=== PATIENT | female | born 1955 | race Caucasian/White ===

== ENCOUNTER 2018-09-23 17:17 | Observation (INO) | payer OTHER, SELFPAY ==
[2018-09-23] VITALS (12 sets, daily range): BP systolic 142–181; BP diastolic 83–127; PULSE 103–143; RESP 18–30; TEMP 36.8–37.2; O2SAT 93–98; BMI 24.7; BMI 24.5
--- NOTE | 2018-09-23 17:31 | EKG12_ITS ---
Test Reason : SOB Blood Pressure : / mmHG Vent. Rate : 124 BPM Atrial Rate : 124 BPM P-R Int : 162 ms QRS Dur : 082 ms QT Int : 296 ms P-R-T Axes : 058 065 125 degrees QTc Int : 425 ms Sinus tachycardia with Premature ventricular complexes or Fusion complexes Nonspecific ST and T wave abnormality Abnormal ECG Confirmed by SHAUNA SIBLEY, KAILEE ([id number]), publication editor GLORIA BEAN ([id number]) on 09/27/2018 1:08:24 PM Referred By: LETITIA Confirmed By:ALCIRA VILLATORO MD
[2018-09-23] MEDS: Ipratropium/Albuterol Sulfate 3 ML AMPUL.NEB INHALATION (17:43)
--- NOTE | 2018-09-23 17:48 | RAD_ITS ---
STUDY: X-RAY CHEST REASON FOR EXAM: Female, 63 years old. Cough TECHNIQUE: PA and lateral views of the chest COMPARISON: None. FINDINGS: There is elevation of the left hemidiaphragm. The lungs are clear. There are no pleural effusions. There is no pneumothorax. The cardiomediastinal contour is obscured. The visualized osseous structures are within normal limits. There is prominent gaseous distention of the colon as well as gaseous distention of the visualized small bowel. RAD/Chest PA and Lateral IMPRESSION: Clear lungs. Elevation of the left hemidiaphragm. Prominent gaseous distention of the colon as well as gaseous distention of the visualized small bowel. Correlate clinically. CT of the abdomen and pelvis with IV and by mouth contrast is suggested. Electronically Signed: Manuel Rico, at 18:02 EDT Tel , Service support ,
[2018-09-23 17:49] LABS: Absolute Lymphocyte Count 1.55 X10^3/uL (0.83-4.51); Basophil# 0.05 X10^3/uL; Basophil% 0.4 % (0-1); Eosinophil# 0.06 X10^3/uL; Eosinophils% 0.4 % (0-5); Hematocrit 41.8 % (37-47); Lymphocyte # 1.55 X10^3/ul (4.0); Lymphocyte % 11.1 % (19-41); Mean Corp Hgb Conc 33.5 g/dL (32-36); Mean Corpuscular Hgb 29.5 pg (27.0-32.0); Mean Platelet Vol. 10.3 fl (6.2-12.0); Monocyte# 1.26 X10^3/uL; NRBC Flagged by Analyzer 0 % (0-5); Neutrophil # 11.03 X10^3/uL (2.7-7.7); Neutrophil % 78.7 % (47-70); Platelet Count 325 K/mm3 (150-450); RBC Distribution Width CV 14.1 % (11.6-14.6); RBC Distribution Width SD 45.3 fl (35.1-43.9); Red Blood Count 4.75 M/mm3 (4.2-5.4)
[2018-09-23] MEDS: Albuterol 2.5 MG/3 ML VIAL.NEB. INHALATION ×2 (17:56→18:49)
[2018-09-23 18:05] LABS: ALB/GLOB Ratio 1.2 RATIO (0.9-2.4); AST(SGOT) 15 U/L (15-37); Alanine Aminotransfer ALT/SGPT 30 U/L (13-56); Alkaline Phosphatase 95 U/L (45-117); Anion Gap 8 (5-15); BUN 7 mg/dL (7-18); Calcium,Total 9.6 mg/dL (8.5-10.1); Chloride 103 mmol/L (98-107); EST Glomerular Filtration Rate 90 mL/min (>60); Est Glom Filt Rate - Afr Amer 109 mL/min (>60); Estimated Creatinine Clearance 68.05 ml/min; Globulin 3.2 g/dL (2.2-4.2); Glucose 144 mg/dL (74-106); Potassium 3.8 mmol/L (3.5-5.1); Protein, Total 7.2 g/dL (6.4-8.2); Sodium Level 134 mmol/L (136-145)
--- NOTE | 2018-09-23 18:07 | CT_ITS ---
STUDY: CTA CHEST REASON FOR EXAM: Female, 63 years old. Shortness of breath RADIATION DOSAGE (If Supplied By Facility): TECHNIQUE: The examination was performed with the intravenous administration of 100ml IV Isovue 300. Post-processing of the angiographic images was performed, with multiplanar reformation and 3D reconstruction. Individualized dose optimization techniques were used for this CT. COMPARISON: None. FINDINGS: Normal enhancement of the main pulmonary artery and right and left pulmonary arteries. Normal enhancement of the bilateral peripheral pulmonary arteries. There is no demonstrated pulmonary embolism. Normal thoracic aorta and visualized great vessels. There is no demonstrated aortic dissection. Normal heart and pericardium. Normal mediastinum. Normal hilar regions. Mild bronchial wall thickening and mild bilateral lower lobe/perihilar ground glass opacities are present. There is no dense consolidation. Normal pleura. Normal chest wall structures. Normal osseous structures. Reference CT abdomen and pelvis performed the same date for subdiaphragmatic findings. CT/CTA Chest W/WO Contrast IMPRESSION: No evidence of pulmonary embolus. Mild bronchial wall thickening and mild bilateral lower lobe/perihilar groundglass opacities, suggesting bronchitis. Electronically Signed: Manuel Rico, at 18:58 EDT Tel , Service support ,
--- NOTE | 2018-09-23 18:19 | CT_ITS ---
STUDY: CT ABDOMEN AND PELVIS WITH CONTRAST REASON FOR EXAM: Female, 63 years old. Shortness of breath RADIATION DOSAGE (If Supplied By Facility): DLP = ( 897.33 ) mGycm TECHNIQUE: Transaxial images were obtained from the dome of the diaphragm to the symphysis pubis without oral contrast. 100 ml of Isovue 300 contrast was administered. Sagittal and coronal images were reconstructed. Individualized dose optimization techniques were used for this CT. COMPARISON: None. FINDINGS: There is bronchial wall thickening at the lung bases with mild adjacent ground glass opacity. The visualized portions of the heart and pericardium are within normal limits. There are no calcified gallstones present. The liver is within normal limits. There are no suspicious hepatic lesions. The spleen is normal in size. The pancreas is within normal limits. The adrenal glands are within normal limits. There are no obstructing renal stones. There is no hydronephrosis. There is a left renal mid pole 2.9 cm cyst. Normal visualized stomach. There is no bowel obstruction or inflammation. The appendix is normal. The aorta is normal in caliber. There is no abdominal or pelvic free air, free fluid, fluid collection or lymphadenopathy. There are no destructive osseous lesions. Moderate to severe disc space loss is present at the L1-L2 level with grade [address]/Abdomen/Pelvis W IV Cont ONLY IMPRESSION: Bronchial wall thickening of the lung bases with mild adjacent groundglass opacity, possibly secondary to bronchitis. No acute intra-abdominal pathology. Electronically Signed: Manuel Rico, at 18:54 EDT Tel , Service support ,
[2018-09-23] MEDS: 0.9% Normal Saline 1,000 ML 1000 ML IV (18:25)
[2018-09-23 18:26] LABS: Lactic Acid 2.1 mmol/L (0.4-2.0)
--- NOTE | 2018-09-23 18:26 | ED.RN ---
LAB CALLED TO REPORT LACTIC 2.1, DR. DONG AND PRIMARY NURSE NOTIFIED.
--- NOTE | 2018-09-23 19:05 | ED.DCSUM_ITS ---
History of Present Illness Chief Complaint: Shortness of Breath Informant: Patient Onset: Days Context: Gradual Onset Timing: Continuous Current Severity: Moderate Maximum Severity: Severe Narrative: The patient presents to the emergency department with cough, fever, and shortness of breath. Patient has a history of asthma. She states that she was recently treated for pneumonia. She finished a course of doxycycline about a week ago. She states she is feeling better for about 3 or 4 days. Since then, she began to have worsening cough with productive sputum. She also admits to some chest tightness and dyspnea. She had a fever of 101 today. She denies any chest pain. She denies any nausea vomiting. She does admit to some generalized malaise and feels like she cannot get around without being short of breath. She has not used her inhalers at home. Prior similar symptoms: Yes Recent Illness/Hospitalization: Yes Past Medical History - Allergies and Home Meds Allergies/Adverse Reactions: Allergies erythromycin base [Erythromycin Base] Allergy (Verified 09/23/18 17:21) Rash pregabalin [From Lyrica] Allergy (Verified 09/23/18 17:21) Anaphylaxis ramipril [From Altace] Allergy (Verified 09/23/18 17:21) Anaphylaxis atenolol Adverse Reaction (Verified 09/23/18 17:21) Other Primary Care Physician: Manny Pickering MD [Primary Care Provider] - Prior records reviewed: Yes Surgical History: no surgical history Smoking Status: Never smoker Alcohol: None Drugs: None Review of Systems General: Reports: Fever Eyes: Denies: Visual changes - bilaterally, Diplopia ENT: Denies: Rhinorrhea, Sore throat Cardiovascular: Denies: Chest pain, Palpitations Respiratory: Reports: Dyspnea, Cough, Sputum Gastrointestinal: Denies: Abdominal pain, Nausea, Vomiting, Diarrhea, Melena, Hematochezia Genitourinary: Denies: Dysuria, Hematuria, Frequency Musculoskeletal: Denies: Back pain, Extremity Pain Skin: Denies: Rash, Wounds Neurological: Denies: Headache, Weakness, Numbness Psych: Denies: Depression Endocrine: Denies: Polyuria Physical Exam Vital Signs/Narrative: Vital Signs Temp Pulse Resp BP Pulse Ox 09/23/18 18:50 127 H 20 H 09/23/18 18:18 123 H 18 157/89 H 96 09/23/18 17:57 143 H 30 H 09/23/18 17:44 128 H 26 H 98 09/23/18 17:18 99 F 135 H 22 H 159/127 H 95 Inital Vital Signs reviewed: Yes General: Well nourished, Well developed, No Acute Distress Head: Normocephalic, Atraumatic Eyes: Perrl, EOMI ENT: Moist mucous membranes, No rhinorrhea Neck: Supple, Nontender Cardiovascular: Regular rhythm, No murmurs, Tachycardia Respiratory: No distress, Chest nontender, Wheezing, Decreased Air Movement Abdomen: Soft, Nontender, Nondistended, Normal bowel sounds Back: Nontender, Normal Inspection Extremities: Nontender, No edema Skin: Normal color, No rash Neurological: Alert, Oriented x3, Cranial nerves II-XII grossly intact, Normal Strength, Normal Sensation Psychological: Normal affect, Normal Mood Diagnostic/Tx/Re-eval Chest X-Ray - ED: 2 View, Normal, Heart, Lungs Clinical Impression(s) from Imaging Studies Chest X-Ray 09/23/18 17:48 IMPRESSION: Clear lungs. Elevation of the left hemidiaphragm. Prominent gaseous distention of the colon as well as gaseous distention of the visualized small bowel. Correlate clinically. CT of the abdomen and pelvis with IV and by mouth contrast is suggested. Electronically Signed: Manuel Rico, at 18:02 EDT Tel , Service support , Chest CTA 09/23/18 18:07 IMPRESSION: No evidence of pulmonary embolus. Mild bronchial wall thickening and mild bilateral lower lobe/perihilar groundglass opacities, suggesting bronchitis. Electronically Signed: Manuel Rico, at 18:58 EDT Tel , Service support , Abdomen/Pelvis CT 09/23/18 18:19 IMPRESSION: Bronchial wall thickening of the lung bases with mild adjacent groundglass opacity, possibly secondary to bronchitis. No acute intra-abdominal pathology. Electronically Signed: Manuel Rico, at 18:54 EDT Tel , Service support , Abnormal Lab Results 09/23/18 09/23/18 09/23/18 17:40 17:40 17:40 WBC 14.0 H RBC 4.75 Hgb 14.0 Hct 41.8 MCV 88.0 MCH 29.5 MCHC 33.5 RDW Std Deviation 45.3 H RDW Coeff of Elisabeth 14.1 Plt Count 325 MPV 10.3 Immature Gran % (Auto) 0.400 Neut % (Auto) 78.7 H Lymph % (Auto) 11.1 L [place] % (Auto) 9.0 Eos % (Auto) 0.4 Baso % (Auto) 0.4 Absolute Neuts (auto) 11.0 H Absolute Lymphs (auto) 1.55 Nucleated RBC % 0 Sodium 134 L Potassium 3.8 Chloride 103 Carbon Dioxide 23.0 Anion Gap 8 BUN 7 Creatinine 0.70 Estim Creat Clear Calc 68.05 Est GFR (MDRD) Af Amer 109 Est GFR (MDRD) Non-Af 90 BUN/Creatinine Ratio 10.0 Glucose 144 H Lactic Acid 2.1 H Calcium 9.6 Total Bilirubin 0.80 AST 15 ALT 30 Alkaline Phosphatase 95 Troponin I < 0.015 Total Protein 7.2 Albumin 4.0 Globulin 3.2 Albumin/Globulin Ratio 1.2 - Rhythm Strip Rhythm Strip: Sinus Tach Rate: 130 Ectopy: None - EKG Initial EKG Interpretation: No Acute Injury Pattern, Sinus Tachycardia Prior: Unchanged - Medical Decision Making The patient presents with cough, fever, and shortness of breath. She has diminished air movement and wheezing all lung barnes. She is also tachypneic and tachycardic. Sepsis work-up was pursued. Chest x-ray does not show evidence of focal infiltrate, however the patient does have a leukocytosis and a mildly elevated lactic acid. With her persistent tachycardia and dyspnea, I did obtain a CTA of her chest. There is no evidence of pulmonary embolus but she does have patchy bilateral lower lobe infiltrates. The patient will be started on IV Levaquin. Given her persistent dyspnea, I do feel that she would benefit from admission. The patient was discussed with the hospitalist. Impression 1. Acute dyspnea 2. Bronchitis with persistent bronchospasm 3. Sepsis ED Disposition - Plan for ED Patient: Referrals: Manny Pickering MD [Primary Care Provider] -
--- NOTE | 2018-09-23 19:07 | NURSING ---
3 ATTEMPTS AT COLLECTING THE SECOND BLOOD CULTURE WAS DONE AND UNSUCCESSFUL. DR DONG NOTIFIED.
--- NOTE | 2018-09-23 19:09 | HP.PCM_ITS ---
History of Present Illness Date of Admission: 09/23/18 Chief Complaint: shortness of breath, wheezing The patient is a 63 year old F with past medical history of asthma, hypertension and diabetes as well as hyperlipidemia. She was admitted through the ED on 09/23/2018 with complaint of shortness of breath, wheezing and a cough for the past few days. Patient states was treated for pneumonia about 2 weeks ago with a course of p.o. doxycycline and states she completed the course. A few days ago started having worsening shortness of breath with wheezing and a cough productive of greenish sputum. Patient states she has not been very compliant with her asthma inhalers because she was not sure if she needed it or not. She had no assisted fever or chills but states wheezing and shortness of breath got worse to the point where she could not fully complete her sentences so she decided to come into the ED. Review of systems is otherwise negative. In the ED, vitals were significant for pulse rate of 128, respiratory rate of 23 and blood pressure 181/90. She was saturating at 96% on room air. CBC showed white cell count of 14 and BMP was unremarkable. Lactic acid was elevated at 2.1. Chest x-ray done showed clear lungs and elevation of the left hemidiaphragm with prominent gaseous distention of the colon as well as gaseous distention of the visualized small bowel. CT of the chest showed no evidence of PE but showed mild bronchial wall thickening and mild bilateral lower lobe and perihilar groundglass opacity suggesting bronchitis. CT of the abdomen and pelvis showed no acute intra-abdominal pathology but showed bronchial wall thickening of the lung bases with mild adjacent groundglass opacities possibly secondary to bronchitis. She has been admitted for acute asthma exacerbation and sepsis due to infectious bronchitis. [] Past Medical History Allergies erythromycin base [Erythromycin Base] Allergy (Verified 09/23/18 17:21) Rash pregabalin [From Lyrica] Allergy (Verified 09/23/18 17:21) Anaphylaxis ramipril [From Altace] Allergy (Verified 09/23/18 17:21) Anaphylaxis atenolol Adverse Reaction (Verified 09/23/18 17:21) Other Home Medications: Ambulatory Orders Medication Instructions Recorded Atorvastatin Calcium [Lipitor] 20 mg PO QHS 04/02/13 Irbesartan [Avapro] 150 mg PO DAILY 04/02/13 Montelukast [Singulair] 10 mg PO DAILY 04/02/13 metFORMIN HCl [Glucophage] 500 mg PO DAILY 04/02/13 Aspirin [Aspir 81] 81 mg PO DAILY 09/23/18 Cetirizine HCl [Zyrtec] 10 mg PO DAILY 09/23/18 Cholecalciferol (VIT D3) [Vitamin 1,000 unit PO DAILY 09/23/18 D] Gabapentin [Neurontin] 300 mg PO BID 09/23/18 Meloxicam 15 mg PO DAILY 09/23/18 Multivit-Min/Iron/Folic/Lutein 1 tab PO DAILY 09/23/18 [Centrum Silver Women Tablet] Tolterodine Tartrate [Tolterodine 4 mg PO DAILY 09/23/18 Tartrate ER] Surgical History: no surgical history Psychiatric History: No pertinent psych hx 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 Denies: Chills, Fever, Weight Change Eyes: Denies: Blurred vision HEENT: Denies: Head Aches, Sinus Congestion, Sinus Drainage Cardiovascular: Denies: Chest Pain, Palpitations Respiratory: Reports: Cough, Shortness of Breath, Shortness of breath at rest, Shortness of breath upon exertion, Sputum production, Wheezing Gastrointestinal: Denies: Abdominal Pain, Nausea, Vomiting Genitourinary: Denies: Dysuria Musculoskeletal: Denies: Joint Pain, Joint Tenderness Skin: Denies: Rash, Wounds Neurological: Denies: Numbness, Tingling, Focal weakness Psychiatric: Denies: Anxiety, Depression, Homicidal Ideations, Suicidal Ideations Hematologic/ Lymphatic: Denies: Easy Bruising, Easy Bleeding VTE Information - Inpt Only VTE Present on Admission: No VTE Pharm Prophylaxis ordered?: Yes - Physical Exam General: Alert, Oriented x3, Cooperative, Lethargic HEENT: Atraumatic, PERRLA, EOMI, Normocephalic Oral: Dry Mucosa Neck: Supple, No JVD, Negative Carotid Bruits Lungs: Tachypneic, Using Accessory Muscles, Wheezes, - - decreased breath sounds in all lung barnes, with audible expiratory wheezing adn rhonchi, as well as few crackles in all lung barnes. has difficulty completing sentences without getting SOB. Cardiovascular: Normal S1, Normal S2, No murmurs, Tachycardic Abdomen: Bowel Sounds Present, Soft, Non Tender Extremities: No clubbing, No cyanosis, No edema, Capillary Refill Less than 3 Seconds Skin: No rashes, No breakdown Musculoskeletal: No Tenderness to Palpation of Joints or Extremities Lymphatic: No Cervical, Supraclavicular, or Inguinal Adenopathy Neurological: Cranial nerves II-XII grossly intact, Neuro grossly intact, Motor Exam 5/5 strength throughout Psych/Mental Status: Normal Affect, Appropriate, Alert and oriented to time, place, person, mood and affect Vital Signs Temp Pulse Resp BP Pulse Ox 99 F 127 H 20 H 157/89 H 96 09/23/18 17:18 09/23/18 18:50 09/23/18 18:50 09/23/18 18:18 09/23/18 18:18 Oxygen Delivery Method Room Air Weight: 140 lb Body Mass Index (BMI) 24.7 Laboratory Tests Past 24 Hrs 09/23/18 09/23/18 09/23/18 17:40 17:40 17:40 WBC 14.0 H RBC 4.75 Hgb 14.0 Hct 41.8 MCV 88.0 MCH 29.5 MCHC 33.5 RDW Std Deviation 45.3 H RDW Coeff of Elisbaeth 14.1 Plt Count 325 MPV 10.3 Immature Gran % (Auto) 0.400 Neut % (Auto) 78.7 H Lymph % (Auto) 11.1 L [place] % (Auto) 9.0 Eos % (Auto) 0.4 Baso % (Auto) 0.4 Absolute Neuts (auto) 11.0 H Absolute Lymphs (auto) 1.55 Nucleated RBC % 0 Sodium 134 L Potassium 3.8 Chloride 103 Carbon Dioxide 23.0 Anion Gap 8 BUN 7 Creatinine 0.70 Estim Creat Clear Calc 68.05 Est GFR (MDRD) Af Amer 109 Est GFR (MDRD) Non-Af 90 BUN/Creatinine Ratio 10.0 Glucose 144 H Lactic Acid 2.1 H Calcium 9.6 Total Bilirubin 0.80 AST 15 ALT 30 Alkaline Phosphatase 95 Troponin I < 0.015 Total Protein 7.2 Albumin 4.0 Globulin 3.2 Albumin/Globulin Ratio 1.2 Diagnostic Data Chest X-Ray 09/23/18 17:48 IMPRESSION: Clear lungs. Elevation of the left hemidiaphragm. Prominent gaseous distention of the colon as well as gaseous distention of the visualized small bowel. Correlate clinically. CT of the abdomen and pelvis with IV and by mouth contrast is suggested. Electronically Signed: Manuel Rico, at 18:02 EDT Tel , Service support , Chest CTA 09/23/18 18:07 IMPRESSION: No evidence of pulmonary embolus. Mild bronchial wall thickening and mild bilateral lower lobe/perihilar groundglass opacities, suggesting bronchitis. Electronically Signed: Manuel Rico, at 18:58 EDT Tel , Service support , Abdomen/Pelvis CT 09/23/18 18:19 IMPRESSION: Bronchial wall thickening of the lung bases with mild adjacent groundglass opacity, possibly secondary to bronchitis. No acute intra-abdominal pathology. Electronically Signed: Manuel Richteri, at 18:54 EDT Tel , Service support , Assessment/Plan 63-year-old female admitted with a complaint of worsening shortness of breath and a cough productive of greenish sputum. 1. Sepsis due to acute bronchitis * admit to PCU with telemetry * SIRS criteria is 3/4 (tachycardia, tachypnea and leucocytosis) * started on IV levaquin; will continue * get sputum cultures and blood cultures, as well as urine for strep and legionella antigens * hydrate gently with IVF * repeat lactic acid as per sepsis protocol; lactic acid was 2.1 2. Acute asthmatic exacerbation precipitated by acute bronchitis * Also worsened by noncompliance with her inhalers. Tachycardia and tachypnea could also be due to acute asthma exacerbation. * That IV Solu-Medrol 40 mg every 8. States she has not been on steroids recently. * Breathing treatments with DuoNeb's. * Titrate oxygen to maintain saturation above 90%. * To put on BiPAP as needed. * Continue Singulair * 3. Hypertension: Fairly controlled. On atorvastatin. 4. Diabetes mellitus: On metformin 500 mg daily. Will hold on account of lactic acidosis. Sliding scale. Accuchecks ACHS DVT prophylaxis: Lovenox Code Status: Full code * Patient counseled extensively about different types of CODE STATUS including full code, DNR CCA and DNR CCA. Patient elects to be (). Total [id number] time () minutes. Code Visit Inpatient E&M: 49246 Init Hosp L3 Procedures: 91205 Advncd Care Plan 30 Min
[2018-09-23] MEDS: levoFLOXacin IV 500 MG/100 ML BAG 100 MG IV (19:16)
[2018-09-23] MEDS: MethylPREDNISolone 125 MG/2 ML Vial IV (19:16)
[2018-09-23 21:42] LABS: Reflex Lactate? Y
[2018-09-23] MEDS: 0.9% Normal Saline 1,000 ML 150 ML IV (22:03)
[2018-09-23] MEDS: Insulin Lispro 100 UNIT/ML INSULN.PEN SC (22:13)
[2018-09-23 22:30] LABS: Lactic Acid 3.9 mmol/L (0.4-2.0)
--- NOTE | 2018-09-23 23:30 | NURSING ---
This RN gave report to step down RN and handed over care at this time.
[2018-09-23 23:40] LABS: Allen Test POS; Base Excess -6 mmol/L (-2 to +2); Blood Gas Specimen Type ART; O2 Delivery Device Nasal Can; PO2 92 mmHG (75-100); SITE L Radial; SO2 97 % (95-99); Time Given 2320; Total Carbon Dioxide 20 mmol/L; pCO2 29.9 mmHg (35-45); pH 7.41 (7.35-7.45)
[2018-09-24] VITALS (18 sets, daily range): BP systolic 111–160; BP diastolic 78–99; PULSE 82–108; RESP 12–24; TEMP 36.6–36.9; O2SAT 94–100
[2018-09-24 00:06] LABS: Bedside Glucose 152 mg/dL (70-110)
[2018-09-24] MEDS: guaiFENesin 1,200 MG Tablet 1200 MG PO ×2 (00:09→09:49)
[2018-09-24] MEDS: 0.9% Normal Saline 1,000 ML 999 ML IV (00:10)
--- NOTE | 2018-09-24 01:21 | CPS ---
Attempted to start bipap on pt, 09/12 and 11/13 both settings pt said it felt like she was being smothered. Pt unable to tolerate bipap. 2L nasal o2 on , pt breathing easy and comfortable with head of bed up. RN notified.
[2018-09-24] MEDS: 0.9% Normal Saline 1,000 ML 150 ML IV (01:32)
[2018-09-24 02:04] LABS: Bacteria 0 SEEN /hpf (None Seen); Mucous, Urine 0 SEEN /hpf (<or=2+); Squamous Epithelial Cells - UA 0 SEEN /hpf (5-10); White Blood Cells 0 SEEN /hpf (0-5)
[2018-09-24 02:07] LABS: Color, Urine Straw (Yellow); Glucose, Dipstick 50 mg/dl (Normal); Ketone-Dipstick 50 mg/dl (Negative); Leukocyte Esterase-Dipstick Negative /ul (Negative); Nitrite-Dipstick Negative (Negative); Occult Blood-Urine 10 /ul (Negative); Protein-Dipstick Negative (Negative); Urine Bilirubin Dipstick Negative (Negative); Urine Clarity Clear (Clear); Urine Urobilinogen Normal (Normal)
[2018-09-24 02:13] LABS: Red Blood Cells-Urine 0-5 SEEN /hpf (0-5)
[2018-09-24 02:42] LABS: Lactic Acid 1.6 mmol/L (0.4-2.0)
[2018-09-24] MEDS: 0.9% NaCl Peripheral Flush Adult/Peds IV ×2 (05:07→14:25)
[2018-09-24 06:33] LABS: Absolute Lymphocyte Count 0.63 X10^3/uL (0.83-4.51); Absolute Neutrophil Count 11.6 X10^3/uL (2.0-7.7); Basophil# 0.01 X10^3/uL; Basophil% 0.1 % (0-1); Hematocrit 34.6 % (37-47); Hemoglobin 11.5 g/dL (12.0-15.0); Lymphocyte # 0.63 X10^3/ul (4.0); Mean Corp Hgb Conc 33.2 g/dL (32-36); Mean Corpuscular Hgb 29.2 pg (27.0-32.0); Mean Corpuscular Volume 87.8 fL (81-99); Mean Platelet Vol. 10.3 fl (6.2-12.0); Monocyte# 0.28 X10^3/uL; Monocyte% 2.2 % (0-10); NRBC Flagged by Analyzer 0 % (0-5); Neutrophil % 92.3 % (47-70); Platelet Count 273 K/mm3 (150-450); RBC Distribution Width CV 14.3 % (11.6-14.6); RBC Distribution Width SD 45.7 fl (35.1-43.9); Red Blood Count 3.94 M/mm3 (4.2-5.4); White Blood Count 12.6 K/mm3 (4.4-11.0)
[2018-09-24] MEDS: Insulin Lispro 100 UNIT/ML INSULN.PEN SC ×2 (06:34→11:58)
[2018-09-24 06:46] LABS: Bedside Glucose 155 mg/dL (70-110)
[2018-09-24 06:56] LABS: Anion Gap 8 (5-15); BUN 5 mg/dL (7-18); BUN/Creat Ratio 9.8 RATIO (10-20); Calcium,Total 7.8 mg/dL (8.5-10.1); Chloride 112 mmol/L (98-107); Creatinine, Serum 0.51 mg/dL (0.55-1.02); EST Glomerular Filtration Rate 130 mL/min (>60); Est Glom Filt Rate - Afr Amer 157 mL/min (>60); Glucose 166 mg/dL (74-106); Potassium 3.6 mmol/L (3.5-5.1); Sodium Level 142 mmol/L (136-145)
[2018-09-24] MEDS: Multivitamins,Ther W-Minerals Tablet 1 TABLET PO (08:42)
[2018-09-24] MEDS: Gabapentin 300 MG Capsule PO (08:42)
[2018-09-24] MEDS: Aspirin E.C. 81 MG Tablet PO (08:42)
[2018-09-24] MEDS: Loratadine 10 MG Tablet PO (09:49)
[2018-09-24] MEDS: Tolterodine Tartrate 4 MG CAP.SA PO (09:49)
[2018-09-24] MEDS: Enoxaparin 40 MG/0.4 ML Syringe SC (09:49)
[2018-09-24] MEDS: Losartan Potassium 50 MG Tablet PO (09:49)
[2018-09-24] MEDS: Meloxicam 15 MG Tablet PO (09:49)
[2018-09-24] MEDS: Montelukast 10 MG Tablet PO (09:49)
[2018-09-24] MEDS: levoFLOXacin IV 750 MG/150 ML BAG 100 MG IV (10:11)
[2018-09-24] MEDS: Ipratropium/Albuterol Sulfate 3 ML AMPUL.NEB INHALATION (11:15)
--- NOTE | 2018-09-24 11:15 | DCINST_ITS ---
You will use the following diet at home:: Calorie/Carbohydrate Controlled (specify 1200, 1400, etc) - 1800 calories/day Your food should be the consistency of: Regular Your liquids should be the consistency of: Regular/Thin Discharge Activity: Return to Normal Activity Call your doctor if you observe: Fever of 101 or Higher, Shortness of breath Allergies/Adverse Reactions: Allergies erythromycin base [Erythromycin Base] Allergy (Verified 09/23/18 17:21) Rash pregabalin [From Lyrica] Allergy (Verified 09/23/18 17:21) Anaphylaxis ramipril [From Altace] Allergy (Verified 09/23/18 17:21) Anaphylaxis atenolol Adverse Reaction (Verified 09/23/18 17:21) Other Medications to take at Discharge Atorvastatin Calcium [Lipitor] 20 mg PO QHS 04/02/13 Irbesartan [Avapro] 150 mg PO DAILY 04/02/13 Montelukast [Singulair] 10 mg PO DAILY 04/02/13 Aspirin [Aspir 81] 81 mg PO DAILY 09/23/18 Cetirizine HCl [Zyrtec] 10 mg PO DAILY 09/23/18 Cholecalciferol (VIT D3) [Vitamin D3] 1,000 unit PO DAILY 09/23/18 Gabapentin [Neurontin] 300 mg PO BID 09/23/18 Meloxicam 15 mg PO DAILY 09/23/18 Multivit-Min/Iron/Folic/Lutein [Centrum Silver Women Tablet] 1 tab PO DAILY 09/23/18 Tolterodine Tartrate [Tolterodine Tartrate ER] 4 mg PO DAILY 09/23/18 Albuterol Inhaler [Ventolin Hfa] 1 - 2 puff INHALATION Q4H PRN PRN #1 inhaler 09/24/18 Guaifenesin [Mucinex] 1,200 mg PO BID #10 tab 09/24/18 Prednisone 2 tab PO DAILY #10 tab 09/24/18 levoFLOXacin tablet [Levaquin tablet] 750 mg PO DAILY #5 tab 09/24/18 metFORMIN HCl [Glucophage] 500 mg PO DAILY #0 09/24/18 The following prescriptions were given: levoFLOXacin tablet [Levaquin tablet] 750 mg PO DAILY #5 tab Transmission Status: Pending to [facility] Guaifenesin [Mucinex] 1,200 mg PO BID #10 tab Transmission Status: Pending to [facility] Prednisone 2 tab PO DAILY #10 tab Transmission Status: Pending to [facility] Albuterol Inhaler [Ventolin Hfa] 1 - 2 puff INHALATION Q4H PRN PRN #1 inhaler PRN Reason: Shortness Of Breath Transmission Status: Pending to [facility] Primary Care Physician: Manny Pickering MD [Primary Care Provider] - Within 1 Week Test Results: Test results from this visit will be discussed in further detail at your follow- up appointment, if applicable. Proposed Discharge Date: 09/24/18
--- NOTE | 2018-09-24 11:17 | PCM.DC.SUM ---
Discharge Date and Diagnosis - Problem List Patient Problems: Active and Suspected Problems Severe sepsis (Acute) Bronchitis (Acute) Date of Admission: 09/23/18 Date of Discharge: 09/24/18 - Primary Discharge Diagnosis Active and Suspected Problems Bronchitis (Acute) Hospital Course and Treatment Imaging Results: Clinical Impression(s) from Imaging Studies Chest X-Ray 09/23/18 17:48 IMPRESSION: Clear lungs. Elevation of the left hemidiaphragm. Prominent gaseous distention of the colon as well as gaseous distention of the visualized small bowel. Correlate clinically. CT of the abdomen and pelvis with IV and by mouth contrast is suggested. Electronically Signed: Manuel Rico, at 18:02 EDT Tel , Service support , Chest CTA 09/23/18 18:07 IMPRESSION: No evidence of pulmonary embolus. Mild bronchial wall thickening and mild bilateral lower lobe/perihilar groundglass opacities, suggesting bronchitis. Electronically Signed: Manuel Rico, at 18:58 EDT Tel , Service support , Abdomen/Pelvis CT 09/23/18 18:19 IMPRESSION: Bronchial wall thickening of the lung bases with mild adjacent groundglass opacity, possibly secondary to bronchitis. No acute intra-abdominal pathology. Electronically Signed: Manuel Rico, at 18:54 EDT Tel , Service support , Operations: None Procedures: None Summary of Care Provided: The patient is a 63 year old F presents with cough, fever and shortness of breath. Patient was treated recently with an biotics for pneumonia with doxycycline and was feeling well for a few days way to get worse. At home, patient had a fever of 101 Fahrenheit. Presented to the emergency room and underwent CAT scans that showed some bronchitis and no definitive infiltrate. Patient was brought to the hospital, started on high-dose IV steroids with methylprednisolone 40 mg 3 times daily plus received 2 doses of Levaquin. Today, the patient is feeling much better. Does have some faint crackles in bases but otherwise clear otherwise doing well. Patient had an amatory pulse ox to see if she does require any oxygen when she leaves but that patient be discharged with prednisone burst, complete 7-day course of Levaquin and an albuterol metered-dose inhaler. Patient instructed to follow-up with primary care provider in about a week's time to make sure that she is continued to improve. Patient did take only have a severe sepsis upon arrival with a lactic acid initially 2.1 that peaked at 3.9. Patient is also tachycardic and tachypneic. [] Patient Problems: Active and Suspected Problems Severe sepsis (Acute) Bronchitis (Acute) - Physical Exam General: Alert, No apparent distress HEENT: Atraumatic, Normocephalic Oral: Moist Mucosa, No Gingival or Mucosal Lesions/ Ulcerations Neck: No Nodes, Thyroid Normal Size and Texture Lungs: Diminished, - - bibasilar crackles. Cardiovascular: Regular rate, Regular Rhythm, Normal S1, Normal S2, No murmurs Abdomen: Bowel Sounds Present, Soft, Non Tender, Non-Distended, No Hepato-splenomegaly Extremities: No edema, No Calf Tenderness Skin: No rashes, No breakdown Psych/Mental Status: Normal Affect, Appropriate Vital Signs Temp Pulse Resp BP Pulse Ox 36.7 C 104 H 18 128/87 H 98 09/24/18 09:40 09/24/18 11:07 09/24/18 09:40 09/24/18 09:40 09/24/18 09:40 Oxygen Flow Rate (L/min) 2 Oxygen Delivery Method Nasal Cannula Weight: 62.8 kg Body Mass Index (BMI) 24.5 Intake and Output for Last 24 Hours 09/22/18 09/23/18 09/24/18 23:59 23:59 23:59 Intake Total 2637 / 2637 Output Total 1502 / 1502 Balance 1135 / 1135 Microbiology Past 72 Hours 09/24/18 08:32 Gram Stain - Final Sputum, Expectorated/Coughed Laboratory Tests Past 24 Hrs 09/23/18 09/23/18 09/23/18 17:40 17:40 17:40 WBC 14.0 H RBC 4.75 Hgb 14.0 Hct 41.8 MCV 88.0 MCH 29.5 MCHC 33.5 RDW Std Deviation 45.3 H RDW Coeff of Elisabeth 14.1 Plt Count 325 MPV 10.3 Immature Gran % (Auto) 0.400 Neut % (Auto) 78.7 H Lymph % (Auto) 11.1 L [place] % (Auto) 9.0 Eos % (Auto) 0.4 Baso % (Auto) 0.4 Absolute Neuts (auto) 11.0 H Absolute Lymphs (auto) 1.55 Nucleated RBC % 0 Specimen Type Sample Site pH Bicarbonate Actual POC Total CO2 Base Excess O2 Saturation ABG pCO2 ABG pO2 [place] Test O2 Delivery Device Liter Flow Blood Gas Notified Whom Blood Gas Notified Time Sodium 134 L Potassium 3.8 Chloride 103 Carbon Dioxide 23.0 Anion Gap 8 BUN 7 Creatinine 0.70 Estim Creat Clear Calc 68.05 Est GFR (MDRD) Af Amer 109 Est GFR (MDRD) Non-Af 90 BUN/Creatinine Ratio 10.0 Glucose 144 H Lactic Acid 2.1 H Calcium 9.6 Total Bilirubin 0.80 AST 15 ALT 30 Alkaline Phosphatase 95 Troponin I < 0.015 Total Protein 7.2 Albumin 4.0 Globulin 3.2 Albumin/Globulin Ratio 1.2 Urine Color Urine Clarity Urine pH Ur Specific [place] Urine Protein Urine Glucose (UA) Urine Ketones Urine Occult Blood Urine Nitrite Urine Bilirubin Urine Urobilinogen Ur Leukocyte Esterase Urine RBC Urine WBC Ur Squamous Epith Cells Urine Bacteria Urine Mucus 09/23/18 09/23/18 09/24/18 21:57 23:33 01:50 WBC RBC Hgb Hct MCV MCH MCHC RDW Std Deviation RDW Coeff of Elisabeth Plt Count MPV Immature Gran % (Auto) Neut % (Auto) Lymph % (Auto) [place] % (Auto) Eos % (Auto) Baso % (Auto) Absolute Neuts (auto) Absolute Lymphs (auto) Nucleated RBC % Specimen Type ART Sample Site L Radial pH 7.41 Bicarbonate Actual 19.0 L POC Total CO2 20 Base Excess -6 L O2 Saturation 97 ABG pCO2 29.9 L ABG pO2 92 [place] Test POS O2 Delivery Device Nasal Can Liter Flow 2.0 Blood Gas Notified Whom [facility] Blood Gas Notified Time 2320 Sodium Potassium Chloride Carbon Dioxide Anion Gap BUN Creatinine Estim Creat Clear Calc Est GFR (MDRD) Af Amer Est GFR (MDRD) Non-Af BUN/Creatinine Ratio Glucose Lactic Acid 3.9 H Calcium Total Bilirubin AST ALT Alkaline Phosphatase Troponin I Total Protein Albumin Globulin Albumin/Globulin Ratio Urine Color Straw Urine Clarity Clear Urine pH 6.0 Ur Specific [place] 1.010 Urine Protein Negative Urine Glucose (UA) 50 H Urine Ketones 50 H Urine Occult Blood 10 H Urine Nitrite Negative Urine Bilirubin Negative Urine Urobilinogen Normal Ur Leukocyte Esterase Negative Urine RBC 0-5 SEEN Urine WBC 0 SEEN Ur Squamous Epith Cells 0 SEEN Urine Bacteria 0 SEEN Urine Mucus 0 SEEN 09/24/18 09/24/18 09/24/18 02:11 05:45 05:45 WBC 12.6 H RBC 3.94 L Hgb 11.5 L Hct 34.6 L MCV 87.8 MCH 29.2 MCHC 33.2 RDW Std Deviation 45.7 H RDW Coeff of Elisabeth 14.3 Plt Count 273 MPV 10.3 Immature Gran % (Auto) 0.400 Neut % (Auto) 92.3 H Lymph % (Auto) 5.0 L [place] % (Auto) 2.2 Eos % (Auto) 0.0 Baso % (Auto) 0.1 Absolute Neuts (auto) 11.6 H Absolute Lymphs (auto) 0.63 L Nucleated RBC % 0 Specimen Type Sample Site pH Bicarbonate Actual POC Total CO2 Base Excess O2 Saturation ABG pCO2 ABG pO2 [place] Test O2 Delivery Device Liter Flow Blood Gas Notified Whom Blood Gas Notified Time Sodium 142 Potassium 3.6 Chloride 112 H Carbon Dioxide 22.0 Anion Gap 8 BUN 5 L Creatinine 0.51 L Estim Creat Clear Calc 93.40 Est GFR (MDRD) Af Amer 157 Est GFR (MDRD) Non-Af 130 BUN/Creatinine Ratio 9.8 L Glucose 166 H Lactic Acid 1.6 Calcium 7.8 L Total Bilirubin AST ALT Alkaline Phosphatase Troponin I Total Protein Albumin Globulin Albumin/Globulin Ratio Urine Color Urine Clarity Urine pH Ur Specific [place] Urine Protein Urine Glucose (UA) Urine Ketones Urine Occult Blood Urine Nitrite Urine Bilirubin Urine Urobilinogen Ur Leukocyte Esterase Urine RBC Urine WBC Ur Squamous Epith Cells Urine Bacteria Urine Mucus POC Glucose 09/24/18 09/23/18 06:30 22:05 POC Glucose 155 H 152 H Discharge Diet: 1800 Calorie Control Diet Discharge Activity: Return to Normal Activity Call your doctor if you observe: Fever of 101 or Higher, Shortness of breath Home Medications: Medications to take at Discharge Atorvastatin Calcium [Lipitor] 20 mg PO QHS 04/02/13 Irbesartan [Avapro] 150 mg PO DAILY 04/02/13 Montelukast [Singulair] 10 mg PO DAILY 04/02/13 Aspirin [Aspir 81] 81 mg PO DAILY 09/23/18 Cetirizine HCl [Zyrtec] 10 mg PO DAILY 09/23/18 Cholecalciferol (VIT D3) [Vitamin D3] 1,000 unit PO DAILY 09/23/18 Gabapentin [Neurontin] 300 mg PO BID 09/23/18 Meloxicam 15 mg PO DAILY 09/23/18 Multivit-Min/Iron/Folic/Lutein [Centrum Silver Women Tablet] 1 tab PO DAILY 09/23/18 Tolterodine Tartrate [Tolterodine Tartrate ER] 4 mg PO DAILY 09/23/18 Albuterol Inhaler [Ventolin Hfa] 1 - 2 puff INHALATION Q4H PRN PRN #1 inhaler 09/24/18 Guaifenesin [Mucinex] 1,200 mg PO BID #10 tab 09/24/18 Prednisone 2 tab PO DAILY #10 tab 09/24/18 levoFLOXacin tablet [Levaquin tablet] 750 mg PO DAILY #5 tab 09/24/18 metFORMIN HCl [Glucophage] 500 mg PO DAILY #0 09/24/18 Following Prescrptions Were Given to Patient: levoFLOXacin tablet [Levaquin tablet] 750 mg PO DAILY #5 tab Transmission Status: Pending to [facility] Guaifenesin [Mucinex] 1,200 mg PO BID #10 tab Transmission Status: Pending to [facility] Prednisone 2 tab PO DAILY #10 tab Transmission Status: Pending to [facility] Albuterol Inhaler [Ventolin Hfa] 1 - 2 puff INHALATION Q4H PRN PRN #1 inhaler PRN Reason: Shortness Of Breath Transmission Status: Pending to [facility] Primary Care Physician: Manny Pickering MD [Primary Care Provider] - Within 1 Week Disposition: Home Minutes spent on discharge:: 28 Patient Condition:: Good Medical Necessity - Tobacco Use Smoking Status: Never smoker Meaningful Use Info Meaningful Use Diagnoses (Choose all that apply): None applicable Code Visit OBSV E&M: 58198 Observation care discharge
--- NOTE | 2018-09-24 11:45 | CASEMGMT ---
RN CM Assessment Presentation: Severe Sepsis, Bronchitis Intro role of CM and purpose of RN CM assessment to patient in room. Demographics, PCP and Pharmacy verified. Pt states she is independent, active and plans to return home on discharge. Pt is on O2 2L NC now, however does not use Oxygen at home. If continues, may need testing prior to dc, but anticipate pt will not require. PCP: Dr. Pickering Specialists: (hand and foot doctor) no other specialists per pt. Preferred Pharmacy: [facility] Insurance: [employer] Prescription Benefit: yes LNOK: SisterUnique Living Arrangements: Lives independently. No care needs identified. Pt states she is active normally. Transportation: pt drives DME: none HHC: none Patient DC goals: Home DC PLAN: Home Mabel RODRIGUEZ RN ACM
[2018-09-24 12:11] LABS: Bedside Glucose 170 mg/dL (70-110)
== END 2018-09-24 15:00 | disposition home or self-care (01) ==
LOC: ED 18:00 → PCU 09-24 07:12
PROVIDERS: Admitting Provider Student in an Organized Health Care Education/Training Program; Emergency Provider Emergency Medicine; Family Provider Family Medicine; PCP Family Medicine
DX: J20.9 Acute bronchitis, unspecified (principal); J45.901 Unspecified asthma with (acute) exacerbation; E11.9 Type 2 diabetes mellitus without complications; E78.5 Hyperlipidemia, unspecified; I10 Essential (primary) hypertension; Z91.14 Patient's other noncompliance with medication regimen; Z66 Do not resuscitate; Z79.82 Long term (current) use of aspirin; Z79.899 Other long term (current) drug therapy; Z88.1 Allergy status to other antibiotic agents; Z91.19 Patient's noncompliance with other medical treatment and regimen
CPT/HCPCS: 36415; 36600; 71046; 71275; 74177; 80048; 80053; 81001; 82803; 82962; 83605; 84484; 85025; 87040; 87070; 87205; 93005; 94002; 94640; 94667; 94762; 96361; 96365; 96366; 96376; 99218; 99251; 99285; J7030; Q9967; A4216; G0378; G0463

== ENCOUNTER 2018-11-30 08:00 | Outpatient (RCR) | payer OTHER, SELFPAY ==
[2018-09-23 20:05] VITALS: BMI 24.5
--- NOTE | 2018-11-01 09:03 | HP.PTEVAL_ITS ---
Patient's Visit Information FROY PITTMAN is a 63 year old F referred to Physical Therapy by Luis Kelley MD with a diagnosis of L RC Tear. Date of Evaluation: 11/01/18 Physical Therapist: Lorraine Smith DPT - Visit Plan Frequency: 2x /Week Duration: 4 Weeks Plan: Focus on UE strengthening, scapular/core s/s, decreasing pain. 11/01/18 HEP Prescribed: scapular retractions, B Ext. Rot., Serratus Wall Presses- postural education - Subjective Findings: Torn L RC. Previous attended PT at [facility] 5 years ago for torn RC. Reports tear has gotten worse/larger. 08/06/18 MRI - Confirmed L RC tear. Went back to for MRI after reaching for can of soup off second shelf & felt a clunk. Lives alone. Describes pain as strong ache. Worst: 8/10 Aggravating factors: sleeping on L side, picking up objects, reaching for objects, reaching for seatbelt (or any other time behind). best: 10 Relieving factors: Resting. After painful activity pain takes awhile to subside. Disrupts sleeping at night. 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 Pain localized to L shoulder. Just got over bronchitis 2 weeks ago after hospital stay & medication prescribed, x-ray showed 2 fractured ribs on R side. Told to get Bone Density test in a month. R thumb ligamentous replacement - wears brace o R hand when she needs. Braces on B fingers (tendons replaced via surgery). Occupation: Retired Activities: Cleaning around the house, lawn care, gardening, meetings, cooking. Exercise program: Intermittently - walks frequently. instructed pt. to hold off on therapy until it is fully torn & to cont. therapy for current treatment. R hand dominant (prefferred L hand times). PMH/Meds: See chart - Objective Posture: RS, FH - corrected w/ V/C but not maintained. Gait:L no deviations noted - good trunk rotation & arm swing. Sensation: WNL to gross B touch. Palpation: TTP at L UT/biceptial groove/supraspinatus. Strength: Scapular: fair minus- increased winging of left>right. Shoulder abd./add/flex 4-/5, Ext. 4+/5, IR/ER at neutral 4/5. ELbow flex/ext 4-/5. ROM: Shoulder Abd./Flex. - WFL (pain & end-range, muscle substitution.), Internal Rotation - WFL - slow & painful. Pa in at end range w/ all shoulder motions. Elbow WFL. Special Test: Empty Can/Full Can (-), Impingement (+) - Goals Goal 1:: Pt. will be I w/ HEP & progression Goal Time Frame: 4-6 Weeks Goal 2:: Pt. will demo 5/5 strength in L UE. Goal Time Frame: 4-6 Weeks Goal 3:: Pt. will maintain proper posture t/o tx session to demo improved core strength. Goal Time Frame: 4-6 Weeks Goal 4:: Patient will report no more than 2/10 pain for 1 week Goal Time Frame: 4-6 Weeks - Rehabilitation Potential Physical Therapy Diagnosis: Presets w/ hypmobility, poor posture, decreased L UE muscle performance, and pain which leads to decreased tolerance of ADL's. Rehabilitation Potential: Good - Anticipated Interventions Patient/Client Instruction: Educate patient on: Condition For the Purpose of:: To decrease pain Therapeutic Exercise to Include: Strength training, Endurance training, Body mechanics, Postural training, Flexibilty training, Active ROM, Scapular Strength/Stabilization For the Purpose of:: To improve muscle performance and motor function Cryotherapy (ice pack, ice massage): Yes Thermo therapy (hot pack): Yes Ultrasound (thermal/non thermal): Yes For the Purpose of:: To decrease pain Thank you for the opportunity to evaluate your patient. For Medicare and Medicare HMO plans, please review the plan of care and approve it. It will need to be FAXED BACK to us at [phone] for Medicare purposes. For Medicare only, by signing this I certify the plan of care. Please let me know if there are questions or concerns regarding this plan of care. Physician Signature: Date:
--- NOTE | 2018-11-30 08:35 | HP.PTDCSUM ---
HP - PT D/C Summary It has been my pleasure to treat FROY PITTMAN under orders from Luis Kelley MD, for the diagnosis of L RC Tear for a total of 6 visit(s). Discharge Date: Please see the following information for a summary of their discharge status. - Subjective Subjective: Patient reports that she was doing great- sleeping and able to do all ADLs without pain but then she cleaned out a closet and was doing a lot of overhead activties - Pain L SH Pain Intensity (Out of 10): 2 - Objective Objective/Function: Posture: good throughout treatment session Gait:L no deviations noted - good trunk rotation & arm swing. Sensation: WNL to gross B touch. Palpation: tender throughout shoulder. Strength: Scapular: fair plus- mild winging of left>right. Shoulder abd./add/flex 4+/5, Ext. 5/5, IR/ER at neutral 4+/5. ELbow flex/ext 4+/5. ROM: Shoulder: no pain at end ranges Elbow WFL. Special Test: Empty Can/Full Can (-), Impingement (+) - Goals Goal 1:: Pt. will be I w/ HEP & progression Goal Progress: Goal Met Goal 2:: Pt. will demo 5/5 strength in L UE. Goal Progress: Progressing Goal 3:: Pt. will maintain proper posture t/o tx session to demo improved core strength. Goal Progress: Goal Met Goal 4:: Patient will report no more than 2/10 pain for 1 week Goal Progress: Progressing - Plan Plan: Discharge to I HEP - D/C Information If there are questions or concerns regarding this patient's physical therapy, please feel free to call me at [phone]. Thank you for the referral of this patient. Sincerely, Lorraine Smith DPT
== END 2018-11-30 08:47 | disposition home or self-care (01) ==
LOC: PT 08:00
PROVIDERS: Family Provider Family Medicine; PCP Family Medicine; Referring Provider Orthopaedic Surgery; Visit Provider Orthopaedic Surgery
DX: M75.112 Incomplete rotator cuff tear or rupture of left shoulder, not specified as traumatic (principal)
CPT/HCPCS: 97110; 97161; 97164

== ENCOUNTER → 2020-01-23 09:54 | Outpatient (CLI) | payer OTHER, SELFPAY ==
[2018-09-23 20:05] VITALS: BMI 24.5
--- NOTE | 2020-01-23 10:01 | CDU_ITS ---
Reason For Study: STABLE BRANCH RETINAL VEIN Rt. Velocities/BP Lt. Velocities/BP Prox CCA 113.9/34.3 cm/sec. Prox CCA 112.5/25.3 cm/sec. Mid CCA 102.1/33.0 cm/sec. Mid CCA 87.9/32.7 cm/sec. Dist CCA 89.1/33.0 cm/sec. Dist CCA 85.5/27.8 cm/sec. Prox ICA 90.8/30.8 cm/sec. Prox ICA 83.4/25.7 cm/sec. Mid ICA 86.9/32.1 cm/sec. Mid ICA 92.0/34.3 cm/sec. Dist ICA 112.5/43.1 cm/sec. Dist ICA 94.4/39.2 cm/sec. Rt. ICA/CCA = 112.5/113.9=1.0. Lt. ICA/CCA = 94.4/112.5=0.8. Prox ECA 82.9/9.9 cm/sec. Prox ECA 79.7/6.0 cm/sec. Rt. Vert. 50.2/14.5 cm/sec. Lt. Vert. 22.6/0.0 cm/sec. Right Extracranial There is no significant atherosclerotic plaque noted in the right common carotid artery. There is intimal thickening but no significant atherosclerotic plaque noted in the right internal carotid artery. There is heterogeneous, irregular atherosclerotic plaque noted in the right external carotid artery. Antegrade flow is noted in the right vertebral artery. Left Extracranial There is homogeneous, smooth atherosclerotic plaque noted in the left common carotid artery. There is intimal thickening but no significant atherosclerotic plaque noted in the left internal carotid artery. There is intimal thickening but no significant atherosclerotic plaque noted in the left external carotid artery. Antegrade flow is noted in the left vertebral artery. Procedure Carotid Duplex [id number]. Exam performed in department. Interpretation Summary No significant atherosclerotic plaque or stenosis noted in the internal carotid arteries bilaterally. Flow within the vertebral arteries is antegrade bilaterally. Ordering Physician: Jimmy Piper Referring Physician: Howard Pickering Performed By: Cindy Isidro RDCS, RVT
== END ==
PROVIDERS: PCP Family Medicine; Referring Provider Ophthalmology; Visit Provider Ophthalmology
DX: H34.8312 Tributary (branch) retinal vein occlusion, right eye, stable (principal)
CPT/HCPCS: 93880

== ENCOUNTER 2020-03-07 08:00 | Outpatient (RCR) | payer OTHER, SELFPAY ==
[2018-09-23 20:05] VITALS: BMI 24.5
--- NOTE | 2020-02-15 08:57 | HP.PTEVAL ---
Patient's Visit Information FROY PITTMAN is a 64 year old F referred to Physical Therapy by Dr. Luis Kelley MD with a diagnosis of Left Shoulder Pain. Date of Evaluation: 02/15/20 Physical Therapist: Lorraine Smith DPT - Visit Plan Frequency: 2x /Week Duration: 3 Weeks Plan: HEP Given: Postural education, Mid Row, LAE, bilateral ER (GTB given- OTB at home) - Subjective Same left shoulder pain that comes and goes. In the anterior shoulder and radiates to the deltoid. No pain that radiates past the elbow. Wear and tear insidious onset- couple of years. Worst: 07/19 Agg: sleeping on it, reaching up into the cupboard. Can get it over head but it does not feel great. Did have an injection- 02/08/2020- that helped a lot. She feels it still hurts but is better- 50% better. Best: 02/18 Eases: rest, not reaching overhead. Does not use ice or heat. Sleep: wakes her up and hard to get comfortable- due to being a side sleeper. Prefers to sleep on the left side. No N/T in the fingers- No changes in finger dexterity or dropping things. No blurred vision, neck pain, dizziness. She is supposed to have lumbar surgery for stenosis but has been postponed due to COVID-19. Has had an EMG to check for carpal tunnel which cleared her cervical spine. Has not had recent x-ray or MRI of the shoulder. R thumb ligamentous replacement - wears brace on R hand when she needs. Braces on B fingers (tendons replaced via surgery). Occupation: Retired Activities: Cleaning around the house, lawn care, gardening, meetings, cooking. Exercise program: Not at this time- 3 days a week is her limit without overdoing it. If she gets half way around the grocery she is happy. R hand dominant. PMH/Meds: irbesartan, metformin, singluair, neurontin, mobic, zyrtec, detrol LA, lipitor, asprin, skelaxin, nasonex, proair, hydrocortsone,- HEDS, Reynaud's, high cholesterol, arthritis, cervial stenosis, lumbar DDD, rosacea - Objective Posture: RS, FH - corrected w/ V/C but not able to maintain. Gait:no deviations noted - good trunk rotation & arm swing. Sensation: WNL to gross B touch throughout bilateral UE Palpation: TTP at L UT/biceptial groove/supraspinatus. Strength: Scapular s/s: fair minus- increased winging of left>right. Shoulder abd./add/flex 4-/5, Ext. 4+/5, IR/ER at neutral 4/5. Elbow flex/ext 4-/5. ROM: Shoulder Abd./Flex. - WFL pain at end range, Internal Rotation behind the back - WFL - slow & painful. Pain at end range w/ all shoulder motions. Elbow WFL. Special Test: Empty Can/Full Can (-), Impingement Chapis Ross (+) - Goals Goal 1:: Patient will be I with HEP and progression Goal Time Frame: 4-6 Weeks Goal 2:: Patient will maintain proper posture t/o tx session to demo increased scap s/s Goal Time Frame: 4-6 Weeks Goal 3:: Patient will report no more than 2/10 pain in the shoulder for 1 week Goal Time Frame: 4-6 Weeks - Rehabilitation Potential Physical Therapy Diagnosis: Patient presents with hypomobility- she has decreased ROM, strength and muscular endurance leading to poor posture and increased pain with ADL's. Rehabilitation Potential: Fair - Anticipated Interventions Patient/Client Instruction: Educate patient on: Benefits of Fitness Program Therapeutic Exercise to Include: Strength training, Endurance training, Body mechanics, Postural training, Neuromotor development, Dynamic Lumbar Stabilization, Scapular Strength/Stabilization For the Purpose of:: To improve muscle performance and motor function TENS: Yes Cryotherapy (ice pack, ice massage): Yes Thermo therapy (hot pack): Yes Ultrasound (thermal/non thermal): Yes For the Purpose of:: To decrease pain Thank you for the opportunity to evaluate your patient. For Medicare and Medicare HMO plans, please review the plan of care and approve it. It will need to be FAXED BACK to us at [phone] for Medicare purposes. For Medicare only, by signing this I certify the plan of care. Please let me know if there are questions or concerns regarding this plan of care. Physician Signature: Date:
--- NOTE | 2020-03-07 08:36 | HP.PTDCSUM_ITS ---
It has been my pleasure to treat FROY PITTMAN referred by Dr. Luis Kelley MD, with the diagnosis of Left Shoulder Pain for a total of 7 visit(s). Discharge Date: Please see the following information for a summary of their discharge status. Subjective: Pt reports that she is able to sleep better now. Pt reports no pain. Pt reports 90%- not 100% when she is doing such as moving her arm in wrong direction. Left Shoulder Pain Intensity (Out of 10): 0 % Improvement: 90 Objective/Function: Posture: RS, FH corrections able to maintain. Palpation: denies pain Strength: shoulder/elbow:WFL in all planes ROM: shoulder/elbow: WFL in all planes Special Test: Empty Can/Full Can (-), Impingement Chapis Ross (-) Goal 1:: Patient will be I with HEP and progression Goal Progress: Goal Met Goal 2:: Patient will maintain proper posture t/o tx session to demo increased scap s/s Goal Progress: Goal Met Goal 3:: Patient will report no more than 2/10 pain in the shoulder for 1 week Goal Progress: Goal Met Plan: Patient to continue with HEP in order to promote I functional moblity task s and ADLs, will discharge at this time d/t improvement in functional mobility and subjective % improvement. Encouraged patient to call if questions or concerns. If there are questions or concerns regarding this patient's physical therapy, please feel free to call me at [phone]. Thank you for the referral of this patient. Sincerely, Lorraine Smith DPT
== END 2020-03-07 19:00 | disposition home or self-care (01) ==
LOC: PT 08:00
PROVIDERS: PCP Family Medicine; Referring Provider Orthopaedic Surgery; Visit Provider Orthopaedic Surgery
DX: M75.112 Incomplete rotator cuff tear or rupture of left shoulder, not specified as traumatic (principal)
CPT/HCPCS: 97110; 97161; 97164

== ENCOUNTER 2020-04-06 15:47 | Emergency (ER) | payer OTHER, SELFPAY ==
[2018-09-23 20:05] VITALS: BMI 24.5
[2020-04-06 15:49] VITALS: BP 142/90; PULSE 95; RESP 14; TEMP 36.8; O2SAT 99; BMI 25.3
[2020-04-06 15:52] VITALS: BP 142/90; PULSE 92; RESP 15; O2SAT 98
--- NOTE | 2020-04-06 16:15 | EKG12_ITS ---
Test Reason : CP Blood Pressure : / mmHG Vent. Rate : 094 BPM Atrial Rate : 094 BPM P-R Int : 118 ms QRS Dur : 086 ms QT Int : 360 ms P-R-T Axes : 043 056 058 degrees QTc Int : 450 ms Sinus rhythm with occasional Premature ventricular complexes Otherwise normal ECG Confirmed by ANA SIBLEY, ANTHONY ([id number]), news editor ALLI EDUARDO ([id number]) on 04/09/2020 10:10:30 AM Referred By: WILI Confirmed By:ANTHONY PEREZ MD
--- NOTE | 2020-04-06 16:16 | ED.VISSUMM ---
- ER Visit Summary Date of Service: 04/06/20 Chief Complaint: Chest pain History of Present Illness: The patient is a 64 F who presents with chest pain that began last night. Patient states the pain began after she felt a pop in her substernal area. Patient states today the pain is over the left chest area. Patient describes the pain as throbbing. Patient states it is worse with deep breathing and certain movements. Patient states the pain improves whenever she remains still. Patient admits to some mild lightheadedness. Patient denies any nausea or vomiting. Patient denies any diaphoresis. Patient denies any shortness of breath or cough. Patient denies any palpitations. Patient also admits to some mild pain in her posterior left thigh. Patient denies any swelling of her left lower extremity. Patient does have a history of hypertension, diabetes, hypercholesterolemia, and Dulce Maria-Danlos syndrome. Patient also has a history of ductal carcinoma in situ of the left breast. Physical Examination: Vital signs are stable. Patient is afebrile. Patient is in no acute distress. Oral mucosa is pink and moist. Neck is supple. Trachea is midline. There is no JVD noted. Heart was regular rate and rhythm. Lungs are clear and equal bilaterally. There is some tenderness over the left lateral chest wall. There is no bony crepitance or step-off. Abdomen is soft. Bowel sounds are normal. There is no tenderness. There is no rebound or guarding noted. Skin is warm dry. Cranial nerves II through XII are intact. There are no focal motor or sensory deficits noted. Extremities are intact. There is no calf tenderness or edema. Test Results: EKG was obtained. On my interpretation, there is a normal sinus rhythm with a rate of 94. There is an occasional PAC noted. There are no acute ST or T wave changes. CT interval, QRS interval, and QT interval were within normal limits. [place] was normal. Portable 1 view chest x-ray was obtained. On my interpretation, lung barnes are clear. There is normal cardiac silhouette. Bony thorax is normal. There is no acute process noted. Radiologist also interpreted the x-ray and agrees. CBC, basic metabolic profile, troponin, and D-dimer were obtained and were within normal limits. Emergency Department Course and Treatment: Patient was given aspirin here. Patient was advised of her findings. Patient has a HEART score of 3. Patient was advised that this is low risk for acute cardiac event. Patient was instructed to follow-up with her primary care physician in 5 to 7 days. Patient was given a prescription for ibuprofen to take for pain. Patient was instructed to return if worse in any way. Patient understood and was agreeable with the plan. All questions were answered. Disposition: Discharge home Impression: Chest pain of uncertain etiology This note was generated with ZenoLink dictation software. It may contain incorrect words, spelling, and punctuation that were not noted in review of the chart prior to signing ED Disposition - Plan for ED Patient: Disposition: Home or Assisted Living Diagnosis: Chest pain of uncertain etiology Instructions: ED Chest Pain, Uncertain Cause Prescriptions: Ibuprofen [Motrin] 800 mg PO TID PRN PRN #20 tab PRN Reason: Pain Score 1-10 Transmission Status: Pending to [facility] Referrals: Manny Pickering MD [Primary Care Provider] - 5-7 Days
[2020-04-06] MEDS: Aspirin 81 MG TAB.CHEW 324 MG PO (16:19)
--- NOTE | 2020-04-06 16:32 | RAD_ITS ---
STUDY: X-RAY CHEST REASON FOR EXAM: Female, 64 years old. chest pain TECHNIQUE: Single AP portable view of the chest. COMPARISON: 09/23/2018. FINDINGS: Elevated left hemidiaphragm, less than prior study. Otherwise normal lung volumes. No infiltrates or effusions. Normal size heart. Normal mediastinum and allie. Normal visualized pulmonary arteries. Normal visualized aortic arch and descending thoracic aorta. Normal visualized thoracic spine. Since prior study there is a new fracture of the right seventh rib. There is no demonstrated abnormality of the visualized soft tissue structures of the upper abdomen. RAD/Chest 1 View (Portable) IMPRESSION: Elevated left hemidiaphragm but better than prior study. No definite acute chest disease. Electronically Signed: Jonah Limon MD at 16:52 EST , Service support ,
[2020-04-06 16:52] LABS: Absolute Lymphocyte Count 2.33 X10^3/uL (0.83-4.51); Absolute Neutrophil Count 5.7 X10^3/uL (2.0-7.7); Basophil# 0.05 X10^3/uL; Basophil% 0.6 % (0-1); Eosinophil# 0.11 X10^3/uL; Eosinophils% 1.2 % (0-5); Hematocrit 41.4 % (37-47); Hemoglobin 13.1 g/dL (12.0-15.0); Lymphocyte # 2.33 X10^3/ul (4.0); Lymphocyte % 25.9 % (19-41); Mean Corp Hgb Conc 31.6 g/dL (32-36); Mean Corpuscular Hgb 28.9 pg (27.0-32.0); Mean Corpuscular Volume 91.4 fL (81-99); Mean Platelet Vol. 10.5 fl (6.2-12.0); Monocyte# 0.75 X10^3/uL; Monocyte% 8.3 % (0-10); NRBC Flagged by Analyzer 0 % (0-5); Neutrophil # 5.72 X10^3/uL (2.7-7.7); Neutrophil % 63.6 % (47-70); Platelet Count 315 K/mm3 (150-450); RBC Distribution Width CV 14.3 % (11.6-14.6); RBC Distribution Width SD 47.9 fl (35.1-43.9); Red Blood Count 4.53 M/mm3 (4.2-5.4)
[2020-04-06 16:59] LABS: Anion Gap 8 (5-15); BUN 18 mg/dL (7-18); BUN/Creat Ratio 20.4 RATIO (10-20); Calcium,Total 9.4 mg/dL (8.5-10.1); Chloride 109 mmol/L (98-107); Creatinine, Serum 0.88 mg/dL (0.55-1.02); EST Glomerular Filtration Rate 69 mL/min (>60); Est Glom Filt Rate - Afr Amer 83 mL/min (>60); Estimated Creatinine Clearance 53.43 ml/min; Glucose 104 mg/dL (74-106); Potassium 3.8 mmol/L (3.5-5.1); Sodium Level 141 mmol/L (136-145)
[2020-04-06 18:08] LABS: D-Dimer Quantitative (DVT/PE) <= 0.27 FEU/ug/m (0.27-0.49)
[2020-04-06 18:49] VITALS: BP 124/78; PULSE 90; RESP 14; O2SAT 98
== END 2020-04-06 18:51 | disposition home or self-care (01) ==
PROVIDERS: Emergency Provider Emergency Medicine; PCP Family Medicine
DX: R07.9 Chest pain, unspecified (principal); I10 Essential (primary) hypertension; E11.9 Type 2 diabetes mellitus without complications; E78.00 Pure hypercholesterolemia, unspecified; Z79.82 Long term (current) use of aspirin; Z79.84 Long term (current) use of oral hypoglycemic drugs; Z79.899 Other long term (current) drug therapy
CPT/HCPCS: 71045; 80048; 84484; 85025; 85379; 93005; 99284; A4216

== ENCOUNTER → 2020-06-30 09:54 | Outpatient (CLI) | payer MEDICARE, SELFPAY ==
--- NOTE | 2020-06-30 09:56 | CT_ITS ---
STUDY: CT MAXILLOFACIAL SINUSES REASON FOR EXAM: Female, 65 years old. SINUSITIS RADIATION DOSAGE (If Supplied By Facility): CTDIvol = ( 33.06 ) mGy, DLP = ( 792.53 ) mGycm TECHNIQUE: The patient was scanned in a multi detector CT scanner. High resolution axial imaging was performed without the administration of intravenous contrast material. Sagittal and coronal images were reconstructed. Individualized dose optimization techniques were used for this CT. COMPARISON: None. FINDINGS: FRONTAL SINUSES: Normal aeration, without mucosal inflammatory disease. ETHMOIDAL SINUSES: Normal aeration, without mucosal inflammatory disease. MAXILLARY SINUSES: Very small mucosal retention cyst of the right anterior maxillary sinus. SPHENOIDAL SINUSES: Normal aeration, without mucosal inflammatory disease. [place] air cells noted. There is patency of the bilateral maxillary infundibuli with normal uncinate processes, ethmoid bullae, and hiatus semilunaris. Normal bilateral middle turbinates. Normal bilateral inferior turbinates. Normal midline nasal septum. There is patency of the bilateral nasal airways. The visualized osseous structures are normal. The visualized bilateral orbital contents are normal. CT/Sinus/Facial Bone IMPRESSION: No sinonasal mass or air-fluid levels. Electronically Signed: Matteo Mayen MD ([place]) at 15:45 EDT , Service support ,
== END ==
PROVIDERS: PCP Student in an Organized Health Care Education/Training Program; Referring Provider Otolaryngology; Visit Provider Otolaryngology
DX: J32.9 Chronic sinusitis, unspecified (principal)
CPT/HCPCS: 70486

== ENCOUNTER 2020-12-07 08:30 | Outpatient (RCR) | payer MEDICARE, SELFPAY ==
--- NOTE | 2020-10-01 14:23 | HP.PTEVAL_ITS ---
Patient's Visit Information FROY PITTMAN is a 65 year old F referred to Physical Therapy by Dr. Hitesh Maria DO with a diagnosis of Chronic B knee pain. Date of Evaluation: 10/01/20 Physical Therapist: LATOSHA Galarza - Visit Plan Frequency: 2x /Week Duration: 6 Weeks Plan: 2X/ week for B hip and knee strengthening, light neutral spine core stability, gait training to avoid hyperextension, stair negotiation, with HEP. HEP: HEP: SLR, Glut sets, and X 10 Bridges - Subjective Pt reports that her knees do not really hurt they just like to bend backwards... it is usually the R is worse than the L one. She has not done any exercises for her legs in a long time. This has been going on for about 1.5 years. She feels that if she exercises too much then she is in worse shape. She has Ehler Danlos Syndrome. No falls. She felt AT made her worse the last time she did them. She does not have a latex allergy. Stairs: sometimes she has not enough strength to get to the next step and she has to pull herself up. She has 3 steps from garage to the house. She feels that her legs are weak. They did x-rays of B knees and it did not show anything. Pt is having hand surgery next week on top of all of this. - Objective Gait: Walks with decrease stride and decrease heel to toe gait pattern. Pt is able to walk on heels and toes (harder to walk on her heels). LE MMT: B hip flex 3+/5, B knee flex and knee ext 3+/5, R hip abd 4/5, and L hip abd 4-/5, Prone hip extension 4-/5 B. Bridges able to go 1/2 normal ROM. R knee AROM: 0-148. L knee AROM: 0-145. good HS length, tight gastro B,. Observeration: L ankle swelling (lymph), No obvious swelling. No pain with palpation - Goals Goal 1:: I HEP Goal Time Frame: 4-6 Weeks Goal 2:: Increase B hip and knee strength by 1/2 muscle grade (at time of the eval: LE MMT: B hip flex 3+/5, B knee flex and knee ext 3+/5, R hip abd 4/5, and L hip abd 4-/5, Prone hip extension 4-/5 B) Goal Time Frame: 4-6 Weeks Goal 3:: Be able to go up and down the stairs recip with 1 hand rail for safety without having to pull self up the stairs using the railing Goal Time Frame: 4-6 Weeks - Rehabilitation Potential Rehabilitation Potential: Good - Anticipated Interventions Patient/Client Instruction: Educate patient on: Condition, Plan of Care For the Purpose of:: To improve nutrient delivery to tissue, To improve muscle performance and motor function, To improve ability to perform ADL's, To increase tolerance to activity/condition/position, To improve performance and indep endence with ADL's, To improve ability of physical actions for home/community/work/leisure, To improve gait and locomotor functions, To reduce risk of recurrence Therapeutic Exercise to Include: Strength training, Balance training, Gait and locomotor training, Neuromotor development, Active ROM For the Purpose of:: To improve muscle performance and motor function, To improve ability to perform ADL's, To increase tolerance to activity/condition/position, To improve gait and locomotor functions, To improve health of tissue Functional Training to Include: Gait training For the Purpose of:: To improve gait and locomotor functions Thank you for the opportunity to evaluate your patient. For Medicare and Medicare HMO plans, please review the plan of care and approve it. It will need to be FAXED BACK to us at [phone] for Medicare purposes. For Medicare only, by signing this I certify the plan of care. Please let me know if there are questions or concerns regarding this plan of care. Physician Signature: Dat e:
--- NOTE | 2020-12-07 08:58 | HP.PTDCSUM ---
It has been my pleasure to treat FROY PITTMAN referred by Dr. Hitesh Maria DO, with the diagnosis of Chronic B knee pain for a total of 9 visit(s). Discharge Date: 12/07/20 Please see the following information for a summary of their discharge status. Subjective: Pt reports that her L knee hurts under the knee today. This weather and her do not agree. Pt feels that she is ready to do her HEP. Her knee has only bent backward once. Pt is now able to get out of the car easier now. right knee Pain Intensity (Out of 10): 7 % Improvement: 95 Objective/Function: LE MMT: B hip flex 4-/5, B knee flex and knee ext 4/5, R hip abd 4/5, and L hip abd 4/5. Stairs: pt is able to go up and down the stairs recip with 1 handrail without having to pull herself up. Goal 1:: I HEP Goal Progress: Goal Met Goal 2:: Increase B hip and knee strength by 1/2 muscle grade (at time of the eval: LE MMT: B hip flex 3+/5, B knee flex and knee ext 3+/5, R hip abd 4/5, and L hip abd 4-/5, Prone hip extension 4-/5 B) Goal Progress: Goal Met Goal 3:: Be able to go up and down the stairs recip with 1 hand rail for safety without having to pull self up the stairs using the railing Goal Progress: Goal Met Plan: DC PT to HEP Discharge Comments: DC PT to HEP If there are questions or concerns regarding this patient's physical therapy, please feel free to call me at [phone]. Thank you for the referral of this patient. Sincerely, Elis Connors, MPT Balance/Gait/Functional tests - Balance/Special Test Scores Lower Extremity Functional Score: 66
== END 2020-12-07 19:00 | disposition home or self-care (01) ==
LOC: PT 08:30
PROVIDERS: PCP Student in an Organized Health Care Education/Training Program; Referring Provider Student in an Organized Health Care Education/Training Program; Visit Provider Student in an Organized Health Care Education/Training Program
DX: M25.561 Pain in right knee (principal); M25.562 Pain in left knee; G89.29 Other chronic pain
CPT/HCPCS: 97110; 97161; 97530

== ENCOUNTER → 2021-02-04 | Outpatient (CLI) | payer MEDICARE, SELFPAY ==
--- NOTE | 2021-02-04 09:00 | MASS_PTH ---
PATIENT: FROY PITTMAN [facility]: [facility] U#:[id number] AGE/SX: 65/F ROOM: RE02/04/[address]: Dr. Howard Martinez MD : 1955 BED: DIS: 02/04/2021 SPEC #: [id number] RECD: 02/04/21 14:54 STATUS: ELVA MAN #: [id number] AMERICO: 02/04/21 09:[address]: Howard Martinez DEPT: SURGICAL PATHOLOGY RECD BY: Isabel Muniz ENTERED: 02/05/21 11:08 SP TYPE: Mass OTHR DR: Dr. Hitesh Maria, DO Tissues: Nose, NOS Procedures: Surgery Specimen Level IV HEADER OPERATION: Right nasal mass PRE-OP DIAGNOSIS: Right nasal mass TISSUE SUBMITTED: Right nasal mass MICROSCOPIC DIAGNOSIS Right nasal mass, biopsy: Squamous epithelium and fragments of fibrinopurulent material. Negative for malignancy. See comment. SJ:melyssa 02/06/2021 COMMENT The specimen predominantly consists of fibrinopurulent material. Scant fragments of squamous epithelium is noted. If there is suspicion of malignancy, re-biopsy of the lesion is suggested if clinically indicated. MICROSCOPIC DESCRIPTION Slides are reviewed. GROSS DESCRIPTION Received in fixative is one container labeled with the patient's name and designated right nasal mass. The specimen consists of two pieces of cotton-white soft tissue measuring in aggregate 1 x 0.3 x 0.1 cm. The specimen is totally submitted in one cassette. / MABEL:melyssa 02/05/21 TC:2 CPT: 00952
== END | disposition home or self-care (01) ==
LOC: LABSPEC 02-05 09:46
PROVIDERS: PCP Student in an Organized Health Care Education/Training Program; Visit Provider Otolaryngology
DX: J34.89 Other specified disorders of nose and nasal sinuses (principal)
CPT/HCPCS: 88305

== ENCOUNTER 2021-03-11 08:00 | Outpatient (RCR) | payer MEDICARE, SELFPAY ==
--- NOTE | 2021-02-12 11:07 | HP.PTEVAL_ITS ---
Patient's Visit Information FROY PITTMAN is a 65 year old F referred to Physical Therapy by HARDIK BUSTOS with a diagnosis of R lumbar radiculitis. Date of Evaluation: 02/12/21 Physical Therapist: Noble Godlberg, STEVET, OCS, CSCS - Visit Plan Frequency: 2x /Week Duration: 4-6 Weeks Plan: 2x/week x 4 weeks for : 1. NS mat core based strength and hip strength. 2. flexion bias L.S ROM and stretching. 3. Progress to HEP. 4. STM as needed. - Subjective I have bone spurs n my back for long time. X ray showed spurs and stenosis. Will have MRI 03/02. Symptoms are pain and locking and stiffness over the low back and into SI joint. It effects lateral R hip and down to knee. Hard to walk up steps due to pain. Feels like she is dragging R foot. has 3 steps to enter house, does them safely but more challenging. LBP gets to 7/10 with walking,moving. Sitting today is 7/10. No leg pain at rest. It gets to 4/10 in R leg. Worse with walking. sleep is interrupted and keeps her awake with pain. Advil or tylenol with aspirin can be helpful with heat. Retired. No regular exercises. Basic ADLs are getting done, cleaning is dependent on hand due to thumb surgery in June. It is more limiting than back. Seeing hand doctor for L hand also. Picking things up off the floor can be challenging. Bending hurts, can do golfers lift. Hobbies include feeding birds, walks at [facility] are limited due to back pain. Hanging and leaning on cart helps her to last longer. - Pain LBP Pain Intensity (Out of 10): 6 Pain Intensity Range: 1, 7 - Objective Walks slowly but i back to Pt [facility] room. Trasnfers bed and chair I but slow. Steps reciprocal with one rail, weak but I. LB AROM ext mod limited with some pain, SB min limited no pain, flexion stiff but no pain. PA pressure hurts upper lumbar area. Sensation LE WNL to gross light touch. reflexes 2/3 patella and achilles. strength hips 3+ B, knee ext 3+, flexion 3+ and ankles 4- B without myotomal abnormalities. - SLR. - slump - Balance/Special Test Scores Functional Gait Assessment Score: 27 % Disability: 10.0000 Oswestry Low Back Score: 19 - Goals Goal 1:: LB AROM full and without pain Goal Time Frame: 4-6 Weeks Goal 2:: Pain 0-2/10 at all times and 75% improved overall. Goal Time Frame: 4-6 Weeks Goal 3:: Pt sleep without interruption from pain Goal Time Frame: 4-6 Weeks Goal 4:: oswestryscore 8 or less Goal Time Frame: 4-6 Weeks Goal 5:: I HEP to limit future problems. Goal Time Frame: 4-6 Weeks - Rehabilitation Potential Physical Therapy Diagnosis: LBP limiting functiona dn effecting sleep Rehabilitation Potential: Fair - Anticipated Interventions Patient/Client Instruction: Educate patient on: Condition, Plan of Care For the Purpose of:: To decrease pain, To increase ROM, To improve muscle performance and motor function, To increase tolerance to activity/condition/position, To improve ability of physical actions for home/community/work/leisure, To improve gait and locomotor functions Therapeutic Exercise to Include: Strength training, Postural training, Flexibilty training, Passive ROM, Active ROM, Dynamic Lumbar Stabilization For the Purpose of:: To decrease pain, To improve nutrient delivery to tissue, To improve muscle performance and motor function Manual Therapy Techniques to Include: Soft tissue mobilization For the Purpose of:: To decrease pain Thank you for the opportunity to evaluate your patient. For Medicare and Medicare HMO plans, please review the plan of care and approve it. It will need to be FAXED BACK to us at [phone] for Medicare purposes. For Medicare only, by signing this I certify the plan of care. Please let me know if there are questions or concerns regarding this plan of care. Physician Signature: Date:
--- NOTE | 2021-02-20 14:26 | HP.PTREVAL_ITS ---
HARDIK BUSTOS, It has been my pleasure to treat FROY PITTMAN over the last 3 visits for R lumbar radiculitis. Please see the progress note below for an update on the physical therapy plan of care! Subjective: Difficulty with reaching toes this morning, feeling tight. Loosened up as the day progressed. Objective/Function: Reported LTR as HEP - agreed she could do this as long as painfulness does not increase. Added to HEP below. Cues for no breath holding with abdominal bracing d/t demo's of this. Able to move into neutral pelvis in supine, however MUCH more difficulty (with awareness) in standing agaisnt gravitational resistance. Often over-correcting and/or demo'ing hyperext of the knees. Cues to engage quad to avoid knee hyperext. Ed. also to avoid excessive ER of RLE with driving. Given as HEP with written descriptions and review of good posture. States she was offered AT and would be willing to try it now. D iscussed with supervising PT this change of POC with PT agreeable. Given pool paperwork and scheduling slip to adjust current scheduled appts. Pt agreeable. Plan Plan: *f/u with new HEP tasks. *Changing POC to aquatics. 2x/week x 4 weeks for : 1. NS mat core based strength and hip strength. 2. flexion bias L.S ROM and stretching. 3. Progress to HEP. 4. STM as needed. Will =do this in the pool due to high grades of pain lately to finsih out this POC, pt agreeable. Balance/Gait/Functional tests - Balance/Special Test Scores Functional Gait Assessment Score: 27 % Disability: 10.0000 Oswestry Low Back Score: 19 Goals Goal 1:: LB AROM full and without pain Goal Time Frame: 4-6 Weeks Goal 2:: Pain 0-2/10 at all times and 75% improved overall. Goal Time Frame: 4-6 Weeks Goal 3:: Pt sleep without interruption from pain Goal Time Frame: 4-6 Weeks Goal 4:: oswestryscore 8 or less Goal Time Frame: 4-6 Weeks Goal 5:: I HEP to limit future problems. Goal Time Frame: 4-6 Weeks Anticipated Interventions Patient/Client Instruction: Educate patient on: Condition, Plan of Care For the Purpose of:: To decrease pain, To increase ROM, To improve muscle performance and motor function, To increase tolerance to activity/condition/position, To improve ability of physical actions for home/community/work/leisure, To improve gait and locomotor functions Therapeutic Exercise to Include: Strength training, Postural training, Flexibilty training, Passive ROM, Active ROM, Dynamic Lumbar Stabilization For the Purpose of:: To decrease pain, To improve nutrient delivery to tissue, To improve muscle performance and motor function Manual Therapy Techniques to Include: Soft tissue mobilization For the Purpose of:: To decrease pain Please do not hesitate to contact me at [phone] by phone or if you have questions or concerns regarding this new plan of care! Sincerely, Noble Goldberg, DPT, OCS, CSCS
--- NOTE | 2021-03-11 08:31 | HP.PTDCSUM ---
It has been my pleasure to treat FROY PITTMAN referred by HARDIK BUSTOS, with the diagnosis of R lumbar radiculitis for a total of 7 visit(s). Discharge Date: 03/11/21 Please see the following information for a summary of their discharge status. Subjective: Walks hunched over the day after therapy. Pain is 7/10 on daily basis. Worse in am until muscle relaxers. Water treatment worked better than land. Less pain for the rest of that day, next day is hard to stand up tall. Sleep is not great but never is. easier to squat down at times but pain intensity not much different. LBP Pain Intensity (Out of 10): 6 RLE Pain Intensity (Out of 10): 2 LLE Pain Intensity (Out of 10): 6 % Improvement: 10 Objective/Function: Slow and painful transfers from chair. AROM ext max limited and painful SI area, flexion min limited, R SB painful and slow, L SB OK. Walks I and safe. Not improving painwise how she had hoped. Goal 1:: LB AROM full and without pain Goal Progress: Progressing Goal 2:: Pain 0-2/10 at all times and 75% improved overall. Goal Progress: Not Progressing Goal 3:: Pt sleep without interruption from pain Goal Progress: Not Progressing Goal 4:: oswestryscore 8 or less Goal Progress: Not Progressing Goal 5:: I HEP to limit future problems. Goal Progress: too stiff. Plan: d/c, pt to contact doctor regarding continued pain and other options. She thinks injection is the next step which may be appropriate, would benefit form continued PT for general ex once doctor follow up is done. Discharge Comments: Pt to contact doctor to schedule f/u due to continued pain. If there are questions or concerns regarding this patient's physical therapy, please feel free to call me at [phone]. Thank you for the referral of this patient. Sincerely, Noble Goldberg, DPT, OCS, CSCS Balance/Gait/Functional tests - Balance/Special Test Scores Functional Gait Assessment Score: 27 % Disability: 10.0000 Oswestry Low Back Score: 20
== END 2021-03-11 19:00 | disposition home or self-care (01) ==
LOC: PT 08:00
PROVIDERS: PCP Student in an Organized Health Care Education/Training Program
DX: M54.16 Radiculopathy, lumbar region (principal); M48.062 Spinal stenosis, lumbar region with neurogenic claudication; M47.816 Spondylosis without myelopathy or radiculopathy, lumbar region; M79.18 Myalgia, other site
CPT/HCPCS: 97110; 97113; 97161; 97164; 97530

== ENCOUNTER 2021-06-18 11:06 | Day surgery (SDC) | payer MEDICARE, SELFPAY ==
[2021-06-18] MEDS: Lactated Ringers 1,000 ML 15 ML IV (11:30)
[2021-06-18 12:05] VITALS: BP 152/84; PULSE 76; RESP 18; TEMP 36.7; O2SAT 95; BMI 24.3
[2021-06-18 12:08] LABS: Anion Gap 9 (5-15); BUN 12 mg/dL (7-18); BUN/Creat Ratio 19.8 RATIO (10-20); Calcium,Total 9.1 mg/dL (8.5-10.1); Chloride 109 mmol/L (98-107); EST Glomerular Filtration Rate 105 mL/min (>60); Est Glom Filt Rate - Afr Amer 127 mL/min (>60); Glucose 96 mg/dL (74-106); Potassium 3.7 mmol/L (3.5-5.1); Sodium Level 143 mmol/L (136-145)
--- NOTE | 2021-06-18 13:00 | MASS_PTH ---
PATIENT: FROY PITTMAN LOC: [facility] [place] U#:[id number] AGE/SX: 66/F ROOM: RE06/18/[address]: Dr. Howard Martinez MD : 1955 BED: DIS: 06/18/2021 SPEC #: [id number] RECD: 06/18/21 14:42 STATUS: ELVA MAN #: [id number] AMERICO: 06/18/21 13:[address]: Howard Martinez DEPT: SURGICAL PATHOLOGY RECD BY: Isabel Muniz ENTERED: 06/19/21 09:52 SP TYPE: Mass OTHR DR: Dr. Hitesh Maria DO Tissues: NASAL POLYP Procedures: Special Stain Group I Surgery Specimen Level IV GMS Stain (control) HEADER OPERATION: Intranasal lesion excision PRE-OP DIAGNOSIS: Right intranasal mass TISSUE SUBMITTED: Right intranasal mass MICROSCOPIC DIAGNOSIS Right intranasal mass, biopsy: Benign squamous mucosal polyp, inflamed. See comment. AM:melyssa 06/20/2021 COMMENT GMS stain with matched control was used in the evaluation of this case. MICROSCOPIC DESCRIPTION Slides are reviewed. GROSS DESCRIPTION Received in fixative is one container labeled with the patient's name and designated right intranasal mass. The specimen consists of two pieces of cotton-white to light brown soft tissue measuring in aggregate 0.9 x 0.6 x 0.1 cm. The entire specimen is submitted in one cassette. / SJ:melyssa 06/19/2021 TC:1 CPT: 52978, 83677
--- NOTE | 2021-06-18 13:22 | PCM.DC ---
Discharge Instructions Diet Discharge Diet: No restrictions Activity Discharge Activity: Return to Normal Activity Dressing / Incision Call your doctor if your incision/area has: Sudden Increased Bleeding Follow Up Care Please Follow Up With: shruthi When: 3 weeks Test Results: Test results from this visit will be discussed in further detail at your follow-up appointment, if applicable. Discharge Plan Admission Attending Provider: Manny Martinez Primary Care Provider: Hitesh Maria Discharge Orders/Prescriptions Prescriptions: No Action atorvastatin 20 MG tablet 20 mg PO QHS RF: 0 montelukast 10 MG tablet 10 mg PO DAILY RF: 0 irbesartan [Avapro] 150 MG tablet 150 mg PO DAILY RF: 0 cetirizine 10 MG tablet 10 mg PO DAILY RF: 0 tolterodine 4 MG capsule,extended release 24hr 4 mg PO DAILY RF: 0 meloxicam 15 MG tablet 15 mg PO DAILY RF: 0 aspirin 81 MG tablet,delayed release (DR/EC) 81 mg PO DAILY RF: 0 gabapentin 300 MG capsule 300 mg PO BID RF: 0 cholecalciferol (vitamin D3) 1,000 UNIT tablet 1,000 unit PO DAILY RF: 0 zxptmlwh-qxj-ygic-FA-lutein 1 EACH tablet 1 tab PO DAILY RF: 0 albuterol sulfate 1 INHALER inhaler 1 - 2 puff inhalation Q4H PRN PRN (Reason: Shortness Of Breath) Qty: 1 RF: 0 metformin 500 MG tablet 500 mg PO DAILY Qty: 0 RF: 0 metaxalone 800 MG tablet 0.5 - 1 tab PO TID RF: 0 fvotegxcncgnvl-rulwupylha-bfzg 2 GM cream in packet 2 gm TP TID RF: 0 ibuprofen 800 MG tablet 800 mg PO TID PRN PRN (Reason: Pain Score 1-10) Qty: 20 RF: 0 latanoprost 0.005 % drops 1 drp EACH EYE DAILY RF: 0 magnesium 500 mg Tablet 15 mg PO QHS RF: 0 carboxymethylcellulose sodium [Refresh] 1 % Drops, Liquid Gel 2 drp EACH EYE BID PRN (Reason: Dry Eyes) RF: 0 Ivkouwgr-Vjlks-HFA(with boron) 500-416.6-20 mg Tablet 1 tab PO DAILY RF: 0 Disposition Discharge Orders: Discharge Patient (Routine); Ordered 06/18/21 Ordered By: Dr. Manny Martinez
--- NOTE | 2021-06-18 13:40 | PCM.OPRPT ---
Problems Associated Problem List Diagnoses (1) Mass of nasal sinus: Report of Operation Date of Procedure: 06/18/21 Pre-Operative Diagnosis: right intranasal mass Post-Operative Diagnosis: right intranasal mass Surgery/Procedure Performed:: 1. nasal endoscopy 2. excision intranasal mass 3. submucous resection inferior turbinate, right Surgeon: Manny Martinez Type of Anesthesia: General Description of Procedure: on the day of the procedure, after appropriate informed consent was obtained, the patient was brought to the operating room and placed in supine position on the operating table. she was placed under general intravenous anesthesia by the anesthesiologist. a LMA was placed. the zero degree endoscope was used to evaluate the right nasal cavity. a 1cm mass of the right inferior turbinate was visualized. this was excised with a 15 blade and a william elevator. hemostasis was achieved with suction cautery. an incision was made at the head of the inferior turbinate. this was dissected submucosally with the william elevator. it was reduced submucosally with the suction electrocautery and bone was removed with a ortiz cut. it was outfractured with a boies elevator. a merocel was placed. she was awoken from anesthesia and transferred to the PACU in stable condition.
[2021-06-18 13:56] LABS: Bedside Glucose 83 mg/dL (74-106)
[2021-06-18] MEDS: Lidocaine 1% /Epi 1:100 (20ml) 20 ML Vial (14:02)
[2021-06-18 14:24] VITALS: BP 119/65; PULSE 89; RESP 14; TEMP 36.9; O2SAT 98
[2021-06-18 14:30] VITALS: BP 110/74; PULSE 80; RESP 14; O2SAT 94
[2021-06-18 14:45] VITALS: BP 116/74; PULSE 73; RESP 16; O2SAT 100
[2021-06-18 15:04] VITALS: BP 123/69; PULSE 70; RESP 16; TEMP 36.5; O2SAT 97
[2021-06-18 15:42] VITALS: BP 123/69; BP 132/71; PULSE 76; RESP 16; TEMP 36.4; O2SAT 98
== END 2021-06-18 15:55 | disposition home or self-care (01) ==
LOC: SDC 11:07 → AC 11:09
PROVIDERS: PCP Student in an Organized Health Care Education/Training Program; Referring Provider Otolaryngology; Visit Provider Otolaryngology
PROC: (CPT 31237; principal; 2021-06-18 12:50)
DX: D14.0 Benign neoplasm of middle ear, nasal cavity and accessory sinuses (principal); E11.9 Type 2 diabetes mellitus without complications; I10 Essential (primary) hypertension; E78.00 Pure hypercholesterolemia, unspecified; E07.9 Disorder of thyroid, unspecified; J45.909 Unspecified asthma, uncomplicated; M19.90 Unspecified osteoarthritis, unspecified site; Z79.82 Long term (current) use of aspirin; Z79.84 Long term (current) use of oral hypoglycemic drugs; Z79.899 Other long term (current) drug therapy
CPT/HCPCS: 31237; 30140; 00160; 80048; 82962; 88304; 88305; 88312; J7120; J2405

== ENCOUNTER 2021-12-02 15:30 | Outpatient (RCR) | payer MEDICARE, SELFPAY ==
--- NOTE | 2021-09-11 13:41 | HP.PTEVAL_ITS ---
Patient's Visit Information FROY PITTMAN is a 66 year old F referred to Physical Therapy by Dr. Luis Kelley MD with a diagnosis of Left SAD and GH Debridement August 29, 2021. Date of Evaluation: 09/11/21 Physical Therapist: Lorraine Smith DPT - Visit Plan Frequency: 2-3x /Week Duration: 4 Weeks Plan: Phase 1 and Phase 2- Follow Protocol in Folder. HEP Given IE: Supine cane flexion, seated abduction, elbow flexion/extn, postural awareness. - Subjective Patient reports that she had left shoulder surgery [address] Kelley- SAD and GH Debridement. Headed home after surgery- right hand dominate. She was in a sling until the block wore off but then was allowed to remove. Saw the PA on Thursday- and they were happy with how everything was going. She feels that its not catching anymore but its still pretty sore. Pain is located in the deltoid and along the AC joint. Describes the pain as achy and sometimes she has muscle spasms. Worst: 8/10 Agg: rolling over on it, overuse. Best: 0/10 Eases: ice, pain medication and rest. No N/T in the fingers. No PEREZ, blurred vision, dizziness. No x-ray or MRI since surgery. Goes back to the surgeon Oct 04, 2021. Sleep: wakes her up when she rolls over on it. She reports that she is normally pretty active- no specific exercise program. PMHx/Meds: no changes since 06/2021 in chart. - Objective Posture: FH, RS can correct but does not maintain- mild guarding of the left UE. Palpation: tender along bicipital groove and AC joint. Observation: bruising along deltoid and biceps. ROM: Cervical: WNL, Shoulder: AROM: Flexion: 80 degrees Abd: 50 degrees, IR: belt line: ER: 50 degrees. PROM: Flexion: 130 degrees, Abd: 100 degrees, IR: to belly ER: 60 degrees Elbow: WFL discomfort at end range, Wrist: WNL. Strength: Wrist: 4+/5, Elbow: 4-/5, Shoulder: not tested due to protocol Scap: fair minus - Balance/Special Test Scores Quick DASH Score: 56.8175 - Goals Goal 1:: Patient will be I with HEP and progression Goal Time Frame: 4-6 Weeks Goal 2:: Patient will demo full AROM without pain for 1 week Goal Time Frame: 4-6 Weeks Goal 3:: Patient will maintain proper posture t/o tx session to demo increased scap s/s. Goal Time Frame: 4-6 Weeks Goal 4:: Patient will report 80% improvement. - Rehabilitation Potential Physical Therapy Diagnosis: Patient presents with hypomobility s/p shoulder surgery- she has decreased UE ROM, scapular strength/stabilization and muscular endurance leading to poor posture and increased pain with ADL's. Rehabilitation Potential: Good - Anticipated Interventions Patient/Client Instruction: Educate patient on: Benefits of Fitness Program Therapeutic Exercise to Include: Strength training, Endurance training, Body mechanics, Postural training, Neuromotor development, Passive ROM, Active ROM, Scapular Strength/Stabilization Cryotherapy (ice pack, ice massage): Yes Thermo therapy (hot pack): Yes Ultrasound (thermal/non thermal): No Thank you for the opportunity to evaluate your patient. For Medicare and Medicare HMO plans, please review the plan of care and approve it. It will need to be FAXED BACK to us at [phone] for Medicare purposes. For Medicare only, by signing this I certify the plan of care. Please let me know if there are questions or concerns regarding this plan of care. Physician Signature: Date:
--- NOTE | 2021-10-11 10:12 | HP.PTREVAL ---
Dr. Luis Kelley MD, It has been my pleasure to treat FROY PITTMAN over the last 12 visits for Left SAD and GH Debridement August 29, 2021. Please see the progress note below for an update on the physical therapy plan of care! Subjective: Pt. reports overall doing much better. She reports being 60% better. She still has some soreness with reaching over head and with reaching her night stand at home. She has started phase III and has been a little bit sore with this transition. Objective/Function: PROM: flexion 165deg, abd 165deg, ER at 9d0eg 80deg, IR at 90deg 30deg. Mild increase NW at end ranges motion. AROM: flexion 150deg, abd 145dge mild increase NW. functional ER C4, functional IR T10. MMT: L shoulder: flexion 4/5 mild increase NW, abd 4/5 mild increase NW. ext 5/5 NE, ER 4/5 mild increase NW, IR 4+/5 NE. Pt. reports overall doing better. She is a little bit more sore but is just started phase III. Cont. to progress with this phase as tolerated. Cont. to build deltoid, RTC, scapular and periscapular strengthening. Plan Plan: Pt. is doing better with all of her ROM and strength. She is still weak and needs to progress this for increased function. Continue to make sure ROM is maintained. Balance/Gait/Functional tests - Balance/Special Test Scores Quick DASH Score: 36.3625 Goals Goal 1:: Patient will be I with HEP and progression Goal Time Frame: 4-6 Weeks Goal Progress: Progressing Goal 2:: Patient will demo full AROM without pain for 1 week Goal Time Frame: 4-6 Weeks Goal Progress: Progressing Goal 3:: Patient will maintain proper posture t/o tx session to demo increased scap s/s. Goal Time Frame: 4-6 Weeks Goal Progress: Progressing Goal 4:: Patient will report 80% improvement. Goal Progress: Progressing Goal 5:: LTG: Pt. to have increased L shoulder strength to at least 4+/5 throughout RTC and scapular musculature. Goal Time Frame: 4-6 Weeks Goal Progress: Progressing Anticipated Interventions Patient/Client Instruction: Educate patient on: Benefits of Fitness Program Therapeutic Exercise to Include: Strength training, Endurance training, Body mechanics, Postural training, Neuromotor development, Passive ROM, Active ROM, Scapular Strength/Stabilization Cryotherapy (ice pack, ice massage): Yes Thermo therapy (hot pack): Yes Ultrasound (thermal/non thermal): No Please do not hesitate to contact me at [phone] by phone or if you have questions or concerns regarding this new plan of care! Sincerely, STEVE PonceT
--- NOTE | 2021-11-07 08:57 | HP.PTREVAL ---
Dr. Luis Kelley MD, It has been my pleasure to treat FROY PITTMAN over the last 20 visits for Left SAD and GH Debridement August 29, 2021. Please see the progress note below for an update on the physical therapy plan of care! Subjective: Patient reports that she has some soreness in the shoulder but it does everything its suppose to do. Sometimes she has issues reaching to her upper back. She feels that she would like to try to do her own thing while she is on vacation and diya call when you get back. Objective/Function: Posture: fair throughout. Gait: no deviation noted good arm swing and trunk rotation. ROM: WNL in all ranges AROM. Strength: 4+/5 throughout Plan Plan: Hold- 3 weeks while patient is on vacation- progress as tolerated Balance/Gait/Functional tests - Balance/Special Test Scores Quick DASH Score: 27.2721 Goals Goal 1:: Patient will be I with HEP and progression Goal Time Frame: 4-6 Weeks Goal Progress: Progressing Goal 2:: Patient will demo full AROM without pain for 1 week Goal Time Frame: 4-6 Weeks Goal Progress: Progressing Goal 3:: Patient will maintain proper posture t/o tx session to demo increased scap s/s. Goal Time Frame: 4-6 Weeks Goal Progress: Progressing Goal 4:: Patient will report 80% improvement. Goal Progress: Progressing Goal 5:: LTG: Pt. to have increased L shoulder strength to at least 4+/5 throughout RTC and scapular musculature. Goal Time Frame: 4-6 Weeks Goal Progress: Progressing Anticipated Interventions Patient/Client Instruction: Educate patient on: Benefits of Fitness Program Therapeutic Exercise to Include: Strength training, Endurance training, Body mechanics, Postural training, Neuromotor development, Passive ROM, Active ROM, Scapular Strength/Stabilization Cryotherapy (ice pack, ice massage): Yes Thermo therapy (hot pack): Yes Ultrasound (thermal/non thermal): No Please do not hesitate to contact me at [phone] by phone or if you have questions or concerns regarding this new plan of care! Sincerely, Lorraine Smith DPT
== END 2021-12-02 19:00 | disposition home or self-care (01) ==
LOC: PT 15:30
PROVIDERS: PCP Student in an Organized Health Care Education/Training Program; Referring Provider Orthopaedic Surgery; Visit Provider Orthopaedic Surgery
DX: M19.012 Primary osteoarthritis, left shoulder (principal)
CPT/HCPCS: 97110; 97140; 97162; 97164

== ENCOUNTER 2022-02-04 11:00 | Outpatient (RCR) | payer MEDICARE, SELFPAY ==
--- NOTE | 2021-12-04 16:23 | HP.PTEVAL_ITS ---
Patient's Visit Information FROY PITTMAN is a 66 year old F referred to Physical Therapy by Dr. Hitesh Maria DO with a diagnosis of Lumbar Pain. Date of Evaluation: 12/04/21 Physical Therapist: Lorraine Smith DPT - Visit Plan Frequency: 2x /Week Duration: 4 Weeks Plan: Aquatic PT- focus on LE and core strength/stabilzation - Subjective Patient reports that she has SI pain that then radiates to the lateral left hip and knee which has been going on for a few months- insidious onset. She is really stiff in the AM and feels like she can't get all the way straight up and down. Describes the pain as more achy pain. Worst: 6-7/10 Agg: getting up in the AM, picking something up off the floor, or getting up from sitting. Best: 0/10 Eases: muscle relaxers for her back. She has been taking muscle relaxers for her back on/off for years. Her last set of injections in her lumbar spine were in Mar- she is having SI injections in Jan or February. Had an MRI (DDD throughout with L4-L5 severe) and x-rays. Sleep: disturbed- kwan splint pain- and sometimes she will stretch too far- comes from her hypermobility- side sleeper or stomach. No N/T in the toes. Does have some feelings if her knees don't line up. She has a hard time lifting her right leg up to put her pants on. Hates to put her socks and shoes on due to pain. PMHx/Meds: no change since June - Objective Posture: FH, RS increased kyphosis- can correct with verbal cues but does not maintain. Gait: no deviation noted- good arm swing and trunk rotation. ROM: Lumbar: left side bending is painful and diminished by 50% all other motions WFL- pain with forward flexion. Strength: Core: fair minus, Right: Hip: 4/5, Knee: 4+/5, Ankle: 5/5. Left: Hip: 4-/5, Knee: 4/5, Ankle: 4+/5. Flex: hypermobility throughout. Sensation: WNL. Reflex: WNL - Special Tests L Hip Scour: Negative L Hip DENG - Intraarticular Pathology: Negative L Hip FADDIR - Labrum: Negative L Hip Trendelenberg - Glut Medius: Negative - Goals Goal 1:: Patient will be I with HEP and progression Goal Time Frame: 4-6 Weeks Goal 2:: Patient will maintain proper posture t/o tx session to demo increased core s/s Goal Time Frame: 4-6 Weeks Goal 3:: Patient will report 80% improvement - Rehabilitation Potential Physical Therapy Diagnosis: Patient presents with hypomobility- she has decreased LE and core strength/stabilization and muscular endurance leading to poor posture and increased pain with ADL's. Rehabilitation Potential: Fair - Anticipated Interventions Patient/Client Instruction: Educate patient on: Benefits of Fitness Program Therapeutic Exercise to Include: Strength training, Endurance training, Balance training, Coordination, Agility training, Body mechanics, Postural training, Flexibilty training, Gait and locomotor training, Neuromotor development, In an aquatic setting, Dynamic Lumbar Stabilization, Scapular Strength/Stabilization For the Purpose of:: To improve muscle performance and motor function Thank you for the opportunity to evaluate your patient. For Medicare and Medicare HMO plans, please review the plan of care and approve it. It will need to be FAXED BACK to us at [phone] for Medicare purposes. For Medicare only, by signing this I certify the plan of care. Please let me know if there are questions or concerns regarding this plan of care. Physician Signature: Date:
--- NOTE | 2021-12-30 13:52 | HP.PTREVAL ---
Dr. Hitesh Maria, DO, It has been my pleasure to treat FROY PITTMAN over the last 8 visits for Lumbar Pain. Please see the progress note below for an update on the physical therapy plan of care! Subjective: Patient reports that she is better- she is still a little stiff and sore- but she feels its a good stiff. She gets a little bit more house work done- she is able to get her shoes and socks on- she is now sleeping better. She feels that continuation of PT is a good idea and likes the pool. Objective/Function: Posture: FH, RS increased kyphosis- can correct with verbal cues but does not maintain. Gait: no deviation noted- good arm swing and trunk rotation. ROM: Lumbar: WFL without pain Strength: Core: fair, Right: Hip: 4/5, Knee: 4+/5, Ankle: 5/5. Left: Hip: 4/5, Knee: 4+/5, Ankle: 4+/5. Flex: hypermobility throughout. Sensation: WNL. Reflex: WNL. - Special Tests. L Hip Scour: Negative. L Hip DENG - Intraarticular Pathology: Negative. L Hip FADDIR - Labrum: Negative. L Hip Trendelenberg - Glut Medius: Negative Plan Plan: 12/30/21: Continued aquatics 2x 4 weeks for progression of core strength/stabilization. Aquatic PT- focus on LE and core strength/stabilization Balance/Gait/Functional tests - Balance/Special Test Scores Oswestry Low Back Score: 10 Goals Goal 1:: Patient will be I with HEP and progression Goal Time Frame: 4-6 Weeks Goal Progress: Progressing Goal 2:: Patient will maintain proper posture t/o tx session to demo increased core s/s Goal Time Frame: 4-6 Weeks Goal Progress: Progressing Goal 3:: Patient will report 80% improvement Goal Time Frame: 4-6 Weeks Goal Progress: Progressing Anticipated Interventions Patient/Client Instruction: Educate patient on: Benefits of Fitness Program Therapeutic Exercise to Include: Strength training, Endurance training, Balance training, Coordination, Agility training, Body mechanics, Postural training, Flexibilty training, Gait and locomotor training, Neuromotor development, In an aquatic setting, Dynamic Lumbar Stabilization, Scapular Strength/Stabilization For the Purpose of:: To improve muscle performance and motor function Please do not hesitate to contact me at [phone] by phone or if you have questions or concerns regarding this new plan of care! Sincerely, STEVE EmanuelT
--- NOTE | 2022-02-04 11:19 | HP.PTDCSUM_ITS ---
It has been my pleasure to treat FROY PITTMAN referred by Dr. Hitesh Maria DO, with the diagnosis of Lumbar Pain for a total of 16 visit(s). Discharge Date: Please see the following information for a summary of their discharge status. Subjective: Patient reports that she had an injection and feels that therapy has really helped. She feels 90-95% better. She does not have any issues with ADL's. RLE Pain Intensity (Out of 10): 8 SI Pain Intensity (Out of 10): 8 % Improvement: 95 Objective/Function: Posture: Fair throughout Gait: no deviation noted- good arm swing and trunk rotation. ROM: Lumbar: WFL without pain Strength: Core: fair, Right: Hip: 4+/5, Knee: 4+/5, Ankle: 5/5. Left: Hip: 4+/5, Knee:5/5, Ankle: 4+/5. Flex: hypermobility throughout. Sensation: WNL. Reflex: WNL. - Special Tests. L Hip Scour: Negative. L Hip DENG - Intraarticular Pathology: Negative. L Hip FADDIR - Labrum: Negative. L Hip Trendelenberg - Glut Medius: Negative Goal 1:: Patient will be I with HEP and progression Goal Progress: Progressing Goal 2:: Patient will maintain proper posture t/o tx session to demo increased core s/s Goal Progress: Progressing Goal 3:: Patient will report 80% improvement Goal Progress: Progressing Plan: 02/04/22: Discharge to I HEP-educated on importance of HEP and continued strength. *f/u with HEP tasks d/t recent non-compliance. *Progress DLP tasks to kitchen sink tasks next. 12/30/21: Continued aquatics 2x 4 weeks for p rogression of core strength/stabilization. Aquatic PT- focus on LE and core strength/stabilization If there are questions or concerns regarding this patient's physical therapy, please feel free to call me at [phone]. Thank you for the referral of this patient. Sincerely, Lorraine Smith, DPT Balance/Gait/Functional tests - Balance/Special Test Scores Oswestry Low Back Score: 3
== END 2022-02-04 19:00 | disposition home or self-care (01) ==
LOC: PT 11:00
PROVIDERS: PCP Student in an Organized Health Care Education/Training Program; Referring Provider Student in an Organized Health Care Education/Training Program; Visit Provider Student in an Organized Health Care Education/Training Program
DX: M25.561 Pain in right knee (principal); M25.562 Pain in left knee; G89.29 Other chronic pain; M54.41 Lumbago with sciatica, right side; M54.42 Lumbago with sciatica, left side; M53.3 Sacrococcygeal disorders, not elsewhere classified
CPT/HCPCS: 97110; 97113; 97162; 97164

== ENCOUNTER 2022-09-18 09:30 | Outpatient (RCR) | payer MEDICARE, SELFPAY ==
--- NOTE | 2022-08-25 15:56 | HP.PTEVAL_ITS ---
Patient's Visit Information Visit Information Visit Information: FROY PITTMAN is a 67 year old F referred to Physical Therapy by RC KULKARNI with a diagnosis of CHRONIC PATELLOFEMORAL PAIN OF LEFT KNEE. Date of Evaluation: 08/25/22 Physical Therapist: Shane Nguyen, PT, Cert MDT, OCS Visit Plan Frequency: 2x /Week Duration: 4 Weeks Plan: PT INTERVENTIONS STRENGTHENING QUADS/HAMSTRINGS/HIP ,FUNCTIONAL STRENGTHENING AND MODALTIES NEEDED Subjective Subjective: This 67 y/o female presents to physical therapy with right patellofemoral. Patient has had pain left knee pain for ~ 2months gradually worsen. Patient seen DR x-rays showed DJD . Pain located anterior knee pain. Aggravating squatting/kneeling/stairs/ extended walking. Alleviating factors rest. Denies paresthesia/tingling. Pain described as sharp throbbing pain. Sleeping okay but initially aggravating sleep. Patient has no injury . Patient left knee pain affects QOL and ADLS. Goals to decrease pain. SOCAIL: single VOCATION: retired Pain Left Knee: Pain Intensity (Out of 10): 3 Pain Intensity Range: 10 Objective Objective: POSTURE: WFL GAIT: reciprocal pattern EDEMA: absent PALAPTION: unremarkable MMT: quads/hams 4/5 ,hip flexion 4/5 ,hip abd 4-/5 ,ankle 5/5 STAIRS: alternating with rails Special Tests L Knee Frannie - Meniscus: Negative L Knee Lulu - ACL: Negative L Knee Anterior Drawer - ACL: Negative L Knee Posterior Drawer - PCL: Negative L Knee Posterior Sag - PCL: Negative L Knee Valgus - MCL: Negative L Knee Varus - LCL: Negative L Knee Patellar Apprehension - PFS: Positive L Knee Patellar Grind - PFS: Positive L Knee Medial Patellar Plica - Plica Syndrome: Negative Balance/Special Test Scores Lower Extremity Functional Score: 39 Goals Goal 1:: I with HEP Goal Time Frame: 4-6 Weeks Goal 2:: Patient to demonstrate 50% improvement with less pain and improved function. Goal Time Frame: 4-6 Weeks Goal 3:: Patient to be able to squat /kneel and perform stairs with min limitations. Goal Time Frame: 4-6 Weeks Goal 4:: Patient to improve LFES score by 5 points or > to improve QOL and function. 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 and pain with squatting /kneeling and stairs thus benefit from skilled PT Rehabilitation Potential: Good Anticipated Interventions Patient/Client Instruction: Educate patient on: Condition and Plan of Care For the Purpose of:: To decrease pain, To increase ROM, To improve muscle performance and motor function, To increase tolerance to activity/condition/position, To improve ability of physical actions for home/c ommunity/work/leisure, To improve health of tissue, To improve endurance, To improve balance, To reduce risk of recurrence and To improve tolerance to ADL's Therapeutic Exercise to Include: Strength training, Endurance training, Balance training, Flexibilty training and Active ROM Comment: QUADS/HAMS/HIP For the Purpose of:: To decrease pain, To increase ROM, To improve muscle performance and motor function, To improve ability to perform ADL's, To increase tolerance to activity/condition/position, To improve ability of physical actions for home/community/work/leisure, To improve health of tissue, To decrease soft tissue restriction, To increase flexibility/ROM and To improve endurance TENS: Yes IF ES: Yes Cryotherapy (ice pack, ice massage): Yes Thermo therapy (hot pack): Yes Ultrasound (thermal/non thermal): Yes For the Purpose of:: To decrease pain, To increase ROM, To improve ability of physical actions for home/community/work/leisure, To improve health of tissue, To decrease soft tissue restriction, To increase flexibility/ROM and To improve tolerance to ADL's Text: Thank you for the opportunity to evaluate your patient. For Medicare and Medicare HMO plans, please review the plan of care and approve it. It will need to be FAXED BACK to us at [phone] for Medicare purposes. For Medicare only, by signing this I certify the plan of care. Please let me know if there are questions or concerns regarding this plan of care. Physician Signature: ___Date:
--- NOTE | 2022-09-18 09:54 | HP.PTDCSUM ---
Discharge Summary D/C summary: It has been my pleasure to treat FROY PITTMAN referred by RC KULKARNI, with the diagnosis of CHRONIC PATELLOFEMORAL PAIN OF LEFT KNEE for a total of 9 visit(s). Discharge Date: Please see the following information for a summary of their discharge status. Subjective Subjective: Doing well ..ready for d/c Pain Left Knee: Pain Intensity (Out of 10): 0 Overall Improvement % Improvement: 90 Objective Objective/Function: Objective: POSTURE: WFL GAIT: reciprocal pattern EDEMA: absent PALAPTION: unremarkable MMT: quads/hams 4/5 ,hip flexion 4/5 ,hip abd 4-/5 ,ankle 5/5 STAIRS: alternating with rails Goals Goal 1:: I with HEP Goal Progress: Goal Met Goal 2:: Patient to demonstrate 50% improvement with less pain and improved function. Goal Progress: Goal Met Goal 3:: Patient to be able to squat /kneel and perform stairs with min limitations. Goal Progress: Goal Met Goal 4:: Patient to improve LFES score by 5 points or > to improve QOL and function. Goal Progress: Goal Met Plan Plan: PT INTERVENTIONS STRENGTHENING QUADS/HAMSTRINGS/HIP ,FUNCTIONAL STRENGTHENING AND MODALTIES NEEDED D/C Information d/c sentence: If there are questions or concerns regarding this patient's physical therapy, please feel free to call me at [phone]. Thank you for the referral of this patient. Sincerely, Shane Nguyen, PT, Cert MDT, OCS Balance/Gait/Functional tests Balance/Special Test Scores Lower Extremity Functional Score: 39
== END 2022-09-18 15:12 | disposition home or self-care (01) ==
LOC: PT 09:30
PROVIDERS: PCP Student in an Organized Health Care Education/Training Program
DX: M25.562 Pain in left knee (principal); G89.29 Other chronic pain
CPT/HCPCS: 97110; 97162; 97530

== ENCOUNTER 2022-11-03 18:10 | Emergency (ER) | payer MEDICARE, SELFPAY ==
[2022-11-03 18:10] VITALS: BP 155/91; PULSE 96; RESP 16; TEMP 36.9; O2SAT 99
[2022-11-03 18:40] LABS: Absolute Lymphocyte Count 2.43 X10^3/uL (0.83-4.51); Absolute Neutrophil Count 6.7 X10^3/uL (2.0-7.7); Basophil# 0.05 X10^3/uL; Basophil% 0.5 % (0-1); Eosinophil# 0.09 X10^3/uL; Eosinophils% 0.9 % (0-5); Hematocrit 42.2 % (37-47); Hemoglobin 13.5 g/dL (12.0-15.0); Lymphocyte # 2.43 X10^3/ul (0.83-4.51); Lymphocyte % 23.9 % (19-41); Mean Corpuscular Volume 90.6 fL (81-99); Monocyte# 0.85 X10^3/uL; Monocyte% 8.4 % (0-10); NRBC Flagged by Analyzer 0 % (0-5); Neutrophil # 6.69 X10^3/uL (2.7-7.7); Neutrophil % 65.8 % (47-70); Platelet Count 335 K/mm3 (150-450); RBC Distribution Width CV 13.6 % (11.6-14.6); RBC Distribution Width SD 44.9 fl (35.1-43.9); Red Blood Count 4.66 M/mm3 (4.2-5.4); White Blood Count 10.2 K/mm3 (4.4-11.0)
[2022-11-03 18:56] LABS: Anion Gap 6 (5-15); BUN 18 mg/dL (7-18); BUN/Creat Ratio 25.5 RATIO (10-20); Chloride 108 mmol/L (98-107); Creatinine, Serum 0.71 mg/dL (0.55-1.02); EST Glomerular Filtration Rate 88 mL/min (>60); Est Glom Filt Rate - Afr Amer 106 mL/min (>60); Glucose 125 mg/dL (74-106); Potassium 3.5 mmol/L (3.5-5.1); Sodium Level 140 mmol/L (136-145); Troponin-I HS (w/2H Reflex) 4 pg/mL (3.0-54.0)
--- NOTE | 2022-11-03 19:00 | RAD_ITS ---
INDICATION: chest pain EXAMINATION/TECHNIQUE: X-RAY - XR Chest 1 View COMPARISON: 04/06/2020 FINDINGS: LIFE-SUPPORT AND LINES: 1. None HEART AND VESSELS: The cardiac silhouette, pulmonary vasculature have normal appearance. No evidence of congestive failure. LUNGS AND PLEURAL SPACES: Elevation LEFT hemidiaphragm, gaseous distention of the stomach underlying LEFT hemidiaphragm. Mild basilar atelectasis and crowding of bronchovascular markings due to elevation LEFT hemidiaphragm however remaining lung zones are clear. No pulmonary mass is noted. MEDIASTINUM AND HILAR REGIONS: No masses adenopathy noted. No areas of calcification. Visualized upper airway is normal in position. BONY ELEMENTS: RIGHT 6th rib fracture with mild displacement without interval change. RAD/Chest 1 View (Portable) IMPRESSION: 1. Elevation LEFT hemidiaphragm, crowding of bronchovascular markings and mild atelectasis however no focal infiltrate, consolidation, or effusion. 2. No evidence congestive failure. 3. Healed RIGHT 6th rib fracture. Electronically Signed: Chester Wood MD at 19:25 EDT ,
[2022-11-03 19:20] VITALS: PULSE 98; RESP 17; O2SAT 98; BMI 23.6
[2022-11-03] MEDS: 0.9% Normal Saline (500mL Bag) 500 ML 999 ML IV (20:01)
--- NOTE | 2022-11-03 20:09 | EDS_ITS ---
HPI History of Present Illness Chief Complaint: Palpitations [facility] Medical History Arthritis Asthma Back pain Cancer Diabetes Dietary restriction High cholesterol History of echocardiogram History of edema History of irregular heartbeat History of steroid therapy Hypertension Non-smoker Thyroid disease Wears glasses Home Medications atorvastatin 20 mg tablet 20 mg PO QHS cholesterol 04/02/13 [History Last Taken 09/22/18] irbesartan 150 mg tablet (Avapro) 150 mg PO DAILY bp 04/02/13 [History Last Taken 06/18/21] montelukast 10 mg tablet 10 mg PO DAILY allergies 04/02/13 [History Last Taken 09/23/18] aspirin 81 mg tablet,delayed release 81 mg PO DAILY heart health 09/23/18 [History Last Taken 06/05/21] cetirizine 10 mg tablet 10 mg PO DAILY allergies 09/23/18 [History Last Taken 06/18/21] cholecalciferol (vitamin D3) 25 mcg (1,000 unit) tablet 1,000 unit PO DAILY supplement 09/23/18 [History Last Taken 09/23/18] gabapentin 300 mg capsule 300 mg PO BID nerve pain 09/23/18 [History Last Taken 06/18/21] meloxicam 15 mg tablet 15 mg PO DAILY pain 09/23/18 [History Last Taken 09/23/18] wwyzbwir-oxlz-otgl 8 mg-folic 400 mcg-K 50 mcg-lutein 300 mcg tablet 1 tab PO DAILY supplement 09/23/18 [History Last Taken 09/23/18] tolterodine 4 mg capsule,extended release 24 hr 4 mg PO DAILY bladder 09/23/18 [History Last Taken 09/23/18] albuterol sulfate 90 mcg/actuation aerosol inhaler 1 - 2 puff inhalation Q4H PRN PRN Shortness Of Breath ##1 09/24/18 [Rx Last Taken Unknown] metformin 500 mg tablet 500 mg PO DAILY dm ##0 09/24/18 [Rx Last Taken 09/23/18] hydrocortisone 1.9 %-iodoquinol 1 %-aloe vera topical cream packet 2 gm TP TID 04/06/20 [History Last Taken Unknown] ibuprofen 800 mg tablet 800 mg PO TID PRN PRN Pain Score 1-10 #20 tabs 04/06/20 [Rx Last Taken Unknown] metaxalone 800 mg tablet 0.5 - 1 tab PO TID 04/06/20 [History Last Taken Unknown] carboxymethylcellulose sodium 1 % eye liquid gel drops 2 drp EACH EYE BID PRN Dry Eyes 06/11/21 [History Last Taken Unknown] glucosamine 500 cz-wznszwlocj-bsy9 416.6 mg-C 20 mg-brenda 0.6 mg tablet 1 tab PO DAILY 06/11/21 [History Last Taken Unknown] latanoprost 0.005 % eye drops 1 drp EACH EYE DAILY 06/11/21 [History Last Taken 06/18/21] magnesium 500 mg tablet 15 mg PO QHS 06/11/21 [History Last Taken Unknown] Allergy/AdvReac Type Severity Reaction Status Date / Time baclofen Allergy Other Verified 11/03/22 19:22 bupropion [From Wellbutrin] Allergy Other Verified 11/03/22 19:22 erythromycin base Allergy Rash Verified 11/03/22 19:22 [Erythromycin Base] nifedipine Allergy Other Verified 11/03/22 19:22 pregabalin [From Lyrica] Allergy Anaphylaxis Verified 11/03/22 19:22 ramipril [From Altace] Allergy Anaphylaxis Verified 11/03/22 19:22 Sulfa (Sulfonamide Allergy Swelling Verified 11/03/22 19:22 Antibiotics) trazodone Allergy Other Verified 11/03/22 19:22 atenolol AdvReac Other Verified 11/03/22 19:22 doxepin AdvReac Other Verified 11/03/22 19:22 fenofibrate AdvReac Other Verified 11/03/22 19:22 mirtazapine [From Remeron] AdvReac Other Verified 11/03/22 19:22 nefazodone [From Serzone] AdvReac Other Verified 11/03/22 19:22 olmesartan AdvReac Diarrhea Verified 11/03/22 19:22 pineapple AdvReac Swelling Verified 11/03/22 19:22 turkey AdvReac Swelling Verified 11/03/22 19:22 Surgical History History of bunionectomy Hx of eye surgery Hx of hand surgery Hx of left mastectomy Hx of tonsillectomy Hx of wisdom tooth extraction Social History Smoking Status: Never smoker EXAM Physical Exam Const Vital Signs: 11/03/22 18:10 11/03/22 19:20 11/03/22 19:20 Temperature 98.5 F Temperature Source Temporal Pulse Rate 96 98 Respiratory Rate 16 17 Respiratory Effort Blood Pressure 155/91 H Blood Pressure Mean 112 Pulse Ox 99 98 98 Oxygen Delivery Method Room Air Room Air Room Air 11/03/22 19:22 Temperature Temperature Source Pulse Rate Respiratory Rate Respiratory Effort Short of Breath Blood Pressure Blood Pressure Mean Pulse Ox Oxygen Delivery Method MDM MDM MDM Narrative Medical decision making narrative: HISTORY OF PRESENT ILLNESS: 67-year-old female here with palpitations. States been going on for 1 day. Note has been taking migraine medicine that contains caffeine. Denies any other stimulant use or drug use. Denies chest pain. The patient denies recent surgery in the last 4 weeks or immobilization in the last 3 days, denies previous diagnosis of DVT or PE, hemoptysis, unilateral leg swelling or malign jose with treatment the last 6 months or palliative. No estrogen use noted. No vomiting, no bleeding diathesis. No diarrhea. No history of thyroid dysfunction. REVIEW OF SYSTEMS: Pertinent positives: Palpitations Pertinent negatives: Chest pain, shortness of breath PHYSICAL EXAM: Nursing triage notes reviewed, Vital signs reviewed Constitutional: please see mdm HENT: MMM Eyes: Pupils equal round and reactive to light, Extraocular muscles intact Neck: No stridor, no JVD, full neck ROM Lungs: Clear to auscultation, No wheezing or rales. No increased work of breathing, no conversational dyspnea, no accessory muscle use, no nasal flaring. No respiratory distress noted Heart: Regular rate and rhythm, No murmurs, No rubs and No gallops, 2+ distal pulses (radial, femoral, posterior tibial) in all extremities Abdomen: Soft, there is no tenderness, rigidity, rebound or guarding, no obvious peritoneal signs, no palpable pulsatile abdominal masses, no auscultated abdominal bruit : No CVAT Extremities: No edema Neuro: No focal neurological deficits, cranial nerves II through XII intact, 5/5 strength in all extremities. Intact sensation to light touch in all extremities, 2+ reflexes bilateral patella tendons. Normal gait. No ataxia. Skin: No rash or lesions noted MEDICAL DECISION MAKING: Chief Complaint: Palpitations External records reviewed: Imaging reviewed: No recent echocardiograms or Holter monitor is noted in the chart Factors affecting care: Hyperlipidemia, type 2 diabetes Social determinants of health: none History obtained from others: none Consults: none [facility] Narrative: Patient was hemodynamically stable, afebrile, nontoxic-appearing. Exam with no focal cardiopulmonary maladies. Heart was S1-S2 with no murmurs gallops rubs or irregularity noted on palpation or auscultation. I considered the following differential diagnosis: Arrhythmia, myocardial schema, anemia, electrolyte abnormalities, pneumonia, thyroid dysfunction, stimulant use I considered thyroid dysfunction as potential etiology however patient had no proptosis, severe vital sign derangements to suggest thyroid storm. I considered pneumonia however patient's lungs are clear she is not hypoxic and no fever. Low suspicion for pneumonia at this time. Clinically the patient's presentation likely secondary to stimulus given she was using migraine medicine that contains caffeine ALL IMAGES (IF OBTAINED) HAVE BEEN PERSONALLY REVIEWED AND INTERPRETED BY MYSELF. EKG with normal sinus rhythm, normal axis, normal intervals, no STEMI CBC without leukocytosis, severe anemia, no thrombocytopenia. BMP without evidence of significant electrolyte abnormalities, no anion gap, no acute kidney injury. Troponin is negative, no evidence of myocardial ischemia The amalgamation of the patient's labs and EKG were unremarkable for life- threatening arrhythmia or other etiology to explain the patient's symptoms. I suspect the patient's palpitations are secondary to stimulus in the form of caffeine-containing migraine medication. She was given 500 cc of normal saline encouraged to discontinue taking caffeine-containing medicines as well as decrease other stimulants including caffeine tea or other energy drinks. She was given close PCP follow-up for outpatient Holter monitoring and possibly echocardiogram. The patient and/or family, caregivers express understanding. The patient and/or family, caregivers agrees with the plan. Shared decision making: I will have a discussion with the patient and or visitors regarding risk/benefits of further testing or admission. They will be made aware of of the risk/benefits inherent in this decision they will be given the opportunity to voice understanding. Total critical care time today provided was at least 0 [] minutes. This excludes separately billable procedures. Critical care time (if documented) is secondary to the patient having high probability of clinically significant/life threatening deterioration in the patient's condition which required my urgent intervention. Impression: 1. Palpitations 2. Excessive caffeine intake Dispo: Discharge Lab Data Labs: Laboratory Results - last 24 hr 11/03/22 18:30 WBC 10.2 RBC 4.66 Hgb 13.5 Hct 42.2 MCV 90.6 MCH 29.0 MCHC 32.0 RDW Std Deviation 44.9 H RDW Coeff of Elisabeth 13.6 Plt Count 335 MPV 10.0 Immature Gran % (Auto) 0.500 Neut % (Auto) 65.8 Lymph % (Auto) 23.9 [place] % (Auto) 8.4 Eos % (Auto) 0.9 Baso % (Auto) 0.5 Absolute Neuts (auto) 6.7 Absolute Lymphs (auto) 2.43 Nucleated RBC % 0 Sodium 140 Potassium 3.5 Chloride 108 H Carbon Dioxide 26.0 Anion Gap 6 BUN 18 Creatinine 0.71 Est GFR (MDRD) Af Amer 106 Est GFR (MDRD) Non-Af 88 BUN/Creatinine Ratio 25.5 H Glucose 125 H Calcium 9.0 Troponin I High Sens 4 Radiography Diagnostic Testing: Clinical Impression(s) from Imaging Studies Chest X-Ray 11/03/22 19:00 IMPRESSION: 1. Elevation LEFT hemidiaphragm, crowding of bronchovascular markings and mild atelectasis however no focal infiltrate, consolidation, or effusion. 2. No evidence congestive failure. 3. Healed RIGHT 6th rib fracture. Electronically Signed: Chester Wood MD at 19:25 EDT , Discharge Plan Triage Chief Complaint: Palpitations ED Provider: Manpreet Gray Dx/Rx/DC Orders Prescriptions: No Action atorvastatin 20 MG tablet 20 mg PO QHS montelukast 10 MG tablet 10 mg PO DAILY irbesartan [Avapro] 150 MG tablet 150 mg PO DAILY cetirizine 10 MG tablet 10 mg PO DAILY tolterodine 4 MG capsule,extended release 24hr 4 mg PO DAILY meloxicam 15 MG tablet 15 mg PO DAILY aspirin 81 MG tablet,delayed release (DR/EC) 81 mg PO DAILY gabapentin 300 MG capsule 300 mg PO BID cholecalciferol (vitamin D3) 1,000 UNIT tablet 1,000 unit PO DAILY jobibufl-qdf-ucug-FA-vit K-lut 1 EACH tablet 1 tab PO DAILY albuterol sulfate 1 INHALER inhaler 1 - 2 puff inhalation Q4H PRN PRN (Reason: Shortness Of Breath) Qty: 1 0RF metformin 500 MG tablet 500 mg PO DAILY Qty: 0 0RF Rx Instructions: do not take until 09/28/18 metaxalone 800 MG tablet 0.5 - 1 tab PO TID nkkgykmdipgfpn-vapptrhevd-shmi 2 GM cream in packet 2 gm TP TID ibuprofen 800 MG tablet 800 mg PO TID PRN PRN (Reason: Pain Score 1-10) Qty: 20 0RF latanoprost 0.005 % drops 1 drp EACH EYE DAILY magnesium 500 mg Tablet 15 mg PO QHS carboxymethylcellulose sodium [Refresh] 1 % Drops, Liquid Gel 2 drp EACH EYE BID PRN (Reason: Dry Eyes) Pkzrdehm-Yjfzp-SWQ(with boron) 500-416.6-20 mg Tablet 1 tab PO DAILY Primary Care Provider: Hitesh Maria Referrals: Hitesh Maria DO [Primary Care Provider] -
[2022-11-03 20:19] VITALS: BP 145/83; PULSE 74; RESP 15; O2SAT 99
[2022-11-03 20:36] LABS: Reflex Troponin-HS? (from REC) Y
[2022-11-03 20:49] VITALS: BP 150/86; PULSE 83; RESP 17; O2SAT 100
== END 2022-11-03 21:05 | disposition home or self-care (01) ==
LOC: ED 20:31
PROVIDERS: Emergency Provider Emergency Medicine; PCP Student in an Organized Health Care Education/Training Program; Visit Provider Emergency Medicine
DX: R00.2 Palpitations (principal)
CPT/HCPCS: 71045; 80048; 84484; 85025; 93005; 96360; 99284; J7040; A4216

== ENCOUNTER → 2022-12-29 | Outpatient (CLI) | payer MEDICARE, SELFPAY | END | disposition home or self-care (01) | PROVIDERS: PCP Student in an Organized Health Care Education/Training Program; Referring Provider Student in an Organized Health Care Education/Training Program; Visit Provider Student in an Organized Health Care Education/Training Program | DX: G47.33 Obstructive sleep apnea (adult) (pediatric) (principal); R53.83 Other fatigue | CPT/HCPCS: 95810 ==

== ENCOUNTER → 2023-03-03 | Outpatient (CLI) | payer MEDICARE, SELFPAY ==
--- OUTSIDE RECORDS SUMMARY | 2023-03-03 20:02 | XMS RPT_ITS | CCD ---
Author Name Unknown Address [address] [employer] [facility] [address] [place] [address] Organization [facility] Care Team Providers Care Global Marketing Specialist Name Role Phone Reilly SIBLEY MD, Daesung Unavailable Hitesh Maria DO Primary Care Provider Luis Kelley MD Unavailable Domingo Andrews PA-C Unavailable [phone] Reilly SIBLEY MD, Daesung Unavailable Hitesh Maria DO Primary Care Provider Hitesh Maria DO Primary Care Provider Reilly SIBLEY MD, Daesung Unavailable Hitesh Maria DO Primary Care Provider HITESH MARIA Primary Care Unavailable CHAVEZ, JEREMY Admitting Unavailable CHAVEZ, JEREMY Attending Unavailable MARIAHITESH Primary Care Unavailable HITESH MARIA Primary Care Unavailable CHAVEZ, JEREMY Admitting Unavailable CHAVEZ, JEREMY Attending Unavailable CHAVEZ, JEREMY Admitting Unavailable CHAVEZ, JEREMY Attending Unavailable MARIAHITESH Primary Care Unavailable HITESH MARIA Primary Care Unavailable UNGPRASERT, PATOMPONG Referring UnavailHITESH Helms Primary Care Unavailable KATHY, JEREMY Attending Unavailable HITESH MARIA Primary Care Unavailable PETRA LANGLEY Referring Unavailable MARIA, HITESH Santos Primary Care Unavailable SIGIFREDO PARIS Attending Unavailable JAMIL NIXON Attending Unavailable MARIAHITESH Primary Care Unavailable ELICEO BEAVER Attending Unavailable HITESH MARIA Primary Care Unavailable HITESH MARIA Primary Care Unavailable CONNIE PICKERING Attending Unavailab le MARIA, HITESH L Primary Care Unavailable CONNIE PICKERING Referring Unavailab le MARIA, HITESH L Primary Care Unavailable CONNIE PICKERING Referring Unavailab le MARIA, HITESH L Primary Care Unavailable MARIA, HITESH L Referring Unavailable MARIA, HITESH L Primary Care Unavailable BELEN WHITNEY Attending Unavailable MARIA, HITESH L Primary Care Unavailable FREDA, NYA Attending Unavailable BEN PAULSON Referring Unavailable REGOTTI, YSABEL Attending Unavailable MARIA, HITESH L Primary Care Unavailable MARIA, HITESH L Primary Care Unavailable MARIA, HITESH L Attending Unavailable MARIA, HITESH L Primary Care Unavailable MARIA, HITESH L Referring Unavailable VIPUL DIASRIA Attending Unavailable MARIA, HITESH L Primary Care Unavailable DOMINGO ROBERTO Attending Unavailable MARIA, HITESH L Primary Care Unavailable MARIA, HITESH L Primary Care Unavailable MARIA, HITESH L Referring Unavailable MARIA, HITESH L Primary Care Unavailable MARIA, HIETSH L Attending Unavailable CHENCHO YOUNGYSON Attending Unavailable MARIA, HITESH L Primary Care Unavailable JERAMY STEPHANIE Referring Unavailable MARIA, HITESH L Primary Care Unavailable LORENA RODRIGUEZ Attending Unavailable MARIA, HITESH L Primary Care Unavailable NYA BARBA Referring Unavailable PETRA LANGLEY Referring Unavailable MARIA, HITESH L Primary Care Unavailable SIGIFREDO PARIS Attending Unavailable JAMIL NIXON Attending Unavailable JAMIL NIXON Admitting Unavailable MARIA, HITESH L Primary Care Unavailable MARIA, HITESH L Primary Care Unavailable MOLLY MCCARTNEY Attending Unavailabl e MARIA, HITESH L Primary Care Unavailable DOMINGO ROBERTO Referring Unavailable MARIA, HITESH L Primary Care Unavailable JAMIL NIXON Attending Unavailable JAMIL NIXON Admitting Unavailable MARIA, HITESH L Primary Care Unavailable JAMIL NIXON Attending Unavailable JAMIL NIXON Admitting Unavailable MARIA, HITESH L Primary Care Unavailable MARIA, HITESH L Primary Care Unavailable JEREMY CHAVEZ Attending Unavailable MARIA, HITESH L Primary Care Unavailable JORGE WEBSTER Attending Unavailable MARIA, HITESH L Primary Care Unavailable JEREMY CHAVEZ Referring Unavailable MARIA, HITESH L Primary Care Unavailable BEN PAULSON Attending Unavailable MARIA, HITESH L Primary Care Unavailable JEREMY CHAVEZ Referring Unavailable MARIA, HITESH L Primary Care Unavailable DARIUSZ SHARPE Attending Unavailable MARIA, HITESH L Primary Care Unavailable MARIA, HITESH L Primary Care Unavailable MARIA, HITESH L Primary Care Unavailable SD, ELICEO Referring Unavailable BEN PAULSON Referring Unavailable YSABEL DIAS Attending Unavailable MARIA, HITESH L Primary Care Unavailable MARIA, HITESH L Primary Care Unavailable JEREMY CHAVEZ Referring Unavailable MARIA, HITESH L Primary Care Unavailable MARIA, HITESH L Primary Care Unavailable CHAVEZJEREMY MICHAEL Referring Unavailable MARIA, HITESH L Primary Care Unavailable MARIA, HITESH L Primary Care Unavailable UNGPRASERT, PATOMPONG Attending Unavailabl e MARIA, HITESH L Primary Care Unavailable FREDANYA GARRETT Attending Unavailable MARIA, HITESH L Primary Care Unavailable FREDA, NYA Referring Unavailable DOMINGO ROBERTO Referring Unavailable MARIA, HITESH L Primary Care Unavailable VIPUL SHARPERA Attending Unavailable MARIA, HITESH L Primary Care Unavailable MARIA, HITESH L Primary Care Unavailable FREDA, NYA Attending Unavailable MARIA, HITESH L Primary Care Unavailable FREDA, NYA Referring Unavailable BEN PAULSON Referring Unavailable MARIA, HITESH L Primary Care Unavailable MARIA, HITESH L Primary Care Unavailable MARIA, HITESH L Referring Unavailable FREDA, NYA Attending Unavailable MARIA, HITESH L Primary Care Unavailable FREDA, NYA Referring Unavailable ELICEO BEAVER Attending Unavailable MARIA, HITESH L Primary Care Unavailable Allergies Allergy Classification Reported Allergen(s) Allergy Type Date of Onset Reaction(s) Facility (20 sources) amLODIPine; Translations: [AMLODIPINE] Drug Allergy 03-15-19 22 Itching [facility] Work Phone: (20 sources) Atenolol; Translations: [ATENOLOL] Drug Allergy 03-09-19 15 Other: See Comments [facility] Work Phone: (20 sources) Baclofen; Translations: [BACLOFEN] Drug Allergy 09-18-19 18 Intolerance [facility] (20 sources) buPROPion; Translations: [BUPROPION HCL] Drug Allergy 12-01-19 15 Intolerance [facility] (20 sources) Cat; Translations: [CATS] Allergy to substance 03-09-19 15 Swelling [facility] Work Phone: (20 sources) Erythromycin; Translations: [ERYTHROMYCIN] Drug Allergy 03-13-19 06 Intolerance [facility] Work Phone: (20 sources) Fenofibrate; Translations: [FENOFIBRATE] Drug Allergy 02-20-19 15 Other: See Comments [facility] (20 sources) Fenofibrate; Translations: [FENOFIBRATE MICRONIZED] Drug Allergy 01-16-20 06 Intolerance [facility] Work Phone: (20 sources) Mirtazapine; Translations: [MIRTAZAPINE] Drug Allergy 03-09-19 15 Other: See Comments [facility] Work Phone: (20 sources) nefazodone; Translations: [NEFAZODONE HCL] Drug Allergy 12-01-19 15 Intolerance [facility] (20 sources) olmesartan; Translations: [OLMESARTAN] Drug Allergy 07-20-19 19 Diarrhea [facility] (20 sources) pregabalin; Translations: [PREGABALIN] Drug Allergy 03-08-19 09 Intolerance [facility] (20 sources) Ramipril; Translations: [RAMIPRIL] Drug Allergy 05-25-19 10 Swelling [facility] (20 sources) Sulfamethoxazole / Trimethoprim; Translations: [SULFAMETHOXAZOLE-T RIMETHOPRIM] Drug Allergy 06-23-19 13 Swelling [facility] Work Phone: (20 sources) traZODone; Translations: [TRAZODONE] Drug Allergy 01-11-20 16 Other: See Comments [facility] (20 sources) turkey allergenic extract; Translations: [TURKEY] Drug Allergy 01-12-20 15 Swelling [facility] (20 sources) Pineapple; Translations: [PINEAPPLE] Drug Allergy 02-23-19 13 Anaphylaxis [facility] Work Phone: (20 sources) Ragweed; Translations: [RAGWEED] Allergy to substance 03-09-19 15 Swelling [facility] Work Phone: (2 sources) buPROPion Drug Allergy 12-12-19 16 [facility] Work Phone: (2 sources) Doxepin Drug Allergy 08-26-19 19 headache, very sleepy, difficult to wake up [facility] Work Phone: (2 sources) House dust mite; Translations: [DUST MITES] allergy to substance 01-12-20 15 [facility] Work Phone: (2 sources) Mirtazapine Drug Allergy 02-20-19 15 hyperactive [facility] Work Phone: (2 sources) nefazodone Drug Allergy 12-12-19 16 grouchy - per patient [facility] Work Phone: (2 sources) pregabalin Drug Allergy 02-23-19 13 facial/oral swelling [facility] Work Phone: (2 sources) Ramipril Drug Allergy 02-23-19 13 swelling /soreness of throat [facility] Work Phone: (2 sources) Sulfacetamide Drug Allergy 02-20-19 15 swelling of mouth [facility] Work Phone: (2 sources) traZODone Drug Allergy 12-12-19 16 headaches [facility] Work Phone: (2 sources) NEPHEDAPINE drug allergy 05-03-19 22 Cognitive impairments, chills, unsteady [facility] Work Phone: (2 sources) NEFEDIPINE drug allergy 03-21-19 22 pressure the head, aura in eyes, fatigue [facility] Work Phone: (2 sources) DRAGONFUIT; Translations: [DRAGONFUIT] food allergy 12-22-19 20 [facility] Work Phone: (2 sources) ANIMALS / CATS; Translations: [ANIMALS / CATS] allergy to substance 02-23-19 13 [facility] Work Phone: (2 sources) PLANT POLLENS; Translations: [PLANT POLLENS] allergy to substance 05-08-19 21 hay fever [facility] Work Phone: (2 sources) THISTLE drug allergy 12-11-19 [facility] Work Phone: (20 sources) Doxycycline; Translations: [DOXYCYCLINE] Drug Allergy 07-04-19 GI Upset [facility] Medications Current Medications Medication Drug Class(es) Dates Sig (Normalized) Sig (Original) atorvastatin 20 mg oral tablet (20 sources) HMG-CoA Reductase Inhibitor Start: 08-13-2022 End: 03-03-2023 take 1 tablet by mouth once daily atorvastatin (LIPITOR) 20 mg tablet Indications: Dyslipidemia Take 1 tablet by mouth once daily. 90 tablet 3 12/03/2022 03/03/2023 Active Completed/Discontinued Medications Medication Drug Class(es) Dates Sig (Normalized) Sig (Original) acetaminophen 500 mg oral tablet (3 sources) Start: 07-08-2022 End: 07-08-2022 take 2 tablets by mouth every six hours as needed acetaminophen (TYLENOL EXTRA STRENGTH) 500 mg tablet Take 2 tablets by mouth every 6 hours as needed for pain for up to 7 days. 56 tablet 2 07/08/2022 07/08/2022 Discontinued Problems Active Problems Problem Classification Problem Date Documented Da te Episodic/Chronic Administrative/social admission (1 source) Education and/or schooling finding; Translations: [Problems related to education and literacy, unspecified] Episodic Asthma (20 sources) Asthma; Translations: [Unspecified asthma, uncomplicated] Onset: 08-19-2005 05-17-2015 Chronic Cancer of breast (20 sources) Intraductal carcinoma in situ of breast; Translations: [Intraductal carcinoma in situ of unspecified breast] Onset: 10-19-2014 10-19-2014 Chronic Diabetes mellitus with complications (20 sources) Disorder of nervous system due to type 2 diabetes mellitus; Translations: [Type 2 diabetes mellitus with other diabetic neurological complication] Onset: 07-02-2022 Chronic Diabetes mellitus without complication (20 sources) Type 2 diabetes mellitus without complication; Translations: [Type 2 diabetes mellitus without complications] Onset: 08-19-2005 02-13-2015 Chronic Diseases of mouth; excluding dental (1 source) Sore mouth; Translations: [Other lesions of oral mucosa] 01-24-2023 Episodic Disorders of lipid metabolism (20 sources) Mixed hyperlipidemia; Translations: [Mixed hyperlipidemia] Onset: 06-15-2020 02-13-2015 Chronic E Codes: Natural/environment (1 source) Repetitive motion disorder; Translations: [Overexertion from repetitive movements, initial encounter] Episodic Essential hypertension (20 sources) Hypertensive disorder; Translations: [Essential (primary) hypertension] Onset: 02-13-2017 02-13-2017 Chronic Fracture of lower limb (2 sources) Closed fracture of distal phalanx of lesser toe; Translations: [Nondisplaced fracture of distal phalanx of right lesser toe(s), initial encounter for closed fracture] Episodic Genitourinary symptoms and ill-defined conditions (20 sources) Mixed urinary incontinence; Translations: [Mixed incontinence] Onset: 10-21-2016 10-21-2016 Chronic Genitourinary symptoms and ill-defined conditions (10 sources) Dysuria; Translations: [Dysuria] Episodic Glaucoma (20 sources) Glaucoma; Translations: [Other specified glaucoma] 04-13-2020 Chronic Heart valve disorders (20 sources) Mitral valve prolapse; Translations: [Nonrheumatic mitral (valve) prolapse] Onset: 11-07-2008 11-07-2008 Chronic Menopausal disorders (1 source) Atrophy of vagina; Translations: [Postmenopausal atrophic vaginitis] 12-31-2022 Chronic Nutritional deficiencies (20 sources) Vitamin D deficiency; Translations: [Vitamin D deficiency, unspecified] Onset: 06-15-2020 06-15-2020 Chronic Osteoarthritis (20 sources) Degenerative joint disease involving multiple joints; Translations: [Polyosteoarthritis, unspecified] Onset: 11-28-2014 03-14-2015 Chronic Other circulatory disease (20 sources) Raynaud's disease; Translations: [Raynaud's syndrome without gangrene] Onset: 08-27-2005 08-27-2005 Chronic Other circulatory disease (1 source) Raynaud's syndrome without gangrene; Translations: [Raynaud's disease without gangrene] Onset: 08-27-2005 Chronic Other congenital anomalies (20 sources) Dulce Maria-Danlos syndrome; 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, unspecified] Onset: 05-17-2015 05-17-2015 Chronic Other connective tissue disease (2 sources) Extensor tenosynovitis of wrist; Translations: [Other synovitis and tenosynovitis, left forearm] Onset: 05-02-2021 05-02-2021 Episodic Other connective tissue disease (1 source) Pain in right foot; Translations: [Pain in right foot] Episodic Other connective tissue disease (1 source) Hypermobility syndrome; Translations: [Hypermobility syndrome] Episodic Other connective tissue disease (1 source) Myofascial pain; Translations: [Myalgia, other site] 02-07-2021 Episodic Other connective tissue disease (1 source) Cramp and spasm; Translations: [Cramp in lower leg] Onset: 02-25-2023 Episodic Other diseases of bladder and urethra (20 sources) Overactive bladder; Translations: [Overactive bladder] Onset: 09-26-2022 Chronic Other female genital disorders (1 source) Vaginal discharge; Translations: [Other specified noninflammatory disorders of vagina] Episodic Other gastrointestinal disorders (1 source) Dysphagia; Translations: [Dysphagia, unspecified] Episodic Other hereditary and degenerative nervous system conditions (8 sources) Restless legs; Translations: [Restless legs syndrome] Onset: 12-03-2022 12-03-2022 Chronic Other hereditary and degenerative nervous system conditions (1 source) Restless legs syndrome; Translations: [Restless legs] Onset: 12-03-2022 Chronic Other inflammatory condition of skin (20 sources) Rosacea; Translations: [Rosacea, unspecified] Onset: 12-18-2006 12-18-2006 Chronic Other inflammatory condition of skin (20 sources) Psoriasis; Translations: [Other psoriasis] Onset: 12-18-2006 12-18-2006 Chronic Other lower respiratory disease (1 source) Snoring; Translations: [Snoring] Onset: 02-06-2023 Episodic Other lower respiratory disease (1 source) Apnea, not elsewhere classified; Translations: [Apneic episode] Onset: 02-06-2023 Episodic Other nervous system disorders (2 sources) Lesion of ulnar nerve, right upper limb; Translations: [Lesion of ulnar nerve] Onset: 10-25-2015 10-25-2015 Chronic Other nervous system disorders (1 source) Other chronic pain; Translations: [Chronic right-sided low back pain with right-sided sciatica] Onset: 02-18-2023 Chronic Other nervous system disorders (1 source) Acute postoperative pain; Translations: [Other acute postprocedural pain] Episodic Other nervous system disorders (1 source) Other acute postprocedural pain; Translations: [Postoperative pain] Onset: 07-08-2022 Episodic Other non-traumatic joint disorders (2 sources) Hip pain; Translations: [Pain in unspecified hip] Episodic Other non-traumatic joint disorders (2 sources) Disorder of patellofemoral joint; Translations: [Pain in left knee] 09-26-2022 Episodic Other non-traumatic joint disorders (1 source) Effusion of right knee joint; Translations: [Effusion, right knee] 01-15-2023 Episodic Other non-traumatic joint disorders (1 source) Pain in left ankle and joints of left foot; Translations: [Acute left ankle pain] Onset: 02-25-2023 Episodic Other non-traumatic joint disorders (1 source) Pain in right knee; Translations: [Acute pain of right knee] Onset: 02-04-2023 Episodic Other non-traumatic joint disorders (1 source) Pain in right hip; Translations: [Pain of right hip] Onset: 02-04-2023 Episodic Other nutritional; endocrine; and metabolic disorders (20 sources) Metabolic syndrome X; Translations: [Metabolic syndrome] Onset: 04-17-2006 04-17-2006 Chronic Other upper respiratory infections (1 source) Sore throat symptom; Translations: [Acute pharyngitis, unspecified] 10-23-2022 Episodic Residual codes; unclassified (8 sources) Obstructive sleep apnea syndrome; Translations: [Obstructive sleep apnea (adult) (pediatric)] Onset: 12-03-2022 12-03-2022 Chronic Residual codes; unclassified (1 source) Other hypersomnia; Translations: [Excessive daytime sleepiness] Onset: 02-06-2023 Chronic Residual codes; unclassified (1 source) Obstructive sleep apnea (adult) (pediatric); Translations: [SAGE (obstructive sleep apnea)] Onset: 12-03-2022 Chronic Residual codes; unclassified (20 sources) Insomnia; Translations: [Insomnia, unspecified] 02-21-2016 Episodic Residual codes; unclassified (3 sources) Presence of neurostimulator; Translations: [Other postprocedural status] Episodic Residual codes; unclassified (2 sources) Postoperative state; Translations: [Other specified postprocedural states] Episodic Residual codes; unclassified (9 sources) Disturbance in sleep behavior; Translations: [Sleep disorder, unspecified] Onset: 12-03-2022 11-27-2022 Episodic Residual codes; unclassified (1 source) Sleep disorder, unspecified; Translations: [Sleep disturbances] Onset: 12-03-2022 Episodic Spondylosis; intervertebral disc disorders; other back problems (20 sources) Degeneration of lumbar intervertebral disc; Translations: [Other intervertebral disc degeneration, lumbar region] Onset: 04-16-2016 01-06-2018 Chronic Spondylosis; intervertebral disc disorders; other back problems (20 sources) Neck pain; Translations: [Cervicalgia] Onset: 01-17-2013 02-04-2021 Episodic Thyroid disorders (20 sources) Goiter; Translations: [Nontoxic goiter, unspecified] Onset: 07-03-2021 Chronic Unclassified (2 sources) Presence of neurostimulator; Translations: [Sacral neurostimulator in situ] Onset: 07-08-2022 Urinary tract infections (20 sources) Acute cystitis; Translations: [Acute cystitis with hematuria] Onset: 07-03-2021 Episodic Past or Other Problems Problem Classification Problem Date Documented Date Episodic/Chronic Allergic reactions (20 sources) Radiation-induced dermatosis; Translations: [Other skin changes due to chronic exposure to nonionizing radiation] Onset: 7 12-18-2006 Episodic Cardiac dysrhythmias (20 sources) Palpitations; Translations: [Palpitations] Onset: 1 06-15-2020 Episodic Complication of device; implant or graft (2 sources) Mechanical complication of genitourinary device; Translations: [Breakdown (mechanical) of urinary electronic stimulator device, initial encounter] Onset: 3 10-22-2022 Episodic Complications of surgical procedures or medical care (20 sources) Malignant hyperthermia; Translations: [Malignant hyperthermia due to anesthesia, initial encounter] Onset: 0 12-09-2019 Episodic Malaise and fatigue (20 sources) Fatigue; Translations: [Other fatigue] Onset: 10-25-202 2 Episodic Other acquired deformities (2 sources) [place]-neck deformity; Translations: [[place]-neck deformity of left finger(s)] Onset: 7 03-25-2016 Episodic Other acquired deformities (2 sources) [place]-neck deformity of right finger(s); Translations: [[place]-neck deformity] Onset: 6 10-25-2015 Episodic Other bone disease and musculoskeletal deformities (20 sources) Somatic dysfunction of lumbar region; Translations: [Segmental and somatic dysfunction of lumbar region] Onset: 8 11-03-2017 Episodic Other bone disease and musculoskeletal deformities (20 sources) Somatic dysfunction of pelvic region; Translations: [Segmental and somatic dysfunction of pelvic region] Onset: 8 11-03-2017 Episodic Other bone disease and musculoskeletal deformities (20 sources) Somatic dysfunction of thoracic region; Translations: [Segmental and somatic dysfunction of thoracic region] Onset: 8 11-03-2017 Episodic Other bone disease and musculoskeletal deformities (20 sources) Cervical somatic dysfunction; Translations: [Segmental and somatic dysfunction of cervical region] Onset: 8 01-08-2018 Episodic Other bone disease and musculoskeletal deformities (20 sources) Somatic dysfunction of rib; Translations: [Segmental and somatic dysfunction of rib cage] Onset: 8 01-08-2018 Episodic Other bone disease and musculoskeletal deformities (20 sources) Somatic dysfunction of head region; Translations: [Segmental and somatic dysfunction of head region] Onset: 8 01-08-2018 Episodic Other circulatory disease (20 sources) Non-neoplastic nevus; Translations: [Nevus, non-neoplastic] Onset: 7 12-18-2006 Episodic Other connective tissue disease (20 sources) Fibromyalgia; Translations: [Fibromyalgia] Onset: 0 12-11-2009 Episodic Other connective tissue disease (20 sources) Enthesopathy of hip region; Translations: [Other specified enthesopathies of unspecified lower limb, excluding foot] Onset: 2 08-15-2011 Episodic Other connective tissue disease (20 sources) Tendinitis of right posterior tibial tendon; Translations: [Posterior tibial tendinitis, right leg] Onset: 9 04-21-2018 Episodic Other connective tissue disease (20 sources) Prepatellar bursitis of left knee; Translations: [Prepatellar bursitis, left knee] Onset: 1 06-15-2020 Episodic Other connective tissue disease (2 sources) Hand cramps; Translations: [Cramp and spasm] Onset: 0 12-22-2019 Episodic Other connective tissue disease (2 sources) Incomplete rotator cuff tear or rupture of left shoulder, not specified as traumatic; Translations: [Partial tear of rotator cuff] Onset: 9 08-25-2018 Episodic Other connective tissue disease (2 sources) Triggering of digit; Translations: [Trigger finger, right ring finger] Onset: 7 04-01-2016 Episodic Other ear and sense organ disorders (1 source) Tinnitus, bilateral; Translations: [Tinnitus of both ears] Onset: 3 Episodic Other female genital disorders (1 source) Other specified noninflammatory disorders of vagina; Translations: [Vaginal discharge] Onset: 3 Episodic Other injuries and conditions due to external causes (2 sources) Injury of wrist; Translations: [Unspecified injury of left wrist, hand and finger(s), initial encounter] Onset: 1 03-08-2020 Episodic Other injuries and conditions due to external causes (2 sources) Injury of finger; Translations: [Unspecified injury of unspecified wrist, hand and finger(s), initial encounter] Onset: 0 11-22-2019 Episodic Other injuries and conditions due to external causes (2 sources) Thumb injury ; Translations: [Unspecified injury of right wrist, hand and finger(s), initial encounter] Onset: 9 12-10-2018 Episodic Other nervous system disorders (20 sources) Trigeminal neuralgia; Translations: [Trigeminal neuralgia] Onset: 9 07-20-2008 Episodic Other non-traumatic joint disorders (20 sources) Pain in left knee; Translations: [Pain in joint, lower leg] Onset: 1 01-23-2020 Episodic Other non-traumatic joint disorders (20 sources) Pain in right hip joint; Translations: [Pain in right hip] Onset: 8 01-08-2018 Episodic Other non-traumatic joint disorders (2 sources) Pain in wrist; Translations: [Pain in left wrist] Onset: 1 02-05-2021 Episodic Other non-traumatic joint disorders (2 sources) Instability of joint; Translations: [Other instability, unspecified joint] Onset: 9 08-19-2018 Episodic Other non-traumatic joint disorders (20 sources) Chronic pain of left upper limb; Translations: [Pain in left shoulder] Onset: 2 07-03-2021 Episodic Other non-traumatic joint disorders (1 source) Effusion, left knee; Translations: [Effusion of left knee] Onset: 3 Episodic Other nutritional; endocrine; and metabolic disorders (20 sources) Unintentional weight loss; Translations: [Abnormal weight loss] Onset: 2 12-03-2021 Episodic Other screening for suspected conditions (not mental disorders or infectious disease) (8 sources) Patient encounter status; Translations: [Encounter for screening mammogram for malignant neoplasm of breast] Onset: 3 Episodic Other skin disorders (20 sources) Disorder of skin pigmentation; Translations: [Disorder of pigmentation, unspecified] Onset: 7 12-18-2006 Episodic Other skin disorders (20 sources) Keratosis; Translations: [Epidermal thickening, unspecified] Onset: 3 Episodic Residual codes; unclassified (20 sources) Bilateral lower limb edema; Translations: [Localized edema] Onset: 2 07-03-2021 Episodic Residual codes; unclassified (1 source) Other specified postprocedural states; Translations: [Post-operative state] Onset: 3 Episodic Sprains and strains (6 sources) Sprain of metacarpophalangeal joint; Translations: [Sprain of metacarpophalangeal joint of right thumb, subsequent encounter] Onset: 6 01-29-2016 Episodic Superficial injury; contusion (2 sources) Contusion of hand; Translations: [Contusion of right hand, initial encounter] Onset: 0 11-10-2019 Episodic Thyroid disorders (3 sources) Finding of thyroid gland; Translations: [Other specified disorders of thyroid] Onset: 3 Episodic Unclassified (2 sources) Problem Results Test Name Value Interpretation Reference Range Facil ity Vital Signs Date Time Vital Sign Value Performing Clinician Facility 01-24-2023 08:36-0500 Body temperature 97.9 [degF] Alfredo Perry MD Work Phone: [facility] 01-24-2023 08:36-0500 Body weight 58.06 kg Alfredo Perry MD Work Phone: [facility] 01-24-2023 08:36-0500 Diastolic blood pressure 80 mm[Hg] Alfredo Perry MD Work Phone: [facility] 01-24-2023 08:36-0500 Heart rate 69 /min Alfredo Perry MD Work Phone: [facility] 01-24-2023 08:36-0500 Respiratory rate 16 /min Alfredo Perry MD Work Phone: [facility] 01-24-2023 08:36-0500 SaO2% (BldA) [Mass fraction] 98 % Alfredo Perry MD Work Phone: [facility] 01-24-2023 08:36-0500 Systolic blood pressure 136 mm[Hg] Alfredo Perry MD Work Phone: [facility] 12-31-2022 11:42-0500 Diastolic blood pressure 73 mm[Hg] Dariusz Sharpe MD Work Phone: [facility] 12-31-2022 11:42-0500 Systolic blood pressure 109 mm[Hg] Dariusz Sharpe MD Work Phone: [facility] 12-03-2022 15:55-0400 Body temperature 98.2 [degF] Hitesh Maria DO Work Phone: [facility] 12-03-2022 15:55-0400 Body weight 59.88 kg Hitesh Nyrison DO Work Phone: [facility] 12-03-2022 15:55-0400 Diastolic blood pressure 82 mm[Hg] Hitesh Paulinoon DO Work Phone: [facility] 12-03-2022 15:55-0400 Heart rate 80 /min Hitesh Maria DO Work Phone: [facility] 12-03-2022 15:55-0400 Respiratory rate 16 /min Hitesh Maria DO Work Phone: [facility] 12-03-2022 15:55-0400 Systolic blood pressure 136 mm[Hg] Hitesh Maria DO Work Phone: [facility] 11-11-2022 09:48-0400 Body temperature 97.9 [degF] Joellen Fox CLAIM 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: [facility] 11-11-2022 09:48-0400 Body weight 58.79 kg Joellen Fox CLAIM 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: [facility] 11-11-2022 09:48-0400 Diastolic blood pressure 62 mm[Hg] Joellen Fox CLAIM 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: [facility] 11-11-2022 09:48-0400 Heart rate 78 /min Joellen Fox CLAIM 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: [facility] 11-11-2022 09:48-0400 Respiratory rate 16 /min Joellen Fox CLAIM 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: [facility] 11-11-2022 09:48-0400 SaO2% (BldA) [Mass fraction] 97 % Joellen Fox CLAIM 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: [facility] 11-11-2022 09:48-0400 Systolic blood pressure 110 mm[Hg] Joellen Fox CLAIM 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: [facility] 10-24-2022 18:31-0400 Body temperature 98.6 [degF] Martha Older CLAIM 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: [facility] 10-24-2022 18:31-0400 Body weight 59.78 kg Martha Older CLAIM 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: [facility] 10-24-2022 18:31-0400 Diastolic blood pressure 78 mm[Hg] Martha Older CLAIM 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: [facility] 10-24-2022 18:31-0400 Heart rate 79 /min Martha Older CLAIM 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: [facility] 10-24-2022 18:31-0400 Respiratory rate 22 /min Martha Older CLAIM 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: [facility] 10-24-2022 18:31-0400 SaO2% (BldA) [Mass fraction] 100 % Martha Older CLAIM 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: [facility] 10-24-2022 18:31-0400 Systolic blood pressure 136 mm[Hg] Martha Older CLAIM 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: [facility] 10-23-2022 10:24-0400 Body temperature 99.1 [degF] Kimber Praisler-Wood CLAIM 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: [facility] 10-23-2022 10:24-0400 Body weight 59.51 kg Kimber Praisler-Wood CLAIM 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: [facility] 10-23-2022 10:24-0400 Diastolic blood pressure 90 mm[Hg] Kimber Praisler-Wood CLAIM 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: [facility] 10-23-2022 10:24-0400 Heart rate 76 /min Kimber Praisler-Wood CLAIM 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: [facility] 10-23-2022 10:24-0400 Respiratory rate 21 /min Kimber Praisler-Wood CLAIM 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: [facility] 10-23-2022 10:24-0400 SaO2% (BldA) [Mass fraction] 98 % Kimber Praisler-Wood CLAIM 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: [facility] 10-23-2022 10:24-0400 Systolic blood pressure 142 mm[Hg] Kimber Praisler-Wood CLAIM 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: [facility] 09-26-2022 08:26-0400 Body temperature 97.7 [degF] Hitesh Maria DO Work Phone: [facility] 09-26-2022 08:26-0400 Body weight 59.88 kg Hitesh Maria DO Work Phone: [facility] 09-26-2022 08:26-0400 Diastolic blood pressure 80 mm[Hg] Hitesh Maria DO Work Phone: [facility] 09-26-2022 08:26-0400 Heart rate 76 /min Hitesh Maria DO Work Phone: [facility] 09-26-2022 08:26-0400 Respiratory rate 20 /min Hitesh Maria DO Work Phone: [facility] 09-26-2022 08:26-0400 Systolic blood pressure 120 mm[Hg] Hitesh Maria DO Work Phone: [facility] 08-06-2022 11:00-0400 Heart rate 88 /min Connie Pickering MD Work Phone: [facility] 08-06-2022 10:33-0400 Body temperature 97.9 [degF] Connie Pickering MD Work Phone: [facility] 08-06-2022 10:33-0400 Body weight 58.6 kg Connie Pickering MD Work Phone: [facility] 08-06-2022 10:33-0400 Diastolic blood pressure 72 mm[Hg] Connie Pickering MD Work Phone: [facility] 08-06-2022 10:33-0400 Respiratory rate 16 /min Connie Pickering MD Work Phone: [facility] 08-06-2022 10:33-0400 SaO2% (BldA) [Mass fraction] 96 % Connie Pickering MD Work Phone: [facility] 08-06-2022 10:33-0400 Systolic blood pressure 118 mm[Hg] Connie Pickering MD Work Phone: [facility] 07-22-2022 09:13-0400 Body weight 58.06 kg Ben Paulson CLAIM 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: [facility] 07-22-2022 09:13-0400 Diastolic blood pressure 80 mm[Hg] Ben Paulson CLAIM 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: [facility] 07-22-2022 09:13-0400 Heart rate 86 /min Ben Paulson CLAIM 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: [facility] 07-22-2022 09:13-0400 Respiratory rate 16 /min Ben Paulson CLAIM 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: [facility] 07-22-2022 09:13-0400 Systolic blood pressure 138 mm[Hg] Ben Paulson CLAIM 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: [facility] 07-08-2022 06:38-0400 Body height 157.5 cm Jeremy Chavez MD Work Phone: [facility] 07-08-2022 06:38-0400 Body temperature 97.9 [degF] Jeremy Chavez MD Work Phone: [facility] 07-08-2022 06:38-0400 Body weight 58.97 kg Jeremy Chavez MD Work Phone: [facility] 07-08-2022 06:38-0400 Diastolic blood pressure 87 mm[Hg] Jeremy Chavez MD Work Phone: [facility] 07-08-2022 06:38-0400 Respiratory rate 18 /min Jeremy Chavez MD Work Phone: [facility] 07-08-2022 06:38-0400 SaO2% (BldA) [Mass fraction] 98 % Jeremy Chavez MD Work Phone: [facility] 07-08-2022 06:38-0400 Systolic blood pressure 124 mm[Hg] Jeremy Chavez MD Work Phone: [facility] 05-30-2022 08:30-0400 Body height 158.8 cm Pacc 1 Work Phone: [facility] 05-30-2022 08:30-0400 Body temperature 98.1 [degF] Pacc 1 Work Phone: [facility] 05-30-2022 08:30-0400 Body weight 58.97 kg Pacc 1 Work Phone: [facility] 05-30-2022 08:30-0400 Diastolic blood pressure 80 mm[Hg] Pacc 1 Work Phone: [facility] 05-30-2022 08:30-0400 Heart rate 72 /min Pacc 1 Work Phone: [facility] 05-30-2022 08:30-0400 Respiratory rate 14 /min Pacc 1 Work Phone: [facility] 05-30-2022 08:30-0400 SaO2% (BldA) [Mass fraction] 99 % Pacc 1 Work Phone: [facility] 05-30-2022 08:30-0400 Systolic blood pressure 120 mm[Hg] Pacc 1 Work Phone: [facility] 05-09-2022 09:03-0400 Body weight 58.51 kg Belen Dinh CLAIM 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: [facility] 05-09-2022 09:03-0400 Diastolic blood pressure 72 mm[Hg] Belen Dinh CLAIM 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: [facility] 05-09-2022 09:03-0400 Systolic blood pressure 110 mm[Hg] Belen Timber CLAIM 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: [facility] 04-01-2022 08:54-0500 Body temperature 99 [degF] Molly Mccartney MD Work Phone: [facility] 04-01-2022 08:54-0500 Body weight 58.51 kg Molly Mccartney MD Work Phone: [facility] 02-21-2023 08:54-0500 Diastolic blood pressure 78 mm[Hg] Pattrinh Mccartney MD Work Phone: [facility] 04-01-2022 08:54-0500 Heart rate 78 /min Pattrinh Mccartney MD Work Phone: [facility] 04-01-2022 08:54-0500 Systolic blood pressure 126 mm[Hg] Pattrinh Mccartney MD Work Phone: [facility] 03-14-2022 10:02-0500 Body height 158.8 cm Pulm Wstr Work Phone: [facility] 03-14-2022 10:02-0500 Body weight 58.97 kg Pulm Wstr Work Phone: [facility] 03-14-2022 10:02-0500 Heart rate 88 /min Pulm Wstr Work Phone: [facility] 03-14-2022 10:02-0500 Respiratory rate 12 /min Pulm Wstr Work Phone: [facility] 03-14-2022 10:02-0500 SaO2% (BldA) [Mass fraction] 99 % Pulm Wstr Work Phone: [facility] 03-12-2022 08:16-0500 Body weight 59.78 kg Nya Freda CLAIM 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: [facility] 03-12-2022 08:16-0500 Diastolic blood pressure 78 mm[Hg] Nya Freda CLAIM 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: [facility] 03-12-2022 08:16-0500 Heart rate 77 /min Nya Freda CLAIM 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: [facility] 03-12-2022 08:16-0500 Respiratory rate 16 /min Nya Freda CLAIM 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: [facility] 03-12-2022 08:16-0500 SaO2% (BldA) [Mass fraction] 99 % Nya Freda CLAIM 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: [facility] 03-12-2022 08:16-0500 Systolic blood pressure 122 mm[Hg] Nya Barba CLAIM 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: [facility] 02-24-2022 11:27-0500 Body height 158.8 cm Jeremy Chavez MD Work Phone: [facility] 02-24-2022 11:27-0500 Body weight 58.06 kg Jeremy Chavez MD Work Phone: [facility] 02-24-2022 11:27-0500 Diastolic blood pressure 79 mm[Hg] Jeremy Chavez MD Work Phone: [facility] 02-24-2022 11:27-0500 Heart rate 97 /min Jeremy Chavez MD Work Phone: [facility] 02-24-2022 11:27-0500 Systolic blood pressure 138 mm[Hg] Jeremy Chavez MD Work Phone: [facility] 12-12-2021 11:26-0400 Body weight 58.42 kg Stephanie Zurawick CLAIM 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: [facility] 12-12-2021 11:26-0400 Diastolic blood pressure 64 mm[Hg] Stephanie Zurawick CLAIM 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: [facility] 12-12-2021 11:26-0400 Heart rate 62 /min Stephanie Zurawick CLAIM 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: [facility] 12-12-2021 11:26-0400 Respiratory rate 16 /min Stephanie Zurawick CLAIM 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: [facility] 12-12-2021 11:26-0400 Systolic blood pressure 120 mm[Hg] Stephanie Zurawick CLAIM 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: [facility] 12-03-2021 08:26-0400 Body temperature 97 [degF] Hitesh Maria DO Work Phone: [facility] 12-03-2021 08:26-0400 Body weight 58.06 kg Hitesh Maria DO Work Phone: [facility] 12-03-2021 08:26-0400 Diastolic blood pressure 60 mm[Hg] Hitesh Maria DO Work Phone: [facility] 12-03-2021 08:26-0400 Heart rate 80 /min Hitesh Maria DO Work Phone: [facility] 12-03-2021 08:26-0400 Respiratory rate 16 /min Hitesh Maria DO Work Phone: [facility] 12-03-2021 08:26-0400 Systolic blood pressure 100 mm[Hg] Hitesh Maria DO Work Phone: [facility] 10-24-2021 10:58-0400 Body weight 59.06 kg Stephanie Zurawick CLAIM 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: [facility] 10-24-2021 10:58-0400 Diastolic blood pressure 62 mm[Hg] Stephanie Zurawick CLAIM 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: [facility] 10-24-2021 10:58-0400 Heart rate 68 /min Stephanie Zurawick CLAIM 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: [facility] 10-24-2021 10:58-0400 Respiratory rate 14 /min Stephanie Zurawick CLAIM 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: [facility] 10-24-2021 10:58-0400 Systolic blood pressure 118 mm[Hg] Stephanie Zurawick CLAIM 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: [facility] 10-08-2021 07:51-0400 Body temperature 98.01 [degF] Hannah Deandra CLAIM 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: [facility] 10-08-2021 07:51-0400 Body weight 59.42 kg Hannah Deandra CLAIM 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: [facility] 10-08-2021 07:51-0400 Diastolic blood pressure 64 mm[Hg] Hannah Deandra CLAIM 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: [facility] 10-08-2021 07:51-0400 Heart rate 78 /min Hannah Deandra CLAIM 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: [facility] 10-08-2021 07:51-0400 Respiratory rate 16 /min Hannah Deandra CLAIM 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: [facility] 10-08-2021 07:51-0400 SaO2% (BldA) [Mass fraction] 98 % Hannah Deandra CLAIM 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: [facility] 10-08-2021 07:51-0400 Systolic blood pressure 110 mm[Hg] Hannah Deandra CLAIM 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: [facility] 08-08-2021 11:46-0400 Body weight 60.6 kg Nya Freda CLAIM 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: [facility] 08-08-2021 11:46-0400 Diastolic blood pressure 82 mm[Hg] Nya Freda CLAIM 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: [facility] 08-08-2021 11:46-0400 Heart rate 81 /min Nya Freda CLAIM 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: [facility] 08-08-2021 11:46-0400 Respiratory rate 16 /min Nya Freda CLAIM 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: [facility] 08-08-2021 11:46-0400 SaO2% (BldA) [Mass fraction] 96 % Nya Freda CLAIM 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: [facility] 08-08-2021 11:46-0400 Systolic blood pressure 126 mm[Hg] Nya Freda CLAIM 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: [facility] 05-24-2021 09:40-0400 Body height 160 cm Natan Rankin MD Work Phone: [facility] 05-24-2021 09:40-0400 Body temperature 97.81 [degF] Natan Rankin MD Work Phone: [facility] 05-24-2021 09:40-0400 Body weight 63.05 kg Natan Rankin MD Work Phone: [facility] 05-24-2021 09:40-0400 Diastolic blood pressure 70 mm[Hg] Natan Rankin MD Work Phone: [facility] 05-24-2021 09:40-0400 Heart rate 80 /min Natan Rankin MD Work Phone: [facility] 05-24-2021 09:40-0400 Respiratory rate 18 /min Natan Rankin MD Work Phone: [facility] 05-24-2021 09:40-0400 SaO2% (BldA) [Mass fraction] 93 % Natan Rankin MD Work Phone: [facility] 05-24-2021 09:40-0400 Systolic blood pressure 108 mm[Hg] Natan Rankin MD Work Phone: [facility] 05-06-2021 14:25-0400 Body weight 62.69 kg Stephanie Zurawick CLAIM 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: [facility] 05-06-2021 14:25-0400 Diastolic blood pressure 62 mm[Hg] Stephanie Zurawick CLAIM 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: [facility] 05-06-2021 14:25-0400 Heart rate 72 /min Stephanie Zurawick CLAIM 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: [facility] 05-06-2021 14:25-0400 Respiratory rate 16 /min Setphanie Zurawick CLAIM 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: [facility] 05-06-2021 14:25-0400 Systolic blood pressure 118 mm[Hg] Stephanie Zurawick CLAIM 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: [facility] 05-03-2021 14:22-0400 Body temperature 97.9 [degF] Julia Castillo PA-C Work Phone: [facility] 05-03-2021 14:22-0400 Body weight 63.87 kg Julia Athy PA-C Work Phone: [facility] 05-03-2021 14:22-0400 Diastolic blood pressure 74 mm[Hg] Julia Athy PA-C Work Phone: [facility] 05-03-2021 14:22-0400 Heart rate 71 /min Julia Athy PA-C Work Phone: [facility] 05-03-2021 14:22-0400 Respiratory rate 18 /min Julia Athy PA-C Work Phone: [facility] 05-03-2021 14:22-0400 SaO2% (BldA) [Mass fraction] 99 % Julia Athy PA-C Work Phone: [facility] 05-03-2021 14:22-0400 Systolic blood pressure 126 mm[Hg] Julia Athy PA-C Work Phone: [facility] NEGATED: Highlighted [id number] 11:00-0400 Body height 160.02 cm Dariusz Germainensky AT [facility] Work Phone: NEGATED: Highlighted [id number] 11:00-0400 Body height 160 cm Dariusz Shimensky AT [facility] Work Phone: NEGATED: Highlighted [id number] 11:00-0400 Body mass index (BMI) [Ratio] 24.89 kg/m2 Dariusz Shimensky AT [facility] Work Phone: NEGATED: Highlighted [id number] 11:00-0400 Body weight 63.5 kg Dariusz Shimensky AT [facility] Work Phone: NEGATED: Highlighted [id number] 11:00-0400 Body weight 64 kg Dariusz Shimensky AT [facility] Work Phone: NEGATED: Highlighted [id number] 13:43-0400 Body height 160.02 cm Dariusz Beadnell AT [facility] Work Phone: NEGATED: Highlighted [id number] 13:43-0400 Body height 160 cm Dariusz Beadnell AT [facility] Work Phone: NEGATED: Highlighted [id number] 13:43-0400 Body mass index (BMI) [Ratio] 24.89 kg/m2 Dariusz Beadnell AT [facility] Work Phone: NEGATED: Highlighted [id number] 13:43-0400 Body weight 63.5 kg Dariusz Beadnell AT [facility] Work Phone: NEGATED: Highlighted [id number] 13:43-0400 Body weight 64 kg Dariusz Beadnell AT [facility] Work Phone: Encounters Encounter Date Encounter Type Care Provider Facility Start: 02-25-2023 End: 02-26-2023 ambulatory HITESH L MARIA Facility:[facility] Start: 02-18-2023 End: 02-18-2023 ambulatory JAMIL PERKINSO Facility:[facility] Start: 02-16-2023 End: 02-16-2023 ambulatory HITESH L MARIA Facility:[facility] Start: 02-12-2023 End: 02-12-2023 ambulatory JAMIL PERKINSO Facility:[facility] Start: 02-06-2023 End: 02-07-2023 ambulatory LORENA RODRIGUEZ Facility:[facility] Start: 02-04-2023 End: 02-04-2023 ambulatory STEPHANIE YOUNG Facility:[facility] Start: 01-30-2023 End: 01-31-2023 ambulatory DOMINGO ROBERTO Facility:[facility] Start: 01-24-2023 End: 01-24-2023 ambulatory HITESH L MARIA Facility:[facility] Start: 01-24-2023 End: 01-24-2023 Patient encounter procedure Alfredo J Perry MD Work Phone: [facility] Procedures Date Procedure Procedure Detail Performing Clinician Start: 01-15-2023 Arthrocentesis aspir &/inj major jt/bursa w/o us Ysabel Dias PA-C Work Phone: Start: 11-27-2022 Screening digital br east tomosynthesis bi Hitesh Maria DO Work Phone: Start: 11-11-2022 Urnls dip stick/tabl et rgnt auto w/o microscopy Joellen Fox CLAIM 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: Start: 10-29-2022 Radiologic exam pelv is compl minimum 3 views Jeremy Chavez MD Work Phone: Start: 10-24-2022 Urnls dip stick/tabl et rgnt auto w/o microscopy Kimber Tello CLAIM 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: Start: 10-23-2022 COVID & INFLUENZA A/ B & RSV NAAT, ROUTINE Kimber Tello CLAIM 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: Start: 10-23-2022 Iadna respiratry pro be & rev trnscr 3-5 targets Kimber Tello CLAIM 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: Start: 10-23-2022 Sars-cov-2 detection by dna/rna Kimber Tello CLAIM 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: Start: 08-08-2022 Us soft tissue head & neck real time imge docm Connie Pickering MD Work Phone: Start: 07-22-2022 Radiologic exam knee complete 4/more views Ben Paulson CLAIM 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: Start: 07-08-2022 Radiologic exam pelv is compl minimum 3 views Jeremy Chavez MD Work Phone: Start: 07-08-2022 Gluc bld gluc mntr d ev cleared fda spec home use Jeremy Chavez MD Work Phone: Start: 05-02-2022 Us soft tissue head & neck real time imge jorge alberto Maria DO Work Phone: Start: 03-14-2022 Brncdilat rspse spmt ry pre&post-brncdilat admn Nya Barba CLAIM 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: Start: 02-24-2022 Urnls dip stick/tabl et rgnt auto w/o microscopy Jeremy Chavez MD Work Phone: Start: 12-23-2021 Dxa bone density marlon dy 1/> sites axial skel Hitesh Maria DO Work Phone: Start: 11-25-2021 EAMON SCREENING W WINSTON Raúl Lynn MD Work Phone: Start: 11-25-2021 Mammography Screen Wst r Start: 11-08-2021 Radex foot complete minimum 3 views Petra Shivam Work Phone: Start: 10-08-2021 Radex foot complete minimum 3 views Hannah Liriano CLAIM 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: Start: 10-08-2021 Urnls dip stick/tabl et rgnt auto w/o microscopy Hannah Liriano CLAIM 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: Start: 06-04-2021 End: 06-04-2021 BP scrn no perf at interval Domingo Andrews PA-C Work Phone: Start: 06-04-2021 End: 06-04-2021 Calc BMI norm parameters Domingo hong PA-C Work Phone: Start: 06-04-2021 End: 06-04-2021 Current tobacco non-user cad cap copd pv dm Domingo Andrews PA-C Work Phone: Start: 06-04-2021 End: 06-04-2021 Docrev cur meds by kye Andrews PA-C Work Phone: Start: 06-04-2021 End: 06-04-2021 Pain doc pos and plan Domingo Nguyen Work Phone: Start: 06-04-2021 End: 06-04-2021 Patient encounter procedure Domingo Andrews PA-C Work Phone: Start: 05-21-2021 End: 05-22-2021 BP scrn no perf at interval Luis Kelley MD Work Phone: Start: 05-21-2021 End: 05-22-2021 Calc BMI norm parameters Luis Espinoza Work Phone: Start: 05-21-2021 End: 05-22-2021 Current tobacco non-user cad cap copd pv dm Luis Kelley MD Work Phone: Start: 05-21-2021 End: 05-22-2021 Docrev cur meds by elig clin Luis Kelley MD Work Phone: Start: 05-21-2021 End: 05-22-2021 Pain doc pos and plan Luis Kelley MD Work Phone: Start: 05-21-2021 End: 05-22-2021 Patient encounter procedure Luis Kelley MD Work Phone: Start: 05-21-2021 End: 05-21-2021 Radex shoulder complete minimum 2 views Luis Kelley MD Work Phone: Start: 05-07-2021 Us soft tissue head & neck real time imge jorge alberto Ladd CLAIM 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: Start: 05-03-2021 Urnls dip stick/tabl et rgnt auto w/o microscopy [facility] Provider Start: 02-07-2021 Radex spine lumbosac ral 2/3 views Boston Morejon MD Work Phone: Start: 02-04-2021 Adult depression screening assessment Julia Castillo PA-C Work Phone: Start: 11-22-2020 Mammography Julia Castillo PA-C Work Phone: Start: 05-22-2009 Colonoscopy Julia Castillo PA-C Work Phone: NEGATED: Highlighted rowStart: 06-04-2021 End: 06-04-2021 Documentation of current medications Dariusz Euceda AT NEGATED: Highlighted rowStart: 05-21-2021 End: 05-21-2021 Documentation of current medications Dariusz Garay AT Plan of Treatment Date Care Activity Detail Author Start: 02-19-2028 Urine microalbumin profile [facility] Start: 01-21-2024 Glaucoma screening Dilated Retinal E xam [facility] Start: 01-13-2024 Annual PCP Team Blood Donor Recruiter katerine Disease Visit Annual PCP Team Chronic Disease Visit [facility] Start: 01-01-2024 BP Controlled (<130/80) BP Controlle d (<130/80) [facility] Start: 12-04-2023 Annual PCP Team Blood Donor Recruiter katerine Disease Visit Annual PCP Team Chronic Disease Visit [facility] Start: 11-28-2023 Mammography Mammogram Screening [facility] Start: 11-28-2023 Screening for malign ant neoplasm of breast Mammogram Screening [facility] Start: 11-12-2023 BP Controlled (<130/80) BP Controlle d (<130/80) [facility] Start: 09-27-2023 3 comp foot exam completed DIABETIC FOOT EXAM [facility] Start: 09-27-2023 ANNUAL PCP TEAM VESSEL LINER KATERINE DISEASE VISIT ANNUAL PCP TEAM CHRONIC DISEASE VISIT [facility] Start: 09-27-2023 BP CONTROLLED (<130/80) BP CONTROLLE D (<130/80) [facility] Start: 09-27-2023 Diabetic foot examination Diabetic F oot Exam [facility] Start: 08-07-2023 ANNUAL PCP TEAM VESSEL LINER KATERINE DISEASE VISIT ANNUAL PCP TEAM CHRONIC DISEASE VISIT [facility] Start: 08-07-2023 BP CONTROLLED (<130/80) BP CONTROLLE D (<130/80) [facility] Start: 07-23-2023 ANNUAL PCP TEAM VESSEL LINER KATERINE DISEASE VISIT ANNUAL PCP TEAM CHRONIC DISEASE VISIT [facility] Start: 06-04-2023 Hepatitis C antibody , confirmatory test DILATED RETINAL EXAM [facility] Start: 05-17-2023 ANNUAL PCP TEAM VESSEL LINER KATERINE DISEASE VISIT ANNUAL PCP TEAM CHRONIC DISEASE VISIT [facility] Start: 05-17-2023 BP CONTROLLED (<130/80) BP CONTROLLE D (<130/80) [facility] Start: 05-10-2023 BP CONTROLLED (<130/80) BP CONTROLLE D (<130/80) [facility] Start: 04-01-2023 BP CONTROLLED (<130/80) BP CONTROLLE D (<130/80) [facility] Start: 03-29-2023 Hemoglobin A1c measurement HbA1C [facility] Start: 03-29-2023 Hemoglobin A1c/Hemoglobin.total in Blood HBA1C [facility] Start: 03-12-2023 ANNUAL PCP TEAM VESSEL LINER KATERINE DISEASE VISIT ANNUAL PCP TEAM CHRONIC DISEASE VISIT [facility] Start: 03-12-2023 BP CONTROLLED (<130/80) BP CONTROLLE D (<130/80) [facility] Start: 03-12-2023 COLORECTAL CANCER SCREENING COLORECTAL CANCER SCREENING [facility] Immunizations Immunization Date Immunization Notes Care Provider Mayra jiang 11-06-2022 COVID-19 vaccine, ag e 12+ yr, season (MODERNA) Joellen Fox CLAIM 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: [facility] 11-01-2021 influenza virus vacc ine, unspecified formulation Jeremy Chavez MD Work Phone: [facility] 10-22-2021 COVID-19 vaccine, ag e 18+ yr, bivalent booster (MODERNA) Stephanie Ladd CLAIM 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: [facility] 11-19-2020 influenza, high dose seasonal, preservative-free Julia Castillo PA-C Work Phone: [facility] Work Phone: 09-21-2020 pneumococcal polysaccharide vaccine, 23 valent Julia Castillo PA-C Work Phone: [facility] Work Phone: 06-06-2020 COVID-19 vaccine, fu ll dose (MODERNA) Julia Castillo PA-C Work Phone: [facility] 05-09-2020 COVID-19 vaccine, fu ll dose (MODERNA) Juliahannah Romanoy PA-C Work Phone: [facility] 12-16-2019 zoster vaccine recombinant Julia Athy PA-C Work Phone: [facility] 10-15-2019 influenza, seasonal, injectable Julia Athy PA-C Work Phone: [facility] 10-06-2019 zoster vaccine recombinant Julia Athy PA-C Work Phone: [facility] 10-05-2019 influenza, seasonal, injectable Julia Athy PA-C Work Phone: [facility] Work Phone: 11-12-2018 influenza virus vacc ine, unspecified formulation Julia Athy PA-C Work Phone: [facility] 11-12-2018 influenza, injectabl e, quadrivalent, contains preservative Julia Athy PA-C Work Phone: [facility] 02-18-2018 tetanus and diphther ia toxoids, adsorbed, preservative free, for adult use (5 Lf of tetanus toxoid and 2 Lf of diphtheria toxoid) Julia Athy PA-C Work Phone: [facility] 11-07-2017 influenza, injectabl e, quadrivalent, contains preservative Julia Athy PA-C Work Phone: [facility] 12-13-2016 influenza, injectabl e, quadrivalent, contains preservative Julia Athy PA-C Work Phone: [facility] Work Phone: 10-10-2016 zoster vaccine, live Julia At hy PA-C Work Phone: [facility] Work Phone: 09-26-2015 influenza virus vacc ine, whole virus Julia Athy PA-C Work Phone: [facility] Work Phone: 09-04-2015 influenza virus vacc ine, unspecified formulation Julia Athy PA-C Work Phone: [facility] 11-02-2014 influenza, seasonal, injectable Julia Athy PA-C Work Phone: [facility] 11-18-2013 influenza, seasonal, injectable Julia Athy PA-C Work Phone: [facility] 08-05-2013 pneumococcal polysaccharide vaccine, 23 valent Julia Athy PA-C Work Phone: [facility] 07-10-2013 pneumococcal conjuga te vaccine, 13 valent Julia Athy PA-C Work Phone: [facility] 12-04-2012 influenza virus vacc ine, unspecified formulation Julia Athy PA-C Work Phone: [facility] Work Phone: 11-15-2011 influenza virus vacc ine, unspecified formulation Julia Athy PA-C Work Phone: [facility] Work Phone: 11-30-2010 influenza virus vacc ine, unspecified formulation Julia Athy PA-C Work Phone: [facility] Work Phone: 11-13-2009 influenza virus vacc ine, unspecified formulation Julia Athy PA-C Work Phone: [facility] 11-04-2008 influenza virus vacc ine, unspecified formulation Julia Athy PA-C Work Phone: [facility] Work Phone: 11-03-2008 influenza virus vacc ine, unspecified formulation Julia Athy PA-C Work Phone: [facility] Work Phone: 05-18-2007 tetanus toxoid, redu coco diphtheria toxoid, and acellular pertussis vaccine, adsorbed Julia Athy PA-C Work Phone: [facility] Work Phone: 12-15-2006 influenza virus vacc ine, unspecified formulation Julia Athy PA-C Work Phone: [facility] 12-09-2005 influenza virus vacc ine, unspecified formulation Julia Athy PA-C Work Phone: [facility] Work Phone: 05-30-1997 diphtheria and tetan us toxoids, adsorbed for pediatric use Julia Athy PA-C Work Phone: [facility] Work Phone: 07-15-1973 diphtheria and tetan us toxoids, adsorbed for pediatric use Julia Athy PA-C Work Phone: [facility] Work Phone: 01-25-1966 diphtheria and tetan us toxoids, adsorbed for pediatric use Julia Athy PA-C Work Phone: [facility] Work Phone: 06-09-1961 trivalent poliovirus vaccine, live, oral Julia Athy PA-C Work Phone: [facility] Work Phone: 04-09-1961 trivalent poliovirus vaccine, live, oral Julia Athy PA-C Work Phone: [facility] Work Phone: 02-09-1961 trivalent poliovirus vaccine, live, oral Julia Athy PA-C Work Phone: [facility] Work Phone: 06-05-1960 diphtheria, tetanus toxoids and pertussis vaccine Julia Athy PA-C Work Phone: [facility] Work Phone: 10-31-1957 diphtheria, tetanus toxoids and pertussis vaccine Julia Athy PA-C Work Phone: [facility] Work Phone: 1955 diphtheria, tetanus toxoids and pertussis vaccine Julia Athy PA-C Work Phone: [facility] Work Phone: Payers Date Payer Category Payer Medicare AETNA MEDICARE A ETNA MEDICARE PPO [id number] 2021 [address] [place] [address] PPO [id number] 2021 Medicare [id number] 2020 Medicare [id number] Social History Date Type Detail Facility Start: 07-27-2012 End: 10-08-2021 Tobacco smoking status NHIS Never smoked tobacco [facility] Start: 05-03-2021 End: 01-24-2023 Alcohol intake Ex-drinker (finding) [facility] Start: 01-28-2021 End: 03-05-2022 History SDOH Alcohol Frequency 1 [facility] Start: 01-28-2021 History SDOH Alcohol Std Drinks 98 [facility] Start: 01-28-2021 End: 03-05-2022 History SDOH Social Connections Phone 4 [facility] Start: 01-28-2021 End: 03-05-2022 History SDOH Social Connections Get Together 3 [facility] Start: 01-28-2021 End: 03-05-2022 History SDOH Social Connections Living 7 [facility] Start: 01-28-2021 End: 03-05-2022 History SDOH Financial 5 [facility] Start: 01-28-2021 End: 03-05-2022 History SDOH Transport Med 2 [facility] Start: 01-22-2019 Education 16 [facility] Start: 1955 Sex Assigned At Female [facility] Start: 01-08-2021 End: 12-27-2021 Exposure to SARS-CoV-2 (event) Not sure [facility] Start: 05-22-2021 End: 06-04-2021 Assertion Unknown if ever smoked [facility] Work Phone: Start: 07-27-2012 End: 10-08-2021 Tobacco use and exposure Smokeless tobacco non-user [facility] Start: 03-05-2022 History SDOH Alcohol Std Drinks 0 [facility] Start: 03-05-2022 End: 06-13-2022 History of Social function [facility] Start: 03-05-2022 End: 06-13-2022 Social connection and isolation panel [facility] Do you belong to any clubs or organizations such as mormon groups, unions, fraternal or athletic groups, or school groups? Yes [facility] Are you now , , , , never or living with a partner? Never [facility] How often to you hav e a drink containing alcohol? Never [facility] How many standard dr inks containing alcohol do you have on a typical day? Patient does not drink [facility] Do you feel stress - tense, restless, nervous, or anxious, or unable to sleep at night because your mind is troubled all the time - these days [OSQ] Not at all [facility] (I/We) worried wheophelia er (my/our) food would run out before (I/we) got money to buy more. Never true [facility] In the past 12 month s, was there a time when you were not able to pay the mortgage or rent on time? No [facility] Start: 09-08-2019 Gender identity Identifies as female gender (finding) [facility] Start: 09-08-2019 Sexual orientation Heterosexual (finding) [facility] Medical Equipment Procedure Code Equipment Code Equipment Origin al Text Equipment Identifier Dates [id number] Implant - [id number] Start: 05-28-2015 Clinical Notes 01-29-2018 to 01-24-2023 Alfredo Perry MD - 01/24/2023 8:41 AM Ysabel Goldberg PA-C - 01/15/2023 10:57 AM Dariusz Reeves MD - 12/31/2022 11:30 AM Hitesh Ashley DO - 12/03/2022 4:23 PM EDT Note Date & Type Note Facility 01-24-2023 History of Present illness Narrative Patient presents with: Mouth/Lip Problem: Possible thrush x 1 week HPI: Feeling like the roof of her mouth is burnt for 1 week, has moved to the throat some. Positive symptoms: sore roof of the mouth, Sore throat, Rhinorrhea, Negative symptoms: Cough, Fever, Chills, OTC: Uses nasonex a couple times per week. PHx of thrush on Cx and feels similar. Home COVID test negative. MEDICATIONS: Current Outpatient Medications Medication Sig estradiol (ESTRACE) 0.01 % (0.1 mg/gram) vaginal cream Use 0.5 g vaginally two times a week. Apply twice weekly to the vaginal opening. gabapentin (NEURONTIN) 300 mg capsule Take 1 capsule by mouth two times a day for 180 days. atorvastatin (LIPITOR) 20 mg tablet Take 1 tablet by mouth once daily. metFORMIN (GLUCOPHAGE) 500 mg tablet Take 1 tablet by mouth once daily. meloxicam (MOBIC) 15 mg tablet TAKE 1 TABLET DAILY WITH FOOD FOR PAIN metaxalone (SKELAXIN) 800 mg tablet Take 0.5-1 tablets by mouth three times daily as needed for pain (or muscle spasms). metFORMIN (GLUCOPHAGE) 500 mg tablet Take 1 tablet by mouth once daily. Calcium Citrate 250 mg calcium tab Take 1 tablet by mouth once daily. tolterodine ER (DETROL LA) 4 mg 24 hr capsule Take 1 capsule by mouth once daily. hydrocortisone 0.5 % ointment Apply to affected area twice daily. albuterol HFA (VENTOLIN HFA) 90 mcg/actuation inhaler Inhale 2 Puffs as instructed every 4 hours as needed. blood sugar diagnostic (BLOOD GLUCOSE TEST) test strip Test blood sugar(s) 1 times daily. Dx: Type 2 DM - Controlled E11.9 Insulin: No Lancets lancets Test blood sugar(s) 1 times daily. Dx: Type 2 DM - Controlled E11.9 Insulin: No ibuprofen (MOTRIN) 200 mg tablet Take 200 mg by mouth every 6 hours as needed. aspirin, enteric coated (ASPIRIN, ENTERIC COATED) 81 mg EC tablet aspirin Aspirin 81 MG PO DAILY September 23, 2018 Active 09-23-2018 [facility] ([id number]) cholecalciferol (VITAMIN D3) 1,000 unit tab tablet cholecalciferol Cholecalciferol (Vit D3) Active 1000 UNIT DAILY September 23, 2018 7:41pm 09-23-2018 [facility] ([id number]) latanoprost (XALATAN) 0.005 % ophthalmic solution Use 1 Drop in both eyes daily at bedtime. glucosamine/msm/chondroitin A (UQAFKMOOHVS-ZFIIPW-ULC ORAL) montelukast (SINGULAIR) 10 mg tablet Take 1 tablet by mouth once daily. mometasone (NASONEX) 50 mcg/actuation nasal spray Use 2 Sprays in the nose once daily. cetirizine (ZYRTEC) 10 mg tablet Take 10 mg by mouth every other day. THERAPEUTIC MULTIVITAMIN TAB Take one (1) tablet daily irbesartan (AVAPRO) 150 mg tablet Take 1 tablet by mouth every morning. No current facility-administered medications for this visit. ALLERGIES: ALLERGIES Allergen Reactions Olmesartan Diarrhea Sulfamethoxazole-Tr* Swelling Tongue swelled. Altace [Ramipril] Swelling Swells up throat. Amlodipine Itching Atenolol Other: See Comments Extremely low pulse Baclofen Intolerance Headache 20 min after taking Cats Swelling irritates eyes,hand swelling Doxycycline GI Upset Fenofibrate Other: See Comments Sore Muscles Lyrica [Pregabalin] Intolerance tongue swelling Pineapple Anaphylaxis throat swells Ragweed Swelling Remeron [Mirtazapin* Other: See Comments Hyperactive and desire to danielle into things Trazodone Other: See Comments Bad Headache Tricor [Fenofibrate* Intolerance muscle pain [place] Swelling Throat and mouth swelling Erythromycin Intolerance turns bright red all over Serzone [Nefazodone* Intolerance States it makes her grouchy Wellbutrin [Bupropi* Intolerance States medication makes her nervous VITALS: BP 136/80 Pulse 69 Temp 36.6 C (97.9 F) Resp 16 Wt 58.1 kg (128 lb) LMP 09/05/2005 SpO2 98% BMI 23.41 kg/m PHYSICAL EXAM: GEN: Pleasant, in no acute distress. HEENT: PERRL, EOMI, conjunctiva clear Sinuses: non-tender frontal sinus, non-tender maxillary sinuses Throat: moist mucous membranes, no oral ulcers, no white patches, no exudate Neck: supple, no thyromegaly, no lymphadenopathy HEART: regular rate and rhythm, no murmurs LUNGS: clear to auscultation, no wheezes or crackles, no increased WOB ASSESSMENT/PLAN: 1. Sore mouth - ICD9: 528.9, ICD10: K13.79 Possible thrush by symptoms. No obvious exam findings to direct diagnosis. Discussed testing and treatment options. She will start antifungal medicine without culture. - CLOTRIMAZOLE 10 MG MICHAEL Alfredo Perry MD documented in this encounter [facility] 01-15-2023 History of Present illness Narrative Associated Order(s): Large Joint Arthro/Inj: R knee joint Post-Procedure Diagnose(s): Effusion of right knee; Chronic patellofemoral pain of right knee Ysabel Dias PA-C Established Patient Department of Orthopaedics Orthopa[facility] [address] [address] Dept: [phone] January 15, 2023 SUBJECTIVE: CHIEF COMPLAINT: Established Patient, Follow Up, and Knee Pain of the Right Knee HPI: Ms. Froy Sharma is a 67 year old female. She has known chronic bilateral patellofemoral pain. She has previously participated in physical therapy. Today she rates her pain a 3 on a scale of 0 to 10 at rest. She states that her right knee has been more painful [place] Her pain increases to a 9/10 with activity. She describes the pain as achy and sharp. She has been using topical roll on medications with relief. She denies any numbness/tingling, weakness, locking/catching or giving out. Past Medical History: PAST MEDICAL HISTORY Diagnosis Date Asthma Breast cancer (HCC) mastectomy, was seeing Masci Cervical stenosis of spine DCIS (ductal carcinoma in situ) 09/201415 grade 3 Delayed emergence from general anesthesia Diabetes mellitus, type II (HCC) Foraminal stenosis of cervical region Dr. Juarez High cholesterol Hypermobility syndrome Hypertension Insomnia Lumbar stenosis Dr. Juarez Malignant hyperthermia Myalgia and myositis, unspecified SAGE (obstructive sleep apnea) 12/03/[address] Motta P[address] Dr. Phelan Right lumbar radiculitis Rotator cuff tear, left Trigeminal neuralgia Past Surgical History: PAST SURGICAL HISTORY Procedure Laterality Date BREAST LUMPECTOMY HX Left 11/2015, 01/2016 CATARACT EXTRACTION HX Bilateral 02/2018, 05/2018 COLONOSCOPY 05/22/2009 [facility] ENDOMETRIAL BIOPSY 05/24/2009 EXTRACTION, ERUPTED TOOTH OR EXPOSED ROOT (ELEVATION AND/OR FORCEPS REMOVAL) 1976 FUSION OF FINGER TENDONS 08/24/2017 4 fingers INTERSTIM,NEUROSTIM 3023 07/17/2022 Interstim lead removal and replacement , Fluoroscopy MASTECTOMY BRA Left 05/2015 MASTECTOMY HX Left 05/28/2015 reconstructed with gel implant MASTOPEXY Right 05/2015 and again Feb 2016 after implant completed NEUROPLASTY &/TRANSPOS MEDIAN NRV CARPAL TUNNE Right 2017 Carpal tunnel decomp NIPPLE/AREOLA RECONSTRUCTION Right 05/2016 PAST SURGICAL HISTORY OF laser surgery right eye to repair blood vessels PAST SURGICAL HISTORY OF several surgeries on feet PAST SURGICAL HISTORY OF 06/2009 Taking Tendon and Making Thumb Ligament (Right Wrist) PAST SURGICAL HISTORY OF 01/2010 Removal of Extra Tendon at Wrist (Right) PAST SURGICAL HISTORY OF Pisform bone right hand PAST SURGICAL HISTORY OF 1985,1987 wrist surgery bilateral PAST SURGICAL HISTORY OF 04/2014 slt on right eye PAST SURGICAL HISTORY OF Right 07/2016 Right trigger finger, [facility] PAST SURGICAL HISTORY OF 2009 D&C, polypectomy for postmenopausal bleeding PAST SURGICAL HISTORY OF 10/10/2020 thumb surgery on right hand at [facility] (fused the thumb) PAST SURGICAL HISTORY OF 06/19/2022 INSERTION STIMULATOR GENERATOR BLADDER REPAIR FINGER TENDON 05/2012 right thumb TONSILLECTOMY PRIMARY/SECONDARY <AGE 12 Tonsillectomy Family History: FAMILY HISTORY Problem Relation Age of Onset Hypertension Mother Anesthesia Mother Stroke Mother Parkinson s Disease Mother Dementia Hypertension Father Blood Disease Father Mylofibrosis Diabetes Sister Heart Sister Myocardial Infarction/Triple Bypass Hypertension Sister other (DCIS) Sister grade 2 Diabetes Sister Cancer Sister melanoma Hypertension Sister Diabetes Maternal Grandmother Diabetes Maternal Grandfather Diabetes Paternal Grandmother Diabetes Paternal Grandfather Diabetes Maternal Aunt other (DCIS) Other Social History: Social History Tobacco Use Smoking status: Never Smokeless tobacco: Never Vaping Use Vaping Use: Never used Substance Use Topics Alcohol use: Not Currently Drug use: Never Medications: Current Outpatient Medications Medication Sig estradiol (ESTRACE) 0.01 % (0.1 mg/gram) vaginal cream Use 0.5 g vaginally two times a week. Apply twice weekly to the vaginal opening. gabapentin (NEURONTIN) 300 mg capsule Take 1 capsule by mouth two times a day for 180 days. atorvastatin (LIPITOR) 20 mg tablet Take 1 tablet by mouth once daily. irbesartan (AVAPRO) 150 mg tablet Take 1 tablet by mouth every morning. metFORMIN (GLUCOPHAGE) 500 mg tablet Take 1 tablet by mouth once daily. meloxicam (MOBIC) 15 mg tablet TAKE 1 TABLET DAILY WITH FOOD FOR PAIN metaxalone (SKELAXIN) 800 mg tablet Take 0.5-1 tablets by mouth three times daily as needed for pain (or muscle spasms). metFORMIN (GLUCOPHAGE) 500 mg tablet Take 1 tablet by mouth once daily. Calcium Citrate 250 mg calcium tab Take 1 tablet by mouth once daily. tolterodine ER (DETROL LA) 4 mg 24 hr capsule Take 1 capsule by mouth once daily. hydrocortisone 0.5 % ointment Apply to affected area twice daily. albuterol HFA (VENTOLIN HFA) 90 mcg/actuation inhaler Inhale 2 Puffs as instructed every 4 hours as needed. blood sugar diagnostic (BLOOD GLUCOSE TEST) test strip Test blood sugar(s) 1 times daily. Dx: Type 2 DM - Controlled E11.9 Insulin: No Lancets lancets Test blood sugar(s) 1 times daily. Dx: Type 2 DM - Controlled E11.9 Insulin: No ibuprofen (MOTRIN) 200 mg tablet Take 200 mg by mouth every 6 hours as needed. aspirin, enteric coated (ASPIRIN, ENTERIC COATED) 81 mg EC tablet aspirin Aspirin 81 MG PO DAILY September 23, 2018 Active 09-23-2018 [facility] ([id number]) cholecalciferol (VITAMIN D3) 1,000 unit tab tablet cholecalciferol Cholecalciferol (Vit D3) Active 1000 UNIT DAILY September 23, 2018 7:41pm 09-23-2018 [facility] ([id number]) latanoprost (XALATAN) 0.005 % ophthalmic solution Use 1 Drop in both eyes daily at bedtime. glucosamine/msm/chondroitin A ([id number]-XPBDQK-FWZ ORAL) montelukast (SINGULAIR) 10 mg tablet Take 1 tablet by mouth once daily. mometasone (NASONEX) 50 mcg/actuation nasal spray Use 2 Sprays in the nose once daily. cetirizine (ZYRTEC) 10 mg tablet Take 10 mg by mouth every other day. THERAPEUTIC MULTIVITAMIN TAB Take one (1) tablet daily No current facility-administered medications for this visit. Allergies: Olmesartan, Sulfamethoxazole-Trimethoprim, Altace [Ramipril], Amlodipine, Atenolol, Baclofen, Cats, Doxycycline, Fenofibrate, Lyrica [Pregabalin], Pineapple, Ragweed, Remeron [Mirtazapine], Trazodone, Tricor [Fenofibrate Micronized], [place], Erythromycin, Serzone [Nefazodone Hcl], and Wellbutrin [Bupropion Hcl] ROS: General: negative for fatigue, malaise, weight loss/gain Musculoskeletal: see HPI Psych: no depression, anxiety OBJECTIVE: Ms. Froy Sharma is a pleasant 67 year old in no apparent distress. Gen:LMP 09/05/2005 nl development, non obese, no deformities ENT: Normocephalic, normal hearing, moist mucosa CV: Pulses:DP/PT= 2+ and symmetric, capillary refill < 2 secs, no peripheral edema/varicosities Skin: no rash, bruising or lesions. Good turgor. Psych: cooperative and appropriate, alert and oriented x 3, good mood and affect. Musculoskeletal: Left knee, bilateral hips and ankles FROM without pain or limitation. RT Knee: Alignment: Varus deformity, Correctable Active Extension 0 and Active Flexion 120 Extension lag: No Pain with ROM: Yes Effusion: Slight Erythema: No Ecchymosis: No Tender to the palpation of lateral patellar facet and inferior patellar pole Pain with patellar compression: No Stability: Anterior/Posterior stable and Varus/Valgus stable Patellofemoral crepitus: Yes Quad Atrophy: No Frannie's: Negative Anterior drawer: Negative IMAGING: Not indicated ASSESSMENT: M25.461 Effusion of right knee (primary encounter diagnosis) M25.561, G89.29 Chronic patellofemoral pain of right knee PLAN: Reviewed images taken previously. Recommendation for acute arthritis flare after injury is repeat corticosteroid injection. Right knee corticosteroid injection agreed upon and administered today. Patient agreeable with plan and will follow up as needed. PROCEDURE: Large Joint Arthro/Inj: R knee joint Informed Consent Consent Obtained: Verbal [place] Protocol A moment to CARE was completed. SIGN IN Personnel directly involved with the procedure wore the appropriate PPE. Special Equipment: N/A Patient/Surrogate Stated/Verified: Patient name, Date of , Relevant allergies and Intended procedure TIME OUT Intended patient and procedure match the source document(s). Consent documented and matches the intended procedure. Relevant labs, photos, and/or imaging studies have been reviewed. Correct side/site marked and visible. Medications required for procedure verified. No fire risk assessment and interventions applicable. No implant(s) inserted. 01/15/2023 11:13 AM The procedure site was prepped in the usual sterile fashion. Site: R knee joint Medications: 12 mg betamethasone acetate-betamethasone sodium phosphate 6 mg/mL Anesthetics: 3 mL lidocaine (PF) 10 mg/mL (1 %) Outcome: Tolerated well, no immediate complications Post-injection instructions were reviewed with the patient and the patient voiced understanding of these instructions. SIGN OUT No instruments, equipment or retained foreign bodies applicable. FOLLOW UP INSTRUCTIONS: As needed Ysabel Dias PA-C documented in this encounter [facility] 12-31-2022 History of Present illness Narrative Female Pelvic Medicine & Reconstructive Surgery Follow-Up Froy Sharma is a 67 year old female, who presents for a follow-up of urinary incontinence. JOSE: 11/05/22 Impression: Froy Sharma is a 67 year old female with Refractory OAB/UUI Lead appropriately positioned per XR, not fractured Impedence check normal Continue on program 4, 0.6 Return to clinic in 3 months History since last visit: Pt had the interstim at 0.8 then decreased after vacation due to feeling a paper inserter the lower back. 0.7 is helping. would like to increase it to 0.8 but the pulsating is too much for her. She is not sure if a different program is needed. If pt waits too long to empty she is concerned her prolapse effects her emptying. Urinary Incontinence: yes, sometimes Voiding Dysfunction: yes, if she waits too long to empty. 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 LMP: Patient's last menstrual period was 09/05/2005.; Menopause yes age 50: Menstrual history: I have confirmed and edited as necessary, the PFSH obtained by others. Dariusz Sharpe MD [employer] Information [employer] offered: Patient accepts, visit chaperoned by Tuyet Roberto RN. OBJECTIVE: LMP 09/05/2005 General: Well appearing, alert, in no acute distress, well-hydrated, well nourished. Abdomen: Abdomen soft, non-tender Pelvic: Ext. Genitalia: No lesions or other abnormalities Vagina: atrophic epithelium POP-Q: Prolapse Noted: Yes Aa = -0.5 Ba = -0.5 C = -5.0 gh = 2.0 pb = 4.0 tvl = 8.0 Ap = -2.0 Bp = -2.0 D = -6.0 Cervix: Normal Urethra: atrophic Program changed from 4, 0.7 to 5, 0.6 Impression: Froy Sharma is a 67 year old female with UUI Program changed from 4, 0.7 to 5, 0.6 If new program not great, she will reach out to [employer] for next set of changes Might consider adding medication back on if still not helping Vaginal atrophy Start estrace 2x/week Recurrent UTI Start estrace as above Follow up in 2-3 months Dariusz Sharpe MD documented in this encounter [facility] 12-24-2022 Miscellaneous Notes Attempted to contact regarding appointment on 01/15/23 with Dariusz HEWITT), and instructed patient return call to office at [phone]. Patient is scheduled to see Dariusz HEWITT) for a Rt Knee F/u. The patient has seen Dariusz HEWITT) in the past for her Lt Knee. Please verify if the patient is seeing Michelle for her Rt or Lt Knee, thank you!. Raisa JOHNSON December 24, 2022 2:45 PM documented in this encounter [facility] 12-19-2022 Miscellaneous Notes Called pt. Verified name/. Message below given and pt verbalizes understanding. Pt had just picked up her Rx. Advised to call office if no improvement with antibiotics. ----- Message from Domingo Roberto APRN.CNP sent at 12/18/2022 12:29 PM EST ----- Hello Triage, Please call this pt and let her know the results of her urine culture are positive and a prescription has been sent to her local pharmacy. Thank you. Tequila Ramirez RN December 19, 2022 10:54 AM Pt with positive urine culture Sensitivities and allergies reviewed. The following approved medication requests have been transmitted electronically. Requested Prescriptions Signed Prescriptions Disp Refills cephALEXin (KEFLEX) 500 mg capsule 14 capsule 0 Sig: Take 1 capsule by mouth two times a day for 7 days. Authorizing Provider: DOMINGO ROBERTO Pharmacy Information Pharmacy Address Telephone [id number] [address] [place] [address] Domingo Roberto APRN.CNP December 18, 2022 12:27 PM documented in this encounter [facility] 12-03-[address] [facility] 12-03-2022 History of Present illness Narrative CC: Froy Sharma is a 67 year old female who presents to the office for sleep concerns. HPI: Sleeping concerns, she doesn't feel that she sleeps well, often waking up in the middle of the night. Sometimes wakes up feeling a little short of breath. Also concerns for sleep apnea and restless legs. She states that she was previously diagnosed with SAGE after 2003, did have health benefits from CPAP or Bipap that she used in the past. Hasn't had CPAP or Bipap recently but is willing to have testing done again and start again since she is struggling with sleep and she is worried about her health risks. 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 Juarez High cholesterol Hypermobility syndrome Hypertension Insomnia Lumbar stenosis Dr. Juarez Malignant hyperthermia Myalgia and myositis, unspecified Other specified glaucoma Dr. Motta Psoriasis Dr. Phelan Right lumbar radiculitis Rotator cuff tear, left Trigeminal neuralgia PAST SURGICAL HISTORY Procedure Laterality Date BREAST LUMPECTOMY HX Left 11/2015, 01/2016 CATARACT EXTRACTION HX Bilateral 02/2018, 05/2018 COLONOSCOPY 05/22/2009 [facility] ENDOMETRIAL BIOPSY 05/24/2009 EXTRACTION, ERUPTED TOOTH OR EXPOSED ROOT (ELEVATION AND/OR FORCEPS REMOVAL) 1977 FUSION OF FINGER TENDONS 08/24/2017 4 fingers INTERSTIM,NEUROSTIM 3023 07/17/2022 Interstim lead removal and replacement , Fluoroscopy MASTECTOMY BRA Left 05/2015 MASTECTOMY HX Left 05/28/2015 reconstructed with gel implant MASTOPEXY Right 05/2015 and again Feb 2016 after implant completed NEUROPLASTY &/TRANSPOS MEDIAN NRV CARPAL TUNNE Right 2017 Carpal tunnel decomp NIPPLE/AREOLA RECONSTRUCTION Right 05/2016 PAST SURGICAL HISTORY OF laser surgery right eye to repair blood vessels PAST SURGICAL HISTORY OF several surgeries on feet PAST SURGICAL HISTORY OF 06/2009 Taking Tendon and Making Thumb Ligament (Right Wrist) PAST SURGICAL HISTORY OF 01/2010 Removal of Extra Tendon at Wrist (Right) PAST SURGICAL HISTORY OF Pisform bone right hand PAST SURGICAL HISTORY OF 1985,1987 wrist surgery bilateral PAST SURGICAL HISTORY OF 04/2014 slt on right eye PAST SURGICAL HISTORY OF Right 07/2016 [facility] trigger finger[facility] PAST SURGICAL HISTORY OF 2009 D&C, polypectomy for postmenopausal bleeding PAST SURGICAL HISTORY OF 10/10/2020 thumb surgery on right hand at [facility] (fused the thumb) PAST SURGICAL HISTORY OF 06/19/2022 INSERTION STIMULATOR GENERATOR BLADDER REPAIR FINGER TENDON 05/2012 right thumb TONSILLECTOMY PRIMARY/SECONDARY <AGE 12 Tonsillectomy Current Outpatient Medications Medication Sig metFORMIN (GLUCOPHAGE) 500 mg tablet Take 1 tablet by mouth once daily. meloxicam (MOBIC) 15 mg tablet TAKE 1 TABLET DAILY WITH FOOD FOR PAIN metaxalone (SKELAXIN) 800 mg tablet Take 0.5-1 tablets by mouth three times daily as needed for pain (or muscle spasms). metFORMIN (GLUCOPHAGE) 500 mg tablet Take 1 tablet by mouth once daily. Calcium Citrate 250 mg calcium tab Take 1 tablet by mouth once daily. tolterodine ER (DETROL LA) 4 mg 24 hr capsule Take 1 capsule by mouth once daily. hydrocortisone 0.5 % ointment Apply to affected area twice daily. albuterol HFA (VENTOLIN HFA) 90 mcg/actuation inhaler Inhale 2 Puffs as instructed every 4 hours as needed. blood sugar diagnostic (BLOOD GLUCOSE TEST) test strip Test blood sugar(s) 1 times daily. Dx: Type 2 DM - Controlled E11.9 Insulin: No cholecalciferol (VITAMIN D3) 1,000 unit tab tablet cholecalciferol Cholecalciferol (Vit D3) Active 1000 UNIT DAILY September 23, 2018 7:41pm 09-23-2018 [facility] ([id number]) latanoprost (XALATAN) 0.005 % ophthalmic solution Use 1 Drop in both eyes daily at bedtime. montelukast (SINGULAIR) 10 mg tablet Take 1 tablet by mouth once daily. mometasone (NASONEX) 50 mcg/actuation nasal spray Use 2 Sprays in the nose once daily. cetirizine (ZYRTEC) 10 mg tablet Take 10 mg by mouth every other day. gabapentin (NEURONTIN) 300 mg capsule Take 1 capsule by mouth two times a day for 180 days. atorvastatin (LIPITOR) 20 mg tablet Take 1 tablet by mouth once daily. irbesartan (AVAPRO) 150 mg tablet Take 1 tablet by mouth every morning. Lancets lancets Test blood sugar(s) 1 times daily. Dx: Type 2 DM - Controlled E11.9 Insulin: No ibuprofen (MOTRIN) 200 mg tablet Take 200 mg by mouth every 6 hours as needed. aspirin, enteric coated (ASPIRIN, ENTERIC COATED) 81 mg EC tablet aspirin Aspirin 81 MG PO DAILY September 23, 2018 Active 09-23-2018 [facility] ([id number]) glucosamine/msm/chondroitin A ([id number]-MPT ORAL) THERAPEUTIC MULTIVITAMIN TAB Take one (1) tablet daily No current facility-administered medications for this visit. ALLERGIES Allergen Reactions Olmesartan Diarrhea Sulfamethoxazole-Tr* Swelling Tongue swelled. Altace [Ramipril] Swelling Swells up throat. Amlodipine Itching Atenolol Other: See Comments Extremely low pulse Baclofen Intolerance Headache 20 min after taking Cats Swelling irritates eyes,hand swelling Doxycycline GI Upset Fenofibrate Other: See Comments Sore Muscles Lyrica [Pregabalin] Intolerance tongue swelling Pineapple Anaphylaxis throat swells Ragweed Swelling Remeron [Mirtazapin* Other: See Comments Hyperactive and desire to danielle into things Trazodone Other: See Comments Bad Headache Tricor [Fenofibrate* Intolerance muscle pain [place] Swelling Throat and mouth swelling Erythromycin Intolerance turns bright red all over Serzone [Nefazodone* Intolerance States it makes her grouchy Wellbutrin [Bupropi* Intolerance States medication makes her nervous Social History Tobacco Use Smoking status: Never Smokeless tobacco: Never Vaping Use Vaping Use: Never used Substance Use Topics Alcohol use: Not Currently Drug use: Never ROS: See HPI PE: BP 136/82 Pulse 80 Temp (Src) 98.2 (Temporal) Resp 16 Wt 132 lb (59.9kg) LMP 09/05/2005 Gen: A&OX3, NAD, non-toxic appearing HEENT: PERRLA, EOMs intact b/l, nares without drainage, pharynx without erythema, exudate, lesions, or drainage. Uvula midline. Neck: No LAD, no thyromegaly, no meningismus. CV: RRR, no murmur Lungs: CTA b/l, no wheezing Skin: No rashes, lesions, or wounds on exposed skin. No edema, normal pulses ASSESSMENT/PLAN: 1. SAGE (obstructive sleep apnea) - ICD9: 327.23, ICD10: G47.33 (primary diagnosis) Concerns that she needs to be restart on CPAP or Bipap. Will need PSG with titration study to determine type of machine and pressure settings and masks. Hx of SAGE - PAP TITRATION PSG (CPAP, BIPAP, ASV) 2. Dyslipidemia - ICD9: 272.4, ICD10: E78.5 - ATORVASTATIN 20 MG TABLET 3. Type 2 diabetes mellitus without complication, without long-term current use of insulin (HCC) - ICD9: 250.00, ICD10: E11.9 4. Sleep disturbances - ICD9: 780.50, ICD10: G47.9 Concerns that she needs to be restart on CPAP or Bipap. Will need PSG with titration study to determine type of machine and pressure settings and masks. Hx of SAGE - PAP TITRATION PSG (CPAP, BIPAP, ASV) 5. Restless legs - ICD9: 333.94, ICD10: G25.81 Concerns that she needs to be restart on CPAP or Bipap. Will need PSG with titration study to determine type of machine and pressure settings and masks. Hx of SAGE. Also concerns for restless legs. - PAP TITRATION PSG (CPAP, BIPAP, ASV) Hitesh Maria DO Return if no improvement. Follow up with Hitesh Maria DO. To ER if develops chest pain, shortness of breath. Discussed risks, benefits, alternatives, and potential side effects of medications. Patient/Guardian expressed understanding and agreed with the plan. See patient instructions. Hitesh Maria DO [address] [place] [address] documented in this encounter [facility] 11-28-2022 Miscellaneous Notes Patient returned call and went over results, notes from Dr Maria with understanding. Left message for return call. Please inform patient that her mammogram is normal/negative. She will need routine screening mammogram in 1 year. Thanks PARIS Dejesus documented in this encounter [facility] 11-27-2022 Miscellaneous Notes Needs appointment to discuss and order. Thank you, Stephanie Young APRN.COOK CANDY Patient calls and states that she talked to her hand doctor and he was encouraging her to get sleep study done again so that she could possible be started on PAP therapy. Patient asking if provider can place these orders? Patient does have fatigue, and does wake up with trouble breathing. Patient also moves around in the bed a lot. Patient aware that provider not in this week. Please review and advise, Beata Shipley RN documented in this encounter [facility] 11-27-2022 Miscellaneous Notes November 27, 2022 PID: [id number] Froy Sharma [address] [place] [address] Dear Ms. Sharma, We are pleased to inform you that the results of your recent breast imaging exam on 11/27/2022 are normal. Early detection of cancer is very important. We also understand recommendations regarding breast cancer screening are controversial. Please discuss with your primary care provider which strategy is best for you and whether a mammogram is right for you. Your imaging studies and report will be kept on file at [facility] as part of your permanent medical record and are available for your continuing care. Thank you for allowing us to help in meeting your health care needs. Sincerely, Dr. Rhodes Interpreting Radiologist [facility] (Normal over 40) documented in this encounter [facility] 11-27-[address] [facility] 11-27-2022 History of Present illness Narrative Radiology Service Progress Note PATIENT NAME: Froy Sharma DATE OF SERVICE: November 27, 2022 TIME: 8:07 AM PATIENT IDENTITY VERIFICATION COMPLETED USING TWO (2) IDENTIFIERS: Name and Date of confirmed by patient verbally. FALL SCREENING: Has the patient had 2 falls in the last year or 1 fall with injury or currently using an Ambulatory Assistive Device (Walker, Cane, Wheelchair, Crutches, etc.)? No PATIENT GENDER DATA: Female. status: : No status: NO. PATIENT RELEVANT IMPLANT DATA REVIEWED: Not Applicable RADIOLOGY DEPARTMENT: Mammography PERIPHERAL IV DATA: Not applicable SIGNED BY: Sy Palacio November 27, 2022 8:07 AM documented in this encounter [facility] 11-26-[address] [facility] 11-26-2022 History of Present illness Narrative VIRTUAL VISIT PROGRESS NOTE This is a virtual visit using [employer] Video Visit. It required patient-provider interaction for the medical decision making as documented below. I have communicated my name and active licensure. The patient's identity and physical location were verified at the time of this visit. Either the patient or their legal signs and displays sales representative has been informed of the risks and benefits of -- and alternatives to -- treatment through a remote evaluation and consents to proceed with the evaluation remotely. Froy Sharma is a 67 year old female seen for urge incontinence. Pt had InterStim placed with Dr. Chavez in 07/2022 - wearing pads during the day and at night - getting up 1-2x/night; sometimes pad will be damp - changing 1 pad per day; (Depends); may be saturated - feels as if she is leaking less in amount - reports her frequency has decreased since her procedure Has changed the program once since her procedure - she believes this was from Program to 3 to 4 Feels as if she is infection free today Cultures - last 3 years CULTURE 11/11/2022 >=100,000 CFU/ml Escherichia coli(A) 10/24/2022 50,000-<100,000 CFU/ml Escherichia coli(A) 10/24/2022 Mixed microbiota, including predominantly: 03/25/2022 >=100,000 CFU/ml Citrobacter freundii complex(A) 11/02/2021 >=100,000 CFU/ml Klebsiella oxytoca(A) HISTORY REVIEWED (electronic chart updated): PAST MEDICAL HISTORY Diagnosis Date Asthma Breast cancer (HCC) mastectomy, was seeing Masci Cervical stenosis of spine DCIS (ductal carcinoma in situ) 09/201415 grade 3 Delayed emergence from general anesthesia Diabetes mellitus, type II (HCC) Foraminal stenosis of cervical region Dr. Juarez High cholesterol Hypermobility syndrome Hypertension Insomnia Lumbar stenosis Dr. Juarez Malignant hyperthermia Myalgia and myositis, unspecified Other specified glaucoma Dr. Motta Psoriasis Dr. Phelan Right lumbar radiculitis Rotator cuff tear, left Trigeminal neuralgia PAST SURGICAL HISTORY Procedure Laterality Date BREAST LUMPECTOMY HX Left 11/2015, 01/2016 CATARACT EXTRACTION HX Bilateral 02/2018, 05/2018 COLONOSCOPY 05/22/2009 [facility] ENDOMETRIAL BIOPSY 05/24/2009 EXTRACTION, ERUPTED TOOTH OR EXPOSED ROOT (ELEVATION AND/OR FORCEPS REMOVAL) 1976 FUSION OF FINGER TENDONS 08/24/2017 4 fingers INTERSTIM,NEUROSTIM 3023 07/17/2022 Interstim lead removal and replacement , Fluoroscopy MASTECTOMY BRA Left 05/2015 MASTECTOMY HX Left 05/28/2015 reconstructed with gel implant MASTOPEXY Right 05/2015 and again Feb 2016 after implant completed NEUROPLASTY &/TRANSPOS MEDIAN NRV CARPAL TUNNE Right 2017 Carpal tunnel decomp NIPPLE/AREOLA RECONSTRUCTION Right 05/2016 PAST SURGICAL HISTORY OF laser surgery right eye to repair blood vessels PAST SURGICAL HISTORY OF several surgeries on feet PAST SURGICAL HISTORY OF 06/2009 Taking Tendon and Making Thumb Ligament (Right Wrist) PAST SURGICAL HISTORY OF 01/2010 Removal of Extra Tendon at Wrist (Right) PAST SURGICAL HISTORY OF Pisform bone right hand PAST SURGICAL HISTORY OF 1985,1987 wrist surgery bilateral PAST SURGICAL HISTORY OF 04/2014 slt on right eye PAST SURGICAL HISTORY OF Right 07/2016 Right trigger finger, [facility] PAST SURGICAL HISTORY OF 2009 D&C, polypectomy for postmenopausal bleeding PAST SURGICAL HISTORY OF 10/10/2020 thumb surgery on right hand at [facility] (fused the thumb) PAST SURGICAL HISTORY OF 06/19/2022 INSERTION STIMULATOR GENERATOR BLADDER REPAIR FINGER TENDON 05/2012 right thumb TONSILLECTOMY PRIMARY/SECONDARY <AGE 12 Tonsillectomy FAMILY HISTORY Problem Relation Age of Onset Hypertension Mother Anesthesia Mother Stroke Mother Parkinson s Disease Mother Dementia Hypertension Father Blood Disease Father Mylofibrosis Diabetes Sister Heart Sister Myocardial Infarction/Triple Bypass Hypertension Sister other (DCIS) Sister grade 2 Diabetes Sister Cancer Sister melanoma Hypertension Sister Diabetes Maternal Grandmother Diabetes Maternal Grandfather Diabetes Paternal Grandmother Diabetes Paternal Grandfather Diabetes Maternal Aunt other (DCIS) Other Social History Tobacco Use Smoking status: Never Smokeless tobacco: Never Vaping Use Vaping Use: Never used Substance Use Topics Alcohol use: Not Currently Drug use: Never Current Outpatient Medications Medication Sig metFORMIN (GLUCOPHAGE) 500 mg tablet Take 1 tablet by mouth once daily. irbesartan (AVAPRO) 150 mg tablet Take 1 tablet by mouth every morning. meloxicam (MOBIC) 15 mg tablet TAKE 1 TABLET DAILY WITH FOOD FOR PAIN atorvastatin (LIPITOR) 20 mg tablet Take 1 tablet by mouth once daily. metaxalone (SKELAXIN) 800 mg tablet Take 0.5-1 tablets by mouth three times daily as needed for pain (or muscle spasms). gabapentin (NEURONTIN) 300 mg capsule Take 1 capsule by mouth twice daily for 180 days. metFORMIN (GLUCOPHAGE) 500 mg tablet Take 1 tablet by mouth once daily. Calcium Citrate 250 mg calcium tab Take 1 tablet by mouth once daily. tolterodine ER (DETROL LA) 4 mg 24 hr capsule Take 1 capsule by mouth once daily. hydrocortisone 0.5 % ointment Apply to affected area twice daily. albuterol HFA (VENTOLIN HFA) 90 mcg/actuation inhaler Inhale 2 Puffs as instructed every 4 hours as needed. blood sugar diagnostic (BLOOD GLUCOSE TEST) test strip Test blood sugar(s) 1 times daily. Dx: Type 2 DM - Controlled E11.9 Insulin: No Lancets lancets Test blood sugar(s) 1 times daily. Dx: Type 2 DM - Controlled E11.9 Insulin: No ibuprofen (MOTRIN) 200 mg tablet Take 200 mg by mouth every 6 hours as needed. aspirin, enteric coated (ASPIRIN, ENTERIC COATED) 81 mg EC tablet aspirin Aspirin 81 MG PO DAILY September 23, 2018 Active 09-23-2018 [facility] ([id number]) cholecalciferol (VITAMIN D3) 1,000 unit tab tablet cholecalciferol Cholecalciferol (Vit D3) Active 1000 UNIT DAILY September 23, 2018 7:41pm 09-23-2018 [facility] ([id number]) latanoprost (XALATAN) 0.005 % ophthalmic solution Use 1 Drop in both eyes daily at bedtime. glucosamine/msm/chondroitin A ([id number]-CSL ORAL) montelukast (SINGULAIR) 10 mg tablet Take 1 tablet by mouth once daily. mometasone (NASONEX) 50 mcg/actuation nasal spray Use 2 Sprays in the nose once daily. cetirizine (ZYRTEC) 10 mg tablet Take 10 mg by mouth every other day. THERAPEUTIC MULTIVITAMIN TAB Take one (1) tablet daily No current facility-administered medications for this visit. ALLERGIES Allergen Reactions Olmesartan Diarrhea Sulfamethoxazole-Tr* Swelling Tongue swelled. Altace [Ramipril] Swelling Swells up throat. Amlodipine Itching Atenolol Other: See Comments Extremely low pulse Baclofen Intolerance Headache 20 min after taking Cats Swelling irritates eyes,hand swelling Doxycycline GI Upset Fenofibrate Other: See Comments Sore Muscles Lyrica [Pregabalin] Intolerance tongue swelling Pineapple Anaphylaxis throat swells Ragweed Swelling Remeron [Mirtazapin* Other: See Comments Hyperactive and desire to danielle into things Trazodone Other: See Comments Bad Headache Tricor [Fenofibrate* Intolerance muscle pain [place] Swelling Throat and mouth swelling Erythromycin Intolerance turns bright red all over Serzone [Nefazodone* Intolerance States it makes her grouchy Wellbutrin [Bupropi* Intolerance States medication makes her nervous REVIEW OF SYSTEMS: GENERAL: feeling well without fatigue, no recent change in weight RESPIRATORY: no cough, no wheezing or shortness of breath CARDIOVASCULAR: no chest pain, no palpitations GI: normal appetite and tolerating PO well : see HPI MUSCULOSKELETAL: arthritis pain PHYSICAL EXAMINATION: VIDEO EXAM: (if completed, performed via video enabled technology) No exam performed ASSESSMENT: (N39.0) Frequent UTI (primary encounter diagnosis) (R35.0) Urinary frequency (N39.41) Urge incontinence PLAN: Urge incontinence/Frequency - InterStim in place Frequent UTI - standing urine cx F/U as scheduled with Dr. Sharpe and Kathy I spent a total of 35 minutes on the date of the service which included preparing to see the patient, completing clinical documentation, counseling and educating the patient/family/caregiver, and ordering medications, tests, or procedures Domingo Roberto APRN.COOK CANDY documented in this encounter [facility] 11-11-[address] [facility] 11-11-2022 History of Present illness Narrative This note was created using [employer]. Subjective Froy Sharma is a 67 year old female. 67 year old female with PMH overactive bladder with bladder stimulator in place, fibromyalgia, DM, hyperlipidemia, HTN, MVP, Dulce Maria-Danlos, OA presents for complaints of urinary symptoms. Recurrent in nature. This bout started 3 to 4 days ago +urinary frequency +burning +foul odor smells like brown sugar Hesitancy Denies vaginal bleeding. Denies vaginal discharge. Denies fever or chills Denies recent coitus. Has tried cranberry juice without relief. Has urologist, Dr. Smith JOSE 11/05/22 Last urine culture 10/24/22 with e.coli and placed on Macrobid. The history is provided by the patient. No foreign language stenographer was used. UTI This is a recurrent problem. The current episode started more than 2 days ago. The problem occurs every urination. The problem has been gradually worsening. The quality of the pain is described as burning. The pain is at a severity of 5/10. The pain is moderate. There has been no fever. She is Not sexually active. There is No history of pyelonephritis. Associated symptoms include frequency, hesitancy and urgency. Pertinent negatives include no chills, no sweats, no nausea, no vomiting, no discharge, no hematuria, no possible and no flank pain. Treatments tried: cranberry juice. Her past medical history is significant for urological procedure and recurrent UTIs. Her past medical history does not include kidney stones, single kidney, urinary stasis or catheterization. 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 Juarez High cholesterol Hypermobility syndrome Hypertension Insomnia Lumbar stenosis Dr. Juarez Malignant hyperthermia Myalgia and myositis, unspecified Other specified glaucoma Dr. Motta Psoriasis Dr. Phelan Right lumbar radiculitis Rotator cuff tear, left Trigeminal neuralgia PAST SURGICAL HISTORY Procedure Laterality Date BREAST LUMPECTOMY HX Left 11/2015, 01/2016 CATARACT EXTRACTION HX Bilateral 02/2018, 05/2018 COLONOSCOPY 05/22/2009 [facility] ENDOMETRIAL BIOPSY 05/24/2009 EXTRACTION, ERUPTED TOOTH OR EXPOSED ROOT (ELEVATION AND/OR FORCEPS REMOVAL) 1976 FUSION OF FINGER TENDONS 08/24/2017 4 fingers INTERSTIM,NEUROSTIM 3023 07/17/2022 Interstim lead removal and replacement , Fluoroscopy MASTECTOMY BRA Left 05/2015 MASTECTOMY HX Left 05/28/2015 reconstructed with gel implant MASTOPEXY Right 05/2015 and again Feb 2016 after implant completed NEUROPLASTY &/TRANSPOS MEDIAN NRV CARPAL TUNNE Right 2017 Carpal tunnel decomp NIPPLE/AREOLA RECONSTRUCTION Right 05/2016 PAST SURGICAL HISTORY OF laser surgery right eye to repair blood vessels PAST SURGICAL HISTORY OF several surgeries on feet PAST SURGICAL HISTORY OF 06/2009 Taking Tendon and Making Thumb Ligament (Right Wrist) PAST SURGICAL HISTORY OF 01/2010 Removal of Extra Tendon at Wrist (Right) PAST SURGICAL HISTORY OF Pisform bone right hand PAST SURGICAL HISTORY OF 1985,1987 wrist surgery bilateral PAST SURGICAL HISTORY OF 04/2014 slt on right eye PAST SURGICAL HISTORY OF Right 07/2016 Right trigger finger, [facility] PAST SURGICAL HISTORY OF 2009 D&C, polypectomy for postmenopausal bleeding PAST SURGICAL HISTORY OF 10/10/2020 thumb surgery on right hand at [facility] (fused the thumb) PAST SURGICAL HISTORY OF 06/19/2022 INSERTION STIMULATOR GENERATOR BLADDER REPAIR FINGER TENDON 05/2012 right thumb TONSILLECTOMY PRIMARY/SECONDARY <AGE 12 Tonsillectomy ALLERGIES Olmesartan, Sulfamethoxazole-Trimethoprim, Altace [Ramipril], Amlodipine, Atenolol, Baclofen, Cats, Doxycycline, Fenofibrate, Lyrica [Pregabalin], Pineapple, Ragweed, Remeron [Mirtazapine], Trazodone, Tricor [Fenofibrate Micronized], [place], Erythromycin, Serzone [Nefazodone Hcl], and Wellbutrin [Bupropion Hcl] MEDICATIONS metFORMIN (GLUCOPHAGE) 500 mg tablet Take 1 tablet by mouth once daily. meloxicam (MOBIC) 15 mg tablet TAKE 1 TABLET DAILY WITH FOOD FOR PAIN atorvastatin (LIPITOR) 20 mg tablet Take 1 tablet by mouth once daily. metaxalone (SKELAXIN) 800 mg tablet Take 0.5-1 tablets by mouth three times daily as needed for pain (or muscle spasms). gabapentin (NEURONTIN) 300 mg capsule Take 1 capsule by mouth twice daily for 180 days. metFORMIN (GLUCOPHAGE) 500 mg tablet Take 1 tablet by mouth once daily. Calcium Citrate 250 mg calcium tab Take 1 tablet by mouth once daily. tolterodine ER (DETROL LA) 4 mg 24 hr capsule Take 1 capsule by mouth once daily. hydrocortisone 0.5 % ointment Apply to affected area twice daily. albuterol HFA (VENTOLIN HFA) 90 mcg/actuation inhaler Inhale 2 Puffs as instructed every 4 hours as needed. blood sugar diagnostic (BLOOD GLUCOSE TEST) test strip Test blood sugar(s) 1 times daily. Dx: Type 2 DM - Controlled E11.9 Insulin: No Lancets lancets Test blood sugar(s) 1 times daily. Dx: Type 2 DM - Controlled E11.9 Insulin: No ibuprofen (MOTRIN) 200 mg tablet Take 200 mg by mouth every 6 hours as needed. aspirin, enteric coated (ASPIRIN, ENTERIC COATED) 81 mg EC tablet aspirin Aspirin 81 MG PO DAILY September 23, 2018 Active 09-23-2018 [facility] ([id number]) cholecalciferol (VITAMIN D3) 1,000 unit tab tablet cholecalciferol Cholecalciferol (Vit D3) Active 1000 UNIT DAILY September 23, 2018 7:41pm 09-23-2018 [facility] ([id number]) latanoprost (XALATAN) 0.005 % ophthalmic solution Use 1 Drop in both eyes daily at bedtime. glucosamine/msm/chondroitin A ([id number] ORAL) montelukast (SINGULAIR) 10 mg tablet Take 1 tablet by mouth once daily. mometasone (NASONEX) 50 mcg/actuation nasal spray Use 2 Sprays in the nose once daily. cetirizine (ZYRTEC) 10 mg tablet Take 10 mg by mouth every other day. THERAPEUTIC MULTIVITAMIN TAB Take one (1) tablet daily cephALEXin (KEFLEX) 500 mg capsule Take 1 capsule by mouth two times a day for 7 days. irbesartan (AVAPRO) 150 mg tablet Take 1 tablet by mouth every morning. FAMILY HISTORY Problem Relation Age of Onset Hypertension Mother Anesthesia Mother Stroke Mother Parkinson s Disease Mother Dementia Hypertension Father Blood Disease Father Mylofibrosis Diabetes Sister Heart Sister Myocardial Infarction/Triple Bypass Hypertension Sister other (DCIS) Sister grade 2 Diabetes Sister Cancer Sister melanoma Hypertension Sister Diabetes Maternal Grandmother Diabetes Maternal Grandfather Diabetes Paternal Grandmother Diabetes Paternal Grandfather Diabetes Maternal Aunt other (DCIS) Other Social History Tobacco Use Smoking status: Never Smokeless tobacco: Never Vaping Use Vaping Use: Never used Substance Use Topics Alcohol use: Not Currently Drug use: Never Review of Systems Constitutional: Negative for chills, fatigue and fever. Respiratory: Negative for apnea, cough, choking and chest tightness. Cardiovascular: Negative for chest pain, palpitations and leg swelling. Gastrointestinal: Negative for abdominal pain, diarrhea, nausea and vomiting. Genitourinary: Positive for dysuria, frequency, hesitancy and urgency. Negative for flank pain, hematuria, vaginal bleeding, vaginal discharge and vaginal pain. Musculoskeletal: Negative for arthralgias, back pain and gait problem. Skin: Negative for color change, pallor, rash and wound. Allergic/Immunologic: Negative for environmental allergies, food allergies and immunocompromised state. Neurological: Negative for dizziness, facial asymmetry, light-headedness and headaches. Hematological: Negative for adenopathy. Does not bruise/bleed easily. Psychiatric/Behavioral: Negative for agitation and behavioral problems. Objective LMP 09/05/2005 BP 110/62 Pulse 78 Temp 36.6 C (97.9 F) Resp 16 Wt 58.8 kg (129 lb 9.6 oz) LMP 09/05/2005 SpO2 97% BMI 23.70 kg/m Physical Exam Vitals and nursing note reviewed. Constitutional: General: She is not in acute distress. Appearance: Normal appearance. She is normal weight. She is not ill-appearing, toxic-appearing or diaphoretic. HENT: Head: Normocephalic and atraumatic. Right Ear: Ear canal and external ear normal. Left Ear: Ear canal and external ear normal. Nose: Nose normal. No congestion or rhinorrhea. Mouth/Throat: Mouth: Mucous membranes are moist. Pharynx: No oropharyngeal exudate or posterior oropharyngeal erythema. Eyes: General: Right eye: No discharge. Left eye: No discharge. Extraocular Movements: Extraocular movements intact. Conjunctiva/sclera: Conjunctivae normal. Pupils: Pupils are equal, round, and reactive to light. Cardiovascular: Rate and Rhythm: Normal rate and regular rhythm. Pulses: Normal pulses. Heart sounds: Normal heart sounds. No murmur heard. No friction rub. Pulmonary: Effort: Pulmonary effort is normal. No respiratory distress. Breath sounds: Normal breath sounds. No stridor. No wheezing, rhonchi or rales. Chest: Chest wall: No tenderness. Abdominal: General: Abdomen is flat. There is no distension. Palpations: Abdomen is soft. There is no mass. Tenderness: There is no abdominal tenderness. There is no right CVA tenderness, left CVA tenderness, guarding or rebound. Hernia: No hernia is present. Musculoskeletal: General: No swelling, tenderness, deformity or signs of injury. Normal range of motion. Cervical back: Normal range of motion and neck supple. No rigidity. Right lower leg: No edema. Left lower leg: No edema. Lymphadenopathy: Cervical: No cervical adenopathy. Skin: General: Skin is warm and dry. Capillary Refill: Capillary refill takes less than 2 seconds. Coloration: Skin is not jaundiced or pale. Findings: No bruising, erythema, lesion or rash. Neurological: General: No focal deficit present. Mental Status: She is alert and oriented to person, place, and time. Cranial Nerves: No cranial nerve deficit. Sensory: No sensory deficit. Motor: No weakness. Coordination: Coordination normal. Gait: Gait normal. Psychiatric: Mood and Affect: Mood normal. Behavior: Behavior normal. Thought Content: Thought content normal. Judgment: Judgment normal. Assessment and Plan ASSESSMENT/PLAN: 1. Dysuria - ICD9: 788.1, ICD10: R30.0 X 2 to 3 days History of recurrent infections. History of OAB and with bladder stimulator recurrent - UA positive for jessica esterase, hematuria, and proteinuria - Send urine for culture - Begin treatment with Keflex for 7 days (Patient was treated 10/24/22 with Macrobid for e.coli) - Patient education for prevention given Follow up with urology - UA DIP, URINE (POC) Joellen Fxo APRN.COOK CANDY documented in this encounter [facility] 11-05-[address] [facility] 11-03-2022 Miscellaneous Notes Triage protocol recommended: ER now due to palpitations and chest tightness and >60 years of age. Pt states she has a friend that can take her to ER. Reason for Disposition Sounds like a life-threatening emergency to the triager Answer Assessment - Initial Assessment Questions 1. DESCRIPTION: Reports fluctuating heart rate over last couple of days ranging from 59-123, with tightness in chest and feels like heart is pounding at times. Patient reports she had heart palpitations last night while resting in bed. Manning slight tightness in chest as well. Also reports she could hear her neighbor's loud tv last night and that was causing her stress. Reports heart palpitations again this afternoon for several hours, continuing during this call. Having chest tightness currently as well. Reports has Apple Watch which states her rate has been going up and down today and yesterday, ranging from 59-123. Currently 77-82. Has woke up in mornings with headaches at times for the last couple of months. States does not see cardiology. Last EKG was 1 year ago-was normal. Reports has heart valve issue and being monitored by PCP. 2. ONSET: 11/02 3. DURATION: > 1 hour last night and for several hours today and continuing now 4. PATTERN: comes and goes 5. TAP: not completed 6. HEART RATE: currently Apple watch states heart rate is 77-82 7. RECURRENT SYMPTOM: reports history of palpitations 8. CAUSE: Pt unsure if stress, reports stress with house cleaning and not sleeping well last night, neighbors tv loud last 2 days, estate meeting with family keeps changing-states it's kind of a mess 9. CARDIAC HISTORY: see history 10. OTHER SYMPTOMS: No dizziness, no chest pain (but has tightness), no sweating, and no difficulty breathing Denies pain in one arm or in jaw. Denies current SOB, dizziness or weakness. No swelling in legs or feet. No recent exercising or strenuous activity. Protocols used: Heart Rate and Heartbeat [id number] documented in this encounter [facility] 10-31-2022 Miscellaneous Notes OUTGOING TELEPHONE CALL Telephone call to discuss Xray results Interstim lead and generator look like they are in the correct location. Patient reports that she had the program changes last week and her symptoms have improved. She has an appointment with Dr. Sharpe on 11/05 and will follow-up then. Urogynecology [facility] Main provided: or Urogynecology [facility] provided: Jeremy Chavez Staff Physician, Department of Urogynecology and Pelvic Floor Disorders documented in this encounter [facility] 10-29-[address] [facility] 10-29-2022 History of Present illness Narrative Radiology Service Progress Note PATIENT NAME: Froy Sharma DATE OF SERVICE: October 29, 2022 TIME: 10:53 AM PATIENT IDENTITY VERIFICATION COMPLETED USING TWO (2) IDENTIFIERS: Name and Date of confirmed by patient verbally. FALL SCREENING: Has the patient had 2 falls in the last year or 1 fall with injury or currently using an Ambulatory Assistive Device (Walker, Cane, Wheelchair, Crutches, etc.)? No PATIENT GENDER DATA: Female. status: : No status: NO. PATIENT RELEVANT IMPLANT DATA REVIEWED: Yes RADIOLOGY DEPARTMENT: General X-ray: Exam(s) Completed: Pelvis X-Ray: Pelvis General AP and Pelvis inlet/outlet and lateral pelvis PERIPHERAL IV DATA: Not applicable SIGNED BY: RT Reina(R) October 29, 2022 10:53 AM documented in this encounter [facility] 10-28-2022 Miscellaneous Notes OUTGOING TELEPHONE CALL Telephone call to discuss Interstim. Patient reports fall on 10/15/2022 while on vacation and then had UUI throughout vacation. She has turned down the stimulation on her device because it was hurting her hip. Order placed for lateral and A/P X rays to look at leads and compare to prior leads.. Pt was also diagnosed with a UTI so she starting taking Macrobid. Also encouraged her to reach out to Interstim rep to adjust programs. Jeremy Chavez Staff Physician, Department of Urogynecology and Pelvic Floor Disorders documented in this encounter [facility] 10-27-2022 Miscellaneous Notes Pt returned call and given provider's message below with verbalized understanding. Left message for patient to return call. Pari Del Valle Urine culture grew sufficient bacteria to be treated with antibiotic. Nitrofurantoin has been sent to the pharmacy. She may start it if still having urinary symptoms. documented in this encounter [facility] 10-24-[address] [facility] 10-24-2022 History of Present illness Narrative CC: Patient presents with: Urinary Problem: Frequency, burning x 3 days HPI Froy Sharma is a 67 year old female who presents with complaint of possible UTI. These symptoms have been present for 3 days. Associated symptoms: hesitancy, burning, urgency, and frequency Denies: foul smelling urine, backpain, hematuria, pressure, fever, chills, abdominal pain, decreased urine output, nausea, vomiting, and flank pain Treatments: nothing Patient has an Interstim device and has noticed more urinary leakage despite turning it up more. She had messaged her urologist about this today but has not responded yet. Denies any recent urinary procedures or catheretization. She was seen here yesterday for cold symptoms, swab for COVID, RSV and influenza were negative. The ROS was otherwise negative. PMH, Medications, labs, allergies, and recent past visits with PCP were reviewed and updated as able. PHYSICAL EXAM: BP 136/78 Pulse 79 Temp 37 C (98.6 F) Resp 22 Wt 59.8 kg (131 lb 12.8 oz) LMP 09/05/2005 SpO2 100% BMI 24.11 kg/m General: Well appearing and alert CV: Regular rate and rhythm without obvious murmur Lungs: clear to auscultation bilaterally Back: no CVA tenderness Abdomen: soft, nontender, nondistended ASSESSMENT/PLAN: 1. Burning with urination - ICD9: 788.1, ICD10: R30.0 - UA DIP, URINE (POC) positive for 15 ketones - send URINE CULTURE - recommend treatment with antibiotics instead of waiting for culture. Patient declined antibiotics at this time. [facility] any worsening symptoms. She will be contacted with urine culture results Prescription instructions reviewed with patient as applicable. Potential red flag symptoms discussed with the patient. Reviewed appropriate action plan to take if red flag symptoms occur. Patient agreeable to treatment plan. Martha Carrasco APRN.CNP documented in this encounter [facility] 10-23-2022 Instructions Kimber Tello APRN.CNP - 10/23/2022 4:16 PM EDT ASSESSMENT/PLAN: 1. Sore throat - ICD9: 462, ICD10: J02.9 (primary diagnosis) - suspect viral - COVD/flu/RSV sent - Discussed supportive care treatment with fluids, rest and analgesia. - The patient may also use OTC decongestants prn, OTC cough and cold meds as needed, and warm salt water gargles, throat lozenges and/or OTC throat spray as needed. - The patient should follow up in 3-5 days if symptoms persist or worsen - COVID & INFLUENZA A/B & RSV NAAT, ROUTINE - COVID NAAT, UPPER RESPIRATORY, ROUTINE - ROUTINE FLU A/B + RSV 2. Left hip pain - ICD9: 719.45, ICD10: M25.552 - XR negative: IMPRESSION: No acute bony finding. 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 - Discussed supportive care treatment with fluids, rest and analgesia. - Discussed expected course of illness TEACHING PROVIDER (Physician/PA/CLAIM SPECIALIST) NOTE OF PERSONAL INVOLVEMENT IN CARE: I have personally seen and examined the patient and performed the medical decision-making components. I have reviewed the Advanced Practice Registered Nurse (CLAIM SPECIALIST) Student's documentation and verified the findings in the note as written. Any additions or changes are noted in bold/italics. Signature: Kimber Tello Date: 10/23/2022 Time: 4:14 PM CONTUSIONS GENERAL INFORMATION: A contusion, or bruise, is caused by an injury that does not break the skin. Bleeding under the skin causes it to look black and blue. It may take 2 or 3 weeks for the bruising to disappear. INSTRUCTIONS: 1. You may continue your normal daily activities as tolerated. Rest the injured area as much as possible. 2. Apply ice to the injury for 15 minutes each hour (while awake) for the first two days. Put the ice in a plastic bag and place a thin towel between the bag of ice and your skin. 3. After the first 1 to 2 days, you may apply heat to the injury to help relieve pain. You may use a warm heating pad, whirlpool bath, or warm moist towels for 15-20 minutes every hour (while awake) for 48 hours. 4. You may use medicines for pain such as acetaminophen, ibuprofen or aspirin (unless otherwise instructed by your physician). CONTACT YOUR DOCTOR OR RETURN TO THE ED IF: 1. Your pain becomes worse. 2. You develop a temperature over 101 F (38.3 C). 3. The swelling increases greatly in the area of the bruise. 4. Redness or lines of redness develop in the area of the bruise. documented in this encounter [facility] 10-23-[address] [facility] 10-23-[address] [facility] 10-23-2022 History of Present illness Narrative Images from the original note were not included. This note was created using [employer]. Subjective Froy Sharma is a 67 year old female. Patient presents after having a fall six days ago while traveling in [place]. She tripped over luggage and landed on her left hip. She denies hitting her head or loss of consciousness. She has been ambulating independently since the fall, but reports 7/10 sore aching pain not relieved by Mobic or Advil. She denies any numbness or tingling. She also reports mild upper respiratory symptoms for five days. Most bothersome is an intermittent sore throat. She denies known exposure to illness but has been traveling by train from [place]. The history is provided by the patient. Trauma Associated symptoms include congestion, coughing and a sore throat. Pertinent negatives include no abdominal pain, chest pain, chills, fever, headaches, nausea or vomiting. Review of Systems Constitutional: Negative for chills and fever. HENT: Positive for congestion, sinus pressure and sore throat. Respiratory: Positive for cough. Negative for shortness of breath and wheezing. Cardiovascular: Negative for chest pain. Gastrointestinal: Negative for abdominal pain, diarrhea, nausea and vomiting. Neurological: Negative for headaches. All other systems reviewed and are negative. Objective BP 142/90 Pulse 76 Temp 37.3 C (99.1 F) Resp 21 Wt 59.5 kg (131 lb 3.2 oz) LMP 09/05/2005 SpO2 98% BMI 24.00 kg/m PAST MEDICAL HISTORY Diagnosis Date Asthma Breast cancer (HCC) mastectomy, was seeing Masci Cervical stenosis of spine DCIS (ductal carcinoma in situ) 09/201415 grade 3 Delayed emergence from general anesthesia Diabetes mellitus, type II (HCC) Foraminal stenosis of cervical region Dr. Juarez High cholesterol Hypermobility syndrome Hypertension Insomnia Lumbar stenosis Dr. Juarez Malignant hyperthermia Myalgia and myositis, unspecified Other specified glaucoma Dr. Motta Psoriasis Dr. Phelan Right lumbar radiculitis Rotator cuff tear, left Trigeminal neuralgia PAST SURGICAL HISTORY Procedure Laterality Date BREAST LUMPECTOMY HX Left 11/2015, 01/2016 CATARACT EXTRACTION HX Bilateral 02/2018, 05/2018 COLONOSCOPY 05/22/2009 [facility] ENDOMETRIAL BIOPSY 05/24/2009 EXTRACTION, ERUPTED TOOTH OR EXPOSED ROOT (ELEVATION AND/OR FORCEPS REMOVAL) 1976 FUSION OF FINGER TENDONS 08/24/2017 4 fingers INTERSTIM,NEUROSTIM 3023 07/17/2022 Interstim lead removal and replacement , Fluoroscopy MASTECTOMY BRA Left 05/2015 MASTECTOMY HX Left 05/28/2015 reconstructed with gel implant MASTOPEXY Right 05/2015 and again Feb 2016 after implant completed NEUROPLASTY &/TRANSPOS MEDIAN NRV CARPAL TUNNE Right 2017 Carpal tunnel decomp NIPPLE/AREOLA RECONSTRUCTION Right 05/2016 PAST SURGICAL HISTORY OF laser surgery right eye to repair blood vessels PAST SURGICAL HISTORY OF several surgeries on feet PAST SURGICAL HISTORY OF 06/2009 Taking Tendon and Making Thumb Ligament (Right Wrist) PAST SURGICAL HISTORY OF 01/2010 Removal of Extra Tendon at Wrist (Right) PAST SURGICAL HISTORY OF Pisform bone right hand PAST SURGICAL HISTORY OF 1985,1987 wrist surgery bilateral PAST SURGICAL HISTORY OF 04/2014 slt on right eye PAST SURGICAL HISTORY OF Right 07/2016 Right trigger finger, [facility] PAST SURGICAL HISTORY OF 2009 D&C, polypectomy for postmenopausal bleeding PAST SURGICAL HISTORY OF 10/10/2020 thumb surgery on right hand at [facility] (fused the thumb) PAST SURGICAL HISTORY OF 06/19/2022 INSERTION STIMULATOR GENERATOR BLADDER REPAIR FINGER TENDON 05/2012 right thumb TONSILLECTOMY PRIMARY/SECONDARY <AGE 12 Tonsillectomy ALLERGIES Olmesartan, Sulfamethoxazole-Trimethoprim, Altace [Ramipril], Amlodipine, Atenolol, Baclofen, Cats, Doxycycline, Fenofibrate, Lyrica [Pregabalin], Pineapple, Ragweed, Remeron [Mirtazapine], Trazodone, Tricor [Fenofibrate Micronized], [place], Erythromycin, Serzone [Nefazodone Hcl], and Wellbutrin [Bupropion Hcl] MEDICATIONS metFORMIN (GLUCOPHAGE) 500 mg tablet Take 1 tablet by mouth once daily. irbesartan (AVAPRO) 150 mg tablet Take 1 tablet by mouth every morning. meloxicam (MOBIC) 15 mg tablet TAKE 1 TABLET DAILY WITH FOOD FOR PAIN atorvastatin (LIPITOR) 20 mg tablet Take 1 tablet by mouth once daily. metaxalone (SKELAXIN) 800 mg tablet Take 0.5-1 tablets by mouth three times daily as needed for pain (or muscle spasms). gabapentin (NEURONTIN) 300 mg capsule Take 1 capsule by mouth twice daily for 180 days. metFORMIN (GLUCOPHAGE) 500 mg tablet Take 1 tablet by mouth once daily. Calcium Citrate 250 mg calcium tab Take 1 tablet by mouth once daily. tolterodine ER (DETROL LA) 4 mg 24 hr capsule Take 1 capsule by mouth once daily. hydrocortisone 0.5 % ointment Apply to affected area twice daily. albuterol HFA (VENTOLIN HFA) 90 mcg/actuation inhaler Inhale 2 Puffs as instructed every 4 hours as needed. blood sugar diagnostic (BLOOD GLUCOSE TEST) test strip Test blood sugar(s) 1 times daily. Dx: Type 2 DM - Controlled E11.9 Insulin: No Lancets lancets Test blood sugar(s) 1 times daily. Dx: Type 2 DM - Controlled E11.9 Insulin: No ibuprofen (MOTRIN) 200 mg tablet Take 200 mg by mouth every 6 hours as needed. aspirin, enteric coated (ASPIRIN, ENTERIC COATED) 81 mg EC tablet aspirin Aspirin 81 MG PO DAILY September 23, 2018 Active 09-23-2018 [facility] ([id number]) cholecalciferol (VITAMIN D3) 1,000 unit tab tablet cholecalciferol Cholecalciferol (Vit D3) Active 1000 UNIT DAILY September 23, 2018 7:41pm 09-23-2018 [facility] ([id number]) latanoprost (XALATAN) 0.005 % ophthalmic solution Use 1 Drop in both eyes daily at bedtime. glucosamine/msm/chondroitin A (NDIUFOBMZZB-CYTMEX-ZIY ORAL) montelukast (SINGULAIR) 10 mg tablet Take 1 tablet by mouth once daily. mometasone (NASONEX) 50 mcg/actuation nasal spray Use 2 Sprays in the nose once daily. cetirizine (ZYRTEC) 10 mg tablet Take 10 mg by mouth every other day. THERAPEUTIC MULTIVITAMIN TAB Take one (1) tablet daily FAMILY HISTORY Problem Relation Age of Onset Hypertension Mother Anesthesia Mother Stroke Mother Parkinson s Disease Mother Dementia Hypertension Father Blood Disease Father Mylofibrosis Diabetes Sister Heart Sister Myocardial Infarction/Triple Bypass Hypertension Sister other (DCIS) Sister grade 2 Diabetes Sister Cancer Sister melanoma Hypertension Sister Diabetes Maternal Grandmother Diabetes Maternal Grandfather Diabetes Paternal Grandmother Diabetes Paternal Grandfather Diabetes Maternal Aunt other (DCIS) Other Social History Tobacco Use Smoking status: Never Smokeless tobacco: Never Vaping Use Vaping Use: Never used Substance Use Topics Alcohol use: Not Currently Drug use: Never Physical Exam Vitals reviewed. Constitutional: General: She is not in acute distress. Appearance: Normal appearance. She is normal weight. She is not ill-appearing or toxic-appearing. HENT: Right Ear: Tympanic membrane, ear canal and external ear normal. No swelling or tenderness. There is no impacted cerumen. Tympanic membrane is not perforated, erythematous, retracted or bulging. Left Ear: Tympanic membrane, ear canal and external ear normal. No swelling or tenderness. There is no impacted cerumen. Tympanic membrane is not perforated, erythematous, retracted or bulging. Nose: No congestion. Mouth/Throat: Mouth: Mucous membranes are moist. Pharynx: Oropharynx is clear. Uvula midline. Posterior oropharyngeal erythema present. No pharyngeal swelling, oropharyngeal exudate or uvula swelling. Cardiovascular: Rate and Rhythm: Normal rate and regular rhythm. Pulmonary: Effort: Pulmonary effort is normal. No respiratory distress. Breath sounds: Normal breath sounds. Musculoskeletal: Right hip: Normal strength. Left hip: Tenderness present. Normal strength. Legs: Neurological: General: No focal deficit present. Mental Status: She is alert and oriented to person, place, and time. Mental status is at baseline. Psychiatric: Mood and Affect: Mood normal. Behavior: Behavior normal. Thought Content: Thought content normal. Judgment: Judgment normal. Assessment and Plan ASSESSMENT/PLAN: 1. Sore throat - ICD9: 462, ICD10: J02.9 (primary diagnosis) - suspect viral - COVD/flu/RSV sent - Discussed supportive care treatment with fluids, rest and analgesia. - The patient may also use OTC decongestants prn, OTC cough and cold meds as needed, and warm salt water gargles, throat lozenges and/or OTC throat spray as needed. - The patient should follow up in 3-5 days if symptoms persist or worsen - COVID & INFLUENZA A/B & RSV NAAT, ROUTINE - COVID NAAT, UPPER RESPIRATORY, ROUTINE - ROUTINE FLU A/B + RSV 2. Left hip pain - ICD9: 719.45, ICD10: M25.552 - XR negative: IMPRESSION: No acute bony finding. 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 - Discussed supportive care treatment with fluids, rest and analgesia. - Discussed expected course of illness TEACHING PROVIDER (Physician/PA/CLAIM SPECIALIST) NOTE OF PERSONAL INVOLVEMENT IN CARE: I have personally seen and examined the patient and performed the medical decision-making components. I have reviewed the Advanced Practice Registered Nurse (CLAIM SPECIALIST) Student's documentation and verified the findings in the note as written. Any additions or changes are noted in bold/italics. Signature: Kimber Tello Date: 10/23/2022 Time: 4:14 PM documented in this encounter [facility] 10-22-2022 Note HNO ID: [id number] Author: Jeremy Chavez MD Service: ? Author Type: Physician Type: Progress Notes Filed: 10/22/2022 1:12 PM Note Text: Order placed for AP, lateral X-rays to evaluate Interstim leads and generator [facility] 10-22-2022 History of Present illness Narrative Order placed for AP, lateral X-rays to evaluate Interstim leads and generator documented in this encounter [facility] 09-26-2022 History of Present illness Narrative Ysabel Dias PA-C Established Patient Department of Orthopaedics Orthopaedics [address] [place] [id number] Dept: [phone] September 26, 2022 SUBJECTIVE: CHIEF COMPLAINT: Established Patient, Follow Up, and Knee Pain of the Left Knee HPI: Ms. Froy Sharma is a 67 year old female. She was last seen in the office on 08/15/2022 where she was consulted to physical therapy and started on mobic. She presents today for follow up. Today she rates her pain a 0 on a scale of 0 to 10 at rest. She states that she has had significant improvement in her knee pain with physical therapy. She has been taking mobic with relief as well. She denies any recent injury or the onset of new or worsening symptoms. Past Medical History: PAST MEDICAL HISTORY Diagnosis Date Asthma Breast cancer (HCC) mastectomy, was seeing Masci Cervical stenosis of spine DCIS (ductal carcinoma in situ) 09/201415 grade 3 Delayed emergence from general anesthesia Diabetes mellitus, type II (HCC) Foraminal stenosis of cervical region Dr. Juarez High cholesterol Hypermobility syndrome Hypertension Insomnia Lumbar stenosis Dr. Juarez Malignant hyperthermia Myalgia and myositis, unspecified Other specified glaucoma Dr. Motta Psoriasis Dr. Phelan Right lumbar radiculitis Rotator cuff tear, left Trigeminal neuralgia Past Surgical History: PAST SURGICAL HISTORY Procedure Laterality Date BREAST LUMPECTOMY HX Left 11/2015, 01/2016 CATARACT EXTRACTION HX Bilateral 02/2018, 05/2018 COLONOSCOPY 05/22/2009 [facility] ENDOMETRIAL BIOPSY 05/24/2009 EXTRACTION, ERUPTED TOOTH OR EXPOSED ROOT (ELEVATION AND/OR FORCEPS REMOVAL) 1977 FUSION OF FINGER TENDONS 08/24/2017 4 fingers INTERSTIM,NEUROSTIM 3023 07/17/2022 Interstim lead removal and replacement , Fluoroscopy MASTECTOMY BRA Left 05/2015 MASTECTOMY HX Left 05/28/2015 reconstructed with gel implant MASTOPEXY Right 05/2015 and again Feb 2016 after implant completed NEUROPLASTY &/TRANSPOS MEDIAN NRV CARPAL TUNNE Right 2017 Carpal tunnel decomp NIPPLE/AREOLA RECONSTRUCTION Right 05/2016 PAST SURGICAL HISTORY OF laser surgery right eye to repair blood vessels PAST SURGICAL HISTORY OF several surgeries on feet PAST SURGICAL HISTORY OF 06/2009 Taking Tendon and Making Thumb Ligament (Right Wrist) PAST SURGICAL HISTORY OF 01/2010 Removal of Extra Tendon at Wrist (Right) PAST SURGICAL HISTORY OF Pisform bone right hand PAST SURGICAL HISTORY OF 1985,1987 wrist surgery bilateral PAST SURGICAL HISTORY OF 04/2014 slt on right eye PAST SURGICAL HISTORY OF Right 07/2016 Right trigger finger, [facility] PAST SURGICAL HISTORY OF 2009 D&C, polypectomy for postmenopausal bleeding PAST SURGICAL HISTORY OF 10/10/2020 thumb surgery on right hand at [facility] (fused the thumb) PAST SURGICAL HISTORY OF 06/19/2022 INSERTION STIMULATOR GENERATOR BLADDER REPAIR FINGER TENDON 05/2012 right thumb TONSILLECTOMY PRIMARY/SECONDARY <AGE 12 Tonsillectomy Family History: FAMILY HISTORY Problem Relation Age of Onset Hypertension Mother Anesthesia Mother Stroke Mother Parkinson s Disease Mother Dementia Hypertension Father Blood Disease Father Mylofibrosis Diabetes Sister Heart Sister Myocardial Infarction/Triple Bypass Hypertension Sister other (DCIS) Sister grade 2 Diabetes Sister Cancer Sister melanoma Hypertension Sister Diabetes Maternal Grandmother Diabetes Maternal Grandfather Diabetes Paternal Grandmother Diabetes Paternal Grandfather Diabetes Maternal Aunt other (DCIS) Other Social History: Social History Tobacco Use Smoking status: Never Smokeless tobacco: Never Vaping Use Vaping Use: Never used Substance Use Topics Alcohol use: Not Currently Drug use: Never Medications: Current Outpatient Medications Medication Sig metFORMIN (GLUCOPHAGE) 500 mg tablet Take 1 tablet by mouth once daily. irbesartan (AVAPRO) 150 mg tablet Take 1 tablet by mouth every morning. meloxicam (MOBIC) 15 mg tablet TAKE 1 TABLET DAILY WITH FOOD FOR PAIN atorvastatin (LIPITOR) 20 mg tablet Take 1 tablet by mouth once daily. metaxalone (SKELAXIN) 800 mg tablet Take 0.5-1 tablets by mouth three times daily as needed for pain (or muscle spasms). gabapentin (NEURONTIN) 300 mg capsule Take 1 capsule by mouth twice daily for 180 days. metFORMIN (GLUCOPHAGE) 500 mg tablet Take 1 tablet by mouth once daily. Calcium Citrate 250 mg calcium tab Take 1 tablet by mouth once daily. tolterodine ER (DETROL LA) 4 mg 24 hr capsule Take 1 capsule by mouth once daily. hydrocortisone 0.5 % ointment Apply to affected area twice daily. albuterol HFA (VENTOLIN HFA) 90 mcg/actuation inhaler Inhale 2 Puffs as instructed every 4 hours as needed. blood sugar diagnostic (BLOOD GLUCOSE TEST) test strip Test blood sugar(s) 1 times daily. Dx: Type 2 DM - Controlled E11.9 Insulin: No Lancets lancets Test blood sugar(s) 1 times daily. Dx: Type 2 DM - Controlled E11.9 Insulin: No ibuprofen (MOTRIN) 200 mg tablet Take 200 mg by mouth every 6 hours as needed. aspirin, enteric coated (ASPIRIN, ENTERIC COATED) 81 mg EC tablet aspirin Aspirin 81 MG PO DAILY September 23, 2018 Active 09-23-2018 [facility] ([id number]) cholecalciferol (VITAMIN D3) 1,000 unit tab tablet cholecalciferol Cholecalciferol (Vit D3) Active 1000 UNIT DAILY September 23, 2018 7:41pm 09-23-2018 [facility] ([id number]) latanoprost (XALATAN) 0.005 % ophthalmic solution Use 1 Drop in both eyes daily at bedtime. glucosamine/msm/chondroitin A (AORMCPMZOJK-VESSUK-BBC ORAL) montelukast (SINGULAIR) 10 mg tablet Take 1 tablet by mouth once daily. mometasone (NASONEX) 50 mcg/actuation nasal spray Use 2 Sprays in the nose once daily. cetirizine (ZYRTEC) 10 mg tablet Take 10 mg by mouth every other day. THERAPEUTIC MULTIVITAMIN TAB Take one (1) tablet daily No current facility-administered medications for this visit. Allergies: Olmesartan, Sulfamethoxazole-Trimethoprim, Altace [Ramipril], Amlodipine, Atenolol, Baclofen, Cats, Doxycycline, Fenofibrate, Lyrica [Pregabalin], Pineapple, Ragweed, Remeron [Mirtazapine], Trazodone, Tricor [Fenofibrate Micronized], [place], Erythromycin, Serzone [Nefazodone Hcl], and Wellbutrin [Bupropion Hcl] ROS: General: negative for fatigue, malaise, weight loss/gain Musculoskeletal: see HPI Psych: no depression, anxiety OBJECTIVE: Ms. Froy Sharma is a pleasant 67 year old in no apparent distress. Gen:LMP 09/05/2005 nl development, non obese, no deformities ENT: Normocephalic, normal hearing, moist mucosa CV: Pulses:DP/PT= 2+ and symmetric, capillary refill < 2 secs, no peripheral edema/varicosities Skin: no rash, bruising or lesions. Good turgor. Psych: cooperative and appropriate, alert and oriented x 3, good mood and affect. Musculoskeletal: Right knee, bilateral hips and ankles FROM without pain or limitation. LT Knee: Alignment: Varus deformity, Correctable Active Extension 0 and Active Flexion 120 Extension lag: No Pain with ROM: No Effusion: None Tender to the palpation of None Pain with patellar compression: No Stability: Anterior/Posterior stable and Varus/Valgus stable Patellofemoral crepitus: Yes Quad Atrophy: No Frannie's: Negative Anterior drawer: Negative IMAGING: Not indicated ASSESSMENT: M25.562, G89.29 Chronic patellofemoral pain of left knee (primary encounter diagnosis) PLAN: Reviewed images taken previously. Recommend patient continue to participate in HEP. Patient agreeable with plan and will follow up as needed. FOLLOW UP INSTRUCTIONS: As needed Ysabel Dias PA-C documented in this encounter [facility] 09-26-2022 History of Present illness Narrative Patient presents with: Medicare Wellness Exam HPI: Froy Sharma is a 67 year old female who presents to the office today for review of health conditions. Concerns today: Overall she is doing well Occasional right low back/buttock discomfort, comes and goes, not consistent, no known injuries. No bowel or bladder changes Overactive bladder, much improved symptoms with stimulator in place now. Rare use of tolteradine medication, sees URO Thyroid nodules, last checked labs and thyroid US in July, which was stable. Ms. Sharma has past history of diabetes. Since our last visit she denies excessive thirst or increased frequency of urination, chest pain or dyspnea , new or unusual visual symptoms, and low sugar/hypoglycemic reactions. Depression- no. Follows a diabetic diet most of the time. She is compliant with medication(s) and is tolerating med(s) without any side effects. She reports checking her glucose on a once a day schedule with sugars in the <200 range. Patient's last HgA1C was Hemoglobin A1C (%) Date Value 01/13/2022 5.9 08/02/2021 5.6 04/10/2020 6.1 09/26/2019 5.9 ) Last Ophthalmology exam was within the past 12 months Ms. Sharma reports history of hyperlipidemia. Current therapy includes atorvastatin (Lipitor) 20 mg. Denies side effects of muscle weakness or achiness. Her most recent lipid panels are reviewed. Cholesterol, Total (mg/dL) Date Value 01/13/2022 186 04/10/2020 146 HDL Cholesterol (mg/dL) Date Value 01/13/2022 38 04/10/2020 39 LDL Cholesterol (mg/dL) Date Value 01/13/2022 107 04/10/2020 84 Triglyceride (mg/dL) Date Value 01/13/2022 205 04/10/2020 115 Ms. Sharma indicates a history of hypertension and states that she is feeling well and denies any symptoms referable to elevated blood pressure. Specifically denies headache, chest pain, palpitations, dyspnea, and peripheral edema. Patient denies any side effects of her medication(s) and is compliant with their regimen. Last 3 Encounter BP Readings: Date: BP: 09/26/2022 120/80 08/06/2022 118/72 08/04/2022 118/73 She watches her diet for sodium, low fat and low cholesterol most of the time. She does not check BP's generally. Froy gets sporadic irregular exercise. 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 Juarez High cholesterol Hypermobility syndrome Hypertension Insomnia Lumbar stenosis Dr. Juarez Malignant hyperthermia Myalgia and myositis, unspecified Other specified glaucoma Dr. Motta Psoriasis Dr. Phelan Right lumbar radiculitis Rotator cuff tear, left Trigeminal neuralgia PAST SURGICAL HISTORY Procedure Laterality Date BREAST LUMPECTOMY HX Left 11/2015, 01/2016 CATARACT EXTRACTION HX Bilateral 02/2018, 05/2018 COLONOSCOPY 05/22/2009 [facility] ENDOMETRIAL BIOPSY 05/24/2009 EXTRACTION, ERUPTED TOOTH OR EXPOSED ROOT (ELEVATION AND/OR FORCEPS REMOVAL) 1977 FUSION OF FINGER TENDONS 08/24/2017 4 fingers INTERSTIM,NEUROSTIM 3023 07/17/2022 Interstim lead removal and replacement , Fluoroscopy MASTECTOMY BRA Left 05/2015 MASTECTOMY HX Left 05/28/2015 reconstructed with gel implant MASTOPEXY Right 05/2015 and again Feb 2016 after implant completed NEUROPLASTY &/TRANSPOS MEDIAN NRV CARPAL TUNNE Right 2017 Carpal tunnel decomp NIPPLE/AREOLA RECONSTRUCTION Right 05/2016 PAST SURGICAL HISTORY OF laser surgery right eye to repair blood vessels PAST SURGICAL HISTORY OF several surgeries on feet PAST SURGICAL HISTORY OF 06/2009 Taking Tendon and Making Thumb Ligament (Right Wrist) PAST SURGICAL HISTORY OF 01/2010 Removal of Extra Tendon at Wrist (Right) PAST SURGICAL HISTORY OF Pisform bone right hand PAST SURGICAL HISTORY OF 1985,1987 wrist surgery bilateral PAST SURGICAL HISTORY OF 04/2014 slt on right eye PAST SURGICAL HISTORY OF Right 07/2016 Right trigger finger, [facility] PAST SURGICAL HISTORY OF 2009 D&C, polypectomy for postmenopausal bleeding PAST SURGICAL HISTORY OF 10/10/2020 thumb surgery on right hand at [facility] (fused the thumb) PAST SURGICAL HISTORY OF 06/19/2022 INSERTION STIMULATOR GENERATOR BLADDER REPAIR FINGER TENDON 05/2012 right thumb TONSILLECTOMY PRIMARY/SECONDARY <AGE 12 Tonsillectomy Social History Tobacco Use Smoking status: Never Smokeless tobacco: Never Vaping Use Vaping Use: Never used Substance Use Topics Alcohol use: Not Currently Drug use: Never FAMILY HISTORY Problem Relation Age of Onset Hypertension Mother Anesthesia Mother Stroke Mother Parkinson s Disease Mother Dementia Hypertension Father Blood Disease Father Mylofibrosis Diabetes Sister Heart Sister Myocardial Infarction/Triple Bypass Hypertension Sister other (DCIS) Sister grade 2 Diabetes Sister Cancer Sister melanoma Hypertension Sister Diabetes Maternal Grandmother Diabetes Maternal Grandfather Diabetes Paternal Grandmother Diabetes Paternal Grandfather Diabetes Maternal Aunt other (DCIS) Other Allergies: ALLERGIES Allergen Reactions Olmesartan Diarrhea Sulfamethoxazole-Tr* Swelling Tongue swelled. Altace [Ramipril] Swelling Swells up throat. Amlodipine Itching Atenolol Other: See Comments Extremely low pulse Baclofen Intolerance Headache 20 min after taking Cats Swelling irritates eyes,hand swelling Doxycycline GI Upset Fenofibrate Other: See Comments Sore Muscles Lyrica [Pregabalin] Intolerance tongue swelling Pineapple Anaphylaxis throat swells Ragweed Swelling Remeron [Mirtazapin* Other: See Comments Hyperactive and desire to danielle into things Trazodone Other: See Comments Bad Headache Tricor [Fenofibrate* Intolerance muscle pain [place] Swelling Throat and mouth swelling Erythromycin Intolerance turns bright red all over Serzone [Nefazodone* Intolerance States it makes her grouchy Wellbutrin [Bupropi* Intolerance States medication makes her nervous Current Meds: meloxicam (MOBIC) 15 mg tablet TAKE 1 TABLET DAILY WITH FOOD FOR PAIN atorvastatin (LIPITOR) 20 mg tablet Take 1 tablet by mouth once daily. metaxalone (SKELAXIN) 800 mg tablet Take 0.5-1 tablets by mouth three times daily as needed for pain (or muscle spasms). metFORMIN (GLUCOPHAGE) 500 mg tablet Take 1 tablet by mouth once daily. Calcium Citrate 250 mg calcium tab Take 1 tablet by mouth once daily. tolterodine ER (DETROL LA) 4 mg 24 hr capsule Take 1 capsule by mouth once daily. hydrocortisone 0.5 % ointment Apply to affected area twice daily. albuterol HFA (VENTOLIN HFA) 90 mcg/actuation inhaler Inhale 2 Puffs as instructed every 4 hours as needed. blood sugar diagnostic (BLOOD GLUCOSE TEST) test strip Test blood sugar(s) 1 times daily. Dx: Type 2 DM - Controlled E11.9 Insulin: No Lancets lancets Test blood sugar(s) 1 times daily. Dx: Type 2 DM - Controlled E11.9 Insulin: No ibuprofen (MOTRIN) 200 mg tablet Take 200 mg by mouth every 6 hours as needed. latanoprost (XALATAN) 0.005 % ophthalmic solution Use 1 Drop in both eyes daily at bedtime. montelukast (SINGULAIR) 10 mg tablet Take 1 tablet by mouth once daily. mometasone (NASONEX) 50 mcg/actuation nasal spray Use 2 Sprays in the nose once daily. cetirizine (ZYRTEC) 10 mg tablet Take 10 mg by mouth every other day. metFORMIN (GLUCOPHAGE) 500 mg tablet Take 1 tablet by mouth once daily. irbesartan (AVAPRO) 150 mg tablet Take 1 tablet by mouth every morning. gabapentin (NEURONTIN) 300 mg capsule Take 1 capsule by mouth twice daily for 180 days. aspirin, enteric coated (ASPIRIN, ENTERIC COATED) 81 mg EC tablet aspirin Aspirin 81 MG PO DAILY September 23, 2018 Active 09-23-2018 [facility] ([id number]) cholecalciferol (VITAMIN D3) 1,000 unit tab tablet cholecalciferol Cholecalciferol (Vit D3) Active 1000 UNIT DAILY September 23, 2018 7:41pm 09-23-2018 [facility] ([id number]) glucosamine/msm/chondroitin A ([id number]-HCCBUU-PDW ORAL) THERAPEUTIC MULTIVITAMIN TAB Take one (1) tablet daily Review of Systems: The remainder of the review of systems is negative. PE: 09/26/22 0826 BP: 120/80 Pulse: 76 Resp: 20 Temp: 36.5 C (97.7 F) TempSrc: Left Tympanic Weight: 59.9 kg (132 lb) Gen: A&O, NAD, non-toxic appearing, Pleasant, cooperative HEENT: NT/AC, PERRLA, EOMs intact b/l, nares clear and patent b/l, pharynx without erythema, exudate or lesions. Uvula midline. MMM., EACs without erythema or debris. TMs pearly mcconnell with intact landmarks b/l. Hard of hearing Neck: supple, No cervical LAD, no thyromegaly, no carotid bruits CV: RRR, normal S1 and S2, no murmurs, no gallops, no rubs, Pulses 2+ and symmetric in UE and LE b/l Lungs: normal respiratory effort, CTA b/l, no wheezing or rhonchi or rales Abd: soft, NT, ND, +BS, no hepatosplenomegaly MS: FROM all 4 extremities Neuro: CN II-XII intact b/l, strength 5/5 b/l UE and LE, DTRs 2/4 UE and LE, sensation intact. Skin: warm, dry, intact, No rashes or lesions on exposed skin. Foot exam: Monofilament wnl on right and left feet. No edema, normal pulses ASSESSMENT/PLAN: 1. Type 2 diabetes mellitus without complication, without long-term current use of insulin (HCC) - ICD9: 250.00, ICD10: E11.9 (primary diagnosis) - Controlled - Continue current medications - Blood glucose monitoring on a once daily schedule - Counseled on healthy diet and regular exercise - METFORMIN 500 MG TABLET - HGB A1C - COMP METABOLIC PANEL - CBC + DIFF - ALBUMIN/CREAT RATIO RND UR 2. Other diabetic neurological complication associated with type 2 diabetes mellitus (HCC) - ICD9: 250.60, ICD10: E11.49 - Controlled - Continue current medications 3. Dyslipidemia - ICD9: 272.4, ICD10: E78.5 - Controlled - Continue current medications - Counseled on healthy diet and regular exercise 4. Fatigue, unspecified type - ICD9: 780.79, ICD10: R53.83 stable 5. Multiple thyroid nodules - ICD9: 241.1, ICD10: E04.2 Stable, recent thyroid US and labs were stable. 6. Right hip pain - ICD9: 719.45, ICD10: M25.551 F/u with PHYSICAL THERAPY if not improving, giving her exercises to do today 7. OAB (overactive bladder) - ICD9: 596.51, ICD10: N32.81 Improved with stimulator Hitesh Maria DO To ER if develops chest pain, shortness of breath, or severe worsening of symptoms. Discussed risks, benefits, alternatives, and potential side effects of medications. Patient expressed understanding and agreed with the plan. Hitesh Maria DO [address] [place] [address] documented in this encounter [facility] 08-25-2022 Miscellaneous Notes Last office visit: 08/06/22 F/u scheduled: 09/26/22 Patient Comment: [facility] only refilled for 20 pills this last time. I only have 1 pill left. Anne Marie Duncan Ma documented in this encounter [facility] 08-13-2022 Miscellaneous Notes Patient phones requesting refills as follows: Requested Prescriptions Pending Prescriptions Disp Refills atorvastatin (LIPITOR) 20 mg tablet 90 tablet 1 Sig: Take 1 tablet by mouth once daily. JOSE-08/06/22 Labs-08/06/22 NOV-09/26/22 Please review and advise. Dorota Flores LPN documented in this encounter [facility] 08-11-2022 Miscellaneous Notes TC to patient who verbalized understanding of providers message with no questions at this time. ALXE Hollis ----- Message from Connie Pickering MD sent at 08/11/2022 11:29 AM EDT ----- Thyroid size unchanged since last US in April. Nodules still recommended to be monitored annually. No significant change to correspond with feeling of neck fullness. Call if symptoms persist or worsen. documented in this encounter [facility] 08-08-[address] [facility] 08-08-2022 Miscellaneous Notes Phoned patient and spoke with her and advised her of lab correction and provider's message. Patient voiced understanding. T3 level corrected. Both readings are in the normal range and does not change her management. Please notify patient. Arleen from [facility] Automated Chemistry Dept to update provider on corrected T3 lab report. Was resulted as 103 but corrected to 84. documented in this encounter [facility] 08-08-2022 History of Present illness Narrative Radiology Service Progress Note PATIENT NAME: Froy Sharma DATE OF SERVICE: August 08, 2022 TIME: 10:56 AM PATIENT IDENTITY VERIFICATION COMPLETED USING TWO (2) IDENTIFIERS: Name and Date of confirmed by patient verbally. FALL SCREENING: Has the patient had 2 falls in the last year or 1 fall with injury or currently using an Ambulatory Assistive Device (Walker, Cane, Wheelchair, Crutches, etc.)? No PATIENT GENDER DATA: Female. status: : No status: NO. PATIENT RELEVANT IMPLANT DATA REVIEWED: Not Applicable RADIOLOGY DEPARTMENT: Ultrasound PERIPHERAL IV DATA: Not applicable SIGNED BY: Gabrielle Diaz RDMS August 08, 2022 10:56 AM documented in this encounter [facility] 08-06-[address] [facility] 08-06-2022 History of Present illness Narrative Chief Complaint Patient presents with: Thyroid Problem: Goiter; swelling middle of neck x 1 week with increased fatigue HPI Froy Sharma is a 67 year old female who presents here today for Above Complaints. Patient here today complaining of increased thyroid swelling for the last week. Admits to fatigue. Denies hot/cold intolerance, weight change, diarrhea, constipation, hair/skin changes, neck pain, dysphagia. US 3 months ago showed normal sized thyroid with two <1cm nodules. Past medical history, appointments, medications, allergies reviewed. 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 Juarez High cholesterol Hypermobility syndrome Hypertension Insomnia Lumbar stenosis Dr. Juarez Malignant hyperthermia Myalgia and myositis, unspecified Other specified glaucoma Dr. Motta Psoriasis Dr. Phelan Right lumbar radiculitis Rotator cuff tear, left Trigeminal neuralgia Previous Surgical History PAST SURGICAL HISTORY Procedure Laterality Date BREAST LUMPECTOMY HX Left 11/2015, 01/2016 CATARACT EXTRACTION HX Bilateral 02/2018, 05/2018 COLONOSCOPY 05/22/2009 [facility] ENDOMETRIAL BIOPSY 05/24/2009 EXTRACTION, ERUPTED TOOTH OR EXPOSED ROOT (ELEVATION AND/OR FORCEPS REMOVAL) 1977 FUSION OF FINGER TENDONS 08/24/2017 4 fingers INTERSTIM,NEUROSTIM 3023 07/17/2022 Interstim lead removal and replacement , Fluoroscopy MASTECTOMY BRA Left 05/2015 MASTECTOMY HX Left 05/28/2015 reconstructed with gel implant MASTOPEXY Right 05/2015 and again Feb 2016 after implant completed NEUROPLASTY &/TRANSPOS MEDIAN NRV CARPAL TUNNE Right 2017 Carpal tunnel decomp NIPPLE/AREOLA RECONSTRUCTION Right 05/2016 PAST SURGICAL HISTORY OF laser surgery right eye to repair blood vessels PAST SURGICAL HISTORY OF several surgeries on feet PAST SURGICAL HISTORY OF 06/2009 Taking Tendon and Making Thumb Ligament (Right Wrist) PAST SURGICAL HISTORY OF 01/2010 Removal of Extra Tendon at Wrist (Right) PAST SURGICAL HISTORY OF Pisform bone right hand PAST SURGICAL HISTORY OF 1985,1987 wrist surgery bilateral PAST SURGICAL HISTORY OF 04/2014 slt on right eye PAST SURGICAL HISTORY OF Right 07/2016 Right trigger finger, [facility] PAST SURGICAL HISTORY OF 2009 D&C, polypectomy for postmenopausal bleeding PAST SURGICAL HISTORY OF 10/10/2020 thumb surgery on right hand at [facility] (fused the thumb) PAST SURGICAL HISTORY OF 06/19/2022 INSERTION STIMULATOR GENERATOR BLADDER REPAIR FINGER TENDON 05/2012 right thumb TONSILLECTOMY PRIMARY/SECONDARY <AGE 12 Tonsillectomy Family History FAMILY HISTORY Problem Relation Age of Onset Hypertension Mother Anesthesia Mother Stroke Mother Parkinson s Disease Mother Dementia Hypertension Father Blood Disease Father Mylofibrosis Diabetes Sister Heart Sister Myocardial Infarction/Triple Bypass Hypertension Sister other (DCIS) Sister grade 2 Diabetes Sister Cancer Sister melanoma Hypertension Sister Diabetes Maternal Grandmother Diabetes Maternal Grandfather Diabetes Paternal Grandmother Diabetes Paternal Grandfather Diabetes Maternal Aunt other (DCIS) Other Patient Allergies ALLERGIES Allergen Reactions Olmesartan Diarrhea Sulfamethoxazole-Tr* Swelling Tongue swelled. Altace [Ramipril] Swelling Swells up throat. Amlodipine Itching Atenolol Other: See Comments Extremely low pulse Baclofen Intolerance Headache 20 min after taking Cats Swelling irritates eyes,hand swelling Doxycycline GI Upset Fenofibrate Other: See Comments Sore Muscles Lyrica [Pregabalin] Intolerance tongue swelling Pineapple Anaphylaxis throat swells Ragweed Swelling Remeron [Mirtazapin* Other: See Comments Hyperactive and desire to danielle into things Trazodone Other: See Comments Bad Headache Tricor [Fenofibrate* Intolerance muscle pain [place] Swelling Throat and mouth swelling Erythromycin Intolerance turns bright red all over Serzone [Nefazodone* Intolerance States it makes her grouchy Wellbutrin [Bupropi* Intolerance States medication makes her nervous Current Medications Current Outpatient Medications on File Prior to Visit Medication Sig metaxalone (SKELAXIN) 800 mg tablet Take 0.5-1 tablets by mouth three times daily as needed for pain (or muscle spasms). gabapentin (NEURONTIN) 300 mg capsule Take 1 capsule by mouth twice daily for 180 days. Calcium Citrate 250 mg calcium tab Take 1 tablet by mouth once daily. tolterodine ER (DETROL LA) 4 mg 24 hr capsule Take 1 capsule by mouth once daily. hydrocortisone 0.5 % ointment Apply to affected area twice daily. albuterol HFA (VENTOLIN HFA) 90 mcg/actuation inhaler Inhale 2 Puffs as instructed every 4 hours as needed. metFORMIN (GLUCOPHAGE) 500 mg tablet Take 1 tablet by mouth once daily. meloxicam (MOBIC) 15 mg tablet TAKE 1 TABLET DAILY WITH FOOD FOR PAIN blood sugar diagnostic (BLOOD GLUCOSE TEST) test strip Test blood sugar(s) 1 times daily. Dx: Type 2 DM - Controlled E11.9 Insulin: No Lancets lancets Test blood sugar(s) 1 times daily. Dx: Type 2 DM - Controlled E11.9 Insulin: No ibuprofen (MOTRIN) 200 mg tablet Take 200 mg by mouth every 6 hours as needed. aspirin, enteric coated (ASPIRIN, ENTERIC COATED) 81 mg EC tablet aspirin Aspirin 81 MG PO DAILY September 23, 2018 Active 09-23-2018 [facility] ([id number]) cholecalciferol (VITAMIN D3) 1,000 unit tab tablet cholecalciferol Cholecalciferol (Vit D3) Active 1000 UNIT DAILY September 23, 2018 7:41pm 09-23-2018 [facility] ([id number]) latanoprost (XALATAN) 0.005 % ophthalmic solution Use 1 Drop in both eyes daily at bedtime. glucosamine/msm/chondroitin A ([id number]-ZDS ORAL) montelukast (SINGULAIR) 10 mg tablet Take 1 tablet by mouth once daily. mometasone (NASONEX) 50 mcg/actuation nasal spray Use 2 Sprays in the nose once daily. cetirizine (ZYRTEC) 10 mg tablet Take 10 mg by mouth every other day. THERAPEUTIC MULTIVITAMIN TAB Take one (1) tablet daily metFORMIN (GLUCOPHAGE) 500 mg tablet Take 1 tablet by mouth once daily. (Patient not taking: Reported on 08/06/2022) irbesartan (AVAPRO) 150 mg tablet Take 1 tablet by mouth daily at bedtime. (Patient taking differently: Take 150 mg by mouth every morning.) atorvastatin (LIPITOR) 20 mg tablet Take 1 tablet by mouth once daily. No current facility-administered medications on file prior to visit. Social History Social History Tobacco Use Smoking status: Never Smokeless tobacco: Never Vaping Use Vaping Use: Never used Substance Use Topics Alcohol use: Not Currently Drug use: Never Review of Symptoms REVIEW OF SYSTEMS See HPI EXAM: BP 118/72 Pulse 114 Temp 36.6 C (97.9 F) (Right Tympanic) Resp 16 Wt 58.6 kg (129 lb 3.2 oz) LMP 09/05/2005 SpO2 96% BMI 23.63 kg/m General Appearance: Well appearing, alert, in no acute distress, well-hydrated, well nourished.. Skin: Skin color, texture, turgor normal, no suspicious rashes or lesions. Neck: Supple, no adenopathy; thyroid symmetric, normal size, no bruits. Health Maintenance List URINE ALBUMIN:CREATININE RATIO due on 07/03/2022 DIABETIC FOOT EXAM due on 07/03/2022 BP CONTROLLED (<130/80) due on 07/03/2022 HBA1C due on 07/14/2022 COLORECTAL CANCER SCREENING due on 03/12/2023 MAMMOGRAM due on 11/25/2022 LDL CHOLESTEROL due on 01/13/2023 DILATED RETINAL EXAM due on 06/04/2023 ANNUAL PCP TEAM CHRONIC DISEASE VISIT due on 07/23/2023 DTAP,TDAP,TD(10 - Td or Tdap) due on 02/19/2028 BONE DENSITY Completed SPIROMETRY Completed INFLUENZA Completed DEPRESSION ASSESSMENT Completed HEPATITIS C SCREENING Completed SHINGRIX VACCINE Completed COVID-19 VACCINE Completed PNEUMOCOCCAL: 65+ Completed ADVANCE DIRECTIVE DISCUSSION Discontinued Data reviewed Component Latest Ref Rng & Units 01/13/2022 TSH 0.270 - 4.200 mIU/L 2.440 Free T4 0.9 - 1.7 ng/dL 0.9 Free T3 2.3 - 4.1 pg/mL 2.8 ASSESSMENT/PLAN: 1. Thyroid fullness - ICD9: 246.8, ICD10: E07.89 (primary diagnosis) Normal on my exam today. Will recheck labs and US to confirm since I have not checked her thyroid in years to compare today's exam to. Red flags for re-assessment reviewed with patient in detail. - TSH BLD - T4 FREE/FREE THYROX - T3 BLD - US THYROID/PARATHYROID 2. Fatigue, unspecified type - ICD9: 780.79, ICD10: R53.83 See above. Connie Pickering MD documented in this encounter [facility] 08-04-[address] [facility] 07-31-2022 Miscellaneous Notes Froy Sharma is scheduled for an injection on 09/03/[address] Nixon located on the 2nd floor of the [facility]. [address] [place] [id number] The day before your procedure, our staff will contact you with the scheduled time. * Please Remember * X-rays, MRI s or CT scans of the area being injected. This only applies to imaging done at an outside facility. You will be asked to reschedule if the films are not present. Insurance card, team truck driver s license, current medication / allergy list. Tray Checker that remains present during your entire procedure - it could take up to 2-3 hours. No procedure will be performed without a team truck driver. Leave all valuables and jewelry at home. Do not wear Contact lenses, bring a case for eye glasses Do not wear makeup or nail estonian. No food 6 hours before scheduled time. May have clear liquids up to 2 hours before scheduled time You must be HEALTHY on the day of your procedure. You will need to reschedule if you are on ANTIBIOTICS for any infection Medications Please take all routine medications for your heart, high blood pressure and seizures. These medications can be taken with small sips of water up to 2 hours prior to your procedure time. Blood thinners - STOP 14 days prior to procedure : Ticlid 5-7 days prior : Plavix, ReoPro, Effient, Altepase, Coumadin, Aspirin 325 mg or 81 mg, Persantine, Aggrenox, Orgaran, Pradaxa, Brinlinta 3 days prior : NSAIDs, Pletal, Trental, Xeralto, Eliquis 12 hours prior : Heparin, Lovenox, Innohep, Fragmin, Normiflo You will need to consult your family physician or gas prover for permission to stop these medications Diabetic Medications Insulin - please contact your prescribing physician regarding dosage. Metformin - hold evening before and morning of procedure day Other oral diabetic medications - Hold day of procedure and bring with you. Supplements Stop 5 days before procedure : Multivitamins, [place] 3 fish oils, Vitamin E, herbals with lenora, ginko biloba, and feverfew, cumin, and tumeric Pain Medications Do NOT take any pain medications the day of your procedure documented in this encounter [facility] 07-22-[address] [facility] 07-22-[address] [facility] 07-22-2022 Instructions Ben Paulson APRN.MARCOS - 07/22/2022 9:22 AM EDT Complete xray documented in this encounter [facility] 07-22-2022 History of Present illness Narrative Chief Complaint Patient presents with: Knee Pain HPI Froy Sharma is a 67 year old female who presents here today for Above Complaints.. Patient presents for left knee pain x10 days. Patient reports she feels like there is gravel in her knee and that there is something poking in there when she bends it. Patient reports taking advil with slight improvement. Past medical history, appointments, medications, allergies reviewed. 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 Juarez High cholesterol Hypermobility syndrome Hypertension Insomnia Lumbar stenosis Dr. Juarez Malignant hyperthermia Myalgia and myositis, unspecified Other specified glaucoma Dr. Motta Psoriasis Dr. Phelan Right lumbar radiculitis Rotator cuff tear, left Trigeminal neuralgia Previous Surgical History PAST SURGICAL HISTORY Procedure Laterality Date BREAST LUMPECTOMY HX Left 11/2015, 01/2016 CATARACT EXTRACTION HX Bilateral 02/2018, 05/2018 COLONOSCOPY 05/22/2009 [facility] ENDOMETRIAL BIOPSY 05/24/2009 EXTRACTION, ERUPTED TOOTH OR EXPOSED ROOT (ELEVATION AND/OR FORCEPS REMOVAL) 1977 FUSION OF FINGER TENDONS 08/24/2017 4 fingers MASTECTOMY BRA Left 05/2015 MASTECTOMY HX Left 05/28/2015 reconstructed with gel implant MASTOPEXY Right 05/2015 and again Feb 2016 after implant completed NEUROPLASTY &/TRANSPOS MEDIAN NRV CARPAL TUNNE Right 2017 Carpal tunnel decomp NIPPLE/AREOLA RECONSTRUCTION Right 05/2016 PAST SURGICAL HISTORY OF laser surgery right eye to repair blood vessels PAST SURGICAL HISTORY OF several surgeries on feet PAST SURGICAL HISTORY OF 06/2009 Taking Tendon and Making Thumb Ligament (Right Wrist) PAST SURGICAL HISTORY OF 01/2010 Removal of Extra Tendon at Wrist (Right) PAST SURGICAL HISTORY OF Pisform bone right hand PAST SURGICAL HISTORY OF 1985,1987 wrist surgery bilateral PAST SURGICAL HISTORY OF 04/2014 slt on right eye PAST SURGICAL HISTORY OF Right 07/2016 Right trigger finger, [facility] PAST SURGICAL HISTORY OF 2009 D&C, polypectomy for postmenopausal bleeding PAST SURGICAL HISTORY OF 10/10/2020 thumb surgery on right hand at [facility] (fused the thumb) PAST SURGICAL HISTORY OF 06/19/2022 INSERTION STIMULATOR GENERATOR BLADDER REPAIR FINGER TENDON 05/2012 right thumb TONSILLECTOMY PRIMARY/SECONDARY <AGE 12 Tonsillectomy Family History FAMILY HISTORY Problem Relation Age of Onset Hypertension Mother Anesthesia Mother Stroke Mother Parkinson s Disease Mother Dementia Hypertension Father Blood Disease Father Mylofibrosis Diabetes Sister Heart Sister Myocardial Infarction/Triple Bypass Hypertension Sister other (DCIS) Sister grade 2 Diabetes Sister Cancer Sister melanoma Hypertension Sister Diabetes Maternal Grandmother Diabetes Maternal Grandfather Diabetes Paternal Grandmother Diabetes Paternal Grandfather Diabetes Maternal Aunt other (DCIS) Other Patient Allergies ALLERGIES Allergen Reactions Olmesartan Diarrhea Sulfamethoxazole-Tr* Swelling Tongue swelled. Altace [Ramipril] Swelling Swells up throat. Amlodipine Itching Atenolol Other: See Comments Extremely low pulse Baclofen Intolerance Headache 20 min after taking Cats Swelling irritates eyes,hand swelling Doxycycline GI Upset Fenofibrate Other: See Comments Sore Muscles Lyrica [Pregabalin] Intolerance tongue swelling Pineapple Anaphylaxis throat swells Ragweed Swelling Remeron [Mirtazapin* Other: See Comments Hyperactive and desire to danielle into things Trazodone Other: See Comments Bad Headache Tricor [Fenofibrate* Intolerance muscle pain [place] Swelling Throat and mouth swelling Erythromycin Intolerance turns bright red all over Serzone [Nefazodone* Intolerance States it makes her grouchy Wellbutrin [Bupropi* Intolerance States medication makes her nervous Current Medications Current Outpatient Medications on File Prior to Visit Medication Sig cephALEXin (KEFLEX) 500 mg capsule Take 1 capsule by mouth twice daily for 7 days. oxyCODONE-acetaminophen (PERCOCET) 5-325 mg tablet Take 1 tablet by mouth every 4 hours as needed for pain. metaxalone (SKELAXIN) 800 mg tablet Take 0.5-1 tablets by mouth three times daily as needed for pain (or muscle spasms). gabapentin (NEURONTIN) 300 mg capsule Take 1 capsule by mouth twice daily for 180 days. metFORMIN (GLUCOPHAGE) 500 mg tablet Take 1 tablet by mouth once daily. Calcium Citrate 250 mg calcium tab Take 1 tablet by mouth once daily. tolterodine ER (DETROL LA) 4 mg 24 hr capsule Take 1 capsule by mouth once daily. irbesartan (AVAPRO) 150 mg tablet Take 1 tablet by mouth daily at bedtime. (Patient taking differently: Take 150 mg by mouth every morning.) hydrocortisone 0.5 % ointment Apply to affected area twice daily. albuterol HFA (VENTOLIN HFA) 90 mcg/actuation inhaler Inhale 2 Puffs as instructed every 4 hours as needed. metFORMIN (GLUCOPHAGE) 500 mg tablet Take 1 tablet by mouth once daily. meloxicam (MOBIC) 15 mg tablet TAKE 1 TABLET DAILY WITH FOOD FOR PAIN atorvastatin (LIPITOR) 20 mg tablet Take 1 tablet by mouth once daily. blood sugar diagnostic (BLOOD GLUCOSE TEST) test strip Test blood sugar(s) 1 times daily. Dx: Type 2 DM - Controlled E11.9 Insulin: No Lancets lancets Test blood sugar(s) 1 times daily. Dx: Type 2 DM - Controlled E11.9 Insulin: No ibuprofen (MOTRIN) 200 mg tablet Take 200 mg by mouth every 6 hours as needed. aspirin, enteric coated (ASPIRIN, ENTERIC COATED) 81 mg EC tablet aspirin Aspirin 81 MG PO DAILY September 23, 2018 Active 09-23-2018 [facility] ([id number]) cholecalciferol (VITAMIN D3) 1,000 unit tab tablet cholecalciferol Cholecalciferol (Vit D3) Active 1000 UNIT DAILY September 23, 2018 7:41pm 09-23-2018 [facility] ([id number]) latanoprost (XALATAN) 0.005 % ophthalmic solution Use 1 Drop in both eyes daily at bedtime. glucosamine/msm/chondroitin A ([id number]-ZHRFGW-IQE ORAL) montelukast (SINGULAIR) 10 mg tablet Take 1 tablet by mouth once daily. mometasone (NASONEX) 50 mcg/actuation nasal spray Use 2 Sprays in the nose once daily. cetirizine (ZYRTEC) 10 mg tablet Take 10 mg by mouth every other day. THERAPEUTIC MULTIVITAMIN TAB Take one (1) tablet daily No current facility-administered medications on file prior to visit. Social History Social History Tobacco Use Smoking status: Never Smokeless tobacco: Never Vaping Use Vaping Use: Never used Substance Use Topics Alcohol use: Not Currently Drug use: Never Review of Symptoms REVIEW OF SYSTEMS SEE HPI EXAM: BP 138/80 Pulse 86 Resp 16 Wt 58.1 kg (128 lb) LMP 09/05/2005 BMI 23.41 kg/m General Appearance: Well appearing, alert, in no acute distress, well-hydrated, well nourished.. Extremities: Positive findings: joint location: on left knee pain, swelling, painful movement, and loss of ROM. Health Maintenance List BP CONTROLLED (<130/80) due on 07/03/2022 HBA1C due on 07/14/2022 URINE ALBUMIN:CREATININE RATIO due on 07/03/2022 DIABETIC FOOT EXAM due on 07/03/2022 COLORECTAL CANCER SCREENING due on 03/12/2023 MAMMOGRAM due on 11/25/2022 LDL CHOLESTEROL due on 01/13/2023 ANNUAL PCP TEAM CHRONIC DISEASE VISIT due on 05/17/2023 DILATED RETINAL EXAM due on 06/04/2023 DTAP,TDAP,TD(10 - Td or Tdap) due on 02/19/2028 BONE DENSITY Completed SPIROMETRY Completed INFLUENZA Completed DEPRESSION ASSESSMENT Completed HEPATITIS C SCREENING Completed SHINGRIX VACCINE Completed COVID-19 VACCINE Completed PNEUMOCOCCAL: 65+ Completed ADVANCE DIRECTIVE DISCUSSION Discontinued ASSESSMENT/PLAN: 1. Acute pain of left knee - ICD9: 719.46, ICD10: M25.562 - XR KNEE GENERAL 4V AP BOTH/PA BOTH/LAT/MERC LEFT Ben Paulson APRN.MARCOS documented in this encounter [facility] 07-08-[address] [facility] 07-08-2022 Note HNO ID: [id number] Author: Gigi Marcelino RN Service: Nursing Author Type: Registered Nurse Type: Nursing Progress Note Filed: 07/08/2022 8:04 AM Note Text: [employer] tech not available, OR case cancelled per Dr Chavez [facility] 07-08-2022 Note HNO ID: [id number] Author: Jeremy Chavez MD Service: ? Author Type: Physician Type: Progress Notes Filed: 07/08/2022 7:53 AM Note Text: Order placed for lateral and AP x-rays [facility] 07-08-2022 Nurse Note [employer] tech not available, OR case cancelled per Dr Chavez documented in this encounter [facility] 07-08-2022 History of Present illness Narrative Order placed for lateral and AP x-rays documented in this encounter [facility] 07-08-2022 History and physical note UPDATED HISTORY AND PHYSICAL EXAMINATION SERVICE DATE: 07/08/2022 SERVICE TIME: 6:26 AM PHYSICAL EXAM MUST BE COMPLETED ON ADMISSION The History and Physical (completed in the past 30 days) has been reviewed and the patient has been examined. The contents accurately reflect the patient's condition with the following additions or revisions since the H&P was completed. Examination indicates no changes. This H&P can be found in the Electronic Medical Record dated 07/03/2022. SIGNATURE: Kasey De La Torre MD PATIENT NAME: Froy Sharma DATE: July 08, 2022 TIME: 6:26 AM Source Note - Britta Hanley PA-C - 07/03/2022 10:05 AM EDT Images from the original note were not included. HISTORY AND PHYSICAL EXAMINATION SERVICE DATE: 07/03/2022 SERVICE TIME: 2:11 PM PRIMARY CARE PHYSICIAN: Hitesh Maria DO REASON FOR VISIT: Froy Sharma is a 67 year old female who is scheduled for Procedure(s): REPLACE STIMULATOR GENERATOR BLADDER (Bilateral) REMOVE STIMULATOR LEAD BLADDER (Bilateral) FLUOROSCOPIC GUIDANCE/LOCALIZATION OF NEEDLE/CATHETER TIP FOR DIAG OR THERAPUETIC SPINE/PARASPINOUS INJECTION PROCEDURES (Bilateral) at the request of Dr. Jeremy Chavez MD for consultation. My final recommendation will be communicated back to the requesting physician by way of shared medical record or letter. 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 Neck Pain Breast Cancer (Hcc) Insomnia Mixed Stress and Urge Urinary Incontinence Hypertension Foraminal Stenosis of Cervical Region Cervical Radiculitis Somatic Dysfunction of Spine, Lumbar Somatic Dysfunction of Pelvic Region Somatic Dysfunction of Thoracic Region Lumbar Degenerative Disc Disease Lumbar Spondylosis Somatic Dysfunction of Spine, Cervical Somatic Dysfunction of Rib Somatic Dysfunction of Head Region Right Hip Pain Lumbar Stenosis With Neurogenic Claudication Posterior Tibial Tendinitis of Right Leg Malignant Hyperthermia Other Specified Glaucoma Prepatellar Bursitis, Left Knee Vitamin D Deficiency Palpitations Dyslipidemia Nonrheumatic Mitral Valve Regurgitation Recurrent Uti (Urinary Tract Infection) Goiter Multiple Thyroid Nodules Bilateral Leg Edema Chronic Left Shoulder Pain Si (Sacroiliac) Joint Dysfunction Unintentional Weight Loss Fatigue Hyperkeratosis of Skin Other Diabetic Neurological Complication Associated With Type 2 Diabetes Mellitus (Hcc) COVID-19 Immunization Status COVID-19 VACCINE (Series Information) Completed 10/22/2021 Imm Admin: COVID-19 booster vaccine, age 12+ yr, bivalent (MODERNA) 12/31/2020 Outside Immunization: COVID-19, mRNA, LNP-S, PF, 100 mcg/0.5mL dose or 50 mcg/0.25mL dose 06/06/2020 Imm Admin: COVID-19 original vaccine, full dose, monovalent (MODERNA) Only the first 3 history entries have been loaded, but more history exists. CHIEF COMPLAINT: h/o OAB s/p bladder stimulator HPI: Froy Sharma is a 67 year old female presenting for pre-anesthesia consultation. Pt has history of OAB s/p bladder stimulator placement on 06/19/22. She reports constant pain since having stimulator placed. She reports weakness in foot and leg. She also reports pain in her back, and states it feels like she is sitting on a metal bench when she is sitting. Above procedure recommended to manage symptoms. Procedure scheduled on 07/08/2022 at [facility]. REVIEW OF SYSTEMS: General: No weight loss, malaise or fevers. Neurological: No history of TIA's, stroke, REGISTERED NURSE AMBULATORY tumor, impaired sensorium, hemiplegia, paraplegia or quadraplegia. No neurological symptoms or problems. Respiratory: Positive for: asthma (on Singulair and albuterol PRN (uses rarely), follows with allergist immunologist at [facility]). Negative for: bronchitis, COPD, current cough, tobacco use, URI < 2 weeks and obstructive sleep apnea. Cardiovascular: +Raynaud's Positive for: hyperlipidemia and hypertension Negative for: arrhythmia, atrial fibrillation, CHF, DVT/PE, recent NC and murmur/valvular heart disease. GI: No history of GI symptoms or problems. No history of esophageal varices, recent ascites, or ETOH greater than 2 drinks per day. : See HPI. Negative for: dysuria, hematuria and renal failure. Endocrine: +Thyroid nodules - monitored annually with US. Positive for: diabetes mellitus (A1C 5.9% 01/2022, does not check BG at home). Patient's diabetes mellitus is controlled by oral agents. Negative for: hyperthyroidism, hypothyroidism and steroid for chronic problem. Hematology: Positive for: chronic anti-coagulation/platelet meds. Patient is on anti-coagulation/platelet medication(s): Aspirin. Negative for: anemia, factor V Leiden and thrombocytopenia. Oncology: +Hx of L breast cancer - 2016, s/p L mastectomy and radiation. Psych: Positive for: anxiety and depression. 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 Skin: Negative for lesions, rash and itching. 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 Juarez High cholesterol Hypermobility syndrome Hypertension Insomnia Lumbar stenosis Dr. Juarez Malignant hyperthermia Myalgia and myositis, unspecified Other specified glaucoma Dr. Motta Psoriasis Dr. Phelan Right lumbar radiculitis Rotator cuff tear, left Trigeminal neuralgia PAST SURGICAL HISTORY Procedure Laterality Date BREAST LUMPECTOMY HX Left 11/2015, 01/2016 CATARACT EXTRACTION HX Bilateral 02/2018, 05/2018 COLONOSCOPY 05/22/2009 [facility] ENDOMETRIAL BIOPSY 05/24/2009 EXTRACTION, ERUPTED TOOTH OR EXPOSED ROOT (ELEVATION AND/OR FORCEPS REMOVAL) 1977 FUSION OF FINGER TENDONS 08/24/2017 4 fingers MASTECTOMY BRA Left 05/2015 MASTECTOMY HX Left 05/28/2015 reconstructed with gel implant MASTOPEXY Right 05/2015 and again Feb 2016 after implant completed NEUROPLASTY &/TRANSPOS MEDIAN NRV CARPAL TUNNE Right 2017 Carpal tunnel decomp NIPPLE/AREOLA RECONSTRUCTION Right 05/2016 PAST SURGICAL HISTORY OF laser surgery right eye to repair blood vessels PAST SURGICAL HISTORY OF several surgeries on feet PAST SURGICAL HISTORY OF 06/2009 Taking Tendon and Making Thumb Ligament (Right Wrist) PAST SURGICAL HISTORY OF 01/2010 Removal of Extra Tendon at Wrist (Right) PAST SURGICAL HISTORY OF Pisform bone right hand PAST SURGICAL HISTORY OF 1985,1987 wrist surgery bilateral PAST SURGICAL HISTORY OF 04/2014 slt on right eye PAST SURGICAL HISTORY OF Right 07/2016 Right trigger finger, [facility] PAST SURGICAL HISTORY OF 2009 D&C, polypectomy for postmenopausal bleeding PAST SURGICAL HISTORY OF 10/10/2020 thumb surgery on right hand at [facility] (fused the thumb) PAST SURGICAL HISTORY OF 06/19/2022 INSERTION STIMULATOR GENERATOR BLADDER REPAIR FINGER TENDON 05/2012 right thumb TONSILLECTOMY PRIMARY/SECONDARY <AGE 12 Tonsillectomy FAMILY HISTORY Problem Relation Age of Onset Hypertension Mother Anesthesia Mother Stroke Mother Parkinson s Disease Mother Dementia Hypertension Father Blood Disease Father Mylofibrosis Diabetes Sister Heart Sister Myocardial Infarction/Triple Bypass Hypertension Sister other (DCIS) Sister grade 2 Diabetes Sister Cancer Sister melanoma Hypertension Sister Diabetes Maternal Grandmother Diabetes Maternal Grandfather Diabetes Paternal Grandmother Diabetes Paternal Grandfather Diabetes Maternal Aunt other (DCIS) Other Social History Tobacco Use Smoking status: Never Smokeless tobacco: Never Vaping Use Vaping Use: Never used Substance Use Topics Alcohol use: Not Currently Drug use: Never Prior to Admission medications as of 07/03/22 1422 Medication Sig Last Dose Taking metaxalone (SKELAXIN) 800 mg tablet Take 0.5-1 tablets by mouth three times daily as needed for pain (or muscle spasms). Yes gabapentin (NEURONTIN) 300 mg capsule Take 1 capsule by mouth twice daily for 180 days. Yes metFORMIN (GLUCOPHAGE) 500 mg tablet Take 1 tablet by mouth once daily. Yes Calcium Citrate 250 mg calcium tab Take 1 tablet by mouth once daily. Yes tolterodine ER (DETROL LA) 4 mg 24 hr capsule Take 1 capsule by mouth once daily. Yes irbesartan (AVAPRO) 150 mg tablet Take 1 tablet by mouth daily at bedtime. Patient taking differently: Take 150 mg by mouth every morning. Yes hydrocortisone 0.5 % ointment Apply to affected area twice daily. Yes albuterol HFA (VENTOLIN HFA) 90 mcg/actuation inhaler Inhale 2 Puffs as instructed every 4 hours as needed. Yes metFORMIN (GLUCOPHAGE) 500 mg tablet Take 1 tablet by mouth once daily. Yes meloxicam (MOBIC) 15 mg tablet TAKE 1 TABLET DAILY WITH FOOD FOR PAIN Yes atorvastatin (LIPITOR) 20 mg tablet Take 1 tablet by mouth once daily. Yes blood sugar diagnostic (BLOOD GLUCOSE TEST) test strip Test blood sugar(s) 1 times daily. Dx: Type 2 DM - Controlled E11.9 Insulin: No Yes Lancets lancets Test blood sugar(s) 1 times daily. Dx: Type 2 DM - Controlled E11.9 Insulin: No Yes ibuprofen (MOTRIN) 200 mg tablet Take 200 mg by mouth every 6 hours as needed. Yes aspirin, enteric coated (ASPIRIN, ENTERIC COATED) 81 mg EC tablet aspirin Aspirin 81 MG PO DAILY September 23, 2018 Active 09-23-2018 [facility] ([id number]) Yes cholecalciferol (VITAMIN D3) 1,000 unit tab tablet cholecalciferol Cholecalciferol (Vit D3) Active 1000 UNIT DAILY September 23, 2018 7:41pm 09-23-2018 [facility] ([id number]) Yes latanoprost (XALATAN) 0.005 % ophthalmic solution Use 1 Drop in both eyes daily at bedtime. Yes glucosamine/msm/chondroitin A (RUTOPLWUUJO-ACDSHU-CJJ ORAL) Yes montelukast (SINGULAIR) 10 mg tablet Take 1 tablet by mouth once daily. Yes mometasone (NASONEX) 50 mcg/actuation nasal spray Use 2 Sprays in the nose once daily. Yes cetirizine (ZYRTEC) 10 mg tablet Take 10 mg by mouth every other day. Yes THERAPEUTIC MULTIVITAMIN TAB Take one (1) tablet daily Yes No medication comments found. ALLERGIES Allergen Reactions Olmesartan Diarrhea Sulfamethoxazole-Tr* Swelling Tongue swelled. Altace [Ramipril] Swelling Swells up throat. Amlodipine Itching Atenolol Other: See Comments Extremely low pulse Baclofen Intolerance Headache 20 min after taking Cats Swelling irritates eyes,hand swelling Doxycycline GI Upset Fenofibrate Other: See Comments Sore Muscles Lyrica [Pregabalin] Intolerance tongue swelling Pineapple Anaphylaxis throat swells Ragweed Swelling Remeron [Mirtazapin* Other: See Comments Hyperactive and desire to danielle into things Trazodone Other: See Comments Bad Headache Tricor [Fenofibrate* Intolerance muscle pain [place] Swelling Throat and mouth swelling Erythromycin Intolerance turns bright red all over Serzone [Nefazodone* Intolerance States it makes her grouchy Wellbutrin [Bupropi* Intolerance States medication makes her nervous Objective PHYSICAL EXAM: General: alert and oriented and healthy appearance. Pertinent negatives noted - not distressed. Skin: normal color, no rash or lesions. HEENT: EOM intact and pupils equal round. Pertinent negatives noted - no carotid bruit. Cardiovascular: regular rate and rhythm, normal S1 and S2, no rub, murmurs, or gallop. Pulse characterized as regular.No radial pulse abnormalities. Respiratory: normal breath sounds, no wheezes or crackles. Abdomen: bowel sounds present. Extremities: no deformity, no edema or tenderness, no joint swelling or clubbing. Neurological: normal cognition and motor skills. Gait normal. No weakness or sensory deficit. PAIN ASSESSMENT: Pain Pain Level: 7 Pain Location: Back Duration Units: Unknown Frequency: Continuous VITALS: BP 142/77 Pulse 92 Temp (Src) 98.3 (Temporal) Resp 16 Ht 5' 2 (1.58m) Wt 130 lb (59.0kg) SpO2 98% LMP 09/05/2005 BMI 23.77 kg/(m^2). Diagnostic tests reviewed for today's visit: Lab Value Units Date High Low HB 14.0 g/dL 04/01/2022 15.5 11.5 HCT 44.4 % 04/01/2022 46.0 36.0 WBC 8.48 k/uL 04/01/2022 11.00 3.70 PLT 363 k/uL 04/01/2022 400 150 NA 139 mmol/L 01/13/2022 144 136 K 4.0 mmol/L 01/13/2022 5.1 3.7 GLUC 100 mg/dL 01/13/2022 99 74 BUN 15 mg/dL 04/01/2022 21 7 CREAT 0.55 mg/dL 04/01/2022 0.96 0.58 PTSEC No results within date range. INR No results within date range. APTT No results within date range. ALT 26 U/L 04/01/2022 38 7 AST 21 U/L 04/01/2022 35 13 TBILI 0.5 mg/dL 01/13/2022 1.3 0.2 TSH 2.440 mIU/L 01/13/2022 4.200 0.270 Lab Value Units Date High Low HCGQT No results within date range. UHCG No results within date range. HCG, BODY* No results within date range. Lab Value Units Date High Low ABORHD No results within date range. ABSCREEN No results within date range. Hemoglobin A1C (%) Date Value 01/13/2022 5.9 08/02/2021 5.6 05/06/2021 5.9 04/10/2020 6.1 09/26/2019 5.9 01/27/2019 5.9 08/10/2018 5.8 01/28/2018 5.8 Recent Results (from the past 8760 hour(s)) ECG COMPLETE Collection Time: 08/08/21 11:39 AM Result Value Ventricular Rate 71 Atrial Rate 71 P-R Interval 122 QRS Duration 88 QT Interval 404 QTC Calculation (Bazett) 439 Calculated P [place] 56 Calculated R [place] 66 Calculated T [place] 76 Impression NORMAL SINUS RHYTHM NORMAL ECG Recent Results (from the past 64764 hour(s)) ECHO Collection Time: 06/15/20 1:41 PM Impression CONCLUSIONS: - Technically difficult exam due to body habitus and breast augmentation. - Exam indication: Palpitations - The left ventricle is small. Left ventricular systolic function is normal. EF = 63 5% (2D biplane) Grade I left ventricular diastolic dysfunction. - The right ventricle is normal in size. Right ventricular systolic function is normal. - Anatomical bicuspid aortic valve. There is trace (trace - 1+) aortic valve regurgitation. The peak gradient is 5 mmHg. - Exam was compared with the prior echocardiographic exam performed on 03/22/2012, no significant change. * * * Final * * * Assessment Patient has the following medical conditions which may affect keri-operative course: Malignant hyperthermia Assessment: Pt reports hx of malignant hyperthermia. Email sent to Clement Muir (director of ASCU/PACU), CC'd Dr. Duong and Dr. Chavez, pt to be first case of the day. Asthma Assessment: Stable, on Singulair and albuterol PRN (uses rarely), follows with allergist immunologist at outside facility. Lungs CTAB, SpO2 98% on RA. Mixed hyperlipidemia Assessment: Stable, on RX. Hypertension Assessment: Stable, on RX. BP today 142/77. Fibromyalgia Assessment: Stable, managed on gabapentin and NSAIDs. Type 2 diabetes mellitus without complication (HCC) Assessment: Controlled on metformin, does not check BG at home, A1C 5.9% 01/2022. Multiple thyroid nodules Assessment: Stable, monitored with annual US. Breast cancer (HCC) Assessment: Hx L breast cancer in 2016, s/p lumpectomy then mastectomy and radiation. 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 De Activity Status Index: METS: Climb a flight of stairs or walk up a hill (5.50 METs) DASI Score: 5.5 Patient denies any chest pain or undue shortness of breath with the above physical activity. Clinical Frailty Scale: 3. Well, with treated comorbid disease STOP-Bang Score: Has or is being treated for high blood pressure Patient over 50 years old Denies snoring loudly Denies feeling tired, fatigued, or sleepy during the daytime Has not been observed to stop breathing or choking/gasping during sleep BMI less than or equal to 35 kg/m^2 Does not have a large neck Non-male patient STOP-Bang Score: 2 [id number] Score: Hypertension history: Yes Diabetes history: Yes [id number] Score: 2 ASA Class: 3 ANESTHESIA FINDINGS: Intubation History: No history of difficult intubation. No abnormal airway history Significant Anesthesia Considerations: patient or family history of malignant hyperthermia potential slow emergence Airway History: No history of difficult airway No abnormal airway history I - PHYSICAL EVALUATION AIRWAY Patient intubated: No. Tracheostomy tube not present Mallampati: I. TM distance: >3 FB. Neck ROM: full ROM without neurological symptoms. Short neck: no. Thick neck: no Lip Bite Test: II Microretrognathia/Micronagthia/Re cessed Chin: No DENTAL Dental findings: teeth intact. II - ANESTHESIA PLAN ASA Score: 3 Anesthetic Plan: general Beta April Monitoring Plan Post Procedure Analgesic Plan Prepared for Surgery: optimally prepared for surgery. Email sent to Clement Muir (director of ASCU/PACU), CC'd Dr. Duong and Dr. Chavez regarding FYI for hx of MH, need to be first case of the day. CONSULTS: Patient does not require consults for optimization at this time Planned Anesthetic: general The Following Tests/Procedures Have Been Initiated: No orders of the defined types were placed in this encounter. Instructions Given to Patient: Instructions located in the after visit summary. Patient given verbal and written preop instructions and voices comprehension and compliance. SIGNATURE: Britta Hanley PA-C PATIENT NAME: Froy Sharma DATE: July 03, 2022 TIME: 10:05 AM PAGER/CONTACT #: documented in this encounter [facility] 07-08-2022 Hospital Discharge instructions Kasey De La Torre MD - 07/08/2022 6:12 AM EDT documented in this encounter [facility] 07-03-2022 Note HNO ID: [id number] Author: Jeremy Chavez MD Service: ? Author Type: Physician Type: Progress Notes Filed: 07/03/2022 9:38 AM Note Text: Order placed for surgical request for Interstim lead and generator removal [facility] 07-02-[address] [facility] 06-29-[address] [facility] 06-11-2022 Miscellaneous Notes Is seeing ENT tomorrow 06/12. Nya Barba APRN.MARCOS Advised pt to go ahead and reach out to ENT to schedule since not improved. Review message from pt. Deysi Dela Cruz Ma Asked pt additional questions. Deysi Dela Cruz Ma documented in this encounter [facility] 06-03-[address] [facility] 06-02-2022 Miscellaneous Notes Patient has been identified by name and date of : Yes Requested Prescriptions Pending Prescriptions Disp Refills Calcium Citrate 250 mg calcium tab 90 tablet 2 Sig: Take 1 tablet by mouth once daily. RX INSTRUCTIONS: Patient aware RX will be sent to pharmacy. No need to notify patient. Patient last office visit: 05/16/22 Patient next office visit: none scheduled [facility] Alyce Minaya MA documented in this encounter [facility] 05-30-[address] [facility] 05-30-2022 History and physical note Surgeon: Jeremy Chavez MD Type of surgery: : Patient scheduled for surgery on 06/19/22 . Surgery Location: [facility] Diagnosis: Preop examination (primary encounter diagnosis) Dyslipidemia Nonrheumatic mitral valve regurgitation Malignant hyperthermia, initial encounter Primary hypertension BP 120/80 Pulse 72 Temp (Src) 98.1 (Temporal) Resp 14 Ht 5' 2.5 (1.59m) Wt 130 lb (59.0kg) SpO2 99% LMP 09/05/2005 BMI 23.38 kg/(m^2). 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 Juarez High cholesterol Hypermobility syndrome Hypertension Insomnia Lumbar stenosis Dr. Juarez Malignant hyperthermia Myalgia and myositis, unspecified Other specified glaucoma Dr. Motta Psoriasis Dr. Phelan Right lumbar radiculitis Rotator cuff tear, left Trigeminal neuralgia PAST SURGICAL HISTORY Procedure Laterality Date BREAST LUMPECTOMY HX Left 11/2015, 01/2016 CATARACT EXTRACTION HX Bilateral 02/2018, 05/2018 COLONOSCOPY 05/22/2009 [facility] ENDOMETRIAL BIOPSY 05/24/2009 EXTRACTION, ERUPTED TOOTH OR EXPOSED ROOT (ELEVATION AND/OR FORCEPS REMOVAL) 1977 FUSION OF FINGER TENDONS 08/24/2017 4 fingers MASTECTOMY BRA Left 05/2015 MASTECTOMY HX Left 05/28/2015 reconstructed with gel implant MASTOPEXY Right 05/2015 and again Feb 2016 after implant completed NEUROPLASTY &/TRANSPOS MEDIAN NRV CARPAL TUNNE Right 2017 Carpal tunnel decomp NIPPLE/AREOLA RECONSTRUCTION Right 05/2016 PAST SURGICAL HISTORY OF laser surgery right eye to repair blood vessels PAST SURGICAL HISTORY OF several surgeries on feet PAST SURGICAL HISTORY OF 06/2009 Taking Tendon and Making Thumb Ligament (Right Wrist) PAST SURGICAL HISTORY OF 01/2010 Removal of Extra Tendon at Wrist (Right) PAST SURGICAL HISTORY OF Pisform bone right hand PAST SURGICAL HISTORY OF 1985,1987 wrist surgery bilateral PAST SURGICAL HISTORY OF 04/2014 slt on right eye PAST SURGICAL HISTORY OF Right 07/2016 Right trigger finger, [facility] PAST SURGICAL HISTORY OF 2009 D&C, polypectomy for postmenopausal bleeding PAST SURGICAL HISTORY OF 10/10/2020 thumb surgery on right hand at [facility] (fused the thumb) REPAIR FINGER TENDON 05/2012 right thumb TONSILLECTOMY PRIMARY/SECONDARY <AGE 12 Tonsillectomy FAMILY HISTORY Problem Relation Age of Onset Hypertension Mother Anesthesia Mother Stroke Mother Parkinson s Disease Mother Dementia Hypertension Father Blood Disease Father Mylofibrosis Diabetes Sister Heart Sister Myocardial Infarction/Triple Bypass Hypertension Sister other (DCIS) Sister grade 2 Diabetes Sister Cancer Sister melanoma Hypertension Sister Diabetes Maternal Grandmother Diabetes Maternal Grandfather Diabetes Paternal Grandmother Diabetes Paternal Grandfather Diabetes Maternal Aunt other (DCIS) Other Social History Tobacco Use Smoking status: Never Smokeless tobacco: Never Vaping Use Vaping Use: Never used Substance Use Topics Alcohol use: Not Currently Drug use: Never tolterodine ER (DETROL LA) 4 mg 24 hr capsule Take 1 capsule by mouth once daily. Calcium Citrate 250 mg calcium tab Take 1 tablet by mouth once daily. hydrocortisone 0.5 % ointment Apply to affected area twice daily. albuterol HFA (VENTOLIN HFA) 90 mcg/actuation inhaler Inhale 2 Puffs as instructed every 4 hours as needed. metaxalone (SKELAXIN) 800 mg tablet Take 0.5-1 tablets by mouth three times daily as needed for pain (or muscle spasms). meloxicam (MOBIC) 15 mg tablet TAKE 1 TABLET DAILY WITH FOOD FOR PAIN atorvastatin (LIPITOR) 20 mg tablet Take 1 tablet by mouth once daily. blood sugar diagnostic (BLOOD GLUCOSE TEST) test strip Test blood sugar(s) 1 times daily. Dx: Type 2 DM - Controlled E11.9 Insulin: No Lancets lancets Test blood sugar(s) 1 times daily. Dx: Type 2 DM - Controlled E11.9 Insulin: No metFORMIN (GLUCOPHAGE) 500 mg tablet Take 1 tablet by mouth once daily. ibuprofen (MOTRIN) 200 mg tablet Take 200 mg by mouth every 6 hours as needed. aspirin, enteric coated (ASPIRIN, ENTERIC COATED) 81 mg EC tablet aspirin Aspirin 81 MG PO DAILY September 23, 2018 Active 09-23-2018 [facility] ([id number]) latanoprost (XALATAN) 0.005 % ophthalmic solution Use 1 Drop in both eyes daily at bedtime. glucosamine/msm/chondroitin A ([id number]-OUU ORAL) montelukast (SINGULAIR) 10 mg tablet Take 1 tablet by mouth once daily. mometasone (NASONEX) 50 mcg/actuation nasal spray Use 2 Sprays in the nose once daily. cetirizine (ZYRTEC) 10 mg tablet Take 10 mg by mouth every other day. THERAPEUTIC MULTIVITAMIN TAB Take one (1) tablet daily solifenacin (VESICARE) 5 mg tablet Take 1 tablet by mouth once daily. (Patient not taking: Reported on 05/30/2022) irbesartan (AVAPRO) 150 mg tablet Take 1 tablet by mouth daily at bedtime. (Patient taking differently: Take 150 mg by mouth every morning.) cephALEXin (KEFLEX) 250 mg capsule Take 1 capsule by mouth once daily. (Patient not taking: Reported on 05/30/2022) metFORMIN (GLUCOPHAGE) 500 mg tablet Take 1 tablet by mouth once daily. (Patient not taking: Reported on 05/30/2022) gabapentin (NEURONTIN) 300 mg capsule Take 1 capsule by mouth twice daily for 180 days. cholecalciferol (VITAMIN D3) 1,000 unit tab tablet cholecalciferol Cholecalciferol (Vit D3) Active 1000 UNIT DAILY September 23, 2018 7:41pm 09-23-2018 [facility] ([id number]) (Patient not taking: Reported on 05/30/2022) ALLERGIES Allergen Reactions Olmesartan Diarrhea Sulfamethoxazole-Tr* Swelling Tongue swelled. Altace [Ramipril] Swelling Swells up throat. Amlodipine Itching Atenolol Other: See Comments Extremely low pulse Baclofen Intolerance Headache 20 min after taking Cats Swelling irritates eyes,hand swelling Fenofibrate Other: See Comments Sore Muscles Lyrica [Pregabalin] Intolerance tongue swelling Pineapple Anaphylaxis throat swells Ragweed Swelling Remeron [Mirtazapin* Other: See Comments Hyperactive and desire to danielle into things Trazodone Other: See Comments Bad Headache Tricor [Fenofibrate* Intolerance muscle pain [place] Swelling Throat and mouth swelling Erythromycin Intolerance turns bright red all over Serzone [Nefazodone* Intolerance States it makes her grouchy Wellbutrin [Bupropi* Intolerance States medication makes her nervous COVID VACCINATION STATUS: Fully vaccinated PHYSICAL EXAMINATION: Alert and oriented, No acute distress, Healthy appearance Lungs clear to auscultation. No wheezing, rhonchi, rales. RRR without murmur, gallop, or rubs. No ectopy Laboratory and Testing: Lab Value Units Date High Low HB 14.0 g/dL 04/01/2022 15.5 11.5 HCT 44.4 % 04/01/2022 46.0 36.0 WBC 8.48 k/uL 04/01/2022 11.00 3.70 PLT 363 k/uL 04/01/2022 400 150 NA 139 mmol/L 01/13/2022 144 136 K 4.0 mmol/L 01/13/2022 5.1 3.7 GLUC 100 mg/dL 01/13/2022 99 74 BUN 15 mg/dL 04/01/2022 21 7 CREAT 0.55 mg/dL 04/01/2022 0.96 0.58 PTSEC No results within date range. INR No results within date range. APTT No results within date range. ALT 26 U/L 04/01/2022 38 7 AST 21 U/L 04/01/2022 35 13 TBILI 0.5 mg/dL 01/13/2022 1.3 0.2 TSH 2.440 mIU/L 01/13/2022 4.200 0.270 Lab Value Units Date High Low HCGQT No results within date range. UHCG No results within date range. HCG, BODY* No results within date range. Lab Value Units Date High Low ABORHD No results within date range. ABSCREEN No results within date range. Hemoglobin A1C (%) Date Value 01/13/2022 5.9 08/02/2021 5.6 05/06/2021 5.9 04/10/2020 6.1 09/26/2019 5.9 01/27/2019 5.9 08/10/2018 5.8 01/28/2018 5.8 EKG READING: Confirmed - Procedure Date : Aug 08 2021 11:39:55 Edit Date : Aug 19 2021 13:43:26 Diagnosis: NORMAL SINUS RHYTHM NORMAL ECG Confirmed by MANUEL RAGSDALE M.D. ([id number]) on 08/19/2021 1:43:24 PM OTHER TESTS: Echo: Date: 06/2020, Results: CONCLUSIONS: - Technically difficult exam due to body habitus and breast augmentation. - Exam indication: Palpitations - The left ventricle is small. Left ventricular systolic function is normal. EF = 63 5% (2D biplane) Grade I left ventricular diastolic dysfunction. - The right ventricle is normal in size. Right ventricular systolic function is normal. - Anatomical bicuspid aortic valve. There is trace (trace - 1+) aortic valve regurgitation. The peak gradient is 5 mmHg. - Exam was compared with the prior echocardiographic exam performed on 03/22/2012, no significant change. THESIOLOGY REVIEW: MOUTH OPENING/TMJ : Full jaw ROM MICROGNATHIA/OVERBITE: no MP SCORE: MP 1 UPPER LIP BITE TEST: Class I - Lower incisors can bite the upper lip above the gwendolyn line DENTITION: Intact THYROMENTAL DIST: WNL SHORT NECK: No NECK FLEX: Full ROM NECK EXTENSION: Full ROM INTUBATION HISTORY: no h/o diff intubation ADVERSE ANESTHESIA EVENT: Malignant Hyperthermia (MH) - notice sent [facility] anesthesiologist. ANESTHETIC OPTIONS: Final anesthesia management options will be discussed on day of surgery. PAIN MANAGEMENT OPTIONS: Final pain management plan will be discussed on the day of surgery. OPTIMIZATION STATUS: Patient optimized for OR, pending DOS review. ASA Class: 3 Jocelyn Alex PA-C May 30, 2022 8:00 AM documented in this encounter [facility] 05-30-2022 Instructions Tuyet Roberto RN - 05/30/2022 8:20 AM EDT PATIENT INSTRUCTIONS PRIOR TO SURGERY Please read these instructions carefully. Your surgery may be cancelled if you do not follow these instructions. PATIENTS WITHOUT DELAYED STOMACH EMPTYING: You can eat a regular diet on the day before your surgery up until midnight. Light, low-fat meals that are rich in carbohydrates are preferred, as these improve your healing after surgery. Do not to have any solid food to eat after midnight prior to surgery (this includes no gum, mints, smoking). You may drink small amounts (up to 12 oz) of clear liquids up until 2 hours prior to your arrival time. Clear liquids include water, fruit juices without pulp, carbonated beverages (i.e. lenora mercedes), clear tea and black coffee, clear broth, popsicles and jello (no milk). We recommend that you drink carbohydrate-rich beverages such as Gatorade, Boost Breeze and Clearfast . It is safe to drink these if you have type 2 diabetes mellitus. No alcohol the day before or day of surgery. PATIENTS WITH DELAYED STOMACH EMPTYING: I have been instructed not to have anything to eat or drink after midnight prior to my surgery (this includes no gum, mints, smoking). No alcohol the day before or day of surgery. Please start Miralax (polyethylene glycol) 17 g (1 measured capful or 1 packet dissolved in any clear liquid) once daily in the evening, beginning four days before your surgery. MEDICATIONS: Unless your surgeon tells you differently, STOP THESE MEDICATIONS SEVEN DAYS PRIOR TO SURGERY: ibuprofen (Motrin /Naproxen/Aleve/Advil) aspirin vitamin E herbal medications and supplements diet pills [id number] medications Taking acetaminophen (Tylenol) is okay. If you are taking any of the following blood thinning medications, discuss these with your surgeon and your gas prover or primary care physician: Aspirin Clopidogrel (Plavix) Eliquis (Apixaban) Ticagrelor (Brilinta) Prasugrel (Efficient) Ticlodipine (Ticlid) Warfarin (Coumadin) Dibigatran (Pradaxa) Rivaroxaban (Xarelto) If you stop a blood-thinning medication, ask your surgeon when to resume taking it. If you are on oral hormone replacement (estrogen or progesterone), ask your surgeon if you need to stop this medication prior to surgery. Patients with diabetes Do not take morning diabetes medication (pills) on the morning of surgery If you are on insulin, ask your doctor about how to take your insulin on the morning of surgery. If your surgery is delayed, notify the nurse or check-in desk that you have diabetes. If you use inhalers for breathing, use them as needed prior to surgery and bring them to the hospital. For all other medications, you will receive individualized instructions on which medication(s) you should take on the morning of surgery. Oral medications should be taken a couple sips of water. Your doctor may order you medications to take in the preoperative area of the hospital on the day of surgery. These medications are used to improve pain control after surgery, and include: Acetaminophen (Tylenol) Gabapentin (Neurontin) Celecoxib (Celebrex) GENERAL Do not wear jewelry, body piercing(s), makeup, nail estonian, hairpins, or contacts on the day of surgery. Leave valuables and money at home or with family members. If you have Obstructive Sleep Apnea and use a CPAP/BiPAP machine, bring your mask, tubing, and machine with you on the day of surgery. If you are going home on the day of surgery, a responsible person must drive you home. It is suggested that someone stay with you for 24 hours. A business development professional or cabdriver is NOT a responsible caregiver. INFECTION PREVENTION Please notify your doctor if you have any signs of an infection (i.e. fever, severe cough, nasal congestion, pain with urination, abnormal vaginal discharge, etc). Shower the night before surgery AND the morning of surgery with Hibiclens (provided by your surgeon). If you are allergic to Hibiclens or unable to obtain the Hibiclens, please wash with antibacterial soap. Wash your body from the neck down, focusing on your abdomen, belly button, groins, and external genitalia. Do not forget to scrub any skin folds and creases. No lotions, oils, creams, or powders after your shower. Underarm deodorant is okay. No shaving (abdominal or pubic hair) or douching the day before surgery. You may be asked to apply an antiseptic solution called Chlorhexidine Gluconate (CHG) which will be provided to you on arrival to the preop area. Hand washing is extremely important in preventing infection (for both you as the patient and for the caregivers). HOSPITALIZATION Before you leave the hospital, you typically need to be able to eat/drink, urinate, and have your pain controlled with oral medication. Your surgeon or other members of your surgeon s team will discuss any other specific medical issues related to your discharge with you. Your surgeon may order intermittent compression sleeves. These are massaging leg pumps to help prevent blood clots after surgery. It is also very important that you walk as soon as possible and as frequently as possible after surgery. This will help decrease your risk of blood clots, exercise your lungs and speed up your recovery after surgery. If you are admitted to the hospital overnight, you will be given an incentive spirometer, which is a breathing machine that will help make sure that you are taking deep breaths and expanding your lungs while in the hospital. [facility] TEAM At the [facility], we have a multidisciplinary team of caregivers that includes fellows, residents, nurse practitioners (civil litigation attorney), physician assistants (PAs), clinical nurse specialists (CNSs), nurses, medical assistants (MAs), patient care nursing assistants (PCNAs), social workers, therapeutic case manager and many others. We all have different roles and responsibilities but we all are here to help you. If you spend the night in the hospital, a physician from your care team will see you the day after your surgery. At times, scheduling does not permit your surgeon to see you in the hospital the day after surgery. If this occurs, another physician on the urogynecology care team will see you in the hospital. THE DAY BEFORE SURGERY If you are having surgery at [facility]: On the day before your surgery, you must call [phone] to find out your surgery arrival time. If you are having surgery at a [facility] ([facility] center, [facility]): You will receive a call the day before surgery to give you your surgery arrival time. THE DAY OF SURGERY/CHECK IN Surgery Location Parking Check-in Location [facility] [address] surgery center (unless otherwise instructed) [facility] [address] [facility]. [place], [place] Parking garage connected to hospital or second baker Registration desk, first floor, [facility] [address] [place], [place] Parking lot in front of building [address] (elevator to lower level) [facility] [address] [place], [place] Parking garage next to hospital or [facility] Atrium, Surgical Waiting Desk [facility] [address] [facility]. [place], [place] Parking garage across from main entrance. Main entrance [facility] [address] [place] [place], [place] Park in the back of the hospital, go to Entrance A. Take elevators to 1st floor and enter into the Surgery Department [facility] NEUROMOD[facility] UROGYNECOLOGY POSTOP INSTRUCTIONS ACTIVITY No heavy lifting/pushing/pulling for 1 week. Do not lift anything more than 10 lbs, vacuum, push heavy doors or grocery carts, etc. You may climb stairs as tolerated. You may return to work when directed by your physician. Please contact your doctor if you need any return to work letters or medical leave paperwork to be completed. WOUND CARE You may leave the hospital with a bandage on your incision. If you are undergoing the testing phase with an external stimulator, do not remove the bandage covering your incision. If you do not have a bandage covering your incision, wash your incision daily with a mild antibacterial soap and water. Pat your incision dry with a clean towel. Wash your hands frequently, especially before touching your incision. PAIN MANAGEMENT After you go home, you should take the prescribed acetaminophen (Tylenol) and ibuprofen (Motrin) as directed. We recommend rotating the timing of these medications so that you are taking one of these medications every 3 to [address], you can help prevent pain. After the first 72 hours, you can take these medications as needed. OTHER MEDICATIONS Your doctor may have prescribed you an antibiotic to take for several days after your procedure. Please complete the entire course of antibiotics. Please check your discharge instructions about when to resume other medications. WHAT TO EXPECT AT HOME Recovery from surgery is generally 1 week, but sometimes longer for more strenuous activity. WHEN TO CALL YOUR DOCTOR: Fever (>100.4 F or 38.0 C) or chills. Incision problems such as redness, warmth, swelling, or foul-smelling drainage. Severe pain not relieved with pain medication. Pain and swelling in your legs, especially if it is only on one side and not the other. Pain with urination, cloudy urine, or foul-smelling urine. Or if you have any other problems or questions. CALL 911 OR GO TO THE EMERGENCY ROOM IF YOU HAVE: shortness of breath, difficulty breathing, or chest pain. UROGYNECOLOGY PHYSICIAN CONTACT INFORMATION Dr. Arrignton Dr. Matias ([facility]) Dr. Lang Dr. Duke Dr. Malik Dr. Ayers Dr. Hoff Dr. Chavez Eliceo Beaver, COOK CANDY Armani Alonso, COOK CANDY Domingo Roberto, COOK CANDY Jacque Terrell, COOK CANDY After 4:30 pm or on holidays or weekends, call: or . Ask the package line relief operator to page the 'EXTRUSION PROCESS OPERATOR tactical air control party manager.' [facility] [place] Patients ONLY: After 4:30 PM or on holidays or weekends, call and you will be connected to the answering service/physician tactical air control party manager. Funnel Coater, [employer] For Expecteens stimulator (Julieta Mckenna - [phone]) Please DO NOT use MyChart for post-surgery concerns. Complete two day bladder diary and bring it to your next appointment. documented in this encounter [facility] 05-30-2022 History of Present illness Narrative DATE OF SERVICE: 05/30/2022 PROBLEM: Froy Sharma presents for pre-op teaching. PRE-OP DIAGNOSIS: overactive bladder, SCHEDULED SURGERY AND DATE: 06/19/22 INSERTION STIMULATOR GEN PRIMARY SURGEON: Jeremy Chavez MD NURSING PREOP ASSESSMENT: Fevers, chills, cough, or nasal congestion: No Vaginal itching, burning, discharge, or odor: No Pain with urination, frequency, urgency, cloudy or foul smelling urine: No If yes to any of the above then MD notified: Not Applicable ADVANCED CARE PLANNING: Does the patient have an advanced directive: No Does [facility] have a copy of the patient's advanced directive: No Was advanced directive given to the patient: explained how to find on mychart PATIENT LEARNING ASSESSMENT: Individual patient/family learning needs evaluated and addressed: Yes Cognitive ability: Alert and oriented Motivation to learn: Interested Factors affecting learning: None Physical limitations affecting learning: None Patient learns best by: Verbal Instruction Method of instruction: Verbal instruction Instructions provided to: Patient via telephone. Written material provided prior to education appointment. Family support: Unable to assess - Family not present PRE- AND POST-OPERATIVE TEACHING Pre-operative teaching and supplemental material provided and reviewed with patient: Written pre-op and post-op instructions Antibacterial soap: explained in pre op Pre-operative instructions provided and reviewed with patient/family: No eating, drinking, or smoking after midnight prior to surgery unless otherwise directed No alcohol the day before surgery Medications as prescribed by anesthesia, internal medicine, surgeon, or DIRECTOR OF PURCHASING Stop NSAIDs, Aspirin (ASA), vitamins, herbal supplements, herbal teas, and diet pills 7-10 days prior to surgery OK to take tylenol prn pain unless otherwise directed by physician Call surgery coordinators if any other questions about surgery date or pre-op appointments Bowel prep instructions: NPO after midnight Day of surgery instructions provided and reviewed with patient/family: Arrival time (call surgical coordinators on the office day prior to surgery for verification) No jewelry, body piercing, makeup, contacts, lotions, nail estonian on fingers, or anything in hair on arrival to surgery Wear low healed shoes and loose fitting clothing Leave all valuables at home or with a family member Directions to [facility] and [facility] Parking/parking validation on the day prior to surgery Admission/check in (Report to DESK J1-9 for surgery) Holding area Placement of IV Surgical positioning Family waiting area Surgical recovery room Post-operative instructions provided and reviewed with patient/family: SEE PATIENT INSTRUCTION SECTION FOR DETAILS. ACTIVITY - No heavy lifting (>5-10 lbs), no pushing/pulling, OK to climb stairs DRIVING - No driving for 3 weeks unless prior approval from MD, OK to ride in a car. DIET - Advance diet as tolerated and as ordered by MD, drink 8 glasses of water a day, eat a diet high in protein and fiber unless otherwise directed by MD. CATHETER - Will be inserted during surgery, you may go home with a catheter for 7-10 days and will have to come back to the office for a voiding trial, UTI symptoms reviewed and patient instructed to notify MD of any of these symptoms. INCISION CARE - Keep incision clean and dry, kenny to be removed 7-10 days after surgery, steristrips do not need to be removed by MD VULVAR CARE - Sitz baths TID and prn, keep vulva clean/dry/open to air, apply medicated cream as prescribed by surgeon. BATHING - OK to shower after surgery unless otherwise directed by MD, no tub baths. PAIN MEDICATION - IV pain medication after surgery, IV JAVA JSF DEVELOPER if ordered by MD, discharged home with a prescription for PO pain medication, pain management after surgery, side effects of pain medication (including constipation, dizziness, drowsiness, and medication interactions). VAGINAL CARE - Pelvic rest x6 weeks unless otherwise directed by MD. DVT PROPHYLAXIS - Early ambulation, SCDs, injectable anticoagulants (heparin, lovenox, etc) RESPIRATORY - Incentive spirometer, coughing/deep breathing exercises, ambulation. RETURN TO WORK - As directed by physician, please send any FMLA papers to physician's hospice patient care secretary. SYMPTOMS TO NOTIFY MD - Fever, chills, nausea, vomiting, increased or severe pain, heavy vaginal bleeding, foul smelling vaginal drainage, pain or swelling in extremities. URGENT SYMPTOMS - Call 911 or go to ER if any shortness of breath, difficulty breathing, or chest pain. HOW TO CONTACT PHYSICIAN - Physician's office phone number given to patient, if after hours patient instructed to call package line relief operator and ask for tactical air control party manager radio frequency design engineer onc resident. KIKE program offered to patient: No, Additional teaching as indicated by patient/family learning needs. PATIENT LEARNING EVALUATION & FOLLOW UP PLAN: Patient verbalizes understanding of pre- and post-operative instructions but reinforcement still needed. Follow up plan: Contact information given. Patient has a post-op appointment scheduled: Yes Referral (recommentation): Educator: Tuyet Roberto RN [facility] documented in this encounter [facility] 05-30-2022 Instructions Jocelyn Alex PA-C - 05/30/2022 8:15 AM EDT PATIENT PREOPERATIVE INSTRUCTIONS Jeremy Chavez MD has scheduled you for your procedure at this surgery center: [facility]: [phone] -- [address] [facility] [address] [address]. Please read below carefully for your personalized instructions. Dietary Restrictions: - No solid food after midnight. - You may have 12 ounces of clear liquids (water, clear juices such as apple juice or gatorade, carbonated beverages, clear tea, black coffee, jello) until 2 hours before scheduled arrival at facility. Is Patient Diabetic:Yes Preoperative Instructions for Patient's with Diabetes Mellitus Diabetic Medication Instructions:Please take the following meds at your usual dose the day before surgery. DO NOT TAKE THE MORNING OF SURGERY; Byetta, Bydureon, Trajenta, Symlin, Victoza, Trulicity, Metformin, Actos/Pioglitazone and Amaryl/Glimepiride Medications: Unless instructed differently below, stay on all of your medications until your surgery. Approved medications to take the morning of surgery with a sip of water: NEURONTIN, INHALERS IF NEEDED If you start any new medications after today's visit, please contact the surgeon's office. Blood Thinning Medications: - Stop NSAIDS (Ibuprofen, Advil, Aleve, Motrin, Celebrex, Mobic, etc.) 7 days before surgery, as directed by your surgeon. - Stop Aspirin 7 days before surgery, as directed by your surgeon. - Stop Vitamin E, ALL multi-vitamins, herbals and dietary supplements 7 days before surgery. - You may take Tylenol (Acetaminophen) or any of your pain medications that do not contain aspirin or NSAIDS as needed. Important Reminders: If you are on dialysis, please check with your dialysis center or waste management specialist to see if any adjustments need to be made to your schedule for the week of your surgery - Candy, mints, and tobacco products are NOT permitted the morning of surgery. - Hearing aids, dentures and glasses may be worn the morning of surgery. - NO jewelry, body piercings, makeup, hairpins or contacts are to be worn the day of surgery. If you develop symptoms such as a fever, cold, or flu, or have other changes to your health within TWO DAYS of scheduled surgery or the morning of surgery, please contact the surgery center above. Personal Belongings: -Please have photo ID and insurance cards. -If you do not have a copy of advance directives on file with us, please bring a copy with you on the day of surgery. - Leave ALL valuables and money at home or with family members. For Outpatient Procedures: - YOU MUST HAVE A RESPONSIBLE HOTEL OR MOTEL ROOM SERVICE SUPERVISOR TAKE YOU HOME. A SHIP SCALER OR GLOBAL CLIMATE CHANGE RESEARCHER CANNOT BE MADE A RESPONSIBLE HOTEL OR MOTEL ROOM SERVICE SUPERVISOR. - We recommend that a responsible person stays with you overnight to take care of you. - You cannot stay in a hotel alone after outpatient surgery. You will not be permitted to have your surgery, if you do not have someone to take care of you. Arrival Time for Surgery: - The Surgery Center or hospital where you are having surgery will call the afternoon before surgery (or Thursday for Thursday surgery) with a scheduled arrival time. - If you have not heard by 4 pm, please contact the surgery center above. Please be aware that emergency situations arise, which may delay or change your surgical time. If this happens, we will notify you as soon as possible and regret any inconvenience. If you already have an Advance Directive, please fax a copy to [phone] or email to for it to be added to your chart. If you do not have an Advance Directive, you can find the appropriate form and more information at [email or web address]. We recommend that you complete the Advance Directive form found on the website and bring it with you the day of your surgery. It can be witnessed and scanned into your chart that day. Jocelyn Alex PA-C documented in this encounter [facility] 05-26-[address] [facility] 05-26-2022 History of Present illness Narrative POPULATION HEALTH NAVIGATION OUTREACH Action/I [employer] Care Gaps 4.5.23 Discuss/Due for: Medicare Annual Wellness exam, Dilated Retinal Eye Exam due 01/21/2023, Advance Directives, Mammogram Screening due 11/25/2022, Colorectal Cancer Screening (Cologuard) Future Diabetic Labs - Hgb a1c due 07/14/2022 - Urine Albumin due 07/03/2022 Outcome: 1st attempt - Left Message 2nd attempt - MyChart message sent Patient Identified by Name and : NO Outreach Outcome/Action Unable to reach patient: Left message MyChart message sent Did you use a PCP flex slot to schedule this appointment? N/A Reason for Outreach Care Gap or Scheduling/Wellness visits Payer: Payor: [employer] MEDICARE / Plan: [employer] MEDICARE PPO / Product Type: PPO / Care Gap Reviewed:: Annual Wellness visit Breast Cancer screening Colorectal Cancer Screening Reminder: Reminder note to check Health Maintenance for items below Health Maintenance items due: There are no preventive care reminders to display for this patient. Navigation Signature: Kitty Dominique MA May 26, 2022 10:38 AM documented in this encounter [facility] 05-16-[address] [facility] 05-14-2022 Miscellaneous Notes Called patient, verified name and date of . Per patient, she is taking detrol LA 4 mg and it is not improving her urinary symptoms. Is interested in trying a different medication until she can get interstim placed in June. Denies concerns for UTI, per chart review, symptoms consistent with reported symptoms at last virtual visit with Dr. Chavez on 04/28/2022. Advised patient that new medications can take up to 4 weeks to take effect, patient verbalized understanding and expressed she still wished to try new medication. Discussed r/b/a of vesicare. Patient to stop detrol and start taking 5 mg vesicare daily and will message office if she is tolerating medication and would like to increase to 10 mg a day. The following approved medication requests have been transmitted electronically. Requested Prescriptions Signed Prescriptions Disp Refills solifenacin (VESICARE) 5 mg tablet 30 tablet 3 Sig: Take 1 tablet by mouth once daily. Authorizing Provider: JORGE WEBSTER APRN.CNP Called patient, verified name and . Patient reports that her urinary urgency has picked in the last week. She is now unable to make it to the bathroom in time before wetting her pants. She is wearing a depends and changing this at least 2x/day She is getting up at least 2x/night, but she reports she is already wet before she gets up. She is also taking detrol, she says she has been on this for years, but this doesn't really help. She denies burning with urination and hematuria. She has interstim placement schedule in June with Dr. Chavez. However, patient would like to know how she can get some relief before her procedure. Diego Croft RN May 14, 2022 9:35 AM 04/28/22 ASSESSMENT: Froy Sharma is a 66 year old female with T2DM, urinary incontinence and overactive bladder PLAN: 1) Overactive Bladder: - Options discussed today include repeat botox injections (increase dose from 100 units to 200 units of Botox), trial another OAB medication (trospium), and/or InterStim Procedure. The risks and benefits of all options were discussed in-depth today. We also discussed neuromodulation. InterStim is used to manage both OAB with leak and fecal incontinence. Discussed that Interstim is now MRI-compatible although she would need to turn off device when she had MRI. Also discussed the need for PNE in the office and the an anesthetic procedures in the OR. - After a thorough discussion, she would like to proceed with the InterStim procedure. The patient was informed to complete a voiding diary for 3 days prior to the PNE. 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 She would like her procedure done in [facility]. I am going to place the surgical request today (PNE on June 13, 2022 and procedure on June 19, 2022). This was a Video visit, including two-way audio and video communication, in lieu of an in-person visit. The patient provided verbal consent to participate in the telehealth visit. I spent a total of 30 minutes on the date of the service which included preparing to see the patient, [id number] patient care, completing clinical documentation, obtaining and/or reviewing separately obtained history, counseling and educating the patient/family/caregiver, ordering medications, tests, or procedures, and communicating with other HCPs (not separately reported). ATTESTATION: By signing my name below, I, Nicole Starks, attest that this documentation has been prepared under the direction and in the presence of Dr. Chavez. Electronically signed, Kristie Padgett April 28, 2022 8:25 AM Patient: Froy Martinezhler : 1955 Provider: Jeremy Chavez MD Caller: Pt Caller Phone #: [phone] (home) [phone] (cell) Reason for call: Pt calling with concern about her ongoing issue with her urgency. Date of next visit: Appointments for Next 60 Days Date Time Provider Location Dept Phone 05/30/2022 8:40 AM PACC KIRA 1 Kira [facility] [phone] 06/02/2022 11:00 AM URO EXTRUSION PROCESS OPERATOR NURSE ESCOBEDO [facility] [phone] 06/13/2022 2:30 PM [facility] [phone] documented in this encounter [facility] 05-09-[address] [facility] 05-09-2022 History of Present illness Narrative Froy Sharma is a 66 year old female who presents for vaginal pruritis, burning, and discharge for 1 week(s). Vaginal discharge: moderate amount, clear, cotton, and green. Itching: YES Dyspareunia: N/A Fever/chills: No Abdominal pain: No Bladder: Negative for dysuria or frequency Bowel: No blood in stool, pain with BM, tarry stool, persistent diarrhea or constipation Are you currently taking any medications to treat vaginitis: Yes, Monistat x 2 night Do you use feminine sprays, douches or deodorants: No Past medical, surgical, social history, medications and allergies reviewed and updated. OBJECTIVE: BP 110/72 Wt 129 lb (58.5kg) LMP 09/05/2005 GENERAL: Well developed, well nourished in no apparent distress PELVIC: external genitalia normal, normal Bartholin's glands, urethra, Elmira's glands, no vulvar lesions, no cervical lesions, physiologic discharge present, normal appearing perineal body and perianal region, atrophic changes ASSESSMENT/PLAN: 1. Vaginal discharge - ICD9: 623.5, ICD10: N89.8 - BACT/CARO VAG GRAM STAIN - will notify pt of results - follow up as needed Belen Whitney APRN.CNP Medical Decision Making: Problems: Moderate: New problem with uncertain prognosis Data: Unique test(s) ordered: 2 Risk: Low: Low risk from testing/treatment Medical Decision Making Level: 3 - Low documented in this encounter [facility] 05-07-2022 Miscellaneous Notes Pt. informed. Please inform patient that her thyroid US shows 2 small nodules present, repeat US in 1 year. No further current testing needing since both are <1 cm in size Hitesh Maria DO documented in this encounter [facility] 05-02-[address] [facility] 05-02-2022 History of Present illness Narrative Radiology Service Progress Note PATIENT NAME: Froy Sharma DATE OF SERVICE: May 02, 2022 TIME: 8:16 AM PATIENT IDENTITY VERIFICATION COMPLETED USING TWO (2) IDENTIFIERS: Name and Date of confirmed by patient verbally. FALL SCREENING: Has the patient had 2 falls in the last year or 1 fall with injury or currently using an Ambulatory Assistive Device (Walker, Cane, Wheelchair, Crutches, etc.)? No PATIENT GENDER DATA: Female. status: : No status: NO. PATIENT RELEVANT IMPLANT DATA REVIEWED: Not Applicable RADIOLOGY DEPARTMENT: Ultrasound PERIPHERAL IV DATA: Not applicable SIGNED BY: Gabrielle Diaz RDMS May 02, 2022 8:16 AM documented in this encounter [facility] 04-29-[address] [facility] 04-29-2022 History of Present illness Narrative [facility] DME ISSUE NOTE Patient identified by name and date: Yes Subjective: Froy Sharma is a 66 year old female seen today for fitting and sweet pickled fruit maker of custom foot orthotics. Equipment Owned: none DME Delivery: Pt was educated on wear schedule and care of custom foot orthotics. Pt was educated on the option of having orthotics refurbished as needed in the future as long as shell is performing it's intended function well. Pt was educated on approximate cost of refurbishing orthotics and an approximate time frame when this might be necessary. Pt was urged to follow the wear schedule and to call with any questions or concerns. Pt was instructed to start with wearing orthotics one hour the first day and then to add one hour of wear time per day until time clerk wear is achieved. Pt was educated on how to remove insoles from shoes and then place orthotics in shoes. The fit of orthotics was assessed with pt standing, with and without shoes. The comfort of orthotics was assessed with pt standing and walking with orthotics in shoes. Pt denied any rubbing or pinching and felt that fit of custom orthotics was correct. Contact information for this therapist was provided to patient. Custom biomechanical foot orthotics with serial number: #[id number] were issued to patient and proof of receipt form signed by pt and therapist. All specifications for custom foot orthotics can be found in orthotic evaluation visit note. Planned Interventions: Follow up as needed for brace fitting/issues. Billing:[facility]: Orthotics Management and Training ([id number]): 1:1 time: 15 minutes (1 unit: 8-22 mins) Equipment: [id number] x2 pair of custom foot orthotics Total time: 15 minutes Sigifredo Paris PT documented in this encounter [facility] 04-28-[address] [facility] 04-28-2022 History of Present illness Narrative UROGYN VIRTUAL VISIT PROGRESS NOTE This is a virtual visit. It required patient-provider interaction for the medical decision making as documented below. Patient identified by and name. I obtained consent from the patient to complete the visit virtually. Froy Sharma is a 66 year old female seen to discuss InterStim Procedure. LAST VISIT: 04/01/2022 (Telephone with Eliceo Beaver) Called patient to follow up on UTI, bladder symptoms. Since completing the Macrobid she feels that she can empty her bladder better. She has tried taking the detrol every 2-3 days: on days she does not take it, she voids more easily but has more urgency. Re: recurrent UTI- she has not been on antibiotic PPX. Discussed options, she agrees to trial of Keflex PPX as below Pt to update office in a few weeks- if she tolerates this well, will need 90 day Rx sent to [facility]. She can d/c Detrol and f/u with Dr Chavez as scheduled to discuss Interstim History since last visit: - Feels like last botox injection did help as much as previous injections. - Urinating about 5 times/ day and twice/night. - She empties her bladder more on Keflex. - She is wearing 1 pad/day. She is leaking during the night. Sometimes she has to increase to 2 pads/day. 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 Juarez High cholesterol Hypermobility syndrome Hypertension Insomnia Lumbar stenosis Dr. Juarez Malignant hyperthermia Myalgia and myositis, unspecified Other specified glaucoma Dr. Motta Psoriasis Dr. Phelan Right lumbar radiculitis Rotator cuff tear, left Trigeminal neuralgia PAST SURGICAL HISTORY Procedure Laterality Date BREAST LUMPECTOMY HX Left 11/2015, 01/2016 CATARACT EXTRACTION HX Bilateral 02/2018, 05/2018 COLONOSCOPY 05/22/2009 [facility] ENDOMETRIAL BIOPSY 05/24/2009 EXTRACTION, ERUPTED TOOTH OR EXPOSED ROOT (ELEVATION AND/OR FORCEPS REMOVAL) 1977 FUSION OF FINGER TENDONS 08/24/2017 4 fingers MASTECTOMY BRA Left 05/2015 MASTECTOMY HX Left 05/28/2015 reconstructed with gel implant MASTOPEXY Right 05/2015 and again Feb 2016 after implant completed NEUROPLASTY &/TRANSPOS MEDIAN NRV CARPAL TUNNE Right 2017 Carpal tunnel decomp NIPPLE/AREOLA RECONSTRUCTION Right 05/2016 PAST SURGICAL HISTORY OF laser surgery right eye to repair blood vessels PAST SURGICAL HISTORY OF several surgeries on feet PAST SURGICAL HISTORY OF 06/2009 Taking Tendon and Making Thumb Ligament (Right Wrist) PAST SURGICAL HISTORY OF 01/2010 Removal of Extra Tendon at Wrist (Right) PAST SURGICAL HISTORY OF Pisform bone right hand PAST SURGICAL HISTORY OF 1985,1987 wrist surgery bilateral PAST SURGICAL HISTORY OF 04/2014 slt on right eye PAST SURGICAL HISTORY OF Right 07/2016 Right trigger finger, [facility] PAST SURGICAL HISTORY OF 2009 D&C, polypectomy for postmenopausal bleeding PAST SURGICAL HISTORY OF 10/10/2020 thumb surgery on right hand at [facility] (fused the thumb) REPAIR FINGER TENDON 05/2012 right thumb TONSILLECTOMY PRIMARY/SECONDARY <AGE 12 Tonsillectomy FAMILY HISTORY Problem Relation Age of Onset Hypertension Mother Anesthesia Mother Stroke Mother Parkinson s Disease Mother Dementia Hypertension Father Blood Disease Father Mylofibrosis Diabetes Sister Heart Sister Myocardial Infarction/Triple Bypass Hypertension Sister other (DCIS) Sister grade 2 Diabetes Sister Cancer Sister melanoma Hypertension Sister Diabetes Maternal Grandmother Diabetes Maternal Grandfather Diabetes Paternal Grandmother Diabetes Paternal Grandfather Diabetes Maternal Aunt other (DCIS) Other Social History Tobacco Use Smoking status: Never Smokeless tobacco: Never Vaping Use Vaping Use: Never used Substance Use Topics Alcohol use: Not Currently Drug use: Never Current Outpatient Medications Medication Sig Dispense Refill Calcium Citrate 250 mg calcium tab Take 1 tablet by mouth once daily. 30 tablet 5 irbesartan (AVAPRO) 150 mg tablet Take 1 tablet by mouth daily at bedtime. 14 tablet 0 felodipine ER (PLENDIL) 5 mg 24 hr tablet Take 1 tablet by mouth once daily. 30 tablet 5 cephALEXin (KEFLEX) 250 mg capsule Take 1 capsule by mouth once daily. 30 capsule 0 tolterodine ER (DETROL LA) 4 mg 24 hr capsule Take 1 capsule by mouth once daily. 90 capsule 3 hydrocortisone 0.5 % ointment Apply to affected area twice daily. albuterol HFA (VENTOLIN HFA) 90 mcg/actuation inhaler Inhale 2 Puffs as instructed every 4 hours as needed. 8 g 5 metFORMIN (GLUCOPHAGE) 500 mg tablet Take 1 tablet by mouth once daily. 90 tablet 1 metaxalone (SKELAXIN) 800 mg tablet Take 0.5-1 tablets by mouth three times daily as needed for pain (or muscle spasms). 90 tablet 1 gabapentin (NEURONTIN) 300 mg capsule Take 1 capsule by mouth twice daily for 180 days. 180 capsule 1 meloxicam (MOBIC) 15 mg tablet TAKE 1 TABLET DAILY WITH FOOD FOR PAIN 90 tablet 1 atorvastatin (LIPITOR) 20 mg tablet Take 1 tablet by mouth once daily. 90 tablet 1 blood sugar diagnostic (BLOOD GLUCOSE TEST) test strip Test blood sugar(s) 1 times daily. Dx: Type 2 DM - Controlled E11.9 Insulin: No 100 Strip 11 Lancets lancets Test blood sugar(s) 1 times daily. Dx: Type 2 DM - Controlled E11.9 Insulin: No 100 Each 11 metFORMIN (GLUCOPHAGE) 500 mg tablet Take 1 tablet by mouth once daily. 20 tablet 0 ibuprofen (MOTRIN) 200 mg tablet Take 200 mg by mouth every 6 hours as needed. aspirin, enteric coated (ASPIRIN, ENTERIC COATED) 81 mg EC tablet aspirin Aspirin 81 MG PO DAILY September 23, 2018 Active 09-23-2018 [facility] ([id number]) cholecalciferol (VITAMIN D3) 1,000 unit tab tablet cholecalciferol Cholecalciferol (Vit D3) Active 1000 UNIT DAILY September 23, 2018 7:41pm 09-23-2018 [facility] ([id number]) latanoprost (XALATAN) 0.005 % ophthalmic solution Use 1 Drop in both eyes daily at bedtime. glucosamine/msm/chondroitin A ([place] ORAL) montelukast (SINGULAIR) 10 mg tablet Take 1 tablet by mouth once daily. mometasone (NASONEX) 50 mcg/actuation nasal spray Use 2 Sprays in the nose once daily. cetirizine (ZYRTEC) 10 mg tablet Take 10 mg by mouth every other day. 0 THERAPEUTIC MULTIVITAMIN TAB Take one (1) tablet daily 0 No current facility-administered medications for this visit. ALLERGIES Allergen Reactions Olmesartan Diarrhea Sulfamethoxazole-Tr* Swelling Tongue swelled. Altace [Ramipril] Swelling Swells up throat. Amlodipine Itching Atenolol Other: See Comments Extremely low pulse Baclofen Intolerance Headache 20 min after taking Cats Swelling irritates eyes,hand swelling Fenofibrate Other: See Comments Sore Muscles Lyrica [Pregabalin] Intolerance tongue swelling Pineapple Anaphylaxis throat swells Ragweed Swelling Remeron [Mirtazapin* Other: See Comments Hyperactive and desire to danielle into things Trazodone Other: See Comments Bad Headache Tricor [Fenofibrate* Intolerance muscle pain [place] Swelling Throat and mouth swelling Erythromycin Intolerance turns bright red all over Serzone [Nefazodone* Intolerance States it makes her grouchy Wellbutrin [Bupropi* Intolerance States medication makes her nervous REVIEW OF SYSTEMS: ROS collected on 04/28/2022 by Nicole Starks; reviewed and confirmed by me today. GENERAL: feeling well without fatigue, no recent change in weight PHYSICAL EXAMINATION: VIDEO EXAM: (if completed, performed via video enabled technology) GENERAL: alert and appropriate, in no distress, well-hydrated, well nourished, and happy, smiling, interactive ASSESSMENT: Froy Sharma is a 66 year old female with T2DM, urinary incontinence and overactive bladder PLAN: 1) Overactive Bladder: - Options discussed today include repeat botox injections (increase dose from 100 units to 200 units of Botox), trial another OAB medication (trospium), and/or InterStim Procedure. The risks and benefits of all options were discussed in-depth today. We also discussed neuromodulation. InterStim is used to manage both OAB with leak and fecal incontinence. Discussed that Interstim is now MRI-compatible although she would need to turn off device when she had MRI. Also discussed the need for PNE in the office and the an anesthetic procedures in the OR. - After a thorough discussion, she would like to proceed with the InterStim procedure. The patient was informed to complete a voiding diary for 3 days prior to the PNE. 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 She would like her procedure done in [facility]. I am going to place the surgical request today (PNE on June 13, 2022 and procedure on June 19, 2022). This was a Video visit, including two-way audio and video communication, in lieu of an in-person visit. The patient provided verbal consent to participate in the telehealth visit. I spent a total of 30 minutes on the date of the service which included preparing to see the patient, [id number] patient care, completing clinical documentation, obtaining and/or reviewing separately obtained history, counseling and educating the patient/family/caregiver, ordering medications, tests, or procedures, and communicating with other HCPs (not separately reported). ATTESTATION: By signing my name below, Nicole Aranda, attest that this documentation has been prepared under the direction and in the presence of Dr. Chavez. Electronically signed, Kristie Padgett April 28, 2022 8:25 AM Provider Attestation: I, Jeremy Chavez MD, personally performed the services described in this documentation. All medical record entries made by the scribe were at my direction and in my presence. I have reviewed the chart and discharge instructions (if applicable) and agree that the record reflects my personal performance and is accurate and complete. Jeremy Chavez MD documented in this encounter [facility] 04-25-2022 Miscellaneous Notes I believe this one does not have vitamin D in it. The following approved medication requests have been transmitted electronically. Requested Prescriptions Signed Prescriptions Disp Refills Calcium Citrate 250 mg calcium tab 30 tablet 5 Sig: Take 1 tablet by mouth once daily. Nya Barba APRN.CNP Please see pt message Magda Posada documented in this encounter [facility] 04-14-[address] [facility] 04-11-2022 Miscellaneous Notes Spoke with pt gave information provided. Pt voices understanding She needs to continue to try to contact her conduit helper. She can try taking Benadryl (diphenhydramine) 25mg and Pepcid (famotidine) 20mg to see if this helps her sx. If they don't resolve or worsen, she needs to go to the emergency department. Nya Barba APRN.MARCOS Patient calling, states that her conduit helper started her on Felodipine and she has only taken it once today. It is extended release. She noticed that she has red splotches on her skin,hands and feet are prickly and tingling, she has a headache and lightheaded, and her heart rate and BP are all over the place today. She has called and sent a message to the doctor but she has not gotten a response. Patient is asking if there is something she should take something for the reaction or just let it wear off. Please advise. documented in this encounter [facility] 04-11-2022 Miscellaneous Notes Froy's mail order will be delayed just over a week. Please call a short term order of the irbesartan to the [facility] for 14 days. Pharmacy verified in [facility] Patient has been identified by name and date of : Yes Patient aware RX will be sent to pharmacy. No need to notify patient. Patient phones for refill(s): Requested Prescriptions Pending Prescriptions Disp Refills irbesartan (AVAPRO) 150 mg tablet 14 tablet 0 Sig: Take 1 tablet by mouth daily at bedtime. Date of last office visit : 03/12/2022 Date of next office visit : Visit date not found Last 2 Encounter Wt Readings: Date: Wt: 04/01/2022 58.5 kg (129 lb) 03/14/2022 59 kg (130 lb) Not applicable Please advise. Kitty May Pss documented in this encounter [facility] 04-11-2022 Miscellaneous Notes Jose--03/12/22 Nov--nothing scheduled Last refill--07/03/21 90 with 1 refill Last labs--04/01/22 documented in this encounter [facility] 04-01-2022 Miscellaneous Notes Called patient to follow up on UTI, bladder symptoms. Since completing the Macrobid she feels that she can empty her bladder better. She has tried taking the detrol every 2-3 days: on days she does not take it, she voids more easily but has more urgency. Re: recurrent UTI- she has not been on antibiotic PPX. Discussed options, she agrees to trial of Keflex PPX as below Pt to update office in a few weeks- if she tolerates this well, will need 90 day Rx sent to [facility]. She can d/c Detrol and f/u with Dr Chavez as scheduled to discuss Interstim. The following approved medication requests have been transmitted electronically. Requested Prescriptions Pending Prescriptions Disp Refills cephALEXin (KEFLEX) 250 mg capsule 30 capsule 0 Sig: Take 1 capsule by mouth once daily. Eliceo Beaver APRN.MARCOS documented in this encounter [facility] 04-01-[address] [facility] 04-01-2022 History of Present illness Narrative Molly Mccartney MD Froy Sharma March 31, 2022 Referring Provider: PCP: Hitesh Maria DO Chief Complaint: Patient presents with: New Patient HPI:Froy Sharma is a 66 year old female who comes here today for Raynaud's phenomena. The patient reports a long history of Raynaud's phenomena of over 20 years. Initially, it happened infrequently. She only noted some paleness in the tip of her fingers and toes along with some coldness. However, over the past few valerio, it becomes much more frequent and intense. It can happen when she just touches something cold in her refrigerator. She now notes classic triphasic color changes. It is also very painful. Per the patient, she tried medications for Raynaud's in the past. She tried amlodipine but it caused itching and was discontinued. She tried nifedipine and it caused nausea and general fatigue and it was also discontinued. She has not been on any treatment for Raynaud's for quite some time. She also carries a diagnosis of hypermobility joint syndrome and she has some degree of aching pain in her joint all the time. However, no obvious joint swelling or stiffness. No rash, malar rash, frequent oral ulcer, pleuritic chest pain, photosensitivity, diarrhea, bloody stool or other CTD symptoms. Family history is positive for rheumatoid arthritis in great-grandmother. The patient denies family history of SLE, , psoriasis, IBD, uveitis, other autoimmune diseases. 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 Juarez High cholesterol Hypermobility syndrome Hypertension Insomnia Lumbar stenosis Dr. Juarez Malignant hyperthermia Myalgia and myositis, unspecified Other specified glaucoma Dr. Motta Psoriasis Dr. Phelan Right lumbar radiculitis Rotator cuff tear, left Trigeminal neuralgia PAST SURGICAL HISTORY Procedure Laterality Date BREAST LUMPECTOMY HX Left 11/2015, 01/2016 CATARACT EXTRACTION HX Bilateral 02/2018, 05/2018 COLONOSCOPY 05/22/2009 [facility] ENDOMETRIAL BIOPSY 05/24/2009 EXTRACTION, ERUPTED TOOTH OR EXPOSED ROOT (ELEVATION AND/OR FORCEPS REMOVAL) 1976 FUSION OF FINGER TENDONS 08/24/2017 4 fingers MASTECTOMY BRA Left 05/2015 MASTECTOMY HX Left 05/28/2015 reconstructed with gel implant MASTOPEXY Right 05/2015 and again Feb 2016 after implant completed NEUROPLASTY &/TRANSPOS MEDIAN NRV CARPAL TUNNE Right 2017 Carpal tunnel decomp NIPPLE/AREOLA RECONSTRUCTION Right 05/2016 PAST SURGICAL HISTORY OF laser surgery right eye to repair blood vessels PAST SURGICAL HISTORY OF several surgeries on feet PAST SURGICAL HISTORY OF 06/2009 Taking Tendon and Making Thumb Ligament (Right Wrist) PAST SURGICAL HISTORY OF 01/2010 Removal of Extra Tendon at Wrist (Right) PAST SURGICAL HISTORY OF Pisform bone right hand PAST SURGICAL HISTORY OF 1985,1987 wrist surgery bilateral PAST SURGICAL HISTORY OF 04/2014 slt on right eye PAST SURGICAL HISTORY OF Right 07/2016 Right trigger finger, [facility] PAST SURGICAL HISTORY OF 2009 D&C, polypectomy for postmenopausal bleeding PAST SURGICAL HISTORY OF 10/10/2020 thumb surgery on right hand at [facility] (fused the thumb) REPAIR FINGER TENDON 05/2012 right thumb TONSILLECTOMY PRIMARY/SECONDARY <AGE 12 Tonsillectomy Social History Tobacco Use Smoking status: Never Smokeless tobacco: Never Vaping Use Vaping Use: Never used Substance Use Topics Alcohol use: Not Currently Drug use: Never Health Maintenance: There are no preventive care reminders to display for this patient. Immunization History Administered Date(s) Administered COVID-19 booster vaccine, age 12+ yr, bivalent (MODERNA) 10/22/2021 COVID-19 original vaccine, full dose, monovalent (MODERNA) 05/09/2020 06/06/2020 12/31/2020 DT(PEDIATRIC) 01/25/1966 07/15/1973 05/30/1997 DTP 1955 10/31/1957 06/05/1960 Influenza Seasonal - High Dose - Age 65+ 11/19/2020 Influenza Seasonal Inj Age 3+ 11/18/2013 11/02/2014 10/05/2019 10/15/2019 Influenza Seasonal Inj Quad Age 6 Mo - 64 Yrs 12/13/2016 11/07/2017 11/12/2018 Influenza Vaccine, Split-Non Spec 12/09/2005 12/15/2006 11/03/2008 11/04/2008 11/04/2008 11/13/2009 11/30/2010 11/15/2011 12/04/2012 09/04/2015 11/12/2018 Influenza Vaccine, Whole 09/26/2015 OPV 02/09/1961 04/09/1961 06/09/1961 Pneumococcal-13 Vac Conjugate 07/10/2013 Pneumovax 08/05/2013 09/21/2020 Tdap (Age 7+) 05/18/2007 Tetanus Diphtheria Booster (Age >7) Pres Free 02/18/2018 Zostavax 10/10/2016 Zoster Recombinant (Shingrix) 10/06/2019 12/16/2019 Current Outpatient Medications Medication Sig Dispense Refill nitrofurantoin monohydrate and macrocrystal (MACROBID) 100 mg capsule Take 1 capsule by mouth twice daily for 5 days. 10 capsule 0 tolterodine ER (DETROL LA) 4 mg 24 hr capsule Take 1 capsule by mouth once daily. 90 capsule 3 calcium-cholecalciferol, D3, (OSCAL+D 250) 250 mg-3.125 mcg (125 unit) per tablet Take 1 tablet by mouth once daily. 30 tablet 0 hydrocortisone 0.5 % ointment Apply to affected area twice daily. Ascorbic Acid (VITAMIN C) 1,000 mg tablet Take 1 tablet by mouth once daily. 90 tablet 3 albuterol HFA (VENTOLIN HFA) 90 mcg/actuation inhaler Inhale 2 Puffs as instructed every 4 hours as needed. 8 g 5 metFORMIN (GLUCOPHAGE) 500 mg tablet Take 1 tablet by mouth once daily. 90 tablet 1 metaxalone (SKELAXIN) 800 mg tablet Take 0.5-1 tablets by mouth three times daily as needed for pain (or muscle spasms). 90 tablet 1 gabapentin (NEURONTIN) 300 mg capsule Take 1 capsule by mouth twice daily for 180 days. 180 capsule 1 meloxicam (MOBIC) 15 mg tablet TAKE 1 TABLET DAILY WITH FOOD FOR PAIN 90 tablet 1 atorvastatin (LIPITOR) 20 mg tablet Take 1 tablet by mouth once daily. 90 tablet 1 irbesartan (AVAPRO) 150 mg tablet Take 1 tablet by mouth daily at bedtime. 90 tablet 1 blood sugar diagnostic (BLOOD GLUCOSE TEST) test strip Test blood sugar(s) 1 times daily. Dx: Type 2 DM - Controlled E11.9 Insulin: No 100 Strip 11 Lancets lancets Test blood sugar(s) 1 times daily. Dx: Type 2 DM - Controlled E11.9 Insulin: No 100 Each 11 metFORMIN (GLUCOPHAGE) 500 mg tablet Take 1 tablet by mouth once daily. 20 tablet 0 ibuprofen (MOTRIN) 200 mg tablet Take 200 mg by mouth every 6 hours as needed. aspirin, enteric coated (ASPIRIN, ENTERIC COATED) 81 mg EC tablet aspirin Aspirin 81 MG PO DAILY September 23, 2018 Active 09-23-2018 [facility] ([id number]) cholecalciferol (VITAMIN D3) 1,000 unit tab tablet cholecalciferol Cholecalciferol (Vit D3) Active 1000 UNIT DAILY September 23, 2018 7:41pm 09-23-2018 [facility] ([id number]) latanoprost (XALATAN) 0.005 % ophthalmic solution Use 1 Drop in both eyes daily at bedtime. glucosamine/msm/chondroitin A ([id number] ORAL) montelukast (SINGULAIR) 10 mg tablet Take 1 tablet by mouth once daily. mometasone (NASONEX) 50 mcg/actuation nasal spray Use 2 Sprays in the nose once daily. cetirizine (ZYRTEC) 10 mg tablet Take 10 mg by mouth every other day. 0 THERAPEUTIC MULTIVITAMIN TAB Take one (1) tablet daily 0 No current facility-administered medications for this visit. ALLERGIES Allergen Reactions Olmesartan Diarrhea Sulfamethoxazole-Tr* Swelling Tongue swelled. Altace [Ramipril] Swelling Swells up throat. Amlodipine Itching Atenolol Other: See Comments Extremely low pulse Baclofen Intolerance Headache 20 min after taking Cats Swelling irritates eyes,hand swelling Fenofibrate Other: See Comments Sore Muscles Lyrica [Pregabalin] Intolerance tongue swelling Pineapple Anaphylaxis throat swells Ragweed Swelling Remeron [Mirtazapin* Other: See Comments Hyperactive and desire to danielle into things Trazodone Other: See Comments Bad Headache Tricor [Fenofibrate* Intolerance muscle pain [place] Swelling Throat and mouth swelling Erythromycin Intolerance turns bright red all over Serzone [Nefazodone* Intolerance States it makes her grouchy Wellbutrin [Bupropi* Intolerance States medication makes her nervous Physical Exam: BP 126/78 Pulse 78 Temp (Src) 99 (Left Tympanic) Wt 129 lb (58.5kg) LMP 09/05/2005 General: Not pale, no jaundice, not in acute distress Head: Normocephalic, atraumatic Eyes: No redeye, no discharge ENT: No oral/nasal ulcer Neck: No lymphadenopathy Lungs: Normal breath sound, no adventitious sound Abdomen: Soft, not tender CV: Normal S1 S2, no murmur, no rub, pulse regular Skin: No rash, no malar rash, no telangiectasia, no pitting nail/onycholysis, no gross periungual telangiectasia Neuro: Grossly intact, motor power 5 all Joints LEFT Shoulder Full ROM, not tender Elbow Full ROM, not tender, not swollen Wrist Full ROM, not tender, not swollen 2nd MCP Not tender, not swollen 3rd MCP Not tender, not swollen 4th MCP Not tender, not swollen 5th MCP Not tender, not swollen 1st IP Not tender, not swollen 2nd PIP Not tender, not swollen 3rd PIP Not tender, not swollen 4th PIP Not tender, not swollen 5th PIP Not tender, not swollen 2nd DIP Not tender, not swollen 3rd DIP Not tender, not swollen 4th DIP Not tender, not swollen 5th DIP Not tender, not swollen Hip Full ROM Knee Full ROM, not tender, no effusion Ankle Not tender, not swollen Achilles Not tender, not swollen Squeezing test Negative RIGHT Shoulder Full ROM, not tender Elbow Full ROM, not tender, not swollen Wrist Full ROM, not tender, not swollen 2nd MCP Not tender, not swollen 3rd MCP Not tender, not swollen 4th MCP Not tender, not swollen 5th MCP Not tender, not swollen 1st IP Not tender, not swollen 2nd PIP Not tender, not swollen 3rd PIP Not tender, not swollen 4th PIP Not tender, not swollen 5th PIP Not tender, not swollen 2nd DIP Not tender, not swollen 3rd DIP Not tender, not swollen 4th DIP Not tender, not swollen 5th DIP Not tender, not swollen Hip Full ROM Knee Full ROM, not tender, no effusion Ankle Not tender, not swollen Achilles Not tender, not swollen Squeezing test Negative Labs: Serology: CRP: No results found for: CCPABG RF: Rheumatoid Factor (IU/mL) Date Value 12/24/2011 <7 03/13/2005 7 ESR: No results found for: WSR CRP CRP (mg/dL) Date Value 12/24/2011 0.1 11/07/2009 <0.3 05/05/2007 <0.3 03/13/2005 <0.3 Quantiferon:No components found for: QTBA Cr: No components found for: CR CBC: Imaging: Impression: 66 year old female presents for rheumatology evaluation at [facility] on March 31, 2022. Raynaud's phenomena Joint hypermobility syndrome It is more likely that she has primary Raynaud's rather than Raynaud's secondary to any underlying systemic rheumatologic autoimmune diseases given the long duration of her Raynaud's and absence of signs and symptoms of inflammatory disease/stigmata of connective tissue disease. Nonetheless, to be prudent, I will obtain a comprehensive set of serologies and inflammatory markers to rule out any underlying systemic rheumatic autoimmune diseases with certainty. I plan to prescribe nicardipine for her if I can confirm that she has primary Raynaud's. Recommendations/Plan Plan discussed with patient Return Visit: I will contact her through [employer] for results. We will make a plan after the results are available. I spent a total of 50 minutes on the date of the service which included preparing to see the patient, [id number] patient care, completing clinical documentation, obtaining and/or reviewing separately obtained history, performing a medically appropriate examination, counseling and educating the patient/family/caregiver, and ordering medications, tests, or procedures. Molly Mccartney MD Referring Provider: PCP: Hitesh Maria DO Answers submitted by the patient for this visit: Review of Systems Rheumatology (Submitted on 03/25/2022) Fever : No Recent Unintentional Weight Change: No Eye Pain: No Eye Redness: No Vision Disturbance: No Eye Dryness: Yes Nose Bleeds: No Sores in your Mouth: No Trouble Swallowing: No Dry Mouth: No Chest Pain: No Leg Swelling: No A Cough: No Shortness of Breath: No Pain with Breathing: No Heartburn: No Abdominal Pain: No Diarrhea: No Black Tarry Stools: No Blood in Urine: No Pain or Burning with Urination: No Joint Pain or Stiffness: No Muscle Weakness: No Muscle Aches: No Joint Swelling: No Morning Stiffness in Joints: No A Rash: No Skin Color Changes: No Hair Loss: No Nail Changes: No Headaches: No Numbness: No Memory Loss: No Swollen Glands: No documented in this encounter [facility] 03-31-[address] [facility] 03-27-2022 Miscellaneous Notes Images from the original note were not included. Called patient LVM to call the office regarding results Jorge Webster APRN.MARCOS A Urogyn Nurse Triage Pool 1 hour ago (8:42 AM) KB Hi! Please advise patient that her urine culture was positive for an infection and treatment with macrobid was sent to her pharmacy. Thank you!!! Patient with urine culture positive for Citrobacter freundii complex, susceptible to macrobid. Medications and allergies reviewed. Treatment sent to pharmacy. The following approved medication requests have been transmitted electronically. Requested Prescriptions Signed Prescriptions Disp Refills nitrofurantoin monohydrate and macrocrystal (MACROBID) 100 mg capsule 10 capsule 0 Sig: Take 1 capsule by mouth twice daily for 5 days. Authorizing Provider: JORGE WEBSTER APRN.CNP documented in this encounter [facility] 03-26-2022 Miscellaneous Notes documented in this encounter [facility] 03-25-2022 Miscellaneous Notes This was discontinued by Anne yesterday during VV. Completing. Penelope Morillo RN March 25, 2022 9:43 AM Attempted to reach patient. VM left for patient to call office. Left VM asking if she needs refill. Kiah Johnson RN documented in this encounter [facility] 03-24-[address] [facility] 03-24-2022 Miscellaneous Notes Addended by: ELICEO BEAVER on: 03/24/2022 10:16 AM Modules accepted: Orders documented in this encounter [facility] 03-24-2022 History of Present illness Narrative UROGYN VIRTUAL VISIT PROGRESS NOTE This is a virtual visit. It required patient-provider interaction for the medical decision making as documented below. Patient identified by and name. I obtained consent from the patient to complete the visit virtually. Froy Sharma is a 66 year old female seen for follow up of intradetrusor Botox. S/P intradetrusor Botox (100 units) on 02/24/2022 History since last visit: Froy is doing OK. She notes that this Botox injection did not seem to work as well as some of the other injections that she had in the past. She notes 75% improvement in her symptoms. She is most bothered by urgency and has UUI about 2 times/day. She wonders if she might have a UTI. She had dysuria a few days ago and notices that volume of urine voided fluctuates. She denies voiding dysfunction or symptoms of urinary retention and did not have to self catheterize after this procedure. She has had several UTIs over the past year. She has history of breast cancer and does not use vaginal estrogen. She continues to take Detrol 4 mg p.o. daily but wonders if she should consider other options. Dr. Chavez mention trying a different medication. She has also been thinking about getting the InterStim. She completed pelvic floor physical therapy several years ago. UDS in 2018 showed DOI, MAURICE Urinary Incontinence: yes, at least 2 times/day with urgency. She has MAURICE with sneezing at times but this is less of an issue. 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 Juarez High cholesterol Hypermobility syndrome Hypertension Insomnia Lumbar stenosis Dr. Juarez Malignant hyperthermia Myalgia and myositis, unspecified Other specified glaucoma Dr. Motta Psoriasis Dr. Phelan Right lumbar radiculitis Rotator cuff tear, left Trigeminal neuralgia PAST SURGICAL HISTORY Procedure Laterality Date BREAST LUMPECTOMY HX Left 11/2015, 01/2016 CATARACT EXTRACTION HX Bilateral 02/2018, 05/2018 COLONOSCOPY 05/22/2009 [facility] ENDOMETRIAL BIOPSY 05/24/2009 EXTRACTION, ERUPTED TOOTH OR EXPOSED ROOT (ELEVATION AND/OR FORCEPS REMOVAL) 1976 FUSION OF FINGER TENDONS 08/24/2017 4 fingers MASTECTOMY BRA Left 05/2015 MASTECTOMY HX Left 05/28/2015 reconstructed with gel implant MASTOPEXY Right 05/2015 and again Feb 2016 after implant completed NEUROPLASTY &/TRANSPOS MEDIAN NRV CARPAL TUNNE Right 2017 Carpal tunnel decomp NIPPLE/AREOLA RECONSTRUCTION Right 05/2016 PAST SURGICAL HISTORY OF laser surgery right eye to repair blood vessels PAST SURGICAL HISTORY OF several surgeries on feet PAST SURGICAL HISTORY OF 06/2009 Taking Tendon and Making Thumb Ligament (Right Wrist) PAST SURGICAL HISTORY OF 01/2010 Removal of Extra Tendon at Wrist (Right) PAST SURGICAL HISTORY OF Pisform bone right hand PAST SURGICAL HISTORY OF 1985,1987 wrist surgery bilateral PAST SURGICAL HISTORY OF 04/2014 slt on right eye PAST SURGICAL HISTORY OF Right 07/2016 Right trigger finger, [facility] PAST SURGICAL HISTORY OF 2009 D&C, polypectomy for postmenopausal bleeding PAST SURGICAL HISTORY OF 10/10/2020 thumb surgery on right hand at [facility] (fused the thumb) REPAIR FINGER TENDON 05/2012 right thumb TONSILLECTOMY PRIMARY/SECONDARY <AGE 12 Tonsillectomy FAMILY HISTORY Problem Relation Age of Onset Hypertension Mother Anesthesia Mother Stroke Mother Parkinson s Disease Mother Dementia Hypertension Father Blood Disease Father Mylofibrosis Diabetes Sister Heart Sister Myocardial Infarction/Triple Bypass Hypertension Sister other (DCIS) Sister grade 2 Diabetes Sister Cancer Sister melanoma Hypertension Sister Diabetes Maternal Grandmother Diabetes Maternal Grandfather Diabetes Paternal Grandmother Diabetes Paternal Grandfather Diabetes Maternal Aunt other (DCIS) Other Social History Tobacco Use Smoking status: Never Smokeless tobacco: Never Vaping Use Vaping Use: Never used Substance Use Topics Alcohol use: Not Currently Drug use: Never Current Outpatient Medications Medication Sig Dispense Refill hydrocortisone 0.5 % ointment Apply to affected area twice daily. Ascorbic Acid (VITAMIN C) 1,000 mg tablet Take 1 tablet by mouth once daily. 90 tablet 3 albuterol HFA (VENTOLIN HFA) 90 mcg/actuation inhaler Inhale 2 Puffs as instructed every 4 hours as needed. 8 g 5 metFORMIN (GLUCOPHAGE) 500 mg tablet Take 1 tablet by mouth once daily. 90 tablet 1 metaxalone (SKELAXIN) 800 mg tablet Take 0.5-1 tablets by mouth three times daily as needed for pain (or muscle spasms). 90 tablet 1 gabapentin (NEURONTIN) 300 mg capsule Take 1 capsule by mouth twice daily for 180 days. 180 capsule 1 meloxicam (MOBIC) 15 mg tablet TAKE 1 TABLET DAILY WITH FOOD FOR PAIN 90 tablet 1 atorvastatin (LIPITOR) 20 mg tablet Take 1 tablet by mouth once daily. 90 tablet 1 irbesartan (AVAPRO) 150 mg tablet Take 1 tablet by mouth daily at bedtime. 90 tablet 1 blood sugar diagnostic (BLOOD GLUCOSE TEST) test strip Test blood sugar(s) 1 times daily. Dx: Type 2 DM - Controlled E11.9 Insulin: No 100 Strip 11 Lancets lancets Test blood sugar(s) 1 times daily. Dx: Type 2 DM - Controlled E11.9 Insulin: No 100 Each 11 metFORMIN (GLUCOPHAGE) 500 mg tablet Take 1 tablet by mouth once daily. 20 tablet 0 tolterodine ER (DETROL LA) 4 mg 24 hr capsule TAKE 1 CAPSULE DAILY 90 capsule 3 ibuprofen (MOTRIN) 200 mg tablet Take 200 mg by mouth every 6 hours as needed. aspirin, enteric coated (ASPIRIN, ENTERIC COATED) 81 mg EC tablet aspirin Aspirin 81 MG PO DAILY September 23, 2018 Active 09-23-2018 [facility] ([id number]) cholecalciferol (VITAMIN D3) 1,000 unit tab tablet cholecalciferol Cholecalciferol (Vit D3) Active 1000 UNIT DAILY September 23, 2018 7:41pm 09-23-2018 [facility] ([id number]) latanoprost (XALATAN) 0.005 % ophthalmic solution Use 1 Drop in both eyes daily at bedtime. glucosamine/msm/chondroitin A ([id number] ORAL) montelukast (SINGULAIR) 10 mg tablet Take 1 tablet by mouth once daily. mometasone (NASONEX) 50 mcg/actuation nasal spray Use 2 Sprays in the nose once daily. cetirizine (ZYRTEC) 10 mg tablet Take 10 mg by mouth every other day. 0 THERAPEUTIC MULTIVITAMIN TAB Take one (1) tablet daily 0 No current facility-administered medications for this visit. ALLERGIES Allergen Reactions Olmesartan Diarrhea Sulfamethoxazole-Tr* Swelling Tongue swelled. Altace [Ramipril] Swelling Swells up throat. Amlodipine Itching Atenolol Other: See Comments Extremely low pulse Baclofen Intolerance Headache 20 min after taking Cats Swelling irritates eyes,hand swelling Fenofibrate Other: See Comments Sore Muscles Lyrica [Pregabalin] Intolerance tongue swelling Pineapple Anaphylaxis throat swells Ragweed Swelling Remeron [Mirtazapin* Other: See Comments Hyperactive and desire to danielle into things Trazodone Other: See Comments Bad Headache Tricor [Fenofibrate* Intolerance muscle pain [place] Swelling Throat and mouth swelling Erythromycin Intolerance turns bright red all over Serzone [Nefazodone* Intolerance States it makes her grouchy Wellbutrin [Bupropi* Intolerance States medication makes her nervous PHYSICAL EXAMINATION: VIDEO EXAM: (if completed, performed via video enabled technology) GENERAL: alert and appropriate, in no distress, well-hydrated, well nourished, and happy, smiling, interactive ASSESSMENT: Froy Sharma is a 66 year old female with: (N32.81) Overactive bladder (primary encounter diagnosis) (N39.41) Urge incontinence (N39.3) MAURICE (stress urinary incontinence, female) (N39.0) Recurrent UTI PLAN: For OAB/ UUI: She is s/p Botox with 75% improvement in symptoms. Discussed future treatment options. She is interested in changing from Detrol to Myrbetriq and proceeding with [facility] for long-term management. We will confer with Dr. Chavez. For MAURICE: Currently, this is less of an issue than the OAB/UUI. For recurrent UTI: Check urine culture. Discussed management options for recurrent UTI. Prefer to avoid vaginal estrogen due to history of breast cancer. Consider prophylactic antibiotic pending results of urine culture. The following approved medication requests have been transmitted electronically. Requested Prescriptions Signed Prescriptions Disp Refills mirabegron (MYRBETRIQ) 25 mg Tb24 30 tablet 5 Sig: Take 1 tablet by mouth once daily. I spent a total of 40 minutes on the date of the service which included preparing to see the patient, [id number] patient care, completing clinical documentation, counseling and educating the patient/family/caregiver, and ordering medications, tests, or procedures. Eliceo Beaver APRN.CNP documented in this encounter [facility] 03-20-2022 Miscellaneous Notes The only 250 calcium I could find is also combined with vitamin D. This is sent to pharmacy. The following approved medication requests have been transmitted electronically. Requested Prescriptions Signed Prescriptions Disp Refills calcium-cholecalciferol, D3, (OSCAL+D 250) 250 mg-3.125 mcg (125 unit) per tablet 30 tablet 0 Sig: Take 1 tablet by mouth once daily. Authorizing Provider: STEPHANIE YOUNG APRN.CNP Patient calls and states that when she picked up medication vitamin C was ordered. Patient asking if provider can send in order for Calcium? Patient states that she was to start of with 250? Please review and advise, Beata Shipley RN documented in this encounter [facility] 03-14-[address] [facility] 03-14-2022 Miscellaneous Notes Called patient's mobile and home number. No answer. Left message below on VM Would advise going to ortho [facility] for evaluation Patient states she is experiencing back pain going downright leg an heard something pop in her right leg and knee Patient state the pain level is at a 8 call back [phone] documented in this encounter [facility] 03-14-2022 History of Present illness Narrative PULM FUNCTION SMARTBLOCK: Provider: Nya Barba APRN.COOK CANDY Assisting Tech: ELSA Tucker Spirometry w/BD: 1 documented in this encounter [facility] 03-12-[address] [facility] 03-12-2022 History of Present illness Narrative Chief Complaint Patient presents with: F/U 3 Month: Raynaud's- Appt with rheumatology 04/01 & bradycardia HPI Froy Sharma is a 66 year old female who presents here today for Above Complaints.. Today: Raynauds-no real change. Hands red/purple/white. Sees rheum on 04/01 for the 1st time. Feet less painful but feel like ice cubes. Saw ortho yesterday for right hip/knee pain. Xray was normal-likely going to be getting MRI. Seeing PT for dry needling for flare ups every 4-6 weeks. Botox to her bladder recently for overactive bladder. DM-doesn't check blood sugars. No excessive thirst or urination. Denies other concerns or complaints today. Past medical history, appointments, medications, allergies reviewed. 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 Juarez High cholesterol Hypermobility syndrome Hypertension Insomnia Lumbar stenosis Dr. Juarez Malignant hyperthermia Myalgia and myositis, unspecified Other specified glaucoma Dr. Motta Psoriasis Dr. Phelan Right lumbar radiculitis Rotator cuff tear, left Trigeminal neuralgia Previous Surgical History PAST SURGICAL HISTORY Procedure Laterality Date BREAST LUMPECTOMY HX Left 11/2015, 01/2016 CATARACT EXTRACTION HX Bilateral 02/2018, 05/2018 COLONOSCOPY 05/22/2009 [facility] ENDOMETRIAL BIOPSY 05/24/2009 EXTRACTION, ERUPTED TOOTH OR EXPOSED ROOT (ELEVATION AND/OR FORCEPS REMOVAL) 1976 FUSION OF FINGER TENDONS 08/24/2017 4 fingers MASTECTOMY BRA Left 05/2015 MASTECTOMY HX Left 05/28/2015 reconstructed with gel implant MASTOPEXY Right 05/2015 and again Feb 2016 after implant completed NEUROPLASTY &/TRANSPOS MEDIAN NRV CARPAL TUNNE Right 2017 Carpal tunnel decomp NIPPLE/AREOLA RECONSTRUCTION Right 05/2016 PAST SURGICAL HISTORY OF laser surgery right eye to repair blood vessels PAST SURGICAL HISTORY OF several surgeries on feet PAST SURGICAL HISTORY OF 06/2009 Taking Tendon and Making Thumb Ligament (Right Wrist) PAST SURGICAL HISTORY OF 01/2010 Removal of Extra Tendon at Wrist (Right) PAST SURGICAL HISTORY OF Pisform bone right hand PAST SURGICAL HISTORY OF 1985,1987 wrist surgery bilateral PAST SURGICAL HISTORY OF 04/2014 slt on right eye PAST SURGICAL HISTORY OF Right 07/2016 Right trigger finger, [facility] PAST SURGICAL HISTORY OF 2009 D&C, polypectomy for postmenopausal bleeding PAST SURGICAL HISTORY OF 10/10/2020 thumb surgery on right hand at [facility] (fused the thumb) REPAIR FINGER TENDON 05/2012 right thumb TONSILLECTOMY PRIMARY/SECONDARY <AGE 12 Tonsillectomy Family History FAMILY HISTORY Problem Relation Age of Onset Hypertension Mother Anesthesia Mother Stroke Mother Parkinson s Disease Mother Dementia Hypertension Father Blood Disease Father Mylofibrosis Diabetes Sister Heart Sister Myocardial Infarction/Triple Bypass Hypertension Sister other (DCIS) Sister grade 2 Diabetes Sister Cancer Sister melanoma Hypertension Sister Diabetes Maternal Grandmother Diabetes Maternal Grandfather Diabetes Paternal Grandmother Diabetes Paternal Grandfather Diabetes Maternal Aunt other (DCIS) Other Patient Allergies ALLERGIES Allergen Reactions Olmesartan Diarrhea Sulfamethoxazole-Tr* Swelling Tongue swelled. Altace [Ramipril] Swelling Swells up throat. Amlodipine Itching Atenolol Other: See Comments Extremely low pulse Baclofen Intolerance Headache 20 min after taking Cats Swelling irritates eyes,hand swelling Fenofibrate Other: See Comments Sore Muscles Lyrica [Pregabalin] Intolerance tongue swelling Pineapple Anaphylaxis throat swells Ragweed Swelling Remeron [Mirtazapin* Other: See Comments Hyperactive and desire to danielle into things Trazodone Other: See Comments Bad Headache Tricor [Fenofibrate* Intolerance muscle pain [place] Swelling Throat and mouth swelling Erythromycin Intolerance turns bright red all over Serzone [Nefazodone* Intolerance States it makes her grouchy Wellbutrin [Bupropi* Intolerance States medication makes her nervous Current Medications Current Outpatient Medications on File Prior to Visit Medication Sig hydrocortisone 0.5 % ointment Apply to affected area twice daily. albuterol HFA (VENTOLIN HFA) 90 mcg/actuation inhaler Inhale 2 Puffs as instructed every 4 hours as needed. metFORMIN (GLUCOPHAGE) 500 mg tablet Take 1 tablet by mouth once daily. metaxalone (SKELAXIN) 800 mg tablet Take 0.5-1 tablets by mouth three times daily as needed for pain (or muscle spasms). gabapentin (NEURONTIN) 300 mg capsule Take 1 capsule by mouth twice daily for 180 days. meloxicam (MOBIC) 15 mg tablet TAKE 1 TABLET DAILY WITH FOOD FOR PAIN atorvastatin (LIPITOR) 20 mg tablet Take 1 tablet by mouth once daily. irbesartan (AVAPRO) 150 mg tablet Take 1 tablet by mouth daily at bedtime. blood sugar diagnostic (BLOOD GLUCOSE TEST) test strip Test blood sugar(s) 1 times daily. Dx: Type 2 DM - Controlled E11.9 Insulin: No Lancets lancets Test blood sugar(s) 1 times daily. Dx: Type 2 DM - Controlled E11.9 Insulin: No metFORMIN (GLUCOPHAGE) 500 mg tablet Take 1 tablet by mouth once daily. tolterodine ER (DETROL LA) 4 mg 24 hr capsule TAKE 1 CAPSULE DAILY ibuprofen (MOTRIN) 200 mg tablet Take 200 mg by mouth every 6 hours as needed. aspirin, enteric coated (ASPIRIN, ENTERIC COATED) 81 mg EC tablet aspirin Aspirin 81 MG PO DAILY September 23, 2018 Active 09-23-2018 [facility] ([id number]) cholecalciferol (VITAMIN D3) 1,000 unit tab tablet cholecalciferol Cholecalciferol (Vit D3) Active 1000 UNIT DAILY September 23, 2018 7:41pm 09-23-2018 [facility] ([id number]) latanoprost (XALATAN) 0.005 % ophthalmic solution Use 1 Drop in both eyes daily at bedtime. glucosamine/msm/chondroitin A ([id number]-[id number]-JOZ ORAL) montelukast (SINGULAIR) 10 mg tablet Take 1 tablet by mouth once daily. mometasone (NASONEX) 50 mcg/actuation nasal spray Use 2 Sprays in the nose once daily. cetirizine (ZYRTEC) 10 mg tablet Take 10 mg by mouth every other day. THERAPEUTIC MULTIVITAMIN TAB Take one (1) tablet daily No current facility-administered medications on file prior to visit. Social History Social History Tobacco Use Smoking status: Never Smokeless tobacco: Never Vaping Use Vaping Use: Never used Substance Use Topics Alcohol use: Not Currently Drug use: Never Review of Symptoms REVIEW OF SYSTEMS See HPI, otherwise negative EXAM: BP 122/78 (BP Site: Left Arm, BP Position: Sitting, BP Cuff Size: Regular Adult) Pulse 77 Resp 16 Wt 59.8 kg (131 lb 12.8 oz) LMP 09/05/2005 SpO2 99% BMI 23.72 kg/m General Appearance: Well appearing, alert, in no acute distress, well-hydrated, well nourished.. Lungs: Lungs clear to auscultation. No wheezing, rhonchi, rales.. Heart: RRR without murmur, gallop, or rubs. No ectopy. Health Maintenance List SPIROMETRY Never done COLORECTAL CANCER SCREENING due on 12/11/2020 DEPRESSION ASSESSMENT due on 02/09/2022 URINE ALBUMIN:CREATININE RATIO due on 07/03/2022 DIABETIC FOOT EXAM due on 07/03/2022 HBA1C due on 07/14/2022 MAMMOGRAM due on 11/25/2022 LDL CHOLESTEROL due on 01/13/2023 DILATED RETINAL EXAM due on 01/21/2023 ANNUAL PCP TEAM CHRONIC DISEASE VISIT due on 03/12/2023 BP CONTROLLED (<130/80) due on 03/12/2023 DTAP,TDAP,TD(10 - Td or Tdap) due on 02/19/2028 BONE DENSITY Completed INFLUENZA Completed HEPATITIS C SCREENING Completed SHINGRIX VACCINE Completed COVID-19 VACCINE Completed PNEUMOCOCCAL: 65+ Completed ADVANCE DIRECTIVE DISCUSSION Discontinued Data reviewed Previous records, office notes ASSESSMENT/PLAN: 1. Type 2 diabetes mellitus without complication, without long-term current use of insulin (HCC) - ICD9: 250.00, ICD10: E11.9 (primary diagnosis) Controlled. - Continue current medications 2. Mild intermittent asthma in adult without complication - ICD9: 493.90, ICD10: J45.20 Mild intermittent Asthma stable - Continue current meds - Avoidance of triggers recommended - SPIROMETRY - BASELINE AND POST DILATOR 3. SI (sacroiliac) joint dysfunction - ICD9: 724.6, ICD10: M53.3 Following with orthopedics. 4. Raynaud's disease without gangrene - ICD9: 443.0, ICD10: I73.00 Seeing rheumatology later this month. 5. OAB (overactive bladder) - ICD9: 596.51, ICD10: N32.81 Following with UROGYN 6. Screening for colon cancer - ICD9: V76.51, ICD10: Z12.11 Complete Cologuard that she has at home. Nya Barba APRN.COOK CANDY documented in this encounter [facility] 03-12-2022 Instructions Marialuisa Gary - 03/12/2022 9:02 AM EST Schedule your thyroid ultrasound for April (order already in) Complete your cologuard screening that you have at home Schedule your spirometry (lung function testing) Follow up with gynecology/urologist that did your botox injection--- should you continue the detrol? documented in this encounter [facility] 02-24-2022 History of Present illness Narrative See progress note from today Froy Welsh Zachary presents today for a intradetrusor Botox injections. Indication: Urge incontinence. UNIVERSAL PROTOCOL / SAFETY CHECKLIST Procedure to be Performed: cystoscopy with botox injections Sign In: A Moment of CARE was completed. Personnel directly involved with the procedure wore the appropriate PPE (Personal Protective Equipment). Patient/Surrogate Stated/Verified: PATIENT VERIFIED(optional for EMERGENT procedures): Patient name, Date of , Relevant allergies, and The intended procedure Time Out Communication: Intended patient and procedure match the source documents. Consent documented and matches the intended procedure. Sign Out: SIGN OUT (optional for EMERGENT procedures): No instruments, equipment or retained foreign bodies applicable. Jeremy Chavez MD PROCEDURE: Indication: Urinary Urgency/Urinary Frequency/Urinary urge incontinence. The patient understands the RBA of intradetrusor Botox injection, including but not limited to UTI, hematuria, urinary retention (dose dependent), treatment failure and transient weakness (rare). Brief description of procedure: After obtaining written informed consent, a time out was performed. The patient was placed in dorsal lithotomy position, then prepped and draped in the usual sterile fashion. 2% urethral lidocaine jelly was introduced into the urethra and allowed to take analgesic effect. Anesthesia: Intraurethral Lidocaine jelly 10 mL. Video-assisted cystourethroscopy was performed using a 21 Sinhala 30 degree rigid cystoscope with saline infusion. The cystoscope was advanced in retrograde fashion into the bladder. Next, the bladder was evaluated. Bilateral ureteral orifices were identified in normal orthotopic position. The bladder mucosa was evaluated in its entirety. There no bladder masses, stones, lesions or foreign bodies. Next 100 units of Botox were reconstituted in 10 mL of preservative-free injectable saline and injected in 1 mL aliquots into the detrusor in a grid-like pattern. In all 10 injections were given. A 1 mL normal saline flush was given to ensure all medication was administered. Finally, the cystoscope was removed from the bladder and the urethra evaluated again. The patient tolerated the procedure well and was given an immediate dose of periprocedural antibiotics. There were no complications. Findings: Normal bladder mucosa. No evidence of inflammation, stones, neoplasia, bladder diverticulum, trabeculations, or other bladder abnormalities. The bladder trigone and ureteral orifices were seen and no abnormalities noted. Normal urethra without inflammation, diverticulum, or other abnormality. Complications: none Procedure Summary: Patient tolerated procedure well. Medications: Macrobid was given for prophylaxis. IMPRESSION: Normal bladder and urethra s/p 100units Botox PLAN: Follow-up in 4 weeks with urogyn DIRECTOR OF PURCHASING to monitor symptoms If significant improvement, then will consider Botox every 6 months to 1 year Jeremy Chavez MD ATTESTATION: By signing my name below, Nicole Aranda, attest that this documentation has been prepared under the direction and in the presence of Dr. Chavez. Electronically signed, Kristie Padgett February 24, 2022 12:11 PM Provider Attestation: Jeremy Aranda MD, personally performed the services described in this documentation. All medical record entries made by the scribe were at my direction and in my presence. I have reviewed the chart and discharge instructions (if applicable) and agree that the record reflects my personal performance and is accurate and complete. Jeremy Chavez MD documented in this encounter [facility] 02-21-2022 Miscellaneous Notes Botox scheduled 02/24 Approval Date Range: 09/04/2021 to 09/04/2022 Approval #: [id number] Dose & Frequency: 100 UNITS EVERY 4 MONTHS FOR 1 YEAR Macrobid sent 12/12 Call to pt. Identified by name/. Pt confirms has Macrobid, not on blood thinner, and will come prepared to give a urine sample. OK to continue Detrol medication for now; can discuss stopping 7-10 days after injection to see if still needed. Era Berry RN documented in this encounter [facility] 02-19-2022 Miscellaneous Notes Noted, thank you. Nya Barba APRN.MARCOS Patient calls and provider message reviewed. Patient reports she goes to the orthopaedic doctor on March 11. Patient reports symptoms are still the same. Pain continues to right knee and leg but patient quit taking Advil d/t upcoming appointment for Botox for bladder. Patient reports that she is able to walk on the leg but it hurts and she does limp. No swelling, fever, numbness, weakness, or back pain. Patient declining ED evaluation. Areli Reese RN Message left to return call. Noted Please call patient for an update to what is going on. Did she see Orthopedics yet? Hitesh Maria DO Pt wrote into the office stating that she called her Orthopaedic with [facility]. FYI. Deysi Dela Cruz Ma Protocol recommends call 911. Patient agreeable. Reason for Disposition Looks like a broken bone or dislocated joint (e.g., crooked or deformed) Answer Assessment - Initial Assessment Questions 1. ONSET: Right hip popped about a week ago, right knee popped at same time. Right hip popped to the outside. Right knee popped to the inside. So they are going in opposite directions. Knee looks distorted, a couple of bumps- and she doesn't know what they are. Pain is worse the last 3 days. Tylenol, advil, muscle relaxer doesn't help. 2. LOCATION: Right hip/knee 3. PAIN: 9/10. Creates pain when walking on it. Creates a limp when walking. 4. WORK OR EXERCISE: Has been exercising in a pool recently. 5. CAUSE: Doesn't know. Hypermobility. 6. OTHER SYMPTOMS: No swelling. No fever. No numbness or weakness. No back pain, last night SI was hurting. 7. : No. Protocols used: Leg Lexs-[id number] documented in this encounter [facility] 02-17-2022 Miscellaneous Notes Noted in Triage encounter that pt wrote into the office stating she call her Orthopaedic at [facility] vs ED. Closing this encounter. Deysi Dela Cruz Ma documented in this encounter [facility] 01-22-2022 Miscellaneous Notes Addended by: PETRA LANGLEY DPM on: 01/22/2022 10:04 AM Modules accepted: Orders documented in this encounter [facility] 01-22-2022 Instructions Petra Langley - 01/22/2022 9:29 AM EST You have pain in right foot Check xrays for stress fracture Will place you in a boot. Do not drive in the boot. Can remove to sleep If you develop any pain in calf, present to ED. documented in this encounter [facility] 01-22-2022 History of Present illness Narrative Images from the original note were not included. Chief Complaint: This 66 year old female who presents with chief complaint:right foot pain HPI Patient presents to clinic with complaint of pain to her right foot Patinet states the pain has been present for 1-1.5 weeks. She states the pain is primarily located to right midfoot but it does radiate to her ankle and her toes. Patient denies any injury. Patient does report increased activity with [employer] shopping and she has been doing increased core strength [facility] but is doing pool exercise. Patient is taking extra strength tylenol for the pain. 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 Juarez High cholesterol Hypermobility syndrome Hypertension Insomnia Lumbar stenosis Dr. Juarez Malignant hyperthermia Myalgia and myositis, unspecified Other specified glaucoma Dr. Motta Psoriasis Dr. Phelan Right lumbar radiculitis Rotator cuff tear, left Trigeminal neuralgia Current Outpatient Medications Medication Sig metFORMIN (GLUCOPHAGE) 500 mg tablet Take 1 tablet by mouth once daily. metaxalone (SKELAXIN) 800 mg tablet Take 0.5-1 tablets by mouth three times daily as needed for pain (or muscle spasms). gabapentin (NEURONTIN) 300 mg capsule Take 1 capsule by mouth twice daily for 180 days. meloxicam (MOBIC) 15 mg tablet TAKE 1 TABLET DAILY WITH FOOD FOR PAIN atorvastatin (LIPITOR) 20 mg tablet Take 1 tablet by mouth once daily. irbesartan (AVAPRO) 150 mg tablet Take 1 tablet by mouth daily at bedtime. tolterodine ER (DETROL LA) 4 mg 24 hr capsule TAKE 1 CAPSULE DAILY aspirin, enteric coated (ASPIRIN, ENTERIC COATED) 81 mg EC tablet aspirin Aspirin 81 MG PO DAILY September 23, 2018 Active 09-23-2018 [facility] ([id number]) cholecalciferol (VITAMIN D3) 1,000 unit tab tablet cholecalciferol Cholecalciferol (Vit D3) Active 1000 UNIT DAILY September 23, 2018 7:41pm 09-23-2018 [facility] ([id number]) latanoprost (XALATAN) 0.005 % ophthalmic solution Use 1 Drop in both eyes daily at bedtime. glucosamine/msm/chondroitin A ([id number]-[id number]-SXT ORAL) montelukast (SINGULAIR) 10 mg tablet Take 1 tablet by mouth once daily. cetirizine (ZYRTEC) 10 mg tablet Take 10 mg by mouth every other day. THERAPEUTIC MULTIVITAMIN TAB Take one (1) tablet daily albuterol HFA (VENTOLIN HFA) 90 mcg/actuation inhaler Inhale 2 Puffs as instructed every 4 hours as needed. blood sugar diagnostic (BLOOD GLUCOSE TEST) test strip Test blood sugar(s) 1 times daily. Dx: Type 2 DM - Controlled E11.9 Insulin: No Lancets lancets Test blood sugar(s) 1 times daily. Dx: Type 2 DM - Controlled E11.9 Insulin: No metFORMIN (GLUCOPHAGE) 500 mg tablet Take 1 tablet by mouth once daily. ibuprofen (MOTRIN) 200 mg tablet Take 200 mg by mouth every 6 hours as needed. mometasone (NASONEX) 50 mcg/actuation nasal spray Use 2 Sprays in the nose once daily. No current facility-administered medications for this visit. ALLERGIES Allergen Reactions Olmesartan Diarrhea Sulfamethoxazole-Tr* Swelling Tongue swelled. Altace [Ramipril] Swelling Swells up throat. Amlodipine Itching Atenolol Other: See Comments Extremely low pulse Baclofen Intolerance Headache 20 min after taking Cats Swelling irritates eyes,hand swelling Fenofibrate Other: See Comments Sore Muscles Lyrica [Pregabalin] Intolerance tongue swelling Pineapple Anaphylaxis throat swells Ragweed Swelling Remeron [Mirtazapin* Other: See Comments Hyperactive and desire to danielle into things Trazodone Other: See Comments Bad Headache Tricor [Fenofibrate* Intolerance muscle pain [place] Swelling Throat and mouth swelling Erythromycin Intolerance turns bright red all over Serzone [Nefazodone* Intolerance States it makes her grouchy Wellbutrin [Bupropi* Intolerance States medication makes her nervous PAST SURGICAL HISTORY Procedure Laterality Date BREAST LUMPECTOMY HX Left 11/2015, 01/2016 CATARACT EXTRACTION HX Bilateral 02/2018, 05/2018 COLONOSCOPY 05/22/2009 [facility] ENDOMETRIAL BIOPSY 05/24/2009 EXTRACTION, ERUPTED TOOTH OR EXPOSED ROOT (ELEVATION AND/OR FORCEPS REMOVAL) 1976 FUSION OF FINGER TENDONS 08/24/2017 4 fingers MASTECTOMY BRA Left 05/2015 MASTECTOMY HX Left 05/28/2015 reconstructed with gel implant MASTOPEXY Right 05/2015 and again Feb 2016 after implant completed NEUROPLASTY &/TRANSPOS MEDIAN NRV CARPAL TUNNE Right 2017 Carpal tunnel decomp NIPPLE/AREOLA RECONSTRUCTION Right 05/2016 PAST SURGICAL HISTORY OF laser surgery right eye to repair blood vessels PAST SURGICAL HISTORY OF several surgeries on feet PAST SURGICAL HISTORY OF 06/2009 Taking Tendon and Making Thumb Ligament (Right Wrist) PAST SURGICAL HISTORY OF 01/2010 Removal of Extra Tendon at Wrist (Right) PAST SURGICAL HISTORY OF Pisform bone right hand PAST SURGICAL HISTORY OF 1985,1987 wrist surgery bilateral PAST SURGICAL HISTORY OF 04/2014 slt on right eye PAST SURGICAL HISTORY OF Right 07/2016 Right trigger finger, [facility] PAST SURGICAL HISTORY OF 2009 D&C, polypectomy for postmenopausal bleeding PAST SURGICAL HISTORY OF 10/10/2020 thumb surgery on right hand at [facility] (fused the thumb) REPAIR FINGER TENDON 05/2012 right thumb TONSILLECTOMY PRIMARY/SECONDARY <AGE 12 Tonsillectomy FAMILY HISTORY Problem Relation Age of Onset Hypertension Mother Anesthesia Mother Stroke Mother Parkinson s Disease Mother Dementia Hypertension Father Blood Disease Father Mylofibrosis Diabetes Sister Heart Sister Myocardial Infarction/Triple Bypass Hypertension Sister other (DCIS) Sister grade 2 Diabetes Sister Cancer Sister melanoma Hypertension Sister Diabetes Maternal Grandmother Diabetes Maternal Grandfather Diabetes Paternal Grandmother Diabetes Paternal Grandfather Diabetes Maternal Aunt other (DCIS) Other Social History Tobacco Use Smoking status: Never Smokeless tobacco: Never Vaping Use Vaping Use: Never used Substance Use Topics Alcohol use: Not Currently Drug use: Never REVIEW OF SYSTEMS GENERAL: Negative for Malaise, significant weight loss, fever RESPIRATORY: Negative for cough, wheezing and shortness of breath CARDIOVASCULAR: Negative for chest pain, leg swelling and palpitations GI: Negative for abdominal discomfort, blood in stools or black stools and change in bowel habits : Negative for dysuria, frequency and incontinence MUSCULOSKELETAL: Negative for joint pain or swelling, back pain, and muscle pain. SKIN: Negative for lesions, rash, and itching. HEMATOLOGY/LYMPHOLOGY Negative for prolonged bleeding, bruising easily, and swollen nodes. ENDOCRINE: Negative for cold or heat intolerance, polyuria, polydipsia and goiter. NEURO: negative Physical Exam: Constitutional: Pt is a well developed 66 year old female who is alert, oriented and cooperative Eyes: Following during examination. No redness or drainage. Respiratory: RR normal and nonlabored. Even breathing. No evidence of distress or shortness of breath. Psychology: Patient is engaged during conversation. Normal affect and mood. Does not appear depressed or anxious during encounter. Vascular: Dorsalis pedis and posterior tibial pulses palpable as b/l Capillary Fill time < 5 seconds to digits 1-5 b/l Skin temperature warm to warm proximal to distal b/l Hair growth present to digits Neurological: intact light touch/epicritic sensation b/l intact protective sensation no significant neurological deficits Dermatological: Nails 1-5 b/l appear normal. Webspaces clean and dry 1-4 b/l. Skin appears well hydrated and supple. good color, texture, turgor. No open lesions present. Callus present to left 4th metatarsal. Musculoskeletal/Orthopaedic: Patient has pain to palpation of right 4th metatarsal shaft Foot type is pronated structurally AJ ROM is full with knee extended and flexed 1st MPJ is decreased when loaded and no pain or crepitus are noted with ROM. MTJ, STJ are full and free of pain and crepitus. 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 Cannot exclude possible stress fracture of right 4th metatarsal. Will get xrays. Will place patient in boot and call with results. Discussed risk of dvt while in boot. If she develops any calf pain present to ed. Vitamin d in spring was normal. Callus reduced with dremmel Ordered custom orthotics Will call with results Petra Langley DPM Podiatry [address] [facility] [address] Dept: [phone] Dept AMB ROOMING INTAKE FLOWSHEET DATA Risk Screening Do you have concerns about personal safety or safety in the home?: No Pain Pain Level: 7 Pain Location: Foot-Right Description: Throbbing Duration Amount of Time: 1 Duration Units: Weeks Frequency: Continuous Intervention/Comfort measure: Other: See comment (none) Right foot pain x 1 week. States she has been doing stretches in the pool at [employer]. documented in this encounter [facility] 01-09-2022 Miscellaneous Notes Pt informed, verbalized understanding Magda Boland Ma Please let patient know that bone scan results show osteopenia. They need to be taking a daily calcium and Vitamin D3 supplement. *1200 mg - 1500 mg calcium per day *800 - 1000 International Units of vitamin D3 per day Nya Barba APRN.COOK CANDY documented in this encounter [facility] 12-23-2021 Miscellaneous Notes Patient has been identified by name and date of : Yes Patient phones for refill(s): Requested Prescriptions Pending Prescriptions Disp Refills albuterol HFA (VENTOLIN HFA) 90 mcg/actuation inhaler 8 g 5 Sig: Inhale 2 Puffs as instructed every 4 hours as needed. Date of last office visit in primary care: 12/12/21 next apt 03/05/22 Last 2 Encounter Wt Readings: Date: Wt: 12/12/2021 58.4 kg (128 lb 12.8 oz) 12/03/2021 58.1 kg (128 lb) Previous labs/tests for medication: Not applicable Thank you. Ce Gaspar LPN documented in this encounter [facility] 12-23-2021 Miscellaneous Notes Please inform patient that her DEXA shows IMPRESSION: Osteopenia in the left femoral neck 10-year Fracture Risk (FRAX): Major osteoporotic fracture risk 10% Hip fracture risk 1.5% documented in this encounter [facility] 12-23-2021 History of Present illness Narrative Radiology Service Progress Note PATIENT NAME: Froy Sharma DATE OF SERVICE: December 23, 2021 TIME: 11:35 AM PATIENT IDENTITY VERIFICATION COMPLETED USING TWO (2) IDENTIFIERS: Name and Date of confirmed by patient verbally. FALL SCREENING: Has the patient had 2 falls in the last year or 1 fall with injury or currently using an Ambulatory Assistive Device (Walker, Cane, Wheelchair, Crutches, etc.)? No PATIENT GENDER DATA: Female. status: : No status: NO. PATIENT RELEVANT IMPLANT DATA REVIEWED: Not Applicable RADIOLOGY DEPARTMENT: Bone Density PERIPHERAL IV DATA: Not applicable SIGNED BY: RT Ai(R) December 23, 2021 11:35 AM documented in this encounter [facility] 12-19-2021 Miscellaneous Notes Last office visit: 12/12/21 F/u scheduled: 03/05/22 Anne Marie Duncan Ma documented in this encounter [facility] 12-16-2021 Miscellaneous Notes The following approved medication requests have been transmitted electronically. Requested Prescriptions Signed Prescriptions Disp Refills metaxalone (SKELAXIN) 800 mg tablet 90 tablet 1 Sig: Take 0.5-1 tablets by mouth three times daily as needed for pain (or muscle spasms). Authorizing Provider: JAMIL NIXON DO JOSE: 02/07/2021 NOV: Visit date not found Orders Pended Lorraine Marquez MA documented in this encounter [facility] 12-12-2021 History of Present illness Narrative Chief Complaint Patient presents with: Discussion: About raynauds states Dr. Barahona dx this. HPI Froy Sharma is a 66 year old female who presents here today for Above Complaints.. Froy is an established patient of Dr. Crow DO and myself. Concerns today... Patient reports her Raynaud's flares up during the winter months and has begun to flare up now. She reports episodes of her middle finger turning white and almost numb at the end. Other 2-3 fingers will turn black and blue down to palm with minimal temperature change. Pt reports exercising in pool and getting out of pool and in locker room will greatly worsen symptoms. Reports 2-3 episodes since last visit with Dr. Maria 1.5 weeks ago. She reports she tried two separate medications earlier this year for this, and due to the side effects, they were not successful-they were amlodipine and nifedipine. In 03/14/21 note, Nya Barba recommended possible verapamil. Has never been to rheumatology for this. No other concerns or complaints. Past medical history, appointments, medications, allergies reviewed. 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 Juarez High cholesterol Hypermobility syndrome Hypertension Insomnia Lumbar stenosis Dr. Juarez Malignant hyperthermia Myalgia and myositis, unspecified Other specified glaucoma Dr. Motta Psoriasis Dr. Phelan Right lumbar radiculitis Rotator cuff tear, left Trigeminal neuralgia Previous Surgical History PAST SURGICAL HISTORY Procedure Laterality Date BREAST LUMPECTOMY HX Left 11/2015, 01/2016 CATARACT EXTRACTION HX Bilateral 02/2018, 05/2018 COLONOSCOPY 05/22/2009 [facility] ENDOMETRIAL BIOPSY 05/24/2009 EXTRACTION, ERUPTED TOOTH OR EXPOSED ROOT (ELEVATION AND/OR FORCEPS REMOVAL) 1976 FUSION OF FINGER TENDONS 08/24/2017 4 fingers MASTECTOMY BRA Left 05/2015 MASTECTOMY HX Left 05/28/2015 reconstructed with gel implant MASTOPEXY Right 05/2015 and again Feb 2016 after implant completed NEUROPLASTY &/TRANSPOS MEDIAN NRV CARPAL TUNNE Right 2017 Carpal tunnel decomp NIPPLE/AREOLA RECONSTRUCTION Right 05/2016 PAST SURGICAL HISTORY OF laser surgery right eye to repair blood vessels PAST SURGICAL HISTORY OF several surgeries on feet PAST SURGICAL HISTORY OF 06/2009 Taking Tendon and Making Thumb Ligament (Right Wrist) PAST SURGICAL HISTORY OF 01/2010 Removal of Extra Tendon at Wrist (Right) PAST SURGICAL HISTORY OF Pisform bone right hand PAST SURGICAL HISTORY OF 1985,1987 wrist surgery bilateral PAST SURGICAL HISTORY OF 04/2014 slt on right eye PAST SURGICAL HISTORY OF Right 07/2016 Right trigger finger, [facility] PAST SURGICAL HISTORY OF 2009 D&C, polypectomy for postmenopausal bleeding PAST SURGICAL HISTORY OF 10/10/2020 thumb surgery on right hand at [facility] (fused the thumb) REPAIR FINGER TENDON 05/2012 right thumb TONSILLECTOMY PRIMARY/SECONDARY <AGE 12 Tonsillectomy Family History FAMILY HISTORY Problem Relation Age of Onset Hypertension Mother Anesthesia Mother Stroke Mother Parkinson s Disease Mother Dementia Hypertension Father Blood Disease Father Mylofibrosis Diabetes Sister Heart Sister Myocardial Infarction/Triple Bypass Hypertension Sister other (DCIS) Sister grade 2 Diabetes Sister Cancer Sister melanoma Hypertension Sister Diabetes Maternal Grandmother Diabetes Maternal Grandfather Diabetes Paternal Grandmother Diabetes Paternal Grandfather Diabetes Maternal Aunt other (DCIS) Other Patient Allergies ALLERGIES Allergen Reactions Olmesartan Diarrhea Sulfamethoxazole-Tr* Swelling Tongue swelled. Altace [Ramipril] Swelling Swells up throat. Amlodipine Itching Atenolol Other: See Comments Extremely low pulse Baclofen Intolerance Headache 20 min after taking Cats Swelling irritates eyes,hand swelling Fenofibrate Other: See Comments Sore Muscles Lyrica [Pregabalin] Intolerance tongue swelling Pineapple Anaphylaxis throat swells Ragweed Swelling Remeron [Mirtazapin* Other: See Comments Hyperactive and desire to danielle into things Trazodone Other: See Comments Bad Headache Tricor [Fenofibrate* Intolerance muscle pain [place] Swelling Throat and mouth swelling Erythromycin Intolerance turns bright red all over Serzone [Nefazodone* Intolerance States it makes her grouchy Wellbutrin [Bupropi* Intolerance States medication makes her nervous Current Medications Current Outpatient Medications on File Prior to Visit Medication Sig gabapentin (NEURONTIN) 300 mg capsule Take 1 capsule by mouth twice daily for 180 days. albuterol HFA (VENTOLIN HFA) 90 mcg/actuation inhaler Inhale 2 Puffs as instructed every 4 hours as needed. meloxicam (MOBIC) 15 mg tablet TAKE 1 TABLET DAILY WITH FOOD FOR PAIN atorvastatin (LIPITOR) 20 mg tablet Take 1 tablet by mouth once daily. irbesartan (AVAPRO) 150 mg tablet Take 1 tablet by mouth daily at bedtime. blood sugar diagnostic (BLOOD GLUCOSE TEST) test strip Test blood sugar(s) 1 times daily. Dx: Type 2 DM - Controlled E11.9 Insulin: No Lancets lancets Test blood sugar(s) 1 times daily. Dx: Type 2 DM - Controlled E11.9 Insulin: No metFORMIN (GLUCOPHAGE) 500 mg tablet Take 1 tablet by mouth once daily. metFORMIN (GLUCOPHAGE) 500 mg tablet Take 1 tablet by mouth once daily. metaxalone (SKELAXIN) 800 mg tablet Take 0.5-1 tablets by mouth three times daily as needed for pain (or muscle spasms). tolterodine ER (DETROL LA) 4 mg 24 hr capsule TAKE 1 CAPSULE DAILY ibuprofen (MOTRIN) 200 mg tablet Take 200 mg by mouth every 6 hours as needed. aspirin, enteric coated (ASPIRIN, ENTERIC COATED) 81 mg EC tablet aspirin Aspirin 81 MG PO DAILY September 23, 2018 Active 09-23-2018 [facility] ([id number]) cholecalciferol (VITAMIN D3) 1,000 unit tab tablet cholecalciferol Cholecalciferol (Vit D3) Active 1000 UNIT DAILY September 23, 2018 7:41pm 09-23-2018 [facility] ([id number]) latanoprost (XALATAN) 0.005 % ophthalmic solution Use 1 Drop in both eyes daily at bedtime. glucosamine/msm/chondroitin A (IPTTUOLNHMT-HEFHCF-DCB ORAL) montelukast (SINGULAIR) 10 mg tablet Take 1 tablet by mouth once daily. mometasone (NASONEX) 50 mcg/actuation nasal spray Use 2 Sprays in the nose once daily. cetirizine (ZYRTEC) 10 mg tablet Take 10 mg by mouth every other day. THERAPEUTIC MULTIVITAMIN TAB Take one (1) tablet daily No current facility-administered medications on file prior to visit. Social History Social History Tobacco Use Smoking status: Never Smokeless tobacco: Never Vaping Use Vaping Use: Never used Substance Use Topics Alcohol use: Not Currently Drug use: Never REVIEW OF SYSTEMS: as above Reviewed relevant PMHx, PSHx, Social Hx, current medications and allergies. Review of Symptoms REVIEW OF SYSTEMS See HPI. All other systems are negative. EXAM: BP 120/64 (BP Site: Left Arm, BP Position: Sitting, BP Cuff Size: Regular Adult) Pulse 62 Resp 16 Wt 58.4 kg (128 lb 12.8 oz) LMP 09/05/2005 BMI 22.82 kg/m General Appearance: Well appearing, alert, in no acute distress, well-hydrated, well nourished.. Skin: Skin color, texture, turgor normal, no suspicious rashes or lesions. Head: Normocephalic, no masses, lesions, tenderness or abnormalities. Lungs: Lungs clear to auscultation. No wheezing, rhonchi, rales.. Heart: RRR without murmur, gallop, or rubs. No ectopy. Extremities: No deformities, edema, skin discoloration, clubbing or cyanosis. Good capillary refill. . Musculoskeletal: No joint swelling, deformity, or tenderness. Peripheral Pulses: Normal. Neurologic: Gait normal. Reflexes normal and symmetric. Sensation grossly intact.. Health Maintenance List SPIROMETRY Never done COLORECTAL CANCER SCREENING due on 12/11/2020 DILATED RETINAL EXAM due on 01/24/2022 HBA1C due on 02/01/2022 LDL CHOLESTEROL due on 05/06/2022 URINE ALBUMIN:CREATININE RATIO due on 07/03/2022 DIABETIC FOOT EXAM due on 07/03/2022 MAMMOGRAM due on 11/25/2022 ANNUAL PCP TEAM CHRONIC DISEASE VISIT due on 12/03/2022 BP CONTROLLED (<130/80) due on 12/03/2022 DTAP,TDAP,TD(10 - Td or Tdap) due on 02/19/2028 BONE DENSITY Completed INFLUENZA Completed DEPRESSION ASSESSMENT Completed HEPATITIS C SCREENING Completed SHINGRIX VACCINE Completed COVID-19 VACCINE Completed PNEUMOCOCCAL: 65+ Completed ADVANCE DIRECTIVE DISCUSSION Discontinued ASSESSMENT/PLAN: 1. Raynaud's disease without gangrene - ICD9: 443.0, ICD10: I73.00 (primary diagnosis) Discussed options of verapamil versus propranolol as next options. Verapamil being in the same drug class as other 2 failed treatments. Propranolol being a BB -- although hx of atenolol side effect of causing bradycardia. Pt reports this was over 30 years ago and pt wanting to retry BB. Given pulse ox machine to check HR daily. If below 50 bpm, please reach out to us. RTO in 1-2 weeks to reassess HR and improvement. If no improvement or bradycardia results with propranolol, discussed rheumatology consult. - PROPRANOLOL 20 MG TABLET 2. Bradycardia - ICD9: 427.89, ICD10: R00.1 History of bradycardia. See above. - OXIMETER NON-INVASIVE RTO in 1-2 weeks, sooner if needed. Prescription instructions reviewed with patient as applicable. Potential red flag symptoms discussed with the patient. Reviewed appropriate action plan to take if red flag symptoms occur. Patient agreeable to treatment plan. Stephanie Ladd APRN.MARCOS [address] [place] [address] documented in this encounter [facility] 12-12-2021 Miscellaneous Notes Patient returned call and given provider's message below. Appt made with provider. Leo Martin RN Left message on patient's answering machine to call PCP office and ask for a nurse to receive provider's message. Amie Martin RN Due to not assessed for this since March. Pt needs an appointment to discuss. Thank you, Stephanie Ladd APRN.COOK CANDY Patient reports her Raynaud's flares up during the winter months and has begun to flare up now. She reports her middle finger is white and almost numb at the end. She reports she tried two separate medications earlier this year for this, and due to the side effects, they were not successful-they were amlodipine and nifedipine. In 03/14/21 note, Nya Barba recommended that patient could try verapamil if she wanted, and patient did not try it at that time. Patient asking if she can try verapamil for her Raynaud's? Requesting [facility] pharmacy in [place]. Please call patient with update. Thank you. documented in this encounter [facility] 12-04-2021 Miscellaneous Notes Froy Welsh Zachary is scheduled for an injection on 01/24/[address] Nixon located on the 2nd floor of the [facility]. The day before your procedure, our staff will contact you with the scheduled time. * Please Remember * X-rays, MRI s or CT scans of the area being injected. This only applies to imaging done at an outside facility. You will be asked to reschedule if the films are not present. Insurance card, team truck driver s license, current medication / allergy list. Tray Checker that remains present during your entire procedure - it could take up to 2-3 hours. No procedure will be performed without a team truck driver. Leave all valuables and jewelry at home. Eyeglass case with you, if you wear glasses. Do not wear Contact lenses. Do not wear makeup or nail estonian. Do not eat or drink anything after midnight. You must be HEALTHY on the day of your procedure. Medications Please take all routine medications for your heart, high blood pressure and seizures. These medications can be taken with small sips of water up to 2 hours prior to your procedure time. If you are taking any of the following medications they need to be stopped. You will need to consult your family physician or gas prover for permission to stop these medications. Antibiotics You will need to be rescheduled if you are being treated for an infection. Blood thinners Plavix, Rheopro, Ticlid, Lovenex, Heparin need to be stopped 14 days prior to procedure. Coumadin, Aspirin 81 mg or 325mg, - Need to be stopped 7 days prior. Diabetic Medications If you are on insulin please contact your prescribing physician regarding dosage. Non- Insulin dependent diabetics do not take your pills but bring them with you the day of the procedure. If you are taking Metformin hold 24 hrs before and 24 hours after. Supplements Vitamin E, Multi Vitamins, and fish oil. - need to be stopped 5 days prior. Pain Medications Do not take any pain medications are to be taken 6 hours prior to your appointment. Please stop at the front facer before leaving today to schedule a 2-3 week follow up appointment from the procedure date. Follow up Appointment . Please Call to [facility] [phone] (After 24 hours from today) Order placed Last procedure 03/22/2021 TF ERIKA L 4 03/22/2021 ERIKA L4 95% after procedure and still working but Left hip 6/10 pain when moving. Not sharp pain but throbbing. No pain when sitting. Last XR hip on 10/24/2021 Patient requesting another injection. Order pending if you agree. Thank you documented in this encounter [facility] 12-04-2021 Miscellaneous Notes Froy Sharma is scheduled for an injection on 12/27/[address] Nixon located on the 2nd floor of the [facility]. The day before your procedure, our staff will contact you with the scheduled time. * Please Remember * X-rays, MRI s or CT scans of the area being injected. This only applies to imaging done at an outside facility. You will be asked to reschedule if the films are not present. Insurance card, team truck driver s license, current medication / allergy list. Tray Checker that remains present during your entire procedure - it could take up to 2-3 hours. No procedure will be performed without a team truck driver. Leave all valuables and jewelry at home. Eyeglass case with you, if you wear glasses. Do not wear Contact lenses. Do not wear makeup or nail estonian. Do not eat or drink anything after midnight. You must be HEALTHY on the day of your procedure. Medications Please take all routine medications for your heart, high blood pressure and seizures. These medications can be taken with small sips of water up to 2 hours prior to your procedure time. If you are taking any of the following medications they need to be stopped. You will need to consult your family physician or gas prover for permission to stop these medications. Antibiotics You will need to be rescheduled if you are being treated for an infection. Blood thinners Plavix, Rheopro, Ticlid, Lovenex, Heparin need to be stopped 14 days prior to procedure. Coumadin, Aspirin 81 mg or 325mg, - Need to be stopped 7 days prior. Diabetic Medications If you are on insulin please contact your prescribing physician regarding dosage. Non- Insulin dependent diabetics do not take your pills but bring them with you the day of the procedure. If you are taking Metformin hold 24 hrs before and 24 hours after. Supplements Vitamin E, Multi Vitamins, and fish oil. - need to be stopped 5 days prior. Pain Medications Do not take any pain medications are to be taken 6 hours prior to your appointment. Please stop at the front facer before leaving today to schedule a 2-3 week follow up appointment from the procedure date. Follow up Appointment . Please Call to [facility] [phone] (After 24 hours from today) documented in this encounter [facility] 12-04-2021 Miscellaneous Notes Called patient to schedule injection. No answer. Left a message for patient to call office back to schedule an injection Order placed. 03/22/2021 ERIKA L4 95% after procedure and still working 04/04/21 Cervical epidural block 100% relief after- worked up until mid October 2021. Now its 30 %. Interested in another procedure. Order pending if you agree Left hip 6/10 pain when moving. Not sharp pain but throbbing. No pain when sitting. Last XR hip on 10/24/2021 Patient called; states that she would like to discuss scheduling SI injection wDr Oscar; requesting call back; ph. [phone] documented in this encounter [facility] 12-03-2021 Miscellaneous Notes Spoke with patient. Patient has been scheduled in [place] already on 02/24/[address] Chavez. Thank you. Pily Tirado Please call patient to schedule Cystoscopy with botox with Dr. Chavez. There are procedure slots open on 03/10 and 04/07. Thank you documented in this encounter [facility] 12-03-2021 History of Present illness Narrative Patient presents with: F/U 3 Month HPI: Froy Sharma is a 66 year old female who presents to the office today for review of health conditions. Concerns today: Low back pain, chronic knee and foot pain, interested in restarting PHYSICAL THERAPY and considering aquatic therapy to help with muscle strengthening and balancing. Weight loss, unintentional, hasn't had any major dietary changes. Was previously in the 140s range, now 128 lbs. Has had some fatigue symptoms and joint and muscle pain. [facility] has sent IFOBT to her home to complete. Ms. Sharma has past history of diabetes. Since our last visit she denies excessive thirst or increased frequency of urination, chest pain or dyspnea , new or unusual visual symptoms, and low sugar/hypoglycemic reactions. Depression- no. Follows a diabetic diet some of the time. She is compliant with medication(s) and is tolerating med(s) without any side effects. She reports checking her glucose on a once a day schedule with sugars in the fasting <150 range. Patient's last HgA1C was Hemoglobin A1C (%) Date Value 08/02/2021 5.6 05/06/2021 5.9 04/10/2020 6.1 09/26/2019 5.9 ) Last Ophthalmology exam was within the past 12 months Ms. Sharma reports history of hyperlipidemia. Current therapy includes atorvastatin (Lipitor) 20 mg. Denies side effects of muscle weakness or achiness. Her most recent lipid panels are reviewed. Cholesterol, Total (mg/dL) Date Value 05/06/2021 172 04/10/2020 146 HDL Cholesterol (mg/dL) Date Value 05/06/2021 35 04/10/2020 39 LDL Cholesterol (mg/dL) Date Value 05/06/2021 101 04/10/2020 84 Triglyceride (mg/dL) Date Value 05/06/2021 180 04/10/2020 115 Ms. Sharma indicates a history of hypertension and states that she is feeling well and denies any symptoms referable to elevated blood pressure. Specifically denies headache, chest pain, dyspnea, and peripheral edema. Patient denies any side effects of her medication(s) and is compliant with their regimen. Last 3 Encounter BP Readings: Date: BP: 12/03/2021 100/60 11/02/2021 118/66 10/24/2021 118/62 She watches her diet for sodium, low fat and low cholesterol some of the time. She does not check BP's generally. Froy gets minimal exercise. 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 Juarez High cholesterol Hypermobility syndrome Hypertension Insomnia Lumbar stenosis Dr. Juarez Malignant hyperthermia Myalgia and myositis, unspecified Other specified glaucoma Dr. Motta Psoriasis Dr. Phelan Right lumbar radiculitis Rotator cuff tear, left Trigeminal neuralgia PAST SURGICAL HISTORY Procedure Laterality Date BREAST LUMPECTOMY HX Left 11/2015, 01/2016 CATARACT EXTRACTION HX Bilateral 02/2018, 05/2018 COLONOSCOPY 05/22/2009 [facility] ENDOMETRIAL BIOPSY 05/24/2009 EXTRACTION, ERUPTED TOOTH OR EXPOSED ROOT (ELEVATION AND/OR FORCEPS REMOVAL) 1977 FUSION OF FINGER TENDONS 08/24/2017 4 fingers MASTECTOMY BRA Left 05/2015 MASTECTOMY HX Left 05/28/2015 reconstructed with gel implant MASTOPEXY Right 05/2015 and again Feb 2016 after implant completed NEUROPLASTY &/TRANSPOS MEDIAN NRV CARPAL TUNNE Right 2017 Carpal tunnel decomp NIPPLE/AREOLA RECONSTRUCTION Right 05/2016 PAST SURGICAL HISTORY OF laser surgery right eye to repair blood vessels PAST SURGICAL HISTORY OF several surgeries on feet PAST SURGICAL HISTORY OF 06/2009 Taking Tendon and Making Thumb Ligament (Right Wrist) PAST SURGICAL HISTORY OF 01/2010 Removal of Extra Tendon at Wrist (Right) PAST SURGICAL HISTORY OF Pisform bone right hand PAST SURGICAL HISTORY OF 1985,1987 wrist surgery bilateral PAST SURGICAL HISTORY OF 04/2014 slt on right eye PAST SURGICAL HISTORY OF Right 07/2016 Right trigger finger, [facility] PAST SURGICAL HISTORY OF 2009 D&C, polypectomy for postmenopausal bleeding PAST SURGICAL HISTORY OF 10/10/2020 thumb surgery on right hand at [facility] (fused the thumb) REPAIR FINGER TENDON 05/2012 right thumb TONSILLECTOMY PRIMARY/SECONDARY <AGE 12 Tonsillectomy Social History Tobacco Use Smoking status: Never Smokeless tobacco: Never Vaping Use Vaping Use: Never used Substance Use Topics Alcohol use: Not Currently Drug use: Never FAMILY HISTORY Problem Relation Age of Onset Hypertension Mother Anesthesia Mother Stroke Mother Parkinson s Disease Mother Dementia Hypertension Father Blood Disease Father Mylofibrosis Diabetes Sister Heart Sister Myocardial Infarction/Triple Bypass Hypertension Sister other (DCIS) Sister grade 2 Diabetes Sister Cancer Sister melanoma Hypertension Sister Diabetes Maternal Grandmother Diabetes Maternal Grandfather Diabetes Paternal Grandmother Diabetes Paternal Grandfather Diabetes Maternal Aunt other (DCIS) Other Allergies: ALLERGIES Allergen Reactions Olmesartan Diarrhea Sulfamethoxazole-Tr* Swelling Tongue swelled. Altace [Ramipril] Swelling Swells up throat. Amlodipine Itching Atenolol Other: See Comments Extremely low pulse Baclofen Intolerance Headache 20 min after taking Cats Swelling irritates eyes,hand swelling Fenofibrate Other: See Comments Sore Muscles Lyrica [Pregabalin] Intolerance tongue swelling Pineapple Anaphylaxis throat swells Ragweed Swelling Remeron [Mirtazapin* Other: See Comments Hyperactive and desire to danielle into things Trazodone Other: See Comments Bad Headache Tricor [Fenofibrate* Intolerance muscle pain [place] Swelling Throat and mouth swelling Erythromycin Intolerance turns bright red all over Serzone [Nefazodone* Intolerance States it makes her grouchy Wellbutrin [Bupropi* Intolerance States medication makes her nervous Current Meds: albuterol HFA (VENTOLIN HFA) 90 mcg/actuation inhaler Inhale 2 Puffs as instructed every 4 hours as needed. meloxicam (MOBIC) 15 mg tablet TAKE 1 TABLET DAILY WITH FOOD FOR PAIN atorvastatin (LIPITOR) 20 mg tablet Take 1 tablet by mouth once daily. irbesartan (AVAPRO) 150 mg tablet Take 1 tablet by mouth daily at bedtime. blood sugar diagnostic (BLOOD GLUCOSE TEST) test strip Test blood sugar(s) 1 times daily. Dx: Type 2 DM - Controlled E11.9 Insulin: No Lancets lancets Test blood sugar(s) 1 times daily. Dx: Type 2 DM - Controlled E11.9 Insulin: No metFORMIN (GLUCOPHAGE) 500 mg tablet Take 1 tablet by mouth once daily. metFORMIN (GLUCOPHAGE) 500 mg tablet Take 1 tablet by mouth once daily. metaxalone (SKELAXIN) 800 mg tablet Take 0.5-1 tablets by mouth three times daily as needed for pain (or muscle spasms). tolterodine ER (DETROL LA) 4 mg 24 hr capsule TAKE 1 CAPSULE DAILY ibuprofen (MOTRIN) 200 mg tablet Take 200 mg by mouth every 6 hours as needed. aspirin, enteric coated (ASPIRIN, ENTERIC COATED) 81 mg EC tablet aspirin Aspirin 81 MG PO DAILY September 23, 2018 Active 09-23-2018 [facility] ([id number]) cholecalciferol (VITAMIN D3) 1,000 unit tab tablet cholecalciferol Cholecalciferol (Vit D3) Active 1000 UNIT DAILY September 23, 2018 7:41pm 09-23-2018 [facility] ([id number]) latanoprost (XALATAN) 0.005 % ophthalmic solution Use 1 Drop in both eyes daily at bedtime. glucosamine/msm/chondroitin A ([id number] ORAL) montelukast (SINGULAIR) 10 mg tablet Take 1 tablet by mouth once daily. mometasone (NASONEX) 50 mcg/actuation nasal spray Use 2 Sprays in the nose once daily. cetirizine (ZYRTEC) 10 mg tablet Take 10 mg by mouth every other day. gabapentin (NEURONTIN) 300 mg capsule Take 1 capsule by mouth twice daily for 180 days. THERAPEUTIC MULTIVITAMIN TAB Take one (1) tablet daily Review of Systems: The remainder of the review of systems is negative. PE: 12/03/21 0826 BP: 100/60 Pulse: 80 Resp: 16 Temp: 36.1 C (97 F) TempSrc: Left Tympanic Weight: 58.1 kg (128 lb) Gen: A&OX3, NAD, non-toxic appearing HEENT: PERRLA, EOMs intact b/l, wearing glasses, nares without drainage, pharynx without erythema, exudate, lesions, or drainage. Uvula midline. Neck: No LAD, no thyromegaly, no meningismus. CV: RRR, no murmur Lungs: CTA b/l, no wheezing Skin: No rashes, lesions, or wounds on exposed skin. Reduced ROM neck, spine, shoulders, finger joints with hypermobility and arthritis changes, impaired balance with slowed gait Trace edema legs left slightly greater than right, no pitting Normal peripheral pulses ASSESSMENT/PLAN: 1. Type 2 diabetes mellitus without complication, without long-term current use of insulin (HCC) - ICD9: 250.00, ICD10: E11.9 (primary diagnosis) Controlled. - Continue current medications - Encouraged regular aerobic exercise and weight loss - Daily Asprin therapy recommended - HGB A1C 2. Screening for colon cancer - ICD9: V76.51, ICD10: Z12.11 - FECAL OCCULT BLOOD TEST 3. Unintentional weight loss - ICD9: 783.21, ICD10: R63.4 Labs as ordered. - COMP METABOLIC PANEL - TSH BLD - T4 FREE/FREE THYROX - T3 FREE BLD - PROTEIN ELECTROPHORESIS SERUM W/INTERP 4. Multiple thyroid nodules - ICD9: 241.1, ICD10: E04.2 Labs as ordered - TSH BLD - T4 FREE/FREE THYROX - T3 FREE BLD 5. Dyslipidemia - ICD9: 272.4, ICD10: E78.5 - to be determined upon return of lab results - Encouraged following a low fat, low cholesterol diet. - Check fasting lipid panel - LIPID PANEL BASIC - CBC + DIFF 6. Screening for osteoporosis - ICD9: V82.81, ICD10: Z13.820 - DXA-AXIAL SKELETON 7. Bilateral chronic knee pain - ICD9: 719.46, 338.29, ICD10: M25.561, M25.562, G89.29 - referral for PHYSICAL THERAPY, f/u with Orthopedics as well - CONSULT TO PHYSICAL THERAPY 8. Chronic midline low back pain with bilateral sciatica - ICD9: 724.2, 724.3, 338.29, ICD10: M54.41, M54.42, G89.29 - referral for PHYSICAL THERAPY, f/u with Orthopedics as well - CONSULT TO PHYSICAL THERAPY 9. SI (sacroiliac) joint dysfunction - ICD9: 724.6, ICD10: M53.3 - referral for PHYSICAL THERAPY, f/u with Orthopedics as well - CONSULT TO PHYSICAL THERAPY 10. Fatigue, unspecified type - ICD9: 780.79, ICD10: R53.83 See above, labs as ordered Hitesh Maria DO To ER if develops chest pain, shortness of breath, or severe worsening of symptoms. Discussed risks, benefits, alternatives, and potential side effects of medications. Patient expressed understanding and agreed with the plan. Hitesh Maria DO [address] [facility] [place] [address] documented in this encounter [facility] 11-25-2021 Miscellaneous Notes November 25, 2021 PID: [id number] Froy Sharma [address] [place] [address] Dear Ms. Sharma, We are pleased to inform you that the results of your recent breast imaging exam on 11/25/2021 are normal. Early detection of cancer is very important. We also understand recommendations regarding breast cancer screening are controversial. Please discuss with your primary care provider which strategy is best for you and whether a mammogram is right for you. Your imaging studies and report will be kept on file at [facility] as part of your permanent medical record and are available for your continuing care. Thank you for allowing us to help in meeting your health care needs. Sincerely, Dr. Mead Interpreting Radiologist [facility] (Normal over 40) documented in this encounter [facility] 11-25-2021 History of Present illness Narrative Radiology Service Progress Note PATIENT NAME: Froy Sharma DATE OF SERVICE: November 25, 2021 TIME: 7:56 AM PATIENT IDENTITY VERIFICATION COMPLETED USING TWO (2) IDENTIFIERS: Name and Date of confirmed by patient verbally. FALL SCREENING: Has the patient had 2 falls in the last year or 1 fall with injury or currently using an Ambulatory Assistive Device (Walker, Cane, Wheelchair, Crutches, etc.)? No PATIENT GENDER DATA: Female. status: : No status: NO. PATIENT RELEVANT IMPLANT DATA REVIEWED: Not Applicable RADIOLOGY DEPARTMENT: Mammography PERIPHERAL IV DATA: Not applicable SIGNED BY: RT Satish(R) November 25, 2021 7:56 AM documented in this encounter [facility] 11-08-2021 History of Present illness Narrative Radiology Service Progress Note PATIENT NAME: Froy Sharma DATE OF SERVICE: November 08, 2021 TIME: 8:42 AM PATIENT IDENTITY VERIFICATION COMPLETED USING TWO (2) IDENTIFIERS: Name and Date of confirmed by patient verbally. FALL SCREENING: Has the patient had 2 falls in the last year or 1 fall with injury or currently using an Ambulatory Assistive Device (Walker, Cane, Wheelchair, Crutches, etc.)? No PATIENT GENDER DATA: Female. status: : No status: NO. PATIENT RELEVANT IMPLANT DATA REVIEWED: Not Applicable RADIOLOGY DEPARTMENT: General X-ray: Exam(s) Completed: Lower Extremity X-Ray(s): Foot, Right and Wt. Bearing PERIPHERAL IV DATA: Not applicable SIGNED BY: RT Lynette(R) November 08, 2021 8:42 AM documented in this encounter [facility] 10-24-2021 History of Present illness Narrative Chief Complaint Patient presents with: Knee Pain: Lft knee pain on outside of knee, also lft hip weakness feels like pops out down into leg HPI Froy Sharma is a 66 year old female who presents here today for Above Complaints. Froy is an established patient of Dr. Maria, DO and myself. Concerns today.. Hip and knee pain --- L hip and knee pain x 3 days. Popping out sensation of hip. Knee pain x 1 week. Knee pain is worse to lateral side. Denies any fall or injury recently. Using walker for a few days d/t worse pain when bearing weight. Able to bear weight and ambulate but feels better with walker. Mild swelling to front of knee cap. Fell on L hip a few years ago and will have flares since where it acts up. Taking tylenol and advil for recent shoulder surgery discomfort that does help relief discomfort. In PT for shoulder currently. Has knee brace but had not been wearing it. Going on vacation in 2-3 weeks to [place] that will involve a lot of walking so would like to figure this out prior. No other concerns or complaints. Past medical history, appointments, medications, allergies reviewed. 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 Juarez High cholesterol Hypermobility syndrome Hypertension Insomnia Lumbar stenosis Dr. Juarez Malignant hyperthermia Myalgia and myositis, unspecified Other specified glaucoma Dr. Motta Psoriasis Dr. Phelan Right lumbar radiculitis Rotator cuff tear, left Trigeminal neuralgia Previous Surgical History PAST SURGICAL HISTORY Procedure Laterality Date BREAST LUMPECTOMY HX Left 11/2015, 01/2016 CATARACT EXTRACTION HX Bilateral 02/2018, 05/2018 COLONOSCOPY 05/22/2009 [facility] ENDOMETRIAL BIOPSY 05/24/2009 EXTRACTION, ERUPTED TOOTH OR EXPOSED ROOT (ELEVATION AND/OR FORCEPS REMOVAL) 1976 FUSION OF FINGER TENDONS 08/24/2017 4 fingers MASTECTOMY BRA Left 05/2015 MASTECTOMY HX Left 05/28/2015 reconstructed with gel implant MASTOPEXY Right 05/2015 and again Feb 2016 after implant completed NEUROPLASTY &/TRANSPOS MEDIAN NRV CARPAL TUNNE Right 2017 Carpal tunnel decomp NIPPLE/AREOLA RECONSTRUCTION Right 05/2016 PAST SURGICAL HISTORY OF laser surgery right eye to repair blood vessels PAST SURGICAL HISTORY OF several surgeries on feet PAST SURGICAL HISTORY OF 06/2009 Taking Tendon and Making Thumb Ligament (Right Wrist) PAST SURGICAL HISTORY OF 01/2010 Removal of Extra Tendon at Wrist (Right) PAST SURGICAL HISTORY OF Pisform bone right hand PAST SURGICAL HISTORY OF 1985,1987 wrist surgery bilateral PAST SURGICAL HISTORY OF 04/2014 slt on right eye PAST SURGICAL HISTORY OF Right 07/2016 Right trigger finger, [facility] PAST SURGICAL HISTORY OF 2009 D&C, polypectomy for postmenopausal bleeding PAST SURGICAL HISTORY OF 10/10/2020 thumb surgery on right hand at [facility] (fused the thumb) REPAIR FINGER TENDON 05/2012 right thumb TONSILLECTOMY PRIMARY/SECONDARY <AGE 12 Tonsillectomy Family History FAMILY HISTORY Problem Relation Age of Onset Hypertension Mother Anesthesia Mother Stroke Mother Parkinson s Disease Mother Dementia Hypertension Father Blood Disease Father Mylofibrosis Diabetes Sister Heart Sister Myocardial Infarction/Triple Bypass Hypertension Sister other (DCIS) Sister grade 2 Diabetes Sister Cancer Sister melanoma Hypertension Sister Diabetes Maternal Grandmother Diabetes Maternal Grandfather Diabetes Paternal Grandmother Diabetes Paternal Grandfather Diabetes Maternal Aunt other (DCIS) Other Patient Allergies ALLERGIES Allergen Reactions Olmesartan Diarrhea Sulfamethoxazole-Tr* Swelling Tongue swelled. Altace [Ramipril] Swelling Swells up throat. Amlodipine Itching Atenolol Other: See Comments Extremely low pulse Baclofen Intolerance Headache 20 min after taking Cats Swelling irritates eyes,hand swelling Fenofibrate Other: See Comments Sore Muscles Lyrica [Pregabalin] Intolerance tongue swelling Pineapple Anaphylaxis throat swells Ragweed Swelling Remeron [Mirtazapin* Other: See Comments Hyperactive and desire to danielle into things Trazodone Other: See Comments Bad Headache Tricor [Fenofibrate* Intolerance muscle pain [place] Swelling Throat and mouth swelling Erythromycin Intolerance turns bright red all over Serzone [Nefazodone* Intolerance States it makes her grouchy Wellbutrin [Bupropi* Intolerance States medication makes her nervous Current Medications Current Outpatient Medications on File Prior to Visit Medication Sig gabapentin (NEURONTIN) 300 mg capsule Take 1 capsule by mouth twice daily for 180 days. albuterol HFA (VENTOLIN HFA) 90 mcg/actuation inhaler Inhale 2 Puffs as instructed every 4 hours as needed. meloxicam (MOBIC) 15 mg tablet TAKE 1 TABLET DAILY WITH FOOD FOR PAIN atorvastatin (LIPITOR) 20 mg tablet Take 1 tablet by mouth once daily. irbesartan (AVAPRO) 150 mg tablet Take 1 tablet by mouth daily at bedtime. blood sugar diagnostic (BLOOD GLUCOSE TEST) test strip Test blood sugar(s) 1 times daily. Dx: Type 2 DM - Controlled E11.9 Insulin: No Lancets lancets Test blood sugar(s) 1 times daily. Dx: Type 2 DM - Controlled E11.9 Insulin: No metFORMIN (GLUCOPHAGE) 500 mg tablet Take 1 tablet by mouth once daily. metFORMIN (GLUCOPHAGE) 500 mg tablet Take 1 tablet by mouth once daily. metaxalone (SKELAXIN) 800 mg tablet Take 0.5-1 tablets by mouth three times daily as needed for pain (or muscle spasms). tolterodine ER (DETROL LA) 4 mg 24 hr capsule TAKE 1 CAPSULE DAILY ibuprofen (MOTRIN) 200 mg tablet Take 200 mg by mouth every 6 hours as needed. aspirin, enteric coated (ASPIRIN, ENTERIC COATED) 81 mg EC tablet aspirin Aspirin 81 MG PO DAILY September 23, 2018 Active 09-23-2018 [facility] ([id number]) cholecalciferol (VITAMIN D3) 1,000 unit tab tablet cholecalciferol Cholecalciferol (Vit D3) Active 1000 UNIT DAILY September 23, 2018 7:41pm 09-23-2018 [facility] ([id number]) latanoprost (XALATAN) 0.005 % ophthalmic solution Use 1 Drop in both eyes daily at bedtime. glucosamine/msm/chondroitin A ([id number]-UJS ORAL) montelukast (SINGULAIR) 10 mg tablet Take 1 tablet by mouth once daily. mometasone (NASONEX) 50 mcg/actuation nasal spray Use 2 Sprays in the nose once daily. cetirizine (ZYRTEC) 10 mg tablet Take 10 mg by mouth every other day. THERAPEUTIC MULTIVITAMIN TAB Take one (1) tablet daily No current facility-administered medications on file prior to visit. Social History Social History Tobacco Use Smoking status: Never Smokeless tobacco: Never Vaping Use Vaping Use: Never used Substance Use Topics Alcohol use: Not Currently Drug use: Never REVIEW OF SYSTEMS: as above Reviewed relevant PMHx, PSHx, Social Hx, current medications and allergies. Review of Symptoms REVIEW OF SYSTEMS See HPI. All other systems are negative. EXAM: BP 118/62 (BP Site: Left Arm, BP Position: Sitting, BP Cuff Size: Regular Adult) Pulse 68 Resp 14 Wt 59.1 kg (130 lb 3.2 oz) LMP 09/05/2005 BMI 23.06 kg/m General Appearance: Well appearing, alert, in no acute distress, well-hydrated, well nourished.. Skin: Skin color, texture, turgor normal, no suspicious rashes or lesions. Head: Normocephalic, no masses, lesions, tenderness or abnormalities. Extremities: No deformities, edema, skin discoloration, clubbing or cyanosis. Good capillary refill. . Musculoskeletal: Mild joint swelling,No deformity or tenderness. Peripheral Pulses: Normal. Neurologic: Gait normal. Reflexes normal and symmetric. Sensation grossly intact. Health Maintenance List SPIROMETRY Never done COLORECTAL CANCER SCREENING due on 12/11/2020 INFLUENZA(1) due on 10/10/2021 MAMMOGRAM due on 11/22/2021 DILATED RETINAL EXAM due on 01/24/2022 HBA1C due on 02/01/2022 DEPRESSION SCREENING due on 02/04/2022 COVID-19 VACCINE(4 - Booster for Moderna series) due on 02/21/2022 LDL CHOLESTEROL due on 05/06/2022 URINE ALBUMIN:CREATININE RATIO due on 07/03/2022 DIABETIC FOOT EXAM due on 07/03/2022 ANNUAL PCP TEAM CHRONIC DISEASE VISIT due on 08/08/2022 BP CONTROLLED (<130/80) due on 10/08/2022 DTAP,TDAP,TD(10 - Td or Tdap) due on 02/19/2028 BONE DENSITY Completed HEPATITIS C SCREENING Completed SHINGRIX VACCINE Completed PNEUMOCOCCAL: 65+ Completed ADVANCE DIRECTIVE DISCUSSION Discontinued ASSESSMENT/PLAN: 1. Hip pain - ICD9: 719.45, ICD10: M25.559 (primary diagnosis) X-ray hip and knee for alignment issues. Continue to take NSAID as prescribed. Has extra strength ibuprofen at home. Discussed importance of immobility of knee brace. Pt agreeable to try to wear. If symptoms do not improve, discussed short burst of prednisone PO if needed for upcoming trip. HgA1c well controlled. - XR HIP GENERAL 3V PELV/AP/LAT LEFT - XR KNEE GENERAL 4V AP BOTH/PA BOTH/LAT/MERC LEFT 2. Acute pain of left knee - ICD9: 719.46, ICD10: M25.562 See above. - XR HIP GENERAL 3V PELV/AP/LAT LEFT - XR KNEE GENERAL 4V AP BOTH/PA BOTH/LAT/MERC LEFT RTO as needed if symptoms worsen or do not improve. Prescription instructions reviewed with patient as applicable. Potential red flag symptoms discussed with the patient. Reviewed appropriate action plan to take if red flag symptoms occur. Patient agreeable to treatment plan. Stephanie Ladd APRN.[facility] [address] [place] [address] documented in this encounter [facility] 10-21-2021 Instructions Petra Langley - 10/21/2021 8:19 AM EDT Continue with surgical shoe or firm sole sneaker Can bart tape the toes together although I do not feel that is necessary Repeat xrays in 1 month Will call with results. Petra Langley DPM documented in this encounter [facility] 10-21-2021 History of Present illness Narrative Images from the original note were not included. Initial Podiatric Office Visit: Chief Complaint: This 66 year old female who presents with chief complaint:fracture of right 5th toe HPI Patient presents to clinic for evaluation of right foot She states she dropped a bottle of shampoo on her right 5th toe on october 06 She went to urgent care and had xrays that confirmed fracture Patient is wearing post-op shoe She is taping the toe to the 4th toe She states the pain is improving. PAIN EVALUATION 10/21/2021 0805 Pain Level: 3 Pain Location: Toe Description: Aching Duration Amount of Time: 2 Duration Units: Weeks Frequency: Intermittent Intervention/Comfort measure: Reposition;Relaxation;Other: See comment bart tape, post op shoe Hemoglobin A1C (%) Date Value 08/02/2021 5.6 05/06/2021 5.9 04/10/2020 6.1 09/26/2019 5.9 01/27/2019 5.9 08/10/2018 5.8 01/28/2018 5.8 PCP: Hitesh Maria DO PAST MEDICAL HISTORY Diagnosis Date Asthma Breast cancer (HCC) mastectomy, was seeing Masci Cervical stenosis of spine DCIS (ductal carcinoma in situ) 09/201415 grade 3 Delayed emergence from general anesthesia Diabetes mellitus, type II (HCC) Foraminal stenosis of cervical region Dr. Juarez High cholesterol Hypermobility syndrome Hypertension Insomnia Lumbar stenosis Dr. Juarez Malignant hyperthermia Myalgia and myositis, unspecified Other specified glaucoma Dr. Motta Psoriasis Dr. Phelan Right lumbar radiculitis Rotator cuff tear, left Trigeminal neuralgia Current Outpatient Medications Medication Sig gabapentin (NEURONTIN) 300 mg capsule Take 1 capsule by mouth twice daily for 180 days. albuterol HFA (VENTOLIN HFA) 90 mcg/actuation inhaler Inhale 2 Puffs as instructed every 4 hours as needed. meloxicam (MOBIC) 15 mg tablet TAKE 1 TABLET DAILY WITH FOOD FOR PAIN atorvastatin (LIPITOR) 20 mg tablet Take 1 tablet by mouth once daily. irbesartan (AVAPRO) 150 mg tablet Take 1 tablet by mouth daily at bedtime. blood sugar diagnostic (BLOOD GLUCOSE TEST) test strip Test blood sugar(s) 1 times daily. Dx: Type 2 DM - Controlled E11.9 Insulin: No Lancets lancets Test blood sugar(s) 1 times daily. Dx: Type 2 DM - Controlled E11.9 Insulin: No metFORMIN (GLUCOPHAGE) 500 mg tablet Take 1 tablet by mouth once daily. metFORMIN (GLUCOPHAGE) 500 mg tablet Take 1 tablet by mouth once daily. metaxalone (SKELAXIN) 800 mg tablet Take 0.5-1 tablets by mouth three times daily as needed for pain (or muscle spasms). tolterodine ER (DETROL LA) 4 mg 24 hr capsule TAKE 1 CAPSULE DAILY ibuprofen (MOTRIN) 200 mg tablet Take 200 mg by mouth every 6 hours as needed. aspirin, enteric coated (ASPIRIN, ENTERIC COATED) 81 mg EC tablet aspirin Aspirin 81 MG PO DAILY September 23, 2018 Active 09-23-2018 [facility] ([id number]) cholecalciferol (VITAMIN D3) 1,000 unit tab tablet cholecalciferol Cholecalciferol (Vit D3) Active 1000 UNIT DAILY September 23, 2018 7:41pm 09-23-2018 [facility] ([id number]) latanoprost (XALATAN) 0.005 % ophthalmic solution Use 1 Drop in both eyes daily at bedtime. glucosamine/msm/chondroitin A (STJIAJJCTWF-MZBNTA-PCJ ORAL) montelukast (SINGULAIR) 10 mg tablet Take 1 tablet by mouth once daily. mometasone (NASONEX) 50 mcg/actuation nasal spray Use 2 Sprays in the nose once daily. cetirizine (ZYRTEC) 10 mg tablet Take 10 mg by mouth every other day. THERAPEUTIC MULTIVITAMIN TAB Take one (1) tablet daily No current facility-administered medications for this visit. ALLERGIES Allergen Reactions Olmesartan Diarrhea Sulfamethoxazole-Tr* Swelling Tongue swelled. Altace [Ramipril] Swelling Swells up throat. Amlodipine Itching Atenolol Other: See Comments Extremely low pulse Baclofen Intolerance Headache 20 min after taking Cats Swelling irritates eyes,hand swelling Fenofibrate Other: See Comments Sore Muscles Lyrica [Pregabalin] Intolerance tongue swelling Pineapple Anaphylaxis throat swells Ragweed Swelling Remeron [Mirtazapin* Other: See Comments Hyperactive and desire to danielle into things Trazodone Other: See Comments Bad Headache Tricor [Fenofibrate* Intolerance muscle pain [place] Swelling Throat and mouth swelling Erythromycin Intolerance turns bright red all over Serzone [Nefazodone* Intolerance States it makes her grouchy Wellbutrin [Bupropi* Intolerance States medication makes her nervous PAST SURGICAL HISTORY Procedure Laterality Date BREAST LUMPECTOMY HX Left 11/2015, 01/2016 CATARACT EXTRACTION HX Bilateral 02/2018, 05/2018 COLONOSCOPY 05/22/2009 [facility] ENDOMETRIAL BIOPSY 05/24/2009 EXTRACTION, ERUPTED TOOTH OR EXPOSED ROOT (ELEVATION AND/OR FORCEPS REMOVAL) 1976 FUSION OF FINGER TENDONS 08/24/2017 4 fingers MASTECTOMY BRA Left 05/2015 MASTECTOMY HX Left 05/28/2015 reconstructed with gel implant MASTOPEXY Right 05/2015 and again Feb 2016 after implant completed NEUROPLASTY &/TRANSPOS MEDIAN NRV CARPAL TUNNE Right 2017 Carpal tunnel decomp NIPPLE/AREOLA RECONSTRUCTION Right 05/2016 PAST SURGICAL HISTORY OF laser surgery right eye to repair blood vessels PAST SURGICAL HISTORY OF several surgeries on feet PAST SURGICAL HISTORY OF 06/2009 Taking Tendon and Making Thumb Ligament (Right Wrist) PAST SURGICAL HISTORY OF 01/2010 Removal of Extra Tendon at Wrist (Right) PAST SURGICAL HISTORY OF Pisform bone right hand PAST SURGICAL HISTORY OF 1985,1987 wrist surgery bilateral PAST SURGICAL HISTORY OF 04/2014 slt on right eye PAST SURGICAL HISTORY OF Right 07/2016 Right trigger finger, [facility] PAST SURGICAL HISTORY OF 2009 D&C, polypectomy for postmenopausal bleeding PAST SURGICAL HISTORY OF 10/10/2020 thumb surgery on right hand at [facility] (fused the thumb) REPAIR FINGER TENDON 05/2012 right thumb TONSILLECTOMY PRIMARY/SECONDARY <AGE 12 Tonsillectomy FAMILY HISTORY Problem Relation Age of Onset Hypertension Mother Anesthesia Mother Stroke Mother Parkinson s Disease Mother Dementia Hypertension Father Blood Disease Father Mylofibrosis Diabetes Sister Heart Sister Myocardial Infarction/Triple Bypass Hypertension Sister other (DCIS) Sister grade 2 Diabetes Sister Cancer Sister melanoma Hypertension Sister Diabetes Maternal Grandmother Diabetes Maternal Grandfather Diabetes Paternal Grandmother Diabetes Paternal Grandfather Diabetes Maternal Aunt other (DCIS) Other Social History Tobacco Use Smoking status: Never Smokeless tobacco: Never Vaping Use Vaping Use: Never used Substance Use Topics Alcohol use: Not Currently Drug use: Never REVIEW OF SYSTEMS GENERAL: Negative for Malaise, significant weight loss, fever RESPIRATORY: Negative for cough, wheezing and shortness of breath CARDIOVASCULAR: Negative for chest pain, leg swelling and palpitations GI: Negative for abdominal discomfort, blood in stools or black stools and change in bowel habits : Negative for dysuria, frequency and incontinence MUSCULOSKELETAL: Negative for joint pain or swelling, back pain, and muscle pain. SKIN: Negative for lesions, rash, and itching. HEMATOLOGY/LYMPHOLOGY Negative for prolonged bleeding, bruising easily, and swollen nodes. ENDOCRINE: Negative for cold or heat intolerance, polyuria, polydipsia and goiter. NEURO: negative Physical Exam: Constitutional: Pt is a well developed 66 year old female who is alert, oriented and cooperative Eyes: Following during examination. No redness or drainage. Respiratory: RR normal and nonlabored. Even breathing. No evidence of distress or shortness of breath. Psychology: Patient is engaged during conversation. Normal affect and mood. Does not appear depressed or anxious during encounter. Vascular: Dorsalis pedis and posterior tibial pulses palpable as b/l Capillary Fill time < 5 seconds to digits 1-5 b/l Skin temperature warm to warm proximal to distal b/l Hair growth present to digits Mild swelling is present in feet Neurological: intact light touch/epicritic sensation b/l intact protective sensation no significant neurological deficits Dermatological: Nails 1-5 b/l appear normal. Webspaces clean and dry 1-4 b/l. Skin appears well hydrated and supple. good color, texture, turgor. No open lesions present. Callus present to left 4th metatarsal Musculoskeletal/Orthopaedic: Patient has no pain to palpation of b/l feet Foot type is pronated structurally AJ ROM is full with knee extended and flexed 1st MPJ is full when loaded and no pain or crepitus are noted with ROM. MTJ, STJ are full and free of pain and crepitus. +5/5 muscle strength dorsiflexion, plantarflexion, inversion, eversion b/l Radiographs: 3 views left foot reviewed October 21, 2021: I have personally reviewed and interpreted these XR myself: nondisplaced fracture of left 5th toe ASSESSMENT: (S92.354K) Closed nondisplaced fracture of distal phalanx of lesser toe of right foot, initial encounter (primary encounter diagnosis) (L85.9) Hyperkeratosis PLAN: 1. History and physical examination performed. 2. XR reviewed with patient and interpreted today 3. She has nondisplaced fracture of right 5th toe. Continue with firm sole shoe or surgical shoe. Repeat xrays in 3-4 weeks. 4. Callus reduced with 15 blade 5. Will call with results. Petra Langley DPM Podiatry [address] [facility] [address] Dept: [phone] Dept . AMB ROOMING INTAKE FLOWSHEET DATA Risk Screening Do you have concerns about personal safety or safety in the home?: No Pain Pain Level: 3 Pain Location: Toe Description: Aching Duration Amount of Time: 2 Duration Units: Weeks Frequency: Intermittent Intervention/Comfort measure: Reposition, Relaxation, Other: See comment (bart tape, post op shoe) Patient presents with: Right 5th Toe - Established Patient, Fracture Patient here to follow up from Urgent Care. Seen on 10/08 for fracture of toe. Reports 2 days earlier she had dropped a bottle of shower gel on her toe. Is bart taping toe and wearing a post op shoe. Continues with mild intermittent pain to toe. Also requesting debridement of callus. documented in this encounter [facility] 10-16-2021 Miscellaneous Notes The following approved medication requests have been transmitted electronically. Requested Prescriptions Signed Prescriptions Disp Refills gabapentin (NEURONTIN) 300 mg capsule 180 capsule 1 Sig: Take 1 capsule by mouth twice daily for 180 days. Authorizing Provider: JAMIL NIXON DO Jose 02/07/21 No up coming visit Sofi Fields MA documented in this encounter [facility] 10-08-2021 Instructions Hannah Liriano APRN.MARCOS - 10/08/2021 9:05 AM EDT Keflex for 7 days Tylenol/ibuprofen as needed for discomfort AZO otc Increase hydration -Follow up with PCP or return to clinic if symptoms not improving in 3 days or if you develop any new (or worsening) symptoms such as fever, chills or back pain go to ER. Bart tape/post op shoe Follow up in [address] Langley documented in this encounter [facility] 10-08-2021 History of Present illness Narrative HPI Froy Sharma is a 66 year old female who presents today for CC of burning with urination for one day. She is also having suprapubic pain. She has not used any medications or treatment . She denies any nausea, vomiting or fever or back pain. She is also having right foot pain that started 2 days ago after dropping something out of the cupboard. She is also having bruising and swelling. 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 Juarez High cholesterol Hypermobility syndrome Hypertension Insomnia Lumbar stenosis Dr. Juarez Malignant hyperthermia Myalgia and myositis, unspecified Other specified glaucoma Dr. Motta Psoriasis Dr. Phelan Right lumbar radiculitis Rotator cuff tear, left Trigeminal neuralgia I have confirmed and edited as necessary, the [facility] REVIEW OF SYSTEMS PAIN ASSESSMENT: Negative for pain, history of chronic pain, or current treatment for a chronic pain condition. GENERAL: No weight loss, malaise or fevers GI: No nausea, vomiting, or diarrhea : Negative for incontinence, decreased stream, and hematuria, Positive for dysuria one day and frequency one MUSCULOSKELETAL: Negative for joint pain or swelling, back pain or muscle pain SKIN: Negative for lesions, rash, and itching All other systems are negative PHYSICAL EXAMINATION: General appearance: Well appearing, alert, in no acute distress, well-hydrated, well nourished. Skin: Skin color, texture, turgor normal, no suspicious rashes or lesions Head: Normocephalic, no masses, lesions, tenderness or abnormalitiesLungs: Lungs clear to auscultation. No wheezing, rhonchi, rales. Heart: RRR without murmur, gallop, or rubs. No ectopy Extremities: Pulses: 2+ pedal Musculoskeletal: Negative findings: Pulses: right 2+, Positive findings: pain and tenderness distal pinky toe and 4th toe Peripheral pulses: Capillary refill <2secs, strong peripheral pulses Neuro: Negative. ASSESSMENT/PLAN: 1. Burning with urination - ICD9: 788.1, ICD10: R30.0 (primary diagnosis) acute - UA positive for jessica esterase, hematuria, and nitrates - Send urine for culture - Begin treatment with keflex for 7 days - Patient education for prevention given - UA DIP, URINE (POC) - URINE CULTURE 2. Foot pain, right - ICD9: 729.5, ICD10: M79.671 - XR FOOT GENERAL 3V AP/LAT/OBL RIGHT RESULT: Suspect nondisplaced fracture of the fifth distal phalanx. It is difficult to assess the fourth distal phalanx due to flexion deformity at the fourth DIP joint. Otherwise, no fracture. Bilateral bunionectomy and first metatarsal head osteotomy. Bilateral hallux valgus and mild-moderate bilateral first MTP osteoarthritis. Mild scattered degenerative changes at the interphalangeal joints. Hammertoe deformities. Right Achilles insertional spur. IMPRESSION: Suspect nondisplaced fracture of the RIGHT fifth distal phalanx. It is difficult to assess the fourth distal phalanx due to flexion deformity at the fourth DIP joint. If there is ongoing clinical concern, dedicated toe radiographs can be obtained. Interpreted by : ONIEL TENORIO DO 3. Closed nondisplaced fracture of distal phalanx of lesser toe of right foot, initial encounter - ICD9: 826.0, ICD10: S92.534A Bart tape, and post op shoe ordered, wear until seen by Dr. Langley Tylenol as needed for pain - POST - OP SHOE Diagnosis and treatment plan were discussed and questions were answered to the patient's satisfaction. Pt acknowledged understanding of concepts and follow up plan. Specific signs and symptoms that would indicate the need for higher level of care were discussed in detail warranting prompt ER evaluation. Hannah Liriano APRN.CNP documented in this encounter [facility] 10-07-2021 Miscellaneous Notes The following approved medication requests have been transmitted electronically. Requested Prescriptions Signed Prescriptions Disp Refills gabapentin (NEURONTIN) 300 mg capsule 180 capsule 1 Sig: Take 1 capsule by mouth twice daily for 180 days. Authorizing Provider: JAMIL NIXON DO JOSE: 02/07/2021 NOV: Visit date not found Orders Pended Lorraine Marquez MA documented in this encounter [facility] 08-28-2021 Miscellaneous Notes Encounter Diagnosis ICD-10-CM 1. Urge incontinence N39.41 CYSTOSCOPY WHI onabotulinum toxin type A 100 Units injection (BOTOX) 2. Urinary frequency R35.0 CYSTOSCOPY WHI onabotulinum toxin type A 100 Units injection (BOTOX) 3. Urinary urgency R39.15 CYSTOSCOPY WHI onabotulinum toxin type A 100 Units injection (BOTOX) Patient sent [employer] message requesting to have repeat Botox injections in October. Last visit 02/18/21 IMPRESSION: Normal bladder and urethra s/p 100units Botox PLAN: 1. Follow-up in 6 months to 1 year for repeat Botox injection 2. Will send home with [employer] supplies today in case she develops urinary retention 3. Continue Detrol but if still having bothersome urinary urgency, frequency and urge incontinence, then will either add Mirabegron 25mg daily or switch from Detrol to Mirabegron Jeremy Chavez MD ======= Orders pended, routing to UroGyn DIRECTOR OF PURCHASING's. Britta Lynn RN documented in this encounter [facility] 08-23-2021 Miscellaneous Notes Phone call placed patient advised (see prior provider encounter) Patient expressed concerns with scheduled shoulder surgery, completing ATB prescribed for UTI. Advised to contact surgeon, doctors office performing shoulder surgery to coordinate care. Patient verbalized understanding, agreed with plan of care. Telma Gaspar LPN Bacterial infection noted on urine culture. Continue antibiotics as prescribed. Follow-up with PCP as needed. Manuel Stock APRN.CNP documented in this encounter [facility] 08-08-2021 Instructions Nya Barba APRN.CNP - 08/08/2021 12:13 PM EDT We will get your records and forms sent over to your surgeon. documented in this encounter [facility] 08-08-2021 History of Present illness Narrative Chief Complaint Patient presents with: Pre-Op Exam HPI Froy Sharma is a 66 year old female who presents here today for Above Complaints. Today: Is having surgery at the [facility] on her left shoulder, with Dr. Luis Benavides on 08/29. Is here today for a pre-surgery physical. Denies complaints or concerns today. Past medical history, appointments, medications, allergies reviewed. 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 Juarez High cholesterol Hypermobility syndrome Hypertension Insomnia Lumbar stenosis Dr. Juarez Malignant hyperthermia Myalgia and myositis, unspecified Other specified glaucoma Dr. Motta Psoriasis Dr. Phelan Right lumbar radiculitis Rotator cuff tear, left Trigeminal neuralgia Previous Surgical History PAST SURGICAL HISTORY Procedure Laterality Date BREAST LUMPECTOMY HX Left 11/2015, 01/2016 CATARACT EXTRACTION HX Bilateral 02/2018, 05/2018 COLONOSCOPY 05/22/2009 [facility] ENDOMETRIAL BIOPSY 05/24/2009 EXTRACTION, ERUPTED TOOTH OR EXPOSED ROOT (ELEVATION AND/OR FORCEPS REMOVAL) 1977 FUSION OF FINGER TENDONS 08/24/2017 4 fingers MASTECTOMY BRA Left 05/2015 MASTECTOMY HX Left 05/28/2015 reconstructed with gel implant MASTOPEXY Right 05/2015 and again Feb 2016 after implant completed NEUROPLASTY &/TRANSPOS MEDIAN NRV CARPAL TUNNE Right 2017 Carpal tunnel decomp NIPPLE/AREOLA RECONSTRUCTION Right 05/2016 PAST SURGICAL HISTORY OF laser surgery right eye to repair blood vessels PAST SURGICAL HISTORY OF several surgeries on feet PAST SURGICAL HISTORY OF 06/2009 Taking Tendon and Making Thumb Ligament (Right Wrist) PAST SURGICAL HISTORY OF 01/2010 Removal of Extra Tendon at Wrist (Right) PAST SURGICAL HISTORY OF Pisform bone right hand PAST SURGICAL HISTORY OF 1985,1987 wrist surgery bilateral PAST SURGICAL HISTORY OF 04/2014 slt on right eye PAST SURGICAL HISTORY OF Right 07/2016 Right trigger finger, [facility] PAST SURGICAL HISTORY OF 2009 D&C, polypectomy for postmenopausal bleeding PAST SURGICAL HISTORY OF 10/10/2020 thumb surgery on right hand at [facility] (fused the thumb) REPAIR FINGER TENDON 05/2012 right thumb TONSILLECTOMY PRIMARY/SECONDARY <AGE 12 Tonsillectomy Family History FAMILY HISTORY Problem Relation Age of Onset Hypertension Mother Anesthesia Mother Stroke Mother Parkinson s Disease Mother Dementia Hypertension Father Blood Disease Father Mylofibrosis Diabetes Sister Heart Sister Myocardial Infarction/Triple Bypass Hypertension Sister other (DCIS) Sister grade 2 Diabetes Sister Cancer Sister melanoma Hypertension Sister Diabetes Maternal Grandmother Diabetes Maternal Grandfather Diabetes Paternal Grandmother Diabetes Paternal Grandfather Diabetes Maternal Aunt other (DCIS) Other Patient Allergies ALLERGIES Allergen Reactions Olmesartan Diarrhea Sulfamethoxazole-Tr* Swelling Tongue swelled. Altace [Ramipril] Swelling Swells up throat. Amlodipine Itching Atenolol Other: See Comments Extremely low pulse Baclofen Intolerance Headache 20 min after taking Cats Swelling irritates eyes,hand swelling Fenofibrate Other: See Comments Sore Muscles Lyrica [Pregabalin] Intolerance tongue swelling Pineapple Anaphylaxis throat swells Ragweed Swelling Remeron [Mirtazapin* Other: See Comments Hyperactive and desire to danielle into things Trazodone Other: See Comments Bad Headache Tricor [Fenofibrate* Intolerance muscle pain [place] Swelling Throat and mouth swelling Erythromycin Intolerance turns bright red all over Serzone [Nefazodone* Intolerance States it makes her grouchy Wellbutrin [Bupropi* Intolerance States medication makes her nervous Current Medications Current Outpatient Medications on File Prior to Visit Medication Sig meloxicam (MOBIC) 15 mg tablet TAKE 1 TABLET DAILY WITH FOOD FOR PAIN atorvastatin (LIPITOR) 20 mg tablet Take 1 tablet by mouth once daily. irbesartan (AVAPRO) 150 mg tablet Take 1 tablet by mouth daily at bedtime. blood sugar diagnostic (BLOOD GLUCOSE TEST) test strip Test blood sugar(s) 1 times daily. Dx: Type 2 DM - Controlled E11.9 Insulin: No Lancets lancets Test blood sugar(s) 1 times daily. Dx: Type 2 DM - Controlled E11.9 Insulin: No metFORMIN (GLUCOPHAGE) 500 mg tablet Take 1 tablet by mouth once daily. metFORMIN (GLUCOPHAGE) 500 mg tablet Take 1 tablet by mouth once daily. metaxalone (SKELAXIN) 800 mg tablet Take 0.5-1 tablets by mouth three times daily as needed for pain (or muscle spasms). gabapentin (NEURONTIN) 300 mg capsule Take 1 capsule by mouth twice daily for 180 days. tolterodine ER (DETROL LA) 4 mg 24 hr capsule TAKE 1 CAPSULE DAILY ibuprofen (ADVIL) 200 mg tablet Take 200 mg by mouth every 6 hours as needed. albuterol HFA (VENTOLIN HFA) 90 mcg/actuation inhaler Inhale 2 Puffs as instructed every 4 hours as needed. aspirin, enteric coated (ASPIRIN, ENTERIC COATED) 81 mg EC tablet aspirin Aspirin 81 MG PO DAILY September 23, 2018 Active 09-23-2018 [facility] ([id number]) cholecalciferol (VITAMIN D3) 1,000 unit tab tablet cholecalciferol Cholecalciferol (Vit D3) Active 1000 UNIT DAILY September 23, 2018 7:41pm 09-23-2018 [facility] ([id number]) latanoprost (XALATAN) 0.005 % ophthalmic solution Use 1 Drop in both eyes daily at bedtime. glucosamine/msm/chondroitin A ([id number]-LORDMM-QGJ ORAL) montelukast (SINGULAIR) 10 mg tablet Take 1 tablet by mouth once daily. mometasone (NASONEX) 50 mcg/actuation nasal spray Use 2 Sprays in the nose once daily. cetirizine (ZYRTEC) 10 mg tablet Take 10 mg by mouth every other day. THERAPEUTIC MULTIVITAMIN TAB Take one (1) tablet daily phenazopyridine (PYRIDIUM) 200 mg tablet Take 1 tablet by mouth three times daily as needed. Current Facility-Administered Medications on File Prior to Visit Medication perflutren lipid microspheres 1.3 mL in NaCl (PF) 0.9% 10 mL injection (DEFINITY) sodium chloride 0.9 % (flush) 10 mL (BD POSIFLUSH) Social History Social History Tobacco Use Smoking status: Never Smoker Smokeless tobacco: Never Used Vaping Use Vaping Use: Never used Substance Use Topics Alcohol use: Not Currently Drug use: Never Review of Symptoms REVIEW OF SYSTEMS see HPI, otherwise negative EXAM: BP 126/82 (BP Site: Left Arm, BP Position: Sitting, BP Cuff Size: Regular Adult) Pulse 81 Resp 16 Wt 60.6 kg (133 lb 9.6 oz) LMP 09/05/2005 SpO2 96% BMI 23.67 kg/m General Appearance: Well appearing, alert, in no acute distress, well-hydrated, well nourished.. Head: Normocephalic, no masses, lesions, tenderness or abnormalities. Ears: External ears normal, canals clear. Oropharynx: Lips, mucosa, and tongue normal, teeth and gums normal, oropharynx normal. Neck: Supple, no adenopathy; thyroid symmetric, normal size, no bruits. Lungs: Lungs clear to auscultation. No wheezing, rhonchi, rales.. Heart: RRR without murmur, gallop, or rubs. No ectopy. Abdomen: Normal abdominal exam, Abdomen soft, non-tender. Bowel sounds normal. No masses, organomegaly. Extremities: No deformities, edema, skin discoloration, clubbing or cyanosis. Good capillary refill. . Musculoskeletal: No joint swelling, deformity, or tenderness. Peripheral Pulses: Normal. Lymph Nodes: No cervical lymphadenopathy and No supraclavicular lymphadenopathy. Health Maintenance List SPIROMETRY Never done COLORECTAL CANCER SCREENING due on 12/11/2020 COVID-19 VACCINE(4 - Booster for Moderna series) due on 04/30/2021 MAMMOGRAM due on 11/22/2021 DILATED RETINAL EXAM due on 01/24/2022 HBA1C due on 02/01/2022 DEPRESSION SCREENING due on 02/04/2022 LDL CHOLESTEROL due on 05/06/2022 URINE ALBUMIN:CREATININE RATIO due on 07/03/2022 DIABETIC FOOT EXAM due on 07/03/2022 ANNUAL PCP TEAM CHRONIC DISEASE VISIT due on 07/03/2022 BP CONTROLLED (<130/80) due on 07/03/2022 DTAP,TDAP,TD(10 - Td or Tdap) due on 02/19/2028 BONE DENSITY Completed INFLUENZA Completed HEPATITIS C SCREENING Completed SHINGRIX VACCINE Completed PNEUMOCOCCAL: 65+ Completed ADVANCE DIRECTIVE DISCUSSION Discontinued Data reviewed Previous records, office notes ASSESSMENT/PLAN: 1. Preop examination - ICD9: V72.84, ICD10: Z01.818 Patient is clear for surgery from my standpoint. EKG NSR without ectopy. Will complete paperwork and fax back to her surgeon. - ECG COMPLETE Nya Barba APRN.MARCOS documented in this encounter [facility] 07-05-2021 Miscellaneous Notes Pt. informed. Kiah Arnold LPN Please inform patient that her urine culture shows a UTI. Needs to start rx as below Hitesh Maria DO The following approved medication requests have been transmitted electronically. Signed Prescriptions Disp Refills ciprofloxacin HCl (CIPRO) 500 mg tablet 14 tablet 0 Sig: Take 1 tablet by mouth twice daily for 7 days. Authorizing Provider: HITESH MARIA DO documented in this encounter [facility] 06-12-2021 History of Present illness Narrative POPULATION HEALTH NAVIGATION OUTREACH Action/ Patient due for Colonoscopy, AD Spoke with patient. Declined colonoscopy scheduling and asked to no longer be contacted about getting a colonoscopy. States she will reach out when she is ready and would like it if no contact was made in the future in regards to this test. Pt identified by name and : YES, via phone Outreach Outcome/Action Spoke to patient or caregiver: Patient declined Reason for Outreach Care Gap or Scheduling/Wellness visits Payer: Payor: [employer] MEDICARE / Plan: [employer] MEDICARE PPO / Product Type: PPO / Care Gap Reviewed:: Colorectal Cancer Screening Reminder: Reminder note to check Health Maintenance for items below Health Maintenance items due: SPIROMETRY Never done URINE ALBUMIN:CREATININE RATIO due on 10/06/2020 COLORECTAL CANCER SCREENING due on 12/11/2020 ADVANCE DIRECTIVE DISCUSSION Never done DIABETIC FOOT EXAM due on 06/15/2021 Message Sent to Practice: No Navigation Signature: Ben Miranda June 12, 2021 8:51 AM documented in this encounter [facility] Work Phone: [phone] 278-391104-15-2022 Nurse Note* Michelle Hogue MINERAL SURVEYING TECHNICIAN - 05/24/2021 9:54 AM EDT REVIEW OF SYSTEMS: General: The patient denies fatigue, denies weight loss, denies weight gain, denies feeling hot, and denies feelings of cold. Eyes: The patient NOTES glaucoma, denies eye injury/surgery, wears glasses or contacts. Ear/Nose/Throat: The patient NOTES allergies, denies hayfever, denies ear infections, and denies bloody noses. Cardiovascular: The patient denies chest pain, denies heart disease, NOTES high blood pressure,denies cardiac stent, denies prior heart attack, denies irregular heart beat, NOTES high cholesterol, denies poor circulation, denies heart failure, other cardiac issues, denies claudication, denies cold feet, denies peripheral arterial stent. Respiratory: The patient denies tuberculosis, denies pneumonia, denies frequent cough, denies pulmonary embolism, denies shortness of breath, and denies coughing up blood. Gastrointestinal: The patient denies difficulty swallowing, denies acid reflux, denies ulcers, denies vomiting, denies jaundice/hepatitis, denies gallbladder problems, denies black or tarry stools, denies hemorrhoids, denies bleeding from rectum, denies diverticulitis, denies constipation, denies diarrhea, denies loss of stool control, and denies hernias. Kidney/Bladder: The patient denies kidney stones, denies urine infections, and denies bloody urine. Skin: The patient denies a history of skin cancer, denies bleeding/changing moles, and denies a history of skin rash. Neurologic: The patient denies a history of epilepsy/convulsions, denies headaches, denies head/spinal injuries, and denies stroke/TIA. Psychiatric: The patient psychiatric medications, denies depression, and denies voices, denies substance abuse. Endocrine: The patient denies thyroid disorders, NOTES diabetes, and denies hormonal problems. Hematologic: The patient denies a history of bruising, denies bleeding, and denies anemia, denies blood clots. Infections: The patient denies a history of measles and mumps, denies rheumatic fever, and denies sexually transmitted diseases. Musculoskeletal: The patient denies back pain/injury, notes back problems (stenosis), denies sciatica, denies knee/foot trouble, NOTES arthritis, or denies gout. When was patient's last Mammogram screening? October 2019, November 2020 per patient Last Colonoscopy: 2009 Michelle Hogue LPN [facility] History of Present illness Narrative* Natan Rankin MD - 05/24/2021 9:46 AM EDT HISTORY AND PHYSICAL Froy Sharma 1955 REFERRING PHYSICIAN: Stephanie Ladd APRN.* CHIEF COMPLAINT: Consult (Goiter) HPI: The patient is a 65 year old female with a complaint of a bilateral thyroid nodule. This thyroid nodule was found on Ultrasound by [facility]. The patient denies pain, notes occasional difficulty swallowing, deniesrapid enlargement of the neck, deniesdysphagia, denies a change in the voice, denies hot or cold intolerence. The patient has not a prior history of neck radiation treatment. TPO ANTIBODY <5.6 IU/mL <1.0 Free T4 0.9 - 1.7 ng/dL 1.0 T3 BLD Order: [id number] Status: Final result Visible to patient: Yes (seen) Dx: Goiter; Fatigue, unspecified type 0 Result Notes 1 Follow-up Encounter Component Ref Range & Units 2 wk ago T3 79 - 165 ng/dL 102 Resulting Agency CCM TSH 0.270 - 4.200 mIU/L 2.730 3.350 R 3.170 R 2.230 R 3.070 R 5.370 R 3.370 R The patient is being seen by me today at the request of Dr. Ladd for my opinion and advice regarding Multinodular goiter (primary encounter diagnosis). 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 Juarez High cholesterol Hypermobility syndrome Hypertension Insomnia Lumbar stenosis Dr. Juarez Malignant hyperthermia Myalgia and myositis, unspecified Other specified glaucoma Dr. Motta Psoriasis Dr. Phelan Right lumbar radiculitis Rotator cuff tear, left Trigeminal neuralgia PAST SURGICAL HISTORY Procedure Laterality Date BREAST LUMPECTOMY HX Left 11/2015, 01/2016 CATARACT EXTRACTION HX Bilateral 02/2018, 05/2018 COLONOSCOPY 05/22/2009 [facility] ENDOMETRIAL BIOPSY 05/24/2009 EXTRACTION, ERUPTED TOOTH OR EXPOSED ROOT (ELEVATION AND/OR FORCEPS REMOVAL) 1977 FUSION OF FINGER TENDONS 08/24/2017 4 fingers MASTECTOMY BRA Left 05/2015 MASTECTOMY HX Left 05/28/2015 reconstructed with gel implant MASTOPEXY Right 05/2015 and again Feb 2016 after implant completed NEUROPLASTY &/TRANSPOS MEDIAN NRV CARPAL TUNNE Right 2017 Carpal tunnel decomp NIPPLE/AREOLA RECONSTRUCTION Right 05/2016 PAST SURGICAL HISTORY OF laser surgery right eye to repair blood vessels PAST SURGICAL HISTORY OF several surgeries on feet PAST SURGICAL HISTORY OF 06/2009 Taking Tendon and Making Thumb Ligament (Right Wrist) PAST SURGICAL HISTORY OF 01/2010 Removal of Extra Tendon at Wrist (Right) PAST SURGICAL HISTORY OF Pisform bone right hand PAST SURGICAL HISTORY OF 1985,1987 wrist surgery bilateral PAST SURGICAL HISTORY OF 04/2014 slt on right eye PAST SURGICAL HISTORY OF Right 07/2016 Right trigger finger, [facility] PAST SURGICAL HISTORY OF 2009 D&C, polypectomy for postmenopausal bleeding PAST SURGICAL HISTORY OF 10/10/2020 thumb surgery on right hand at [facility] (fused the thumb) REPAIR FINGER TENDON 05/2012 right thumb TONSILLECTOMY PRIMARY/SECONDARY <AGE 12 Tonsillectomy Current Outpatient Medications Medication Sig Dispense Refill metFORMIN (GLUCOPHAGE) 500 mg tablet Take 1 tablet by mouth once daily. 20 tablet 0 metaxalone (SKELAXIN) 800 mg tablet Take 0.5-1 tablets by mouth three times daily as needed for pain (or muscle spasms). 90 tablet 1 gabapentin (NEURONTIN) 300 mg capsule Take 1 capsule by mouth twice daily for 180 days. 180 capsule1 tolterodine ER (DETROL LA) 4 mg 24 hr capsule TAKE 1 CAPSULE DAILY 90 capsule 3 meloxicam (MOBIC) 15 mg tablet TAKE 1 TABLET DAILY WITH FOOD FOR PAIN 90 tablet 0 atorvastatin (LIPITOR) 20 mg tablet Take 1 tablet by mouth once daily. 90 tablet 1 ibuprofen (ADVIL) 200 mg tablet Take 200 mg by mouth every 6 hours as needed. irbesartan (AVAPRO) 150 mg tablet Take 1 tablet by mouth daily at bedtime. 90 tablet 1 albuterol HFA (VENTOLIN HFA) 90 mcg/actuation inhaler Inhale 2 Puffs as instructed every 4 hours asneeded. 8 g 5 aspirin, enteric coated (ASPIRIN, ENTERIC COATED) 81 mg EC tablet aspirin Aspirin 81 MG PO DAILY September 23, 2018 Active 09-23-2018 [facility] ([id number]) cholecalciferol (VITAMIN D3) 1,000 unit tab tablet cholecalciferol Cholecalciferol (Vit D3) Active 1000 UNIT DAILY September 23, 2018 7:41pm 09-23-2018 [facility] ([id number]) latanoprost (XALATAN) 0.005 % ophthalmic solution Use 1 Drop in both eyes daily at bedtime. glucosamine/msm/chondroitin A (BPAPAHBFHLW-VJXRTT-IOR ORAL) montelukast (SINGULAIR) 10 mg tablet Take 1 tablet by mouth once daily. mometasone (NASONEX) 50 mcg/actuation nasal spray Use 2 Sprays in the nose once daily. cetirizine (ZYRTEC) 10 mg tablet Take 10 mg by mouth every other day. 0 THERAPEUTIC MULTIVITAMIN TAB Take one (1) tablet daily 0 metFORMIN (GLUCOPHAGE) 500 mg tablet Take 1 tablet by mouth once daily. 90 tablet 1 phenazopyridine (PYRIDIUM) 200 mg tablet Take 1 tablet by mouth three times daily as needed. (Patient not taking: Reported on 05/24/2021 ) 9 tablet 0 Current Facility-Administered Medications Medication Dose Route Frequency Provider Last Rate Last Admin perflutren lipid microspheres 1.3 mL in NaCl (PF) 0.9% 10 mL injection (DEFINITY) INTRAVENOUS DIRECTED PRN Hitesh Maria DO sodium chloride 0.9 % (flush) 10 mL (BD POSIFLUSH) 10 mL INTRAVENOUS DIRECTED PRN Hitesh Maria DO ALLERGIES: Olmesartan, Sulfamethoxazole-Trimethoprim, Altace [Ramipril], Amlodipine, Atenolol, Baclofen, Cats, Fenofibrate, Lyrica [Pregabalin], Pineapple, Ragweed, Remeron [Mirtazapine], Trazodone, Tricor [Fenofibrate Micronized], [place], Erythromycin, Serzone [Nefazodone Hcl], and Wellbutrin [Bupropion Hcl] PERSONAL HISTORY: Social History Tobacco Use Smoking status: Never Smoker Smokeless tobacco: Never Used Vaping Use Vaping Use: Never used Substance Use Topics Alcohol use: Not Currently Drug use: Never FAMILY HISTORY: FAMILY HISTORY Problem Relation Age of Onset Hypertension Mother Anesthesia Mother Stroke Mother Parkinson s Disease Mother Dementia Hypertension Father Blood Disease Father Mylofibrosis Diabetes Sister Heart Sister Myocardial Infarction/Triple Bypass Hypertension Sister other (DCIS) Sister grade 2 Diabetes Sister Cancer Sister melanoma Hypertension Sister Diabetes Maternal Grandmother Diabetes Maternal Grandfather Diabetes Paternal Grandmother Diabetes Paternal Grandfather Diabetes Maternal Aunt other (DCIS) Other REVIEW OF SYMPTOMS: The review of systems data was entered by the nurse and reviewed by nh Nursing Notes: Michelle Hogue LPN 05/24/2021 10:07 AM Signed REVIEW OF SYSTEMS: General: The patient denies fatigue, denies weight loss, denies weight gain, denies feeling hot, and denies feelings of cold. Eyes: The patient NOTES glaucoma, denies eye injury/surgery, wears glasses or contacts. Ear/Nose/Throat: The patient NOTES allergies, denies hayfever, denies ear infections, and denies bloody noses. Cardiovascular: The patient denies chest pain, denies heart disease, NOTES high blood pressure,denies cardiac stent, denies prior heart attack, denies irregular heart beat, NOTES high cholesterol, denies poor circulation, denies heart failure, other cardiac issues, denies claudication, denies cold feet, denies peripheral arterial stent. Respiratory: The patient denies tuberculosis, denies pneumonia, denies frequent cough, denies pulmonary embolism, denies shortness of breath, and denies coughing up blood. Gastrointestinal: The patient denies difficulty swallowing, denies acid reflux, denies ulcers, denies vomiting, denies jaundice/hepatitis, denies gallbladder problems, denies black or tarry stools, denies hemorrhoids, denies bleeding from rectum, denies diverticulitis, denies constipation, denies diarrhea, denies loss of stool control, and denies hernias. Kidney/Bladder: The patient denies kidney stones, denies urine infections, and denies bloody urine. Skin: The patient denies a history of skin cancer, denies bleeding/changing moles, and denies a history of skin rash. Neurologic: The patient denies a history of epilepsy/convulsions, denies headaches, denies head/spinal injuries, and denies stroke/TIA. Psychiatric: The patient psychiatric medications, denies depression, and denies voices, denies substance abuse. Endocrine: The patient denies thyroid disorders, NOTES diabetes, and denies hormonal problems. Hematologic: The patient denies a history of bruising, denies bleeding, and denies anemia, denies blood clots. Infections: The patient denies a history of measles and mumps, denies rheumatic fever, and denies sexually transmitted diseases. Musculoskeletal: The patient denies back pain/injury, notes back problems (stenosis), denies sciatica, denies knee/foot trouble, NOTES arthritis, or denies gout. When was patient's last Mammogram screening? October 2019, November 2020 per patient Last Colonoscopy: 2009 [facility] PHYSICAL EXAMINATION: General: The patient is 65 year old female, well nourished, well hydrated in no acute distress. Thepatient is oriented to time, place, and person. VITALS: Blood pressure 108/70, pulse 80, temperature 36.6 C (97.8 F), resp. rate 18, height 160 cm (5' 3 ), weight 63 kg (139 lb), last menstrual period 09/05/2005, SpO2 93 %. Body mass index is 24.62 kg/m . HEENT: Normal cephalic, ataumatic, pupils are equally round, sclera are anicteric, mucous membranesare moist, oropharynx is clear. Neck has no masses, asymmetry or lymphadenopathy. Thyroid exam no hard nodules are identified.. Respiratory: Clear to auscultation and percussion. Normal respiratory excursion and pattern. Cardiac: Examination is regular rate and rhythm. Abdominal exam: Soft, nontender, with no palpable masses. No hepatosplenomegaly. No palpable hernias. Rectal exam: exam deferred Extremities: no clubbing, cyanosis or edema. No adenopathy. Other: LABORATORY VALUES: As Noted RADIOLOGIC STUDIES: As Noted Assessment IMPRESSION: NODULE - bilateral THYROID PLAN: Given the overall size of these nodules no biopsies are needed at this time. She will need tohave yearly thyroid ultrasounds performed. If the nodules get larger than 1.5 cm no fine-needle aspirations will need to be performed. Diagnoses: (E04.2) Multinodular goiter (primary encounter diagnosis) My findings have been communicated to Dr. Ladd via shared medical record. This note will be forwarded to Dr. Hitesh Maria DO. Return to Clinic: The patient is instructed to follow-up with me as needed. Natan Rankin III, MD [facility] Miscellaneous Notes* Telephone Encounter - MANINDER Ridley - 05/17/2021 10:20 AM EDT Called Patient and schedule with Chucho for 05/24 * Telephone Encounter - Ce Gaspar LPN - 05/15/2021 11:[address] Rankin is [facility] provider here. Tried to reach pt line rings fast busy. Try later. Ce Gaspar LPN * Telephone Encounter - Stephanie Ladd APRN.CNP - 05/15/2021 7:38 AM EDT Order placed. Please fax to [facility] requesting Dr. Rankin. Stephanie Ldad APRN.MARCOS * Telephone Encounter - Marika Miranda - 05/14/2021 12:56 PM EDT Patient called, said Julee mentioned putting a referral in to see Chucho for a thyroid consult.Patient can be reached at [phone] Thank you Marika Miranda * Telephone Encounter - Magda Boland Ma - 05/08/2021 2:11 PM EDT Patient notified and verbalized understanding. Please assist with scheduling Magda Boland Ma * Telephone Encounter - Stephanie Ladd APRN.CNP - 05/08/2021 1:48 PM EDT Please let patient know that ultrasound of thyroid came back. It did show 3 decent sized nodules onthe thyroid. Since we do not have prior ultrasounds to compare to, I recommend a FNA to biopsy these and continue to monitor yearly with ultrasound. I put in general surgery referral for this -- OK with [facility] or [facility] such as Dr. Rankin. Let us know if we need to fax order. The rest of blood work looks great! Thyroid function is not effected by the nodules. Liver fucntion, kidney function, and vitamin and electrolyte levels are all normal. Cholesterol levels are very slightly elevated. I just recommend a healthy diet with routine exercise to help improve these values. Stephanie Ladd APRN.CNP documented in [facility] encounter[facility] Miscellaneous Notes* Telephone Encounter - Stephanie Ladd APRN.CNP - 05/08/2021 1:56 PM EDT Addressed in telephone encounter. Stephanie Ladd APRN.CNP documented in this encounter[facility] History of Present illness Narrative* Joellen Forrester RDMS - 05/07/2021 1:00 PM EDT Radiology Service Progress Note PATIENT NAME: Froy Sharma DATE OF SERVICE: May 07, 2021 TIME: 1:40 PM PATIENT IDENTITY VERIFICATION COMPLETED USING TWO (2) IDENTIFIERS: Name and Date of confirmedby patient verbally. FALL SCREENING: Has the patient had 2 falls in the last year or 1 fall with injury or currently using an Ambulatory Assistive Device (Walker, Cane, Wheelchair, Crutches, etc.)? No PATIENT GENDER DATA: Female. status: : No status: N/A PATIENT RELEVANT IMPLANT DATA REVIEWED: Not Applicable RADIOLOGY DEPARTMENT: Ultrasound PERIPHERAL IV DATA: Not applicable SIGNED BY: Joellen Forrester RDMS RVT May 07, 2021 1:40 PM documented in this encounterOhio[facility]03[facility]28-[facility]22 Instructions* Patient Instructions* Stephanie Ladd APRN.CNP - 05/06/2021 2:49 PM EDT Get blood work today. Schedule US for thyroid. documented in this encounterOhio[facility]03[facility]22 History of Present illness Narrative* Stephanie Ladd APRN.CNP - 05/06/2021 2:36 PM EDT Chief Complaint Patient presents with: Surgical Followup: was seen in urgent care for uti , they feel she has a goiter HPI Froy Sharma is a 65 year old female who presents here today for Above Complaints. Froy is an established patient of Dr. Maria. Froy is new to me today. Concerns today.. Follow-up from visit: UC on 05/03/21 d/t dysuria. Dx with UTI. Started on Macrobid x 7 days and pyridium prn. Today.. UTI symptoms have much improved. Some mild burning with urination still but improving. Urinary urgency is much improved. Just started antibiotic last night. Was not prescribed Macrobid until urine culture resulted so did not have it right off the bat. Gets UTI about twice a year. Very familiar withthese symptoms and how she improves. Goiter? When she went to yearly check-up at allergy doctor, doctor was concerned about goiter. Hand doctor also noticed the goiter and told her to follow-up with PCP. At visit on Thursday, KRISTA also suggestedgetting in to see PCP sooner than June when she was intially scheduled to see Dr. Maria. Does report gernalized fatigue --- unsure if any worse than baseline day-to-day tiredness. Denies constipation, diarrhea, weight gain or loss, abnormal intolerance to heat/cold (baseline intolerance to cold d/t raynaud), palpitations, muscle aches, or skin or hair changes. Sometimes does report getting food stuck when swallowing. Has noticed neck to be slightly swollen about 1-1.5 months ago but did not think anything of it. No known family hx of hypo- or hyper-thyroidism Last TSH: Component Latest Ref Rng & Units 10/01/2018 TSH 0.400 - 5.500 uU/mL 3.350 Past medical history, appointments, medications, allergies reviewed. 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 Juarez High cholesterol Hypermobility syndrome Hypertension Insomnia Lumbar stenosis Dr. Juarez Malignant hyperthermia Myalgia and myositis, unspecified Other specified glaucoma Dr. Motta Psoriasis Dr. Phelan Right lumbar radiculitis Rotator cuff tear, left Trigeminal neuralgia Previous Surgical History PAST SURGICAL HISTORY Procedure Laterality Date BREAST LUMPECTOMY HX Left 11/2015, 01/2016 CATARACT EXTRACTION HX Bilateral 02/2018, 05/2018 COLONOSCOPY 05/22/2009 [facility] ENDOMETRIAL BIOPSY 05/24/2009 EXTRACTION, ERUPTED TOOTH OR EXPOSED ROOT (ELEVATION AND/OR FORCEPS REMOVAL) 1977 FUSION OF FINGER TENDONS 08/24/2017 4 fingers MASTECTOMY BRA Left 05/2015 MASTECTOMY HX Left 05/28/2015 reconstructed with gel implant MASTOPEXY Right 05/2015 and again Feb 2016 after implant completed NEUROPLASTY &/TRANSPOS MEDIAN NRV CARPAL TUNNE Right 2017 Carpal tunnel decomp NIPPLE/AREOLA RECONSTRUCTION Right 05/2016 PAST SURGICAL HISTORY OF laser surgery right eye to repair blood vessels PAST SURGICAL HISTORY OF several surgeries on feet PAST SURGICAL HISTORY OF 06/2009 Taking Tendon and Making Thumb Ligament (Right Wrist) PAST SURGICAL HISTORY OF 01/2010 Removal of Extra Tendon at Wrist (Right) PAST SURGICAL HISTORY OF Pisform bone right hand PAST SURGICAL HISTORY OF 1985,1987 wrist surgery bilateral PAST SURGICAL HISTORY OF 04/2014 slt on right eye PAST SURGICAL HISTORY OF Right 07/2016 Right trigger finger, [facility] PAST SURGICAL HISTORY OF 2009 D&C, polypectomy for postmenopausal bleeding PAST SURGICAL HISTORY OF 10/10/2020 thumb surgery on right hand at [facility] (fused the thumb) REPAIR FINGER TENDON 05/2012 right thumb TONSILLECTOMY PRIMARY/SECONDARY <AGE 12 Tonsillectomy Family History FAMILY HISTORY Problem Relation Age of Onset Hypertension Father Blood Disease Father Mylofibrosis Hypertension Mother Anesthesia Mother Stroke Mother Parkinson s Disease Mother Dementia Diabetes Sister Heart Sister Myocardial Infarction/Triple Bypass Hypertension Sister other (DCIS) Sister grade 2 Diabetes Sister Cancer Sister melanoma Hypertension Sister Diabetes Maternal Grandmother Diabetes Maternal Grandfather Diabetes Paternal Grandmother Diabetes Paternal Grandfather Diabetes Maternal Aunt other (DCIS) Other Patient Allergies ALLERGIES Allergen Reactions Olmesartan Diarrhea Sulfamethoxazole-Tr* Swelling Tongue swelled. Altace [Ramipril] Swelling Swells up throat. Amlodipine Itching Atenolol Other: See Comments Extremely low pulse Baclofen Intolerance Headache 20 min after taking Cats Swelling irritates eyes,hand swelling Fenofibrate Other: See Comments Sore Muscles Lyrica [Pregabalin] Intolerance tongue swelling Pineapple Anaphylaxis throat swells Ragweed Swelling Remeron [Mirtazapin* Other: See Comments Hyperactive and desire to danielle into things Trazodone Other: See Comments Bad Headache Tricor [Fenofibrate* Intolerance muscle pain [place] Swelling Throat and mouth swelling Erythromycin Intolerance turns bright red all over Serzone [Nefazodone* Intolerance States it makes her grouchy Wellbutrin [Bupropi* Intolerance States medication makes her nervous Current Medications Current Outpatient Medications on File Prior to Visit Medication Sig nitrofurantoin monohydrate and macrocrystal (MACROBID) 100 mg capsule Take 1 capsule by mouth twicedaily with meals for 7 days. phenazopyridine (PYRIDIUM) 200 mg tablet Take 1 tablet by mouth three times daily as needed. metFORMIN (GLUCOPHAGE) 500 mg tablet Take 1 tablet by mouth once daily. metFORMIN (GLUCOPHAGE) 500 mg tablet Take 1 tablet by mouth once daily. metaxalone (SKELAXIN) 800 mg tablet Take 0.5-1 tablets by mouth three times daily as needed for pain (or muscle spasms). gabapentin (NEURONTIN) 300 mg capsule Take 1 capsule by mouth twice daily for 180 days. tolterodine ER (DETROL LA) 4 mg 24 hr capsule TAKE 1 CAPSULE DAILY meloxicam (MOBIC) 15 mg tablet TAKE 1 TABLET DAILY WITH FOOD FOR PAIN atorvastatin (LIPITOR) 20 mg tablet Take 1 tablet by mouth once daily. ibuprofen (ADVIL) 200 mg tablet Take 200 mg by mouth every 6 hours as needed. albuterol HFA (VENTOLIN HFA) 90 mcg/actuation inhaler Inhale 2 Puffs as instructed every 4 hours asneeded. aspirin, enteric coated (ASPIRIN, ENTERIC COATED) 81 mg EC tablet aspirin Aspirin 81 MG PO DAILY September 23, 2018 Active 09-23-2018 [facility] ([id number]) cholecalciferol (VITAMIN D3) 1,000 unit tab tablet cholecalciferol Cholecalciferol (Vit D3) Active 1000 UNIT DAILY September 23, 2018 7:41pm 09-23-2018 [facility] [facility] ([id number]) latanoprost (XALATAN) 0.005 % ophthalmic solution Use 1 Drop in both eyes daily at bedtime. glucosamine/msm/chondroitin A (RXQHFOSUMWR-QXFORX-RVU ORAL) montelukast (SINGULAIR) 10 mg tablet Take 1 tablet by mouth once daily. mometasone (NASONEX) 50 mcg/actuation nasal spray Use 2 Sprays in the nose once daily. cetirizine (ZYRTEC) 10 mg tablet Take 10 mg by mouth every other day. THERAPEUTIC MULTIVITAMIN TAB Take one (1) tablet daily NIFEdipine ER (PROCARDIA XL) 30 mg 24 hr tablet Take 1 tablet by mouth once daily. amLODIPine (NORVASC) 5 mg tablet Take 1 tablet by mouth once daily. (Patient not taking: Reported on 05/06/2021 ) irbesartan (AVAPRO) 150 mg tablet Take 1 tablet by mouth daily at bedtime. tiZANidine (ZANAFLEX) 2 mg tablet Take 1-2 tablets by mouth every 8 hours as needed. Current Facility-Administered Medications on File Prior to Visit Medication perflutren lipid microspheres 1.3 mL in NaCl (PF) 0.9% 10 mL injection (DEFINITY) sodium chloride 0.9 % (flush) 10 mL (BD POSIFLUSH) Social History Social History Tobacco Use Smoking status: Never Smoker Smokeless tobacco: Never Used Vaping Use Vaping Use: Never used Substance Use Topics Alcohol use: Not Currently Drug use: No REVIEW OF SYSTEMS: as above Reviewed relevant PMHx, PSHx, Social Hx, current medications and allergies. Review of Symptoms See HPI. All other systems are negative. EXAM: BP 118/62 (BP Site: Left Arm, BP Position: Sitting, BP Cuff Size: Regular Adult) Pulse 72 Resp 16 Wt 62.7 kg (138 lb 3.2 oz) LMP 09/05/2005 BMI 24.48 kg/m General Appearance: Well appearing, alert, in no acute distress, well-hydrated, well nourished.. Skin: Skin color, texture, turgor normal, no suspicious rashes or lesions. Neck: Supple, no adenopathy; thyroid symmetric, normal size, no bruits, Positive findings: thyroid:enlarged. Back:no pain to palpation of vertebrae, good flexion and extension, good range of motion, no muscletenderness, reflexes are 2+ and symmetric, motor and sensory appear to be normal, negative SLR test, no evidence of scoliosis Lungs: Lungs clear to auscultation. No wheezing, rhonchi, rales.. Heart: RRR without murmur, gallop, or rubs. No ectopy. Extremities: No deformities, edema, skin discoloration, clubbing or cyanosis. Good capillary refill. . Musculoskeletal: No joint swelling, deformity, or tenderness. Peripheral Pulses: Normal. Neurologic: Gait normal. Reflexes normal and symmetric. Sensation grossly intact.. Health Maintenance List SPIROMETRY Never done URINE ALBUMIN:CREATININE RATIO due on 10/06/2020 HBA1C due on 10/11/2020 COLORECTAL CANCER SCREENING due on 12/11/2020 ADVANCE DIRECTIVE DISCUSSION Never done LDL CHOLESTEROL due on 04/10/2021 DIABETIC FOOT EXAM due on 06/15/2021 MAMMOGRAM due on 11/22/2021 DILATED RETINAL EXAM due on 01/24/2022 DEPRESSION SCREENING due on 02/04/2022 ANNUAL PCP TEAM CHRONIC DISEASE VISIT due on 02/20/2022 BP CONTROLLED (<130/80) due on 05/03/2022 DTAP,TDAP,TD(10 - Td or Tdap) due on 02/19/2028 BONE DENSITY Completed INFLUENZA Completed HEPATITIS C SCREENING Completed PNEUMOVAX AGE 65 AND OVER WITH 5YR LOOKBACK Completed HIV SCREENING Completed SHINGRIX VACCINE Completed COVID-19 VACCINE Completed MENINGOCOCCAL CONJUGATE Aged Out ASSESSMENT/PLAN: 1. Goiter - ICD9: 240.9, ICD10: E04.9 (primary diagnosis) Concern for goiter. Thyroid enlarged on PE. Thyroid blood work and US. Symptoms of difficulty swallowing and fatigue. - TSH BLD - T3 BLD - T4 FREE/FREE THYROX - THYROID PEROXIDASE ANTIBODY BLOOD - US THYROID/PARATHYROID - CBC - COMP METABOLIC PANEL - HGB A1C - LIPID PANEL, NONFASTING - VITAMIN D 25 HYDROXY - IRON + TIBC - FERRITIN BLD 2. Fatigue, unspecified type - ICD9: 780.79, ICD10: R53.83 Rule out alternative causes of fatigue. - TSH BLD - T3 BLD - T4 FREE/FREE THYROX - THYROID PEROXIDASE ANTIBODY BLOOD - CBC - COMP METABOLIC PANEL - HGB A1C - LIPID PANEL, NONFASTING - VITAMIN D 25 HYDROXY - IRON + TIBC - FERRITIN BLD - VITAMIN B12 BLOOD 3. Dysphagia, unspecified type - ICD9: 787.20, ICD10: R13.10 See above. 4. Recurrent UTI (urinary tract infection) - ICD9: 599.0, ICD10: N39.0 Improving. - Continue treatment with Macrobid and pyridium. - Patient education for prevention given 5. Dyslipidemia - ICD9: 272.4, ICD10: E78.5 - to be determined upon return of lab results - Continue current medication. - Encouraged following a low fat, low cholesterol diet. - Discussed the benefits of regular aerobic exercise and weight loss. - LIPID PANEL, NONFASTING 6. Type 2 diabetes mellitus without complication, without long-term current use of insulin (HCC) - ICD9: 250.00, ICD10: E11.9 Previously controlled. Will determine based on blood work. - Continue current medications - Encouraged regular aerobic exercise and weight loss - Daily Asprin therapy recommended - Discussed diabetic education issues of medications- side effects and need for compliance, importance of exercise, importance of appointments with Fuel Conversion Technician and importance of annual examinations with Opthalmology with patient. - METFORMIN 500 MG TABLET --- refilled. RTO as needed. Prescription instructions reviewed with patient as applicable. Potential red flag symptoms discussed with the patient. Reviewed appropriate action plan to take if red flag symptoms occur. Patient agreeable to treatment plan. Stephanie Ladd APRN.CNP [address] [place] [address] documented in this encounterOhio[facility] Miscellaneous Notes* Telephone Encounter - Kimber Tello APRN.CNP - 05/05/2021 12:11 PM EDT Patient identified by name and date of . Advised urine culture did show bacterial growth. Macrobid sent to her pharmacy. Kimber Tello APRN.CNP documented in this encounterOhio[facility]03-25-[facility]22 History of Present illness Narrative* Julia Castillo PA-C - 05/03/2021 4:02 PM EDT This note was created using [employer]. Subjective Froy Sharma is a 65 year old female. HPI Patient presents with urinary urgency and dysuria over the past 3 days. No fever. No back pain. No abdominal pain. No vomiting or diarrhea. Denies vaginal itching or discharge. She was out of her Metformin until a few days ago as well. She does not check her blood sugar at home. Denies symptoms of a yeast infection. Review of Systems Constitutional: Negative. HENT: Negative. Gastrointestinal: Negative. Genitourinary: Positive for dysuria, frequency and urgency. Negative for hematuria, vaginal discharge and vaginal pain. Musculoskeletal: Negative for back pain. All other systems reviewed and are negative. 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 Juarez High cholesterol Hypermobility syndrome Hypertension Insomnia Lumbar stenosis Dr. Juarez Malignant hyperthermia Myalgia and myositis, unspecified Other specified glaucoma Dr. Motta Psoriasis Dr. Phelan Right lumbar radiculitis Rotator cuff tear, left Trigeminal neuralgia Current Outpatient Medications Medication Sig Dispense Refill metFORMIN (GLUCOPHAGE) 500 mg tablet Take 1 tablet by mouth once daily. 20 tablet 0 metaxalone (SKELAXIN) 800 mg tablet Take 0.5-1 tablets by mouth three times daily as needed for pain (or muscle spasms). 90 tablet 1 gabapentin (NEURONTIN) 300 mg capsule Take 1 capsule by mouth twice daily for 180 days. 180 capsule1 tolterodine ER (DETROL LA) 4 mg 24 hr capsule TAKE 1 CAPSULE DAILY 90 capsule 3 meloxicam (MOBIC) 15 mg tablet TAKE 1 TABLET DAILY WITH FOOD FOR PAIN 90 tablet 0 amLODIPine (NORVASC) 5 mg tablet Take 1 tablet by mouth once daily. 30 tablet 1 atorvastatin (LIPITOR) 20 mg tablet Take 1 tablet by mouth once daily. 90 tablet 1 ibuprofen (ADVIL) 200 mg tablet Take 200 mg by mouth every 6 hours as needed. albuterol HFA (VENTOLIN HFA) 90 mcg/actuation inhaler Inhale 2 Puffs as instructed every 4 hours asneeded. 8 g 5 aspirin, enteric coated (ASPIRIN, ENTERIC COATED) 81 mg EC tablet aspirin Aspirin 81 MG PO DAILY September 23, 2018 Active 09-23-2018 [facility] ([id number]) cholecalciferol (VITAMIN D3) 1,000 unit tab tablet cholecalciferol Cholecalciferol (Vit D3) Active 1000 UNIT DAILY September 23, 2018 7:41pm 09-23-2018 [facility] ([id number]) latanoprost (XALATAN) 0.005 % ophthalmic solution Use 1 Drop in both eyes daily at bedtime. glucosamine/msm/chondroitin A (FUPGBTJKZOI-SKJWQM-BXV ORAL) montelukast (SINGULAIR) 10 mg tablet Take 1 tablet by mouth once daily. mometasone (NASONEX) 50 mcg/actuation nasal spray Use 2 Sprays in the nose once daily. cetirizine (ZYRTEC) 10 mg tablet Take 10 mg by mouth every other day. 0 THERAPEUTIC MULTIVITAMIN TAB Take one (1) tablet daily 0 phenazopyridine (PYRIDIUM) 200 mg tablet Take 1 tablet by mouth three times daily as needed. 9 tablet 0 metFORMIN (GLUCOPHAGE) 500 mg tablet Take 1 tablet by mouth once daily. 90 tablet 1 NIFEdipine ER (PROCARDIA XL) 30 mg 24 hr tablet Take 1 tablet by mouth once daily. 30 tablet 3 irbesartan (AVAPRO) 150 mg tablet Take 1 tablet by mouth daily at bedtime. 90 tablet 1 tiZANidine (ZANAFLEX) 2 mg tablet Take 1-2 tablets by mouth every 8 hours as needed. 60 tablet 0 Current Facility-Administered Medications Medication Dose Route Frequency Provider Last Rate Last Admin perflutren lipid microspheres 1.3 mL in NaCl (PF) 0.9% 10 mL injection (DEFINITY) INTRAVENOUS DIRECTED PRN Hitesh Maria DO sodium chloride 0.9 % (flush) 10 mL (BD POSIFLUSH) 10 mL INTRAVENOUS DIRECTED PRN Hitesh Maria, PAST SURGICAL HISTORY Procedure Laterality Date BREAST LUMPECTOMY HX Left 11/2015, 01/2016 CATARACT EXTRACTION HX Bilateral 02/2018, 05/2018 COLONOSCOPY 05/22/2009 [facility] ENDOMETRIAL BIOPSY 05/24/2009 EXTRACTION, ERUPTED TOOTH OR EXPOSED ROOT (ELEVATION AND/OR FORCEPS REMOVAL) 1977 FUSION OF FINGER TENDONS 08/24/2017 4 fingers MASTECTOMY BRA Left 05/2015 MASTECTOMY HX Left 05/28/2015 reconstructed with gel implant MASTOPEXY Right 05/2015 and again Feb 2016 after implant completed NEUROPLASTY &/TRANSPOS MEDIAN NRV CARPAL TUNNE Right 2017 Carpal tunnel decomp NIPPLE/AREOLA RECONSTRUCTION Right 05/2016 PAST SURGICAL HISTORY OF laser surgery right eye to repair blood vessels PAST SURGICAL HISTORY OF several surgeries on feet PAST SURGICAL HISTORY OF 06/2009 Taking Tendon and Making Thumb Ligament (Right Wrist) PAST SURGICAL HISTORY OF 01/2010 Removal of Extra Tendon at Wrist (Right) PAST SURGICAL HISTORY OF Pisform bone right hand PAST SURGICAL HISTORY OF 1985,1987 wrist surgery bilateral PAST SURGICAL HISTORY OF 04/2014 slt on right eye PAST SURGICAL HISTORY OF Right 07/2016 Right trigger finger, [facility] PAST SURGICAL HISTORY OF 2009 D&C, polypectomy for postmenopausal bleeding PAST SURGICAL HISTORY OF 10/10/2020 thumb surgery on right hand at [facility] (fused the thumb) REPAIR FINGER TENDON 05/2012 right thumb TONSILLECTOMY PRIMARY/SECONDARY <AGE 12 Tonsillectomy FAMILY HISTORY Problem Relation Age of Onset Hypertension Father Blood Disease Father Mylofibrosis Hypertension Mother Anesthesia Mother Stroke Mother Parkinson s Disease Mother Dementia Diabetes Sister Heart Sister Myocardial Infarction/Triple Bypass Hypertension Sister other (DCIS) Sister grade 2 Diabetes Sister Cancer Sister melanoma Hypertension Sister Diabetes Maternal Grandmother Diabetes Maternal Grandfather Diabetes Paternal Grandmother Diabetes Paternal Grandfather Diabetes Maternal Aunt other (DCIS) Other Social History Tobacco Use Smoking status: Never Smoker Smokeless tobacco: Never Used Vaping Use Vaping Use: Never used Substance Use Topics Alcohol use: Not Currently Drug use: No Objective BP 126/74 Pulse 71 Temp 36.6 C (97.9 F) (Temporal) Resp 18 Wt 63.9 kg (140 lb 12.8 oz) LMP 09/05/2005 SpO2 99% BMI 24.94 kg/m Physical Exam Vitals reviewed. Constitutional: Appearance: Normal appearance. HENT: Head: Normocephalic and atraumatic. Neck: Comments: Probable goiter Cardiovascular: Rate and Rhythm: Normal rate and regular rhythm. Heart sounds: Normal heart sounds. Pulmonary: Effort: Pulmonary effort is normal. Breath sounds: Normal breath sounds. Musculoskeletal: Cervical back: Neck supple. Skin: General: Skin is warm and dry. Findings: No rash. Neurological: General: No focal deficit present. Mental Status: She is alert and oriented to person, place, and time. Assessment and Plan ASSESSMENT/PLAN: 1. Dysuria - ICD9: 788.1, ICD10: R30.0 Urine only positive for trace blood. Otherwise negative. I will start her on Pyridium and send urine for culture. Her last 2 urine cultures were negative for infection so we will wait to treat based on culture. Follow-up with PCP. - UA DIP, URINE (POC) - URINE CULTURE Julia Castillo PA-C documented in this encounterOhio[facility]12-30-2021 History of Present illness Narrative* Diego Riley, RT(R) - 02/07/2021 9:30 AM EST Radiology Service Progress Note PATIENT NAME: Froy Sharma DATE OF SERVICE: February 07, 2021 TIME: 9:34 AM PATIENT IDENTITY VERIFICATION COMPLETED USING TWO (2) IDENTIFIERS: Name and Date of confirmedby patient verbally. FALL SCREENING: Has the patient had 2 falls in the last year or 1 fall with injury or currently using an Ambulatory Assistive Device (Walker, Cane, Wheelchair, Crutches, etc.)? No PATIENT GENDER DATA: Female. status: : No status: NO. PATIENT RELEVANT IMPLANT DATA REVIEWED: Not Applicable RADIOLOGY DEPARTMENT: General X-ray: Exam(s) Completed: Spine X-Ray(s): Lumbar AP / LAT / L5-S1 No L5-S1 ordered PERIPHERAL IV DATA: Not applicable SIGNED BY: RT Mylene(R) February 07, 2021 9:34 AM documented in this encounterOhio[facility]12-21-2018 History of Past illness Narrative* Problem Noted Date Resolved Date Neck pain, chronic 01/29/2018 08/18/2018 Overview: Added automatically from request for surgery [id number] Neck pain on left side 01/08/2018 9 Radiculopathy, lumbar region 12/01/201711/2019 Tear of medial meniscus of right knee, subsequen t encounter 08/20/2017 08/18/2018 Muscle weakness 12/22/2016 08/18/2018 Closed dislocation of hip, unspecified site 08/201411/30/2014 Other joint derangement, not elsewhere classified, unspecified site 09/15/2014 11/30/2014 Mammographic microcalcificat ion found on diagnostic imaging of breast 09/13/2014 02/18/2019 Lumbago 01/17/2013 02/18/2019 Pain in joint, pelvic region and thigh 1 11/30/2014 NEVUS///BENIGN ANGELLA SKIN FACE NEC 12/18/2006 08/18/2018 NEVUS BACK/ABD.//BENIGN ANGELLA SKIN TRUNK 7 08/18/2018 Synovitis and tenosynovitis in diseases classifi ed elsewhere 06/27/2005 02/18/2019 Mitral valve disorders(424.0) Type II or unspecified type diabetes mellitus without mention of complication, uncontrolled 05/20/2009 Myalgia and myositis, unspecified 06/24/2013 Generalized osteoarthrosis, unspecified site 08/18/2018 documented as of this encounter (statuses as of 05/03/2021) [facility] History of Past illness Narrative* Problem Noted Date Resolved Date Neck pain, chronic 01/29/2018 08/18/2018 Overview: Added automatically from request for surgery [id number] Neck pain on left side 01/08/2018 9 Radiculopathy, lumbar region 12/01/201711/2019 Tear of medial meniscus of right knee, subsequen t encounter 08/20/2017 08/18/2018 Muscle weakness 12/22/2016 08/18/2018 Closed dislocation of hip, unspecified site 0808/201411/30/2014 Other joint derangement, not elsewhere classified, unspecified site 09/15/2014 11/30/2014 Mammographic microcalcificat ion found on diagnostic imaging of breast 09/13/2014 02/18/2019 Lumbago 01/17/2013 02/18/2019 Pain in joint, pelvic region and thigh 1 11/30/2014 NEVUS///BENIGN ANGELLA SKIN FACE NEC 12/18/2006 08/18/2018 NEVUS BACK/ABD.//BENIGN ANGELLA SKIN TRUNK 7 08/18/2018 Synovitis and tenosynovitis in diseases classifi ed elsewhere 06/27/2005 02/18/2019 Mitral valve disorders(424.0) Type II or unspecified type diabetes mellitus without mention of complication, uncontrolled 05/20/2009 Myalgia and myositis, unspecified 06/24/2013 Generalized osteoarthrosis, unspecified site 08/18/2018 documented as of this encounter (statuses as of 05/05/2021) [facility] of Past illness Narrative* Problem Noted Date Resolved Date Neck pain, chronic 01/29/2018 08/18/2018 Overview: Added automatically from request for surgery [id number] Neck pain on left side 01/08/2018 9 Radiculopathy, lumbar region 12/01/201711/2019 Tear of medial meniscus of right knee, subsequen t encounter 08/20/2017 08/18/2018 Muscle weakness 12/22/2016 08/18/2018 Closed dislocation of hip, unspecified site 08/0 08/201411/30/2014 Other joint derangement, not elsewhere classified, unspecified site 09/15/2014 11/30/2014 Mammographic microcalcificat ion found on diagnostic imaging of breast 09/13/2014 02/18/2019 Lumbago 01/17/2013 02/18/2019 Pain in joint, pelvic region and thigh 1 11/30/2014 NEVUS///BENIGN ANGELLA SKIN FACE NEC 12/18/2006 08/18/2018 NEVUS BACK/ABD.//BENIGN ANGELLA SKIN TRUNK 7 08/18/2018 Synovitis and tenosynovitis in diseases classifi ed elsewhere 06/27/2005 02/18/2019 Mitral valve disorders(424.0) Type II or unspecified type diabetes mellitus without mention of complication, uncontrolled 05/20/2009 Myalgia and myositis, unspecified 06/24/2013 Generalized osteoarthrosis, unspecified site 08/18/2018 documented as of this encounter (statuses as of 05/06/2021) [facility] of Past illness Narrative* Problem Noted Date Resolved Date Neck pain, chronic 01/29/2018 08/18/2018 Overview: Added automatically from request for surgery [id number] Neck pain on left side 01/08/2018 9 Radiculopathy, lumbar region 12/01/201711/2019 Tear of medial meniscus of right knee, subsequen t encounter 08/20/2017 08/18/2018 Muscle weakness 12/22/2016 08/18/2018 Closed dislocation of hip, unspecified site 08/0 08/201411/30/2014 Other joint derangement, not elsewhere classified, unspecified site 09/15/2014 11/30/2014 Mammographic microcalcificat ion found on diagnostic imaging of breast 09/13/2014 02/18/2019 Lumbago 01/17/2013 02/18/2019 Pain in joint, pelvic region and thigh 1 11/30/2014 NEVUS///BENIGN ANGELLA SKIN FACE NEC 12/18/2006 08/18/2018 NEVUS BACK/ABD.//BENIGN ANGELLA SKIN TRUNK 7 08/18/2018 Synovitis and tenosynovitis in diseases classifi ed elsewhere 06/27/2005 02/18/2019 Mitral valve disorders(424.0) Type II or unspecified type diabetes mellitus without mention of complication, uncontrolled 05/20/2009 Myalgia and myositis, unspecified 06/24/2013 Generalized osteoarthrosis, unspecified site 08/18/2018 documented as of this encounter (statuses as of 05/08/2021) [facility] of Past illness Narrative* Problem Noted Date Resolved Date Neck pain, chronic 01/29/2018 08/18/2018 Overview: Added automatically from request for surgery [id number] Neck pain on left side 01/08/2018 9 Radiculopathy, lumbar region 12/01/201711/2019 Tear of medial meniscus of right knee, subsequen t encounter 08/20/2017 08/18/2018 Muscle weakness 12/22/2016 08/18/2018 Closed dislocation of hip, unspecified site 08/08/201411/30/2014 Other joint derangement, not elsewhere classified, unspecified site 09/15/2014 11/30/2014 Mammographic microcalcificat ion found on diagnostic imaging of breast 09/13/2014 02/18/2019 Lumbago 01/17/2013 02/18/2019 Pain in joint, pelvic region and thigh 1 11/30/2014 NEVUS///BENIGN ANGELLA SKIN FACE NEC 12/18/2006 08/18/2018 NEVUS BACK/ABD.//BENIGN ANGELLA SKIN TRUNK 7 08/18/2018 Synovitis and tenosynovitis in diseases classifi ed elsewhere 06/27/2005 02/18/2019 Mitral valve disorders(424.0) Type II or unspecified type diabetes mellitus without mention of complication, uncontrolled 05/20/2009 Myalgia and myositis, unspecified 06/24/2013 Generalized osteoarthrosis, unspecified site 08/18/2018 documented as of this encounter (statuses as of 05/08/2021) [facility] of [facility] illness Narrative* Problem Noted Date Resolved Date Neck pain, chronic 01/29/2018 08/18/2018 Overview: Added automatically from request for surgery [id number] Neck pain on left side 01/08/2018 9 Radiculopathy, lumbar region 12/01/201711/2019 Tear of medial meniscus of right knee, subsequen t encounter 08/20/2017 08/18/2018 Muscle weakness 12/22/2016 08/18/2018 Closed dislocation of hip, unspecified site 0808/201411/30/2014 Other joint derangement, not elsewhere classified, unspecified site 09/15/2014 11/30/2014 Mammographic microcalcificat ion found on diagnostic imaging of breast 09/13/2014 02/18/2019 Lumbago 01/17/2013 02/18/2019 Pain in joint, pelvic region and thigh 1 11/30/2014 NEVUS///BENIGN ANGELLA SKIN FACE NEC 12/18/2006 08/18/2018 NEVUS BACK/ABD.//BENIGN ANGELLA SKIN TRUNK 7 08/18/2018 Synovitis and tenosynovitis in diseases classifi ed elsewhere 06/27/2005 02/18/2019 Mitral valve disorders(424.0) Type II or unspecified type diabetes mellitus without mention of complication, uncontrolled 05/20/2009 Myalgia and myositis, unspecified 06/24/2013 Generalized osteoarthrosis, unspecified site 08/18/2018 documented as of this encounter (statuses as of 05/15/2021) [facility] illness Narrative* Problem Noted Date Resolved Date Neck pain, chronic 01/29/2018 08/18/2018 Overview: Added automatically from request for surgery [id number] Neck pain on left side 01/08/2018 9 Radiculopathy, lumbar region 12/01/201711/2019 Tear of medial meniscus of right knee, subsequen t encounter 08/20/2017 08/18/2018 Muscle weakness 12/22/2016 08/18/2018 Closed dislocation of hip, unspecified site 08/0 08/201411/30/2014 Other joint derangement, not elsewhere classified, unspecified site 09/15/2014 11/30/2014 Mammographic microcalcificat ion found on diagnostic imaging of breast 09/13/2014 02/18/2019 Lumbago 01/17/2013 02/18/2019 Pain in joint, pelvic region and thigh 1 11/30/2014 NEVUS///BENIGN ANGELLA SKIN FACE NEC 12/18/2006 08/18/2018 NEVUS BACK/ABD.//BENIGN ANGELLA SKIN TRUNK 7 08/18/2018 Synovitis and tenosynovitis in diseases classifi ed elsewhere 06/27/2005 02/18/2019 Mitral valve disorders(424.0) Type II or unspecified type diabetes mellitus without mention of complication, uncontrolled 05/20/2009 Myalgia and myositis, unspecified 06/24/2013 Generalized osteoarthrosis, unspecified site 08/18/2018 documented as of this encounter (statuses as of 05/17/2021) [facility] Narrative* Problem Noted Date Resolved Date Neck pain, chronic 01/29/2018 08/18/2018 Overview: Added automatically from request for surgery [id number] Neck pain on left side 01/08/2018 9 Radiculopathy, lumbar region 12/01/201711/2019 Tear of medial meniscus of right knee, subsequen t encounter 08/20/2017 08/18/2018 Muscle weakness 12/22/2016 08/18/2018 Closed dislocation of hip, unspecified site 080 08/201411/30/2014 Other joint derangement, not elsewhere classified, unspecified site 09/15/2014 11/30/2014 Mammographic microcalcificat ion found on diagnostic imaging of breast 09/13/2014 02/18/2019 Lumbago 01/17/2013 02/18/2019 Pain in joint, pelvic region and thigh 1 11/30/2014 NEVUS///BENIGN ANGELLA SKIN FACE NEC 12/18/2006 08/18/2018 NEVUS BACK/ABD.//BENIGN ANGELLA SKIN TRUNK 7 08/18/2018 Synovitis and tenosynovitis in diseases classifi ed elsewhere 06/27/2005 02/18/2019 Mitral valve disorders(424.0) Type II or unspecified type diabetes mellitus without mention of complication, uncontrolled 05/20/2009 Myalgia and myositis, unspecified 06/24/2013 Generalized osteoarthrosis, unspecified site 08/18/2018 documented as of this encounter (statuses as of 05/24/2021) [facility] illness Narrative* Problem Noted Date Resolved Date Neck pain, chronic 01/29/2018 08/18/2018 Overview: Added automatically from request for surgery [id number] Neck pain on left side 01/08/2018 9 Radiculopathy, lumbar region 12/01/201711/2019 Tear of medial meniscus of right knee, subsequen t encounter 08/20/2017 08/18/2018 Muscle weakness 12/22/2016 08/18/2018 Closed dislocation of hip, unspecified site 08/201411/30/2014 Other joint derangement, not elsewhere classified, unspecified site 09/15/2014 11/30/2014 Mammographic microcalcificat ion found on diagnostic imaging of breast 09/13/2014 02/18/2019 Lumbago 01/17/2013 02/18/2019 Pain in joint, pelvic region and thigh 1 11/30/2014 NEVUS///BENIGN ANGELLA SKIN FACE NEC 12/18/2006 08/18/2018 NEVUS BACK/ABD.//BENIGN ANGELLA SKIN TRUNK 7 08/18/2018 Synovitis and tenosynovitis in diseases classifi ed elsewhere 06/27/2005 02/18/2019 Mitral valve disorders(424.0) Type II or unspecified type diabetes mellitus without mention of complication, uncontrolled 05/20/2009 Myalgia and myositis, unspecified 06/24/2013 Generalized osteoarthrosis, unspecified site 08/18/2018 documented as of this encounter (statuses as of 06/12/2021) [facility]12-21[facility]2018 History of Past illness Narrative* Problem Noted Date Resolved Date Neck pain, chronic 01/29/2018 08/18/2018 Overview: Added automatically from request for surgery [id number] Neck pain on left side 01/08/2018 9 Radiculopathy, lumbar region 12/01/201711/2019 Tear of medial meniscus of right knee, subsequen t encounter 08/20/2017 08/18/2018 Muscle weakness 12/22/2016 08/18/2018 Closed dislocation of hip, unspecified site 08/201411/30/2014 Other joint derangement, not elsewhere classified, unspecified site 09/15/2014 11/30/2014 Mammographic microcalcificat ion found on diagnostic imaging of breast 09/13/2014 02/18/2019 Lumbago 01/17/2013 02/18/2019 Pain in joint, pelvic region and thigh 1 11/30/2014 NEVUS///BENIGN ANGELLA SKIN FACE NEC 12/18/2006 08/18/2018 NEVUS BACK/ABD.//BENIGN ANGELLA SKIN TRUNK 7 08/18/2018 Synovitis and tenosynovitis in diseases classifi ed elsewhere 06/27/2005 02/18/2019 Mitral valve disorders(424.0) Type II or unspecified type diabetes mellitus without mention of complication, uncontrolled 05/20/2009 Myalgia and myositis, unspecified 06/24/2013 Generalized osteoarthrosis, unspecified site 08/18/2018 documented as of this encounter (statuses as of 07/05/2021) [facility]12[facility]2018 History of Past illness Narrative* Problem Noted Date Resolved Date Neck pain, chronic 01/29/2018 08/18/2018 Overview: Added automatically from request for surgery [id number] Neck pain on left side 01/08/2018 9 Radiculopathy, lumbar region 12/01/201711/2019 Tear of medial meniscus of right knee, subsequen t encounter 08/20/2017 08/18/2018 Muscle weakness 12/22/2016 08/18/2018 Closed dislocation of hip, unspecified site 08/0 08/201411/30/2014 Other joint derangement, not elsewhere classified, unspecified site 09/15/2014 11/30/2014 Mammographic microcalcificat ion found on diagnostic imaging of breast 09/13/2014 02/18/2019 Lumbago 01/17/2013 02/18/2019 Pain in joint, pelvic region and thigh 1 11/30/2014 NEVUS///BENIGN ANGELLA SKIN FACE NEC 12/18/2006 08/18/2018 NEVUS BACK/ABD.//BENIGN ANGELLA SKIN TRUNK 7 08/18/2018 Synovitis and tenosynovitis in diseases classifi ed elsewhere 06/27/2005 02/18/2019 Mitral valve disorders(424.0) Type II or unspecified type diabetes mellitus without mention of complication, uncontrolled 05/20/2009 Myalgia and myositis, unspecified 06/24/2013 Generalized osteoarthrosis, unspecified site 08/18/2018 documented as of this encounter (statuses as of 08/08/2021) [facility]12[facility]2018 History of Past illness Narrative* Problem Noted Date Resolved Date Neck pain, chronic 01/29/2018 08/18/2018 Overview: Added automatically from request for surgery [id number] Neck pain on left side 01/08/2018 9 Radiculopathy, lumbar region 12/01/201711/2019 Tear of medial meniscus of right knee, subsequen t encounter 08/20/2017 08/18/2018 Muscle weakness 12/22/2016 08/18/2018 Closed dislocation of hip, unspecified site 08/0 08/201411/30/2014 Other joint derangement, not elsewhere classified, unspecified site 09/15/2014 11/30/2014 Mammographic microcalcificat ion found on diagnostic imaging of breast 09/13/2014 02/18/2019 Lumbago 01/17/2013 02/18/2019 Pain in joint, pelvic region and thigh 1 11/30/2014 NEVUS///BENIGN ANGELLA SKIN FACE NEC 12/18/2006 08/18/2018 NEVUS BACK/ABD.//BENIGN ANGELLA SKIN TRUNK 7 08/18/2018 Synovitis and tenosynovitis in diseases classifi ed elsewhere 06/27/2005 02/18/2019 Mitral valve disorders(424.0) Type II or unspecified type diabetes mellitus without mention of complication, uncontrolled 05/20/2009 Myalgia and myositis, unspecified 06/24/2013 Generalized osteoarthrosis, unspecified site 08/18/2018 documented as of this encounter (statuses as of 08/23/2021) [facility] History of Past illness Narrative* Problem Noted Date Resolved Date Neck pain, chronic 01/29/2018 08/18/2018 Overview: Added automatically from request for surgery [id number] Neck pain on left side 01/08/2018 9 Radiculopathy, lumbar region 12/01/201711/2019 Tear of medial meniscus of right knee, subsequen t encounter 08/20/2017 08/18/2018 Muscle weakness 12/22/2016 08/18/2018 Closed dislocation of hip, unspecified site 0808/201411/30/2014 Other joint derangement, not elsewhere classified, unspecified site 09/15/2014 11/30/2014 Mammographic microcalcificat ion found on diagnostic imaging of breast 09/13/2014 02/18/2019 Lumbago 01/17/2013 02/18/2019 Pain in joint, pelvic region and thigh 1 11/30/2014 NEVUS///BENIGN ANGELLA SKIN FACE NEC 12/18/2006 08/18/2018 NEVUS BACK/ABD.//BENIGN ANGELLA SKIN TRUNK 7 08/18/2018 Synovitis and tenosynovitis in diseases classifi ed elsewhere 06/27/2005 02/18/2019 Mitral valve disorders(424.0) Type II or unspecified type diabetes mellitus without mention of complication, uncontrolled 05/20/2009 Myalgia and myositis, unspecified 06/24/2013 Generalized osteoarthrosis, unspecified site 08/18/2018 documented as of this encounter (statuses as of 08/28/2021) [facility] History of Past illness Narrative* Problem Noted Date Resolved Date Neck pain, chronic 01/29/2018 08/18/2018 Overview: Added automatically from request for surgery [id number] Neck pain on left side 01/08/2018 9 Radiculopathy, lumbar region 12/01/201711/2019 Tear of medial meniscus of right knee, subsequen t encounter 08/20/2017 08/18/2018 Muscle weakness 12/22/2016 08/18/2018 Closed dislocation of hip, unspecified site 08/0 08/201411/30/2014 Other joint derangement, not elsewhere classified, unspecified site 09/15/2014 11/30/2014 Mammographic microcalcificat ion found on diagnostic imaging of breast 09/13/2014 02/18/2019 Lumbago 01/17/2013 02/18/2019 Pain in joint, pelvic region and thigh 1 11/30/2014 NEVUS///BENIGN ANGELLA SKIN FACE NEC 12/18/2006 08/18/2018 NEVUS BACK/ABD.//BENIGN ANGELLA SKIN TRUNK 7 08/18/2018 Synovitis and tenosynovitis in diseases classifi ed elsewhere 06/27/2005 02/18/2019 Mitral valve disorders(424.0) Type II or unspecified type diabetes mellitus without mention of complication, uncontrolled 05/20/2009 Myalgia and myositis, unspecified 06/24/2013 Generalized osteoarthrosis, unspecified site 08/18/2018 documented as of this encounter (statuses as of 10/07/2021) [facility] History of Past illness Narrative* Problem Noted Date Resolved Date Neck pain, chronic 01/29/2018 08/18/2018 Overview: Added automatically from request for surgery [id number] Neck pain on left side 01/08/2018 9 Radiculopathy, lumbar region 12/01/201711/2019 Tear of medial meniscus of right knee, subsequen t encounter 08/20/2017 08/18/2018 Muscle weakness 12/22/2016 08/18/2018 Closed dislocation of hip, unspecified site 08/0 08/201411/30/2014 Other joint derangement, not elsewhere classified, unspecified site 09/15/2014 11/30/2014 Mammographic microcalcificat ion found on diagnostic imaging of breast 09/13/2014 02/18/2019 Lumbago 01/17/2013 02/18/2019 Pain in joint, pelvic region and thigh 1 11/30/2014 NEVUS///BENIGN ANGELLA SKIN FACE NEC 12/18/2006 08/18/2018 NEVUS BACK/ABD.//BENIGN ANGELLA SKIN TRUNK 7 08/18/2018 Synovitis and tenosynovitis in diseases classifi ed elsewhere 06/27/2005 02/18/2019 Mitral valve disorders(424.0) Type II or unspecified type diabetes mellitus without mention of complication, uncontrolled 05/20/2009 Myalgia and myositis, unspecified 06/24/2013 Generalized osteoarthrosis, unspecified site 08/18/2018 documented as of this encounter (statuses as of 10/08/2021) [facility] History of Past illness Narrative* Problem Noted Date Resolved Date Neck pain, chronic 01/29/2018 08/18/2018 Overview: Added automatically from request for surgery [id number] Neck pain on left side 01/08/2018 9 Radiculopathy, lumbar region 12/01/201711/2019 Tear of medial meniscus of right knee, subsequen t encounter 08/20/2017 08/18/2018 Muscle weakness 12/22/2016 08/18/2018 Closed dislocation of hip, unspecified site 0808/201411/30/2014 Other joint derangement, not elsewhere classified, unspecified site 09/15/2014 11/30/2014 Mammographic microcalcificat ion found on diagnostic imaging of breast 09/13/2014 02/18/2019 Lumbago 01/17/2013 02/18/2019 Pain in joint, pelvic region and thigh 1 11/30/2014 NEVUS///BENIGN ANGELLA SKIN FACE NEC 12/18/2006 08/18/2018 NEVUS BACK/ABD.//BENIGN ANGELLA SKIN TRUNK 7 08/18/2018 Synovitis and tenosynovitis in diseases classifi ed elsewhere 06/27/2005 02/18/2019 Mitral valve disorders(424.0) Type II or unspecified type diabetes mellitus without mention of complication, uncontrolled 05/20/2009 Myalgia and myositis, unspecified 06/24/2013 Generalized osteoarthrosis, unspecified site 08/18/2018 documented as of this encounter (statuses as of 10/16/2021) [facility] History of Past illness Narrative* Problem Noted Date Resolved Date Neck pain, chronic 01/29/2018 08/18/2018 Overview: Added automatically from request for surgery [id number] Neck pain on left side 01/08/2018 9 Radiculopathy, lumbar region 12/01/201711/2019 Tear of medial meniscus of right knee, subsequen t encounter 08/20/2017 08/18/2018 Muscle weakness 12/22/2016 08/18/2018 Closed dislocation of hip, unspecified site 08/201411/30/2014 Other joint derangement, not elsewhere classified, unspecified site 09/15/2014 11/30/2014 Mammographic microcalcificat ion found on diagnostic imaging of breast 09/13/2014 02/18/2019 Lumbago 01/17/2013 02/18/2019 Pain in joint, pelvic region and thigh 1 11/30/2014 NEVUS///BENIGN ANGELLA SKIN FACE NEC 12/18/2006 08/18/2018 NEVUS BACK/ABD.//BENIGN ANGELLA SKIN TRUNK 7 08/18/2018 Synovitis and tenosynovitis in diseases classifi ed elsewhere 06/27/2005 02/18/2019 Mitral valve disorders(424.0) Type II or unspecified type diabetes mellitus without mention of complication, uncontrolled 05/20/2009 Myalgia and myositis, unspecified 06/24/2013 Generalized osteoarthrosis, unspecified site 08/18/2018 documented as of this encounter (statuses as of 10/22/2021) [facility] History of Past illness Narrative* Problem Noted Date Resolved Date Neck pain, chronic 01/29/2018 08/18/2018 Overview: Added automatically from request for surgery [id number] Neck pain on left side 01/08/2018 9 Radiculopathy, lumbar region 12/01/201711/2019 Tear of medial meniscus of right knee, subsequen t encounter 08/20/2017 08/18/2018 Muscle weakness 12/22/2016 08/18/2018 Closed dislocation of hip, unspecified site 08/0 08/201411/30/2014 Other joint derangement, not elsewhere classified, unspecified site 09/15/2014 11/30/2014 Mammographic microcalcificat ion found on diagnostic imaging of breast 09/13/2014 02/18/2019 Lumbago 01/17/2013 02/18/2019 Pain in joint, pelvic region and thigh 1 11/30/2014 NEVUS///BENIGN ANGELLA SKIN FACE NEC 12/18/2006 08/18/2018 NEVUS BACK/ABD.//BENIGN ANGELLA SKIN TRUNK 7 08/18/2018 Synovitis and tenosynovitis in diseases classifi ed elsewhere 06/27/2005 02/18/2019 Mitral valve disorders(424.0) Type II or unspecified type diabetes mellitus without mention of complication, uncontrolled 05/20/2009 Myalgia and myositis, unspecified 06/24/2013 Generalized osteoarthrosis, unspecified site 08/18/2018 documented as of this encounter (statuses as of 10/24/2021) [facility] History of Past illness Narrative* Problem Noted Date Resolved Date Neck pain, chronic 01/29/2018 08/18/2018 Overview: Added automatically from request for surgery [id number] Neck pain on left side 01/08/2018 9 Radiculopathy, lumbar region 12/01/201711/2019 Tear of medial meniscus of right knee, subsequen t encounter 08/20/2017 08/18/2018 Muscle weakness 12/22/2016 08/18/2018 Closed dislocation of hip, unspecified site 08/0 08/201411/30/2014 Other joint derangement, not elsewhere classified, unspecified site 09/15/2014 11/30/2014 Mammographic microcalcificat ion found on diagnostic imaging of breast 09/13/2014 02/18/2019 Lumbago 01/17/2013 02/18/2019 Pain in joint, pelvic region and thigh 1 11/30/2014 NEVUS///BENIGN ANGELLA SKIN FACE NEC 12/18/2006 08/18/2018 NEVUS BACK/ABD.//BENIGN ANGELLA SKIN TRUNK 7 08/18/2018 Synovitis and tenosynovitis in diseases classifi ed elsewhere 06/27/2005 02/18/2019 Mitral valve disorders(424.0) Type II or unspecified type diabetes mellitus without mention of complication, uncontrolled 05/20/2009 Myalgia and myositis, unspecified 06/24/2013 Generalized osteoarthrosis, unspecified site 08/18/2018 documented as of this encounter (statuses as of 10/25/2021) [facility] History of Past illness Narrative* Problem Noted Date Resolved Date Neck pain, chronic 01/29/2018 08/18/2018 Overview: Added automatically from request for surgery [id number] Neck pain on left side 01/08/2018 9 Radiculopathy, lumbar region 12/01/201711/2019 Tear of medial meniscus of right knee, subsequen t encounter 08/20/2017 08/18/2018 Muscle weakness 12/22/2016 08/18/2018 Closed dislocation of hip, unspecified site 0808/201411/30/2014 Other joint derangement, not elsewhere classified, unspecified site 09/15/2014 11/30/2014 Mammographic microcalcificat ion found on diagnostic imaging of breast 09/13/2014 02/18/2019 Lumbago 01/17/2013 02/18/2019 Pain in joint, pelvic region and thigh 1 11/30/2014 NEVUS///BENIGN ANGELLA SKIN FACE NEC 12/18/2006 08/18/2018 NEVUS BACK/ABD.//BENIGN ANGELLA SKIN TRUNK 7 08/18/2018 Synovitis and tenosynovitis in diseases classifi ed elsewhere 06/27/2005 02/18/2019 Mitral valve disorders(424.0) Type II or unspecified type diabetes mellitus without mention of complication, uncontrolled 05/20/2009 Myalgia and myositis, unspecified 06/24/2013 Generalized osteoarthrosis, unspecified site 08/18/2018 documented as of this encounter (statuses as of 11/09/2021) [facility] History of Past illness Narrative* Problem Noted Date Resolved Date Neck pain, chronic 01/29/2018 08/18/2018 Overview: Added automatically from request for surgery [id number] Neck pain on left side 01/08/2018 9 Radiculopathy, lumbar region 12/01/201711/2019 Tear of medial meniscus of right knee, subsequen t encounter 08/20/2017 08/18/2018 Muscle weakness 12/22/2016 08/18/2018 Closed dislocation of hip, unspecified site 08/201411/30/2014 Other joint derangement, not elsewhere classified, unspecified site 09/15/2014 11/30/2014 Mammographic microcalcificat ion found on diagnostic imaging of breast 09/13/2014 02/18/2019 Lumbago 01/17/2013 02/18/2019 Pain in joint, pelvic region and thigh 1 11/30/2014 NEVUS///BENIGN ANGELLA SKIN FACE NEC 12/18/2006 08/18/2018 NEVUS BACK/ABD.//BENIGN ANGELLA SKIN TRUNK 7 08/18/2018 Synovitis and tenosynovitis in diseases classifi ed elsewhere 06/27/2005 02/18/2019 Mitral valve disorders(424.0) Type II or unspecified type diabetes mellitus without mention of complication, uncontrolled 05/20/2009 Myalgia and myositis, unspecified 06/24/2013 Generalized osteoarthrosis, unspecified site 08/18/2018 documented as of this encounter (statuses as of 11/26/2021) [facility] History of Past illness Narrative* Problem Noted Date Resolved Date Neck pain, chronic 01/29/2018 08/18/2018 Overview: Added automatically from request for surgery [id number] Neck pain on left side 01/08/2018 9 Radiculopathy, lumbar region 12/01/201711/2019 Tear of medial meniscus of right knee, subsequen t encounter 08/20/2017 08/18/2018 Muscle weakness 12/22/2016 08/18/2018 Closed dislocation of hip, unspecified site 08/0 08/201411/30/2014 Other joint derangement, not elsewhere classified, unspecified site 09/15/2014 11/30/2014 Mammographic microcalcificat ion found on diagnostic imaging of breast 09/13/2014 02/18/2019 Lumbago 01/17/2013 02/18/2019 Pain in joint, pelvic region and thigh 1 11/30/2014 NEVUS///BENIGN ANGELLA SKIN FACE NEC 12/18/2006 08/18/2018 NEVUS BACK/ABD.//BENIGN ANGELLA SKIN TRUNK 7 08/18/2018 Synovitis and tenosynovitis in diseases classifi ed elsewhere 06/27/2005 02/18/2019 Mitral valve disorders(424.0) Type II or unspecified type diabetes mellitus without mention of complication, uncontrolled 05/20/2009 Myalgia and myositis, unspecified 06/24/2013 Generalized osteoarthrosis, unspecified site 08/18/2018 documented as of this encounter (statuses as of 11/27/2021) [facility] History of Past illness Narrative* Problem Noted Date Resolved Date Neck pain, chronic 01/29/2018 08/18/2018 Overview: Added automatically from request for surgery [id number] Neck pain on left side 01/08/2018 9 Radiculopathy, lumbar region 12/01/201711/2019 Tear of medial meniscus of right knee, subsequen t encounter 08/20/2017 08/18/2018 Muscle weakness 12/22/2016 08/18/2018 Closed dislocation of hip, unspecified site 08/0 08/201411/30/2014 Other joint derangement, not elsewhere classified, unspecified site 09/15/2014 11/30/2014 Mammographic microcalcificat ion found on diagnostic imaging of breast 09/13/2014 02/18/2019 Pain in joint, pelvic region and thigh 1 11/30/2014 NEVUS///BENIGN ANGELLA SKIN FACE NEC 12/18/2006 08/18/2018 NEVUS BACK/ABD.//BENIGN ANGELLA SKIN TRUNK 7 08/18/2018 Synovitis and tenosynovitis in diseases classifi ed elsewhere 06/27/2005 02/18/2019 Mitral valve disorders(424.0) Type II or unspecified type diabetes mellitus without mention of complication, uncontrolled 05/20/2009 Myalgia and myositis, unspecified 06/24/2013 Generalized osteoarthrosis, unspecified site 08/18/2018 documented as of this encounter (statuses as of 12/03/2021) [facility] History of Past illness Narrative* Problem Noted Date Resolved Date Neck pain, chronic 01/29/2018 08/18/2018 Overview: Added automatically from request for surgery [id number] Neck pain on left side 01/08/2018 9 Radiculopathy, lumbar region 12/01/201711/2019 Tear of medial meniscus of right knee, subsequen t encounter 08/20/2017 08/18/2018 Muscle weakness 12/22/2016 08/18/2018 Closed dislocation of hip, unspecified site 08/08/201411/30/2014 Other joint derangement, not elsewhere classified, unspecified site 09/15/2014 11/30/2014 Mammographic microcalcificat ion found on diagnostic imaging of breast 09/13/2014 02/18/2019 Pain in joint, pelvic region and thigh 1 11/30/2014 NEVUS///BENIGN ANGELLA SKIN FACE NEC 12/18/2006 08/18/2018 NEVUS BACK/ABD.//BENIGN ANGELLA SKIN TRUNK 7 08/18/2018 Synovitis and tenosynovitis in diseases classifi ed elsewhere 06/27/2005 02/18/2019 Mitral valve disorders(424.0) Type II or unspecified type diabetes mellitus without mention of complication, uncontrolled 05/20/2009 Myalgia and myositis, unspecified 06/24/2013 Generalized osteoarthrosis, unspecified site 08/18/2018 documented as of this encounter (statuses as of 12/03/2021) [facility] History of Past illness Narrative* Problem Noted Date Resolved Date Neck pain, chronic 01/29/2018 08/18/2018 Overview: Added automatically from request for surgery [id number] Neck pain on left side 01/08/2018 9 Radiculopathy, lumbar region 12/01/201711/2019 Tear of medial meniscus of right knee, subsequen t encounter 08/20/2017 08/18/2018 Muscle weakness 12/22/2016 08/18/2018 Closed dislocation of hip, unspecified site 08/0 08/201411/30/2014 Other joint derangement, not elsewhere classified, unspecified site 09/15/2014 11/30/2014 Mammographic microcalcificat ion found on diagnostic imaging of breast 09/13/2014 02/18/2019 Pain in joint, pelvic region and thigh 1 11/30/2014 NEVUS///BENIGN ANGELLA SKIN FACE NEC 12/18/2006 08/18/2018 NEVUS BACK/ABD.//BENIGN ANGELLA SKIN TRUNK 7 08/18/2018 Synovitis and tenosynovitis in diseases classifi ed elsewhere 06/27/2005 02/18/2019 Mitral valve disorders(424.0) Type II or unspecified type diabetes mellitus without mention of complication, uncontrolled 05/20/2009 Myalgia and myositis, unspecified 06/24/2013 Generalized osteoarthrosis, unspecified site 08/18/2018 documented as of this encounter (statuses as of 12/04/2021) [facility] History of Past illness Narrative* Problem Noted Date Resolved Date Neck pain, chronic 01/29/2018 08/18/2018 Overview: Added automatically from request for surgery [id number] Neck pain on left side 01/08/2018 9 Radiculopathy, lumbar region 12/01/201711/2019 Tear of medial meniscus of right knee, subsequen t encounter 08/20/2017 08/18/2018 Muscle weakness 12/22/2016 08/18/2018 Closed dislocation of hip, unspecified site 08/0 08/201411/30/2014 Other joint derangement, not elsewhere classified, unspecified site 09/15/2014 11/30/2014 Mammographic microcalcificat ion found on diagnostic imaging of breast 09/13/2014 02/18/2019 Pain in joint, pelvic region and thigh 1 11/30/2014 NEVUS///BENIGN ANGELLA SKIN FACE NEC 12/18/2006 08/18/2018 NEVUS BACK/ABD.//BENIGN ANGELLA SKIN TRUNK 7 08/18/2018 Synovitis and tenosynovitis in diseases classifi ed elsewhere 06/27/2005 02/18/2019 Mitral valve disorders(424.0) Type II or unspecified type diabetes mellitus without mention of complication, uncontrolled 05/20/2009 Myalgia and myositis, unspecified 06/24/2013 Generalized osteoarthrosis, unspecified site 08/18/2018 documented as of this encounter (statuses as of 12/04/2021) [facility] History of Past illness Narrative* Problem Noted Date Resolved Date Neck pain, chronic 01/29/2018 08/18/2018 Overview: Added automatically from request for surgery [id number] Neck pain on left side 01/08/2018 9 Radiculopathy, lumbar region 12/01/201711/2019 Tear of medial meniscus of right knee, subsequen t encounter 08/20/2017 08/18/2018 Muscle weakness 12/22/2016 08/18/2018 Closed dislocation of hip, unspecified site 08/201411/30/2014 Other joint derangement, not elsewhere classified, unspecified site 09/15/2014 11/30/2014 Mammographic microcalcificat ion found on diagnostic imaging of breast 09/13/2014 02/18/2019 Pain in joint, pelvic region and thigh 1 11/30/2014 NEVUS///BENIGN ANGELLA SKIN FACE NEC 12/18/2006 08/18/2018 NEVUS BACK/ABD.//BENIGN ANGELLA SKIN TRUNK 7 08/18/2018 Synovitis and tenosynovitis in diseases classifi ed elsewhere 06/27/2005 02/18/2019 Mitral valve disorders(424.0) Type II or unspecified type diabetes mellitus without mention of complication, uncontrolled 05/20/2009 Myalgia and myositis, unspecified 06/24/2013 Generalized osteoarthrosis, unspecified site 08/18/2018 documented as of this encounter (statuses as of 12/05/2021) [facility] History of Past illness Narrative* Problem Noted Date Resolved Date Neck pain, chronic 01/29/2018 08/18/2018 Overview: Added automatically from request for surgery [id number] Neck pain on left side 01/08/2018 9 Radiculopathy, lumbar region 12/01/201711/2019 Tear of medial meniscus of right knee, subsequen t encounter 08/20/2017 08/18/2018 Muscle weakness 12/22/2016 08/18/2018 Closed dislocation of hip, unspecified site 08/0 08/201411/30/2014 Other joint derangement, not elsewhere classified, unspecified site 09/15/2014 11/30/2014 Mammographic microcalcificat ion found on diagnostic imaging of breast 09/13/2014 02/18/2019 Pain in joint, pelvic region and thigh 1 11/30/2014 NEVUS///BENIGN ANGELLA SKIN FACE NEC 12/18/2006 08/18/2018 NEVUS BACK/ABD.//BENIGN ANGELLA SKIN TRUNK 7 08/18/2018 Synovitis and tenosynovitis in diseases classifi ed elsewhere 06/27/2005 02/18/2019 Mitral valve disorders(424.0) Type II or unspecified type diabetes mellitus without mention of complication, uncontrolled 05/20/2009 Myalgia and myositis, unspecified 06/24/2013 Generalized osteoarthrosis, unspecified site 08/18/2018 documented as of this encounter (statuses as of 12/12/2021) [facility]12-[facility]2018 History of Past illness Narrative* Problem Noted Date Resolved Date Neck pain, chronic 01/29/2018 08/18/2018 Overview: Added automatically from request for surgery [id number] Neck pain on left side 01/08/2018 9 Radiculopathy, lumbar region 12/01/201711/2019 Tear of medial meniscus of right knee, subsequen t encounter 08/20/2017 08/18/2018 Muscle weakness 12/22/2016 08/18/2018 Closed dislocation of hip, unspecified site 08/0 08/201411/30/2014 Other joint derangement, not elsewhere classified, unspecified site 09/15/2014 11/30/2014 Mammographic microcalcificat ion found on diagnostic imaging of breast 09/13/2014 02/18/2019 Pain in joint, pelvic region and thigh 1 11/30/2014 NEVUS///BENIGN ANGELLA SKIN FACE NEC 12/18/2006 08/18/2018 NEVUS BACK/ABD.//BENIGN ANGELLA SKIN TRUNK 7 08/18/2018 Synovitis and tenosynovitis in diseases classifi ed elsewhere 06/27/2005 02/18/2019 Mitral valve disorders(424.0) Type II or unspecified type diabetes mellitus without mention of complication, uncontrolled 05/20/2009 Myalgia and myositis, unspecified 06/24/2013 Generalized osteoarthrosis, unspecified site 08/18/2018 documented as of this encounter (statuses as of 12/12/2021) [facility]12[facility]2018 History of Past illness Narrative* Problem Noted Date Resolved Date Neck pain, chronic 01/29/2018 08/18/2018 Overview: Added automatically from request for surgery [id number] Neck pain on left side 01/08/2018 9 Radiculopathy, lumbar region 12/01/201711/2019 Tear of medial meniscus of right knee, subsequen t encounter 08/20/2017 08/18/2018 Muscle weakness 12/22/2016 08/18/2018 Closed dislocation of hip, unspecified site 08/08/201411/30/2014 Other joint derangement, not elsewhere classified, unspecified site 09/15/2014 11/30/2014 Mammographic microcalcificat ion found on diagnostic imaging of breast 09/13/2014 02/18/2019 Pain in joint, pelvic region and thigh 1 11/30/2014 NEVUS///BENIGN ANGELLA SKIN FACE NEC 12/18/2006 08/18/2018 NEVUS BACK/ABD.//BENIGN ANGELLA SKIN TRUNK 7 08/18/2018 Synovitis and tenosynovitis in diseases classifi ed elsewhere 06/27/2005 02/18/2019 Mitral valve disorders(424.0) Type II or unspecified type diabetes mellitus without mention of complication, uncontrolled 05/20/2009 Myalgia and myositis, unspecified 06/24/2013 Generalized osteoarthrosis, unspecified site 08/18/2018 documented as of this encounter (statuses as of 12/16/2021) [facility] History of Past illness Narrative* Problem Noted Date Resolved Date Neck pain, chronic 01/29/2018 08/18/2018 Overview: Added automatically from request for surgery [id number] Neck pain on left side 01/08/2018 9 Radiculopathy, lumbar region 12/01/201711/2019 Tear of medial meniscus of right knee, subsequen t encounter 08/20/2017 08/18/2018 Muscle weakness 12/22/2016 08/18/2018 Closed dislocation of hip, unspecified site 08/201411/30/2014 Other joint derangement, not elsewhere classified, unspecified site 09/15/2014 11/30/2014 Mammographic microcalcificat ion found on diagnostic imaging of breast 09/13/2014 02/18/2019 Pain in joint, pelvic region and thigh 1 11/30/2014 NEVUS///BENIGN ANGELLA SKIN FACE NEC 12/18/2006 08/18/2018 NEVUS BACK/ABD.//BENIGN ANGELLA SKIN TRUNK 7 08/18/2018 Synovitis and tenosynovitis in diseases classifi ed elsewhere 06/27/2005 02/18/2019 Mitral valve disorders(424.0) Type II or unspecified type diabetes mellitus without mention of complication, uncontrolled 05/20/2009 Myalgia and myositis, unspecified 06/24/2013 Generalized osteoarthrosis, unspecified site 08/18/2018 documented as of this encounter (statuses as of 12/19/2021) [facility] History of Past illness Narrative* Problem Noted Date Resolved Date Neck pain, chronic 01/29/2018 08/18/2018 Overview: Added automatically from request for surgery [id number] Neck pain on left side 01/08/2018 9 Radiculopathy, lumbar region 12/01/201711/2019 Tear of medial meniscus of right knee, subsequen t encounter 08/20/2017 08/18/2018 Muscle weakness 12/22/2016 08/18/2018 Closed dislocation of hip, unspecified site 08/0 08/201411/30/2014 Other joint derangement, not elsewhere classified, unspecified site 09/15/2014 11/30/2014 Mammographic microcalcificat ion found on diagnostic imaging of breast 09/13/2014 02/18/2019 Pain in joint, pelvic region and thigh 1 11/30/2014 NEVUS///BENIGN ANGELLA SKIN FACE NEC 12/18/2006 08/18/2018 NEVUS BACK/ABD.//BENIGN ANGELLA SKIN TRUNK 7 08/18/2018 Synovitis and tenosynovitis in diseases classifi ed elsewhere 06/27/2005 02/18/2019 Mitral valve disorders(424.0) Type II or unspecified type diabetes mellitus without mention of complication, uncontrolled 05/20/2009 Myalgia and myositis, unspecified 06/24/2013 Generalized osteoarthrosis, unspecified site 08/18/2018 documented as of this encounter (statuses as of 12/24/2021) [facility] History of Past illness Narrative* Problem Noted Date Resolved Date Neck pain, chronic 01/29/2018 08/18/2018 Overview: Added automatically from request for surgery [id number] Neck pain on left side 01/08/2018 9 Radiculopathy, lumbar region 12/01/201711/2019 Tear of medial meniscus of right knee, subsequen t encounter 08/20/2017 08/18/2018 Muscle weakness 12/22/2016 08/18/2018 Closed dislocation of hip, unspecified site 08/0 08/201411/30/2014 Other joint derangement, not elsewhere classified, unspecified site 09/15/2014 11/30/2014 Mammographic microcalcificat ion found on diagnostic imaging of breast 09/13/2014 02/18/2019 Pain in joint, pelvic region and thigh 1 11/30/2014 NEVUS///BENIGN ANGELLA SKIN FACE NEC 12/18/2006 08/18/2018 NEVUS BACK/ABD.//BENIGN ANGELLA SKIN TRUNK 7 08/18/2018 Synovitis and tenosynovitis in diseases classifi ed elsewhere 06/27/2005 02/18/2019 Mitral valve disorders(424.0) Type II or unspecified type diabetes mellitus without mention of complication, uncontrolled 05/20/2009 Myalgia and myositis, unspecified 06/24/2013 Generalized osteoarthrosis, unspecified site 08/18/2018 documented as of this encounter (statuses as of 01/09/2022) [facility] History of Past illness Narrative* Problem Noted Date Resolved Date Neck pain, chronic 01/29/2018 08/18/2018 Overview: Added automatically from request for surgery [id number] Neck pain on left side 01/08/2018 9 Radiculopathy, lumbar region 12/01/201711/2019 Tear of medial meniscus of right knee, subsequen t encounter 08/20/2017 08/18/2018 Muscle weakness 12/22/2016 08/18/2018 Closed dislocation of hip, unspecified site 08/201411/30/2014 Other joint derangement, not elsewhere classified, unspecified site 09/15/2014 11/30/2014 Mammographic microcalcificat ion found on diagnostic imaging of breast 09/13/2014 02/18/2019 Pain in joint, pelvic region and thigh 1 11/30/2014 NEVUS///BENIGN ANGELLA SKIN FACE NEC 12/18/2006 08/18/2018 NEVUS BACK/ABD.//BENIGN ANGELLA SKIN TRUNK 7 08/18/2018 Synovitis and tenosynovitis in diseases classifi ed elsewhere 06/27/2005 02/18/2019 Mitral valve disorders(424.0) Type II or unspecified type diabetes mellitus without mention of complication, uncontrolled 05/20/2009 Myalgia and myositis, unspecified 06/24/2013 Generalized osteoarthrosis, unspecified site 08/18/2018 documented as of this encounter (statuses as of 01/22/2022) [facility] History of Past illness Narrative* Problem Noted Date Resolved Date Neck pain, chronic 01/29/2018 08/18/2018 Overview: Added automatically from request for surgery [id number] Neck pain on left side 01/08/2018 9 Radiculopathy, lumbar region 12/01/201711/2019 Tear of medial meniscus of right knee, subsequen t encounter 08/20/2017 08/18/2018 Muscle weakness 12/22/2016 08/18/2018 Closed dislocation of hip, unspecified site 08/0 08/201411/30/2014 Other joint derangement, not elsewhere classified, unspecified site 09/15/2014 11/30/2014 Mammographic microcalcificat ion found on diagnostic imaging of breast 09/13/2014 02/18/2019 Pain in joint, pelvic region and thigh 1 11/30/2014 NEVUS///BENIGN ANGELLA SKIN FACE NEC 12/18/2006 08/18/2018 NEVUS BACK/ABD.//BENIGN ANGELLA SKIN TRUNK 7 08/18/2018 Synovitis and tenosynovitis in diseases classifi ed elsewhere 06/27/2005 02/18/2019 Mitral valve disorders(424.0) Type II or unspecified type diabetes mellitus without mention of complication, uncontrolled 05/20/2009 Myalgia and myositis, unspecified 06/24/2013 Generalized osteoarthrosis, unspecified site 08/18/2018 documented as of this encounter (statuses as of 02/18/2022) [facility] History of Past illness Narrative* Problem Noted Date Resolved Date Neck pain, chronic 01/29/2018 08/18/2018 Overview: Added automatically from request for surgery [id number] Neck pain on left side 01/08/2018 9 Radiculopathy, lumbar region 12/01/201711/2019 Tear of medial meniscus of right knee, subsequen t encounter 08/20/2017 08/18/2018 Muscle weakness 12/22/2016 08/18/2018 Closed dislocation of hip, unspecified site 08/0 08/201411/30/2014 Other joint derangement, not elsewhere classified, unspecified site 09/15/2014 11/30/2014 Mammographic microcalcificat ion found on diagnostic imaging of breast 09/13/2014 02/18/2019 Pain in joint, pelvic region and thigh 1 11/30/2014 NEVUS///BENIGN ANGELLA SKIN FACE NEC 12/18/2006 08/18/2018 NEVUS BACK/ABD.//BENIGN ANGELLA SKIN TRUNK 7 08/18/2018 Synovitis and tenosynovitis in diseases classifi ed elsewhere 06/27/2005 02/18/2019 Mitral valve disorders(424.0) Type II or unspecified type diabetes mellitus without mention of complication, uncontrolled 05/20/2009 Myalgia and myositis, unspecified 06/24/2013 Generalized osteoarthrosis, unspecified site 08/18/2018 documented as of this encounter (statuses as of 02/20/2022) [facility] History of Past illness Narrative* Problem Noted Date Resolved Date Neck pain, chronic 01/29/2018 08/18/2018 Overview: Added automatically from request for surgery [id number] Neck pain on left side 01/08/2018 9 Radiculopathy, lumbar region 12/01/201711/2019 Tear of medial meniscus of right knee, subsequen t encounter 08/20/2017 08/18/2018 Muscle weakness 12/22/2016 08/18/2018 Closed dislocation of hip, unspecified site 0808/201411/30/2014 Other joint derangement, not elsewhere classified, unspecified site 09/15/2014 11/30/2014 Mammographic microcalcificat ion found on diagnostic imaging of breast 09/13/2014 02/18/2019 Pain in joint, pelvic region and thigh 1 11/30/2014 NEVUS///BENIGN ANGELLA SKIN FACE NEC 12/18/2006 08/18/2018 NEVUS BACK/ABD.//BENIGN ANGELLA SKIN TRUNK 7 08/18/2018 Synovitis and tenosynovitis in diseases classifi ed elsewhere 06/27/2005 02/18/2019 Mitral valve disorders(424.0) Type II or unspecified type diabetes mellitus without mention of complication, uncontrolled 05/20/2009 Myalgia and myositis, unspecified 06/24/2013 Generalized osteoarthrosis, unspecified site 08/18/2018 documented as of this encounter (statuses as of 02/21/2022) [facility] History of Past illness Narrative* Problem Noted Date Resolved Date Neck pain, chronic 01/29/2018 08/18/2018 Overview: Added automatically from request for surgery [id number] Neck pain on left side 01/08/2018 9 Radiculopathy, lumbar region 12/01/201711/2019 Tear of medial meniscus of right knee, subsequen t encounter 08/20/2017 08/18/2018 Muscle weakness 12/22/2016 08/18/2018 Closed dislocation of hip, unspecified site 08/0 08/201411/30/2014 Other joint derangement, not elsewhere classified, unspecified site 09/15/2014 11/30/2014 Mammographic microcalcificat ion found on diagnostic imaging of breast 09/13/2014 02/18/2019 Pain in joint, pelvic region and thigh 1 11/30/2014 NEVUS///BENIGN ANGELLA SKIN FACE NEC 12/18/2006 08/18/2018 NEVUS BACK/ABD.//BENIGN ANGELLA SKIN TRUNK 7 08/18/2018 Synovitis and tenosynovitis in diseases classifi ed elsewhere 06/27/2005 02/18/2019 Mitral valve disorders(424.0) Type II or unspecified type diabetes mellitus without mention of complication, uncontrolled 05/20/2009 Myalgia and myositis, unspecified 06/24/2013 Generalized osteoarthrosis, unspecified site 08/18/2018 documented as of this encounter (statuses as of 03/02/2022) [facility] History of Past illness Narrative* Problem Noted Date Resolved Date Neck pain, chronic 01/29/2018 08/18/2018 Overview: Added automatically from request for surgery [id number] Neck pain on left side 01/08/2018 9 Radiculopathy, lumbar region 12/01/201711/2019 Tear of medial meniscus of right knee, subsequen t encounter 08/20/2017 08/18/2018 Muscle weakness 12/22/2016 08/18/2018 Closed dislocation of hip, unspecified site 08/0 08/201411/30/2014 Other joint derangement, not elsewhere classified, unspecified site 09/15/2014 11/30/2014 Mammographic microcalcificat ion found on diagnostic imaging of breast 09/13/2014 02/18/2019 Pain in joint, pelvic region and thigh 1 11/30/2014 NEVUS///BENIGN ANGELLA SKIN FACE NEC 12/18/2006 08/18/2018 NEVUS BACK/ABD.//BENIGN ANGELLA SKIN TRUNK 7 08/18/2018 Synovitis and tenosynovitis in diseases classifi ed elsewhere 06/27/2005 02/18/2019 Mitral valve disorders(424.0) Type II or unspecified type diabetes mellitus without mention of complication, uncontrolled 05/20/2009 Myalgia and myositis, unspecified 06/24/2013 Generalized osteoarthrosis, unspecified site 08/18/2018 documented as of this encounter (statuses as of 03/12/2022) [facility] History of Past illness Narrative* Problem Noted Date Resolved Date Neck pain, chronic 01/29/2018 08/18/2018 Overview: Added automatically from request for surgery [id number] Neck pain on left side 01/08/2018 9 Radiculopathy, lumbar region 12/01/201711/2019 Tear of medial meniscus of right knee, subsequen t encounter 08/20/2017 08/18/2018 Muscle weakness 12/22/2016 08/18/2018 Closed dislocation of hip, unspecified site 08/0 08/201411/30/2014 Other joint derangement, not elsewhere classified, unspecified site 09/15/2014 11/30/2014 Mammographic microcalcificat ion found on diagnostic imaging of breast 09/13/2014 02/18/2019 Pain in joint, pelvic region and thigh 1 11/30/2014 NEVUS///BENIGN ANGELLA SKIN FACE NEC 12/18/2006 08/18/2018 NEVUS BACK/ABD.//BENIGN ANGELLA SKIN TRUNK 7 08/18/2018 Synovitis and tenosynovitis in diseases classifi ed elsewhere 06/27/2005 02/18/2019 Mitral valve disorders(424.0) Type II or unspecified type diabetes mellitus without mention of complication, uncontrolled 05/20/2009 Myalgia and myositis, unspecified 06/24/2013 Generalized osteoarthrosis, unspecified site 08/18/2018 documented as of this encounter (statuses as of 03/14/2022) [facility] History of Past illness Narrative* Problem Noted Date Resolved Date Neck pain, chronic 01/29/2018 08/18/2018 Overview: Added automatically from request for surgery [id number] Neck pain on left side 01/08/2018 9 Radiculopathy, lumbar region 12/01/201711/2019 Tear of medial meniscus of right knee, subsequen t encounter 08/20/2017 08/18/2018 Muscle weakness 12/22/2016 08/18/2018 Closed dislocation of hip, unspecified site 0808/201411/30/2014 Other joint derangement, not elsewhere classified, unspecified site 09/15/2014 11/30/2014 Mammographic microcalcificat ion found on diagnostic imaging of breast 09/13/2014 02/18/2019 Pain in joint, pelvic region and thigh 1 11/30/2014 NEVUS///BENIGN ANGELLA SKIN FACE NEC 12/18/2006 08/18/2018 NEVUS BACK/ABD.//BENIGN ANGELLA SKIN TRUNK 7 08/18/2018 Synovitis and tenosynovitis in diseases classifi ed elsewhere 06/27/2005 02/18/2019 Mitral valve disorders(424.0) Type II or unspecified type diabetes mellitus without mention of complication, uncontrolled 05/20/2009 Myalgia and myositis, unspecified 06/24/2013 Generalized osteoarthrosis, unspecified site 08/18/2018 documented as of this encounter (statuses as of 03/14/2022) [facility] History of Past illness Narrative* Problem Noted Date Resolved Date Neck pain, chronic 01/29/2018 08/18/2018 Overview: Added automatically from request for surgery [id number] Neck pain on left side 01/08/2018 9 Radiculopathy, lumbar region 12/01/201711/2019 Tear of medial meniscus of right knee, subsequen t encounter 08/20/2017 08/18/2018 Muscle weakness 12/22/2016 08/18/2018 Closed dislocation of hip, unspecified site 08/0 08/201411/30/2014 Other joint derangement, not elsewhere classified, unspecified site 09/15/2014 11/30/2014 Mammographic microcalcificat ion found on diagnostic imaging of breast 09/13/2014 02/18/2019 Pain in joint, pelvic region and thigh 1 11/30/2014 NEVUS///BENIGN ANGELLA SKIN FACE NEC 12/18/2006 08/18/2018 NEVUS BACK/ABD.//BENIGN ANGELLA SKIN TRUNK 7 08/18/2018 Synovitis and tenosynovitis in diseases classifi ed elsewhere 06/27/2005 02/18/2019 Mitral valve disorders(424.0) Type II or unspecified type diabetes mellitus without mention of complication, uncontrolled 05/20/2009 Myalgia and myositis, unspecified 06/24/2013 Generalized osteoarthrosis, unspecified site 08/18/2018 documented as of this encounter (statuses as of 03/20/2022) [facility] History of Past illness Narrative* Problem Noted Date Resolved Date Neck pain, chronic 01/29/2018 08/18/2018 Overview: Added automatically from request for surgery [id number] Neck pain on left side 01/08/2018 9 Radiculopathy, lumbar region 12/01/201711/2019 Tear of medial meniscus of right knee, subsequen t encounter 08/20/2017 08/18/2018 Muscle weakness 12/22/2016 08/18/2018 Closed dislocation of hip, unspecified site 08/0 08/201411/30/2014 Other joint derangement, not elsewhere classified, unspecified site 09/15/2014 11/30/2014 Mammographic microcalcificat ion found on diagnostic imaging of breast 09/13/2014 02/18/2019 Pain in joint, pelvic region and thigh 1 11/30/2014 NEVUS///BENIGN ANGELLA SKIN FACE NEC 12/18/2006 08/18/2018 NEVUS BACK/ABD.//BENIGN ANGELLA SKIN TRUNK 7 08/18/2018 Synovitis and tenosynovitis in diseases classifi ed elsewhere 06/27/2005 02/18/2019 Mitral valve disorders(424.0) Type II or unspecified type diabetes mellitus without mention of complication, uncontrolled 05/20/2009 Myalgia and myositis, unspecified 06/24/2013 Generalized osteoarthrosis, unspecified site 08/18/2018 documented as of this encounter (statuses as of 03/24/2022) [facility] History of Past illness Narrative* Problem Noted Date Resolved Date Neck pain, chronic 01/29/2018 08/18/2018 Overview: Added automatically from request for surgery [id number] Neck pain on left side 01/08/2018 9 Radiculopathy, lumbar region 12/01/201711/2019 Tear of medial meniscus of right knee, subsequen t encounter 08/20/2017 08/18/2018 Muscle weakness 12/22/2016 08/18/2018 Closed dislocation of hip, unspecified site 08/201411/30/2014 Other joint derangement, not elsewhere classified, unspecified site 09/15/2014 11/30/2014 Mammographic microcalcificat ion found on diagnostic imaging of breast 09/13/2014 02/18/2019 Pain in joint, pelvic region and thigh 1 11/30/2014 NEVUS///BENIGN ANGELLA SKIN FACE NEC 12/18/2006 08/18/2018 NEVUS BACK/ABD.//BENIGN ANGELLA SKIN TRUNK 7 08/18/2018 Synovitis and tenosynovitis in diseases classifi ed elsewhere 06/27/2005 02/18/2019 Mitral valve disorders(424.0) Type II or unspecified type diabetes mellitus without mention of complication, uncontrolled 05/20/2009 Myalgia and myositis, unspecified 06/24/2013 Generalized osteoarthrosis, unspecified site 08/18/2018 documented as of this encounter (statuses as of 03/25/2022) [facility] History of Past illness Narrative* Problem Noted Date Resolved Date Neck pain, chronic 01/29/2018 08/18/2018 Overview: Added automatically from request for surgery [id number] Neck pain on left side 01/08/2018 9 Radiculopathy, lumbar region 12/01/201711/2019 Tear of medial meniscus of right knee, subsequen t encounter 08/20/2017 08/18/2018 Muscle weakness 12/22/2016 08/18/2018 Closed dislocation of hip, unspecified site 08/0 08/201411/30/2014 Other joint derangement, not elsewhere classified, unspecified site 09/15/2014 11/30/2014 Mammographic microcalcificat ion found on diagnostic imaging of breast 09/13/2014 02/18/2019 Pain in joint, pelvic region and thigh 1 11/30/2014 NEVUS///BENIGN ANGELLA SKIN FACE NEC 12/18/2006 08/18/2018 NEVUS BACK/ABD.//BENIGN ANGELLA SKIN TRUNK 7 08/18/2018 Synovitis and tenosynovitis in diseases classifi ed elsewhere 06/27/2005 02/18/2019 Mitral valve disorders(424.0) Type II or unspecified type diabetes mellitus without mention of complication, uncontrolled 05/20/2009 Myalgia and myositis, unspecified 06/24/2013 Generalized osteoarthrosis, unspecified site 08/18/2018 documented as of this encounter (statuses as of 03/27/2022) [facility] History of Past illness Narrative* Problem Noted Date Resolved Date Neck pain, chronic 01/29/2018 08/18/2018 Overview: Added automatically from request for surgery [id number] Neck pain on left side 01/08/2018 9 Radiculopathy, lumbar region 12/01/201711/2019 Tear of medial meniscus of right knee, subsequen t encounter 08/20/2017 08/18/2018 Muscle weakness 12/22/2016 08/18/2018 Closed dislocation of hip, unspecified site 08/0 08/201411/30/2014 Other joint derangement, not elsewhere classified, unspecified site 09/15/2014 11/30/2014 Mammographic microcalcificat ion found on diagnostic imaging of breast 09/13/2014 02/18/2019 Pain in joint, pelvic region and thigh 1 11/30/2014 NEVUS///BENIGN ANGELLA SKIN FACE NEC 12/18/2006 08/18/2018 NEVUS BACK/ABD.//BENIGN ANGELLA SKIN TRUNK 7 08/18/2018 Synovitis and tenosynovitis in diseases classifi ed elsewhere 06/27/2005 02/18/2019 Mitral valve disorders(424.0) Type II or unspecified type diabetes mellitus without mention of complication, uncontrolled 05/20/2009 Myalgia and myositis, unspecified 06/24/2013 Generalized osteoarthrosis, unspecified site 08/18/2018 documented as of this encounter (statuses as of 03/27/2022) [facility] History of Past illness Narrative* Problem Noted Date Resolved Date Neck pain, chronic 01/29/2018 08/18/2018 Overview: Added automatically from request for surgery [id number] Neck pain on left side 01/08/2018 9 Radiculopathy, lumbar region 12/01/201711/2019 Tear of medial meniscus of right knee, subsequen t encounter 08/20/2017 08/18/2018 Muscle weakness 12/22/2016 08/18/2018 Closed dislocation of hip, unspecified site 08/08/201411/30/2014 Other joint derangement, not elsewhere classified, unspecified site 09/15/2014 11/30/2014 Mammographic microcalcificat ion found on diagnostic imaging of breast 09/13/2014 02/18/2019 Pain in joint, pelvic region and thigh 1 11/30/2014 NEVUS///BENIGN ANGELLA SKIN FACE NEC 12/18/2006 08/18/2018 NEVUS BACK/ABD.//BENIGN ANGELLA SKIN TRUNK 7 08/18/2018 Synovitis and tenosynovitis in diseases classifi ed elsewhere 06/27/2005 02/18/2019 Mitral valve disorders(424.0) Type II or unspecified type diabetes mellitus without mention of complication, uncontrolled 05/20/2009 Myalgia and myositis, unspecified 06/24/2013 Generalized osteoarthrosis, unspecified site 08/18/2018 documented as of this encounter (statuses as of 04/01/2022) [facility] History of Past illness Narrative* Problem Noted Date Resolved Date Neck pain, chronic 01/29/2018 08/18/2018 Overview: Added automatically from request for surgery [id number] Neck pain on left side 01/08/2018 9 Radiculopathy, lumbar region 12/01/201711/2019 Tear of medial meniscus of right knee, subsequen t encounter 08/20/2017 08/18/2018 Muscle weakness 12/22/2016 08/18/2018 Closed dislocation of hip, unspecified site 08/201411/30/2014 Other joint derangement, not elsewhere classified, unspecified site 09/15/2014 11/30/2014 Mammographic microcalcificat ion found on diagnostic imaging of breast 09/13/2014 02/18/2019 Pain in joint, pelvic region and thigh 1 11/30/2014 NEVUS///BENIGN ANGELLA SKIN FACE NEC 12/18/2006 08/18/2018 NEVUS BACK/ABD.//BENIGN ANGELLA SKIN TRUNK 7 08/18/2018 Synovitis and tenosynovitis in diseases classifi ed elsewhere 06/27/2005 02/18/2019 Mitral valve disorders(424.0) Type II or unspecified type diabetes mellitus without mention of complication, uncontrolled 05/20/2009 Myalgia and myositis, unspecified 06/24/2013 Generalized osteoarthrosis, unspecified site 08/18/2018 documented as of this encounter (statuses as of 04/02/2022) [facility]12-21-2018 History of Past illness Narrative* Problem Noted Date Resolved Date Neck pain, chronic 01/29/2018 08/18/2018 Overview: Added automatically from request for surgery [id number] Neck pain on left side 01/08/2018 9 Radiculopathy, lumbar region 12/01/201711/2019 Tear of medial meniscus of right knee, subsequen t encounter 08/20/2017 08/18/2018 Muscle weakness 12/22/2016 08/18/2018 Closed dislocation of hip, unspecified site 08/0 08/201411/30/2014 Other joint derangement, not elsewhere classified, unspecified site 09/15/2014 11/30/2014 Mammographic microcalcificat ion found on diagnostic imaging of breast 09/13/2014 02/18/2019 Pain in joint, pelvic region and thigh 1 11/30/2014 NEVUS///BENIGN ANGELLA SKIN FACE NEC 12/18/2006 08/18/2018 NEVUS BACK/ABD.//BENIGN ANGELLA SKIN TRUNK 7 08/18/2018 Synovitis and tenosynovitis in diseases classifi ed elsewhere 06/27/2005 02/18/2019 Mitral valve disorders(424.0) Type II or unspecified type diabetes mellitus without mention of complication, uncontrolled 05/20/2009 Myalgia and myositis, unspecified 06/24/2013 Generalized osteoarthrosis, unspecified site 08/18/2018 documented as of this encounter (statuses as of 04/11/2022) [facility]12[facility]2018 History of Past illness Narrative* Problem Noted Date Resolved Date Neck pain, chronic 01/29/2018 08/18/2018 Overview: Added automatically from request for surgery [id number] Neck pain on left side 01/08/2018 9 Radiculopathy, lumbar region 12/01/201711/2019 Tear of medial meniscus of right knee, subsequen t encounter 08/20/2017 08/18/2018 Muscle weakness 12/22/2016 08/18/2018 Closed dislocation of hip, unspecified site 08/0 08/201411/30/2014 Other joint derangement, not elsewhere classified, unspecified site 09/15/2014 11/30/2014 Mammographic microcalcificat ion found on diagnostic imaging of breast 09/13/2014 02/18/2019 Pain in joint, pelvic region and thigh 1 11/30/2014 NEVUS///BENIGN ANGELLA SKIN FACE NEC 12/18/2006 08/18/2018 NEVUS BACK/ABD.//BENIGN ANGELLA SKIN TRUNK 7 08/18/2018 Synovitis and tenosynovitis in diseases classifi ed elsewhere 06/27/2005 02/18/2019 Mitral valve disorders(424.0) Type II or unspecified type diabetes mellitus without mention of complication, uncontrolled 05/20/2009 Myalgia and myositis, unspecified 06/24/2013 Generalized osteoarthrosis, unspecified site 08/18/2018 documented as of this encounter (statuses as of 04/11/2022) [facility] History of Past illness Narrative* Problem Noted Date Resolved Date Neck pain, chronic 01/29/2018 08/18/2018 Overview: Added automatically from request for surgery [id number] Neck pain on left side 01/08/2018 9 Radiculopathy, lumbar region 12/01/201711/2019 Tear of medial meniscus of right knee, subsequen t encounter 08/20/2017 08/18/2018 Muscle weakness 12/22/2016 08/18/2018 Closed dislocation of hip, unspecified site 08/201411/30/2014 Other joint derangement, not elsewhere classified, unspecified site 09/15/2014 11/30/2014 Mammographic microcalcificat ion found on diagnostic imaging of breast 09/13/2014 02/18/2019 Pain in joint, pelvic region and thigh 1 11/30/2014 NEVUS///BENIGN ANGELLA SKIN FACE NEC 12/18/2006 08/18/2018 NEVUS BACK/ABD.//BENIGN ANGELLA SKIN TRUNK 7 08/18/2018 Synovitis and tenosynovitis in diseases classifi ed elsewhere 06/27/2005 02/18/2019 Mitral valve disorders(424.0) Type II or unspecified type diabetes mellitus without mention of complication, uncontrolled 05/20/2009 Myalgia and myositis, unspecified 06/24/2013 Generalized osteoarthrosis, unspecified site 08/18/2018 documented as of this encounter (statuses as of 04/11/2022) [facility] History of Past illness Narrative* Problem Noted Date Resolved Date Neck pain, chronic 01/29/2018 08/18/2018 Overview: Added automatically from request for surgery [id number] Neck pain on left side 01/08/2018 9 Radiculopathy, lumbar region 12/01/201711/2019 Tear of medial meniscus of right knee, subsequen t encounter 08/20/2017 08/18/2018 Muscle weakness 12/22/2016 08/18/2018 Closed dislocation of hip, unspecified site 08/0 08/201411/30/2014 Other joint derangement, not elsewhere classified, unspecified site 09/15/2014 11/30/2014 Mammographic microcalcificat ion found on diagnostic imaging of breast 09/13/2014 02/18/2019 Pain in joint, pelvic region and thigh 1 11/30/2014 NEVUS///BENIGN ANGELLA SKIN FACE NEC 12/18/2006 08/18/2018 NEVUS BACK/ABD.//BENIGN ANGELLA SKIN TRUNK 7 08/18/2018 Synovitis and tenosynovitis in diseases classifi ed elsewhere 06/27/2005 02/18/2019 Mitral valve disorders(424.0) Type II or unspecified type diabetes mellitus without mention of complication, uncontrolled 05/20/2009 Myalgia and myositis, unspecified 06/24/2013 Generalized osteoarthrosis, unspecified site 08/18/2018 documented as of this encounter (statuses as of 04/25/2022) [facility] History of Past illness Narrative* Problem Noted Date Resolved Date Neck pain, chronic 01/29/2018 08/18/2018 Overview: Added automatically from request for surgery [id number] Neck pain on left side 01/08/2018 9 Radiculopathy, lumbar region 12/01/201711/2019 Tear of medial meniscus of right knee, subsequen t encounter 08/20/2017 08/18/2018 Muscle weakness 12/22/2016 08/18/2018 Closed dislocation of hip, unspecified site 08/0 08/201411/30/2014 Other joint derangement, not elsewhere classified, unspecified site 09/15/2014 11/30/2014 Mammographic microcalcificat ion found on diagnostic imaging of breast 09/13/2014 02/18/2019 Pain in joint, pelvic region and thigh 1 11/30/2014 NEVUS///BENIGN ANGELLA SKIN FACE NEC 12/18/2006 08/18/2018 NEVUS BACK/ABD.//BENIGN ANGELLA SKIN TRUNK 7 08/18/2018 Synovitis and tenosynovitis in diseases classifi ed elsewhere 06/27/2005 02/18/2019 Mitral valve disorders(424.0) Type II or unspecified type diabetes mellitus without mention of complication, uncontrolled 05/20/2009 Myalgia and myositis, unspecified 06/24/2013 Generalized osteoarthrosis, unspecified site 08/18/2018 documented as of this encounter (statuses as of 04/29/2022) [facility] History of Past illness Narrative* Problem Noted Date Resolved Date Neck pain, chronic 01/29/2018 08/18/2018 Overview: Added automatically from request for surgery [id number] Neck pain on left side 01/08/2018 9 Radiculopathy, lumbar region 12/01/201711/2019 Tear of medial meniscus of right knee, subsequen t encounter 08/20/2017 08/18/2018 Muscle weakness 12/22/2016 08/18/2018 Closed dislocation of hip, unspecified site 08/201411/30/2014 Other joint derangement, not elsewhere classified, unspecified site 09/15/2014 11/30/2014 Mammographic microcalcificat ion found on diagnostic imaging of breast 09/13/2014 02/18/2019 Pain in joint, pelvic region and thigh 1 11/30/2014 NEVUS///BENIGN ANGELLA SKIN FACE NEC 12/18/2006 08/18/2018 NEVUS BACK/ABD.//BENIGN ANGELLA SKIN TRUNK 7 08/18/2018 Synovitis and tenosynovitis in diseases classifi ed elsewhere 06/27/2005 02/18/2019 Mitral valve disorders(424.0) Type II or unspecified type diabetes mellitus without mention of complication, uncontrolled 05/20/2009 Myalgia and myositis, unspecified 06/24/2013 Generalized osteoarthrosis, unspecified site 08/18/2018 documented as of this encounter (statuses as of 04/29/2022) [facility] History of Past illness Narrative* Problem Noted Date Resolved Date Neck pain, chronic 01/29/2018 08/18/2018 Overview: Added automatically from request for surgery [id number] Neck pain on left side 01/08/2018 9 Radiculopathy, lumbar region 12/01/201711/2019 Tear of medial meniscus of right knee, subsequen t encounter 08/20/2017 08/18/2018 Muscle weakness 12/22/2016 08/18/2018 Closed dislocation of hip, unspecified site 08/0 08/201411/30/2014 Other joint derangement, not elsewhere classified, unspecified site 09/15/2014 11/30/2014 Mammographic microcalcificat ion found on diagnostic imaging of breast 09/13/2014 02/18/2019 Pain in joint, pelvic region and thigh 1 11/30/2014 NEVUS///BENIGN ANGELLA SKIN FACE NEC 12/18/2006 08/18/2018 NEVUS BACK/ABD.//BENIGN ANGELLA SKIN TRUNK 7 08/18/2018 Synovitis and tenosynovitis in diseases classifi ed elsewhere 06/27/2005 02/18/2019 Mitral valve disorders(424.0) Type II or unspecified type diabetes mellitus without mention of complication, uncontrolled 05/20/2009 Myalgia and myositis, unspecified 06/24/2013 Generalized osteoarthrosis, unspecified site 08/18/2018 documented as of this encounter (statuses as of 05/05/2022) [facility] History of Past illness Narrative* Problem Noted Date Resolved Date Neck pain, chronic 01/29/2018 08/18/2018 Overview: Added automatically from request for surgery [id number] Neck pain on left side 01/08/2018 9 Radiculopathy, lumbar region 12/01/201711/2019 Tear of medial meniscus of right knee, subsequen t encounter 08/20/2017 08/18/2018 Muscle weakness 12/22/2016 08/18/2018 Closed dislocation of hip, unspecified site 08/0 08/201411/30/2014 Other joint derangement, not elsewhere classified, unspecified site 09/15/2014 11/30/2014 Mammographic microcalcificat ion found on diagnostic imaging of breast 09/13/2014 02/18/2019 Pain in joint, pelvic region and thigh 1 11/30/2014 NEVUS///BENIGN ANGELLA SKIN FACE NEC 12/18/2006 08/18/2018 NEVUS BACK/ABD.//BENIGN ANGELLA SKIN TRUNK 7 08/18/2018 Synovitis and tenosynovitis in diseases classifi ed elsewhere 06/27/2005 02/18/2019 Mitral valve disorders(424.0) Type II or unspecified type diabetes mellitus without mention of complication, uncontrolled 05/20/2009 Myalgia and myositis, unspecified 06/24/2013 Generalized osteoarthrosis, unspecified site 08/18/2018 documented as of this encounter (statuses as of 05/07/2022) [facility] History of Past illness Narrative* Problem Noted Date Resolved Date Neck pain, chronic 01/29/2018 08/18/2018 Overview: Added automatically from request for surgery [id number] Neck pain on left side 01/08/2018 9 Radiculopathy, lumbar region 12/01/201711/2019 Tear of medial meniscus of right knee, subsequen t encounter 08/20/2017 08/18/2018 Muscle weakness 12/22/2016 08/18/2018 Closed dislocation of hip, unspecified site 08/08/201411/30/2014 Other joint derangement, not elsewhere classified, unspecified site 09/15/2014 11/30/2014 Mammographic microcalcificat ion found on diagnostic imaging of breast 09/13/2014 02/18/2019 Pain in joint, pelvic region and thigh 1 11/30/2014 NEVUS///BENIGN ANGELLA SKIN FACE NEC 12/18/2006 08/18/2018 NEVUS BACK/ABD.//BENIGN ANGELLA SKIN TRUNK 7 08/18/2018 Synovitis and tenosynovitis in diseases classifi ed elsewhere 06/27/2005 02/18/2019 Mitral valve disorders(424.0) Type II or unspecified type diabetes mellitus without mention of complication, uncontrolled 05/20/2009 Myalgia and myositis, unspecified 06/24/2013 Generalized osteoarthrosis, unspecified site 08/18/2018 documented as of this encounter (statuses as of 05/09/2022) [facility] History of Past illness Narrative* Problem Noted Date Resolved Date Neck pain, chronic 01/29/2018 08/18/2018 Overview: Added automatically from request for surgery [id number] Neck pain on left side 01/08/2018 9 Radiculopathy, lumbar region 12/01/201711/2019 Tear of medial meniscus of right knee, subsequen t encounter 08/20/2017 08/18/2018 Muscle weakness 12/22/2016 08/18/2018 Closed dislocation of hip, unspecified site 08/201411/30/2014 Other joint derangement, not elsewhere classified, unspecified site 09/15/2014 11/30/2014 Mammographic microcalcificat ion found on diagnostic imaging of breast 09/13/2014 02/18/2019 Pain in joint, pelvic region and thigh 1 11/30/2014 NEVUS///BENIGN ANGELLA SKIN FACE NEC 12/18/2006 08/18/2018 NEVUS BACK/ABD.//BENIGN ANGELLA SKIN TRUNK 7 08/18/2018 Synovitis and tenosynovitis in diseases classifi ed elsewhere 06/27/2005 02/18/2019 Mitral valve disorders(424.0) Type II or unspecified type diabetes mellitus without mention of complication, uncontrolled 05/20/2009 Myalgia and myositis, unspecified 06/24/2013 Generalized osteoarthrosis, unspecified site 08/18/2018 documented as of this encounter (statuses as of 05/14/2022) [facility] History of Past illness Narrative* Problem Noted Date Resolved Date Neck pain, chronic 01/29/2018 08/18/2018 Overview: Added automatically from request for surgery [id number] Neck pain on left side 01/08/2018 9 Radiculopathy, lumbar region 12/01/201711/2019 Tear of medial meniscus of right knee, subsequen t encounter 08/20/2017 08/18/2018 Muscle weakness 12/22/2016 08/18/2018 Closed dislocation of hip, unspecified site 08/0 08/201411/30/2014 Other joint derangement, not elsewhere classified, unspecified site 09/15/2014 11/30/2014 Mammographic microcalcificat ion found on diagnostic imaging of breast 09/13/2014 02/18/2019 Pain in joint, pelvic region and thigh 1 11/30/2014 NEVUS///BENIGN ANGELLA SKIN FACE NEC 12/18/2006 08/18/2018 NEVUS BACK/ABD.//BENIGN ANGELLA SKIN TRUNK 7 08/18/2018 Synovitis and tenosynovitis in diseases classifi ed elsewhere 06/27/2005 02/18/2019 Mitral valve disorders(424.0) Type II or unspecified type diabetes mellitus without mention of complication, uncontrolled 05/20/2009 Myalgia and myositis, unspecified 06/24/2013 Generalized osteoarthrosis, unspecified site 08/18/2018 documented as of this encounter (statuses as of 05/26/2022) [facility] History of Past illness Narrative* Problem Noted Date Resolved Date Neck pain, chronic 01/29/2018 08/18/2018 Overview: Added automatically from request for surgery [id number] Neck pain on left side 01/08/2018 9 Radiculopathy, lumbar region 12/01/201711/2019 Tear of medial meniscus of right knee, subsequen t encounter 08/20/2017 08/18/2018 Muscle weakness 12/22/2016 08/18/2018 Closed dislocation of hip, unspecified site 08/0 08/201411/30/2014 Other joint derangement, not elsewhere classified, unspecified site 09/15/2014 11/30/2014 Mammographic microcalcificat ion found on diagnostic imaging of breast 09/13/2014 02/18/2019 Pain in joint, pelvic region and thigh 1 11/30/2014 NEVUS///BENIGN ANGELLA SKIN FACE NEC 12/18/2006 08/18/2018 NEVUS BACK/ABD.//BENIGN ANGELLA SKIN TRUNK 7 08/18/2018 Synovitis and tenosynovitis in diseases classifi ed elsewhere 06/27/2005 02/18/2019 Mitral valve disorders(424.0) Type II or unspecified type diabetes mellitus without mention of complication, uncontrolled 05/20/2009 Myalgia and myositis, unspecified 06/24/2013 Generalized osteoarthrosis, unspecified site 08/18/2018 documented as of this encounter (statuses as of 05/30/2022) [facility] History of Past illness Narrative* Problem Noted Date Resolved Date Neck pain, chronic 01/29/2018 08/18/2018 Overview: Added automatically from request for surgery [id number] Neck pain on left side 01/08/2018 9 Radiculopathy, lumbar region 12/01/201711/2019 Tear of medial meniscus of right knee, subsequen t encounter 08/20/2017 08/18/2018 Muscle weakness 12/22/2016 08/18/2018 Closed dislocation of hip, unspecified site 08/201411/30/2014 Other joint derangement, not elsewhere classified, unspecified site 09/15/2014 11/30/2014 Mammographic microcalcificat ion found on diagnostic imaging of breast 09/13/2014 02/18/2019 Pain in joint, pelvic region and thigh 1 11/30/2014 NEVUS///BENIGN ANGELLA SKIN FACE NEC 12/18/2006 08/18/2018 NEVUS BACK/ABD.//BENIGN ANGELLA SKIN TRUNK 7 08/18/2018 Synovitis and tenosynovitis in diseases classifi ed elsewhere 06/27/2005 02/18/2019 Mitral valve disorders(424.0) Type II or unspecified type diabetes mellitus without mention of complication, uncontrolled 05/20/2009 Myalgia and myositis, unspecified 06/24/2013 Generalized osteoarthrosis, unspecified site 08/18/2018 documented as of this encounter (statuses as of 06/02/2022) [facility] History of Past illness Narrative* Problem Noted Date Resolved Date Neck pain, chronic 01/29/2018 08/18/2018 Overview: Added automatically from request for surgery [id number] Neck pain on left side 01/08/2018 9 Radiculopathy, lumbar region 12/01/201711/2019 Tear of medial meniscus of right knee, subsequen t encounter 08/20/2017 08/18/2018 Muscle weakness 12/22/2016 08/18/2018 Closed dislocation of hip, unspecified site 08/0 08/201411/30/2014 Other joint derangement, not elsewhere classified, unspecified site 09/15/2014 11/30/2014 Mammographic microcalcificat ion found on diagnostic imaging of breast 09/13/2014 02/18/2019 Pain in joint, pelvic region and thigh 1 11/30/2014 NEVUS///BENIGN ANGELLA SKIN FACE NEC 12/18/2006 08/18/2018 NEVUS BACK/ABD.//BENIGN ANGELLA SKIN TRUNK 7 08/18/2018 Synovitis and tenosynovitis in diseases classifi ed elsewhere 06/27/2005 02/18/2019 Mitral valve disorders(424.0) Type II or unspecified type diabetes mellitus without mention of complication, uncontrolled 05/20/2009 Myalgia and myositis, unspecified 06/24/2013 Generalized osteoarthrosis, unspecified site 08/18/2018 documented as of this encounter (statuses as of 06/04/2022) [facility] History of Past illness Narrative* Problem Noted Date Resolved Date Neck pain, chronic 01/29/2018 08/18/2018 Overview: Added automatically from request for surgery [id number] Neck pain on left side 01/08/2018 9 Radiculopathy, lumbar region 12/01/201711/2019 Tear of medial meniscus of right knee, subsequen t encounter 08/20/2017 08/18/2018 Muscle weakness 12/22/2016 08/18/2018 Closed dislocation of hip, unspecified site 08/0 08/201411/30/2014 Other joint derangement, not elsewhere classified, unspecified site 09/15/2014 11/30/2014 Mammographic microcalcificat ion found on diagnostic imaging of breast 09/13/2014 02/18/2019 Pain in joint, pelvic region and thigh 1 11/30/2014 NEVUS///BENIGN ANGELLA SKIN FACE NEC 12/18/2006 08/18/2018 NEVUS BACK/ABD.//BENIGN ANGELLA SKIN TRUNK 7 08/18/2018 Synovitis and tenosynovitis in diseases classifi ed elsewhere 06/27/2005 02/18/2019 Mitral valve disorders(424.0) Type II or unspecified type diabetes mellitus without mention of complication, uncontrolled 05/20/2009 Myalgia and myositis, unspecified 06/24/2013 Generalized osteoarthrosis, unspecified site 08/18/2018 documented as of this encounter (statuses as of 06/12/2022) [facility] History of Past illness Narrative* Problem Noted Date Resolved Date Neck pain, chronic 01/29/2018 08/18/2018 Overview: Added automatically from request for surgery [id number] Neck pain on left side 01/08/2018 9 Radiculopathy, lumbar region 12/01/201711/2019 Tear of medial meniscus of right knee, subsequen t encounter 08/20/2017 08/18/2018 Muscle weakness 12/22/2016 08/18/2018 Closed dislocation of hip, unspecified site 08/201411/30/2014 Other joint derangement, not elsewhere classified, unspecified site 09/15/2014 11/30/2014 Mammographic microcalcificat ion found on diagnostic imaging of breast 09/13/2014 02/18/2019 Pain in joint, pelvic region and thigh 1 11/30/2014 NEVUS///BENIGN ANGELLA SKIN FACE NEC 12/18/2006 08/18/2018 NEVUS BACK/ABD.//BENIGN ANGELLA SKIN TRUNK 7 08/18/2018 Synovitis and tenosynovitis in diseases classifi ed elsewhere 06/27/2005 02/18/2019 Mitral valve disorders(424.0) Type II or unspecified type diabetes mellitus without mention of complication, uncontrolled 05/20/2009 Myalgia and myositis, unspecified 06/24/2013 Generalized osteoarthrosis, unspecified site 08/18/2018 documented as of this encounter (statuses as of 07/08/2022) [facility] History of Past illness Narrative* Problem Noted Date Resolved Date Neck pain, chronic 01/29/2018 08/18/2018 Overview: Added automatically from request for surgery [id number] Neck pain on left side 01/08/2018 9 Radiculopathy, lumbar region 12/01/201711/2019 Tear of medial meniscus of right knee, subsequen t encounter 08/20/2017 08/18/2018 Muscle weakness 12/22/2016 08/18/2018 Closed dislocation of hip, unspecified site 08/0 08/201411/30/2014 Other joint derangement, not elsewhere classified, unspecified site 09/15/2014 11/30/2014 Mammographic microcalcificat ion found on diagnostic imaging of breast 09/13/2014 02/18/2019 Pain in joint, pelvic region and thigh 1 11/30/2014 NEVUS///BENIGN ANGELLA SKIN FACE NEC 12/18/2006 08/18/2018 NEVUS BACK/ABD.//BENIGN ANGELLA SKIN TRUNK 7 08/18/2018 Synovitis and tenosynovitis in diseases classifi ed elsewhere 06/27/2005 02/18/2019 Mitral valve disorders(424.0) Type II or unspecified type diabetes mellitus without mention of complication, uncontrolled 05/20/2009 Myalgia and myositis, unspecified 06/24/2013 Generalized osteoarthrosis, unspecified site 08/18/2018 documented as of this encounter (statuses as of 07/09/2022) [facility] History of Past illness Narrative* Problem Noted Date Resolved Date Neck pain, chronic 01/29/2018 08/18/2018 Overview: Added automatically from request for surgery [id number] Neck pain on left side 01/08/2018 9 Radiculopathy, lumbar region 12/01/201711/2019 Tear of medial meniscus of right knee, subsequen t encounter 08/20/2017 08/18/2018 Muscle weakness 12/22/2016 08/18/2018 Closed dislocation of hip, unspecified site 08/0 08/201411/30/2014 Other joint derangement, not elsewhere classified, unspecified site 09/15/2014 11/30/2014 Mammographic microcalcificat ion found on diagnostic imaging of breast 09/13/2014 02/18/2019 Pain in joint, pelvic region and thigh 1 11/30/2014 NEVUS///BENIGN ANGELLA SKIN FACE NEC 12/18/2006 08/18/2018 NEVUS BACK/ABD.//BENIGN ANGELLA SKIN TRUNK 7 08/18/2018 Synovitis and tenosynovitis in diseases classifi ed elsewhere 06/27/2005 02/18/2019 Mitral valve disorders(424.0) Type II or unspecified type diabetes mellitus without mention of complication, uncontrolled 05/20/2009 Myalgia and myositis, unspecified 06/24/2013 Generalized osteoarthrosis, unspecified site 08/18/2018 documented as of this encounter (statuses as of 07/22/2022) [facility] History of Past illness Narrative* Problem Noted Date Resolved Date Neck pain, chronic 01/29/2018 08/18/2018 Overview: Added automatically from request for surgery [id number] Neck pain on left side 01/08/2018 9 Radiculopathy, lumbar region 12/01/201711/2019 Tear of medial meniscus of right knee, subsequen t encounter 08/20/2017 08/18/2018 Muscle weakness 12/22/2016 08/18/2018 Closed dislocation of hip, unspecified site 08/08/201411/30/2014 Other joint derangement, not elsewhere classified, unspecified site 09/15/2014 11/30/2014 Mammographic microcalcificat ion found on diagnostic imaging of breast 09/13/2014 02/18/2019 Pain in joint, pelvic region and thigh 1 11/30/2014 NEVUS///BENIGN ANGELLA SKIN FACE NEC 12/18/2006 08/18/2018 NEVUS BACK/ABD.//BENIGN ANGELLA SKIN TRUNK 7 08/18/2018 Synovitis and tenosynovitis in diseases classifi ed elsewhere 06/27/2005 02/18/2019 Mitral valve disorders(424.0) Type II or unspecified type diabetes mellitus without mention of complication, uncontrolled 05/20/2009 Myalgia and myositis, unspecified 06/24/2013 Generalized osteoarthrosis, unspecified site 08/18/2018 documented as of this encounter (statuses as of 08/01/2022) [facility] History of Past illness Narrative* Problem Noted Date Resolved Date Neck pain, chronic 01/29/2018 08/18/2018 Overview: Added automatically from request for surgery [id number] Neck pain on left side 01/08/2018 9 Radiculopathy, lumbar region 12/01/201711/2019 Tear of medial meniscus of right knee, subsequen t encounter 08/20/2017 08/18/2018 Muscle weakness 12/22/2016 08/18/2018 Closed dislocation of hip, unspecified site 08/201411/30/2014 Other joint derangement, not elsewhere classified, unspecified site 09/15/2014 11/30/2014 Mammographic microcalcificat ion found on diagnostic imaging of breast 09/13/2014 02/18/2019 Pain in joint, pelvic region and thigh 1 11/30/2014 NEVUS///BENIGN ANGELLA SKIN FACE NEC 12/18/2006 08/18/2018 NEVUS BACK/ABD.//BENIGN ANGELLA SKIN TRUNK 7 08/18/2018 Synovitis and tenosynovitis in diseases classifi ed elsewhere 06/27/2005 02/18/2019 Mitral valve disorders(424.0) Type II or unspecified type diabetes mellitus without mention of complication, uncontrolled 05/20/2009 Myalgia and myositis, unspecified 06/24/2013 Generalized osteoarthrosis, unspecified site 08/18/2018 documented as of this encounter (statuses as of 08/06/2022) [facility]12-21-2018 History of Past illness Narrative* Problem Noted Date Resolved Date Neck pain, chronic 01/29/2018 08/18/2018 Overview: Added automatically from request for surgery [id number] Neck pain on left side 01/08/2018 9 Radiculopathy, lumbar region 12/01/201711/2019 Tear of medial meniscus of right knee, subsequen t encounter 08/20/2017 08/18/2018 Muscle weakness 12/22/2016 08/18/2018 Closed dislocation of hip, unspecified site 08/0 08/201411/30/2014 Other joint derangement, not elsewhere classified, unspecified site 09/15/2014 11/30/2014 Mammographic microcalcificat ion found on diagnostic imaging of breast 09/13/2014 02/18/2019 Pain in joint, pelvic region and thigh 1 11/30/2014 NEVUS///BENIGN ANGELLA SKIN FACE NEC 12/18/2006 08/18/2018 NEVUS BACK/ABD.//BENIGN ANGELLA SKIN TRUNK 7 08/18/2018 Synovitis and tenosynovitis in diseases classifi ed elsewhere 06/27/2005 02/18/2019 Mitral valve disorders(424.0) Type II or unspecified type diabetes mellitus without mention of complication, uncontrolled 05/20/2009 Myalgia and myositis, unspecified 06/24/2013 Generalized osteoarthrosis, unspecified site 08/18/2018 documented as of this encounter (statuses as of 08/08/2022) [facility]12[facility]2018 History of Past illness Narrative* Problem Noted Date Resolved Date Neck pain, chronic 01/29/2018 08/18/2018 Overview: Added automatically from request for surgery [id number] Neck pain on left side 01/08/2018 9 Radiculopathy, lumbar region 12/01/201711/2019 Tear of medial meniscus of right knee, subsequen t encounter 08/20/2017 08/18/2018 Muscle weakness 12/22/2016 08/18/2018 Closed dislocation of hip, unspecified site 08/0 08/201411/30/2014 Other joint derangement, not elsewhere classified, unspecified site 09/15/2014 11/30/2014 Mammographic microcalcificat ion found on diagnostic imaging of breast 09/13/2014 02/18/2019 Pain in joint, pelvic region and thigh 1 11/30/2014 NEVUS///BENIGN ANGELLA SKIN FACE NEC 12/18/2006 08/18/2018 NEVUS BACK/ABD.//BENIGN ANGELLA SKIN TRUNK 7 08/18/2018 Synovitis and tenosynovitis in diseases classifi ed elsewhere 06/27/2005 02/18/2019 Mitral valve disorders(424.0) Type II or unspecified type diabetes mellitus without mention of complication, uncontrolled 05/20/2009 Myalgia and myositis, unspecified 06/24/2013 Generalized osteoarthrosis, unspecified site 08/18/2018 documented as of this encounter (statuses as of 08/11/2022) [facility] History of Past illness Narrative* Problem Noted Date Resolved Date Neck pain, chronic 01/29/2018 08/18/2018 Overview: Added automatically from request for surgery [id number] Neck pain on left side 01/08/2018 9 Radiculopathy, lumbar region 12/01/201711/2019 Tear of medial meniscus of right knee, subsequen t encounter 08/20/2017 08/18/2018 Muscle weakness 12/22/2016 08/18/2018 Closed dislocation of hip, unspecified site 08/201411/30/2014 Other joint derangement, not elsewhere classified, unspecified site 09/15/2014 11/30/2014 Mammographic microcalcificat ion found on diagnostic imaging of breast 09/13/2014 02/18/2019 Pain in joint, pelvic region and thigh 1 11/30/2014 NEVUS///BENIGN ANGELLA SKIN FACE NEC 12/18/2006 08/18/2018 NEVUS BACK/ABD.//BENIGN ANGELLA SKIN TRUNK 7 08/18/2018 Synovitis and tenosynovitis in diseases classifi ed elsewhere 06/27/2005 02/18/2019 Mitral valve disorders(424.0) Type II or unspecified type diabetes mellitus without mention of complication, uncontrolled 05/20/2009 Myalgia and myositis, unspecified 06/24/2013 Generalized osteoarthrosis, unspecified site 08/18/2018 documented as of this encounter (statuses as of 08/12/2022) [facility] History of Past illness Narrative* Problem Noted Date Resolved Date Neck pain, chronic 01/29/2018 08/18/2018 Overview: Added automatically from request for surgery [id number] Neck pain on left side 01/08/2018 9 Radiculopathy, lumbar region 12/01/201711/2019 Tear of medial meniscus of right knee, subsequen t encounter 08/20/2017 08/18/2018 Muscle weakness 12/22/2016 08/18/2018 Closed dislocation of hip, unspecified site 0808/201411/30/2014 Other joint derangement, not elsewhere classified, unspecified site 09/15/2014 11/30/2014 Mammographic microcalcificat ion found on diagnostic imaging of breast 09/13/2014 02/18/2019 Pain in joint, pelvic region and thigh 1 11/30/2014 NEVUS///BENIGN ANGELLA SKIN FACE NEC 12/18/2006 08/18/2018 NEVUS BACK/ABD.//BENIGN ANGELLA SKIN TRUNK 7 08/18/2018 Synovitis and tenosynovitis in diseases classifi ed elsewhere 06/27/2005 02/18/2019 Mitral valve disorders(424.0) Type II or unspecified type diabetes mellitus without mention of complication, uncontrolled 05/20/2009 Myalgia and myositis, unspecified 06/24/2013 Generalized osteoarthrosis, unspecified site 08/18/2018 documented as of this encounter (statuses as of 08/13/2022) [facility] History of Past illness Narrative* Problem Noted Date Diagnosed Date Resolved Date Neck pain, chronic 01/29/2018 9 Overview: Added automatically from request for surgery [id number] Neck pain on left side 01/08/201808/18 Radiculopathy, lumbar region 12/01/2017 02/18/2019 Tear of medial meniscus of r ight knee, subsequent encounter 08/20/2017 08/18/2018 Muscle weakness 12/22/2016 08/18/2018 Closed dislocation of hip, unspecified site 09/15/2014 11/30/2014 Other joint derangement, not elsewhere classified, unspecified site 09/15/2014 11/30/2014 Mammographic microcalcificat ion found on diagnostic imaging of breast 09/13/2014 02/18/2019 Pain in joint, pelvic region and thigh 04/15/2010 11/30/2014 NEVUS///BENIGN ANGELLA SKIN FACE NEC 12/18/2006 08/18/2018 NEVUS BACK/ABD.//BENIGN ANGELLA SKIN TRUNK 12/18/2006 08/18/2018 Synovitis and tenosynovitis in diseases classified elsewhere 06/27/2005 02/18/2019 Mitral valve disorders(424.0) 06/24/2013 Type II or unspecified type diabetes mellitus without mention of complication, uncontrolled 05/20/2009 Myalgia and myositis, unspecified 06/24/2013 Generalized osteoarthrosis, unspecified site 08/18/2018 documented as of this encounter (statuses as of 08/25/2022) [facility] History of Past illness Narrative* Problem Noted Date Diagnosed Date Resolved Date Neck pain, chronic 01/29/2018 9 Overview: Added automatically from request for surgery [id number] Neck pain on left side 01/08/201808/18 Radiculopathy, lumbar region 12/01/2017 02/18/2019 Tear of medial meniscus of r ight knee, subsequent encounter 08/20/2017 08/18/2018 Muscle weakness 12/22/2016 08/18/2018 Closed dislocation of hip, unspecified site 09/15/2014 11/30/2014 Other joint derangement, not elsewhere classified, unspecified site 09/15/2014 11/30/2014 Mammographic microcalcificat ion found on diagnostic imaging of breast 09/13/2014 02/18/2019 Pain in joint, pelvic region and thigh 04/15/2010 11/30/2014 NEVUS///BENIGN ANGELLA SKIN FACE NEC 12/18/2006 08/18/2018 NEVUS BACK/ABD.//BENIGN ANGELLA SKIN TRUNK 12/18/2006 08/18/2018 Synovitis and tenosynovitis in diseases classified elsewhere 06/27/2005 02/18/2019 Mitral valve disorders(424.0) 06/24/2013 Type II or unspecified type diabetes mellitus without mention of complication, uncontrolled 05/20/2009 Myalgia and myositis, unspecified 06/24/2013 Generalized osteoarthrosis, unspecified site 08/18/2018 documented as of this encounter (statuses as of 09/26/2022) [facility] History of Past illness Narrative* Problem Noted Date Diagnosed Date Resolved Date Neck pain, chronic 01/29/2018 9 Overview: Added automatically from request for surgery [id number] Neck pain on left side 01/08/201808/18 Radiculopathy, lumbar region 12/01/2017 02/18/2019 Tear of medial meniscus of r ight knee, subsequent encounter 08/20/2017 08/18/2018 Muscle weakness 12/22/2016 08/18/2018 Closed dislocation of hip, unspecified site 09/15/2014 11/30/2014 Other joint derangement, not elsewhere classified, unspecified site 09/15/2014 11/30/2014 Mammographic microcalcificat ion found on diagnostic imaging of breast 09/13/2014 02/18/2019 Pain in joint, pelvic region and thigh 04/15/2010 11/30/2014 NEVUS///BENIGN ANGELLA SKIN FACE NEC 12/18/2006 08/18/2018 NEVUS BACK/ABD.//BENIGN ANGELLA SKIN TRUNK 12/18/2006 08/18/2018 Synovitis and tenosynovitis in diseases classified elsewhere 06/27/2005 02/18/2019 Mitral valve disorders(424.0) 06/24/2013 Type II or unspecified type diabetes mellitus without mention of complication, uncontrolled 05/20/2009 Myalgia and myositis, unspecified 06/24/2013 Generalized osteoarthrosis, unspecified site 08/18/2018 documented as of this encounter (statuses as of 09/26/2022) [facility] History of Past illness Narrative* Problem Noted Date Diagnosed Date Resolved Date Neck pain, chronic 01/29/2018 9 Overview: Added automatically from request for surgery [id number] Neck pain on left side 01/08/201808/18 Radiculopathy, lumbar region 12/01/2017 02/18/2019 Tear of medial meniscus of r ight knee, subsequent encounter 08/20/2017 08/18/2018 Muscle weakness 12/22/2016 08/18/2018 Closed dislocation of hip, unspecified site 09/15/2014 11/30/2014 Other joint derangement, not elsewhere classified, unspecified site 09/15/2014 11/30/2014 Mammographic microcalcificat ion found on diagnostic imaging of breast 09/13/2014 02/18/2019 Pain in joint, pelvic region and thigh 04/15/2010 11/30/2014 NEVUS///BENIGN ANGELLA SKIN FACE NEC 12/18/2006 08/18/2018 NEVUS BACK/ABD.//BENIGN ANGELLA SKIN TRUNK 12/18/2006 08/18/2018 Synovitis and tenosynovitis in diseases classified elsewhere 06/27/2005 02/18/2019 Mitral valve disorders(424.0) 06/24/2013 Type II or unspecified type diabetes mellitus without mention of complication, uncontrolled 05/20/2009 Myalgia and myositis, unspecified 06/24/2013 Generalized osteoarthrosis, unspecified site 08/18/2018 documented as of this encounter (statuses as of 10/22/2022) [facility] History of Past illness Narrative* Problem Noted Date Diagnosed Date Resolved Date Neck pain, chronic 01/29/2018 9 Overview: Added automatically from request for surgery [id number] Neck pain on left side 01/08/201808/18 Radiculopathy, lumbar region 12/01/2017 02/18/2019 Tear of medial meniscus of r ight knee, subsequent encounter 08/20/2017 08/18/2018 Muscle weakness 12/22/2016 08/18/2018 Closed dislocation of hip, unspecified site 09/15/2014 11/30/2014 Other joint derangement, not elsewhere classified, unspecified site 09/15/2014 11/30/2014 Mammographic microcalcificat ion found on diagnostic imaging of breast 09/13/2014 02/18/2019 Pain in joint, pelvic region and thigh 04/15/2010 11/30/2014 NEVUS///BENIGN ANGELLA SKIN FACE NEC 12/18/2006 08/18/2018 NEVUS BACK/ABD.//BENIGN ANGELLA SKIN TRUNK 12/18/2006 08/18/2018 Synovitis and tenosynovitis in diseases classified elsewhere 06/27/2005 02/18/2019 Mitral valve disorders(424.0) 06/24/2013 Type II or unspecified type diabetes mellitus without mention of complication, uncontrolled 05/20/2009 Myalgia and myositis, unspecified 06/24/2013 Generalized osteoarthrosis, unspecified site 08/18/2018 documented as of this encounter (statuses as of 10/22/2022) [facility] History of Past illness Narrative* Problem Noted Date Diagnosed Date Resolved Date Neck pain, chronic 01/29/2018 9 Overview: Added automatically from request for surgery [id number] Neck pain on left side 01/08/201808/18 Radiculopathy, lumbar region 12/01/2017 02/18/2019 Tear of medial meniscus of r ight knee, subsequent encounter 08/20/2017 08/18/2018 Muscle weakness 12/22/2016 08/18/2018 Closed dislocation of hip, unspecified site 09/15/2014 11/30/2014 Other joint derangement, not elsewhere classified, unspecified site 09/15/2014 11/30/2014 Mammographic microcalcificat ion found on diagnostic imaging of breast 09/13/2014 02/18/2019 Pain in joint, pelvic region and thigh 04/15/2010 11/30/2014 NEVUS///BENIGN ANGELLA SKIN FACE NEC 12/18/2006 08/18/2018 NEVUS BACK/ABD.//BENIGN ANGELLA SKIN TRUNK 12/18/2006 08/18/2018 Synovitis and tenosynovitis in diseases classified elsewhere 06/27/2005 02/18/2019 Mitral valve disorders(424.0) 06/24/2013 Type II or unspecified type diabetes mellitus without mention of complication, uncontrolled 05/20/2009 Myalgia and myositis, unspecified 06/24/2013 Generalized osteoarthrosis, unspecified site 08/18/2018 documented as of this encounter (statuses as of 10/24/2022) [facility] History of Past illness Narrative* Problem Noted Date Diagnosed Date Resolved Date Neck pain, chronic 01/29/2018 9 Overview: Added automatically from request for surgery [id number] Neck pain on left side 01/08/201808/18 Radiculopathy, lumbar region 12/01/2017 02/18/2019 Tear of medial meniscus of r ight knee, subsequent encounter 08/20/2017 08/18/2018 Muscle weakness 12/22/2016 08/18/2018 Closed dislocation of hip, unspecified site 09/15/2014 11/30/2014 Other joint derangement, not elsewhere classified, unspecified site 09/15/2014 11/30/2014 Mammographic microcalcificat ion found on diagnostic imaging of breast 09/13/2014 02/18/2019 Pain in joint, pelvic region and thigh 04/15/2010 11/30/2014 NEVUS///BENIGN ANGELLA SKIN FACE NEC 12/18/2006 08/18/2018 NEVUS BACK/ABD.//BENIGN ANGELLA SKIN TRUNK 12/18/2006 08/18/2018 Synovitis and tenosynovitis in diseases classified elsewhere 06/27/2005 02/18/2019 Mitral valve disorders(424.0) 06/24/2013 Type II or unspecified type diabetes mellitus without mention of complication, uncontrolled 05/20/2009 Myalgia and myositis, unspecified 06/24/2013 Generalized osteoarthrosis, unspecified site 08/18/2018 documented as of this encounter (statuses as of 10/25/2022) [facility] History of Past illness Narrative* Problem Noted Date Diagnosed Date Resolved Date Neck pain, chronic 01/29/2018 9 Overview: Added automatically from request for surgery [id number] Neck pain on left side 01/08/201808/18 Radiculopathy, lumbar region 12/01/2017 02/18/2019 Tear of medial meniscus of r ight knee, subsequent encounter 08/20/2017 08/18/2018 Muscle weakness 12/22/2016 08/18/2018 Closed dislocation of hip, unspecified site 09/15/2014 11/30/2014 Other joint derangement, not elsewhere classified, unspecified site 09/15/2014 11/30/2014 Mammographic microcalcificat ion found on diagnostic imaging of breast 09/13/2014 02/18/2019 Pain in joint, pelvic region and thigh 04/15/2010 11/30/2014 NEVUS///BENIGN ANGELLA SKIN FACE NEC 12/18/2006 08/18/2018 NEVUS BACK/ABD.//BENIGN ANGELLA SKIN TRUNK 12/18/2006 08/18/2018 Synovitis and tenosynovitis in diseases classified elsewhere 06/27/2005 02/18/2019 Mitral valve disorders(424.0) 06/24/2013 Type II or unspecified type diabetes mellitus without mention of complication, uncontrolled 05/20/2009 Myalgia and myositis, unspecified 06/24/2013 Generalized osteoarthrosis, unspecified site 08/18/2018 documented as of this encounter (statuses as of 10/27/2022) [facility] History of Past illness Narrative* Problem Noted Date Diagnosed Date Resolved Date Neck pain, chronic 01/29/2018 9 Overview: Added automatically from request for surgery [id number] Neck pain on left side 01/08/201808/18 Radiculopathy, lumbar region 12/01/2017 02/18/2019 Tear of medial meniscus of r ight knee, subsequent encounter 08/20/2017 08/18/2018 Muscle weakness 12/22/2016 08/18/2018 Closed dislocation of hip, unspecified site 09/15/2014 11/30/2014 Other joint derangement, not elsewhere classified, unspecified site 09/15/2014 11/30/2014 Mammographic microcalcificat ion found on diagnostic imaging of breast 09/13/2014 02/18/2019 Pain in joint, pelvic region and thigh 04/15/2010 11/30/2014 NEVUS///BENIGN ANGELLA SKIN FACE NEC 12/18/2006 08/18/2018 NEVUS BACK/ABD.//BENIGN ANGELLA SKIN TRUNK 12/18/2006 08/18/2018 Synovitis and tenosynovitis in diseases classified elsewhere 06/27/2005 02/18/2019 Mitral valve disorders(424.0) 06/24/2013 Type II or unspecified type diabetes mellitus without mention of complication, uncontrolled 05/20/2009 Myalgia and myositis, unspecified 06/24/2013 Generalized osteoarthrosis, unspecified site 08/18/2018 documented as of this encounter (statuses as of 10/29/2022) [facility] History of Past illness Narrative* Problem Noted Date Diagnosed Date Resolved Date Neck pain, chronic 01/29/2018 9 Overview: Added automatically from request for surgery [id number] Neck pain on left side 01/08/201808/18 Radiculopathy, lumbar region 12/01/2017 02/18/2019 Tear of medial meniscus of r ight knee, subsequent encounter 08/20/2017 08/18/2018 Muscle weakness 12/22/2016 08/18/2018 Closed dislocation of hip, unspecified site 09/15/2014 11/30/2014 Other joint derangement, not elsewhere classified, unspecified site 09/15/2014 11/30/2014 Mammographic microcalcificat ion found on diagnostic imaging of breast 09/13/2014 02/18/2019 Pain in joint, pelvic region and thigh 04/15/2010 11/30/2014 NEVUS///BENIGN ANGELLA SKIN FACE NEC 12/18/2006 08/18/2018 NEVUS BACK/ABD.//BENIGN ANGELLA SKIN TRUNK 12/18/2006 08/18/2018 Synovitis and tenosynovitis in diseases classified elsewhere 06/27/2005 02/18/2019 Mitral valve disorders(424.0) 06/24/2013 Type II or unspecified type diabetes mellitus without mention of complication, uncontrolled 05/20/2009 Myalgia and myositis, unspecified 06/24/2013 Generalized osteoarthrosis, unspecified site 08/18/2018 documented as of this encounter (statuses as of 11/01/2022) [facility] History of Past illness Narrative* Problem Noted Date Diagnosed Date Resolved Date Neck pain, chronic 01/29/2018 9 Overview: Added automatically from request for surgery [id number] Neck pain on left side 01/08/201808/18 Radiculopathy, lumbar region 12/01/2017 02/18/2019 Tear of medial meniscus of r ight knee, subsequent encounter 08/20/2017 08/18/2018 Muscle weakness 12/22/2016 08/18/2018 Closed dislocation of hip, unspecified site 09/15/2014 11/30/2014 Other joint derangement, not elsewhere classified, unspecified site 09/15/2014 11/30/2014 Mammographic microcalcificat ion found on diagnostic imaging of breast 09/13/2014 02/18/2019 Pain in joint, pelvic region and thigh 04/15/2010 11/30/2014 NEVUS///BENIGN ANGELLA SKIN FACE NEC 12/18/2006 08/18/2018 NEVUS BACK/ABD.//BENIGN ANGELLA SKIN TRUNK 12/18/2006 08/18/2018 Synovitis and tenosynovitis in diseases classified elsewhere 06/27/2005 02/18/2019 Mitral valve disorders(424.0) 06/24/2013 Type II or unspecified type diabetes mellitus without mention of complication, uncontrolled 05/20/2009 Myalgia and myositis, unspecified 06/24/2013 Generalized osteoarthrosis, unspecified site 08/18/2018 documented as of this encounter (statuses as of 11/04/2022) [facility] History of Past illness Narrative* Problem Noted Date Diagnosed Date Resolved Date Neck pain, chronic 01/29/2018 9 Overview: Added automatically from request for surgery [id number] Neck pain on left side 01/08/201808/18 Radiculopathy, lumbar region 12/01/2017 02/18/2019 Tear of medial meniscus of r ight knee, subsequent encounter 08/20/2017 08/18/2018 Muscle weakness 12/22/2016 08/18/2018 Closed dislocation of hip, unspecified site 09/15/2014 11/30/2014 Other joint derangement, not elsewhere classified, unspecified site 09/15/2014 11/30/2014 Mammographic microcalcificat ion found on diagnostic imaging of breast 09/13/2014 02/18/2019 Pain in joint, pelvic region and thigh 04/15/2010 11/30/2014 NEVUS///BENIGN ANGELLA SKIN FACE NEC 12/18/2006 08/18/2018 NEVUS BACK/ABD.//BENIGN ANGELLA SKIN TRUNK 12/18/2006 08/18/2018 Synovitis and tenosynovitis in diseases classified elsewhere 06/27/2005 02/18/2019 Mitral valve disorders(424.0) 06/24/2013 Type II or unspecified type diabetes mellitus without mention of complication, uncontrolled 05/20/2009 Myalgia and myositis, unspecified 06/24/2013 Generalized osteoarthrosis, unspecified site 08/18/2018 documented as of this encounter (statuses as of 11/12/2022) [facility] History of Past illness Narrative* Problem Noted Date Diagnosed Date Resolved Date Neck pain, chronic 01/29/2018 9 Overview: Added automatically from request for surgery [id number] Neck pain on left side 01/08/201808/18 Radiculopathy, lumbar region 12/01/2017 02/18/2019 Tear of medial meniscus of r ight knee, subsequent encounter 08/20/2017 08/18/2018 Muscle weakness 12/22/2016 08/18/2018 Closed dislocation of hip, unspecified site 09/15/2014 11/30/2014 Other joint derangement, not elsewhere classified, unspecified site 09/15/2014 11/30/2014 Mammographic microcalcificat ion found on diagnostic imaging of breast 09/13/2014 02/18/2019 Pain in joint, pelvic region and thigh 04/15/2010 11/30/2014 NEVUS///BENIGN ANGELLA SKIN FACE NEC 12/18/2006 08/18/2018 NEVUS BACK/ABD.//BENIGN ANGELLA SKIN TRUNK 12/18/2006 08/18/2018 Synovitis and tenosynovitis in diseases classified elsewhere 06/27/2005 02/18/2019 Mitral valve disorders(424.0) 06/24/2013 Type II or unspecified type diabetes mellitus without mention of complication, uncontrolled 05/20/2009 Myalgia and myositis, unspecified 06/24/2013 Generalized osteoarthrosis, unspecified site 08/18/2018 documented as of this encounter (statuses as of 11/19/2022) [facility] History of Past illness Narrative* Problem Noted Date Diagnosed Date Resolved Date Neck pain, chronic 01/29/2018 9 Overview: Added automatically from request for surgery [id number] Neck pain on left side 01/08/201808/18 Radiculopathy, lumbar region 12/01/2017 02/18/2019 Tear of medial meniscus of r ight knee, subsequent encounter 08/20/2017 08/18/2018 Muscle weakness 12/22/2016 08/18/2018 Closed dislocation of hip, unspecified site 09/15/2014 11/30/2014 Other joint derangement, not elsewhere classified, unspecified site 09/15/2014 11/30/2014 Mammographic microcalcificat ion found on diagnostic imaging of breast 09/13/2014 02/18/2019 Pain in joint, pelvic region and thigh 04/15/2010 11/30/2014 NEVUS///BENIGN ANGELLA SKIN FACE NEC 12/18/2006 08/18/2018 NEVUS BACK/ABD.//BENIGN ANGELLA SKIN TRUNK 12/18/2006 08/18/2018 Synovitis and tenosynovitis in diseases classified elsewhere 06/27/2005 02/18/2019 Mitral valve disorders(424.0) 06/24/2013 Type II or unspecified type diabetes mellitus without mention of complication, uncontrolled 05/20/2009 Myalgia and myositis, unspecified 06/24/2013 Generalized osteoarthrosis, unspecified site 08/18/2018 documented as of this encounter (statuses as of 11/26/2022) [facility] History of Past illness Narrative* Problem Noted Date Diagnosed Date Resolved Date Neck pain, chronic 01/29/2018 9 Overview: Added automatically from request for surgery [id number] Neck pain on left side 01/08/201808/18 Radiculopathy, lumbar region 12/01/2017 02/18/2019 Tear of medial meniscus of r ight knee, subsequent encounter 08/20/2017 08/18/2018 Muscle weakness 12/22/2016 08/18/2018 Closed dislocation of hip, unspecified site 09/15/2014 11/30/2014 Other joint derangement, not elsewhere classified, unspecified site 09/15/2014 11/30/2014 Mammographic microcalcificat ion found on diagnostic imaging of breast 09/13/2014 02/18/2019 Pain in joint, pelvic region and thigh 04/15/2010 11/30/2014 NEVUS///BENIGN ANGELLA SKIN FACE NEC 12/18/2006 08/18/2018 NEVUS BACK/ABD.//BENIGN ANGELLA SKIN TRUNK 12/18/2006 08/18/2018 Synovitis and tenosynovitis in diseases classified elsewhere 06/27/2005 02/18/2019 Mitral valve disorders(424.0) 06/24/2013 Type II or unspecified type diabetes mellitus without mention of complication, uncontrolled 05/20/2009 Myalgia and myositis, unspecified 06/24/2013 Generalized osteoarthrosis, unspecified site 08/18/2018 documented as of this encounter (statuses as of 11/27/2022) [facility]12-[facility]2018 History of Past illness Narrative* Problem Noted Date Diagnosed Date Resolved Date Neck pain, chronic 01/29/2018 9 Overview: Added automatically from request for surgery [id number] Neck pain on left side 01/08/201808/18 Radiculopathy, lumbar region 12/01/2017 02/18/2019 Tear of medial meniscus of r ight knee, subsequent encounter 08/20/2017 08/18/2018 Muscle weakness 12/22/2016 08/18/2018 Closed dislocation of hip, unspecified site 09/15/2014 11/30/2014 Other joint derangement, not elsewhere classified, unspecified site 09/15/2014 11/30/2014 Mammographic microcalcificat ion found on diagnostic imaging of breast 09/13/2014 02/18/2019 Pain in joint, pelvic region and thigh 04/15/2010 11/30/2014 NEVUS///BENIGN ANGELLA SKIN FACE NEC 12/18/2006 08/18/2018 NEVUS BACK/ABD.//BENIGN ANGELLA SKIN TRUNK 12/18/2006 08/18/2018 Synovitis and tenosynovitis in diseases classified elsewhere 06/27/2005 02/18/2019 Mitral valve disorders(424.0) 06/24/2013 Type II or unspecified type diabetes mellitus without mention of complication, uncontrolled 05/20/2009 Myalgia and myositis, unspecified 06/24/2013 Generalized osteoarthrosis, unspecified site 08/18/2018 documented as of this encounter (statuses as of 11/28/2022) [facility]12-[facility]2018 History of Past illness Narrative* Problem Noted Date Diagnosed Date Resolved Date Neck pain, chronic 01/29/2018 9 Overview: Added automatically from request for surgery [id number] Neck pain on left side 01/08/201808/18 Radiculopathy, lumbar region 12/01/2017 02/18/2019 Tear of medial meniscus of r ight knee, subsequent encounter 08/20/2017 08/18/2018 Muscle weakness 12/22/2016 08/18/2018 Closed dislocation of hip, unspecified site 09/15/2014 11/30/2014 Other joint derangement, not elsewhere classified, unspecified site 09/15/2014 11/30/2014 Mammographic microcalcificat ion found on diagnostic imaging of breast 09/13/2014 02/18/2019 Pain in joint, pelvic region and thigh 04/15/2010 11/30/2014 NEVUS///BENIGN ANGELLA SKIN FACE NEC 12/18/2006 08/18/2018 NEVUS BACK/ABD.//BENIGN ANGELLA SKIN TRUNK 12/18/2006 08/18/2018 Synovitis and tenosynovitis in diseases classified elsewhere 06/27/2005 02/18/2019 Mitral valve disorders(424.0) 06/24/2013 Type II or unspecified type diabetes mellitus without mention of complication, uncontrolled 05/20/2009 Myalgia and myositis, unspecified 06/24/2013 Generalized osteoarthrosis, unspecified site 08/18/2018 documented as of this encounter (statuses as of 11/29/2022) [facility]12[facility] History of Past illness Narrative* Problem Noted Date Diagnosed Date Resolved Date Neck pain, chronic 01/29/2018 9 Overview: Added automatically from request for surgery [id number] Neck pain on left side 01/08/201808/18 Radiculopathy, lumbar region 12/01/2017 02/18/2019 Tear of medial meniscus of r ight knee, subsequent encounter 08/20/2017 08/18/2018 Muscle weakness 12/22/2016 08/18/2018 Closed dislocation of hip, unspecified site 09/15/2014 11/30/2014 Other joint derangement, not elsewhere classified, unspecified site 09/15/2014 11/30/2014 Mammographic microcalcificat ion found on diagnostic imaging of breast 09/13/2014 02/18/2019 Pain in joint, pelvic region and thigh 04/15/2010 11/30/2014 NEVUS///BENIGN ANGELLA SKIN FACE NEC 12/18/2006 08/18/2018 NEVUS BACK/ABD.//BENIGN ANGELLA SKIN TRUNK 12/18/2006 08/18/2018 Synovitis and tenosynovitis in diseases classified elsewhere 06/27/2005 02/18/2019 Mitral valve disorders(424.0) 06/24/2013 Type II or unspecified type diabetes mellitus without mention of complication, uncontrolled 05/20/2009 Myalgia and myositis, unspecified 06/24/2013 Generalized osteoarthrosis, unspecified site 08/18/2018 documented as of this encounter (statuses as of 12/04/2022) [facility] History of Past illness Narrative* Problem Noted Date Diagnosed Date Resolved Date Neck pain, chronic 01/29/2018 9 Overview: Added automatically from request for surgery [id number] Neck pain on left side 01/08/201808/18 Radiculopathy, lumbar region 12/01/2017 02/18/2019 Tear of medial meniscus of r ight knee, subsequent encounter 08/20/2017 08/18/2018 Muscle weakness 12/22/2016 08/18/2018 Closed dislocation of hip, unspecified site 09/15/2014 11/30/2014 Other joint derangement, not elsewhere classified, unspecified site 09/15/2014 11/30/2014 Mammographic microcalcificat ion found on diagnostic imaging of breast 09/13/2014 02/18/2019 Pain in joint, pelvic region and thigh 04/15/2010 11/30/2014 NEVUS///BENIGN ANGELLA SKIN FACE NEC 12/18/2006 08/18/2018 NEVUS BACK/ABD.//BENIGN ANGELLA SKIN TRUNK 12/18/2006 08/18/2018 Synovitis and tenosynovitis in diseases classified elsewhere 06/27/2005 02/18/2019 Mitral valve disorders(424.0) 06/24/2013 Type II or unspecified type diabetes mellitus without mention of complication, uncontrolled 05/20/2009 Myalgia and myositis, unspecified 06/24/2013 Generalized osteoarthrosis, unspecified site 08/18/2018 documented as of this encounter (statuses as of 12/12/2022) [facility] History of Past illness Narrative* Problem Noted Date Diagnosed Date Resolved Date Neck pain, chronic 01/29/2018 9 Overview: Added automatically from request for surgery [id number] Neck pain on left side 01/08/201808/18 Radiculopathy, lumbar region 12/01/2017 02/18/2019 Tear of medial meniscus of r ight knee, subsequent encounter 08/20/2017 08/18/2018 Muscle weakness 12/22/2016 08/18/2018 Closed dislocation of hip, unspecified site 09/15/2014 11/30/2014 Other joint derangement, not elsewhere classified, unspecified site 09/15/2014 11/30/2014 Mammographic microcalcificat ion found on diagnostic imaging of breast 09/13/2014 02/18/2019 Pain in joint, pelvic region and thigh 04/15/2010 11/30/2014 NEVUS///BENIGN ANGELLA SKIN FACE NEC 12/18/2006 08/18/2018 NEVUS BACK/ABD.//BENIGN ANGELLA SKIN TRUNK 12/18/2006 08/18/2018 Synovitis and tenosynovitis in diseases classified elsewhere 06/27/2005 02/18/2019 Mitral valve disorders(424.0) 06/24/2013 Type II or unspecified type diabetes mellitus without mention of complication, uncontrolled 05/20/2009 Myalgia and myositis, unspecified 06/24/2013 Generalized osteoarthrosis, unspecified site 08/18/2018 documented as of this encounter (statuses as of 12/12/2022) [facility] History of Past illness Narrative* Problem Noted Date Diagnosed Date Resolved Date Neck pain, chronic 01/29/2018 9 Overview: Added automatically from request for surgery [id number] Neck pain on left side 01/08/201808/18 Radiculopathy, lumbar region 12/01/2017 02/18/2019 Tear of medial meniscus of r ight knee, subsequent encounter 08/20/2017 08/18/2018 Muscle weakness 12/22/2016 08/18/2018 Closed dislocation of hip, unspecified site 09/15/2014 11/30/2014 Other joint derangement, not elsewhere classified, unspecified site 09/15/2014 11/30/2014 Mammographic microcalcificat ion found on diagnostic imaging of breast 09/13/2014 02/18/2019 Pain in joint, pelvic region and thigh 04/15/2010 11/30/2014 NEVUS///BENIGN ANGELLA SKIN FACE NEC 12/18/2006 08/18/2018 NEVUS BACK/ABD.//BENIGN ANGELLA SKIN TRUNK 12/18/2006 08/18/2018 Synovitis and tenosynovitis in diseases classified elsewhere 06/27/2005 02/18/2019 Mitral valve disorders(424.0) 06/24/2013 Type II or unspecified type diabetes mellitus without mention of complication, uncontrolled 05/20/2009 Myalgia and myositis, unspecified 06/24/2013 Generalized osteoarthrosis, unspecified site 08/18/2018 documented as of this encounter (statuses as of 12/12/2022) [facility] History of Past illness Narrative* Problem Noted Date Diagnosed Date Resolved Date Neck pain, chronic 01/29/2018 9 Overview: Added automatically from request for surgery [id number] Neck pain on left side 01/08/201808/18 Radiculopathy, lumbar region 12/01/2017 02/18/2019 Tear of medial meniscus of r ight knee, subsequent encounter 08/20/2017 08/18/2018 Muscle weakness 12/22/2016 08/18/2018 Closed dislocation of hip, unspecified site 09/15/2014 11/30/2014 Other joint derangement, not elsewhere classified, unspecified site 09/15/2014 11/30/2014 Mammographic microcalcificat ion found on diagnostic imaging of breast 09/13/2014 02/18/2019 Pain in joint, pelvic region and thigh 04/15/2010 11/30/2014 NEVUS///BENIGN ANGELLA SKIN FACE NEC 12/18/2006 08/18/2018 NEVUS BACK/ABD.//BENIGN ANGELLA SKIN TRUNK 12/18/2006 08/18/2018 Synovitis and tenosynovitis in diseases classified elsewhere 06/27/2005 02/18/2019 Mitral valve disorders(424.0) 06/24/2013 Type II or unspecified type diabetes mellitus without mention of complication, uncontrolled 05/20/2009 Myalgia and myositis, unspecified 06/24/2013 Generalized osteoarthrosis, unspecified site 08/18/2018 documented as of this encounter (statuses as of 12/12/2022) [facility] History of Past illness Narrative* Problem Noted Date Diagnosed Date Resolved Date Neck pain, chronic 01/29/2018 9 Overview: Added automatically from request for surgery [id number] Neck pain on left side 01/08/201808/18 Radiculopathy, lumbar region 12/01/2017 02/18/2019 Tear of medial meniscus of r ight knee, subsequent encounter 08/20/2017 08/18/2018 Muscle weakness 12/22/2016 08/18/2018 Closed dislocation of hip, unspecified site 09/15/2014 11/30/2014 Other joint derangement, not elsewhere classified, unspecified site 09/15/2014 11/30/2014 Mammographic microcalcificat ion found on diagnostic imaging of breast 09/13/2014 02/18/2019 Pain in joint, pelvic region and thigh 04/15/2010 11/30/2014 NEVUS///BENIGN ANGELLA SKIN FACE NEC 12/18/2006 08/18/2018 NEVUS BACK/ABD.//BENIGN ANGELLA SKIN TRUNK 12/18/2006 08/18/2018 Synovitis and tenosynovitis in diseases classified elsewhere 06/27/2005 02/18/2019 Mitral valve disorders(424.0) 06/24/2013 Type II or unspecified type diabetes mellitus without mention of complication, uncontrolled 05/20/2009 Myalgia and myositis, unspecified 06/24/2013 Generalized osteoarthrosis, unspecified site 08/18/2018 documented as of this encounter (statuses as of 12/12/2022) [facility] History of Past illness Narrative* Problem Noted Date Diagnosed Date Resolved Date Neck pain, chronic 01/29/2018 9 Overview: Added automatically from request for surgery [id number] Neck pain on left side 01/08/201808/18 Radiculopathy, lumbar region 12/01/2017 02/18/2019 Tear of medial meniscus of r ight knee, subsequent encounter 08/20/2017 08/18/2018 Muscle weakness 12/22/2016 08/18/2018 Closed dislocation of hip, unspecified site 09/15/2014 11/30/2014 Other joint derangement, not elsewhere classified, unspecified site 09/15/2014 11/30/2014 Mammographic microcalcificat ion found on diagnostic imaging of breast 09/13/2014 02/18/2019 Pain in joint, pelvic region and thigh 04/15/2010 11/30/2014 NEVUS///BENIGN ANGELLA SKIN FACE NEC 12/18/2006 08/18/2018 NEVUS BACK/ABD.//BENIGN ANGELLA SKIN TRUNK 12/18/2006 08/18/2018 Synovitis and tenosynovitis in diseases classified elsewhere 06/27/2005 02/18/2019 Mitral valve disorders(424.0) 06/24/2013 Type II or unspecified type diabetes mellitus without mention of complication, uncontrolled 05/20/2009 Myalgia and myositis, unspecified 06/24/2013 Generalized osteoarthrosis, unspecified site 08/18/2018 documented as of this encounter (statuses as of 12/12/2022) [facility] History of Past illness Narrative* Problem Noted Date Diagnosed Date Resolved Date Neck pain, chronic 01/29/2018 9 Overview: Added automatically from request for surgery [id number] Neck pain on left side 01/08/201808/18 Radiculopathy, lumbar region 12/01/2017 02/18/2019 Tear of medial meniscus of r ight knee, subsequent encounter 08/20/2017 08/18/2018 Muscle weakness 12/22/2016 08/18/2018 Closed dislocation of hip, unspecified site 09/15/2014 11/30/2014 Other joint derangement, not elsewhere classified, unspecified site 09/15/2014 11/30/2014 Mammographic microcalcificat ion found on diagnostic imaging of breast 09/13/2014 02/18/2019 Pain in joint, pelvic region and thigh 04/15/2010 11/30/2014 NEVUS///BENIGN ANGELLA SKIN FACE NEC 12/18/2006 08/18/2018 NEVUS BACK/ABD.//BENIGN ANGELLA SKIN TRUNK 12/18/2006 08/18/2018 Synovitis and tenosynovitis in diseases classified elsewhere 06/27/2005 02/18/2019 Mitral valve disorders(424.0) 06/24/2013 Type II or unspecified type diabetes mellitus without mention of complication, uncontrolled 05/20/2009 Myalgia and myositis, unspecified 06/24/2013 Generalized osteoarthrosis, unspecified site 08/18/2018 documented as of this encounter (statuses as of 12/12/2022) [facility] History of Past illness Narrative* Problem Noted Date Diagnosed Date Resolved Date Neck pain, chronic 01/29/2018 9 Overview: Added automatically from request for surgery [id number] Neck pain on left side 01/08/201808/18 Radiculopathy, lumbar region 12/01/2017 02/18/2019 Tear of medial meniscus of r ight knee, subsequent encounter 08/20/2017 08/18/2018 Muscle weakness 12/22/2016 08/18/2018 Closed dislocation of hip, unspecified site 09/15/2014 11/30/2014 Other joint derangement, not elsewhere classified, unspecified site 09/15/2014 11/30/2014 Mammographic microcalcificat ion found on diagnostic imaging of breast 09/13/2014 02/18/2019 Pain in joint, pelvic region and thigh 04/15/2010 11/30/2014 NEVUS///BENIGN ANGELLA SKIN FACE NEC 12/18/2006 08/18/2018 NEVUS BACK/ABD.//BENIGN ANGELLA SKIN TRUNK 12/18/2006 08/18/2018 Synovitis and tenosynovitis in diseases classified elsewhere 06/27/2005 02/18/2019 Mitral valve disorders(424.0) 06/24/2013 Type II or unspecified type diabetes mellitus without mention of complication, uncontrolled 05/20/2009 Myalgia and myositis, unspecified 06/24/2013 Generalized osteoarthrosis, unspecified site 08/18/2018 documented as of this encounter (statuses as of 12/19/2022) [facility] History of Past illness Narrative* Problem Noted Date Diagnosed Date Resolved Date Neck pain, chronic 01/29/2018 9 Overview: Added automatically from request for surgery [id number] Neck pain on left side 01/08/201808/18 Radiculopathy, lumbar region 12/01/2017 02/18/2019 Tear of medial meniscus of r ight knee, subsequent encounter 08/20/2017 08/18/2018 Muscle weakness 12/22/2016 08/18/2018 Closed dislocation of hip, unspecified site 09/15/2014 11/30/2014 Other joint derangement, not elsewhere classified, unspecified site 09/15/2014 11/30/2014 Mammographic microcalcificat ion found on diagnostic imaging of breast 09/13/2014 02/18/2019 Pain in joint, pelvic region and thigh 04/15/2010 11/30/2014 NEVUS///BENIGN ANGELLA SKIN FACE NEC 12/18/2006 08/18/2018 NEVUS BACK/ABD.//BENIGN ANGELLA SKIN TRUNK 12/18/2006 08/18/2018 Synovitis and tenosynovitis in diseases classified elsewhere 06/27/2005 02/18/2019 Mitral valve disorders(424.0) 06/24/2013 Type II or unspecified type diabetes mellitus without mention of complication, uncontrolled 05/20/2009 Myalgia and myositis, unspecified 06/24/2013 Generalized osteoarthrosis, unspecified site 08/18/2018 documented as of this encounter (statuses as of 12/26/2022) [facility] History of Past illness Narrative* Problem Noted Date Diagnosed Date Resolved Date Neck pain, chronic 01/29/2018 9 Overview: Added automatically from request for surgery [id number] Neck pain on left side 01/08/201808/18 Radiculopathy, lumbar region 12/01/2017 02/18/2019 Tear of medial meniscus of r ight knee, subsequent encounter 08/20/2017 08/18/2018 Muscle weakness 12/22/2016 08/18/2018 Closed dislocation of hip, unspecified site 09/15/2014 11/30/2014 Other joint derangement, not elsewhere classified, unspecified site 09/15/2014 11/30/2014 Mammographic microcalcificat ion found on diagnostic imaging of breast 09/13/2014 02/18/2019 Pain in joint, pelvic region and thigh 04/15/2010 11/30/2014 NEVUS///BENIGN ANGELLA SKIN FACE NEC 12/18/2006 08/18/2018 NEVUS BACK/ABD.//BENIGN ANGELLA SKIN TRUNK 12/18/2006 08/18/2018 Synovitis and tenosynovitis in diseases classified elsewhere 06/27/2005 02/18/2019 Mitral valve disorders(424.0) 06/24/2013 Type II or unspecified type diabetes mellitus without mention of complication, uncontrolled 05/20/2009 Myalgia and myositis, unspecified 06/24/2013 Generalized osteoarthrosis, unspecified site 08/18/2018 documented as of this encounter (statuses as of 12/31/2022) [facility] History of Past illness Narrative* Problem Noted Date Diagnosed Date Resolved Date Neck pain, chronic 01/29/2018 9 Overview: Added automatically from request for surgery [id number] Neck pain on left side 01/08/201808/18 Radiculopathy, lumbar region 12/01/2017 02/18/2019 Tear of medial meniscus of r ight knee, subsequent encounter 08/20/2017 08/18/2018 Muscle weakness 12/22/2016 08/18/2018 Closed dislocation of hip, unspecified site 09/15/2014 11/30/2014 Other joint derangement, not elsewhere classified, unspecified site 09/15/2014 11/30/2014 Mammographic microcalcificat ion found on diagnostic imaging of breast 09/13/2014 02/18/2019 Pain in joint, pelvic region and thigh 04/15/2010 11/30/2014 NEVUS///BENIGN ANGELLA SKIN FACE NEC 12/18/2006 08/18/2018 NEVUS BACK/ABD.//BENIGN ANGELLA SKIN TRUNK 12/18/2006 08/18/2018 Synovitis and tenosynovitis in diseases classified elsewhere 06/27/2005 02/18/2019 Mitral valve disorders(424.0) 06/24/2013 Type II or unspecified type diabetes mellitus without mention of complication, uncontrolled 05/20/2009 Myalgia and myositis, unspecified 06/24/2013 Generalized osteoarthrosis, unspecified site 08/18/2018 documented as of this encounter (statuses as of 12/31/2022) [facility] History of Past illness Narrative* Problem Noted Date Diagnosed Date Resolved Date Neck pain, chronic 01/29/2018 9 Overview: Added automatically from request for surgery [id number] Neck pain on left side 01/08/201808/18 Radiculopathy, lumbar region 12/01/2017 02/18/2019 Tear of medial meniscus of r ight knee, subsequent encounter 08/20/2017 08/18/2018 Muscle weakness 12/22/2016 08/18/2018 Closed dislocation of hip, unspecified site 09/15/2014 11/30/2014 Other joint derangement, not elsewhere classified, unspecified site 09/15/2014 11/30/2014 Mammographic microcalcificat ion found on diagnostic imaging of breast 09/13/2014 02/18/2019 Pain in joint, pelvic region and thigh 04/15/2010 11/30/2014 NEVUS///BENIGN ANGELLA SKIN FACE NEC 12/18/2006 08/18/2018 NEVUS BACK/ABD.//BENIGN ANGELLA SKIN TRUNK 12/18/2006 08/18/2018 Synovitis and tenosynovitis in diseases classified elsewhere 06/27/2005 02/18/2019 Mitral valve disorders(424.0) 06/24/2013 Type II or unspecified type diabetes mellitus without mention of complication, uncontrolled 05/20/2009 Myalgia and myositis, unspecified 06/24/2013 Generalized osteoarthrosis, unspecified site 08/18/2018 documented as of this encounter (statuses as of 01/15/2023) [facility] History of Past illness Narrative* Problem Noted Date Diagnosed Date Resolved Date Neck pain, chronic 01/29/2018 9 Overview: Added automatically from request for surgery [id number] Neck pain on left side 01/08/201808/18 Radiculopathy, lumbar region 12/01/2017 02/18/2019 Tear of medial meniscus of r ight knee, subsequent encounter 08/20/2017 08/18/2018 Muscle weakness 12/22/2016 08/18/2018 Closed dislocation of hip, unspecified site 09/15/2014 11/30/2014 Other joint derangement, not elsewhere classified, unspecified site 09/15/2014 11/30/2014 Mammographic microcalcificat ion found on diagnostic imaging of breast 09/13/2014 02/18/2019 Pain in joint, pelvic region and thigh 04/15/2010 11/30/2014 NEVUS///BENIGN ANGELLA SKIN FACE NEC 12/18/2006 08/18/2018 NEVUS BACK/ABD.//BENIGN ANGELLA SKIN TRUNK 12/18/2006 08/18/2018 Synovitis and tenosynovitis in diseases classified elsewhere 06/27/2005 02/18/2019 Mitral valve disorders(424.0) 06/24/2013 Type II or unspecified type diabetes mellitus without mention of complication, uncontrolled 05/20/2009 Myalgia and myositis, unspecified 06/24/2013 Generalized osteoarthrosis, unspecified site 08/18/2018 documented as of this encounter (statuses as of 01/24/2023) [facility] note* Diagnosis Dysuria- Primary documented in this encounter [facility] note* Diagnosis Acute cystitis with hematuria- Primary Acute cystitis documented in this encounter [facility] note* Diagnosis Goiter- Primary Goiter, unspecified Fatigue, unspecified type Dysphagia, unspecified type Recurrent UTI (urinary tract infection) Urinary tract infection, site not specified Dyslipidemia Other and unspecified hyperlipidemia Type 2 diabetes mellitus without complication, without long-term current use of insulin (HCC) documented in this encounter [facility] note* Diagnosis Goiter Goiter, unspecified documented in this encounter [facility] note* Diagnosis Goiter- Primary Goiter, unspecified Multiple thyroid nodules Nontoxic multinodular goiter documented in this encounter [facility] noteThere may be information available, but it has not been provided by the sender.[facility] Work Phone: Evaluation note* Diagnosis Multinodular goiter- Primary Nontoxic multinodular goiter documented in this encounter [facility] note* Diagnosis E. coli UTI- Primary Urinary tract infection, site not specified documented in this encounter [facility] note* Diagnosis Preop examination- Primary Preoperative examination, unspecified documented in this encounter [facility] note* Diagnosis Urge incontinence- Primary Urinary frequency Urinary urgency Urgency of urination documented in this encounter [facility] note* Diagnosis Foraminal stenosis of cervical region Spinal stenosis in cervical region Cervical radiculitis Brachial neuritis or radiculitis nos Neck pain Cervicalgia Right lumbar radiculitis Thoracic or lumbosacral neuritis or radiculitis, unspecified documented in this encounter [facility] note* Diagnosis Burning with urination- Primary Dysuria Foot pain, right Pain in limb Closed nondisplaced fracture of distal phalanx of lesser toe of right foot, initial encounter documented in this encounter [facility] note* Diagnosis Foraminal stenosis of cervical region Spinal stenosis in cervical region Cervical radiculitis Brachial neuritis or radiculitis nos Neck pain Cervicalgia Right lumbar radiculitis Thoracic or lumbosacral neuritis or radiculitis, unspecified [facility] Closed nondisplaced fracture of distal phalanx of lesser toe of right foot, initial encounter- Primary Hyperkeratosis Acquired keratoderma [facility] Hip pain- Primary Pain in joint, pelvic region and thigh Acute pain of left [facility] Diagnosis Encounter for screening mammogram for malignant neoplasm of breast Other screening mammogram Dense breasts Inconclusive mammogram [facility]* Diagnosis Type 2 diabetes mellitus without complication, without long-term current use of insulin (HCC)- Primary Screening for colon cancer Special screening for malignant neoplasms, colon Unintentional weight loss Loss of weight Multiple thyroid nodules Nontoxic multinodular goiter Dyslipidemia Other and unspecified hyperlipidemia Screening for osteoporosis Special screening for osteoporosis Bilateral chronic knee pain Pain in joint, lower leg 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 Disorders of sacrum Fatigue, unspecified type [facility] Diagnosis Spinal stenosis in cervical region- Primary [facility]* Diagnosis Lumbar radiculopathy- Primary Thoracic or lumbosacral neuritis or radiculitis, unspecified [facility]* Diagnosis Spinal stenosis in cervical region- Primary Spinal stenosis in cervical region Lumbar radiculopathy Thoracic or lumbosacral neuritis or radiculitis, unspecified [facility] Diagnosis Raynaud's disease without gangrene- Primary Bradycardia Other specified cardiac dysrhythmias Spinal stenosis in cervical region Lumbar radiculopathy Thoracic or lumbosacral neuritis or radiculitis, unspecified [facility] Diagnosis Type 2 diabetes mellitus without complication, without long-term current use of insulin (HCC) Spinal stenosis in cervical region Lumbar radiculopathy Thoracic or lumbosacral neuritis or radiculitis, unspecified [facility] Diagnosis Repetitive stress injury- Primary Unspecified site of sprain and strain Hyperkeratosis Acquired keratoderma Posterior tibial tendinitis of right leg Tibialis tendinitis Other diabetic neurological complication associated with type 2 diabetes mellitus (HCC) Lumbar radiculopathy Thoracic or lumbosacral neuritis or radiculitis, unspecified [facility] Diagnosis Overactive bladder- Primary Hypertonicity of bladder Urge incontinence Urinary frequency Urinary urgency Urgency of urination [facility] Diagnosis Type 2 diabetes mellitus without complication, without long-term current use of insulin (HCC)- Primary Mild intermittent asthma in adult without complication SI (sacroiliac) joint dysfunction Disorders of sacrum Raynaud's disease without gangrene OAB (overactive bladder) Hypertonicity of bladder Screening for colon cancer Special screening for malignant neoplasms, colon [facility] Diagnosis Mild intermittent asthma in adult without complication [facility] Diagnosis Overactive bladder- Primary Hypertonicity of bladder Urge incontinence MAURICE (stress urinary incontinence, female) Female stress incontinence Recurrent UTI Urinary tract infection, site not specified [facility] Diagnosis Overactive bladder Hypertonicity of bladder [facility] Diagnosis Overactive bladder Hypertonicity of bladder [facility] Diagnosis Acute cystitis without hematuria- Primary Acute cystitis [facility]* Diagnosis Raynaud's disease without gangrene- Primary Benign joint hypermobility Hypermobility syndrome [facility] Diagnosis Posterior tibial tendinitis of right leg- Primary Tibialis tendinitis Hyperkeratosis of skin Acquired keratoderma Overactive bladder Hypertonicity of bladder Urinary incontinence, urge Urge incontinence Preoperative examination Preoperative examination, unspecified [facility] Diagnosis Overactive bladder- Primary Hypertonicity of bladder Urinary incontinence, urge Urge incontinence Preoperative examination Preoperative examination, unspecified Overactive bladder Hypertonicity of bladder Urinary incontinence, urge Urge incontinence Preoperative examination Preoperative examination, unspecified [facility] Diagnosis Overactive bladder Hypertonicity of bladder Overactive bladder Hypertonicity of bladder Urinary incontinence, urge Urge incontinence Preoperative examination Preoperative examination, unspecified [facility]* Diagnosis Vaginal discharge- Primary Leukorrhea, not specified as infective Overactive bladder Hypertonicity of bladder Urinary incontinence, urge Urge incontinence Preoperative examination Preoperative examination, unspecified [facility] Diagnosis Urge incontinence- Primary Overactive bladder Hypertonicity of bladder Urinary incontinence, urge Urge incontinence Preoperative examination Preoperative examination, unspecified [facility]* Diagnosis Educational circumstance- Primary Overactive bladder Hypertonicity of bladder Urinary incontinence, urge Urge incontinence Preoperative examination Preoperative examination, unspecified [facility]* Diagnosis Preop examination- Primary Preoperative examination, unspecified Dyslipidemia Other and unspecified hyperlipidemia Nonrheumatic mitral valve regurgitation Malignant hyperthermia, initial encounter Primary hypertension Unspecified essential hypertension Overactive bladder Hypertonicity of bladder Urinary incontinence, urge Urge incontinence Preoperative examination Preoperative examination, unspecified [facility]* Diagnosis Sacral neurostimulator in situ- Primary Post-operative state Other postprocedural status Sacral neurostimulator in situ Post-operative state Other postprocedural status [facility] Diagnosis Acute postoperative pain- Primary Other acute postoperative pain Sacral neurostimulator in situ Post-operative state Other postprocedural status [facility] Diagnosis Acute pain of left knee- Primary [facility]* Diagnosis Radiculopathy, lumbar region- Primary Thoracic or lumbosacral neuritis or radiculitis, unspecified Lumbar stenosis with neurogenic claudication Spinal stenosis, lumbar region, with neurogenic claudication [facility]* Diagnosis Thyroid fullness- Primary Other specified disorders of thyroid Fatigue, unspecified type [facility]* Diagnosis Dyslipidemia Other and unspecified hyperlipidemia Radiculopathy, lumbar region Thoracic or lumbosacral neuritis or radiculitis, unspecified Lumbar stenosis with neurogenic claudication Spinal stenosis, lumbar region, with neurogenic claudication [facility]* Diagnosis Type 2 diabetes mellitus without complication, without long-term current use of insulin (HCC) Radiculopathy, lumbar region Thoracic or lumbosacral neuritis or radiculitis, unspecified Lumbar stenosis with neurogenic claudication Spinal stenosis, lumbar region, with neurogenic claudication Spinal stenosis in cervical region [facility]* Diagnosis Type 2 diabetes mellitus without complication, without long-term current use of insulin ([facility])- Primary Other diabetic neurological complication associated with type 2 diabetes mellitus (HCC) Dyslipidemia Other and unspecified hyperlipidemia Fatigue, unspecified type Multiple thyroid nodules Nontoxic multinodular goiter Right hip pain Pain in joint, pelvic region and thigh OAB (overactive bladder) Hypertonicity of bladder [facility]* Diagnosis Chronic patellofemoral pain of left knee- Primary [facility]* Diagnosis Breakdown (mechanical) of urinary electronic stimulator device, initial encounter ([facility])- Primary [facility]* Diagnosis Sore throat- Primary Acute pharyngitis Left hip pain Pain in joint, pelvic region and thigh [facility]* Diagnosis Burning with urination- Primary Dysuria [facility]* Diagnosis Sacral neurostimulator in situ- Primary [facility] Diagnosis Dysuria- Primary [facility]* Diagnosis Frequent UTI- Primary Urinary tract infection, site not specified Urinary frequency Urge incontinence [facility]* Diagnosis Sleep disturbances- Primary Sleep disturbance, unspecified [facility]* Diagnosis SAGE (obstructive sleep apnea)- Primary Obstructive sleep apnea (adult) (pediatric) Dyslipidemia Other and unspecified hyperlipidemia Type 2 diabetes mellitus without complication, without long-term current use of insulin ([facility]) Sleep disturbances Sleep disturbance, unspecified Restless legs Restless legs syndrome (RLS) documented [facility]* Diagnosis Acute pain of left knee [facility]* Diagnosis Multiple thyroid nodules Nontoxic multinodular goiter Goiter Goiter, unspecified [facility]* Diagnosis Right lumbar radiculitis Thoracic or lumbosacral neuritis or radiculitis, unspecified Lumbar radiculopathy Thoracic or lumbosacral neuritis or radiculitis, unspecified Spinal stenosis, lumbar region with neurogenic claudication Lumbar spondylosis Lumbosacral spondylosis without myelopathy Myofascial pain Mylagia and myositis, unspecified [facility]* Diagnosis Encounter for screening mammogram for malignant neoplasm of breast Other screening mammogram [facility]* Diagnosis Screening for osteoporosis Special screening for osteoporosis documented in this [facility]* Diagnosis Thyroid fullness Other specified disorders of thyroid documented in this encounter [facility]* Diagnosis Sacral neurostimulator in situ Post-operative state Other postprocedural status documented [facility]* Diagnosis Acute cystitis without hematuria- Primary Acute cystitis documented [facility]* Diagnosis Bilateral chronic knee pain- Primary Pain in joint, lower leg [facility]* Diagnosis Urinary urgency- Primary Urgency of urination Urge incontinence Vaginal atrophy Postmenopausal atrophic vaginitis Recurrent UTI Urinary tract infection, site not specified documented in this encounter [facility]* Diagnosis Effusion of right knee- Primary Effusion of lower leg joint Chronic patellofemoral pain of right knee [facility] Diagnosis Sore mouth- Primary Other and unspecified diseases of the oral soft tissues [facility] Instruction Description Start Date Completed [facility] Work Phone: Reason for referral (narrative)* Diagnostic Procedure Only (Routine) - Authorized Specialty Diagnoses / Procedures Referred By Michelle drew Referred To Contact US IMAGING Diagnoses Goiter Procedures US THYROID/PARATHYROID US SOFT TISSUE HEAD & NECK REAL TIME IMGE Stephanie Schilling APRN.[employer] [address] [place] [address] Us Imaging Referral ID Status Reason Start Date Expiration Date Visits Requested Visits Authorized [id number] Authorized Auto-Generat ed Referral 05/06/2021 06/05/2022 1 1 [facility] for referral (narrative)* Diagnostic Procedure Only (Routine) - Closed Specialty Diagnoses / Procedures Referred By Contac t Referred To Contact US IMAGING Diagnoses Goiter Procedures US THYROID/PARATHYROID US SOFT TISSUE HEAD & NECK REAL TIME IMGE Stephanie Schilling APRN.[employer] [address] [place] [address] Us Imaging Referral ID Status Reason Start Date Expiration Date V isits Requested Visits Authorized [id number] Closed Auto-Generate d Referral 05/06/2021 06/05/2022 1 1 [facility] for referral (narrative)* Outpatient Procedure (Routine) - Closed Specialty Diagnoses / Procedures Referred By Contac t Referred To [facility] Diagnoses Preop examination Procedures ECG COMPLETE ECG ROUTINE ECG W/LEAST 12 LDS W/I&R Nya Barba APRN.[employer] [address] [place] [address] [facility] [place] [address] [place] [address] Referral ID Status Reason Start Date Expiration Date V isits Requested Visits Authorized [id number] Closed Auto-Generate d Referral 08/08/2021 08/08/2022 1 1 [facility] for referral (narrative)* Diagnostic Procedure Only (Urgent) - Closed Specialty Diagnoses / Procedures Referred By Contac t Referred To Contact XR IMAGING Diagnoses Foot pain, right Procedures XR FOOT GENERAL 3V AP/LAT/OBL RIGHT RADEX FOOT COMPLETE MINIMUM 3 VIEWS Hannah Liriano CLAIM SPECIALIST.[employer] [address] [place] [address] Xr Imaging Referral ID Status Reason Start Date Expiration Date V isits Requested Visits Authorized [id number] Closed Auto-Generate d Referral 10/08/2021 11/07/2022 1 1 [facility] for referral (narrative)* Diagnostic Procedure Only (Routine) - Pending Review Specialty Diagnoses / Procedures Referred By Contac t Referred To Contact XR IMAGING Diagnoses Closed nondisplaced fracture of distal phalanx of lesser toe of right foot, initial encounter Procedures XR FOOT GENERAL 3V AP/LAT/OBL RIGHT RADEX FOOT COMPLETE MINIMUM 3 VIEWS Petra Langley [address] [place] [address] Xr Imaging Referral ID Status Reason Start Date Expiration Date Visits Requested Visits Authorized [id number] Pending Review Auto-Generat ed Referral 10/21/2021 11/20/2022 1 1 [facility] for referral (narrative)* Diagnostic Procedure Only (Routine) - Closed Specialty Diagnoses / Procedures Referred By Contac t Referred To Contact XR IMAGING Diagnoses Hip pain Acute pain of left knee Procedures XR KNEE GENERAL 4V AP BOTH/PA BOTH/LAT/MERC LEFT RADIOLOGIC EXAM KNEE COMPLETE 4/MORE VIEWS Stephanie Ladd APRN.[employer] [address] [place] [address] Xr Imaging Referral ID Status Reason Start Date Expiration Date V isits Requested Visits Authorized [id number] Closed Auto-Generate d Referral 10/24/2021 11/23/2022 1 1 * Diagnostic Procedure Only (Routine) - Closed Specialty Diagnoses / Procedures Referred By Contac t Referred To Contact XR IMAGING Diagnoses Hip pain Acute pain of left knee Procedures XR HIP GENERAL 3V PELV/AP/LAT LEFT RADEX HIP UNILATERAL WITH PELVIS 2-3 VIEWS Stephanie Ladd APRN.[employer] [address] [place] [address] Xr Imaging Referral ID Status Reason Start Date Expiration Date V isits Requested Visits Authorized [id number] Closed Auto-Generate d Referral 10/24/2021 11/23/2022 1 1 [facility] for referral (narrative)* Diagnostic Procedure Only (Routine) - Closed Specialty Diagnoses / Procedures Referred By Patrickac t Referred To Contact BR IMAGING Diagnoses Encounter for screening mammogram for malignant neoplasm of breast Dense breasts Procedures EAMON SCREENING W WINSTON SCREENING BREAST DGTL WINSTON UNI/BILAT ADD ON SCREENING MAMMOGRAPHY BI 2-VIEW BREAST INC CAD Codie Lynn MD [address] [place] [address] [facility] [address] [place] [address] Referral ID Status Reason Start Date Expiration Date V isits Requested Visits Authorized [id number] Closed Auto-Generate d Referral 11/22/2020 12/22/2021 1 1 [facility] for referral (narrative)* Diagnostic Procedure Only (Routine) - Pending Review Specialty Diagnoses / Procedures Referred By Michelle t Referred To Contact XR IMAGING Diagnoses Repetitive stress injury Procedures XR FOOT GENERAL 3V AP/LAT/OBL RIGHT RADEX FOOT COMPLETE MINIMUM 3 VIEWS Petra Langley [address] [place] [address] Xr Imaging Referral ID Status Reason Start Date Expiration Date Visits Requested Visits Authorized [id number] Pending Review Auto-Generat ed Referral 02/21/2023 1 1 [facility] for referral (narrative)* Outpatient Procedure (Routine) - Authorized Specialty Diagnoses / Procedures Referred By Michelle t Referred To Contact [facility] Diagnoses Mild intermittent asthma in adult without complication Procedures SPIROMETRY - BASELINE AND POST DILATOR BRNCDILAT RSPSE SPMTRY PRE&POST-BRNCDILAT ADMN Nya Barab APRN.[employer] [address] [place] [address] [facility] [place] [address] [place] [address] Referral ID Status Reason Start Date Expiration Date Visits Requested Visits Authorized [id number] Authorized Auto-Generat ed Referral 03/12/2022 04/11/2023 1 1 [facility] for referral (narrative)* Diagnostic Procedure Only (Urgent) - Closed Specialty Diagnoses / Procedures Referred By Contac t Referred To Contact XR IMAGING Diagnoses Sacral neurostimulator in situ Post-operative state Procedures XR PELVIS 3V AP/INLET/OUTLET RADIOLOGIC EXAM PELVIS COMPL MINIMUM 3 VIEWS Jeremy Chavez MD [address] [place] [address] Xr Imaging Referral ID Status Reason Start Date Expiration Date V isits Requested Visits Authorized [id number] Closed Auto-Generate d Referral 07/08/2022 08/07/2023 1 1 [facility] for referral (narrative)* Diagnostic Procedure Only (Routine) - Closed Specialty Diagnoses / Procedures Referred By Contac t Referred To Contact XR IMAGING Diagnoses Acute pain of left knee Procedures XR KNEE GENERAL 4V AP BOTH/PA BOTH/LAT/MERC LEFT RADIOLOGIC EXAM KNEE COMPLETE 4/MORE VIEWS Ben Paulson CLAIM SPECIALIST.[employer] [facility] [place] [address] Xr Imaging Referral ID Status Reason Start Date Expiration Date V isits Requested Visits Authorized [id number] Closed Auto-Generate d Referral 07/22/2022 08/21/2023 1 1 [facility] for referral (narrative)* Diagnostic Procedure Only (Urgent) - Authorized Specialty Diagnoses / Procedures Referred By Contac t Referred To Contact US IMAGING Diagnoses Thyroid fullness Procedures US THYROID/PARATHYROID US SOFT TISSUE HEAD & NECK REAL TIME IMGE Connie Gabriel MD [address] [place] [address] Us Imaging Referral ID Status Reason Start Date Expiration Date Visits Requested Visits Authorized [id number] Authorized Auto-Generat ed Referral 08/06/2022 09/05/2023 1 1 [facility] for referral (narrative)* Diagnostic Procedure Only (Routine) - Pending Review Specialty Diagnoses / Procedures Referred By Contac t Referred To Contact XR IMAGING Diagnoses Breakdown (mechanical) of urinary electronic stimulator device, initial encounter ([facility]) Procedures XR PELVIS 1V LATERAL RADIOLOGIC EXAMINATION PELVIS 1/2 VIEWS Jeremy Chavez MD [address] [place] [id number] Xr Imaging [facility] Referral ID Status Reason Start Date Expiration Date Visits Requested Visits Authorized [id number] Pending Review Auto-Generat ed Referral 10/22/2022 11/21/2023 1 1 * Diagnostic Procedure Only (Routine) - Pending Review Specialty Diagnoses / Procedures Referred By Patrickac t Referred To Contact XR IMAGING Diagnoses Breakdown (mechanical) of urinary electronic stimulator device, initial encounter ([facility]) Procedures XR PELVIS 3V AP/INLET/OUTLET RADIOLOGIC EXAM PELVIS COMPL MINIMUM 3 VIEWS Jeremy Chavez MD [address] [place] [address] Xr Imaging [place] [address] Referral ID Status Reason Start Date Expiration Date Visits Requested Visits Authorized [id number] Pending Review Auto-Generat ed Referral 10/22/2022 11/21/2023 1 1 [facility] for referral (narrative)* Diagnostic Procedure Only (Urgent) - Closed Specialty Diagnoses / Procedures Referred By Contac t Referred To Contact XR IMAGING Diagnoses Left hip pain Procedures XR HIP GENERAL 3V PELV/AP/LAT LEFT RADEX HIP UNILATERAL WITH PELVIS 2-3 VIEWS Kimber Tello, CLAIM SPECIALIST.[employer] [address] [place] [address] Xr Imaging [facility] Referral ID Status Reason Start Date Expiration Date V isits Requested Visits Authorized [id number] Closed Auto-Generate d Referral 10/23/2022 11/22/2023 1 1 [facility] for referral (narrative)* Diagnostic Procedure Only (Routine) - Pending Review Specialty Diagnoses / Procedures Referred By Contac t Referred To Contact [facility] Diagnoses Sleep disturbances Procedures HOME SLEEP APNEA TEST (HSAT) SLEEP STD AIRFLOW HRT RATE&O2 SAT EFFORT Stephanie Hartmann APRN.[employer] [address] [place] [address] [facility] [place] [address] [place] [address] Referral ID Status Reason Start Date Expiration Date Visits Requested Visits Authorized [id number] Pending Review Auto-Generat ed Referral 11/27/2023 1 1 [facility] for referral (narrative)* Diagnostic Procedure Only (Routine) - Closed Specialty Diagnoses / Procedures Referred By Contac t Referred To Contact XR IMAGING Diagnoses Acute pain of left knee Procedures XR KNEE GENERAL 4V AP BOTH/PA BOTH/LAT/MERC LEFT RADIOLOGIC EXAM KNEE COMPLETE 4/MORE VIEWS Ben Paulson APRN.[employer] [address] [place] [address] [place] [address] Referral ID Status Reason Start Date Expiration Date V isits Requested Visits Authorized [id number] Closed Auto-Generate d Referral 07/22/2022 08/21/2023 1 1 [facility] for referral (narrative)* Diagnostic Procedure Only (Routine) - Closed Specialty Diagnoses / Procedures Referred By Contac t Referred To Contact US IMAGING Diagnoses Multiple thyroid nodules Goiter Procedures US THYROID/PARATHYROID US SOFT TISSUE HEAD & NECK REAL TIME IMGE Hitesh Rueda DO [address] [place] [address] [place] [address] Referral ID Status Reason Start Date Expiration Date V isits Requested Visits Authorized [id number] Closed Auto-Generate d Referral 05/02/2022 08/02/2022 1 1 [facility] for referral (narrative)* Diagnostic Procedure Only (Routine) - Closed Specialty Diagnoses / Procedures Referred By Michelle drew Referred To Contact XR IMAGING Diagnoses Right lumbar radiculitis Lumbar radiculopathy Spinal stenosis, lumbar region with neurogenic claudication Lumbar spondylosis Myofascial pain Procedures XR LUMBAR LIMITED 2V AP/LAT X-RAY L-S SPINE AP/LATERAL Jamil Nixon DO [address] [facility] [address] [address] [place] [address] Referral ID Status Reason Start Date Expiration Date V isits Requested Visits Authorized [id number] Closed Auto-Generate d Referral 02/07/2021 03/09/2022 1 1 [facility] for referral (narrative)* Diagnostic Procedure Only (Routine) - Closed Specialty Diagnoses / Procedures Referred By Michelle drew Referred To Contact BR IMAGING Diagnoses Encounter for screening mammogram for malignant neoplasm of breast Procedures EAMON SCREENING W WINSTON SCREENING DIGITAL BREAST TOMOSYNTHESIS BI SCREENING MAMMOGRAPHY BI 2-VIEW BREAST INC CAD Hitesh Maria DO [address] [place] [address] [facility] [address] [place] [address] Referral ID Status Reason Start Date Expiration Date V isits Requested Visits Authorized [id number] Closed Auto-Generate d Referral 06/03/2022 07/03/2023 1 1 [facility] for referral (narrative)* Diagnostic Procedure Only (Urgent) - Closed Specialty Diagnoses / Procedures Referred By Michelle drew Referred To Contact US IMAGING Diagnoses Thyroid fullness Procedures US THYROID/PARATHYROID US SOFT TISSUE HEAD & NECK REAL TIME IMGE Connie Gabriel MD [address] [place] [address] [place] [address] Referral ID Status Reason Start Date Expiration Date V isits Requested Visits Authorized [id number] Closed Auto-Generate d Referral 08/06/2022 09/05/2023 1 1 [facility] for referral (narrative)* Diagnostic Procedure Only (Urgent) - Closed Specialty Diagnoses / Procedures Referred By Contac t Referred To Contact XR IMAGING Diagnoses Sacral neurostimulator in situ Post-operative state Procedures XR PELVIS 3V AP/INLET/OUTLET RADIOLOGIC EXAM PELVIS COMPL MINIMUM 3 VIEWS Jeremy Chavez MD [address] [phone] Xr Imaging [facility]95 Referral ID Status Reason Start Date Expiration Date V isits Requested Visits Authorized [id number] Closed Auto-Generate d Referral 07/08/2022 08/07/2023 1 1 [facility] for referral (narrative)* Diagnostic Procedure Only (Routine) - Pending Review Specialty Diagnoses / Procedures Referred By Contac t Referred To Contact XR IMAGING Diagnoses Bilateral chronic knee pain Procedures XR KNEE GENERAL 4V AP BOTH/PA BOTH/LAT/MERC RIGHT RADIOLOGIC EXAM KNEE COMPLETE 4/MORE VIEWS Ysabel Dias PA-C [address] [place] [address] Xr Imaging [facility]95 Referral ID Status Reason Start Date Expiration Date Visits Requested Visits Authorized [id number] Pending Review Auto-Generat ed Referral 3 01/29/2024 1 1 [facility] for visit Narrative* Diagnostic Procedure Only (Routine) - Closed Specialty Diagnoses / Procedures Referred By Contac t Referred To Contact XR IMAGING Diagnoses Closed nondisplaced fracture of distal phalanx of lesser toe of right foot, initial encounter Procedures XR FOOT GENERAL 3V AP/LAT/OBL RIGHT RADEX FOOT COMPLETE MINIMUM 3 VIEWS Petra Langley [address] [place] [address] Xr Imaging Referral ID Status Reason Start Date Expiration Date V isits Requested Visits Authorized [id number] Closed Auto-Generate d Referral 10/21/2021 11/20/2022 1 1 [facility] for visit Narrative* Diagnostic Procedure Only (Routine) - Closed Specialty Diagnoses / Procedures Referred By Patrickac t Referred To Contact BR IMAGING Diagnoses Encounter for screening mammogram for malignant neoplasm of breast Dense breasts Procedures EAMON SCREENING W WINSTON SCREENING BREAST DGTL WINSTON UNI/BILAT ADD ON SCREENING MAMMOGRAPHY BI 2-VIEW BREAST INC CAD Codie Lynn MD [address] [place] [address] [facility] Imaging [address] [address] Referral ID Status Reason Start Date Expiration Date V isits Requested Visits Authorized [id number] Closed Auto-Generate d Referral 11/22/2020 12/22/2021 1 1 [facility] for visit Narrative* Diagnostic Procedure Only (Routine) - Closed Specialty Diagnoses / Procedures Referred By Contac t Referred To Contact XR IMAGING Diagnoses Acute pain of left knee Procedures XR KNEE GENERAL 4V AP BOTH/PA BOTH/LAT/MERC LEFT RADIOLOGIC EXAM KNEE COMPLETE 4/MORE VIEWS Ben Paulson APRN.COOK CANDY [address] [id number] Xr Imaging [facility]95 Referral ID Status Reason Start Date Expiration Date V isits Requested Visits Authorized [id number] Closed Auto-Generate d Referral 07/22/2022 08/21/2023 1 1 [facility] for visit Narrative* Diagnostic Procedure Only (Routine) - Closed Specialty Diagnoses / Procedures Referred By Contac t Referred To Contact BR IMAGING Diagnoses Encounter for screening mammogram for malignant neoplasm of breast Procedures EAMON SCREENING W WINSTON SCREENING DIGITAL BREAST TOMOSYNTHESIS BI SCREENING MAMMOGRAPHY BI 2-VIEW BREAST INC CAD Hitesh Maria, DO [address] [phone] [facility] [address] [place] [address] Referral ID Status Reason Start Date Expiration Date V isits Requested Visits Authorized [id number] Closed Auto-Generate d Referral 06/03/2022 07/03/2023 1 1 [facility] for visit Narrative* Diagnostic Procedure Only (Urgent) - Closed Specialty Diagnoses / Procedures Referred By Contac t Referred To Contact US IMAGING Diagnoses Thyroid fullness Procedures US THYROID/PARATHYROID US SOFT TISSUE HEAD & NECK REAL TIME IMGE Connie Gabriel MD [address] [place] [address] [place] [address] Referral ID Status Reason Start Date Expiration Date V isits Requested Visits Authorized [id number] Closed Auto-Generate d Referral 08/06/2022 09/05/2023 1 1 [facility] for visit Narrative* Diagnostic Procedure Only (Routine) - Closed Specialty Diagnoses / Procedures Referred By Contac t Referred To Contact XR IMAGING Diagnoses Breakdown (mechanical) of urinary electronic stimulator device, initial encounter (HCC) Procedures XR PELVIS 1V LATERAL RADIOLOGIC EXAMINATION PELVIS 1/2 VIEWS Jeremy Chavez MD [address] [place] [address] [place] [address] Referral ID Status Reason Start Date Expiration Date V isits Requested Visits Authorized [id number] Closed Auto-Generate d Referral 10/23/2022 02/08/2023 1 1 [facility] for visit Narrative* Diagnostic Procedure Only (Urgent) - Closed Specialty Diagnoses / Procedures Referred By Michelle t Referred To Contact XR IMAGING Diagnoses Sacral neurostimulator in situ Post-operative state Procedures XR PELVIS 3V AP/INLET/OUTLET RADIOLOGIC EXAM PELVIS COMPL MINIMUM 3 VIEWS Jeremy Chavez MD [address] [phone] [place] [address] Referral ID Status Reason Start Date Expiration Date V isits Requested Visits Authorized [id number] Closed Auto-Generate d Referral 07/08/2022 08/07/2023 1 1 [facility] Advance Directives No Advanced Directives Records FoundDocuments on File 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 Date 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 Advance Directive(s) 04/04/2021 10:13 AM Advance Directive(s) 03/22/2021 7:48 AM Advance Directive(s) 03/14/2021 3:23 PM Advance Directive(s) 03/14/2021 3:26 PM Advance Directive(s) 12/24/2020 8:28 AM Advance Directive(s) 12/19/2020 2:39 PM Advance Directive(s) 08/27/2020 8:38 AM Advance Directive(s) 08/09/2020 2:32 PM Advance Directive(s) 07/18/2020 8:13 AM Advance Directive(s) 06/29/2020 11:15 AM Advance Directive(s) 05/23/2020 8:09 AM Advance Directive(s) 05/15/2020 3:13 PM Advance Directive(s) 11/21/2019 8:40 AM Advance Directive(s) 11/11/2019 11:22 AM Advance Directive(s) 08/01/2019 1:02 PM Advance Directive(s) 07/28/2019 1:47 PM Advance Directive(s) 07/25/2019 4:21 PM Advance Directive(s) 04/27/2019 8:19 AM Advance Directive(s) 04/13/2019 9:37 AM Advance Directive(s) 04/08/2019 1:28 PM Advance Directive(s) 12/20/2018 9:30 AM Advance Directive(s) 12/03/2018 1:05 PM Advance Directive(s) 11/23/2018 9:21 AM Advance Directive(s) 03/26/2018 12:55 PM Advance Directive(s) 03/12/2018 11:05 AM Advance Directive(s) 02/12/2018 11:53 AM Advance Directive(s) 09/07/2017 7:34 AM Advance Directive(s) 06/17/2017 1:15 PM Documents on File 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 Date 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 Advance Directive(s) 04/04/2021 10:13 AM Advance Directive(s) 03/22/2021 7:48 AM Advance Directive(s) 03/14/2021 3:23 PM Advance Directive(s) 03/14/2021 3:26 PM Advance Directive(s) 12/24/2020 8:28 AM Advance Directive(s) 12/19/2020 2:39 PM Advance Directive(s) 08/27/2020 8:38 AM Advance Directive(s) 08/09/2020 2:32 PM Advance Directive(s) 07/18/2020 8:13 AM Advance Directive(s) 06/29/2020 11:15 AM Advance Directive(s) 05/23/2020 8:09 AM Advance Directive(s) 05/15/2020 3:13 PM Advance Directive(s) 11/21/2019 8:40 AM Advance Directive(s) 11/11/2019 11:22 AM Advance Directive(s) 08/01/2019 1:02 PM Advance Directive(s) 07/28/2019 1:47 PM Advance Directive(s) 07/25/2019 4:21 PM Advance Directive(s) 04/27/2019 8:19 AM Advance Directive(s) 04/13/2019 9:37 AM Advance Directive(s) 04/08/2019 1:28 PM Advance Directive(s) 12/20/2018 9:30 AM Advance Directive(s) 12/03/2018 1:05 PM Advance Directive(s) 11/23/2018 9:21 AM Advance Directive(s) 03/26/2018 12:55 PM Advance Directive(s) 03/12/2018 11:05 AM Advance Directive(s) 02/12/2018 11:53 AM Advance Directive(s) 09/07/2017 7:34 AM Advance Directive(s) 06/17/2017 1:15 PM Reason for Referral Specialty Diagnoses / Procedures Referred By Contac t Referred To Contact General Surgery Diagnoses Goiter Multiple thyroid nodules Procedures CONSULT TO GENERAL SURGERY OFFICE/OUTPATIENT NEW HIGH MDM 60-74 MINUTES Stephanie Ladd APRN.COOK CANDY [address] [place] [address] Referral ID Status Reason Start Date Expiration Date Visits Requested Visits Authorized [id number] Pending Review PCP Requested Referral 05/15/2021 05/15/2022 1 1 Specialty Diagnoses / Procedures Referred By Contac t Referred To Contact [facility] Diagnoses Bilateral chronic knee pain 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 Procedures CONSULT TO PHYSICAL THERAPY PHYSICAL THERAPY EVALUATION HIGH COMPLEX 45 MINS Hitesh Maria, DO [address] [place] [address] [facility] [address] [place] [address] Referral ID Status Reason Start Date Expiration Date Visits Requested Visits Authorized [id number] Pending Review Auto-Generat ed Referral 2 12/03/2022 1 1 Specialty Diagnoses / Procedures Referred By Contac t Referred To Contact [facility] Diagnoses Overactive bladder Urge incontinence Procedures BOTULINUM TOXIN A PER 1 UNIT Jeremy Chavez MD [address] [place] [address] [facility] [address] [phone] Referral ID Status Reason Start Date Expiration Date V isits Requested Visits Authorized [id number] Closed Auto-Generate d Referral 03/01/2022 03/01/2022 1 1 Specialty Diagnoses / Procedures Referred By Contac t Referred To Contact Diagnoses Urge incontinence Jorge Webster APRN.MARCOS [address] [phone] Referral ID Status Reason Start Date Expiration Date V isits Requested Visits Authorized [id number] Pending Review 1 1 Chief Complaint Chief Complaint Description Start Date left shoulder pain Preliminary chief co mplaint data, not yet signed by the author as of Chief Complaint Description Start Date left shoulder pain Preliminary chief co mplaint data, not yet signed by the author as of Family History There may be information available, but it has not been provided by the sender.There may be information available, but it has not been provided by the sender.No Family History Records FoundNo Family History Records Found Medications Administered Section Inactive Administered Medications - up to 3 most recent administrations Medication Order MAR Action Action Date Dose Rate Site onabotulinum toxin type A 100 Units injection (BOTOX) 100 Units, INTRAMUSCULAR, ONCE, 1 dose, On 02/24/22 at 1600, This record documents the total dose provided to patient. See progress note for specific locations and amounts administered. REFRIGERATE - Pharmaceutical Waste: Lab Pack - Given 02/24/2022 3:59 PM EST 100 Units Other Inactive Administered Medications - up to 3 most recent administrations Medication Order MAR Action Action Date Dose Rate Site acetaminophen 1,000 mg tab(s) (TYLENOL) 1,000 mg, ORAL, PRE-OP ONCE, 1 dose, On Thu07/08/22 at 0630, If ordered PRN for pain, patient/guardian may elect to receive this medication for higher pain levels INSTEAD of the opioid, if preferred: Yes, Preprocedure Given 07/08/2022 7:00 AM EDT 1,000 mg celecoxib 200 mg cap(s) (CeleBREX) 200 mg, ORAL, PRE-OP ONCE, 1 dose, On Thu07/08/22 at 0630, Preprocedure Given 07/08/2022 7:00 AM EDT 200 mg lactated ringers iv infusion 5-30 mL/hr, INTRAVENOUS, CONTINUOUS, Starting on Thu07/08/22 at 0630, Until Thu07/09/22 at 0303, Preprocedure New Bag/Syringe/Bottle 07/08/2022 7:00 AM EDT 30 mL/hr 30 mL/hr lidocaine (PF) 10 mg/mL (1 %) 1-2 mg injection (XYLOCAINE) 1-2 mg (0.1-0.2 mL), INTRADERMAL, NEEDED, 1 dose, Starting on Thu07/08/22 at 0613, Until Thu07/09/22 at 0303, See admin instructions, May use prior to starting IV, Preprocedure NaCl 0.9% iv flush bag 20 mL, INTRAVENOUS, NEEDED, Starting on Thu07/08/22 at 0613, Until Thu07/09/22 at 0303, See admin instructions, If no compatible primary is already running, infuse NaCl 0.9% as primary to flush tubing after non-chemotherapy, non-immunotherapy intermittent infusions. Administer at the same rate as intermittent infusion. Select the Flush Bag file on smart pump., Preprocedure Inactive Administered Medications - up to 3 most recent administrations Medication Order MAR Action Action Date Dose Rate Site betamethasone acetate-betamethasone sodium phosphate 12 mg injection (CELESTONE) 12 mg, Injection - FOR ORTHO USE ONLY, ONCE, 1 dose, Starting on Jen 01/15/23 at 1113, Until Jen 01/15/23 at 1113 Given 01/15/2023 11:13 AM EST 12 mg Knee , Right lidocaine (PF) 10 mg/mL (1 %) 3 mL injection (XYLOCAINE) 3 mL, Injection - FOR ORTHO USE ONLY, ONCE, 1 dose, Starting on Jen 01/15/23 at 1113, Until Jen 01/15/23 at 1113 Given 01/15/2023 11:13 AM EST 3 mL Knee , Right Health Concerns Infection Onset Date Last Indicated Resolved Time COVID-19 Rule-Out 04/14/2022 04/14/2022 04/14/2022 7:14 PM EST Summary Purpose Additional Source Comments Source Comments (unrecognize d section and content) In the event this informatio n is protected by the Federal Confidentiality of Alcohol and Drug Abuse Patient Records regulations: The Federal rules restrict any use of the information to criminally investigate or prosecute any alcohol or drug abuse patient.[facility] the event this information is protected by the Federal Confidentiality of Alcohol and Drug Abuse Patient Records regulations: The Federal rules restrict any use of the information to criminally investigate or prosecute any alcohol or drug abuse patient.[facility] HospitalIn the event this information is protected by the Federal Confidentiality of Alcohol and Drug Abuse Patient Records regulations: The Federal rules restrict any use of the information to criminally investigate or prosecute any alcohol or drug abuse patient.[facility] the event this information is protected by the Federal Confidentiality of Alcohol and Drug Abuse Patient Records regulations: The Federal rules restrict any use of the information to criminally investigate or prosecute any alcohol or drug abuse patient.[facility] the event this information is protected by the Federal Confidentiality of Alcohol and Drug Abuse Patient Records regulations: The Federal rules restrict any use of the information to criminally investigate or prosecute any alcohol or drug abuse patient.[facility] the event this information is protected by the Federal Confidentiality of Alcohol and Drug Abuse Patient Records regulations: The Federal rules restrict any use of the information to criminally investigate or prosecute any alcohol or drug abuse patient.[facility] the event this information is protected by the Federal Confidentiality of Alcohol and Drug Abuse Patient Records regulations: The Federal rules restrict any use of the information to criminally investigate or prosecute any alcohol or drug abuse patient.[facility] the event this information is protected by the Federal Confidentiality of Alcohol and Drug Abuse Patient Records regulations: The Federal rules restrict any use of the information to criminally investigate or prosecute any alcohol or drug abuse patient.[facility] the event this information is protected by the Federal Confidentiality of Alcohol and Drug Abuse Patient Records regulations: The Federal rules restrict any use of the information to criminally investigate or prosecute any alcohol or drug abuse patient.[facility] HospitalIn the event this information is protected by the Federal Confidentiality of Alcohol and Drug Abuse Patient Records regulations: The Federal rules restrict any use of the information to criminally investigate or prosecute any alcohol or drug abuse patient.[facility]In the event this information is protected by the Federal Confidentiality of Alcohol and Drug Abuse Patient Records regulations: The Federal rules restrict any use of the information to criminally investigate or prosecute any alcohol or drug abuse patient.[facility] Hospital[facility] the event this information is protected by the Federal Confidentiality of Alcohol and Drug Abuse Patient Records regulations: The Federal rules restrict any use of the information to criminally investigate or prosecute any alcohol or drug abuse patient.[facility] HospitalIn the event this information is protected by the Federal Confidentiality of Alcohol and Drug Abuse Patient Records regulations: The Federal rules restrict any use of the information to criminally investigate or prosecute any alcohol or drug abuse patient.[facility] HospitalIn the event this information is protected by the Federal Confidentiality of Alcohol and Drug Abuse Patient Records regulations: The Federal rules restrict any use of the information to criminally investigate or prosecute any alcohol or drug abuse patient.[facility] Hospital[facility] the event this information is protected by the Federal Confidentiality of Alcohol and Drug Abuse Patient Records regulations: The Federal rules restrict any use of the information to criminally investigate or prosecute any alcohol or drug abuse patient.[facility] HospitalIn the event this information is protected by the Federal Confidentiality of Alcohol and Drug Abuse Patient Records regulations: The Federal rules restrict any use of the information to criminally investigate or prosecute any alcohol or drug abuse patient.[facility] HospitalIn the event this information is protected by the Federal Confidentiality of Alcohol and Drug Abuse Patient Records regulations: The Federal rules restrict any use of the information to criminally investigate or prosecute any alcohol or drug abuse patient.[facility] HospitalIn the event this information is protected by the Federal Confidentiality of Alcohol and Drug Abuse Patient Records regulations: The Federal rules restrict any use of the information to criminally investigate or prosecute any alcohol or drug abuse patient.[facility] HospitalIn the event this information is protected by the Federal Confidentiality of Alcohol and Drug Abuse Patient Records regulations: The Federal rules restrict any use of the information to criminally investigate or prosecute any alcohol or drug abuse patient.[facility] HospitalIn the event this information is protected by the Federal Confidentiality of Alcohol and Drug Abuse Patient Records regulations: The Federal rules restrict any use of the information to criminally investigate or prosecute any alcohol or drug abuse patient.[facility] HospitalIn the event this information is protected by the Federal Confidentiality of Alcohol and Drug Abuse Patient Records regulations: The Federal rules restrict any use of the information to criminally investigate or prosecute any alcohol or drug abuse patient.[facility] HospitalIn the event this information is protected by the Federal Confidentiality of Alcohol and Drug Abuse Patient Records regulations: The Federal rules restrict any use of the information to criminally investigate or prosecute any alcohol or drug abuse patient.[facility] HospitalIn the event this information is protected by the Federal Confidentiality of Alcohol and Drug Abuse Patient Records regulations: The Federal rules restrict any use of the information to criminally investigate or prosecute any alcohol or drug abuse patient.[facility]In the event this information is protected by the Federal Confidentiality of Alcohol and Drug Abuse Patient Records regulations: The Federal rules restrict any use of the information to criminally investigate or prosecute any alcohol or drug abuse patient.[facility] HospitalIn the event this information is protected by the Federal Confidentiality of Alcohol and Drug Abuse Patient Records regulations: The Federal rules restrict any use of the information to criminally investigate or prosecute any alcohol or drug abuse patient.[facility] HospitalIn the event this information is protected by the Federal Confidentiality of Alcohol and Drug Abuse Patient Records regulations: The Federal rules restrict any use of the information to criminally investigate or prosecute any alcohol or drug abuse patient.[facility] HospitalIn the event this information is protected by the Federal Confidentiality of Alcohol and Drug Abuse Patient Records regulations: The Federal rules restrict any use of the information to criminally investigate or prosecute any alcohol or drug abuse patient.[facility] HospitalIn the event this information is protected by the Federal Confidentiality of Alcohol and Drug Abuse Patient Records regulations: The Federal rules restrict any use of the information to criminally investigate or prosecute any alcohol or drug abuse patient.[facility] HospitalIn the event this information is protected by the Federal Confidentiality of Alcohol and Drug Abuse Patient Records regulations: The Federal rules restrict any use of the information to criminally investigate or prosecute any alcohol or drug abuse patient.[facility] HospitalIn the event this information is protected by the Federal Confidentiality of Alcohol and Drug Abuse Patient Records regulations: The Federal rules restrict any use of the information to criminally investigate or prosecute any alcohol or drug abuse patient.[facility] HospitalIn the event this information is protected by the Federal Confidentiality of Alcohol and Drug Abuse Patient Records regulations: The Federal rules restrict any use of the information to criminally investigate or prosecute any alcohol or drug abuse patient.[facility] HospitalIn the event this information is protected by the Federal Confidentiality of Alcohol and Drug Abuse Patient Records regulations: The Federal rules restrict any use of the information to criminally investigate or prosecute any alcohol or drug abuse patient.[facility] HospitalIn the event this information is protected by the Federal Confidentiality of Alcohol and Drug Abuse Patient Records regulations: The Federal rules restrict any use of the information to criminally investigate or prosecute any alcohol or drug abuse patient.[facility] HospitalIn the event this information is protected by the Federal Confidentiality of Alcohol and Drug Abuse Patient Records regulations: The Federal rules restrict any use of the information to criminally investigate or prosecute any alcohol or drug abuse patient.[facility] HospitalIn the event this information is protected by the Federal Confidentiality of Alcohol and Drug Abuse Patient Records regulations: The Federal rules restrict any use of the information to criminally investigate or prosecute any alcohol or drug abuse patient.[facility] HospitalIn the event this information is protected by the Federal Confidentiality of Alcohol and Drug Abuse Patient Records regulations: The Federal rules restrict any use of the information to criminally investigate or prosecute any alcohol or drug abuse patient.[facility] HospitalIn the event this information is protected by the Federal Confidentiality of Alcohol and Drug Abuse Patient Records regulations: The Federal rules restrict any use of the information to criminally investigate or prosecute any alcohol or drug abuse patient.[facility] HospitalIn the event this information is protected by the Federal Confidentiality of Alcohol and Drug Abuse Patient Records regulations: The Federal rules restrict any use of the information to criminally investigate or prosecute any alcohol or drug abuse patient.[facility] HospitalIn the event this information is protected by the Federal Confidentiality of Alcohol and Drug Abuse Patient Records regulations: The Federal rules restrict any use of the information to criminally investigate or prosecute any alcohol or drug abuse patient.[facility] HospitalIn the event this information is protected by the Federal Confidentiality of Alcohol and Drug Abuse Patient Records regulations: The Federal rules restrict any use of the information to criminally investigate or prosecute any alcohol or drug abuse patient.[facility] HospitalIn the event this information is protected by the Federal Confidentiality of Alcohol and Drug Abuse Patient Records regulations: The Federal rules restrict any use of the information to criminally investigate or prosecute any alcohol or drug abuse patient.[facility] HospitalIn the event this information is protected by the Federal Confidentiality of Alcohol and Drug Abuse Patient Records regulations: The Federal rules restrict any use of the information to criminally investigate or prosecute any alcohol or drug abuse patient.[facility] HospitalIn the event this information is protected by the Federal Confidentiality of Alcohol and Drug Abuse Patient Records regulations: The Federal rules restrict any use of the information to criminally investigate or prosecute any alcohol or drug abuse patient.[facility] HospitalIn the event this information is protected by the Federal Confidentiality of Alcohol and Drug Abuse Patient Records regulations: The Federal rules restrict any use of the information to criminally investigate or prosecute any alcohol or drug abuse patient.[facility] HospitalIn the event this information is protected by the Federal Confidentiality of Alcohol and Drug Abuse Patient Records regulations: The Federal rules restrict any use of the information to criminally investigate or prosecute any alcohol or drug abuse patient.[facility] HospitalIn the event this information is protected by the Federal Confidentiality of Alcohol and Drug Abuse Patient Records regulations: The Federal rules restrict any use of the information to criminally investigate or prosecute any alcohol or drug abuse patient.[facility] HospitalIn the event this information is protected by the Federal Confidentiality of Alcohol and Drug Abuse Patient Records regulations: The Federal rules restrict any use of the information to criminally investigate or prosecute any alcohol or drug abuse patient.[facility] HospitalIn the event this information is protected by the Federal Confidentiality of Alcohol and Drug Abuse Patient Records regulations: The Federal rules restrict any use of the information to criminally investigate or prosecute any alcohol or drug abuse patient.[facility] HospitalIn the event this information is protected by the Federal Confidentiality of Alcohol and Drug Abuse Patient Records regulations: The Federal rules restrict any use of the information to criminally investigate or prosecute any alcohol or drug abuse patient.[facility] HospitalIn the event this information is protected by the Federal Confidentiality of Alcohol and Drug Abuse Patient Records regulations: The Federal rules restrict any use of the information to criminally investigate or prosecute any alcohol or drug abuse patient.[facility] HospitalIn the event this information is protected by the Federal Confidentiality of Alcohol and Drug Abuse Patient Records regulations: The Federal rules restrict any use of the information to criminally investigate or prosecute any alcohol or drug abuse patient.[facility] HospitalIn the event this information is protected by the Federal Confidentiality of Alcohol and Drug Abuse Patient Records regulations: The Federal rules restrict any use of the information to criminally investigate or prosecute any alcohol or drug abuse patient.[facility] HospitalIn the event this information is protected by the Federal Confidentiality of Alcohol and Drug Abuse Patient Records regulations: The Federal rules restrict any use of the information to criminally investigate or prosecute any alcohol or drug abuse patient.[facility] HospitalIn the event this information is protected by the Federal Confidentiality of Alcohol and Drug Abuse Patient Records regulations: The Federal rules restrict any use of the information to criminally investigate or prosecute any alcohol or drug abuse patient.[facility] HospitalIn the event this information is protected by the Federal Confidentiality of Alcohol and Drug Abuse Patient Records regulations: The Federal rules restrict any use of the information to criminally investigate or prosecute any alcohol or drug abuse patient.[facility] HospitalIn the event this information is protected by the Federal Confidentiality of Alcohol and Drug Abuse Patient Records regulations: The Federal rules restrict any use of the information to criminally investigate or prosecute any alcohol or drug abuse patient.[facility] HospitalIn the event this information is protected by the Federal Confidentiality of Alcohol and Drug Abuse Patient Records regulations: The Federal rules restrict any use of the information to criminally investigate or prosecute any alcohol or drug abuse patient.[facility] HospitalIn the event this information is protected by the Federal Confidentiality of Alcohol and Drug Abuse Patient Records regulations: The Federal rules restrict any use of the information to criminally investigate or prosecute any alcohol or drug abuse patient.[facility] HospitalIn the event this information is protected by the Federal Confidentiality of Alcohol and Drug Abuse Patient Records regulations: The Federal rules restrict any use of the information to criminally investigate or prosecute any alcohol or drug abuse patient.[facility] HospitalIn the event this information is protected by the Federal Confidentiality of Alcohol and Drug Abuse Patient Records regulations: The Federal rules restrict any use of the information to criminally investigate or prosecute any alcohol or drug abuse patient.[facility] HospitalIn the event this information is protected by the Federal Confidentiality of Alcohol and Drug Abuse Patient Records regulations: The Federal rules restrict any use of the information to criminally investigate or prosecute any alcohol or drug abuse patient.[facility] HospitalIn the event this information is protected by the Federal Confidentiality of Alcohol and Drug Abuse Patient Records regulations: The Federal rules restrict any use of the information to criminally investigate or prosecute any alcohol or drug abuse patient.[facility] HospitalIn the event this information is protected by the Federal Confidentiality of Alcohol and Drug Abuse Patient Records regulations: The Federal rules restrict any use of the information to criminally investigate or prosecute any alcohol or drug abuse patient.[facility] HospitalIn the event this information is protected by the Federal Confidentiality of Alcohol and Drug Abuse Patient Records regulations: The Federal rules restrict any use of the information to criminally investigate or prosecute any alcohol or drug abuse patient.[facility] HospitalIn the event this information is protected by the Federal Confidentiality of Alcohol and Drug Abuse Patient Records regulations: The Federal rules restrict any use of the information to criminally investigate or prosecute any alcohol or drug abuse patient.[facility] HospitalIn the event this information is protected by the Federal Confidentiality of Alcohol and Drug Abuse Patient Records regulations: The Federal rules restrict any use of the information to criminally investigate or prosecute any alcohol or drug abuse patient.[facility] HospitalIn the event this information is protected by the Federal Confidentiality of Alcohol and Drug Abuse Patient Records regulations: The Federal rules restrict any use of the information to criminally investigate or prosecute any alcohol or drug abuse patient.[facility] HospitalIn the event this information is protected by the Federal Confidentiality of Alcohol and Drug Abuse Patient Records regulations: The Federal rules restrict any use of the information to criminally investigate or prosecute any alcohol or drug abuse patient.[facility] HospitalIn the event this information is protected by the Federal Confidentiality of Alcohol and Drug Abuse Patient Records regulations: The Federal rules restrict any use of the information to criminally investigate or prosecute any alcohol or drug abuse patient.[facility] HospitalIn the event this information is protected by the Federal Confidentiality of Alcohol and Drug Abuse Patient Records regulations: The Federal rules restrict any use of the information to criminally investigate or prosecute any alcohol or drug abuse patient.[facility] HospitalIn the event this information is protected by the Federal Confidentiality of Alcohol and Drug Abuse Patient Records regulations: The Federal rules restrict any use of the information to criminally investigate or prosecute any alcohol or drug abuse patient.[facility] HospitalIn the event this information is protected by the Federal Confidentiality of Alcohol and Drug Abuse Patient Records regulations: The Federal rules restrict any use of the information to criminally investigate or prosecute any alcohol or drug abuse patient.[facility] HospitalIn the event this information is protected by the Federal Confidentiality of Alcohol and Drug Abuse Patient Records regulations: The Federal rules restrict any use of the information to criminally investigate or prosecute any alcohol or drug abuse patient.[facility] HospitalIn the event this information is protected by the Federal Confidentiality of Alcohol and Drug Abuse Patient Records regulations: The Federal rules restrict any use of the information to criminally investigate or prosecute any alcohol or drug abuse patient.[facility] HospitalIn the event this information is protected by the Federal Confidentiality of Alcohol and Drug Abuse Patient Records regulations: The Federal rules restrict any use of the information to criminally investigate or prosecute any alcohol or drug abuse patient.[facility] HospitalIn the event this information is protected by the Federal Confidentiality of Alcohol and Drug Abuse Patient Records regulations: The Federal rules restrict any use of the information to criminally investigate or prosecute any alcohol or drug abuse patient.[facility] HospitalIn the event this information is protected by the Federal Confidentiality of Alcohol and Drug Abuse Patient Records regulations: The Federal rules restrict any use of the information to criminally investigate or prosecute any alcohol or drug abuse patient.[facility] HospitalIn the event this information is protected by the Federal Confidentiality of Alcohol and Drug Abuse Patient Records regulations: The Federal rules restrict any use of the information to criminally investigate or prosecute any alcohol or drug abuse patient.[facility] HospitalIn the event this information is protected by the Federal Confidentiality of Alcohol and Drug Abuse Patient Records regulations: The Federal rules restrict any use of the information to criminally investigate or prosecute any alcohol or drug abuse patient.[facility] HospitalIn the event this information is protected by the Federal Confidentiality of Alcohol and Drug Abuse Patient Records regulations: The Federal rules restrict any use of the information to criminally investigate or prosecute any alcohol or drug abuse patient.[facility] HospitalIn the event this information is protected by the Federal Confidentiality of Alcohol and Drug Abuse Patient Records regulations: The Federal rules restrict any use of the information to criminally investigate or prosecute any alcohol or drug abuse patient.[facility] HospitalIn the event this information is protected by the Federal Confidentiality of Alcohol and Drug Abuse Patient Records regulations: The Federal rules restrict any use of the information to criminally investigate or prosecute any alcohol or drug abuse patient.[facility] HospitalIn the event this information is protected by the Federal Confidentiality of Alcohol and Drug Abuse Patient Records regulations: The Federal rules restrict any use of the information to criminally investigate or prosecute any alcohol or drug abuse patient.[facility] HospitalIn the event this information is protected by the Federal Confidentiality of Alcohol and Drug Abuse Patient Records regulations: The Federal rules restrict any use of the information to criminally investigate or prosecute any alcohol or drug abuse patient.[facility] HospitalIn the event this information is protected by the Federal Confidentiality of Alcohol and Drug Abuse Patient Records regulations: The Federal rules restrict any use of the information to criminally investigate or prosecute any alcohol or drug abuse patient.[facility] HospitalIn the event this information is protected by the Federal Confidentiality of Alcohol and Drug Abuse Patient Records regulations: The Federal rules restrict any use of the information to criminally investigate or prosecute any alcohol or drug abuse patient.[facility] HospitalIn the event this information is protected by the Federal Confidentiality of Alcohol and Drug Abuse Patient Records regulations: The Federal rules restrict any use of the information to criminally investigate or prosecute any alcohol or drug abuse patient.[facility] HospitalIn the event this information is protected by the Federal Confidentiality of Alcohol and Drug Abuse Patient Records regulations: The Federal rules restrict any use of the information to criminally investigate or prosecute any alcohol or drug abuse patient.[facility] HospitalIn the event this information is protected by the Federal Confidentiality of Alcohol and Drug Abuse Patient Records regulations: The Federal rules restrict any use of the information to criminally investigate or prosecute any alcohol or drug abuse patient.[facility] HospitalIn the event this information is protected by the Federal Confidentiality of Alcohol and Drug Abuse Patient Records regulations: The Federal rules restrict any use of the information to criminally investigate or prosecute any alcohol or drug abuse patient.[facility] HospitalIn the event this information is protected by the Federal Confidentiality of Alcohol and Drug Abuse Patient Records regulations: The Federal rules restrict any use of the information to criminally investigate or prosecute any alcohol or drug abuse patient.[facility] HospitalIn the event this information is protected by the Federal Confidentiality of Alcohol and Drug Abuse Patient Records regulations: The Federal rules restrict any use of the information to criminally investigate or prosecute any alcohol or drug abuse patient.[facility] HospitalIn the event this information is protected by the Federal Confidentiality of Alcohol and Drug Abuse Patient Records regulations: The Federal rules restrict any use of the information to criminally investigate or prosecute any alcohol or drug abuse patient.[facility] HospitalIn the event this information is protected by the Federal Confidentiality of Alcohol and Drug Abuse Patient Records regulations: The Federal rules restrict any use of the information to criminally investigate or prosecute any alcohol or drug abuse patient.[facility] HospitalIn the event this information is protected by the Federal Confidentiality of Alcohol and Drug Abuse Patient Records regulations: The Federal rules restrict any use of the information to criminally investigate or prosecute any alcohol or drug abuse patient.[facility] HospitalIn the event this information is protected by the Federal Confidentiality of Alcohol and Drug Abuse Patient Records regulations: The Federal rules restrict any use of the information to criminally investigate or prosecute any alcohol or drug abuse patient.[facility] HospitalIn the event this information is protected by the Federal Confidentiality of Alcohol and Drug Abuse Patient Records regulations: The Federal rules restrict any use of the information to criminally investigate or prosecute any alcohol or drug abuse patient.[facility] HospitalIn the event this information is protected by the Federal Confidentiality of Alcohol and Drug Abuse Patient Records regulations: The Federal rules restrict any use of the information to criminally investigate or prosecute any alcohol or drug abuse patient.[facility] HospitalIn the event this information is protected by the Federal Confidentiality of Alcohol and Drug Abuse Patient Records regulations: The Federal rules restrict any use of the information to criminally investigate or prosecute any alcohol or drug abuse patient.[facility] HospitalIn the event this information is protected by the Federal Confidentiality of Alcohol and Drug Abuse Patient Records regulations: The Federal rules restrict any use of the information to criminally investigate or prosecute any alcohol or drug abuse patient.[facility] HospitalIn the event this information is protected by the Federal Confidentiality of Alcohol and Drug Abuse Patient Records regulations: The Federal rules restrict any use of the information to criminally investigate or prosecute any alcohol or drug abuse patient.[facility] HospitalIn the event this information is protected by the Federal Confidentiality of Alcohol and Drug Abuse Patient Records regulations: The Federal rules restrict any use of the information to criminally investigate or prosecute any alcohol or drug abuse patient.[facility] HospitalIn the event this information is protected by the Federal Confidentiality of Alcohol and Drug Abuse Patient Records regulations: The Federal rules restrict any use of the information to criminally investigate or prosecute any alcohol or drug abuse patient.[facility] HospitalIn the event this information is protected by the Federal Confidentiality of Alcohol and Drug Abuse Patient Records regulations: The Federal rules restrict any use of the information to criminally investigate or prosecute any alcohol or drug abuse patient.[facility] HospitalIn the event this information is protected by the Federal Confidentiality of Alcohol and Drug Abuse Patient Records regulations: The Federal rules restrict any use of the information to criminally investigate or prosecute any alcohol or drug abuse patient.[facility] HospitalIn the event this information is protected by the Federal Confidentiality of Alcohol and Drug Abuse Patient Records regulations: The Federal rules restrict any use of the information to criminally investigate or prosecute any alcohol or drug abuse patient.[facility] Reason for Visit (unrecogniz ed section and content) Reason Comments Results Reason Comments Surgical Followup was seen in urgent c are for uti , they feel she has a goiter Reason Comments Radiology US Specialty Diagnoses / Procedures Referred By Michelle drew Referred To Contact US IMAGING Diagnoses Goiter Procedures US THYROID/PARATHYROID US SOFT TISSUE HEAD & NECK REAL TIME IMGE Stephanie Schilling, NELLI[employer] [facility] [address] [place] [address] Us Imaging Referral ID Status Reason Start Date Expiration Date V isits Requested Visits Authorized [id number] Closed Auto-Generate d Referral 05/06/2021 06/05/2022 1 1 Reason Comments Opened In Error Reason Comments Results Appointment Reason For Visit Description Start Date Follow-up by complaint Preliminary reason f or visit data, not yet signed by the author as of left shoulder pain Reason Comments Consult Goiter Specialty Diagnoses / Procedures Referred By Contac t Referred To Contact General Surgery Diagnoses Goiter Multiple thyroid nodules Procedures CONSULT TO GENERAL SURGERY OFFICE/OUTPATIENT [facility] 60-74 MINUTES Stephanie Ladd APRN.[facility] [facility] [address] [place] [address] Referral ID Status Reason Start Date Expiration Date Visits Requested Visits Authorized [id number] Pending Review PCP Requested Referral 05/15/2021 05/15/2022 1 1 Reason For Visit Description Start Date Follow-up by complaint Preliminary reason f or visit data, not yet signed by the author as of left shoulder pain Reason Onset Date Comments Population Health Navigation Outreach 06/12/2021 [employer] Gaps Reason Comments Pre-Op Exam Reason Onset Date Comments Refill Request 10/07/2021 Reason Comments Urinary Problem urgency and burning x 1 day, right foot little toe pain x 1 day Reason Onset Date Comments Refill Request 10/16/2021 Reason Comments Established Patient Fracture Reason Comments Knee Pain Lft knee pain on out side of knee, also lft hip weakness feels like pops out down into leg Reason Comments Future Appointment Reason Comments F/U 3 Month Reason Comments Patient Update Reason Comments Appointment Reason Comments Patient Request Reason Comments Discussion About [facility] Dr. Barahona dx this. Reason Onset Date Comments Refill Request 12/14/2021 Reason Onset Date Comments Refill Request 12/19/2021 Reason Onset Date Comments Refill Request 12/21/2021 Reason Comments Established Patient Pain Reason Comments Musculoskeletal Problem Reason Comments Botox Injection Reason Comments Procedure Cystoscopy with Boto x Specialty Diagnoses / Procedures Referred By Contac t Referred To Contact [facility] Diagnoses Overactive bladder Urge incontinence Procedures BOTULINUM TOXIN A PER 1 UNIT Jeremy Chavez MD [id number] [place] [address] Referral ID Status Reason Start Date Expiration Date V isits Requested Visits Authorized [id number] Closed Auto-Generate d Referral 03/01/2022 03/01/2022 1 1 Reason Comments F/U 3 Month Raynaud's- Appt with rheumatology 04/01 & bradycardia Reason Comments Spirometry Specialty Diagnoses / Procedures Referred By Contac t Referred To Contact [facility] Diagnoses Mild intermittent asthma in adult without complication Procedures SPIROMETRY - BASELINE AND POST DILATOR BRNCDILAT RSPSE SPMTRY PRE&POST-BRNCDILAT ADMN Nya Barba, NELLI.COOK CANDY [address] [place] [address] [place] [address] Referral ID Status Reason Start Date Expiration Date V isits Requested Visits Authorized [id number] Closed Auto-Generate d Referral 03/12/2022 04/11/2023 1 1 Reason Onset Date Comments Refill Request 03/20/2022 Reason Comments Follow Up Reason Comments Refill Request Reason Comments New Patient Reason Onset Date Comments Refill Request 04/10/2022 Reason Onset Date Comments Refill Request 04/11/2022 Reason Comments Medication Problem Reason Comments PT Discharge Specialty Diagnoses / Procedures Referred By Michelle t Referred To Contact Physical Therapy / PHYSICAL THERAPY Diagnoses (L85.9) Hyperkeratosis (M76.821) Posterior tibial tendinitis of right leg (E11.49) Other diabetic neurological complication associated with type 2 diabetes mellitus (HCC) Procedures NEW RS PT ORTHOTIC Petra Langley [address] [place] [address] Sigifredo Paris PT [address] [place] [address] Referral ID Status Reason Start Date Expiration Date V isits Requested Visits Authorized [id number] Authorized 02/09/2022 02/08/2023 99 99 Reason Comments Overactive Bladder Reason Onset Date Comments Refill Request 05/03/2022 Reason Comments Vaginal Problem Reason Comments Urinary Problem Reason Onset Date Comments Population Health Navigation Outreach 05/26/2022 [employer] Gaps 4.5.23 Reason Comments Pre-Op Teaching Reason Comments Consult Reason Onset Date Comments Refill Request 06/01/2022 Specialty Diagnoses / Procedures Referred By Michelle t Referred To Contact Diagnoses Sacral neurostimulator in situ Postoperative pain Preoperative examination Procedures INSERTION/RPLCMT PERIPHERAL/GASTRIC NPGR REVJ/RMVL PERIPHERAL NEUROSTIMULATOR ELECTRODE FLUOR NEEDLE/CATH SPINE/PARASPINAL DX/THER ADDON REPLACE STIMULATOR GENERATOR BLADDER REMOVE STIMULATOR LEAD BLADDER FLUOROSCOPIC GUIDANCE/LOCALIZATION OF NEEDLE/CATHETER TIP FOR DIAG OR THERAPUETIC SPINE/PARASPINOUS INJECTION PROCEDURES [facility] [address] [place] [address] Referral ID Status Reason Start Date Expiration Date Visits Re quested Visits Authorized [id number] 1 1 Reason Comments Knee Pain Reason Comments Procedure Reason Comments Thyroid Problem Goiter; swelling mid dle of neck x 1 week with increased fatigue Reason Comments correcte lab result Reason Onset Date Comments Refill Request 08/10/2022 Reason Onset Date Comments Refill Request 08/22/2022 Reason Comments Medicare Wellness Exam Reason Comments Established Patient Follow Up Knee Pain Reason Comments Trauma Left hip pain, fell x 1 weekSore throat, congestion x 6 days Reason Comments Urinary Problem Frequency, burning x 3 days Reason Comments Results Urine Cx=E coli Reason Comments heart rate concern Reason Comments Urinary Problem Reason Comments Established Patient Reason Comments Patient Question Specialty Diagnoses / Procedures Referred By Michelle t Referred To Contact US IMAGING Diagnoses Multiple thyroid nodules Goiter Procedures US THYROID/PARATHYROID US SOFT TISSUE HEAD & NECK REAL TIME IMGE Hitesh Rueda L, DO [address] [place] [address] [place] [id number] Referral ID Status Reason Start Date Expiration Date V isits Requested Visits Authorized [id number] Closed Auto-Generate d Referral 05/02/2022 08/02/2022 1 1 Reason Comments Radio Gen RMP Specialty Diagnoses / Procedures Referred By Michelle t Referred To Contact XR IMAGING Diagnoses Right lumbar radiculitis Lumbar radiculopathy Spinal stenosis, lumbar region with neurogenic claudication Lumbar spondylosis Myofascial pain Procedures XR LUMBAR LIMITED 2V AP/LAT X-RAY L-S SPINE AP/LATERAL Demicco, Jamil, DO [address] [place] [address] [place] [id number] Referral ID Status Reason Start Date Expiration Date V isits Requested Visits Authorized [id number] Closed Auto-Generate d Referral 02/07/2021 03/09/2022 1 1 Reason Comments Appointment Appointment on Reason Comments Mouth/Lip Problem Possible thrush x 1 week Care Teams (unrecognized sec tion and content) Global Marketing Specialist Relationship Specialty Start Date End Date Hitesh Maria, DO [address] [facility] [place] [address] PCP - General Family Practice 06/15/20 Florian Grover MD, MD [address] [place] [address] Physician Radiation Oncology 01/05/15 Global Marketing Specialist Relationship Specialty Start Date End Date Hitesh Maria, DO [address] [facility] [place] [address] PCP - General Family Practice 06/15/20 Florian Grover MD, MD [address] [place] [address] Physician Radiation Oncology 01/05/15 Global Marketing Specialist Relationship Specialty Start Date End Date Hitesh Maria, DO [address] [facility] [place] [address] PCP - General Family Practice 06/15/20 Florian Grover MD, MD [address] [facility] [place] [address] Physician Radiation Oncology 01/05/15 Global Marketing Specialist Relationship Specialty Start Date End Date Hitesh Maria, DO [address] [facility] [place] [address] PCP - General Family Practice 06/15/20 Florian Grover MD, MD [address] [place] [address] Physician Radiation Oncology 01/05/15 Global Marketing Specialist Relationship Specialty Start Date End Date Hitesh Maria, DO [address] [place] [address] PCP - General Family Practice 06/15/20 Florian Grover MD, [address] [place] [address] Physician Radiation Oncology 01/05/15 Global Marketing Specialist Relationship Specialty Start Date End Date Hitesh Maria, DO [address] [place] [address] PCP - General Family Practice 06/15/20 Florian Grover MD, [address] [place] [address] Physician Radiation Oncology 01/05/15 Global Marketing Specialist Relationship Specialty Start Date End Date Hitesh Maria, DO [address] [place] [address] PCP - General Family Practice 06/15/20 Florian Grover MD, [address] [place] [address] Physician Radiation Oncology 01/05/15 Global Marketing Specialist Relationship Specialty Start Date End Date Hitesh Maria, DO [address] [place] [address] PCP - General Family Practice 06/15/20 Florian Grover MD, [address] [place] [address] Physician Radiation Oncology 01/05/15 Global Marketing Specialist Relationship Specialty Start Date End Date Hitesh Maria, DO [address] [place] [address] PCP - General Family Practice 06/15/20 Florian Grover MD, [address] [place] [address] Physician Radiation Oncology 01/05/15 Global Marketing Specialist Relationship Specialty Start Date End Date Hitesh Maria, DO [address] [place] [address] PCP - General Family Practice 06/15/20 Florian Grover MD, [address] [place] [address] Physician Radiation Oncology 01/05/15 Global Marketing Specialist Relationship Specialty Start Date End Date Hitesh Maria, DO [address] [place] [address] PCP - General Family Practice 06/15/20 Florian Grover MD, [address] [place] [address] Physician Radiation Oncology 01/05/15 Global Marketing Specialist Relationship Specialty Start Date End Date Hitesh Maria, DO [address] [place] [address] PCP - General Family Medicine 06/15/20 Florian Grover MD, [address] [place] [address] Physician Radiation Oncology 01/05/15 Global Marketing Specialist Relationship Specialty Start Date End Date Hitesh Maria, DO [address] [place] [address] PCP - General Family Medicine 06/15/20 Florian Grover MD, [address] [place] [address] Physician Radiation Oncology 01/05/15 Global Marketing Specialist Relationship Specialty Start Date End Date Hitesh Maria, DO [address] [place] [address] PCP - General Family Medicine 06/15/20 Florian Grover MD, [address] [place] [address] Physician Radiation Oncology 01/05/15 Global Marketing Specialist Relationship Specialty Start Date End Date Hitesh Maria, DO [address] [place] [address] PCP - General Family Medicine 06/15/20 Florian Grover MD, [address] [place] [address] Physician Radiation Oncology 01/05/15 Global Marketing Specialist Relationship Specialty Start Date End Date Hitesh Maria, DO [address] [place] [address] PCP - General Family Medicine 06/15/20 Florian Grover MD, [address] [place] [address] Physician Radiation Oncology 01/05/15 Global Marketing Specialist Relationship Specialty Start Date End Date Hitesh Maria, DO [address] [place] [address] PCP - General Family Medicine 06/15/20 Florian Grover MD, [address] [place] [address] Physician Radiation Oncology 01/05/15 Global Marketing Specialist Relationship Specialty Start Date End Date Hitesh Maria, DO [address] [place] [address] PCP - General Family Medicine 06/15/20 Florian Grover MD, [address] [place] [address] Physician Radiation Oncology 01/05/15 Global Marketing Specialist Relationship Specialty Start Date End Date Hitesh Maria, DO [address] [place] [address] PCP - General Family Medicine 06/15/20 Florian Grover MD, [address] [place] [address] Physician Radiation Oncology 01/05/15 Global Marketing Specialist Relationship Specialty Start Date End Date Hitesh Maria, DO [address] [place] [address] PCP - General Family Medicine 06/15/20 Florian Grover MD, [address] [place] [address] Physician Radiation Oncology 01/05/15 Global Marketing Specialist Relationship Specialty Start Date End Date Hitesh Maria, DO [address] [place] [address] PCP - General Family Medicine 06/15/20 Florian Grover MD, [address] [place] [address] Physician Radiation Oncology 01/05/15 Global Marketing Specialist Relationship Specialty Start Date End Date Hitesh Maria, DO [address] [place] [address] PCP - General Family Medicine 06/15/20 Florian Grover MD, [address] [place] [address] Physician Radiation Oncology 01/05/15 Global Marketing Specialist Relationship Specialty Start Date End Date Hitesh Maria, DO [address] [place] [address] PCP - General Family Medicine 06/15/20 Florian Grover MD, [address] [place] [address] Physician Radiation Oncology 01/05/15 Global Marketing Specialist Relationship Specialty Start Date End Date Hitesh Maria, DO [address] [place] [address] PCP - General Family Medicine 06/15/20 Florian Grover MD, [address] [place] [address] Physician Radiation Oncology 01/05/15 Global Marketing Specialist Relationship Specialty Start Date End Date Hitesh Maria, DO [address] [place] [address] PCP - General Family Medicine 06/15/20 Florian Grover MD, [address] [place] [address] Physician Radiation Oncology 01/05/15 Global Marketing Specialist Relationship Specialty Start Date End Date Hitesh Maria, DO [address] [place] [address] PCP - General Family Medicine 06/15/20 Florian Grover MD, [address] [place] [address] Physician Radiation Oncology 01/05/15 Global Marketing Specialist Relationship Specialty Start Date End Date Hitesh Maria, DO [address] [place] [address] PCP - General Family Medicine 06/15/20 Florian Grover MD, [address] [place] [address] Physician Radiation Oncology 01/05/15 Global Marketing Specialist Relationship Specialty Start Date End Date Hitesh Maria, DO [address] [place] [address] PCP - General Family Medicine 06/15/20 Florian Grover MD, [address] [place] [address] Physician Radiation Oncology 01/05/15 Global Marketing Specialist Relationship Specialty Start Date End Date Hitesh Maria, DO [address] [place] [address] PCP - General Family Medicine 06/15/20 Florian Grover MD, [address] [place] [address] Physician Radiation Oncology 01/05/15 Global Marketing Specialist Relationship Specialty Start Date End Date Hitesh Maria, DO [address] [place] [address] PCP - General Family Medicine 06/15/20 Florian Grover MD, [address] [place] [address] Physician Radiation Oncology 01/05/15 Global Marketing Specialist Relationship Specialty Start Date End Date Hitesh Maria, DO [address] [place] [address] PCP - General Family Medicine 06/15/20 Florian Grover MD, [address] [place] [address] Physician Radiation Oncology 01/05/15 Global Marketing Specialist Relationship Specialty Start Date End Date Hitesh Maria, DO [address] [place] [address] PCP - General Family Medicine 06/15/20 Florian Grover MD, [address] [place] [address] Physician Radiation Oncology 01/05/15 Global Marketing Specialist Relationship Specialty Start Date End Date Hitesh Maria, DO [address] [place] [address] PCP - General Family Medicine 06/15/20 Florian Grover MD, [address] [place] [address] Physician Radiation Oncology 01/05/15 Global Marketing Specialist Relationship Specialty Start Date End Date Hitesh Maria, DO [address] [place] [address] PCP - General Family Medicine 06/15/20 Florian Grover MD, [address] [place] [address] Physician Radiation Oncology 01/05/15 Global Marketing Specialist Relationship Specialty Start Date End Date Hitesh Maria, DO [address] [place] [address] PCP - General Family Medicine 06/15/20 Florian Grover MD, [address] [place] [address] Physician Radiation Oncology 01/05/15 Global Marketing Specialist Relationship Specialty Start Date End Date Hitesh Maria, DO [address] [place] [address] PCP - General Family Medicine 06/15/20 Florian Grover MD, [address] [place] [address] Physician Radiation Oncology 01/05/15 Global Marketing Specialist Relationship Specialty Start Date End Date Hitesh Maria, DO [address] [place] [address] PCP - General Family Medicine 06/15/20 Florian Grover MD, [address] [place] [address] Physician Radiation Oncology 01/05/15 Global Marketing Specialist Relationship Specialty Start Date End Date Hitesh Maria, DO [address] [place] [address] PCP - General Family Medicine 06/15/20 Florian Grover MD, [address] [place] [address] Physician Radiation Oncology 01/05/15 Global Marketing Specialist Relationship Specialty Start Date End Date Hitesh Maria, DO [address] [place] [address] PCP - General Family Medicine 06/15/20 Florian Grover MD, [address] [place] [address] Physician Radiation Oncology 01/05/15 Global Marketing Specialist Relationship Specialty Start Date End Date Hitesh Maria, DO [address] [place] [address] PCP - General Family Medicine 06/15/20 Florian Grover MD, [address] [place] [address] Physician Radiation Oncology 01/05/15 Global Marketing Specialist Relationship Specialty Start Date End Date Hitesh Maria, DO [address] [place] [address] PCP - General Family Medicine 06/15/20 Florian Grover MD, [address] [place] [address] Physician Radiation Oncology 01/05/15 Global Marketing Specialist Relationship Specialty Start Date End Date Hitesh Maria, DO [address] [place] [address] PCP - General Family Medicine 06/15/20 Florian Grover MD, [address] [place] [address] Physician Radiation Oncology 01/05/15 Global Marketing Specialist Relationship Specialty Start Date End Date Hitesh Maria, DO [address] [place] [address] PCP - General Family Medicine 06/15/20 Florian Grover MD, [address] [place] [address] Physician Radiation Oncology 01/05/15 Global Marketing Specialist Relationship Specialty Start Date End Date Hitesh Maria, DO [address] [place] [address] PCP - General Family Medicine 06/15/20 Florian Grover MD, [address] [place] [address] Physician Radiation Oncology 01/05/15 Global Marketing Specialist Relationship Specialty Start Date End Date Hitesh Maria, DO [address] [place] [address] PCP - General Family Medicine 06/15/20 Florian Grover MD, [address] [place] [address] Physician Radiation Oncology 01/05/15 Global Marketing Specialist Relationship Specialty Start Date End Date Hitesh Maria, DO [address] [place] [address] PCP - General Family Medicine 06/15/20 Florian Grover MD, [address] [place] [address] Physician Radiation Oncology 01/05/15 Global Marketing Specialist Relationship Specialty Start Date End Date Hitesh Maria DO [address] [place] [address] PCP - General Family Medicine 06/15/20 Florian Grover MD, [address] [place] [address] Physician Radiation Oncology 01/05/15 Global Marketing Specialist Relationship Specialty Start Date End Date Hitesh Maria DO [address] [place] [address] PCP - General Family Medicine 06/15/20 Florian Grover MD, [address] [place] [address] Physician Radiation Oncology 01/05/15 Global Marketing Specialist Relationship Specialty Start Date End Date Hitesh Maria DO [address] [place] [address] PCP - General Family Medicine 06/15/20 Florian Grover MD, [address] [place] [address] Physician Radiation Oncology 01/05/15 Global Marketing Specialist Relationship Specialty Start Date End Date Hitesh Maria DO [address] [place] [address] PCP - General Family Medicine 06/15/20 Florian Grover MD, [address] [place] [address] Physician Radiation Oncology 01/05/15 Global Marketing Specialist Relationship Specialty Start Date End Date Hitesh Maria DO [address] [place] [address] PCP - General Family Medicine 06/15/20 Florian Grover MD, [address] [place] [address] Physician Radiation Oncology 01/05/15 Global Marketing Specialist Relationship Specialty Start Date End Date Hitesh Maria DO [address] [place] [address] PCP - General Family Medicine 06/15/20 Florian Grover MD, [address] [place] [address] Physician Radiation Oncology 01/05/15 Global Marketing Specialist Relationship Specialty Start Date End Date Hitesh Maria DO [address] [place] [address] PCP - General Family Medicine 06/15/20 Florian Grover MD, [address] [place] [address] Physician Radiation Oncology 01/05/15 Global Marketing Specialist Relationship Specialty Start Date End Date Hitesh Maria DO [address] [place] [address] PCP - General Family Medicine 06/15/20 Florian Grover MD, [address] [place] [address] Physician Radiation Oncology 01/05/15 Global Marketing Specialist Relationship Specialty Start Date End Date Hitesh Maria DO [address] [place] [address] PCP - General Family Medicine 06/15/20 Florian Grover MD, [address] [place] [address] Physician Radiation Oncology 01/05/15 Global Marketing Specialist Relationship Specialty Start Date End Date Hitesh Maria DO [address] [place] [address] PCP - General Family Medicine 06/15/20 Florian Grover MD, [address] [place] [address] Physician Radiation Oncology 01/05/15 Global Marketing Specialist Relationship Specialty Start Date End Date Hitesh Maria DO [address] [place] [address] PCP - General Family Medicine 06/15/20 Florian Grover MD, [address] [place] [address] Physician Radiation Oncology 01/05/15 Global Marketing Specialist Relationship Specialty Start Date End Date Hitesh Maria DO [address] [place] [address] PCP - General Family Medicine 06/15/20 Florian Grover MD, [address] [place] [address] Physician Radiation Oncology 01/05/15 Global Marketing Specialist Relationship Specialty Start Date End Date Hitesh Maria DO [address] [place] [address] PCP - General Family Medicine 06/15/20 Florian Grover MD, [address] [place] [address] Physician Radiation Oncology 01/05/15 Global Marketing Specialist Relationship Specialty Start Date End Date Hitesh Maria DO [address] [facility] [place] [address] PCP - General Family Medicine 06/15/20 Florian Grover MD, [address] [place] [address] Physician Radiation Oncology 01/05/15 Global Marketing Specialist Relationship Specialty Start Date End Date Hitesh Maria DO [address] [facility] [place] [address] PCP - General Family Medicine 06/15/20 Florian Grover MD, [address] [place] [address] Physician Radiation Oncology 01/05/15 Global Marketing Specialist Relationship Specialty Start Date End Date Hitesh Maria DO [address] [facility] [place] [address] PCP - General Family Medicine 06/15/20 Florian Grover MD, [address] [place] [address] Physician Radiation Oncology 01/05/15 Global Marketing Specialist Relationship Specialty Start Date End Date Hitesh Maria DO [address] [place] [address] PCP - General Family Medicine 06/15/20 Florian Grover MD, [address] [place] [address] Physician Radiation Oncology 01/05/15 Global Marketing Specialist Relationship Specialty Start Date End Date Hitesh Maria DO [address] [place] [address] PCP - General Family Medicine 06/15/20 Florian Grover MD, [address] [place] [address] Physician Radiation Oncology 01/05/15 Global Marketing Specialist Relationship Specialty Start Date End Date Hitesh Maria DO [address] [place] [address] PCP - General Family Medicine 06/15/20 Florian Grover MD, [address] [place] [address] Physician Radiation Oncology 01/05/15 Global Marketing Specialist Relationship Specialty Start Date End Date Hitesh Maria DO [address] [place] [address] PCP - General Family Medicine 06/15/20 Florian Grover MD, [address] [facility] [place] [address] Physician Radiation Oncology 01/05/15 Global Marketing Specialist Relationship Specialty Start Date End Date Hitesh Maria DO [address] [place], [place] [address] [phone] PCP - General Family Medicine 06/15/20 Florian Grover MD, [address] [place] [address] Physician Radiation Oncology 01/05/15 Global Marketing Specialist Relationship Specialty Start Date End Date Hitesh Maria DO [address] [place], [place] [address] PCP - General Family Medicine 06/15/20 Florian Grover MD, [address] [place], [place] [address] [phone] Physician Radiation Oncology 01/05/15 Global Marketing Specialist Relationship Specialty Start Date End Date Hitesh Maria DO [address] [place], [place] [address] PCP - General Family Medicine 06/15/20 Florian Grover MD, [address] [place] [address] Physician Radiation Oncology 01/05/15 Scheduled Active and Recently Administ ered Medications (unrecognized section and content) Continuous Medication Order 07/06/2022 07/07/2022 07/08/2022 lactated ringers iv infusion 5-30 mL/hr, INTRAVENOUS, CONTINUOUS, Starting on Thu07/08/22 at 0630, Until Thu07/09/22 at 0303, Preprocedure 0700 (New Bag/Syring e/Bottle - Provider: Gigi Marcelino RN) PRN Medication Order 07/06/2022 07/07/2022 07/08/2022 lidocaine (PF) 10 mg/mL (1 %) 1-2 mg injection (XYLOCAINE) 1-2 mg (0.1-0.2 mL), INTRADERMAL, NEEDED, 1 dose, Starting on Thu07/08/22 at 0613, Until Thu07/09/22 at 030, See admin instructions, May use prior to starting IV, Preprocedure NaCl 0.9% iv flush bag 20 mL, INTRAVENOUS, NEEDED, Starting on Thu07/08/22 at 06, Until Thu07/09/22 at 030, See admin instructions, If no compatible primary is already running, infuse NaCl 0.9% as primary to flush tubing after non-chemotherapy, non-immunotherapy intermittent infusions. Administer at the same rate as intermittent infusion. Select the Flush Bag file on smart pump., Preprocedure INFORMATION SOURCE (unrecogn ized section and content) DATE CREATED AUTHOR AUTHOR'S ORGANIZ ATION 03/01/2023 [facility] FOR RECORDS PERTAINING TO PATIENTS WHO ARE OR HAVE BEEN ENROLLED IN A CHEMICAL DEPENDENCY/SUBSTANCEABUSE PROGRAM, SOME INFORMATION MAY BE OMITTED. This clinical summary was aggregated from multiple sources. Caution should be exercised in using it in the provision of clinical care. This summary normalizes information from multiple sources, and as a consequence, information in this document may materially change the coding, format and clinical context of patient data. In addition, data may be omitted in some cases. CLINICAL DECISIONS SHOULD BE BASED ON THE PRIMARY CLINICAL RECORDS. [email or web address] provides no warranty or guarantee of the accuracy or completeness of information in this document.
[2023-03-03] MEDS: Zolpidem Tartrate 5 MG Tablet PO (21:45)
== END | disposition home or self-care (01) ==
LOC: SL 19:58
PROVIDERS: PCP Student in an Organized Health Care Education/Training Program
DX: G47.30 Sleep apnea, unspecified (principal); G47.19 Other hypersomnia; R06.83 Snoring
CPT/HCPCS: 95810

== ENCOUNTER 2023-09-16 11:30 | Outpatient (RCR) | payer MEDICARE, SELFPAY ==
--- NOTE | 2023-08-21 08:49 | HP.PTEVAL ---
Patient's Visit Information Visit Information Visit Information: FROY PITTMAN is a 68 year old F referred to Physical Therapy by JAMIL BUSTOS with a diagnosis of Back pain. Date of Evaluation: 08/21/23 Physical Therapist: LATOSHA Galarza Visit Plan Frequency: 2x /Week Duration: 2 Months Plan: 2X/ week for 8 weeks for Neutral spine core stability, LTR stretching, hip strength with HEP HEP: PT and LTR Subjective Subjective: She has had back issues for year. She heard it crack on the R hip area and then she felt pain in her upper low back and felt it shift and then it stayed there. She takes Gabapentin, muscle relaxer, Mobic, Advil, and extra strength Tylenol and that is not helping. It lets her know when she transitions and it is pain in her back. Mainly in the back and occ down the HS on the R side. The L feels different than the R. She is able to sit with not too much pain. They did not do an x-ray this time. She does have Arthritis in her back. She is having trouble laundry, getting up from sitting, getting dressed, in and out of bed. She does not do too many stairs. Her back hurts the longer she walks. She has a lumbar injection at the beginning of June and it lasted 3 weeks. She has been doing dry needling but has not been there for 3 months. She goes back Sep 26 for dry needling. Pain Back Pain: Pain Intensity (Out of 10): 7 Objective Objective: Gait: walks with decrease stride length and decrease hip ext Trunk AROM: flex 50% B, Ext 10%, Rot B 25% B LE MMT: R hip flex 3-/5 B R knee ext 4-/5 B R knee flex 4-/5 Supine hip abd R 4- B Bridges X 1 (1/2 normal ROM) Patellar DTR: 2+/3 B Standing heel and toe raises: Pt is able to walk on heels and toes SLR - B but does have some hamstring tightness LTR and Pelvic tilts were fine and did not cause pain Balance/Special Test Scores Oswestry Low Back Score: 17 Goals Goal 1:: I HEP Goal Time Frame: 6-8 Weeks Goal 2:: Decrease back pain to 2/10 with ADLS down from a 7/10 currently on a daily basis Goal Time Frame: 6-8 Weeks Goal 3:: Increase Trunk AROM pain free (at the time of the eval: Trunk AROM: flex 50% B, Ext 10%, Rot B 25% B). Goal Time Frame: 6-8 Weeks Goal 4:: Increase Bridge ROM to 3/4 normal ROM Goal Time Frame: 6-8 Weeks Rehabilitation Potential Rehabilitation Potential: Good Anticipated Interventions Patient/Client Instruction: Educate patient on: Condition and Plan of Care For the Purpose of:: To decrease pain, To increase ROM, To improve nutrient delivery to tissue, To improve muscle performance and motor function, To improve ability to perform ADL's, To increase tolerance to activity/condition/position, To improve performance and independence with ADL's, To decrease level of supervision to perform tasks, To improve ability of physical actions for home/community/work/leisure, To improve gait and locomotor functions, To improve health of tissue, To decrease soft tissue restriction and To increase flexibility/ROM Therapeutic Exercise to Include: Strength training, Postural training, Flexibilty training, Gait and locomotor training, Neuromotor development and Dynamic Lumbar Stabilization For the Purpose of:: To decrease pain, To increase ROM, To improve nutrient delivery to tissue, To improve muscle performance and motor function, To improve ability to perform ADL's, To increase tolerance to activity/condition/position, To improve performance and independence with ADL's, To decrease level of supervision to perform tasks, To improve ability of physical actions for home/community/work/leisure, To improve health of tissue, To decrease soft tissue restriction and To increase flexibility/ROM Manual Therapy Techniques to Include: Passive ROM and Soft tissue mobilization For the Purpose of:: To decrease pain, To decrease swelling/inflammation, To increase ROM, To improve nutrient delivery to tissue and To improve muscle performance and motor function Cryotherapy (ice pack, ice massage): Yes Thermo therapy (hot pack): Yes For the Purpose of:: To decrease pain, To decrease swelling/inflammation, To increase ROM and To improve nutrient delivery to tissue Text: Thank you for the opportunity to evaluate your patient. For Medicare and Medicare HMO plans, please review the plan of care and approve it. It will need to be FAXED BACK to us at [phone] for Medicare purposes. For Medicare only, by signing this I certify the plan of care. Please let me know if there are questions or concerns regarding this plan of care. Physician Signature: Date:
--- NOTE | 2023-09-16 11:53 | HP.PTDCSUM ---
Discharge Summary D/C summary: It has been my pleasure to treat FROY PITTMAN referred by JAMIL BUSTOS, with the diagnosis of Back pain for a total of 9 visit(s). Discharge Date: 09/16/23 Please see the following information for a summary of their discharge status. Subjective Subjective: Pt is no better. She is going to go back to her DN person and then has an appt with her back surgeon the beginning of Oct. She still is cracking and popping with movement. Pt still has trouble getting out of bed in the morning. Pain Back Pain: Pain Intensity (Out of 10): 8 L kwan: Pain Intensity (Out of 10): 0 Overall Improvement % Improvement: 0 Objective Objective/Function: Trunk AROM: flex 75% B, Ext 20%, Rot B 50% B. Bridge X 10 at 3/4-full ROM Pain is still present and not progressing Goals Goal 1:: I HEP Goal Progress: Goal Met Goal 2:: Decrease back pain to 2/10 with ADLS down from a 7/10 currently on a daily basis Goal Progress: Not Progressing Goal 3:: Increase Trunk AROM pain free (at the time of the eval: Trunk AROM: flex 50% B, Ext 10%, Rot B 25% B). Goal Progress: Progressing Goal 4:: Increase Bridge ROM to 3/4 normal ROM Goal Progress: Progressing Plan Plan: Discharge PT at this time and go back to Dr. Delgadillo Information Discharge Comments: DC PT back to Dr delgadillo sentence: If there are questions or concerns regarding this patient's physical therapy, please feel free to call me at [phone]. Thank you for the referral of this patient. Sincerely, Elis Connors, MPT Balance/Gait/Functional tests Balance/Special Test Scores Oswestry Low Back Score: 17 Improvement % Improvement: 0
== END 2023-09-16 12:31 | disposition home or self-care (01) ==
LOC: PT 11:30
PROVIDERS: PCP Student in an Organized Health Care Education/Training Program
DX: M48.02 Spinal stenosis, cervical region (principal); M48.062 Spinal stenosis, lumbar region with neurogenic claudication; M47.816 Spondylosis without myelopathy or radiculopathy, lumbar region; M51.36 Other intervertebral disc degeneration, lumbar region
CPT/HCPCS: 97110; 97161; 97530

== ENCOUNTER 2024-07-21 09:00 | Outpatient (RCR) | payer MEDICARE, SELFPAY ==
--- NOTE | 2024-03-04 14:03 | HP.PTEVAL_ITS ---
Patient's Visit Information Visit Information Visit Information: FROY PITTMAN is a 68 year old F referred to Physical Therapy by JENNIFER Arellano with a diagnosis of LUMBAR INTERVERTEBRAL DISC DISPL. S/P SX 12/16/23. Date of Evaluation: 03/04/24 Physical Therapist: Aura Peterson PT, Cert MDT Visit Plan Frequency: 2-3x /Week Duration: 4-6 Weeks Plan: GAIT TRAINING NEEDED WITH AD (IF CANE USE IN L UE FOR R KNEE) ON LEVEL SUFACES AND UP AND DOWN STEPS (PATIENT HAS BASESMENT). POSTURE CORRECTION/STRENGTHENING, INSTRUCTION IN APPROPRIATE BODY MECHANICS AND ACTIVITY MODIFICATIONS. DLS STARTING WITH A NEUTRAL SPINE PROGRESSING ROM TOLERATED. JASMINA LE ROM, STRETCHING AND STRENGTHENING. HEP INSTRUCTION. Subjective Subjective: Work/Leisure: RETIRED Present symptoms: LOW BACK PAIN. Present since: ABOUT 5 YEARS AGO Pain Scale: WORST 7/10, LEAST 0/10 Currently: 5/10 Is it getting better, worse or staying the same: GETTING BETTER. CAN TRAILER STEERER FEET BETTER. Commenced as a result of: NO APPARENT REASON Symptoms at onset: LOW BACK PAIN Worse: GETTING UP AND DOWN FROM CHAIRS, GETTING OUT OF BED AND STANDING UP, WA LKING TOO MUCH AT THE GROCERY STORE, WALKING MORE THAN 1/3 TO 1/2 MILE A DAY. GETTING DRESSED - MASHA PUTTING SHOES AND SOCKS ON. Better: ICE PACK, TYLONOL, MUSCLE RELAXER, HEAT PACK Disturbed sleep: NO Previous history/Previous treatment: PAIN MGMT/ERIKA'S. DRY NEEDLING, MUSCLE RELAXERS, GABAPENTIN, MOBIC, PHYSICAL THERAPY. Treatment this episode: LUMBAR SURGERY 12/16/2023: JASMINA POST LAMINECTOMIES, PARTIAL FACETECTOMY AND FORAMINOTOMIES L2 - S1. DIRECT EXITING AND TRAVERSING NERVE DECOMPRESSION JASMINA L4, L5 AND S1 NERVE ROOTS. Coughing/sneezing/straining: POSITIVE FOR INCREASED PAIN L> R. Gait: INDEP WITHOUT AD. DENIES FALLS. VERY DIFFICULTY TO WALK IN THE MORNINGS. OCCASSIONALLY USES WALKER TO GET TO BATHROOM IN THE MORNING. Bowel or Bladder Dysfunction: OAB. URINARY LEAKAGE. DENIES BOWEL INCONTINENCE. HAS INTERSTIM FOR BLADDER. Accidents: NO Unexplained weight loss: NO Imaging: NONE SINCE SURGERY PER PATIENT REPORT. PMH/Recent major surgery: ROSALEE-DANLOS OTHER: PATIENT REPORTS THE SURGEON LIFTED ALL RESTRICTIONS YESTERDAY. Objective Objective: Sitting/Standing Posture: DECREASED LUMBAR LORDOSIS. SLOUCHED IN SITTING. Active Correction of posture: ABLE TO PARTIALLY CORRECT. DOES NOT MAINTAIN. Other Observations: INDEP GAIT INTO PT WITHOUT ANY ASSISTIVE DEVICES. PATIENT IS ABLE TO TRANSFER SIT TO STAND INDEP'LY WITH HANDS ON KNEES X 1 WITH MOD DIFFICULTY. INTERMITTENT LOB/STAGGERING AND REGAINS BALANCE INDEP'LY. C/O R KNEE PAIN AND REPORTS HISTORY OF R KNEE GIVING OUT. THIS PT RECOMMENDED AD FOR SAFETY. 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 INSTRUCTED HER TO BRING HER CANE FOR TRAINING AND EDUCATED HER IN FALL RISK WIHT RECENT BACK SURGERY. Sensory deficit: JASMINA LE LIGHT TOUCH SENSATION GROSSLY INTACT AND SYMMETRICAL ROM deficit: JASMINA LE HS AND GASTROC-SOLEUS COMPLEX TIGHTNESS. Motor deficit: JASMINA HIPS 4-/5, KNEES 4/5, ANKLES 4/5. Reflexes: JASMINA LE DTR'S 2+ Dural Signs: NEGATIVE JASMINA LE'S. Lumbar mvmt loss: flex - MOD TO [place] ext - [place] R SG - [place] L SG - [place] Core strength: POOR. Palpation: NO ACUTE LUMBAR TENDERNESS. WELL HEALED LUMBAR INCISION. INCREASED MUSCLE TONE PARASPINALS. PATIENT DENIES PAIN WITH R KNEE PALPATION AND THERE IS NO GROSS SWELLING IN THE R KNEE COMPARED TO THE LEFT. SHE ALSO DENIES R KNEE PAIN WITH MMT'ING TODAY BUT DOES REPORT THE HISTORY OF THE R KNEE GIVING OUT ON HER. Balance/Special Test Scores Oswestry Low Back Score: 18 Goals Goal 1:: DECREASE C/O LOW BACK PAIN BY AT LEAST 75% TO EASE ADL'S. Goal Time Frame: 6-8 Weeks Goal 2:: IMPROVE PERSONAL CARE, TRANSFER, LIFTING, WALKING, STANDING, SOCIAL LIFE AND HOME MAKING FUNCTION Goal Time Frame: 6-8 Weeks Goal 3:: INSTRUCT IN PROPHYLAXIS Rehabilitation Potential Physical Therapy Diagnosis: CORE AND LE STIFFNESS AND WEAKNESS. DIFFICULTY WITH GAIT/BALANCE. Rehabilitation Potential: Good Anticipated Interventions Patient/Client Instruction: Educate patient on: Condition, Plan of Care and Risk Factors For the Purpose of:: To improve self management Therapeutic Exercise to Include: Strength training, Body mechanics, Postural training, Flexibilty training, Gait and locomotor training, Neuromotor development and Dynamic Lumbar Stabilization For the Purpose of:: To decrease pain, To increase ROM, To improve muscle performance and motor function, To improve ability to perform ADL's, To increase tolerance to activity/condition/position, To improve ability of physical actions for home/community/work/leisure, To improve gait and locomotor functions and To improve self management Cryotherapy (ice pack, ice massage): Yes Thermo therapy (hot pack): Yes For the Purpose of:: To decrease pain, To decrease swelling/inflammation and To improve nutrient delivery to tissue Text: Thank you for the opportunity to evaluate your patient. For Medicare and Medicare HMO plans, please review the plan of care and approve it. It will need to be FAXED BACK to us at [phone] for Medicare purposes. For Medicare only, by signing this I certify the plan of care. Please let me know if there are questions or concerns regarding this plan of care. Physician Signature: Date:
--- NOTE | 2024-04-07 14:37 | HP.PTREVAL_ITS ---
Re-Evaluation Intro: Sheri Martin, TERI-C, It has been my pleasure to treat FROY PITTMAN over the last 11 visits for LUMBAR INTERVERTEBRAL DISC DISPL. S/P SX 12/16/23. Please see the progress note below for an update on the physical therapy plan of care! Subjective Subjective: PATIENT REPORTS HER LBP IS BETTER. PATIENT REPORTS HER R SI AND R KNEE ARE GETTING BETTER TOO. SHE STATES DOING THE STEPS IN AND OUT OF HER HOUSE ARE EASIER NOW ALSO UNLESS SHE HAS FLARED UP HER SI AND IT BAND FROM [employer]. PATIENT DENIES ANY FALLS. PATIENT REPORTS SHE IS STILL HAVING A LOT OF LOW BACK PAIN WHEN SHE TRIES TO PUT HER SHOES AND SOCKS ON - ESPECIALLY THE LEFT . STILL NEEDS GRABBER TO GET THINGS OFF THE FLOOR. LOW BACK PAIN IS CURRENTLY RANGING 1-7/10 BUT USUALLY NOT MORE THAN 4/10 PAIN IN THE LAST WEEK. HAS NOT FELT COMFORTABLE DOING STEPS TO BASEMENT YET. Objective Objective/Function: PATIENT WAS SEEN TODAY FOR RE-ASSESSMENT OF PROGRESS TOWARD THE SET PT GOALS AND THE NEED FOR FURTHER PHYSICAL THERAPY VS READINESS FOR DISCHARGE. THIS PATIENT IS MAKING GOOD PROGRESS WITH PHYSICAL THERAPY AND IS A GOOD CANDIDATE TO CONTINUE BASED ON PROGRESS MADE AND ROOM FOR FURTHER IMPROVEMENT. PATIENT IS AGREEABLE. UPON EXAM TODAY: THIS PATIENT AMBULATES INDEP'LY INTO PT TODAY WITHOUT ANY AD'S OR LOB WITH FAIR CADANCE. SHE IS NOW CLEARING HER FEET BETTER DURING SWING PHASE AND HAS INCREASED HER STRIDE LENGTH. SHE IS ABLE TO EASILY TRANSFER FROM SIT TO STAND WITHOUT UE ASSIST. ROM deficit: JASMINA LE HS AND GASTROC-SOLEUS COMPLEX TIGHTNESS. Motor deficit: HIPS 4/5, KNEES 4/5, ANKLES 5/5. Dural Signs: NEGATIVE JASMINA LE'S. Lumbar mvmt loss: flex - MOD ext - MOD TO [place] R SG - [place] L SG - [place] PATIENT DENIES INCREASED BACK PAIN AFTER LUMBAR ROM TESTING. Core strength: FAIR SLS TESTING: A LITTLE WOBBLY BUT >10 SEC JASMINA LE'S WITHOUT UE ASSIST. TANDEM STANCE: INDEP WITHOUT UE ASSIST JASMINA BUT WITH DECREASED PATIENT CONFIDENCE. STEPS: PATIENT ABLE TO INDEP ASCEND AND DESCEND STAIRS RECIP WITH ONE HR BUT C/O INCREASED BACK PAIN DESCENDING. PATIENT WITH DECREASED LE ECCENTRIC CONTROL JASMINA COMING DOWN STEPS CAUSING INCREASED IMPACT ON STEP BELOW. Plan Plan Plan: CONTINUE PT 2X'S A WK X 4-6 WKS FOR GAIT TRAINING AND STAIR TRAINING. POSTURE CORRECTION/STRENGTHENING, INSTRUCTION IN APPROPRIATE BODY MECHANICS AND ACTIVITY MODIFICATIONS. DLS STARTING WITH A NEUTRAL SPINE PROGRESSING ROM TOLERATED. JASMINA LE ROM, STRETCHING AND STRENGTHENING. HEP INSTRUCTION. Balance/Gait/Functional tests Balance/Special Test Scores Oswestry Low Back Score: 13 Goals Goals Goal 1:: DECREASE C/O LOW BACK PAIN BY AT LEAST 75% TO EASE ADL'S. Goal Time Frame: 6-8 Weeks Goal Progress: Progressing Goal 2:: IMPROVE PERSONAL CARE, TRANSFER, LIFTING, WALKING, STANDING, SOCIAL LIFE AND HOME MAKING FUNCTION Goal Time Frame: 6-8 Weeks Goal Progress: Progressing Goal 3:: INSTRUCT IN PROPHYLAXIS Goal Progress: Progressing Anticipated Interventions Anticipated Interventions Patient/Client Instruction: Educate patient on: Condition, Plan of Care and Risk Factors For the Purpose of:: To improve self management Therapeutic Exercise to Include: Strength training, Body mechanics, Postural training, Flexibilty training, Gait and locomotor training, Neuromotor development and Dynamic Lumbar Stabilization For the Purpose of:: To decrease pain, To increase ROM, To improve muscle performance and motor function, To improve ability to perform ADL's, To increase tolerance to activity/condition/position, To improve ability of physical actions for home/community/work/leisure, To improve gait and locomotor functions and To improve self management Cryotherapy (ice pack, ice massage): Yes Thermo therapy (hot pack): Yes For the Purpose of:: To decrease pain, To decrease swelling/inflammation and To improve nutrient delivery to tissue Re-Evaluation Ending Re-evaluation ending: Please do not hesitate to contact me at [phone] by phone or if you have questions or concerns regarding this new plan of care! Sincerely, Aura Peterson, PT, Cert MDT
--- NOTE | 2024-05-19 09:32 | HP.PTREVAL ---
Re-Evaluation Intro: Sheri Martin, TERI-C, It has been my pleasure to treat FROY PITTMAN over the last 21 visits for LUMBAR INTERVERTEBRAL DISC DISPL. S/P SX 12/16/23. Please see the progress note below for an update on the physical therapy plan of care! Subjective Subjective: PATIENT REPORTS HER IT BAND PAIN IS GONE NOW AND SHE CAN PUT HER R SHOE AND SOCK ON OK NOW AND ITS EASIER TO DRY HER LEG AND FOOT NOW. 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 SHE REPORTS SHE IS GETTING BETTER ON THE STEPS ONLY NEEDING ONE HR UP AND DOWN AND THAT IS MAKING IT EASIER FOR HER TO GO TO HER BASEMENT WHEN NEEDED AND CARRYING GROCERIES IN. SHE IS STILL REPORTING INTERMITTENT R KNEE PAIN AND INTERMITTENT LBP RANGING 0-5/10. SHE REPORTS SHE CAN RIDE IN THE CAR ABOUT 40 TO 45 MIN AND BE OK BUT MORE THAN THAT IS PAINFUL AND AVERAGING ABOUT 1300 STEPS A DAY NOW. Objective Objective/Function: PATIENT WAS SEEN TODAY FOR RE-ASSESSMENT OF PROGRESS TOWARD THE SET PT GOALS AND THE NEED FOR FURTHER PHYSICAL THERAPY VS READINESS FOR DISCHARGE. THIS PATIENT IS MAKING GREAT PROGRESS WITH PT BUT STILL HAS R LE ANKLE, HIP EXTENSOR AND KNEE FLEXION WEAKNESS COMPARED TO LEFT ALONG WITH BACK AND R KNEE PAIN LIMITING ADL'S. SHE IS A GOOD CANDIDATED TO CONTINUE PT FOR PRE DECREASING FREQUENCY WHILE WORKING TOWARD INDEP HEP. PATIENT IS AGREEABLE. UPON EXAM TODAY: TUG TEST: 8.56 INDEP'LY W/O AD. 30 STS TEST: = 11 WITH HANDS ACROSS CHEST LE PEAK FORCE STRENGTH IN LBS: HIP FLEX: R 9.4 L 9.0 HIP ABD: R 13.0 L 11.9 HIP EXT: R 11.3 L 13.3 KNEE FLEX: R 17.3 L 18.7 KNEE EXT: R 25.9 L 25.6 ANKLE DORSI: R 8.6 L 11.0 ANKLE PLANTAR: R 16.8 L 18.6 Plan Plan Plan: CONTINUE PT 1X/WK X 6 WKS PER ORIG POC AND FOCUSING ON HEP PROGRESSIONS FOR R ANKLE, KNEE FLEXION AND HIP EXTENSION STRENGTHENING TO IMPROVE PATIENTS ABILITY TO CARRY ITEMS UP AND DOWN STEPS, GET IN/OUT OF CAR, PUT FITTED SHEETS ON BED AND TOLERATE INCREASED STEPS PER DAY. Balance/Gait/Functional tests Balance/Special Test Scores Oswestry Low Back Score: 8 TUG Test Time Seconds: 9.65 Tug Test: <10 sec.=free mobile 30 Second Chair Rise Test Seconds: 11 Goals Goals Goal 1:: DECREASE C/O LOW BACK PAIN BY AT LEAST 75% TO EASE ADL'S. Goal Time Frame: 6-8 Weeks Goal Progress: Progressing Goal 2:: IMPROVE PERSONAL CARE, TRANSFER, LIFTING, WALKING, STANDING, SOCIAL LIFE AND HOME MAKING FUNCTION Goal Time Frame: 6-8 Weeks Goal Progress: Progressing Goal 3:: INSTRUCT IN PROPHYLAXIS Goal Progress: Progressing Anticipated Interventions Anticipated Interventions Patient/Client Instruction: Educate patient on: Condition, Plan of Care and Risk Factors For the Purpose of:: To improve self management Therapeutic Exercise to Include: Strength training, Body mechanics, Postural training, Flexibilty training, Gait and locomotor training, Neuromotor development and Dynamic Lumbar Stabilization For the Purpose of:: To decrease pain, To increase ROM, To improve muscle performance and motor function, To improve ability to perform ADL's, To increase tolerance to activity/condition/position, To improve ability of physical actions for home/community/work/leisure, To improve gait and locomotor functions and To improve self management Cryotherapy (ice pack, ice massage): Yes Thermo therapy (hot pack): Yes For the Purpose of:: To decrease pain, To decrease swelling/inflammation and To improve nutrient delivery to tissue Re-Evaluation Ending Re-evaluation ending: Please do not hesitate to contact me at [phone] by phone or if you have questions or concerns regarding this new plan of care! Sincerely, Aura Peterson, PT, Cert MDT
--- NOTE | 2024-06-08 13:46 | HP.PTEVAL ---
Patient's Visit Information Visit Information Visit Information: FROY PITTMAN is a 69 year old F referred to Physical Therapy by JENNIFER Arellano with a diagnosis of LUMBAR INTERVERTEBRAL DISC DISPL. S/P SX 12/16/23. Date of Evaluation: 03/04/24 Physical Therapist: Aura Peterson, PT, Cert MDT Visit Plan Frequency: 2-3x /Week Duration: 4-6 Weeks Plan: CONTINUE PT 1X/WK X 6 WKS PER ORIG POC AND FOCUSING ON HEP PROGRESSIONS FOR R ANKLE, KNEE FLEXION AND HIP EXTENSION STRENGTHENING TO IMPROVE PATIENTS ABILITY TO CARRY ITEMS UP AND DOWN STEPS, GET IN/OUT OF CAR, PUT FITTED SHEETS ON BED AND TOLERATE INCREASED STEPS PER DAY. Subjective Subjective: Work/Leisure: RETIRED Present symptoms: LOW BACK PAIN. Present since: ABOUT 5 YEARS AGO Pain Scale: WORST 7/10, LEAST 0/10 Currently: 5/10 Is it getting better, worse or staying the same: GETTING BETTER. CAN CASTING CHIPPER FEET BETTER. Commenced as a result of: NO APPARENT REASON Symptoms at onset: LOW BACK PAIN Worse: GETTING UP AND DOWN FROM CHAIRS, GETTING OUT OF BED AND STANDING UP, WALKING TOO MUCH AT THE [facility], WALKING MORE THAN 1/3 TO 1/2 MILE A DAY. GETTING DRESSED - MASHA PUTTING SHOES AND SOCKS ON. Better: ICE PACK, TYLONOL, MUSCLE RELAXER, HEAT PACK Disturbed sleep: NO Previous history/Previous treatment: PAIN MGMT/ERIKA'S. DRY NEEDLING, MUSCLE RELAXERS, GABAPENTIN, MOBIC, PHYSICAL THERAPY. Treatment this episode: LUMBAR SURGERY 12/16/2023: JASMINA POST LAMINECTOMIES, PARTIAL FACETECTOMY AND FORAMINOTOMIES L2 - S1. DIRECT EXITING AND TRAVERSING NERVE DECOMPRESSION JASMINA L4, L5 AND S1 NERVE ROOTS. Coughing/sneezing/straining: POSITIVE FOR INCREASED PAIN L> R. Gait: INDEP WITHOUT AD. DENIES FALLS. VERY DIFFICULTY TO WALK IN THE MORNINGS. OCCASSIONALLY USES WALKER TO GET TO BATHROOM IN THE MORNING. Bowel or Bladder Dysfunction: OAB. URINARY LEAKAGE. DENIES BOWEL INCONTINENCE. HAS INTERSTIM FOR BLADDER. Accidents: NO Unexplained weight loss: NO Imaging: NONE SINCE SURGERY PER PATIENT REPORT. PMH/Recent major surgery: ROSALEE-DANLOS OTHER: PATIENT REPORTS THE SURGEON LIFTED ALL RESTRICTIONS YESTERDAY. Pain LB: Pain Intensity (Out of 10): 4 R hip: Pain Intensity (Out of 10): 0 R knee: Pain Intensity (Out of 10): 5 Comment: posterior to where the pain was on Wed. R ankle: Pain Intensity (Out of 10): 4 Objective Objective: Sitting/Standing Posture: DECREASED LUMBAR LORDOSIS. SLOUCHED IN SITTING. Active Correction of posture: ABLE TO PARTIALLY CORRECT. DOES NOT MAINTAIN. Other Observations: INDEP GAIT INTO PT WITHOUT ANY ASSISTIVE DEVICES. PATIENT IS ABLE TO TRANSFER SIT TO STAND INDEP'LY WITH HANDS ON KNEES X 1 WITH MOD DIFFICULTY. INTERMITTENT LOB/STAGGERING AND REGAINS BALANCE INDEP'LY. C/O R KNEE PAIN AND REPORTS HISTORY OF R KNEE GIVING OUT. THIS PT RECOMMENDED AD FOR SAFETY. 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 INSTRUCTED HER TO BRING HER CANE FOR TRAINING AND EDUCATED HER IN FALL RISK WIHT RECENT BACK SURGERY. Sensory deficit: JASMINA LE LIGHT TOUCH SENSATION GROSSLY INTACT AND SYMMETRICAL ROM deficit: JASMINA LE HS AND GASTROC-SOLEUS COMPLEX TIGHTNESS. Motor deficit: JASMINA HIPS 4-/5, KNEES 4/5, ANKLES 4/5. Reflexes: JASMINA LE DTR'S 2+ Dural Signs: NEGATIVE JASMINA LE'S. Lumbar mvmt loss: flex - MOD TO [place] ext - [place] R SG - [place] L SG - [place] Core strength: POOR. Palpation: NO ACUTE LUMBAR TENDERNESS. WELL HEALED LUMBAR INCISION. INCREASED MUSCLE TONE PARASPINALS. PATIENT DENIES PAIN WITH R KNEE PALPATION AND THERE IS NO GROSS SWELLING IN THE R KNEE COMPARED TO THE LEFT. SHE ALSO DENIES R KNEE PAIN WITH MMT'ING TODAY BUT DOES REPORT THE HISTORY OF THE R KNEE GIVING OUT ON HER. Balance/Special Test Scores Oswestry Low Back Score: 8 Oswestry Neck Score: 9 TUG Test Time Seconds: 9.65 30 Second Chair Rise Test Seconds: 11 Goals Goal 1:: DECREASE C/O LOW BACK PAIN BY AT LEAST 75% TO EASE ADL'S. Goal Time Frame: 6-8 Weeks Goal 2:: IMPROVE PERSONAL CARE, TRANSFER, LIFTING, WALKING, STANDING, SOCIAL LIFE AND HOME MAKING FUNCTION Goal Time Frame: 6-8 Weeks Goal 3:: INSTRUCT IN PROPHYLAXIS Rehabilitation Potential Physical Therapy Diagnosis: CORE AND LE STIFFNESS AND WEAKNESS. DIFFICULTY WITH GAIT/BALANCE. Rehabilitation Potential: Good Anticipated Interventions Patient/Client Instruction: Educate patient on: Condition, Plan of Care and Risk Factors For the Purpose of:: To improve self management Therapeutic Exercise to Include: Strength training, Body mechanics, Postural training, Flexibilty training, Gait and locomotor training, Neuromotor development and Dynamic Lumbar Stabilization For the Purpose of:: To decrease pain, To increase ROM, To improve muscle performance and motor function, To improve ability to perform ADL's, To increase tolerance to activity/condition/position, To improve ability of physical actions for home/community/work/leisure, To improve gait and locomotor functions and To improve self management Cryotherapy (ice pack, ice massage): Yes Thermo therapy (hot pack): Yes For the Purpose of:: To decrease pain, To decrease swelling/inflammation and To improve nutrient delivery to tissue Text: Thank you for the opportunity to evaluate your patient. For Medicare and Medicare HMO plans, please review the plan of care and approve it. It will need to be FAXED BACK to us at [phone] for Medicare purposes. For Medicare only, by signing this I certify the plan of care. Please let me know if there are questions or concerns regarding this plan of care. Physician Signature: Date:
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
--- NOTE | 2024-06-30 09:59 | HP.PTDCSUM ---
Discharge Summary D/C summary: It has been my pleasure to treat IGNACIA PITTMAN referred by JENNIFER Arellano, with the diagnosis of LUMBAR INTERVERTEBRAL DISC DISPL. S/P SX 12/16/23 for a total of 27 visit(s). Discharge Date: Please see the following information for a summary of their discharge status. Subjective Subjective: Pt. rates back pain at 6/10 currently and weather is contributing to this. She states that whenever it rains she is more sore. Pt. states that she is about 80% better since starting physical therapy. She states that she feels stronger and she is able to walk about .6 miles now and stairs are also easier. Pt. states that she feels she is good to continue with her exercises at home for her back at this time. Pain LB: Pain Intensity (Out of 10): 6 R hip: Pain Intensity (Out of 10): 0 R knee: Pain Intensity (Out of 10): 3 R ankle: Pain Intensity (Out of 10): 0 Overall Improvement % Improvement: 80 Objective Objective/Function: Ignacia has come to 27 sessions of physical therapy focusing on improving back/core strength, LE strength, and balance. Reviewed pt. goals for therapy and she has met her goals for therapy. Educated pt. to continue with her current HEP. Pt. has been discharged from physical therapy for her low back at this time and is in agreement with this. Goals Goal 1:: DECREASE C/O LOW BACK PAIN BY AT LEAST 75% TO EASE ADL'S. Goal Progress: Goal Met Goal 2:: IMPROVE PERSONAL CARE, TRANSFER, LIFTING, WALKING, STANDING, SOCIAL LIFE AND HOME MAKING FUNCTION Goal Progress: Goal Met Goal 3:: INSTRUCT IN PROPHYLAXIS Goal Progress: Goal Met Plan Plan: Pt. has been discharged from physical therapy for her low back at this time and will continue with her exercises at home. D/C Information d/c sentence: If there are questions or concerns regarding this patient's physical therapy, please feel free to call me at [phone]. Thank you for the referral of this patient. Sincerely, Guille Cook Balance/Gait/Functional tests Balance/Special Test Scores Oswestry Low Back Score: 8 Oswestry Neck Score: 9 TUG Test Time Seconds: 9.65 Tug Test: <10 sec.=free mobile 30 Second Chair Rise Test Seconds: 11 Improvement % Improvement: 80
--- NOTE | 2024-07-21 10:03 | HP.PTDCSUM ---
Discharge Summary D/C summary: It has been my pleasure to treat IGNACIA PITTMAN referred by JENNIFER Arellano, with the diagnosis of LUMBAR INTERVERTEBRAL DISC DISPL. S/P SX 12/16/23 for a total of 27 visit(s). Discharge Date: Please see the following information for a summary of their discharge status. Subjective Subjective: Pt. rates back pain at 6/10 currently and weather is contributing to this. She states that whenever it rains she is more sore. Pt. states that she is about 80% better since starting physical therapy. She states that she feels stronger and she is able to walk about .6 miles now and stairs are also easier. Pt. states that she feels she is good to continue with her exercises at home for her back at this time. Pain LB: Pain Intensity (Out of 10): 6 R hip: Pain Intensity (Out of 10): 0 R knee: Pain Intensity (Out of 10): 3 R ankle: Pain Intensity (Out of 10): 0 Overall Improvement % Improvement: 80 Objective Objective/Function: Ignacia has come to 27 sessions of physical therapy focusing on improving back/core strength, LE strength, and balance. Reviewed pt. goals for therapy and she has met her goals for therapy. Educated pt. to continue with her current HEP. Pt. has been discharged from physical therapy for her low back at this time and is in agreement with this. Goals Goal 1:: DECREASE C/O LOW BACK PAIN BY AT LEAST 75% TO EASE ADL'S. Goal Progress: Goal Met Goal 2:: IMPROVE PERSONAL CARE, TRANSFER, LIFTING, WALKING, STANDING, SOCIAL LIFE AND HOME MAKING FUNCTION Goal Progress: Goal Met Goal 3:: INSTRUCT IN PROPHYLAXIS Goal Progress: Goal Met Plan Plan: Pt. has been discharged from physical therapy for her low back at this time and will continue with her exercises at home. D/C Information d/c sentence: If there are questions or concerns regarding this patient's physical therapy, please feel free to call me at [phone]. Thank you for the referral of this patient. Sincerely, Aura Peterson, PT, Cert MDT Balance/Gait/Functional tests Balance/Special Test Scores Oswestry Low Back Score: 8 Oswestry Neck Score: 9 TUG Test Time Seconds: 9.65 Tug Test: <10 sec.=free mobile 30 Second Chair Rise Test Seconds: 11 Improvement % Improvement: 80
== END 2024-07-21 19:00 | disposition home or self-care (01) ==
LOC: PT 09:00
PROVIDERS: PCP Student in an Organized Health Care Education/Training Program; Referring Provider Nurse Practitioner; Visit Provider Nurse Practitioner
DX: M51.26 Other intervertebral disc displacement, lumbar region (principal)
CPT/HCPCS: 97035; 97110; 97162; 97164; 97530